=== PATIENT | male | born 1960 | race Caucasian/White ===

== ENCOUNTER → 2019-03-17 | Outpatient (CLI) | payer MEDICARE, MEDICAID ==
[~2019-03-17] MED LIST: BENZ200C25 PO; FAMO20TA5 PO; GADOBUTROL 10 MMOL/10 ML (GADAVIST) VIAL IV ONE; HYDR-34 PO; METO10TA3 PO; SLEEPING PILL; TETR15DR82 OP; TRAM50TA2 PO; TRAZ-144 PO
[2019-03-17 08:16] LABS: BUN/CREATININE RATIO 8; CREATININE SERUM 0.83 MG/DL (0.60-1.30); GFR ESTIMATED > 60
--- NOTE | 2019-03-17 11:07 | Diagnostic Imaging Report ---
MRI of the brain and IACs with and without contrast. Indication: Headache, hearing loss. Multiple images utilizing T1 and T2-weighted sequences were obtained. Additional images for following administration of intravenous contrast were also performed. Magnified images of the skull base were also obtained both before and after administration of intravenous contrast in both the coronal and axial planes. There are no prior studies available for comparison. The images through the skull base fail to show any abnormal enhancement of the 7th or 8th nerve complexes to suggest a mass lesion. There is no abnormal enhancement within the brain to suggest a neoplastic or infectious process either. Furthermore there is no abnormal signal arising from the brain on the diffusion series to indicate an area of acute ischemia. There is no mass, shift in midline or hemorrhage. The T2 FLAIR series does show focal and diffuse areas of increased signal in the periventricular white matter bilaterally. These findings are nonspecific but may be related to encephalomalacia from microvascular ischemia. There is also cortical atrophy. The degree of atrophy is consistent with the patient's age. The ventricles are not abnormally dilated. The sella is not enlarged and expected carotid flow voids are evident bilaterally. The orbits are symmetrical and within normal limits. The sinuses are generally clear. Impression: 1. There is no evidence for acute intracranial abnormality. 2. There is no abnormal enhancement on the postcontrast series to suggest a neoplastic or infectious process. In particular there is no abnormality of the 7th or 8th nerve complexes. 3. There are senescent changes including cortical atrophy and periventricular encephalomalacia. Dictated by: Dictated on workstation # [id number]
== END ==
LOC: RAD 07:46
PROVIDERS: ATTEND Otolaryngology Otolaryngology/Facial Plastic Surgery
DX: G93.89 Other specified disorders of brain (principal); G31.9 Degenerative disease of nervous system, unspecified; H91.8X1 Other specified hearing loss, right ear
CPT/HCPCS: 36415; 70553; 82565; 84520

== ENCOUNTER 2019-05-21 20:29 | Emergency (ER) | payer MEDICARE, MEDICAID ==
[~2019-05-21] VITALS: Ht 182.9 cm; Wt 80.0 kg
[~2019-05-21 20:29] MED LIST changes: -GADOBUTROL 10 MMOL/10 ML (GADAVIST) VIAL IV ONE
[2019-05-21] MEDS ORDERED: KETOROLAC 30 MG/ML VIAL IVP ONE (20:45)
[2019-05-21] MEDS ORDERED: THIAMINE INJECTION 100 MG, FOLIC ACID INJECTION 1 MG, VITAMIN MULTI INJECTION 10 ML, MA... IV ONE ×5 (20:45)
--- NOTE | 2019-05-21 20:48 | ED General ---
General Chief Complaint: General Problems/Pain Stated Complaint: PAIN ALL OVER Source of Information: Patient, EMS Exam Limitations: No Limitations History of Present Illness Date Seen by Provider: May 21, 2019 Time Seen by Provider: 20:31 Initial Comments Patient presents to ER by EMS from home with chief complaint that sometime aroun d noon he started experiencing some body aches mostly in his joints starting his knees working all at the top of his head. He took some aspirin about 4:00 in the afternoon with no relief. He is not having any rash or blistering. No itching or sweats. He denies fever nausea vomiting diarrhea dysuria or constipation. He's never had anything like this before. He started drinking had about 3 beers around 1900. He drinks beer daily. He has been on Bactrim for the past 4 days or infection. He's had 2 bladder infections this year. In years ago he was seen by Dr. Smith for prostatic issues but did not have to have any surgeries for follow-up. He does not take any medicines for this. He is followed by Silverio Lewis at [facility]. He has not taken any Tylenol or other NSAIDs. He does have chronic osteoarthritis and all of his joints. He is retired. He said he was not doing anything strenuous today just sitting around. He denies any recent trauma. He rates his pain as a 10 out of 10. He does not take a statin. Allergies and Home Medications Allergies Coded Allergies: Penicillins (Verified Allergy, Unknown, 06/25/14) penicillin (Unverified Allergy, Unknown, 01/03/15) Home Medications Benzonatate 200 Mg Capsule, 1 EACH PO TID PRN for COUGH Prescribed by: LEELA ANDREWS on 01/04/15 0035 Trazodone Hcl 50 Mg Tablet, 100 MG PO HS, (Reported) TAKE 2 (50MG) TABS Patient Home Medication List Home Medication List Reviewed: Yes Review of Systems Review of Systems Constitutional: No chills, No fever, No malaise EENTM: No ear discharge, No ear pain Respiratory: No cough, No short of breath Cardiovascular: No chest pain, No edema Gastrointestinal: No abdominal pain, No constipation, No diarrhea, No nausea, No vomiting Genitourinary: No discharge, No dysuria, No hematuria Musculoskeletal: see HPI, back pain, joint pain Skin: No pruritus, No rash Psychiatric/Neurological: Headache; Denies Numbness, Denies Paresthesia Hematologic/Lymphatic: Denies Anemia, Denies Blood Clots All Other Systems Reviewed Negative Unless Noted: Yes Past Qbhiisw-Jwmzkp-Fqzzxw Hx Patient Social History Alcohol Use: Regular Use Alcohol Beverage of Choice: Beer Recreational Drug Use: No Smoking Status: Current Everyday Smoker Type Used: Cigarettes Recent Foreign Travel: No Contact w/Someone Who Travel: No Past Medical History Abdominal, Eye Surgery Emphysema Cataract Sleep Difficulties Physical Exam Vital Signs Vital Signs - First Documented 05/21/19 20:37 Temp 37.0 Pulse 100 Resp 18 B/P (MAP) 158/93 (114) Pulse Ox 99 O2 Delivery Room Air Capillary Refill : Height, Weight, BMI Height: 6'0" Weight: 169lbs. oz. 76.611267mc; BMI Method:Stated General Appearance: No Apparent Distress, WD/WN, Anxious Eyes: Bilateral Eye Normal Inspection, Bilateral Eye PERRL, Bilateral Eye EOMI HEENT: PERRL/EOMI, TMs Normal, Normal ENT Inspection, Pharynx Normal, Moist Mucous Membranes (oral mucosa is mildly dry.), Other (face and neck appear to be flushed) Neck: Full Range of Motion, Normal Inspection, Non Tender, Supple Respiratory: Chest Non Tender, Lungs Clear, Normal Breath Sounds, No Accessory Muscle Use, No Respiratory Distress Cardiovascular: Regular Rate, Rhythm, No Edema, Normal Peripheral Pulses Gastrointestinal: Normal Bowel Sounds, Non Tender, Soft Back: Normal Inspection, No Vertebral Tenderness Extremity: Normal Capillary Refill, Normal Inspection, Non Tender (does not report any tenderness when we palpate his upper and lower extremities while distracted by conversation) Neurologic/Psychiatric: Alert, Oriented x3, No Motor/Sensory Deficits, Normal Mood/Affect, final cigar and box examiner II-XII Norm as Tested Skin: Normal Color, Warm/Dry, Other (flush in the face) Progress/Results/Core Measures Suspected Sepsis SIRS Temperature: Pulse: Respiratory Rate: Laboratory Tests 05/21/19 21:23: White Blood Count 8.4 Blood Pressure / Mean: Laboratory Tests 05/21/19 21:23: Creatinine 1.05, Platelet Count 199, Total Bilirubin 0.5 Results/Orders Lab Results Laboratory Tests Test 05/21/19 20:40 05/21/19 21:23 Range/Units Urine Color YELLOW Urine Clarity CLEAR Urine pH 5.5 5-9 Urine Specific [place] 1.015 L 1.016-1.022 Urine Protein 2+ H NEGATIVE Urine Glucose (UA) NEGATIVE NEGATIVE Urine Ketones NEGATIVE NEGATIVE Urine Nitrite NEGATIVE NEGATIVE Urine Bilirubin NEGATIVE NEGATIVE Urine Urobilinogen 0.2 < = 1.0 MG/DL Urine Leukocyte Esterase NEGATIVE NEGATIVE Urine RBC (Auto) 1+ H NEGATIVE Urine RBC 0-2 /HPF Urine WBC 2-5 /HPF Urine Crystals NONE /LPF Urine Bacteria TRACE /HPF Urine Casts NONE /LPF Urine Mucus NEGATIVE /LPF Urine Culture Indicated NO Urine Opiates Screen NEGATIVE NEGATIVE Urine Oxycodone Screen NEGATIVE NEGATIVE Urine Methadone Screen NEGATIVE NEGATIVE Urine Propoxyphene Screen NEGATIVE NEGATIVE Urine Barbiturates Screen NEGATIVE NEGATIVE Ur Tricyclic Antidepressants Screen NEGATIVE NEGATIVE Urine Phencyclidine Screen NEGATIVE NEGATIVE Urine Amphetamines Screen NEGATIVE NEGATIVE Urine Methamphetamines Screen NEGATIVE NEGATIVE Urine Benzodiazepines Screen NEGATIVE NEGATIVE Urine Cocaine Screen NEGATIVE NEGATIVE Urine Cannabinoids Screen NEGATIVE NEGATIVE White Blood Count 8.4 4.3-11.0 10^3/uL Red Blood Count 5.73 4.35-5.85 10^6/uL Hemoglobin 17.6 13.3-17.7 G/DL Hematocrit 47 40-54 % Mean Corpuscular Volume 83 80-99 FL Mean Corpuscular Hemoglobin 31 25-34 PG Mean Corpuscular Hemoglobin Concent 37 H 32-36 G/DL Red Cell Distribution Width 13.0 10.0-14.5 % Platelet Count 199 130-400 10^3/uL Mean Platelet Volume 10.4 7.4-10.4 FL Neutrophils (%) (Auto) 78 H 42-75 % Lymphocytes (%) (Auto) 11 L 12-44 % Monocytes (%) (Auto) 10 0-12 % Eosinophils (%) (Auto) 1 0-10 % Basophils (%) (Auto) 1 0-10 % Neutrophils # (Auto) 6.6 1.8-7.8 X 10^3 Lymphocytes # (Auto) 0.9 L 1.0-4.0 X 10^3 Monocytes # (Auto) 0.8 0.0-1.0 X 10^3 Eosinophils # (Auto) 0.0 0.0-0.3 10^3/uL Basophils # (Auto) 0.1 0.0-0.1 10^3/uL Sodium Level 129 L 135-145 MMOL/L Potassium Level 4.0 3.6-5.0 MMOL/L Chloride Level 100 98-107 MMOL/L Carbon Dioxide Level 16 L 21-32 MMOL/L Anion Gap 13 5-14 MMOL/L Blood Urea Nitrogen 9 7-18 MG/DL Creatinine 1.05 0.60-1.30 MG/DL Estimat Glomerular Filtration Rate > 60 BUN/Creatinine Ratio 9 Glucose Level 106 H 70-105 MG/DL Calcium Level 8.8 8.5-10.1 MG/DL Corrected Calcium 9.1 8.5-10.1 MG/DL Total Bilirubin 0.5 0.1-1.0 MG/DL Aspartate Amino Transf (AST/SGOT) 29 5-34 U/L Alanine Aminotransferase (ALT/SGPT) 30 0-55 U/L Alkaline Phosphatase 74 40-136 U/L C-Reactive Protein High Sensitivity 0.33 0.00-0.50 MG/DL Total Protein 7.1 6.4-8.2 GM/DL Albumin 3.6 3.2-4.5 GM/DL Serum Alcohol 45 H <10 MG/DL My Orders Orders - KIM MCDANIELS Thiamine Injection (Vitamin B-1 Injectio (05/21/19 20:45) Ketorolac Injection (Toradol Injection) (05/21/19 20:45) Cbc With Automated Diff (05/21/19 20:40) Comprehensive Metabolic Panel (05/21/19 20:40) Hs C Reactive Protein (05/21/19 20:40) Tick Panel With Lyme Eia (05/21/19 20:40) Ua Culture If Indicated (05/21/19 20:40) Drug Screen Stat (Urine) (05/21/19 20:40) Alcohol (05/21/19 20:40) Ed Iv/Invasive Line Start (05/21/19 21:02) Lactated Ringers (Lr 1000 Ml Iv Solution (05/21/19 21:02) Thiamine Tablet (Vitamin B-1 Tablet) (05/21/19 21:15) Folic Acid Tablet (Folic Acid Tablet) (05/21/19 21:15) Syphilis Antibody Screen (05/21/19 21:34) Medications Given in ED Current Medications Medications Dose Ordered Sig/Milo Route Start Time Stop Time Status Last Admin Dose Admin Folic Acid 1 mg ONCE ONCE PO 05/21/19 21:15 05/21/19 21:16 DC 05/21/19 21:28 1 MG Ketorolac Tromethamine 30 mg ONCE ONCE IVP 05/21/19 20:45 05/21/19 20:46 DC 05/21/19 21:28 30 MG Lactated Ringer's 1,000 ml @ 0 mls/hr Q0M ONCE IV 05/21/19 21:02 05/21/19 21:04 DC 05/21/19 21:28 0 MLS/HR Vital Signs/I&O 05/21/19 20:37 Temp 37.0 Pulse 100 Resp 18 B/P (MAP) 158/93 (114) Pulse Ox 99 O2 Delivery Room Air Capillary Refill : Progress Note #1: Time: 20:49 Progress Note Banana bags, Toradol and some basic labs. Suspect he may be having a reaction to the Bactrim and his alcohol use. Plan to switch him to Keflex if nothing else shows a interesting. Encourage him to follow-up with urology as necessary. Progress Note #2: Time: 21:56 Progress Note Patient received modest benefit from these Toradol. He been able to get up and walk to the bathroom several times. Suspect he does have prostatism. Plan to switch his antibiotic away from Bactrim to Keflex for another 6 days. We'll give him naproxen for the pain. He can also use Tylenol. We will encourage topical creams heating pads as well. Encourage him to follow-up with Dr. Smith. We will have him follow-up with primary care next week to follow up on the results of tick panel and RPR. Departure Impression Primary Impression: Myalgia Additional Impressions: Urinary tract infection Qualified Codes: N30.00 - Acute cystitis without hematuria Prostatism Disposition: HOME, SELF-CARE Condition: Stable Departure-Patient Inst. Decision time for Depature: 21:58 Referrals: [facility]/ (PCP) Primary Care Physician ABEBA LEWIS (Family) Primary Care Physician ALBA SMITH MD Patient Instructions: Benign Prostatic Hyperplasia (Enlarged Prostate), Urinary Tract Infection, Adult (DC), Muscle and Bone Pain (DC) Add. Discharge Instructions: For your pain you may use the prescription Naprosyn one capsule twice a day or [id number] 2 capsules twice a day. You may also use Tylenol 1000 mg every 8 hours as needed. Topical creams such as icy hot, Biofreeze, Aspercreme can be helpful. Heating pads may be helpful. Drink lots of fluids to help flush your kidneys. Plan to follow up next week with your primary care doctor to discuss the send out a tick panel and RPR. Return to the ER having worsening symptoms. Consider following up with urologist Dr. Smith to discuss methods of managing your prostate issues. Stop using the trimethoprim sulfamethoxazole (Bactrim). Start using Keflex one capsule twice daily for the next 6 days. All discharge instructions reviewed with patient and/or family. Voiced understanding. Scripts Naproxen (Naprosyn) 500 Mg Tablet 500 MG PO BID for 7 Days, #14 TAB 0 Refills Prov: KIM MCDANIELS 05/21/19 Cephalexin (Keflex) 500 Mg Capsule 500 MG PO BID for 6 Days, #12 CAP 0 Refills Prov: KIM MCDANIELS 05/21/19 KIM MCDANIELS May 21, 2019 20:48 POS
[2019-05-21 20:56] LABS: BILIRUBIN,URINE NEGATIVE (NEGATIVE); CLARITY,URINE CLEAR; COLOR,URINE YELLOW; GLUCOSE, URINE (UA) NEGATIVE (NEGATIVE); KETONES,URINE NEGATIVE (NEGATIVE); LEUKOCYTE ESTERASE ,URINE NEGATIVE (NEGATIVE); NITRITE,URINE NEGATIVE (NEGATIVE); PH,URINE 5.5 (5-9); PROTEIN,URINE 2+ (NEGATIVE)
[2019-05-21] MEDS ORDERED: LACTATED RINGERS 1,000 ML IV ONE (21:02)
[2019-05-21 21:15] LABS: AMPHETAMINE SCREEN, URINE NEGATIVE (NEGATIVE); BARBITURATE SCREEN URINE NEGATIVE (NEGATIVE); BENZODIAZEPINES SCREEN URINE NEGATIVE (NEGATIVE); CANNABINOID SCREEN, URINE NEGATIVE (NEGATIVE); COCAINE SCREEN URINE NEGATIVE (NEGATIVE); METHADONE STAT NEGATIVE (NEGATIVE); METHAMPHETAMINE SCREEN URINE S NEGATIVE (NEGATIVE); OPIATE SCREEN URINE NEGATIVE (NEGATIVE); OXYCODONE STAT NEGATIVE (NEGATIVE); PROPOXYPHENE STAT NEGATIVE (NEGATIVE); TRICYCLIC ANTIDEPRESSANTS SCRE NEGATIVE (NEGATIVE)
[2019-05-21] MEDS ORDERED: THIAMINE 100 MG (VITAMIN B-1) TAB PO ONE (21:15)
[2019-05-21] MEDS ORDERED: FOLIC ACID 1 MG TAB PO ONE (21:15)
[2019-05-21 21:22] LABS: RBC,URINE 0-2 /HPF
[2019-05-21 21:23] LABS: BACTERIA,URINE TRACE /HPF
[2019-05-21 21:38] LABS: BASOPHILS # (AUTO) 0.1 10^3/uL (0.0-0.1); BASOPHILS % (AUTO) 1 % (0-10); EOSINOPHILS % (AUTO) 1 % (0-10); HEMATOCRIT 47 % (40-54); HEMOGLOBIN 17.6 G/DL (13.3-17.7); LYMPHOCYTES # (AUTO) 0.9 X 10^3 (1.0-4.0); LYMPHOCYTES % (AUTO) 11 % (12-44); MEAN CORPUSCULAR HEMOGLOBIN 31 PG (25-34); MEAN CORPUSCULAR HGB CONC 37 G/DL (32-36); MEAN CORPUSCULAR VOLUME 83 FL (80-99); MEAN PLATELET VOLUME 10.4 FL (7.4-10.4); MONOCYTES # (AUTO) 0.8 X 10^3 (0.0-1.0); MONOCYTES % (AUTO) 10 % (0-12); NEUTROPHILS # (AUTO) 6.6 X 10^3 (1.8-7.8); NEUTROPHILS % (AUTO) 78 % (42-75); PLATELET COUNT 199 10^3/uL (130-400); WHITE BLOOD COUNT 8.4 10^3/uL (4.3-11.0)
[2019-05-21 21:49] LABS: ALANINE AMINOTRANSFERASE 30 U/L (0-55); ALBUMIN 3.6 GM/DL (3.2-4.5); ALKALINE PHOSPHATASE 74 U/L (40-136); BILIRUBIN,TOTAL 0.5 MG/DL (0.1-1.0); BUN/CREATININE RATIO 9; CALCIUM 8.8 MG/DL (8.5-10.1); CARBON DIOXIDE 16 MMOL/L (21-32); CHLORIDE 100 MMOL/L (98-107); CREATININE SERUM 1.05 MG/DL (0.60-1.30); GFR ESTIMATED > 60; GLUCOSE 106 MG/DL (70-105); SODIUM 129 MMOL/L (135-145); TOTAL PROTEIN 7.1 GM/DL (6.4-8.2)
[2019-05-21] MEDS ORDERED: NAPR-1071 PO (22:02)
[2019-05-21] MEDS ORDERED: CEPH-507 PO (22:02)
[2019-05-21 22:17] VITALS: BP 131/90
--- NOTE | 2019-06-16 08:39 | NUR ---
[facility] called to confirm pt was placed on doxy. Noted in culture book doxy was called in for pt.
== END 2019-05-21 22:17 | disposition home or self-care (01) ==
LOC: EDUNIT# 20:29 → ER 20:30
DX: M79.18 Myalgia, other site (principal); N39.0 Urinary tract infection, site not specified; N40.1 Benign prostatic hyperplasia with lower urinary tract symptoms; J43.9 Emphysema, unspecified; F17.210 Nicotine dependence, cigarettes, uncomplicated; Z88.0 Allergy status to penicillin
CPT/HCPCS: 36415; 80053; 80306; 80320; 81000; 82550; 85025; 86141; 86617; 86618; 86666; 86668; 86757; 86780; 96361; 96374

== ENCOUNTER 2020-01-03 11:26 | Emergency (ER) | payer MEDICARE, MEDICAID ==
[~2020-01-03] VITALS: Ht 177 cm; Wt 77.0 kg
[~2020-01-03 11:26] MED LIST changes: +CEPH-507 PO; +NAPR-1071 PO
--- OUTSIDE RECORDS SUMMARY | 2020-01-03 11:34 | XMS REPORT ---
Author Author Chinmay WEST Organization [facility] Address [address] [place] [address] Care Team Providers Care Special Delivery Carrier Name Role Phone ABEBA WEST Unavailable PROBLEMS Type Condition ICD9-CM Code [id number] Code Onset Dates Condition S tatus SNOMED Code Problem Dupuytren's contracture of right hand M72.0 Active [id number] Problem Primary insomnia F51.01 Active 397 2004 Problem Dupuytren contracture M72.0 Active 912976815 Problem Other chronic pain G89.29 Active 8 0915274 Problem Hypertension, benign I10 Active 81588271 ALLERGIES Substance Reaction Event Type Date Status Penicillin V Potassium rash Drug Allergy Jan, Activ e ENCOUNTERS Encounter Location Date Diagnosis [facility] [address] [facility] [id number] [address] [place] [phone] Feb, [facility] [address] [facility] [id number] [address] [place] [phone] Jan, Dupuytren's contracture of r ight hand M72.0 [facility] [address] [facility] [id number] [address] [place] [phone] Jan, Dupuytren's contracture of r ight hand M72.0 ; Hypertension, benign I10 and Primary insomnia F51.01 [facility] [address] [facility] [id number] [address] [place] [phone] Dec, Primary insomnia F51.01 [facility] [address] [facility] [id number] [address] [place] [phone] Sep, Frontal headache R51 [facility] [address] [facility] [id number] [address] [place] [phone] Aug, [facility] [address] [facility] [id number] [address] [place] [phone] 13 Aug, 2017 Dupuytren's contracture M72. 0 and Ganglion cyst of volar aspect of right wrist M67.431 [facility] [address] [facility] [id number] [address] [place] [phone] 15 Jul, 2017 Primary insomnia F51.01 ; Hy pertension, benign I10 ; Family history of early CAD Z82.49 ; Low back pain M54.5 ; Family history of diabetes mellitus Z83.3 ; Other chronic pain G89.29 ; Dupuytren contracture M72.0 and Ganglion of right wrist M67.431 [facility] [address] [facility] [id number] [address] [place] [phone] 14 Jul, 2017 Primary insomnia F51.01 ; Lo w back pain M54.5 ; Other chronic pain G89.29 ; Dupuytren contracture M72.0 ; Ganglion of right wrist M67.431 ; Hypertension, benign I10 ; Family history of early CAD Z82.49 and Family history of diabetes mellitus Z83.3 IMMUNIZATIONS No Known Immunizations SOCIAL HISTORY Never Assessed REASON FOR VISIT Muscle Spasms Pt states he is here for medication refills, also has a spot on R hand that is growing and making pinky sore, states has gotten a "shot" in it before [facility] PLAN OF CARE VITAL SIGNS Height 72 in 2018-01-29 Weight 179.7 lbs 2018-01-29 Temperature 98.4 degrees Fahrenheit 2018-01-29 Heart Rate 84 bpm 2018-01-29 Respiratory Rate 18 2018-01-29 BMI 24.37 kg/m2 2018-01-29 Blood pressure systolic 142 mmHg 2018-01-29 Blood pressure diastolic 82 mmHg 2018-01-29 MEDICATIONS Medication Instructions Dosage Frequency Start Date End Date Duration S tatus Cyclobenzaprine HCl 10 mg Orally 2 times a day 1 tablet as needed 12h Active Hydrocodone-Acetaminophen 5-325 MG Orally every 4 hours as n eeded 1 tablet as needed Jan, Active Famotidine 20 mg Orally twice a day as needed 1 tablet Active Diclofenac Sodium 50 mg Orally Twice a day as needed 1 tablet wi th food or milk Active Trazodone HCl 50 mg Orally at bedtime 2 tablets Active RESULTS No Results PROCEDURES No Known procedures INSTRUCTIONS MEDICATIONS ADMINISTERED No Known Medications MEDICAL (GENERAL) HISTORY Type Description Date Medical History heartburn Medical History back pain Medical History meningitis at age 6 months Medical History emphysema Surgical History izzy inguinal hernia repair Surgical History izzy catarcts Hospitalization History surgeries
--- OUTSIDE RECORDS SUMMARY | 2020-01-03 11:34 | XMS REPORT ---
Author Author Chinmay WEST Organization [facility] Address [address] [place] [address] Care Team Providers Care Precinct Commanding Officer Name Role Phone ABEBA WEST Unavailable PROBLEMS Type Condition ICD9-CM Code [id number] Code Onset Dates Condition S tatus SNOMED Code Problem Primary insomnia F51.01 Active 397 2004 Problem Other chronic pain G89.29 Active 8 7090522 Problem Hypertension, benign I10 Active 15844148 Problem Dupuytren contracture M72.0 Active 537404499 ALLERGIES Substance Reaction Event Type Date Status Penicillin V Potassium rash Drug Allergy Aug, Activ e ENCOUNTERS Encounter Location Date Diagnosis [place] [address] [place] [id number] [place] [phone] Sep, Frontal headache R51 [place] [address] [place] [id number] [address] [place] [phone] 28 Aug, 2017 [place] [address] [place] [id number] [address] [place] [phone] 13 Aug, 2017 Dupuytren's contracture M72. 0 and Ganglion cyst of volar aspect of right wrist M67.431 [place] [address] [place] [id number] [address] [place] [phone] 15 Jul, 2017 Primary insomnia F51.01 ; Hy pertension, benign I10 ; Family history of early CAD Z82.49 ; Low back pain M54.5 ; Family history of diabetes mellitus Z83.3 ; Other chronic pain G89.29 ; Dupuytren contracture M72.0 and Ganglion of right wrist M67.431 [place] [address] [facility] [id number] [address] [place] [phone] 14 Jul, 2017 Primary insomnia F51.01 ; Lo w back pain M54.5 ; Other chronic pain G89.29 ; Dupuytren contracture M72.0 ; Ganglion of right wrist M67.431 ; Hypertension, benign I10 ; Family history of early CAD Z82.49 and Family history of diabetes mellitus Z83.3 IMMUNIZATIONS No Known Immunizations SOCIAL HISTORY Never Assessed REASON FOR VISIT Ganglion Cyst Removal x2 from the right hand-[place] [facility] PLAN OF CARE Activity Details Future/Pending Procedure ASPIRATE/INJ GANGLION CYST Future/Pending Procedure INJECTION INTO SKIN LESIONS VITAL SIGNS Height 72 in 2017-08-27 Weight 181.7 lbs 2017-08-27 Temperature 98.5 degrees Fahrenheit 2017-08-27 Heart Rate 78 bpm 2017-08-27 Respiratory Rate 18 2017-08-27 BMI 24.64 kg/m2 2017-08-27 Blood pressure systolic 122 mmHg 2017-08-27 Blood pressure diastolic 78 mmHg 2017-08-27 MEDICATIONS Medication Instructions Dosage Frequency Start Date End Date Duration S tatus Diclofenac Sodium 50 mg Orally Twice a day as needed 1 tablet wi th food or milk Not-Taking Ventolin HFA 90 MCG/ACT Inhalation every 6 hrs 2 puffs as needed 6h Not-Taking Famotidine 20 mg Orally twice a day as needed 1 tablet Not-Taking Trazodone HCl 50 mg Orally at bedtime 2 tablets Active Hydrocodone-Acetaminophen 5-325 MG Orally every 4 hours as n eeded 1 tablet as needed Not-Taking Cyclobenzaprine HCl 10 mg Orally 2 times a day 1 tablet as needed 12h Not-Taking RESULTS No Results PROCEDURES Procedure Date Ordered Result Body Site ASPIRATE/INJ GANGLION CYST August 27, 2017 INJECTION INTO SKIN LESIONS August 27, 2017 [facility] VISIT ESTABLISHED PATIENT August 27, 2017 INSTRUCTIONS MEDICATIONS ADMINISTERED No Known Medications MEDICAL (GENERAL) HISTORY Type Description Date Medical History heartburn Medical History back pain Medical History meningitis at age 6 months Medical History emphysema Surgical History izzy inguinal hernia repair Surgical History izzy catarcts Hospitalization History surgeries
--- OUTSIDE RECORDS SUMMARY | 2020-01-03 11:34 | XMS REPORT ---
Author Author Chinmay WEST Organization [facility] Address [address] [place] [address] Care Team Providers Care Grinding Machine Tender Name Role Phone ABEBA WEST Unavailable PROBLEMS Type Condition ICD9-CM Code [id number] Code Onset Dates Condition S tatus SNOMED Code Problem Primary insomnia F51.01 Active 397 2004 Problem Other chronic pain G89.29 Active 8 4998133 Problem Hypertension, benign I10 Active 50828630 Problem Dupuytren contracture M72.0 Active 633678680 ALLERGIES Substance Reaction Event Type Date Status Penicillin V Potassium rash Drug Allergy Sep, Activ e ENCOUNTERS Encounter Location Date Diagnosis [place] [address] [place] [id number] [place] [phone] Jan, [place] [address] [place] [id number] [place] [phone] Dec, Primary insomnia F51.01 [place] [address] [place] [id number] [place] [phone] Sep, Frontal headache R51 [place] [address] [place] [id number] [place] [phone] Aug, [place] [address] [place] [id number] [place] [phone] Aug, Dupuytren's contracture M72. 0 and Ganglion cyst of volar aspect of right wrist M67.431 [place] [address] [place] [id number] [place] [phone] 15 Jul, 2017 Primary insomnia F51.01 ; Hy pertension, benign I10 ; Family history of early CAD Z82.49 ; Low back pain M54.5 ; Family history of diabetes mellitus Z83.3 ; Other chronic pain G89.29 ; Dupuytren contracture M72.0 and Ganglion of right wrist M67.431 [facility] [address] [facility] [id number] [address] [place] [address] 14 Jul, 2017 Primary insomnia F51.01 ; Lo w back pain M54.5 ; Other chronic pain G89.29 ; Dupuytren contracture M72.0 ; Ganglion of right wrist M67.431 ; Hypertension, benign I10 ; Family history of early CAD Z82.49 and Family history of diabetes mellitus Z83.3 IMMUNIZATIONS No Known Immunizations SOCIAL HISTORY Never Assessed REASON FOR VISIT Pain above the left eye blurred vision in the left eye and a massive headache [facility] PLAN OF CARE VITAL SIGNS Height 72 in 2017-10-10 Weight 177 lbs 2017-10-10 Temperature 98.6 degrees Fahrenheit 2017-10-10 Heart Rate 82 bpm 2017-10-10 Respiratory Rate 18 2017-10-10 BMI 24.00 kg/m2 2017-10-10 Blood pressure systolic 128 mmHg 2017-10-10 Blood pressure diastolic 82 mmHg 2017-10-10 MEDICATIONS Medication Instructions Dosage Frequency Start Date End Date Duration S tatus Hydrocodone-Acetaminophen 5-325 MG Orally every 4 hours as n eeded 1 tablet as needed Not-Taking Famotidine 20 mg Orally twice a day as needed 1 tablet Not-Taking Cyclobenzaprine HCl 10 mg Orally 2 times a day 1 tablet as needed 12h Not-Taking Nabumetone 500 mg Orally Twice a day 1 tablet 12h Sep, Nov, 30 day(s) Active Diclofenac Sodium 50 mg Orally Twice a day as needed 1 tablet wi th food or milk Not-Taking Trazodone HCl 50 mg Orally at bedtime 2 tablets Active Ventolin HFA 90 MCG/ACT Inhalation every 6 hrs 2 puffs as needed 6h Not-Taking RESULTS No Results PROCEDURES Procedure Date Ordered Result Body Site [facility] VISIT ESTABLISHED PATIENT October 10, 2017 INSTRUCTIONS MEDICATIONS ADMINISTERED No Known Medications MEDICAL (GENERAL) HISTORY Type Description Date Medical History heartburn Medical History back pain Medical History meningitis at age 6 months Medical History emphysema Surgical History izzy inguinal hernia repair Surgical History izzy catarcts Hospitalization History surgeries
--- OUTSIDE RECORDS SUMMARY | 2020-01-03 11:34 | XMS REPORT ---
Author Author Chinmay WEST Organization [facility] Address [address] [place] [address] Care Team Providers Care Phlebotomy Technologist Name Role Phone ABEBA WEST Unavailable PROBLEMS Type Condition ICD9-CM Code [id number] Code Onset Dates Condition S tatus SNOMED Code Problem Primary insomnia F51.01 Active 397 2004 Problem Other chronic pain G89.29 Active 8 0517312 Problem Hypertension, benign I10 Active 94190276 Problem Dupuytren contracture M72.0 Active [id number] ALLERGIES No Information ENCOUNTERS Encounter Location Date Diagnosis [place] [address] [place] [id number] [place] [phone] Sep, Frontal headache R51 [place] [address] [place] [id number] [place] [phone] 28 Aug, 2017 [place] [address] [place] [id number] [place] [phone] 13 Aug, 2017 Dupuytren's contracture M72. 0 and Ganglion cyst of volar aspect of right wrist M67.431 [place] [address] [place] [id number] [place] [phone] 15 Jul, 2017 Primary insomnia F51.01 ; Hy pertension, benign I10 ; Family history of early CAD Z82.49 ; Low back pain M54.5 ; Family history of diabetes mellitus Z83.3 ; Other chronic pain G89.29 ; Dupuytren contracture M72.0 and Ganglion of right wrist M67.431 [place] [address] [place] [id number] [place] [phone] 14 Jul, 2017 Primary insomnia F51.01 ; Lo w back pain M54.5 ; Other chronic pain G89.29 ; Dupuytren contracture M72.0 ; Ganglion of right wrist M67.431 ; Hypertension, benign I10 ; Family history of early CAD Z82.49 and Family history of diabetes mellitus Z83.3 IMMUNIZATIONS No Known Immunizations SOCIAL HISTORY Never Assessed REASON FOR VISIT Lab (walk-in) PLAN OF CARE VITAL SIGNS MEDICATIONS Unknown Medications RESULTS No Results PROCEDURES Procedure Date Ordered Result Body Site [facility] Aug [facility], 2017 VENIPUNCT, ROUTINE* Aug 01, 2017 INSTRUCTIONS MEDICATIONS ADMINISTERED No Known Medications MEDICAL (GENERAL) HISTORY Type Description Date Medical History heartburn Medical History back pain Medical History meningitis at age 6 months Medical History emphysema Surgical History izzy inguinal hernia repair Surgical History izzy catarcts Hospitalization History surgeries
--- OUTSIDE RECORDS SUMMARY | 2020-01-03 11:34 | XMS REPORT ---
Author Author Chinmay WEST [facility] Address [address] [place] [address] Care Team Providers Care Barrel Tester And Drainer Name Role Phone ABEBA WEST Unavailable PROBLEMS ALLERGIES ENCOUNTERS IMMUNIZATIONS No Known Immunizations SOCIAL HISTORY No smoking Hx information available REASON FOR VISIT PLAN OF CARE VITAL SIGNS MEDICATIONS RESULTS No Results PROCEDURES INSTRUCTIONS MEDICATIONS ADMINISTERED No Known Medications MEDICAL (GENERAL) HISTORY
--- OUTSIDE RECORDS SUMMARY | 2020-01-03 11:34 | XMS REPORT ---
Author Author Chinmay WEST Organization [facility] Address [address] [place] [address] Care Team Providers Care Ground Crew Linesman Name Role Phone ABEBA WEST Unavailable PROBLEMS Type Condition ICD9-CM Code ING53-NP Code Onset Dates Condition S tatus SNOMED Code Problem Other chronic pain G89.29 Active 8 8841958 Problem Primary insomnia F51.01 Active 397 2004 Problem Dupuytrens contracture M72.0 Active 399168012 Problem Other elevated white blood cell (WBC) count D72.82 8 Active 732525265 Problem Hypertension, benign I10 Active 38078276 Problem Dupuytren contracture M72.0 Active 348864586 Problem Dupuytren's contracture of right hand M72.0 Active [id number] Problem Panlobular emphysema J43.1 Active 9520770 ALLERGIES Substance Reaction Event Type Date Status Penicillin V Potassium rash Drug Allergy Aug, Activ e ENCOUNTERS Encounter Location Date Diagnosis [place] [address] [phone] Jun, [facility] [address] [address] May, [facility] [address] [address] May, [facility] [address] [address] May, [facility] [address] [address] May, Body aches R52 [facility] [address] [address] May, Body aches R52 [facility] [address] [address] May, [facility] [address] [address] May, [place] [address] [address] Apr, Dysuria R30.0 [place] [address] [address] Mar, Hypertension, benign I10 ; Other elevate d white blood cell (WBC) count D72.828 ; Low back pain M54.5 and Other chronic pain G89.29 [place] [address] [address] Mar, [place] [address] [address] Feb, [facility] [address] [facility] [id number] [place] [address] 05 Feb, 2019 Urinary frequency R35.0 ; Dy suria R30.0 and Right otitis media with effusion H65.91 [place] [address] [address] Feb, Ganglion of right wrist M67.431 [place] [address] [address] Jan, [place] [address] [address] Jan, Right otitis media with effusion H65.91 ; Dupuytrens contracture M72.0 and Ganglion cyst of volar aspect of right wrist M67.431 [place] [address] [address] Aug, Encounter for Medicare annual wellness e xam Z00.00 ; Panlobular emphysema J43.1 ; Hypertension, benign I10 ; Other chronic pain G89.29 and Dupuytren's contracture of right hand M72.0 [place] [address] [address] Jul, Dupuytren's contracture of right hand M7 2.0 [place] [address] [address] Jun, Panlobular emphysema J43.1 [place] [address] [address] Feb, Dizziness on standing R42 [place] [address] [address] Jan, Dupuytren's contracture of right hand M7 2.0 [place] [address] [address] Jan, Dupuytren's contracture of right hand M7 2.0 ; Hypertension, benign I10 and Primary insomnia F51.01 [place] [address] [address] Dec, Primary insomnia F51.01 [place] [address] [address] Sep, Frontal headache R51 [place] [address] [address] Aug, [place] [address] [address] Aug, Dupuytren's contracture M72.0 and Gangli on cyst of volar aspect of right wrist M67.431 [place] [address] [address] 15 Jul, 2017 Primary insomnia F51.01 ; Hypertension, benign I10 ; Family history of early CAD Z82.49 ; Low back pain M54.5 ; Family history of diabetes mellitus Z83.3 ; Other chronic pain G89.29 ; Dupuytren contracture M72.0 and Ganglion of right wrist M67.431 [place] [address] [address] 14 Jul, 2017 Primary insomnia F51.01 ; Low back pain M54.5 ; Other chronic pain G89.29 ; Dupuytren contracture M72.0 ; Ganglion of right wrist M67.431 ; Hypertension, benign I10 ; Family history of early CAD Z82.49 and Family history of diabetes mellitus Z83.3 IMMUNIZATIONS No Known Immunizations SOCIAL HISTORY Never Assessed REASON FOR VISIT Medicare AWV -ANderson [place] PLAN OF CARE Activity Details Follow Up 1 Year Reason:AWV VITAL SIGNS Height 72 in 2018-08-18 Weight 179 lbs 2018-08-18 Temperature 98.4 degrees Fahrenheit 2018-08-18 Heart Rate 104 bpm 2018-08-18 Respiratory Rate 18 2018-08-18 Oximetry 97 % 2018-08-18 BMI 24.27 kg/m2 2018-08-18 Blood pressure systolic 140 mmHg 2018-08-18 Blood pressure diastolic 70 mmHg 2018-08-18 MEDICATIONS Medication Instructions Dosage Frequency Start Date End Date Duration S tatus Trazodone HCl 50 mg Orally at bedtime 2 tablets 30 Active Ventolin HFA 108 (90 Base) MCG/ACT Inhalation every 6 hrs 2 puffs a s needed 6h Active Laxative Active Cyclobenzaprine HCl 10 mg Orally 2 times a day 1 tablet as needed 12h Active Hydrocodone-Acetaminophen 5-325 MG Orally every 4 hours as n eeded 1 tablet as needed Jan, Active Diclofenac Sodium 50 mg Orally Twice a day as needed 1 tablet wi th food or milk Active Famotidine 20 mg Orally twice a day as needed 1 tablet Active RESULTS No Results PROCEDURES Procedure Date Ordered Result Body Site ANNUAL [facility]ES VST; [facility] PPS INIT August 18, 2018 INSTRUCTIONS MEDICATIONS ADMINISTERED No Known Medications MEDICAL (GENERAL) HISTORY Type Description Date Medical History heartburn Medical History back pain Medical History meningitis at age 6 months Medical History emphysema Surgical History izzy inguinal hernia repair Surgical History izzy catarcts Hospitalization History surgeries
--- OUTSIDE RECORDS SUMMARY | 2020-01-03 11:34 | XMS REPORT ---
Author Author Chinmay WEST Organization [facility] Address [address] [place] [address] Care Team Providers Care Photo Checker Name Role Phone BAEBA WEST Unavailable PROBLEMS Type Condition ICD9-CM Code ORA27-DO Code Onset Dates Condition S tatus SNOMED Code Problem Primary insomnia F51.01 Active 397 2004 Problem Other chronic pain G89.29 Active 8 8191837 Problem Hypertension, benign I10 Active 29047677 Problem Dupuytren contracture M72.0 Active 943963150 ALLERGIES No Information ENCOUNTERS Encounter Location Date Diagnosis [place] [address] [place] [id number] [place] [phone] Sep, Frontal headache R51 [place] [address] [place] [id number] [place] [phone] 28 Aug, 2017 [place] [address] [place] [id number] [place] [phone] 13 Aug, 2017 Dupuytren's contracture M72. 0 and Ganglion cyst of volar aspect of right wrist M67.431 [place] [address] [place] [id number] [place] [phone] 15 Jul, 2017 Primary insomnia F51.01 ; Hy pertension, benign I10 ; Family history of early CAD Z82.49 ; Low back pain M54.5 ; Family history of diabetes mellitus Z83.3 ; Other chronic pain G89.29 ; Dupuytren contracture M72.0 and Ganglion of right wrist M67.431 [place] [address] [place] [id number] [place] [phone] 14 Jul, 2017 Primary insomnia F51.01 ; Lo w back pain M54.5 ; Other chronic pain G89.29 ; Dupuytren contracture M72.0 ; Ganglion of right wrist M67.431 ; Hypertension, benign I10 ; Family history of early CAD Z82.49 and Family history of diabetes mellitus Z83.3 IMMUNIZATIONS No Known Immunizations SOCIAL HISTORY Never Assessed REASON FOR VISIT Refill request PLAN OF CARE VITAL SIGNS MEDICATIONS Medication Instructions Dosage Frequency Start Date [...]
--- OUTSIDE RECORDS SUMMARY | 2020-01-03 11:34 | XMS REPORT ---
Author Author Chinmay WEST Organization [facility] Address [address] [place] [address] Care Team Providers Care Desizing Machine Back Tender Name Role Phone ABEBA WEST Unavailable PROBLEMS Type Condition ICD9-CM Code FGR15-DW Code Onset Dates Condition S tatus SNOMED Code Problem Primary insomnia F51.01 Active 397 2004 Problem Other chronic pain G89.29 Active 8 3002758 Problem Hypertension, benign I10 Active 38391347 Problem Dupuytren contracture M72.0 Active 536084535 ALLERGIES Substance Reaction Event Type Date Status Penicillin V Potassium rash Drug Allergy 14 Jul, 2017 Activ e ENCOUNTERS Encounter Location Date Diagnosis [place] [address] [place] [id number] [place] [phone] 26 Sep, 2017 Frontal headache R51 [place] [address] [place] [id number] [place] [phone] 28 Aug, 2017 [place] [address] [place] [id number] [place] [phone] 13 Aug, 2017 Dupuytren's contracture M72. 0 and Ganglion cyst of volar aspect of right wrist M67.431 [place] [address] [place] [id number] [place] [phone] 15 Jul, 2017 Primary insomnia F51.01 ; Hy pertension, benign I10 ; Family history of early CAD Z82.49 ; Low back pain M54.5 ; Family history of diabetes mellitus Z83.3 ; Other chronic pain G89.29 ; Dupuytren contracture M72.0 and Ganglion of right wrist M67.431 [place] [address] [address] [facility] [id number] [place] [phone] 14 Jul, 2017 Primary insomnia F51.01 ; Lo w back pain M54.5 ; Other chronic pain G89.29 ; Dupuytren contracture M72.0 ; Ganglion of right wrist M67.431 ; Hypertension, benign I10 ; Family history of early CAD Z82.49 and Family history of diabetes mellitus Z83.3 IMMUNIZATIONS No Known Immunizations SOCIAL HISTORY Never Assessed REASON FOR VISIT Establish Care, moved to [place] from [facility]. , wants knots on right hand and wrist looked at, reports having them for a while, denies pain in them. [facility] VITAL SIGNS Height 72 in 2017-07-31 Weight 177.6 lbs 2017-07-31 Temperature 98.6 degrees Fahrenheit 2017-07-31 Heart Rate 84 bpm 2017-07-31 Respiratory Rate 18 2017-07-31 BMI 24.08 kg/m2 2017-07-31 Blood pressure systolic 140 mmHg 2017-07-31 Blood pressure diastolic 86 mmHg 2017-07-31 MEDICATIONS Medication Instructions Dosage Frequency Start Date End Date Duration S tatus Hydrocodone-Acetaminophen 5-325 MG Orally every 4 hours as n eeded 1 tablet as needed Active Ventolin HFA 90 MCG/ACT Inhalation every 6 hrs 2 puffs as needed 6h Active Famotidine 20 mg Orally twice a day as needed 1 tablet Active Diclofenac Sodium 50 mg Orally Twice a day as needed 1 tablet wi th food or milk Active Cyclobenzaprine HCl 10 mg Orally 2 times a day 1 tablet as needed 12h Active Trazodone HCl 50 mg Orally at bedtime 2 tablets Active RESULTS No Results PROCEDURES Procedure Date Ordered Result Body Site [facility] VISIT ESTABLISHED PATIENT Jul 31, 2017 INSTRUCTIONS MEDICATIONS ADMINISTERED No Known Medications MEDICAL (GENERAL) HISTORY Type Description Date Medical History heartburn Medical History back pain Medical History meningitis at age 6 months Medical History emphysema Surgical History izzy inguinal hernia repair Surgical History izzy catarcts Hospitalization History surgeries
--- OUTSIDE RECORDS SUMMARY | 2020-01-03 11:34 | XMS REPORT ---
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 Address [address] [address] Care Team Providers Care Disease Case Manager Name Role Phone ABEBA WEST Unavailable ABEBA WEST Unavailable ABEBA WEST Unavailable ABEBA WEST Unavailable ABEBA WEST Unavailable ABEBA WEST Unavailable ABEBA WEST Unavailable ABEBA WEST Unavailable SCOTT MARISCAL DO Unavailable Unavailable LEELA ANDREWS DO Unavailable Unavailable ABEBA WEST Unavailable Unavailable LUIS FRITZ, ALBA Calderon Unavailable Unavailable GERMAN FRITZ, RAYRAY Leiva Unavailable Unavailable VAMSHI FRITZ, ALEJANDRA Chowdhury Unavailable Unavailable KIM MCDANIELS Unavailable Unavailable [facility] P[facility] [phone] ABEBA WEST Unavailable Unavailable Unavailable Unavailable Unavailable Unavailable Unavailable Allergies The data below is from unstructured sources No Information No Information No Information Encounters Encounter Date Encounter Type Encounter Diagnosis Care Provider Facility Start: Telephone encounter ABEBA [facility] 06-29-2019 Start: [facility]-16-2019 Start: Telephone encounter [facility] 06-11-2019 Start: Telephone encounter [facility] 06-09-2019 Start: Patient encounter ABEBA WEST [facility] 06-04-2019 procedure Center [facility] ([id number]) Start: Consultation for Pain, unspecified ABEBA WEST [facility] 06-04-2019 laboratory medicine Start: Telephone encounter Pain[facility] unspecified [facility] 06-03-2019 Start[facility] Emergency department [facility] 05-21-2019 patient visit Work Phone: [place] [phone] End: 05-22-2019 Start: Emergency department KIM MCDANIELS [facility] Via [facility] 05-21-2019 patient visit [facility] ([id number]) End: 05-21-2019 Start: Patient encounter KIM MCDANIELS [facility] 05-21-2019 procedure [facility] ([id number]) Start: Patient encounter ABEBA WEST [facility] 05-13-2019 procedure [facility] ([id number]) Start: [facility] Dysuria ABEBA WEST [facility] 05-13-2019 Start: Patient encounter NA NA [facility] 04-15-2019 procedure [facility] ([id number]) Start: [facility] Essential (primary) ABEBA WHYTE [facility] 04-15-2019 hypertension Start: Telephone encounter [facility] 04-11-2019 Start: Patient encounter RAYRAY PORTER MD [facility] Via C hristi 03-17-2019 procedure [facility] ([id number]) Start: Telephone encounter ABEBA WEST [facility] 02-23-2019 Start: [facility] Frequency of [place] [facility] 02-19-2019 CARE micturition CARE Start: Patient encounter Ganglion, right wrist EMMETT AG [facility] 02-19-2019 procedure Start: Telephone encounter [facility] 02-07-2019 Start: Patient encounter ABEBA WEST [facility] 01-15-2019 procedure [facility] ([id number]) Start: [facility] Unspecified ABEBA WEST [facility] 01-15-2019 nonsuppurative otitis media, right ear Start: Patient encounter Encounter for general ABEBA Chavarria [facility] 08-18-2018 procedure adult medical examination without abnormal findings Start: PPPS, initial visit ABEBA WEST Pending [facility] To [facility] 08-18-2018 Other Phone: [facility] [place] ([id number]) Start: Telephone encounter 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] Start: [facility] Panlobular emphysema ABEBA WEST [facility] 06-23-2018 Start: Patient encounter CORRINA HOUSER [facility] 03-10-2018 procedure [facility] ([id number]) Start: [facility] Dizziness and ABEBA Wallace [facility] 03-10-2018 giddiness End: 03-10-2018 Start: [facility] Palmar fascial ABEBA WEST [facility] 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] End: 02-11-2018 Start: [facility] Palmar fascial ABEBA WEST [facility] 01-29-2018 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] End: 01-29-2018 Start: Patient encounter ABEBA WEST [facility] 08-27-2017 procedure [facility] ([id number]) Start: Patient encounter 08-01-2017 procedure Start: Patient encounter ABEBA WEST [facility] 07-31-2017 procedure [facility] ([id number]) Start: Patient encounter SCOTT MARISCAL DO Not Avail able ([id number]) 12-15-2015 procedure Start: Patient encounter SCOTT MARISCAL DO [facility] Via C hristi 12-15-2015 [facility] ([id number]) Start: Patient encounter SCOTT MARISCAL DO [facility] Via C hristi 09-09-2015 [facility] ([id number]) Start: Patient encounter SCOTT MARISCAL DO [facility] Via C hristi 09-09-2015 [facility] ([id number]) Start: Emergency department LEELA DARRYL DO [facility] Via Ly 01-04-2015 patient visit [facility] ([id number]) End: 01-04-2015 Start: Emergency department LEELA DARRYL DO [facility] Via Ly 01-03-2015 patient visit [facility] ([id number]) End: 01-03-2015 Start: Patient encounter ALBA SMITH MD [facility] Via [facility] 08-13-2014 procedure [facility] ([id number]) Start: Patient encounter ALEJANDRA BONDS MD [facility] Via Ly 06-25-2014 [facility] ([id number]) End: 06-25-2014 Pre-procedural ALEJANDRA BONDS MD [facility] Via [facility] examination ([id number]) Encounter for [facility] adult medical Other Phone: [facility] examination without [place] ([id number]) abnormal findings Medical Equipment The data below is from unstructured sourcesNo Medical Equipment Information available Goals Date Patient Goal Desired Activity/St ate Immunizations The data below is from unstructured sourcesNo immunization records. No Known Immunizations No Known Immunizations No Known Immunizations No Known Immunizations No Known Immunizations No Known Immunizations No Known Immunizations No Known Immunizations No Known Immunizations No Known ImmunizationsNo Immunization Information AvailableNo Immunization Information Available No Known Immunizations No Known Immunizations Interventions No Information Medications Current Medications Medication Drug Dates Sig Sig (Original) Class(es) (Normalized) Laxative (3 sources) Laxative Active predniSONE 20 mg oral Start: tablet 03-10-2018 (1 source) End: 03-15-2018 Completed/Discontinued Medications Medication Drug Dates Sig Sig (Original) Class(es) (Normalized) benzonatate 200 mg oral Non-narcot Start: Benzon atate Discontinued 1 ORAL Three capsule ic 01-04-2015 Times A Day as needed for Cough 13 January (1 source) Antitussiv 2014 12:35am (One-Time) e End: 01-04-2015 cephalexin 500 mg oral Cephalospo Start: Cephale christine Discontinued 500 ORAL Twice A capsule rin 05-22-2019 Day 12 6 Decemb er 2018 10:02pm (1 source) Antibacter May 27, 2019 ial End: 05-27-2019 naproxen 500 mg oral Nonsteroid Start: Naproxen Discontinued 500 ORAL Twice A tablet al 05-22-2019 Day 14 7 Decemb er 2018 10:02pm (1 source) Anti-infla May 28, 2019 mmatory End: Drug 05-28-2019 Sleeping Pill End: Sleeping Pill Disco ntinued NOT (1 source) 06-23-2014 APPLICABLE June 23, 2014 Payers Date Payer Normalized Payer [id number] Plan of Treatment Date Care Activity Detail Author Start: [facility] 03-10-2018 Borrelia burgdorferi Ab [facility] [Interpretation[facility] ([id number]) Borrelia burgdorferi Ab [facility] [Units/volume] in Hospital (36492) Unspecified specimen Creatine kinase [Enzymatic [facility] activity/volume] [facility] (55642) Plasma Ehrlichia chaffeensis IgG Ab [facility] [Presence] in [facility] ([id number]) Ehrlichia chaffeensis IgM Ab [facility] [Presence] in [facility] ([id number]) Francisella tularensis Ab [facility] [Presence[facility] (43892) Microagglutination Rickettsia rickettsii IgG Ab [facility] [Units/volume] in [facility] (21807) Rickettsia rickettsii IgG [facility] and IgM panel - [facility] (18369) Patient Education [facility] Via [facility] (38320) Patient referral Taney [facility] (28042) Problems Active Problems Problem Problem Date Last Documented Episodic/Chr Provider Classificati Recorded Date onic on Abdominal Inguinal hernia, without mention of Episodic ALEJANDRA hernia obstruction or gangrene, unilateral VAMSHI FRITZ or unspecified (not specified as (6 sources) recurrent) Alcohol-rela Alcohol abuse, unspecified ; Chronic LEELA DARRYL DO kelsea Translations: [Persistent a lcohol disorders abuse ] (4 sources) Allergic Allergy status to penicillin Episodic KIM ARSLAN reactions (2 sources) Biliary Calculus of gallbladder without Episodic ALBA LUIS tract mention of cholecystitis, without M D disease mention of obstruction (3 sources) Chronic Emphysema, unspecified ; Chronic TIT US ARSLAN obstructive Translations: [Panacinar em physema] pulmonary disease and bronchiectas is (5 sources) Diseases of Leukocytosis ; Translations: [Other Chronic ABEBA WEST white blood elevated white blood cell count] Ot her Phone: cells [phone] (2 sources) 3 Esophageal Gastro-esophageal reflux disease Chronic SCOTT disorders without esophagitis MARISCAL DO (4 sources) Genitourinar Hematuria, unspecified ; Episodic TREVA LUIS y symptoms Translations: [Hematuria, and unspecified] ill-defined conditions (9 sources) Hyperplasia Benign prostatic hyperplasia with Chronic KIM ARSLAN of prostate lower urinary tract symptom s ; (3 sources) Translations: [Prostatism] Immunization Screening examination for other Episodic ALEJANDRA s and specified bacterial and spirochetal VAMSHI FRITZ screening diseases for infectious disease (3 sources) Other Myalgia, other site Episodic KIM WE LLER connective tissue disease (2 sources) Other Myalgia, unspecified site Episodic TI TUS ARSLAN connective tissue disease (2 sources) Other ear Other specified hearing loss, right Chronic RAYRAY and sense ear EGRMAN FRITZ organ disorders (2 sources) 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, unspecified GERMAN FRITZ and degenerative nervous system conditions (2 sources) Other lower Cough Episodic LEELA DARRYL DO respiratory disease (6 sources) Other Other specified disorders of brain Chronic RAYRAY nervous GERMAN FRITZ system disorders (2 sources) Substance-re Tobacco use disorder ; Chronic LEELA DARRYL DO lated Translations: [Nicotine dep endence, disorders cigarettes, uncomplicated] (5 sources) Urinary Urinary tract infection, site not Episodic KIM ARSLAN tract specified ; Translations: [ Urinary infections tract infectious disease] (3 sources) Past or Other Problems Problem Problem Date Last Documented Episodic/Chr Provider Classificati Recorded Date onic on Conditions Dizziness and giddiness ; Episodic [place] LLIAM JENNA associated Translations: [ - Dizziness on Othe r Phone: with standing R42] [phone] dizziness or 3 vertigo (3 sources) Other Dupuytren contracture of right palm Episodic ABEBA WEST connective ; Translations: [Dupuytren's Other Phone: tissue contracture of right hand] [phone] disease 3 (4 sources) Other Muscle pain Episodic [facility] tissue Work Phone: disease [phone] (1 source) 73 Other lower Chronic cough Episodic [facility] disease Work Phone: (1 source) [phone] Otitis media Unspecified nonsuppurative otitis Episodic ABEBA WEST and related media, right ear ; Translations: [ Other Phone: conditions - Right otitis media with effusion [phone] (2 sources) H65.91] 3 Residual Pain, unspecified ; Translations: [ Episodic ABEBA WEST codes; - Body aches R52] Other Phone: unclassified [phone] (2 sources) 3 Procedures Date Procedure Procedure Detail Performing Cl inician Start: Assay of thyroid ABEBA WEST 03-10-2018 stimulating Other Phone: hormone tsh Start: Blood count ABEBA WEST 03-10-2018 complete auto&auto Other difrntl wbc Start: Collection venous ABEBA WEST 03-10-2018 blood venipuncture Other Start: Comprehensive ABEBA WEST 03-10-2018 metabolic panel Other Phone: Start: Injection ABEBA WEST 02-11-2018 intralesional up Other Phone: to & includ 7 lesions Results Test Name Value Interpreta Reference Facilit Date tion Range y Time laboratory on 2019-06-04 B. burgdorferi 18kD NON-REACTIVE Normal Communi IgG IB Ql (S) [facility] (09992) B. burgdorferi 23kD NON-REACTIVE Normal Communi IgG IB Ql (S) [facility] (84099) B. burgdorferi 23kD NON-REACTIVE Normal Communi IgM IB Ql (S) [facility] (82379) B. burgdorferi 28kD NON-REACTIVE Normal Communi IgG IB Ql (S) [facility] (36639) B. burgdorferi 30kD NON-REACTIVE Normal Communi IgG IB Ql (S) [facility] (05834) B. burgdorferi 39kD NON-REACTIVE Normal Communi IgG IB Ql (S) [facility] (86333) B. burgdorferi 39kD NON-REACTIVE Normal Communi IgM IB Ql (S) [facility] (99879) B. burgdorferi 41kD REACTIVE Abnormal Communi IgG IB Ql (S) [facility] (16333) B. burgdorferi 41kD NON-REACTIVE Normal Communi IgM IB Ql (S) [facility] (83768) B. burgdorferi 45kD NON-REACTIVE Normal Communi IgG IB Ql (S) [facility] (71806) B. burgdorferi 58kD NON-REACTIVE Normal Communi IgG IB Ql (S) [facility] (91891) B. burgdorferi 66kD NON-REACTIVE Normal Communi IgG IB Ql (S) [facility] (54639) B. burgdorferi 93kD NON-REACTIVE Normal Communi IgG IB Ql (S) ty [facility] (60603) B. burgdorferi Ab IA 2.13 High index Commu ni Ql (S) ty [facility] (84334) B. burgdorferi IgG Negative Normal NEGATIVE Communi IB Ql (S) ty [facility] (99877) B. burgdorferi IgM Negative Normal NEGATIVE Communi IB Ql (S) ty [facility] (07579) E. chaffeensis Invalid Communi IgG+IgM Ql Interpreta ty tion Code [facility] (23789) R. spotted fever 1:64 High <1:64 Communi group IgG IF (S) titer ty [Titer] [facility] (73944) R. spotted fever Communi group IgG Ql (S) ty [facility] (16198) R. spotted fever Communi group IgM Ql (S) ty [facility] (13875) laboratory on 2019-04-15 Basophils (Bld) 0.14 10*3/uL Normal 0-200 Communi [#/Vol] cells/uL [facility] (87004) Basophils/100 WBC 2.0 % Normal % Communi (Bld) [facility] (11789) Eosinophils (Bld) 0.28 10*3/uL Normal 15-500 Communi [#/Vol] cells/uL [facility] (56448) Eosinophils/100 WBC 4.0 % Normal % Commun i (Bld) [facility] (39375) Erythrocyte 12.7 % Normal 11.0-15.0 Communi distribution width % ty (RBC) [Ratio] [facility] (03485) Hematocrit (Bld) 50.9 % High 38.5-50.0 Communi [Volume fraction] % ty [facility] (79043) Hemoglobin (Bld) 17.5 g/dL High 13.2-17.1 Communi [Mass/Vol] g/dL [facility] (59577) Lymphocytes (Bld) 1.771 10*3/uL Normal 850-3900 Commun i [#/Vol] cells/uL [facility] (82655) Lymphocytes/100 WBC 25.3 % Normal % Commun i (Bld) [facility] (92255) MCH (RBC) [Entitic 30.9 pg Normal 27.0-33.0 Communi mass] pg [facility] (01739) MCHC (RBC) 34.4 g/dL Normal 32.0-36.0 Communi [Mass/Vol] g/dL [facility] (26110) MCV (RBC) [Entitic 89.9 fL Normal 80.0-100.0 Communi vol] fL [facility] (86389) Monocytes (Bld) 0.651 10*3/uL Normal 200-950 Communi [#/Vol] cells/uL [facility] (25687) Monocytes/100 WBC 9.3 % Normal % Communi (Bld) [facility] (51698) Neutrophils (Bld) 4.158 10*3/uL Normal 7751-6169 Commun i [#/Vol] cells/uL [facility] (05917) Neutrophils/100 WBC 59.4 % Normal % Commun i (Bld) [facility] (86253) Platelet mean volume 11.5 fL Normal 7.5-12.5 Commu ni (Bld) [Entitic vol] fL [facility] (66202) Platelets (Bld) 213 10*3/uL Normal 140-400 Communi [#/Vol] Thousand/u ty L [facility] (68522) RBC (Bld) [#/Vol] 5.66 10*6/uL Normal 4.20-5.80 Communi Million/uL [facility] (84473) WBC (Bld) [#/Vol] 7.0 10*3/uL Normal 3.8-10.8 Communi Thousand/u ty L [facility] (70832) not yet categorized on 2019-02-19 BLO 1+ Invalid Communi Interpreta ty tion Code [facility] (96359) KET 04/05~clear~yellow~none~negative~negative~neg Invalid Communi ative Interpreta ty tion Code [facility] (32535) AL Negative Invalid Communi Interpreta ty tion Code [facility] (49598) Lot # [id number] Invalid Communi Interpreta ty tion Code [facility] (47042) SG 1.010 Invalid Communi Interpreta ty tion Code [facility] (37302) URO 0.2 Invalid Communi Interpreta ty tion Code [facility] (80519) laboratory on 2019-02-19 Albumin [Mass/Vol] 3.5 g/dL Low 3.6-5.1 Communi g/dL ty [facility] (34441) Albumin/Globulin 1.2 {ratio} Normal 1.0-2.5 Communi [Mass ratio] (calc) ty [facility] (28646) ALP [Catalytic 56 U/L Normal 40-115 U/L Communi activity/Vol] ty [facility] (65018) ALT [Catalytic 46 U/L Normal 9-46 U/L Communi activity/Vol] ty [facility] (18713) AST [Catalytic 27 U/L Normal 10-35 U/L Communi activity/Vol] [facility] (58142) Basophils (Bld) 0.048 10*3/uL Normal 0-200 Communi [#/Vol] cells/uL ty [facility] (76853) Basophils/100 WBC 0.4 % Normal % Communi (Bld) [facility] (77826) Bilirubin [Mass/Vol] 1.0 mg/dL Normal 0.2-1.2 Commu ni mg/dL [facility] (03306) Calcium [Mass/Vol] 9.5 mg/dL Normal 8.6-10.3 Communi mg/dL [facility] (07154) Chloride [Moles/Vol] 102 mmol/L Normal 98-110 Commu ni mmol/L ty [facility] (79419) CO2 [Moles/Vol] 27 mmol/L Normal 20-32 Communi mmol/L ty [facility] (11707) Creatinine 0.92 mg/dL Normal 0.70-1.33 Communi [Mass/Vol] mg/dL ty [facility] (45592) Eosinophils (Bld) 0.012 10*3/uL Low 15-500 Commun i [#/Vol] cells/uL ty [facility] (18854) Eosinophils/100 WBC 0.1 % Normal % Commun i (Bld) ty [facility] (36072) Erythrocyte 12.7 % Normal 11.0-15.0 Communi distribution width % ty (RBC) [Ratio] [facility] (65518) GFR/1.73 sq 105 mL/min/{1.73_m2} Normal > OR = 60 Commu ni M.predicted among mL/min/1.7 ty blacks MDRD 3m2 Health (S/P/Bld) [Vol Center rate/Area] [facility] (39992) GFR/1.73 sq 91 mL/min/{1.73_m2} Normal > OR = 60 Commun i M.predicted MDRD mL/min/1.7 ty (S/P/Bld) [Vol 3m2 Health rate/Area] [facility] (73997) Globulin (S) 3.0 g/dL Normal 1.9-3.7 Communi [Mass/Vol] g/dL ty (calc) [facility] (18141) Glucose [Mass/Vol] 110 mg/dL High 65-99 Communi mg/dL ty [facility] (06936) Hematocrit (Bld) 53.1 % High 38.5-50.0 Communi [Volume fraction] % ty [facility] (87933) Hemoglobin (Bld) 18.3 g/dL High 13.2-17.1 Communi [Mass/Vol] g/dL ty [facility] (89307) Lymphocytes (Bld) 0.714 10*3/uL Low 850-3900 Commun i [#/Vol] cells/uL [facility] (02238) Lymphocytes/100 WBC 5.9 % Normal % Commun i (Bld) [facility] (68426) MCH (RBC) [Entitic 30.9 pg Normal 27.0-33.0 Communi mass] pg [facility] (21275) MCHC (RBC) 34.5 g/dL Normal 32.0-36.0 Communi [Mass/Vol] g/dL [facility] (53345) MCV (RBC) [Entitic 89.5 fL Normal 80.0-100.0 Communi vol] fL [facility] (34879) Monocytes (Bld) 0.29 10*3/uL Normal 200-950 Communi [#/Vol] cells/uL [facility] (16266) Monocytes/100 WBC 2.4 % Normal % Communi (Bld) [facility] (59850) Neutrophils (Bld) 11.035 10*3/uL High 5084-4964 Commu ni [#/Vol] cells/uL [facility] (90716) Neutrophils/100 WBC 91.2 % Normal % Commun i (Bld) [facility] (90416) pH (Bld) 5.5 [pH] Invalid Communi Interpreta ty tion Code [facility] (07960) Platelet mean volume 10.5 fL Normal 7.5-12.5 Commu ni (Bld) [Entitic vol] fL [facility] (86267) Platelets (Bld) 306 10*3/uL Normal 140-400 Communi [#/Vol] Thousand/u ty L [facility] (52352) Potassium 4.5 mmol/L Normal 3.5-5.3 Communi [Moles/Vol] mmol/L [facility] (19213) Prostate specific Ag 2.1 ng/mL Normal < OR = 4.0 Commu ni [Mass/Vol] ng/mL ty [facility] (28859) Protein (U) 3+ Invalid Communi [Mass/Vol] Interpreta ty [facility] (36768) Protein [Mass/Vol] 6.5 g/dL Normal 6.1-8.1 Communi g/dL ty [facility] (44725) RBC (Bld) [#/Vol] 5.93 10*6/uL High 4.20-5.80 Communi Million/uL ty [facility] (49203) Sodium [Moles/Vol] 137 mmol/L Normal 135-146 Communi mmol/L ty [facility] (54382) Urea nitrogen 12 mg/dL Normal 7-25 mg/dL Communi [Mass/Vol] ty [facility] (25956) Urea NOT APPLICABLE Invalid 6-22 Communi nitrogen/Creatinine Interpreta (calc) ty [facility]27882[facility] WBC (Bld) [#/Vol] 12.1 10*3/uL High 3.8-10.8 Communi Thousand/u ty L [facility] (63591) laboratory on 2017-08-01 Albumin [Mass/Vol] 2.6 g/dL Low 3.6-5.1 Not g/dL [facility] (85182) Albumin/Globulin 0.8 {ratio} Low 1.0-2.5 Not [Mass ratio] (calc) [facility] (55177) ALP [Catalytic 68 U/L Normal 40-115 U/L Not activity/Vol] [facility] (11132) ALT [Catalytic 19 U/L Normal 9-46 U/L Not activity/Vol] [facility] (40906) AST [Catalytic 24 U/L Normal 10-35 U/L Not activity/Vol] [facility] (33364) Basophils (Bld) 0.08 10*3/uL Normal 0-200 Not [#/Vol] cells/uL [facility] (94763) Basophils/100 WBC 1.7 % Normal % Not (Bld) [facility] (37541) Bilirubin [Mass/Vol] 0.8 mg/dL Normal 0.2-1.2 Not mg/dL [facility] (78401) Calcium [Mass/Vol] 8.7 mg/dL Normal 8.6-10.3 Not mg/dL [facility] (36955) Chloride [Moles/Vol] 101 mmol/L Normal 98-110 Not mmol/L [facility] (38852) Cholesterol 190 mg/dL Normal <200 mg/dL [Mass/Vol] Cholesterol in HDL 59 mg/dL Normal >40 mg/dL [Mass/Vol] Cholesterol in LDL 115 mg/dL High mg/dL [Mass/Vol] (calc) Cholesterol non HDL 131 mg/dL High <130 mg/dL [Mass/Vol] (calc) Cholesterol.total/Ch 3.2 {ratio} Normal <5.0 olesterol in HDL (calc) [Mass ratio] CO2 [Moles/Vol] 25 mmol/L Normal 20-31 Not mmol/L [facility] (59587) Creatinine 1.18 mg/dL Normal 0.70-1.33 Not [Mass/Vol] mg/dL [facility] (68720) Eosinophils (Bld) 0.207 10*3/uL Normal 15-500 Not [#/Vol] cells/uL [facility] (46690) Eosinophils/100 WBC 4.4 % Normal % Not (Bld) [facility] (21359) Erythrocyte 12.3 % Normal 11.0-15.0 Not distribution width % Availab (RBC) [Ratio] le (64334) GFR/1.73 sq 79 mL/min/{1.73_m2} Normal > OR = 60 Not M.predicted among mL/min/1.7 Availab blacks MDRD 3m2 le (S/P/Bld) [Vol (57588) rate/Area] GFR/1.73 sq 68 mL/min/{1.73_m2} Normal > OR = 60 Not M.predicted MDRD mL/min/1.7 Avail[facility] (S/P/Bld) [Vol 3m2 le rate/Area] (36767) Globulin (S) 3.1 g/dL Normal 1.9-3.7 Not [Mass/Vol] g/dL Availab (calc) le (01663) Glucose [Mass/Vol] 78 mg/dL Normal 65-99 Not mg/dL [facility] (34373) Hematocrit (Bld) 51.3 % High 38.5-50.0 Not [Volume fraction] % [facility] (29737) Hemoglobin (Bld) 17.7 g/dL High 13.2-17.1 Not [Mass/Vol] g/dL [facility] (63499) Lymphocytes (Bld) 1.443 10*3/uL Normal 850-3900 Not [#/Vol] cells/uL [facility] (64609) Lymphocytes/100 WBC 30.7 % Normal % Not (Bld) [facility] (01618) MCH (RBC) [Entitic 30.3 pg Normal 27.0-33.0 Not mass] pg [facility] (27236) MCHC (RBC) 34.5 g/dL Normal 32.0-36.0 Not [Mass/Vol] g/dL [facility] (35475) MCV (RBC) [Entitic 87.8 fL Normal 80.0-100.0 Not vol] fL [facility] le (78070) Monocytes (Bld) 0.508 10*3/uL Normal 200-950 Not [#/Vol] cells/uL [facility] (00982) Monocytes/100 WBC 10.8 % Normal % Not (Bld) [facility] (76322) Neutrophils (Bld) 2.463 10*3/uL Normal 8785-1733 Not [#/Vol] cells/uL [facility] (69798) Neutrophils/100 WBC 52.4 % Normal % Not (Bld) [facility] (02381) Platelet mean volume 11.1 fL Normal 7.5-12.5 Not (Bld) [Entitic vol] fL [facility] (53510) Platelets (Bld) 185 10*3/uL Normal 140-400 Not [#/Vol] Thousand/u Availab L le (14712) Potassium 3.9 mmol/L Normal 3.5-5.3 Not [Moles/Vol] mmol/L [facility] (78700) Protein [Mass/Vol] 5.7 g/dL Low 6.1-8.1 Not g/dL [facility] (44030) RBC (Bld) [#/Vol] 5.84 10*6/uL High 4.20-5.80 Not Million/uL [facility] (83946) Sodium [Moles/Vol] 134 mmol/L Low 135-146 Not mmol/L [facility] (32818) Triglyceride 72 mg/dL Normal <150 mg/dL [Mass/Vol] TSH Qn 0.66 m[IU]/L Normal 0.40-4.50 Not mIU/L [facility] (67391) Urea nitrogen 10 mg/dL Normal 7-25 mg/dL Not [Mass/Vol] [facility] (44222) Urea NOT APPLICABLE Invalid 6-22 Not nitrogen/Creatinine Interpreta (calc) Availab [Mass ratio] tion Code le (53077) WBC (Bld) [#/Vol] 4.7 10*3/uL Normal 3.8-10.8 Not Thousand/u Availab L le (07712) Social History Date Type Detail Facility Start: Tobacco smoking status NHIS Smokes tobacco jadyn ly [facility] 05-21-2019 (finding) [facility] ([id number]) Start: Current Everyday Smoker [facility] 05-21-2019 [facility] ([id number]) Start: Cigarettes [facility] 05-21-2019 [facility] ([id number]) Start: No [facility] 05-21-2019 [facility] ([id number]) Start: Denies [facility] 05-21-2019 [facility] ([id number]) Start: Regular Use [facility] 01-04-2015 [facility] ([id number]) Start: N - DENIES [facility] 01-04-2015 [facility] ([id number]) Start: Sex Assigned At Male [facility] 1960 [facility] ([id number]) Vital Signs Date Time Vital Sign Value Performing Clinician Facil ity 08-18-2018 Body height 182.88 cm [facility] 12:000500 Other Phone: [facility] [place] ([id number]) 08-18-2018 Body mass index 24.27 kg/m2 [facility] 12:000500 (BMI) [Ratio] Other Phone: [facility] [place] ([id number]) 08-18-2018 Body temperature 98.4 [degF] [facility] 12:00-0500 Other Phone: [facility] [place] ([id number]) 08-18-2018 Body weight 81.19 kg [facility] 12:00-0500 Other Phone: [facility] [place] ([id number]) 08-18-2018 SaO2% (BldA) [Mass 97 % [facility] [email or web address] 12:00-0500 fraction] Other Phone: Center [facility] [place] ([id number]) 03-10-2018 Body height 182.88 cm [facility] 18:00-0400 Other Phone: [facility] [place] ([id number]) 03-10-2018 Body mass index 23.87 kg/m2 [facility] [email or web address] 18:00-0400 (BMI) [Ratio] Other Phone: [facility] [place] ([id number]) 03-10-2018 Body temperature 98.7 [degF] [facility] [email or web address] 18:00-0400 Other Phone: [facility] [place] ([id number]) 03-10-2018 Body weight 79.83 kg [facility] 18:00-0400 Other Phone: [facility] [phone] [place] [address] ([id number]) 02-11-2018 Body height 182.88 cm [facility] 15:40-0400 Other Phone: [facility] [place] ([id number]) 02-11-2018 Body mass index 23.76 kg/m2 [facility] [email or web address] 15:40-0400 (BMI) [Ratio] Other Phone: [facility] [place] ([id number]) 02-11-2018 Body temperature 98.8 [degF] [facility] [email or web address] 15:40-0400 Other Phone: [facility] [place] ([id number]) 02-11-2018 Body weight 79.47 kg [facility] 15:40-0400 Other Phone: [facility] [phone] [place] [address] ([id number]) 02-11-2018 SaO2% (BldA) [Mass 96 % [facility] [email or web address] 15:40-0400 fraction] Other Phone: [facility] [place] ([id number]) 01-29-2018 Body height 182.88 cm [facility] 16:20-0400 Other Phone: [facility] [place] ([id number]) 01-29-2018 Body mass index 24.37 kg/m2 [facility] 16:20-0400 (BMI) [Ratio] Other Phone: [facility] [place] ([id number]) 01-29-2018 Body temperature 98.4 [degF] [facility] 16:20-0400 Other Phone: [facility] [place] ([id number]) 01-29-2018 Body weight 81.51 kg [facility] 16:20-0400 Other Phone: [facility] [place] ([id number]) Functional Status The data below is from unstructured sourcesNo functional status results.No Functional Status information availableNo Functional Status information available Mental Status The data below is from unstructured sourcesNo Mental Status Information Available Evaluation note Note Date & Note Facility Type Evaluation No Assessments Information Available [facility] ([id number]) History general Narrative - Reported Note Date & Note Facility Type History [facility] ([id number]) Reported Advance Directives Directive Response Recor ded Date/Time Advance Directives No 6:30am Health Care Power of Bench Press Operator No 06/25/14 6:30am Organ Donor No 06/25/14 6:30am Resuscitation Status Full Code 06/25/14 6:30am Advance Directive Response Recorded Date/Time Advance Directives No Mynor 2018 8:37pm Health Care Power of Bench Press Operator No May 21, 2019 8:37pm Organ Donor No May 21, 2019 8:37pm Resuscitation Status Full Code May 21, 2019 8:37pm Discharge Instructions No hospital discharge instructions. Chief Complaint and Reason for Visit Chief Complaint General Problems/Andrew n Reason for Visit [id number] Additional Source Comments This clinical document has been generated using [employer] software that has been certified by the Office of the National Coordinator for Health Information Technology (ONC 15.99.04.3023.Diam.31.00.0.978428) and the National Committee for Agronomist (NCQA, as an eMeasure certified technology). FOR RECORDS PERTAINING TO PATIENTS WHO ARE OR HAVE BEEN ENROLLED IN A CHEMICAL D EPENDENCY/SUBSTANCE ABUSE PROGRAM, SOME INFORMATION MAY BE OMITTED. This clinica l summary was aggregated from multiple sources. Caution should be exercised in using it in the provision of clinical care. This summary normalizes information from multiple sources, and as a consequence, information in this document may ma terially change the coding, format and clinical context of patient data. In viky tion, data may be omitted in some cases. CLINICAL DECISIONS SHOULD BE BASED ON T HE PRIMARY CLINICAL RECORDS. [employer] [facility]. provides no warranty or guara ntee of the accuracy or completeness of information in this document.The followi information is based on time limited clinical information UNRECOGNIZED CONTENT PROVIDED BELOW FOR UNRECOGNIZED SECTION REASON FOR VISIT Muscle Spasms Pt states he is here for medication refills, also has a spot on R hand that is growing and making pinky sore, states has gotten a "shot" in it before Humberto Galaviz, Dupuytren's contractmisbah -Jhonny [facility] BASILIO Amezcua MA
--- OUTSIDE RECORDS SUMMARY | 2020-01-03 11:34 | XMS REPORT ---
Author Author Chinmay WEST Organization [facility] Address [address] [place] [address] Care Team Providers Care Director Career Name Role Phone ABEBA WEST Unavailable PROBLEMS Type Condition ICD9-CM Code [id number] Code Onset Dates Condition S tatus SNOMED Code Problem Dupuytren's contracture of right hand M72.0 Active 26338039873042079 Problem Primary insomnia F51.01 Active 397 2004 Problem Dupuytren contracture M72.0 Active 286574329 Problem Other chronic pain G89.29 Active 8 5489185 Problem Hypertension, benign I10 Active 10328800 ALLERGIES No Information ENCOUNTERS Encounter Location Date Diagnosis [place] [address] [place] [id number] [place] [phone] Feb, [place] [address] [phone] Jan, Dupuytren's contracture of r ight hand M72.0 [place] [address] [place] [id number] [place] [phone] Jan, Dupuytren's contracture of r ight hand M72.0 ; Hypertension, benign I10 and Primary insomnia F51.01 [facility] [address] [place] [id number] [place] [phone] Dec, Primary insomnia F51.01 [place] [address] [place] [id number] [place] [phone] Sep, Frontal headache R51 [place] [address] [place] [id number] [place] [phone] Aug, [place] [address] [phone] Aug, Dupuytren's contracture M72. 0 and Ganglion cyst of volar aspect of right wrist M67.431 [facility] [address] [facility] [id number] [address] [place] [phone] 15 Jul, 2017 Primary insomnia F51.01 ; Hy pertension, benign I10 ; Family history of early CAD Z82.49 ; Low back pain M54.5 ; Family history of diabetes mellitus Z83.3 ; Other chronic pain G89.29 ; Dupuytren contracture M72.0 and Ganglion of right wrist M67.431 [facility] [address] [facility] [id number] [address] [place] [phone] 14 Jul, 2017 Primary insomnia F51.01 ; Lo w back pain M54.5 ; Other chronic pain G89.29 ; Dupuytren contracture M72.0 ; Ganglion of right wrist M67.431 ; Hypertension, benign I10 ; Family history of early CAD Z82.49 and Family history of diabetes mellitus Z83.3 IMMUNIZATIONS No Known Immunizations SOCIAL HISTORY Never Assessed REASON FOR VISIT medication refill PLAN OF CARE VITAL SIGNS MEDICATIONS Medication Instructions Dosage Frequency Start Date End Date Duration S tatus Cyclobenzaprine HCl 10 mg Orally 2 times a day 1 tablet as needed 12h Active RESULTS No Results PROCEDURES No Known procedures INSTRUCTIONS MEDICATIONS ADMINISTERED No Known Medications MEDICAL (GENERAL) HISTORY Type Description Date Medical History heartburn Medical History back pain Medical History meningitis at age 6 months Medical History emphysema Surgical History izzy inguinal hernia repair Surgical History izzy catarcts Hospitalization History surgeries
--- OUTSIDE RECORDS SUMMARY | 2020-01-03 11:34 | XMS REPORT ---
Author Author Chinmay WEST Organization [facility] Address [address] [place] [address] Care Team Providers Care [employer] Name Role Phone ABEBA WEST Unavailable PROBLEMS Type Condition ICD9-CM Code GOH46-MW Code Onset Dates Condition S tatus SNOMED Code Problem Dupuytren's contracture of right hand M72.0 Active [id number] Problem Primary insomnia F51.01 Active 397 2004 Problem Dupuytren contracture M72.0 Active 641598934 Problem Other chronic pain G89.29 Active 8 5211582 Problem Hypertension, benign I10 Active 31246734 ALLERGIES Substance Reaction Event Type Date Status Penicillin V Potassium rash Drug Allergy Jan, Activ e ENCOUNTERS Encounter Location Date Diagnosis [place] [address] [facility] [id number] [address] [place] [phone] Feb, Dizziness on standing R42 [place] [address] [facility] [id number] [address] [place] [phone] Jan, Dupuytren's contracture of r ight hand M72.0 [place] [address] [facility] [id number] [address] [place] [phone] Jan, Dupuytren's contracture of r ight hand M72.0 ; Hypertension, benign I10 and Primary insomnia F51.01 [facility] [address] [facility] [id number] [address] [place] [phone] Dec, Primary insomnia F51.01 [place] [address] [facility] [id number] [address] [place] [phone] Sep, Frontal headache R51 [place] [address] [facility] [id number] [address] [place] [phone] Aug, [place] [address] [place] [id number] [address] [place] [phone] 13 Aug, 2017 Dupuytren's contracture M72. 0 and Ganglion cyst of volar aspect of right wrist M67.431 [place] [address] [facility] [id number] [address] [place] [phone] 15 Jul, 2017 Primary insomnia F51.01 ; Hy pertension, benign I10 ; Family history of early CAD Z82.49 ; Low back pain M54.5 ; Family history of diabetes mellitus Z83.3 ; Other chronic pain G89.29 ; Dupuytren contracture M72.0 and Ganglion of right wrist M67.431 [place] [address] [facility] [id number] [address] [place] [phone] 14 Jul, 2017 Primary insomnia F51.01 ; Lo w back pain M54.5 ; Other chronic pain G89.29 ; Dupuytren contracture M72.0 ; Ganglion of right wrist M67.431 ; Hypertension, benign I10 ; Family history of early CAD Z82.49 and Family history of diabetes mellitus Z83.3 IMMUNIZATIONS No Known Immunizations SOCIAL HISTORY Never Assessed REASON FOR VISIT Injection, Dupuytren's contracture -Jhonny BAILEY PLAN OF CARE Activity Details Follow Up 4 Weeks Reason:duyputrens in jection Future/Pending Procedure INJECTION INTO SKIN LESIONS VITAL SIGNS Height 72 in 2018-02-11 Weight 175.2 lbs 2018-02-11 Temperature 98.8 degrees Fahrenheit 2018-02-11 Heart Rate 68 bpm 2018-02-11 Respiratory Rate 18 2018-02-11 Oximetry 96 % 2018-02-11 BMI 23.76 kg/m2 2018-02-11 Blood pressure systolic 132 mmHg 2018-02-11 Blood pressure diastolic 80 mmHg 2018-02-11 MEDICATIONS Medication Instructions Dosage Frequency Start Date End Date Duration S tatus Trazodone HCl 50 mg Orally at bedtime 2 tablets Active Hydrocodone-Acetaminophen 5-325 MG Orally every 4 hours as n eeded 1 tablet as needed Jan, Active Laxative Active Famotidine 20 mg Orally twice a day as needed 1 tablet Active Diclofenac Sodium 50 mg Orally Twice a day as needed 1 tablet wi th food or milk Active Cyclobenzaprine HCl 10 mg Orally 2 times a day 1 tablet as needed 12h Active RESULTS No Results PROCEDURES Procedure Date Ordered Result Body Site INJECTION INTO SKIN LESIONS Feb 11, 2018 INSTRUCTIONS MEDICATIONS ADMINISTERED No Known Medications MEDICAL (GENERAL) HISTORY Type Description Date Medical History heartburn Medical History back pain Medical History meningitis at age 6 months Medical History emphysema Surgical History izzy inguinal hernia repair Surgical History izzy catarcts Hospitalization History surgeries
[2020-01-03 11:35] VITALS: BP 162/103
--- OUTSIDE RECORDS SUMMARY | 2020-01-03 11:35 | XMS REPORT | Continuity of Care Document ---
Author Organization Unknown Address Unknown Phone Unavailable Allergies Active Description Code Type Severity Reaction Onset Reported/Identified Relationship to Patient Clinical Status Yes Penicillins [id number] Drug Aller gy Unknown N/A 06/25/2014 Yes penicillin [id number] Drug Allerg y Unknown N/A 01/03/2015 Medications There is no data. Problems Date Dx Coded Attending Type Code Diagnosis Diagnosed By 10/21/2011 Ot 882.0 OPEN WOUND OF HAND 10/21/2011 Ot E000.8 OTH ER EXTERNAL CAUSE STATUS 10/21/2011 Ot E849.0 ACC IDENT IN HOME 10/21/2011 Ot E920.4 ACC ID-OTHER HAND TOOLS 10/21/2011 Ot V06.1 [id number], COMBINED [ 06/25/2014 VAMSHI FRITZ, ALEJANDRA S Ot 550.90 UNILAT INGUINAL HERNIA 07/26/2014 VAMSHI FRITZ, ALEJANDRA S Ot 550.90 07/26/2014 VAMSHI FRITZ, ALEJANDRA S Ot V72.63 07/26/2014 VAMSHI FRITZ, ALEJANDRA S Ot V72.83 07/26/2014 VAMSHI FRITZ, ALEJANDRA S Ot V74.8 08/13/2014 VAMSHI FRITZ, ALEJANDRA S Ot 550.90 08/13/2014 VAMSHI FRITZ, ALEJANDRA S Ot V72.63 08/13/2014 VAMSHI FRITZ, ALEJANDRA S Ot V72.83 08/13/2014 VAMSHI FRITZ, ALEJANDRA S Ot V74.8 09/10/2014 Ot 574.20 09/10/2014 Ot 599.70 01/03/2015 VAMSHI FRITZ, ALEJANDRA S Ot 550.90 01/03/2015 VAMSHI FRITZ, ALEJANDRA S Ot V72.63 01/03/2015 VAMSHI FRITZ, ALEJANDRA S Ot V72.83 01/03/2015 VAMSHI FRITZ, ALEJANDRA S Ot V74.8 01/03/2015 Ot 574.20 01/03/2015 Ot 599.70 01/04/2015 LEELA ANDREWS DO Ot 305.00 ALCOHOL ABUSE-UNSPEC 01/04/2015 LEELA ANDREWS DO Ot 305.1 TOBACCO USE DISORDER 01/04/2015 LEELA ANDREWS DO Ot 786.2 COUGH 09/30/2015 SCOTT MARISCAL DO Ot M54 .5 LOW BACK PAIN 09/30/2015 SCOTT MARISCAL DO Ot R31 .9 HEMATURIA, UNSPECIFIED 10/07/2015 MARISCAL DO, SCOTT Chavarria Ot M54 .5 LOW BACK PAIN 10/07/2015 MARISCAL DO, SCOTT Chavarria Ot R31 .9 HEMATURIA, UNSPECIFIED 12/15/2015 VAMSHI FRITZ, ALEJANDRA Chowdhury Ot 550.90 UNILAT INGUINAL HERNIA 12/15/2015 VAMSHI FRITZ, LAEJANDRA Chowdhury Ot V72.63 PRE-PROCEDURAL LABORATORY EXAMINATION 12/15/2015 VAMSHI FRITZ, ALEJANDRA Chowdhury Ot V72.83 EXAM PRE-OPERATIVE NEC 12/15/2015 VAMSHI FRITZ, ALEJANDRA Chowdhury Ot V74.8 SCREEN-BACTERIAL DIS NEC 12/15/2015 Ot 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 12/15/2015 Ot 599.70 HEM ATURIA, UNSPECIFIED 12/15/2015 MARISCAL DO, SCOTT Chavarria Ot M54 .5 LOW BACK PAIN 12/15/2015 MARISCAL DO, SCOTT Chavarria Ot R31 .9 HEMATURIA, UNSPECIFIED 12/16/2015 MARISCAL DO, SCOTT Chavarria Ot K21 .9 GASTRO-ESOPHAGEAL REFLUX DISEASE WITHOUT 01/05/2016 MARISCAL DO, SCOTT Chavarria Ot K21 .9 GASTRO-ESOPHAGEAL REFLUX DISEASE WITHOUT 01/13/2016 MARISCAL DO, SCOTT Chavarria Ot K21 .9 GASTRO-ESOPHAGEAL REFLUX DISEASE WITHOUT 03/29/2018 MARISCAL DO, SCOTT Chavarria Ot K21 .9 GASTRO-ESOPHAGEAL REFLUX DISEASE WITHOUT 03/10/2019 VAMSHI FRITZ, ALEJANDRA Chowdhury Ot 550.90 UNILAT INGUINAL HERNIA 03/10/2019 VAMSHI FRITZ, ALEJANDRA Chowdhury Ot V72.63 PRE-PROCEDURAL LABORATORY EXAMINATION 03/10/2019 VAMSHI FRITZ, ALEJANDRA Chowdhury Ot V72.83 EXAM PRE-OPERATIVE NEC 03/10/2019 VAMSHI FRITZ, ALEJANDRA Chowdhury Ot V74.8 SCREEN-BACTERIAL DIS NEC 03/10/2019 Ot 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 03/10/2019 Ot 599.70 HEM ATURIA, UNSPECIFIED 03/10/2019 MARISCAL DO, SCOTT L Ot M54 .5 LOW BACK PAIN 03/10/2019 MARISCAL DO, SCOTT Chavarria Ot R31 .9 HEMATURIA, UNSPECIFIED 03/10/2019 MARISCAL DO, SCOTT L Ot K21 .9 GASTRO-ESOPHAGEAL REFLUX DISEASE WITHOUT 03/16/2019 VAMSHI FRITZ, ALEJANDRA S Ot 550.90 UNILAT INGUINAL HERNIA 03/16/2019 VAMSHI FRITZ, ALEJANDRA S Ot V72.63 PRE-PROCEDURAL LABORATORY EXAMINATION 03/16/2019 VAMSHI FRITZ, ALEJANDRA S Ot V72.83 EXAM PRE-OPERATIVE NEC 03/16/2019 VAMSHI FRITZ, ALEJANDRA S Ot V74.8 SCREEN-BACTERIAL DIS NEC 03/16/2019 Ot 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 03/16/2019 Ot 599.70 HEM ATURIA, UNSPECIFIED 03/16/2019 MARISCAL DO, SCOTT L Ot M54 .5 LOW BACK PAIN 03/16/2019 MARISCAL DO, SCOTT L Ot R31 .9 HEMATURIA, UNSPECIFIED 03/16/2019 MARISCAL DO, SCOTT L Ot K21 .9 GASTRO-ESOPHAGEAL REFLUX DISEASE WITHOUT 03/17/2019 VAMSHI FRITZ, ALEJANDRA S Ot 550.90 UNILAT INGUINAL HERNIA 03/17/2019 VAMSHI FRITZ, ALEJANDRA S Ot V72.63 PRE-PROCEDURAL LABORATORY EXAMINATION 03/17/2019 VAMSHI FRITZ, ALEJANDRA S Ot V72.83 EXAM PRE-OPERATIVE NEC 03/17/2019 VAMSHI FRITZ, ALEJANDRA S Ot V74.8 SCREEN-BACTERIAL DIS NEC 03/17/2019 Ot 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 03/17/2019 Ot 599.70 HEM ATURIA, UNSPECIFIED 03/17/2019 MARISCAL DO, SCOTT L Ot M54 .5 LOW BACK PAIN 03/17/2019 MARISCAL DO, SCOTT L Ot R31 .9 HEMATURIA, UNSPECIFIED 03/17/2019 MARISCAL DO, SCOTT L Ot K21 .9 GASTRO-ESOPHAGEAL REFLUX DISEASE WITHOUT 03/19/2019 GERMAN FRITZ, RAYRAY Leiva Ot G31 .9 DEGENERATIVE DISEASE OF NERVOUS SYSTEM, 03/19/2019 GERMAN FRITZ, RAYRAY Leiva Ot G93.89 OTHER SPECIFIED DISORDERS OF BRAIN 03/19/2019 GERMAN FRITZ, RAYRAY Leiva Ot H91.8X1 OTHER SPECIFIED HEARING LOSS, RIGHT EAR 05/21/2019 ARSLAN FRITZ, KIM Pinon Ot F17.210 NICOTINE DEPENDENCE, CIGARETTES, UNCOMPL 05/21/2019 KIM MCDANIELS MD Ot J43. 9 EMPHYSEMA, UNSPECIFIED 05/21/2019 KIM MCDANIELS MD Ot M79. 10 MYALGIA, UNSPECIFIED SITE 05/21/2019 KIM MCDANIELS MD Ot M79. 18 MYALGIA, OTHER SITE 05/21/2019 KIM MCDANIELS MD Ot N39. 0 URINARY TRACT INFECTION, SITE NOT SPECIF 05/21/2019 KIM MCDANIELS MD Ot N40. 1 BENIGN PROSTATIC HYPERPLASIA WITH LOWER 05/21/2019 KIM MCDANIELS MD J Ot Z88. 0 ALLERGY STATUS TO PENICILLIN 05/26/2019 KIM MCDANIELS MD J Ot F17.210 NICOTINE DEPENDENCE, CIGARETTES, UNCOMPL 05/26/2019 KIM MCDANIELS MD Ot J43. 9 EMPHYSEMA, UNSPECIFIED 05/26/2019 KIM MCDANIELS MD Ot M79. 10 MYALGIA, UNSPECIFIED SITE 05/26/2019 KIM MCDANIELS MD Ot M79. 18 MYALGIA, OTHER SITE 05/26/2019 KIM MCDANIELS MD Ot N39. 0 URINARY TRACT INFECTION, SITE NOT SPECIF 05/26/2019 KIM MCDANIELS MD Ot N40. 1 BENIGN PROSTATIC HYPERPLASIA WITH LOWER 05/26/2019 KIM MCDANIELS MD Ot Z88. 0 ALLERGY STATUS TO PENICILLIN 07/16/2019 RAYRAY PORTER MD Ot G31 .9 DEGENERATIVE DISEASE OF NERVOUS SYSTEM, 07/16/2019 RAYRAY PORTER MD Ot G93.89 OTHER SPECIFIED DISORDERS OF BRAIN 07/16/2019 RAYRAY PORTER MD Ot H91.8X1 OTHER SPECIFIED HEARING LOSS, RIGHT EAR Procedures There is no data. Results Test Result Range TSH - 08/01/17 09:31 TSH 0.66 mIU/L 0.40-4.50 TSH - 03/10/18 17:24 TSH 0.79 mIU/L 0.40-4.50 PSA - 02/19/19 14:42 PSA, TOTAL 2.1 ng/mL < OR = 4.0 [id number] - 03/17/19 07:58 Serum or plasma urea nitrogen measurement (mass/volume ) 7 mg/dL 7-18 Serum or plasma creatinine measurement (mass/volume) 0.83 mg/dL 0.60-1.30 Serum or plasma urea nitrogen/creatinine mass ratio 8 NRG Serum or plasma creatinine measurement w ith calculation of estimated glomerular filtration rate > NRG CBC - 04/15/19 14:20 WHITE BLOOD CELL COUNT 7.0 Thousand/uL 3 .8-10.8 RED BLOOD CELL COUNT 5.66 Million/uL 4.2 0-5.80 HEMOGLOBIN 17.5 g/dL 13.2-17.1 HEMATOCRIT 50.9 % 38.5-50.0 MCV 89.9 fL 80.0-100.0 MCH 30.9 pg 27.0-33.0 MCHC 34.4 g/dL 32.0-36.0 RDW 12.7 % 11.0-15.0 PLATELET COUNT 213 Thousand/uL 140-400 MPV 11.5 fL 7.5-12.5 ABSOLUTE NEUTROPHILS 4158 cells/uL 1500- 7800 ABSOLUTE LYMPHOCYTES 1771 cells/uL 850-3 900 ABSOLUTE MONOCYTES 651 cells/uL 200-950 ABSOLUTE EOSINOPHILS 280 cells/uL 15-500 ABSOLUTE BASOPHILS 140 cells/uL 0-200 NEUTROPHILS 59.4 % NRG LYMPHOCYTES 25.3 % NRG MONOCYTES 9.3 % NRG EOSINOPHILS 4.0 % NRG BASOPHILS 2.0 % NRG Urine drug screening test - 05/21/19 20: 40 Urine phencyclidine detection by screening method NEGATIVE NEGATIVE Urine benzodiazepines detection by screening method NEGATIVE NEGATIVE Urine cocaine detection NEGATIVE NEGATI VE Urine amphetamines detection by screening method N EGATIVE NEGATIVE Urine methamphetamine detection by screening method NEGATIVE NEGATIVE Urine cannabinoids detection by screening method N EGATIVE NEGATIVE Urine opiates detection by screening method NEGATI VE NEGATIVE Urine barbiturates detection NEGATIVE N EGATIVE Screening urine tricyclic antidepressants detection NEGATIVE NEGATIVE Urine methadone detection by screening method NEGA TIVE NEGATIVE Urine oxycodone detection NEGATIVE NEGA TIVE Urine propoxyphene detection NEGATIVE N EGATIVE Complete urinalysis with reflex to cultu re - 05/21/19 20:40 Urine color determination YELLOW NRG Urine clarity determination CLEAR NR G Urine pH measurement by test strip 5.5 5-9 Specific gravity of urine by test strip 1.015 1.016-1.022 Urine protein assay by test strip, semi-quantitative 2+ NEGATIVE Urine glucose detection by automated test strip NE GATIVE NEGATIVE Erythrocytes detection in urine sediment by light micr oscopy 1+ NEGATIVE Urine ketones detection by automated test strip NE GATIVE NEGATIVE Urine nitrite detection by test strip NEGATIVE NEGATIVE Urine total bilirubin detection by test strip NEGA TIVE NEGATIVE Urine urobilinogen measurement by automated test strip (mass/volume) 0.2 mg/dL < = 1.0 Urine leukocyte esterase detection by dipstick NEG ATIVE NEGATIVE Automated urine sediment erythrocyte cou nt by microscopy (number/high power field) [HPF] NRG Automated urine sediment leukocyte count by microscopy (number/high power field) [HPF] NRG Bacteria detection in urine sediment by light microsco py TRACE NRG Crystals detection in urine sediment by light microsco py NONE NRG Casts detection in urine sediment by light microscopy NONE NRG Mucus detection in urine sediment by light microscopy NEGATIVE NRG Complete urinalysis with reflex to culture NO NRG Complete blood count (CBC) with automate d white blood cell (WBC) differential - 05/21/19 21:23 Blood leukocytes automated count (number/volume) 8.4 10*3/uL 4.3-11.0 Blood erythrocytes automated count (number/volume) 5.73 10*6/uL 4.35-5.85 Venous blood hemoglobin measurement (mass/volume) 17.6 g/dL 13.3-17.7 Blood hematocrit (volume fraction) 47 % 40-54 Automated erythrocyte mean corpuscular volume 83 [ foz_us] 80-99 Automated erythrocyte mean corpuscular h emoglobin (mass per erythrocyte) 31 pg 25-34 Automated erythrocyte mean corpuscular h emoglobin concentration measurement (mass/volume) 37 g/dL 32-36 Automated erythrocyte distribution width ratio 13. 0 % 10.0- 14.5 Automated blood platelet count (count/volume) 199 10*3/uL 130-400 Automated blood platelet mean volume measurement 10.4 [foz_us] 7.4-10.4 Automated blood neutrophils/100 leukocytes 78 % 42-75 Automated blood lymphocytes/100 leukocytes 11 % 12-44 Blood monocytes/100 leukocytes 10 % 0-12 Automated blood eosinophils/100 leukocytes 1 % 0-10 Automated blood basophils/100 leukocytes 1 % 0-10 Blood neutrophils automated count (number/volume) 6.6 10*3 1.8-7.8 Blood lymphocytes automated count (number/volume) 0.9 10*3 1.0-4.0 Blood monocytes automated count (number/volume) 0. 8 10*3 0.0-1.0 Automated eosinophil count 0.0 10*3/uL 0 .0-0.3 Automated blood basophil count (count/volume) 0.1 10*3/uL 0.0-0.1 Comprehensive metabolic panel - 05/21/19 21:23 Serum or plasma sodium measurement (moles/volume) 129 mmol/L 135-145 Serum or plasma potassium measurement (moles/volume) 4.0 mmol/L 3.6-5.0 Serum or plasma chloride measurement (moles/volume) 100 mmol/L 98-107 Carbon dioxide 16 mmol/L 21-32 Serum or plasma anion gap determination (moles/volume) 13 mmol/L 5-14 Serum or plasma urea nitrogen measurement (mass/volume ) 9 mg/dL 7-18 Serum or plasma creatinine measurement (mass/volume) 1.05 mg/dL 0.60-1.30 Serum or plasma urea nitrogen/creatinine mass ratio 9 NRG Serum or plasma creatinine measurement w ith calculation of estimated glomerular filtration rate > NRG Serum or plasma glucose measurement (mass/volume) 106 mg/dL 70-105 Serum or plasma calcium measurement (mass/volume) 8.8 mg/dL 8.5-10.1 Serum or plasma total bilirubin measurement (mass/volu me) 0.5 mg/dL 0.1-1.0 Serum or plasma alkaline phosphatase cassia surement (enzymatic activity/volume) 74 U/L 40-136 Serum or plasma aspartate aminotransfera se measurement (enzymatic activity/volume) 29 U/L 5-34 Serum or plasma alanine aminotransferase measurement (enzymatic activity/volume) 30 U/L 0-55 Serum or plasma protein measurement (mass/volume) 7.1 g/dL 6.4-8.2 Serum or plasma albumin measurement (mass/volume) 3.6 g/dL 3.2-4.5 CALCIUM CORRECTED 9.1 mg/dL 8.5-10.1 Serum or plasma C reactive protein measu rement (mass/volume) - 05/21/19 21:23 Serum or plasma C reactive protein measurement (mass/v olume) 0.33 mg/dL 0.00-0.50 Serum or plasma ethanol measurement (mas s/volume) - 05/21/19 21:23 Serum or plasma ethanol measurement (mass/volume) 45 mg/dL <10 Serum or plasma creatine kinase measurem ent (enzymatic activity/volume) - 05/21/19 21:23 Serum or plasma creatine kinase measurem ent (enzymatic activity/volume) 89 U/L 30-200 Serum reagin antibody assay (units/volum e) by RPR - 05/21/19 21:23 Serum reagin antibody assay (units/volume) by RPR Non-Reactive Non-Reactive Tick identification panel - 05/21/19 21: 23 Serum Ehrlichia chaffeensis IgG antibody detection <1:16 <1:16 Serum Ehrlichia chaffeensis IgM antibody detection <1:10 <1:10 Serum Rickettsia rickettsii IgG antibody assay (units/ volume) <1:16 [place] spotted fever panel < <1:10 Francisella tularensis antibody assay <1:20 NRG LYME AB G M 2.22 % 0.00-0.89 Interpretation of Lyme disease antibody assay Posi tive Negative LYME DISEASE ANTIBODIES (IGG,IGM), IMMUN OBLOT - 06/04/19 13:19 LYME DISEASE AB(IGG),BLOT NEGATIVE NEGA TIVE 18 KD (IGG) BAND NON-REACTIVE NRG 23 KD (IGG) BAND NON-REACTIVE NRG 28 KD (IGG) BAND NON-REACTIVE NRG 30 KD (IGG) BAND NON-REACTIVE NRG 39 KD (IGG) BAND NON-REACTIVE NRG 41 KD (IGG) BAND REACTIVE NRG 45 KD (IGG) BAND NON-REACTIVE NRG 58 KD (IGG) BAND NON-REACTIVE NRG 66 KD (IGG) BAND NON-REACTIVE NRG 93 KD (IGG) BAND NON-REACTIVE NRG LYME DISEASE AB(IGM),BLOT NEGATIVE NEGA TIVE 23 KD (IGM) BAND NON-REACTIVE NRG 39 KD (IGM) BAND NON-REACTIVE NRG 41 KD (IGM) BAND NON-REACTIVE NRG Encounters ACCT No. Visit Date/Time Discharge Status Pt. Type Provider Facility Loc./Unit Complaint [id number] 06/04/2019 13:00:00 06/04/2019 23:59:5 9 CLS Outpatient ABEBA WEST APRN [facility], [place] [id number] 06/04/2019 13:00:00 Document Registration [id number] 04/15/2019 14:00:00 Document Registration [id number] 02/19/2019 13:25:00 Document Registration [id number] 03/10/2018 17:00:00 Document Registration [id number] 08/01/2017 09:20:00 Document Registration [id number] 05/21/2019 20:30:00 22:17:00 DIS Emergency ARSLAN FRITZ, KIM Pinon [facility] ER PAIN ALL OVER [id number] 03/17/2019 07:46:00 23:59:59 CLS Outpatient RAYRAY PORTER MD [facility] RAD RT ASYMMETRIC HEARING L OSS [id number] 12/15/2015 08:10:00 016 23:59:59 CLS Outpatient SCOTT MARISCAL DO [facility] RAD GASTROESOPHAGEAL REFLUX [id number] 09/09/2015 11:26:00 23:59:59 CLS Outpatient SCOTT MARISCAL DO [facility] RAD RT SIDED LBOM HEMATURA [id number] 01/03/2015 23:32:00 015 00:46:00 DIS Emergency DARRYL DO, LEELA Hdez [facility] ER SOA [id number] 06/25/2014 06:00:00 015 12:45:00 DIS Outpatient ALEJANDRA BONDS MD [facility] SDC INGUINAL HERNIA LEFT [id number] 06/22/2014 13:53:00 23:59:59 CLS Outpatient ALEJANDRA BONDS MD [facility] PREOP INGUINAL HERNIA [id number] 08/13/2014 11:30:00 Document Registration [id number] 10/21/2011 16:37:00 Document Registration
[2020-01-03] MEDS ORDERED: IBUPROFEN 800 MG (MOTRIN) TAB PO STA (11:49)
--- NOTE | 2020-01-03 11:49 | ED GU-Male ---
General Chief Complaint: Abdominal/GI Problems Stated Complaint: GROIN PAIN/HX OF HERNIA History of Present Illness Date Seen by Provider: Jan 03, 2020 Time Seen by Provider: 11:35 Initial Comments 59-year-old male presents for left groin pain, he had bilateral hernia repair in 2014. He has done well until lifting a heavy binge approximately 3 days ago. Since then he's been having pain and tenderness to palpation in his left groin. He hasn't noticed a hernia or bulge in the area. He denies any pain radiating into his scrotum or difficulty urinating. He denies constipation or diarrhea. No other complaints at this time. He took Tylenol the first day, but nothing since then. Timing/Duration: intermittent Severity/Quality: mild Location: groin (left) Radiation: none Activities at Onset: physical activity Associated Symptoms: denies symptoms Allergies and Home Medications Allergies Coded Allergies: Penicillins (Verified Allergy, Unknown, 06/25/14) penicillin (Unverified Allergy, Unknown, 01/03/15) Home Medications Trazodone Hcl 50 Mg Tablet, 100 MG PO HS, (Reported) TAKE 2 (50MG) TABS Patient Home Medication List Home Medication List Reviewed: Yes Review of Systems Review of Systems Constitutional: no symptoms reported, see HPI Musculoskeletal: see HPI, muscle pain (left groin) All Other Systemes Reviewed Negative Unless Noted: Yes Past Qwvease-Wvzfoo-Cmlxyx Hx Past Med/Social Hx: Reviewed Nursing Past Med/Soc Hx Patient Social History Alcohol Use: Regular Use Number of Drinks Today: 0 Alcohol Beverage of Choice: Beer Recreational Drug Use: No Smoking Status: Current Everyday Smoker Type Used: Cigarettes 2nd Hand Smoke Exposure: Yes Recent Foreign Travel: No Contact w/Someone Who Travel: No Physical Abuse: No Sexual Abuse: No Past Medical History Surgeries: Yes (BILATERAL INGUINAL HERNIA REPAIRS, CATARACTS) Abdominal, Eye Surgery Respiratory: Yes Emphysema Cardiac: No Neurological: No Gastrointestinal: No Musculoskeletal: No Endocrine: No Cataract Cancer: No Psychosocial: Yes Sleep Difficulties Integumentary: No Blood Disorders: No Physical Exam Vital Signs Vital Signs - First Documented 01/03/20 11:35 Temp 36.9 Pulse 91 Resp 18 B/P (MAP) 162/103 (122) Pulse Ox 97 Capillary Refill : Height, Weight, BMI Height: 6'0" Weight: 169lbs. oz. 76.556009vl; 23.00 BMI Method:Stated General Appearance: WD/WN, no apparent distress Cardiovascular: normal peripheral pulses, no murmur Respiratory: chest non-tender, lungs clear, normal breath sounds Gastrointestinal: normal bowel sounds, non tender, soft; No hernia Genital/Rectal: normal genital exam, tenderness (trace, left groin. No swelling, ecchymosis or hernia noted.) Extremities: normal range of motion, non-tender, normal inspection, normal capillary refill, pelvis stable, other (no pain left groin with range of motion to the left hip.) Neurologic/Psychiatric: no motor/sensory deficits, alert, normal mood/affect, oriented x 3 Skin: normal color, warm/dry Progress/Results/Core Measures Suspected Sepsis SIRS Temperature: Pulse: Respiratory Rate: Blood Pressure / Mean: Results/Orders My Orders Orders - ARA JONES Ibuprofen Tablet (Motrin Tablet) (01/03/20 11:49) Vital Signs/I&O 01/03/20 11:35 Temp 36.9 Pulse 91 Resp 18 B/P (MAP) 162/103 (122) Pulse Ox 97 Capillary Refill : Departure Impression Primary Impression: Left groin pain Disposition: HOME, SELF-CARE Condition: Improved Departure-Patient Inst. Decision time for Depature: 11:45 Referrals: [facility] [place]) Primary Care Physician CLAUDIA LANG MD Patient Instructions: Groin Hernia (DC), Inguinal and Femoral (Groin) Hernias Add. Discharge Instructions: Alternate between Tylenol 650 mg and ibuprofen 600 mg every 4 hours for pain. Apply warm moist compressions to left groin as needed for pain. Follow-up with your primary care provider or call Dr. Lang for an appointment if pain does not improve or a bulge develops at the area of tenderness. Return to the emergency department for new, urgent health care problems. All discharge instructions reviewed with patient and/or family. Voiced understanding. ARA JONES Jan 03, 2020 11:49
== END 2020-01-03 11:57 | disposition home or self-care (01) ==
LOC: EDUNIT# 11:26 → ER 11:28
DX: R10.32 Left lower quadrant pain (principal); F17.210 Nicotine dependence, cigarettes, uncomplicated; Z88.0 Allergy status to penicillin
CPT/HCPCS: 99283

== ENCOUNTER 2020-01-31 12:38 | Emergency (ER) | payer MEDICARE, MEDICAID ==
[~2020-01-31] VITALS: Ht 180 cm; Wt 80.0 kg
[2020-01-31] MEDS ORDERED: HYDR28CR19 TP (14:19)
[2020-01-31] MEDS ORDERED: LIDO30CR44 TP (14:19)
[2020-01-31] MEDS ORDERED: DOCU-143 PO (14:19)
--- NOTE | 2020-01-31 14:20 | ED GI ---
General Chief Complaint: Abdominal/GI Problems Stated Complaint: RECTAL PAIN Nursing Triage Note: THE PT IS AMBULATORY TO THE ROOM WITHOUT DIFFICULTY. NO DISTRESS IS SEEN ON ARRIVAL. LOC IS NORMAL FOR THE PT. THE PT C/O RECTAL BLEEDING. Sepsis Screen: No Definite Risk Source of Information: Patient Exam Limitations: No Limitations History of Present Illness Date Seen by Provider: Jan 31, 2020 Time Seen by Provider: 14:14 Initial Comments To ER with reports of a suspected hemorrhoid. He first noticed it this morning secondary to anal pain and a palpable abnormality. Timing/Duration: 12-24 Hours Severity/Quality: Moderate Radiation: No Radiation Activities at Onset: None Associated Symptoms: Denies Symptoms Allergies and Home Medications Allergies Coded Allergies: Penicillins (Verified Allergy, Unknown, 06/25/14) penicillin (Unverified Allergy, Unknown, 01/03/15) Home Medications Trazodone Hcl 50 Mg Tablet, 100 MG PO HS, (Reported) TAKE 2 (50MG) TABS Patient Home Medication List Home Medication List Reviewed: Yes Review of Systems Review of Systems Constitutional: see HPI EENTM: No Symptoms Reported Respiratory: No Symptoms Reported Cardiovascular: No Symptoms Reported Gastrointestinal: See HPI Genitourinary: No Symptoms Reported Musculoskeletal: no symptoms reported Skin: no symptoms reported Psychiatric/Neurological: No Symptoms Reported Endocrine: No Symptoms Reported Past Ukbmucj-Zadcyz-Zrlurq Hx Patient Social History Alcohol Beverage of Choice: Beer Type Used: Cigarettes 2nd Hand Smoke Exposure: Yes Recent Foreign Travel: No Contact w/Someone Who Travel: No Recent Infectious Disease Expo: No Past Medical History Surgeries: Yes (BILATERAL INGUINAL HERNIA REPAIRS, CATARACTS) Abdominal, Eye Surgery Respiratory: Yes Emphysema Cardiac: No Neurological: No Gastrointestinal: No Musculoskeletal: No Endocrine: No Cataract Cancer: No Psychosocial: Yes Sleep Difficulties Integumentary: No Blood Disorders: No Physical Exam Vital Signs Vital Signs - First Documented 01/31/20 14:10 Temp 36.7 Pulse 90 Resp 18 B/P (MAP) 148/100 (116) Capillary Refill : Less Than 3 Seconds Height/Weight/BMI Height: 6'0" Weight: 169lbs. oz. 76.522305op; 24.00 BMI Method:Stated General Appearance: WD/WN, no apparent distress Respiratory: normal breath sounds, no respiratory distress, no accessory muscle use Gastrointestinal: normal bowel sounds, non tender, soft Extremities: normal range of motion, non-tender Pelvic: other (there is a marble-sized thrombosed external hemorrhoid. I discussed with him we could try a topical cream/suppository or excision of the hemorrhoid. Advised him that the excision would be most helpful done within 48- 72 hours of symptom onset so we should do it today if he wishes, however he would rather just do the cream.) Neurologic/Psychiatric: alert, normal mood/affect, oriented x 3 Skin: normal color, warm/dry Progress/Results/Core Measures Results/Orders Vital Signs/I&O 01/31/20 14:10 Temp 36.7 Pulse 90 Resp 18 B/P (MAP) 148/100 (116) Blood Pressure Mean: 116 Departure Impression Primary Impression: Thrombosed external hemorrhoid Disposition: HOME, SELF-CARE Condition: Stable Departure-Patient Inst. Decision time for Depature: 14:17 Referrals: [facility] (PCP/Family) Primary Care Physician MELISA MARIO BRETT D DO KIDO, TAKAAKI MD Patient Instructions: Hemorrhoids Add. Discharge Instructions: Keep your stool soft by increasing water and fiber intake, take the stool softener as directed, mix the 2 creams together and apply twice daily. Follow up with one of the surgeons listed if this fails to resolve in about 2 weeks All discharge instructions reviewed with patient and/or family. Voiced understa nding. Scripts Docusate Sodium (Colace) 100 Mg Capsule 100 MG PO BID, #14 CAP Prov: RAMIREZ HARPER APRN 01/31/20 Hydrocortisone (Cortizone-10 Plus) 28 Gm Cream..g. 28 GM TP BID, #1 TUBE Prov: RAMIREZ HARPER APRN 01/31/20 Lidocaine (Lidocaine) 30 Gm Cream..g. 1 GM TP BID, #1 TUBE Prov: RAMIREZ HARPER APRN 01/31/20 RAMIREZ HARPER APRN Jan 31, 2020 14:20
[2020-01-31 14:25] VITALS: BP 148/100
== END 2020-01-31 14:25 | disposition home or self-care (01) ==
LOC: EDUNIT# 12:38 → ER 12:39
DX: K64.5 Perianal venous thrombosis (principal); Z88.0 Allergy status to penicillin; Z77.22 Contact with and (suspected) exposure to environmental tobacco smoke (acute) (chronic)
CPT/HCPCS: 99282

== ENCOUNTER 2020-02-02 15:36 | Emergency (ER) | payer MEDICARE, MEDICAID ==
[~2020-02-02] VITALS: Ht 175.3 cm; Wt 77.3 kg
[~2020-02-02 15:36] MED LIST changes: +DOCU-143 PO; +HYDR28CR19 TP; +LIDO30CR44 TP
[2020-02-02] MEDS ORDERED: BISACODYL 5 MG (DULCOLAX) TABLET PO ONE (17:15)
[2020-02-02] MEDS ORDERED: MILK OF MAGNESIA 400 MG/5 ML 30 ML UDC PO ONE (17:15)
--- NOTE | 2020-02-02 17:18 | ED General ---
General Chief Complaint: General Problems/Pain Stated Complaint: CONSTIPATION Nursing Triage Note: Pt ambulates to room #4 with c/o constipation. Pt states, "I can't go number two." When asked when pt LBM was pt states, "could have been yesterday." Pt denies pain, straining, nausea, vomiting, fever, or chills. Pt reports he is passing gas. Pt seen in this ED on 01/31/20 where he was dx. with hemorrhoids. A&OX4. Nursing Sepsis Screen: No Definite Risk History of Present Illness Date Seen by Provider: Feb 05, 2020 Time Seen by Provider: 16:40 Initial Comments 60-year-old male presents for constipation. He was seen here approximately 3 days ago for hemorrhoids. He is using the external ointment, and unsure if he is taking a stool softener. He reports his last bowel movement was yesterday. He does report pain when trying to strain for past stool. Timing/Duration: 1-2 Days Associated Systoms: Denies Symptoms; No Loss of Appetite, No Nausea/Vomiting Allergies and Home Medications Allergies Coded Allergies: Penicillins (Verified Allergy, Unknown, 06/25/14) penicillin (Unverified Allergy, Unknown, 01/03/15) Home Medications Docusate Sodium 100 Mg Capsule, 100 MG PO BID Prescribed by: RAMIREZ HARPER on 01/31/20 1419 Hydrocortisone 28 Gm Cream..g., 28 GM TP BID Prescribed by: RAMIREZ HARPER on 01/31/20 1419 Lidocaine 30 Gm Cream..g., 1 GM TP BID Prescribed by: RAMIREZ HARPER on 01/31/20 1419 Trazodone Hcl 50 Mg Tablet, 100 MG PO HS, (Reported) TAKE 2 (50MG) TABS Patient Home Medication List Home Medication List Reviewed: Yes Review of Systems Review of Systems Constitutional: no symptoms reported, see HPI Gastrointestinal: see HPI; No abdominal pain; constipation; No loss of appetite, No nausea, No vomiting All Other Systems Reviewed Negative Unless Noted: Yes Past Jqsmvrp-Smtoqy-Fudwsk Hx Past Med/Social Hx: Reviewed Nursing Past Med/Soc Hx Patient Social History Alcohol Use: Regular Use Number of Drinks Today: 0 Alcohol Beverage of Choice: Beer Recreational Drug Use: No Smoking Status: Current Everyday Smoker Type Used: Cigarettes 2nd Hand Smoke Exposure: Yes Recent Foreign Travel: No Contact w/Someone Who Travel: No Recent Infectious Disease Expo: No Past Medical History Surgeries: Yes (BILATERAL INGUINAL HERNIA REPAIRS, CATARACTS) Abdominal, Eye Surgery Respiratory: Yes Emphysema Cardiac: No Neurological: No Gastrointestinal: No Musculoskeletal: No Endocrine: No Cataract Cancer: No Psychosocial: Yes Sleep Difficulties Integumentary: No Blood Disorders: No Physical Exam Vital Signs Vital Signs - First Documented 02/02/20 16:30 Temp 36.9 Pulse 82 Resp 18 B/P (MAP) 145/88 (107) Pulse Ox 98 O2 Delivery Room Air Capillary Refill : Less Than 3 Seconds Height, Weight, BMI Height: 6'0" Weight: 169lbs. oz. 76.749506ni; 25.00 BMI Method:Stated General Appearance: No Apparent Distress, WD/WN HEENT: PERRL/EOMI, TMs Normal, Normal ENT Inspection, Pharynx Normal Neck: Full Range of Motion, Normal Inspection, Non Tender, Supple Respiratory: Chest Non Tender, Lungs Clear, Normal Breath Sounds Cardiovascular: Regular Rate, Rhythm, No Murmur, Normal Peripheral Pulses Gastrointestinal: Normal Bowel Sounds, Non Tender, Soft Neurologic/Psychiatric: Alert, Oriented x3, No Motor/Sensory Deficits, Normal Mood/Affect Skin: Normal Color, Warm/Dry Progress/Results/Core Measures Suspected Sepsis Recent Fever Within 48 Hours: No Infection Criteria Present: None New/Unexplained Altered Menta: No Sepsis Screen: No Definite Risk SIRS Temperature: Pulse: 82 Respiratory Rate: 18 Blood Pressure 145 /88 Mean: 107 Results/Orders My Orders Vital Signs/I&O Capillary Refill : Less Than 3 Seconds Blood Pressure Mean: 107 Departure Impression Primary Impression: Constipation Qualified Codes: K59.00 - Constipation, unspecified Disposition: HOME, SELF-CARE Condition: Improved Departure-Patient Inst. Decision time for Depature: 17:05 Referrals: [facility] (PCP/Family) Primary Care Physician MELISA MARIO TAKAAKI MD Patient Instructions: Constipation, Adult (DC) Add. Discharge Instructions: Increase water intake, 16 ounces every 2 hours while awake. Eat more fruits and vegetables. Take Dulcolax one tablet twice daily. You may use an enema or milk of magnesia for constipation. Keep using medication prescribed at previous ER visit for hemorrhoids. Return to the emergency department for new, urgent health care needs. All discharge instructions reviewed with patient and/or family. Voiced understanding. ARA JONES Feb 02, 2020 17:18
[2020-02-02 17:35] VITALS: BP 144/93
== END 2020-02-02 17:38 | disposition home or self-care (01) ==
LOC: EDUNIT# 15:36 → ER 15:37
DX: K59.00 Constipation, unspecified (principal); J43.9 Emphysema, unspecified; F17.210 Nicotine dependence, cigarettes, uncomplicated; Z88.0 Allergy status to penicillin
CPT/HCPCS: 99283

== ENCOUNTER 2020-03-05 12:51 | Emergency (ER) | payer MEDICARE, MEDICAID ==
[~2020-03-05] VITALS: Ht 180.3 cm; Wt 72.5 kg
--- NOTE | 2020-03-05 13:03 | ED EENT ---
History of Present Illness General Chief Complaint: Ear Problems Stated Complaint: R EAR PAIN Source: patient Exam Limitations: no limitations History of Present Illness Date Seen by Provider: Mar 05, 2020 Time Seen by Provider: 13:12 Initial Comments This is a healthy appearing 60-year-old male who presents for right ear pain. States he has had throbbing pain in his ear 2 days, denies any trauma or injury. Denies any precipitating or alleviating factors as he has not tried any qsav-vug-dgzhfoi medications at home prior to ED visit. Denies fevers, chills, nausea, vomiting, abdominal pain, cough, shortness of breath Location Injury Occurred: right ear Location: ear (R) Prearrival Treatment: no prearrival treatment Associated Symptoms: denies symptoms Allergies and Home Medications Allergies Coded Allergies: Penicillins (Verified Allergy, Unknown, 06/25/14) penicillin (Unverified Allergy, Unknown, 01/03/15) Home Medications Docusate Sodium 100 Mg Capsule, 100 MG PO BID Prescribed by: RAMIREZ HARPER on 01/31/20 141 Hydrocortisone 28 Gm Cream..g., 28 GM TP BID Prescribed by: RAMIREZ HARPER on 01/31/20 141 Lidocaine 30 Gm Cream..g., 1 GM TP BID Prescribed by: RAMIREZ HARPER on 01/31/20 1419 Trazodone Hcl 50 Mg Tablet, 100 MG PO HS, (Reported) TAKE 2 (50MG) TABS Patient Home Medication List Home Medication List Reviewed: Yes Review of Systems Review of Systems Constitutional: no symptoms reported Eyes: No Symptoms Reported Ears: See HPI Nose: no symptoms reported Mouth: no symptoms reported Throat: no symptoms reported Respiratory: no symptoms reported Cardiovascular: no symptoms reported Gastrointestinal: no symptoms reported Musculoskeletal: no symptoms reported Skin: no symptoms reported Neurological: No Symptoms Reported Hematologic/Lymphatic: No Symptoms Reported Immunological/Allergic: no symptoms reported Past Dohudvz-Uvijna-Cdmvfg Hx Patient Social History Alcohol Use: Past History Number of Drinks Today: AA Alcohol Beverage of Choice: Beer Recreational Drug Use: No Smoking Status: Former Smoker Type Used: Cigarettes 2nd Hand Smoke Exposure: Yes (REPORTS QUITTING SMOKING TWO WEEKS AGO) Recent Foreign Travel: No Contact w/Someone Who Travel: No Past Medical History Surgeries: Yes (BILATERAL INGUINAL HERNIA REPAIRS, CATARACTS) Abdominal, Eye Surgery Respiratory: Yes Emphysema Cardiac: No Neurological: No Gastrointestinal: No Musculoskeletal: No Endocrine: No Cataract Cancer: No Psychosocial: Yes Sleep Difficulties Integumentary: No Blood Disorders: No Physical Exam Vital Signs Vital Signs - First Documented 03/05/20 12:52 Temp 36.6 Pulse 83 Resp 20 B/P (MAP) 153/109 (124) Pulse Ox 96 O2 Delivery Room Air Height, Weight, BMI Height: 6'0" Weight: 169lbs. oz. 76.770376do; 25.00 BMI Method:Stated General Appearance: WD/WN, no apparent distress Eyes: bilateral eye normal inspection, bilateral eye PERRL, bilateral eye EOMI Ears: right ear other (retracted, no erythema or bulging.); left ear TM normal; bilateral ear auricle normal, bilateral ear canal normal Nose: normal inspection Mouth/Throat: normal mouth inspection, pharynx normal Neck: non-tender, full range of motion, supple, normal inspection Cardiovascular: regular rate, rhythm, no edema, no murmur Respiratory: chest non-tender, lungs clear, normal breath sounds, no respiratory distress, no accessory muscle use Neurologic/Psychiatric: no motor/sensory deficits, alert, normal mood/affect, oriented x 3 Skin: normal color, warm/dry Progress/Results/Core Measures Results/Orders My Orders Orders - TOSHIA MANZANO APRN Ibuprofen Tablet (Motrin Tablet) (03/05/20 13:30) Medications Given in ED Current Medications Medications Dose Ordered Sig/Milo Route Start Time Stop Time Status Last Admin Dose Admin Ibuprofen 400 mg ONCE ONCE PO 03/05/20 13:30 03/05/20 13:20 DC 03/05/20 13:20 400 MG Vital Signs/I&O 03/05/20 03/05/20 12:52 13:20 Temp 36.6 36.6 Pulse 83 83 Resp 20 20 B/P (MAP) 153/109 (124) 153/109 (124) Pulse Ox 96 96 O2 Delivery Room Air Progress Progress Note : Progress Note Systemic symptoms reported. Right ear retracted, no erythema or bulging present. TM intact. Reviewed POC with him and he is agreeable with plan. Departure Impression Primary Impression: Ear pain, right Disposition: 01 HOME, SELF-CARE Condition: Stable/Unchanged Departure-Patient Inst. Decision time for Depature: 13:15 Referrals: [facility] (PCP/Family) Primary Care Physician Patient Instructions: How to Use Ear Drops Add. Discharge Instructions: Plan: 1. Discharge home. May use over the counter ear relief as directed for pain. 2. May take Tylenol or Ibuprofen as needed for pain per package instructions. 3. Follow up with your primary care provider if your symptoms persist. 4. Return for any new or concerning symptoms. All discharge instructions reviewed with patient and/or family. Voiced understanding. TOSHIA MANZANO SPRAY GUN REPAIRER Mar 05, 2020 13:03
[2020-03-05 13:20] VITALS: BP 153/109
[2020-03-05] MEDS ORDERED: IBUPROFEN TABLET 200 MG TAB PO ONE (13:30)
[2020-03-05] MEDS ORDERED: NF-CIPDEC OT (21:17)
== END 2020-03-05 13:20 | disposition home or self-care (01) ==
LOC: EDUNIT# 12:51 → ER 12:52
DX: H92.01 Otalgia, right ear (principal); Z88.0 Allergy status to penicillin; Z87.891 Personal history of nicotine dependence; Z79.52 Long term (current) use of systemic steroids
CPT/HCPCS: 99283

== ENCOUNTER 2020-03-05 20:06 | Emergency (ER) | payer MEDICARE, MEDICAID ==
[~2020-03-05] VITALS: Ht 177.8 cm; Wt 74.0 kg
[2020-03-05] MEDS ORDERED: L.E.T. SOLUTION 3 ML SYR ONE (21:04)
--- NOTE | 2020-03-05 21:13 | ED EENT ---
History of Present Illness General Chief Complaint: Ear Problems Stated Complaint: EAR ACHES Nursing Triage Note: PT TO ED W/ C/O RT EAR PAIN. REPORTS WAS SEEN IN THIS FACILITY FOR SAME COMPLAINT TODAY BUT DENIES IMPROVEMENT. ALSO REPORTS WAS TOLD TO FIND "EAR DROPS W/ STEROIDS" BUT COULD NOT FIND ANY. History of Present Illness Date Seen by Provider: Mar 05, 2020 Time Seen by Provider: 21:08 Initial Comments His is a 60-year-old male who presented to the ER or his second visit complaining of right ear pain. She is unable to locate ear pain relief medication eqgq-jhm-cuoxnao, and needs immediate relief at this time. No new or concerning symptoms. Allergies and Home Medications Allergies Coded Allergies: Penicillins (Verified Allergy, Unknown, 06/25/14) penicillin (Unverified Allergy, Unknown, 01/03/15) Home Medications Ciprofloxacin HCl/Dexameth 7.5 Ml Soln, 7.[address] 4 drops in the affected ear every 12 hours for seven days. Prescribed by: TOSHIA MANZANO on 03/05/202116 Docusate Sodium 100 Mg Capsule, 100 MG PO BID Prescribed by: RAMIREZ HARPER on 01/31/20 141 Hydrocortisone 28 Gm Cream..g., 28 GM TP BID Prescribed by: RAMIREZ HARPER on 01/31/20 141 Lidocaine 30 Gm Cream..g., 1 GM TP BID Prescribed by: RAMIREZ HARPER on 01/31/20 141 Trazodone Hcl 50 Mg Tablet, 100 MG PO HS, (Reported) TAKE 2 (50MG) TABS Patient Home Medication List Home Medication List Reviewed: Yes Review of Systems Review of Systems Constitutional: no symptoms reported Eyes: No Symptoms Reported Ears: See HPI Nose: no symptoms reported Mouth: no symptoms reported Throat: no symptoms reported Respiratory: no symptoms reported Cardiovascular: no symptoms reported Gastrointestinal: no symptoms reported Musculoskeletal: no symptoms reported Skin: no symptoms reported Neurological: No Symptoms Reported Hematologic/Lymphatic: No Symptoms Reported Immunological/Allergic: no symptoms reported Past Efzyrmo-Nccwnw-Osdsxf Hx Patient Social History Alcohol Use: Past History Alcohol Beverage of Choice: Beer Recreational Drug Use: No Smoking Status: Former Smoker Type Used: Cigarettes Former Smoker, Quit: Feb 21, 2020 2nd Hand Smoke Exposure: Yes (REPORTS QUITTING SMOKING TWO WEEKS AGO) Recent Foreign Travel: No Contact w/Someone Who Travel: No Recent Infectious Disease Expo: No Physical Abuse: No Sexual Abuse: No Mistreated: No Fear: No Past Medical History Surgeries: Yes (BILATERAL INGUINAL HERNIA REPAIRS, CATARACTS) Abdominal, Eye Surgery Respiratory: Yes Emphysema Cardiac: No Neurological: No Gastrointestinal: No Musculoskeletal: No Endocrine: No Cataract Cancer: No Psychosocial: Yes Sleep Difficulties Integumentary: No Blood Disorders: No Physical Exam Vital Signs Vital Signs - First Documented 03/05/20 20:31 Temp 36.9 Pulse 72 Resp 18 B/P (MAP) 167/89 (115) Pulse Ox 100 O2 Delivery Room Air Height, Weight, BMI Height: 6'0" Weight: 169lbs. oz. 76.870066hv; 23.00 BMI Method:Stated General Appearance: WD/WN, no apparent distress Ears: right ear tenderness, right ear TM dull, right ear other (TM retracted) Nose: normal inspection Neck: full range of motion, normal inspection Cardiovascular: regular rate, rhythm, no murmur Respiratory: chest non-tender, lungs clear Neurologic/Psychiatric: alert, normal mood/affect, oriented x 3 Skin: normal color, warm/dry Progress/Results/Core Measures Results/Orders My Orders Orders - TOSHIA MANZANO APRN Let Solution (Let Solution) (03/05/20 21:15) Let Solution (Let Solution) (03/05/20 21:04) Medications Given in ED Current Medications Medications Dose Ordered Sig/Milo Route Start Time Stop Time Status Last Admin Dose Admin Tetracaine/ Epinephrine/ Lidocaine 3 ml ONCE ONCE TOP 03/05/20 21:15 03/05/20 21:16 DC 03/05/20 21:11 3 ML Vital Signs/I&O 03/05/20 03/05/20 20:31 21:21 Temp 36.9 Pulse 72 0 Resp 18 0 B/P (MAP) 167/89 (115) 0/0 Pulse Ox 100 0 O2 Delivery Room Air Blood Pressure Mean: 115 Progress Progress Note : Progress Note Instilled 3 drops of LET into his right ear, reported improvement of symptoms. Reviewed POC, and he is agreeable with plan. Departure Impression Primary Impression: Ear problem Disposition: 01 HOME, SELF-CARE Condition: Improved Departure-Patient Inst. Decision time for Depature: 21:09 Referrals: [facility] (PCP) Primary Care Physician ABEBA WEST (Family) Primary Care Physician Patient Instructions: How to Use Ear Drops Add. Discharge Instructions: Plan: 1. Take Ibuprofen or Tylenol as needed for pain. 2. Follow up with your primary care provider on Saturday. 3. Use ear drops as directed. 4. Return for any new or concerning symptoms. All discharge instructions reviewed with patient and/or family. Voiced understanding. Scripts Ciprofloxacin HCl/Dexameth (Ciprodex Otic Suspension) 7.5 Ml Soln 7.5 ML OT BID for 7 Days, #[address] 4 drops in the affected ear every 12 hours for seven days. Prov: TOSHIA MANZANO HOP FARM WORKER 03/05/20 TOSHIA MANZANO HOP FARM WORKER Mar 05, 2020 21:13
[2020-03-05] MEDS ORDERED: L.E.T. SOLUTION 3 ML SYR TOP ONE (21:15)
[2020-03-05] MEDS ORDERED: NF-CIPDEC OT (21:17)
[2020-03-05 21:21] VITALS: BP 0/0
--- NOTE | 2020-03-05 21:21 | NUR ---
PT DISCHARGED TO HOME W/ RX ET INSTR. PT TO F/U W/ PCP THIS WEEK, TAKE MEDS DIRECTED ET RETURN IF SYMPTOMS CHANGE OR GET WORSE.
== END 2020-03-05 21:21 | disposition home or self-care (01) ==
LOC: EDUNIT# 20:06 → ER 20:08
DX: H93.91 Unspecified disorder of right ear (principal); Z88.0 Allergy status to penicillin; Z87.891 Personal history of nicotine dependence
CPT/HCPCS: 99282

== ENCOUNTER 2020-03-12 10:27 | Emergency (ER) | payer MEDICARE, MEDICAID ==
[~2020-03-12] VITALS: Ht 180 cm; Wt 73.0 kg
[~2020-03-12 10:27] MED LIST changes: +NF-CIPDEC OT
[2020-03-12 10:30] VITALS: BP 126/90
[2020-03-12] MEDS ORDERED: PSEU240T6 PO (10:42)
[2020-03-12] MEDS ORDERED: PRD20T PO (10:42)
--- NOTE | 2020-03-12 10:43 | ED EENT ---
History of Present Illness General Chief Complaint: Ear Problems Stated Complaint: R EAR PAIN Nursing Triage Note: ARRIVED VIA AMB TO ROOM 07 WITH COMPLAINTS OF RIGHT EAR PAIN X1 WEEK. STATES HE SEEN HIS DR WHO PUT HIM ON ZITHROMAX BUT HAS HAD NO IMPROVEMENT. Source: patient Exam Limitations: no limitations History of Present Illness Date Seen by Provider: Mar 12, 2020 Time Seen by Provider: 10:39 Initial Comments Right ear pain for 1 week. Took a course of Zithromax without improvement Timing/Duration: gradual Severity: moderate Prearrival Treatment: no prearrival treatment Associated Symptoms: denies symptoms Allergies and Home Medications Allergies Coded Allergies: Penicillins (Verified Allergy, Unknown, 06/25/14) penicillin (Unverified Allergy, Unknown, 01/03/15) Home Medications Ciprofloxacin HCl/Dexameth 7.5 Ml Soln, 7.[address] 4 drops in the affected ear every 12 hours for seven days. Prescribed by: TOSHIA MANZANO on 03/05/202116 Docusate Sodium 100 Mg Capsule, 100 MG PO BID Prescribed by: RAMIREZ HARPER on 01/31/20 141 Hydrocortisone 28 Gm Cream..g., 28 GM TP BID Prescribed by: RAMIREZ HARPER on 01/31/20 141 Lidocaine 30 Gm Cream..g., 1 GM TP BID Prescribed by: RAMIREZ HARPER on 01/31/20 141 Trazodone Hcl 50 Mg Tablet, 100 MG PO HS, (Reported) TAKE 2 (50MG) TABS Patient Home Medication List Home Medication List Reviewed: Yes Review of Systems Review of Systems Constitutional: see HPI Eyes: No Symptoms Reported Ears: See HPI, Pain Nose: no symptoms reported Mouth: no symptoms reported Throat: no symptoms reported Respiratory: no symptoms reported Cardiovascular: no symptoms reported Musculoskeletal: no symptoms reported Skin: no symptoms reported Neurological: No Symptoms Reported Hematologic/Lymphatic: No Symptoms Reported Immunological/Allergic: no symptoms reported Past Jsdszgz-Dsfvwh-Waabob Hx Patient Social History Alcohol Beverage of Choice: Beer Type Used: Cigarettes Former Smoker, Quit: Feb 21, 2020 2nd Hand Smoke Exposure: Yes (REPORTS QUITTING SMOKING TWO WEEKS AGO) Recent Foreign Travel: No Contact w/Someone Who Travel: No Recent Infectious Disease Expo: No Past Medical History Surgeries: Yes (BILATERAL INGUINAL HERNIA REPAIRS, CATARACTS) Abdominal, Eye Surgery Respiratory: Yes Emphysema Cardiac: No Neurological: No Gastrointestinal: No Musculoskeletal: No Endocrine: No Cataract Cancer: No Psychosocial: Yes Sleep Difficulties Integumentary: No Blood Disorders: No Physical Exam Vital Signs Vital Signs - First Documented 03/12/20 10:30 Temp 36.7 Pulse 86 Resp 16 B/P (MAP) 126/90 (102) Pulse Ox 99 O2 Delivery Room Air Height, Weight, BMI Height: 6'0" Weight: 169lbs. oz. 76.326562fs; 22.00 BMI Method:Stated General Appearance: WD/WN, no apparent distress Eyes: bilateral eye normal inspection, bilateral eye PERRL, bilateral eye EOMI Ears: right ear other (right tympanic membrane slightly bulging but not erythematous); left ear TM normal; bilateral ear auricle normal, bilateral ear canal normal Neck: non-tender, full range of motion Respiratory: no respiratory distress, no accessory muscle use Neurologic/Psychiatric: alert, normal mood/affect, oriented x 3 Skin: normal color, warm/dry Progress/Results/Core Measures Results/Orders Vital Signs/I&O 03/12/20 10:30 Temp 36.7 Pulse 86 Resp 16 B/P (MAP) 126/90 (102) Pulse Ox 99 O2 Delivery Room Air Blood Pressure Mean: 102 Departure Impression Primary Impression: Ear pain, right Disposition: 01 HOME, SELF-CARE Condition: Stable Departure-Patient Inst. Decision time for Depature: 10:40 Referrals: [facility] [place] (PCP) Primary Care Physician ABEBA WEST (Family) Primary Care Physician RAYRAY ANDRE MD Add. Discharge Instructions: 1. Take the steroids and decongestants as directed. Since this has been a recurrent issue for you would be a good idea to see Dr. Andre from [facility] here in [place]. Call his office Saturday morning to make an appointment to be seen. All discharge instructions reviewed with patient and/or family. Voiced understanding. Scripts Prednisone (Prednisone) 20 Mg Tab 40 MG PO DAILY, #6 TAB 0 Refills Prov: RAMIREZ HARPER APRN 03/12/20 RAMIREZ HARPER APRN Mar 12, 2020 10:43
== END 2020-03-12 10:48 | disposition home or self-care (01) ==
LOC: EDUNIT# 10:27 → ER 10:28
DX: H92.01 Otalgia, right ear (principal); Z87.891 Personal history of nicotine dependence; Z88.0 Allergy status to penicillin
CPT/HCPCS: 99282

== ENCOUNTER 2020-03-14 18:06 | Emergency (ER) | payer MEDICARE, MEDICAID ==
[~2020-03-14] VITALS: Ht 177 cm; Wt 79.0 kg
[~2020-03-14 18:06] MED LIST changes: +PRD20T PO; +PSEU240T6 PO
--- NOTE | 2020-03-14 18:22 | ED EENT ---
History of Present Illness General Chief Complaint: Ear Problems Stated Complaint: EAR ACHE Nursing Triage Note: ARRIVED VIA AMB TO ROOM 08 WITHOUT DIFFICULTY. COMPLAINS OF RIGHT EAR PAIN FOR SEVERAL DAYS. WAS JUST SEEN HERE THIS WEEKEND FOR THE SAME PAIN. Source: patient Exam Limitations: no limitations History of Present Illness Date Seen by Provider: Mar 14, 2020 Time Seen by Provider: 18:18 Initial Comments To ER by private vehicle with persistent right ear pain. This has been an ongoing issue for him, he saw primary care who gave Ciprodex, then on another visit they gave Zithromax so he stopped the Ciprodex. He came in here a few days ago and I added prednisone and Sudafed as the TM appeared normal though AB with some air-fluid levels behind it. Reports persistent pain to the right ear so he comes back today. Timing/Duration: gradual Severity: moderate Location: facial Associated Symptoms: denies symptoms Allergies and Home Medications Allergies Coded Allergies: Penicillins (Verified Allergy, Unknown, 06/25/14) penicillin (Unverified Allergy, Unknown, 01/03/15) Home Medications Ciprofloxacin HCl/Dexameth 7.5 Ml Soln, 7.[address] 4 drops in the affected ear every 12 hours for seven days. Prescribed by: TOSHIA MANZANO on 03/05/202116 Docusate Sodium 100 Mg Capsule, 100 MG PO BID Prescribed by: RAMIREZ HARPER on 01/31/20 141 Hydrocortisone 28 Gm Cream..g., 28 GM TP BID Prescribed by: RAMIREZ HARPER on 01/31/20 141 Lidocaine 30 Gm Cream..g., 1 GM TP BID Prescribed by: RAMIREZ HARPER on 01/31/20 141 Prednisone 20 Mg Tab, 40 MG PO DAILY Prescribed by: RAMIREZ HARPER on 03/12/20 1042 Pseudoephedrine HCl 240 Mg Tab.er.24h, 240 MG PO DAILY Prescribed by: RAMIREZ HARPER on 03/12/20 1043 Trazodone Hcl 50 Mg Tablet, 100 MG PO HS, (Reported) TAKE 2 (50MG) TABS Patient Home Medication List Home Medication List Reviewed: Yes Review of Systems Review of Systems Constitutional: see HPI Eyes: No Symptoms Reported Ears: No Symptoms Reported Nose: no symptoms reported Mouth: no symptoms reported Throat: no symptoms reported Musculoskeletal: no symptoms reported Past Dmkoaza-Ylodej-Cawnak Hx Patient Social History Alcohol Beverage of Choice: Beer Type Used: Cigarettes Former Smoker, Quit: Feb 21, 2020 2nd Hand Smoke Exposure: Yes (REPORTS QUITTING SMOKING TWO WEEKS AGO) Recent Foreign Travel: No Contact w/Someone Who Travel: No Recent Infectious Disease Expo: No Past Medical History Surgeries: Yes (BILATERAL INGUINAL HERNIA REPAIRS, CATARACTS) Abdominal, Eye Surgery Respiratory: Yes Emphysema Cardiac: No Neurological: No Gastrointestinal: No Musculoskeletal: No Endocrine: No Cataract Cancer: No Psychosocial: Yes Sleep Difficulties Integumentary: No Blood Disorders: No Physical Exam Vital Signs Vital Signs - First Documented 03/14/20 18:08 Temp 36.7 Pulse 89 Resp 16 B/P (MAP) 169/94 (119) Pulse Ox 99 O2 Delivery Room Air Height, Weight, BMI Height: 6'0" Weight: 169lbs. oz. 76.625310fg; 25.00 BMI Method:Stated General Appearance: WD/WN, no apparent distress, other (alert and oriented, very pleasant. Right periauricular region has a normal appearance, tympanic membrane remains normal.) Eyes: bilateral eye normal inspection, bilateral eye PERRL, bilateral eye EOMI Ears: bilateral ear auricle normal, bilateral ear canal normal, bilateral ear TM normal Neck: non-tender, full range of motion Respiratory: no respiratory distress, no accessory muscle use Gastrointestinal: normal bowel sounds, non tender Neurologic/Psychiatric: alert, normal mood/affect, oriented x 3 Skin: normal color, warm/dry Progress/Results/Core Measures Results/Orders My Orders Orders - RAMIREZ HARPER APRN Ct Iac (Test Consultant Audit Canal) Wo (03/14/20 18:11) Vital Signs/I&O 03/14/20 18:08 Temp 36.7 Pulse 89 Resp 16 B/P (MAP) 169/94 (119) Pulse Ox 99 O2 Delivery Room Air Blood Pressure Mean: 119 Diagnostic Imaging Diagonstic Imaging: CT Comments NAME: GULSHAN LEACH Jaimee MED REC#: [id number] PT STATUS: REG ER : 1960 PHYSICIAN: RAMIREZ HARPER APRN ADMIT DATE: 03/14/20/ER Draft Date of Exam:03/14/20 CT IAC (RECONCILIATION ANALYST AUDIT CANAL) WO HISTORY: REASON FOR EXAM: persistent right earache TIME OF EXAM: 03/14/2020 6:37 PM COMPARISON: MRI from 03/17/2019. TECHNIQUE: Thin section high resolution noncontrast enhanced axial images were obtained through the region of the temporal bones. Directly acquired thin section coronal images were also obtained and reviewed. FINDINGS: Right petrous bone: The external auditory canal is unremarkable. The middle ear cavity is well aerated. There is no erosion or disruption of the ossicular chain. The mastoid air cells are markedly pneumatized. The inner ear structures including the vestibula and cochlea are unremarkable. No focal abnormality or erosion is seen in the internal auditory canal. The course of the facial nerve is unremarkable. Left petrous bone: The external auditory canal is unremarkable. The middle ear cavity is well aerated. There is no erosion or disruption of the ossicular chain. The mastoid air cells are markedly pneumatized. The inner ear structures including the vestibula and cochlea are unremarkable. No focal abnormality or erosion is seen in the internal auditory canal. The course of the facial nerve is unremarkable. Included views of the intracranial structures demonstrate no acute abnormalities. IMPRESSION: 1. The petrous bone is unremarkable bilaterally. The ossicular chain appears intact and symmetric. 2. No evidence of abnormal masses or fluid collections. 3. Mildly hyperpneumatized temporal bone, with no significant fluid seen in the mastoid air cells. Dictated on workstation # [id number] Dict: 03/14/20 1838 Trans: 03/14/20 1851 [id number] Interpreted by: RYANN KELLY MD Electronically signed by: Departure Communication (Admissions) Did a cervical paraspinous muscle injection at the C6 to C7 on the right location using 2.5 mL of 0.5% bupivacaine Impression Primary Impression: Ear pain, right Disposition: HOME, SELF-CARE Condition: Stable Departure-Patient Inst. Decision time for Depature: 19:21 Referrals: [facility] [place] (PCP) Primary Care Physician ABEBA WEST (Family) Primary Care Physician Add. Discharge Instructions: 1. Call Dr. Andre to make an appointment to be seen for follow-up. All discharge instructions reviewed with patient and/or family. Voiced understanding. RAMIREZ HARPER APRN Mar 14, 2020 18:22
--- NOTE | 2020-03-14 18:50 | NUR ---
REPORT AND CARE TURNED OVER TO [facility].
--- NOTE | 2020-03-14 18:51 | Diagnostic Imaging Report ---
HISTORY: REASON FOR EXAM: persistent right earache TIME OF EXAM: 03/14/2020 6:37 PM COMPARISON: MRI from 03/17/2019. TECHNIQUE: Thin section high resolution noncontrast enhanced axial images were obtained through the region of the temporal bones. Directly acquired thin section coronal images were also obtained and reviewed. FINDINGS: Right petrous bone: The external auditory canal is unremarkable. The middle ear cavity is well aerated. There is no erosion or disruption of the ossicular chain. The mastoid air cells are markedly pneumatized. The inner ear structures including the vestibula and cochlea are unremarkable. No focal abnormality or erosion is seen in the internal auditory canal. The course of the facial nerve is unremarkable. Left petrous bone: The external auditory canal is unremarkable. The middle ear cavity is well aerated. There is no erosion or disruption of the ossicular chain. The mastoid air cells are markedly pneumatized. The inner ear structures including the vestibula and cochlea are unremarkable. No focal abnormality or erosion is seen in the internal auditory canal. The course of the facial nerve is unremarkable. Included views of the intracranial structures demonstrate no acute abnormalities. IMPRESSION: 1. The petrous bone is unremarkable bilaterally. The ossicular chain appears intact and symmetric. 2. No evidence of abnormal masses or fluid collections. 3. Mildly hyperpneumatized temporal bone, with no significant fluid seen in the mastoid air cells. Dictated by: Dictated on workstation # [id number]
[2020-03-14] MEDS ORDERED: RX-HYDROCODONE/APAP 5/325 MG #4 TAB PK PO ONE (19:34)
[2020-03-14 19:42] VITALS: BP 169/94
[2020-03-14] MEDS ORDERED: RX-HYDROCODONE/APAP 5/325 MG #4 TAB PK PO PRN (19:45)
== END 2020-03-14 19:42 | disposition home or self-care (01) ==
LOC: EDUNIT# 18:06 → ER 18:08
DX: H92.01 Otalgia, right ear (principal); Z87.891 Personal history of nicotine dependence; Z79.52 Long term (current) use of systemic steroids; Z88.0 Allergy status to penicillin
CPT/HCPCS: 70480

== ENCOUNTER 2020-04-05 19:29 | Emergency (ER) | payer MEDICARE, MEDICAID ==
[~2020-04-05] VITALS: Ht 170 cm; Wt 72.5 kg
[2020-04-05 19:41] VITALS: BP 137/80
--- NOTE | 2020-04-05 19:53 | ED EENT ---
History of Present Illness General Stated Complaint: DENTAL ISSUES Source: patient Exam Limitations: no limitations History of Present Illness Date Seen by Provider: Apr 05, 2020 Time Seen by Provider: 19:49 Initial Comments Edentulous patient with painful gums since he started chewing tobacco 2 months ago Timing/Duration: abrupt Severity: moderate Prearrival Treatment: no prearrival treatment Associated Symptoms: facial pain/swelling Allergies and Home Medications Allergies Coded Allergies: Penicillins (Verified Allergy, Unknown, 06/25/14) penicillin (Unverified Allergy, Unknown, 01/03/15) Home Medications Ciprofloxacin HCl/Dexameth 7.5 Ml Soln, 7.[address] 4 drops in the affected ear every 12 hours for seven days. Prescribed by: TOSHIA MANZANO on 03/05/202116 Docusate Sodium 100 Mg Capsule, 100 MG PO BID Prescribed by: RAMIREZ HARPER on 01/31/20 141 Hydrocortisone 28 Gm Cream..g., 28 GM TP BID Prescribed by: RAMIREZ HARPER on 01/31/20 141 Lidocaine 30 Gm Cream..g., 1 GM TP BID Prescribed by: RAMIREZ HARPER on 01/31/20 141 Prednisone 20 Mg Tab, 40 MG PO DAILY Prescribed by: RAMIREZ HARPER on 03/12/20 1042 Pseudoephedrine HCl 240 Mg Tab.er.24h, 240 MG PO DAILY Prescribed by: RAMIREZ HARPER on 03/12/20 1043 Trazodone Hcl 50 Mg Tablet, 100 MG PO HS, (Reported) TAKE 2 (50MG) TABS Patient Home Medication List Home Medication List Reviewed: Yes Review of Systems Review of Systems Constitutional: see HPI Eyes: No Symptoms Reported Ears: No Symptoms Reported Nose: no symptoms reported Mouth: see HPI Throat: no symptoms reported Respiratory: no symptoms reported Cardiovascular: no symptoms reported Musculoskeletal: no symptoms reported Past Cahgtcz-Heimzr-Ckooto Hx Patient Social History Alcohol Beverage of Choice: Beer Type Used: Cigarettes Former Smoker, Quit: Feb 21, 2020 2nd Hand Smoke Exposure: Yes (REPORTS QUITTING SMOKING TWO WEEKS AGO) Recent Foreign Travel: No Contact w/Someone Who Travel: No Past Medical History Surgeries: Yes (BILATERAL INGUINAL HERNIA REPAIRS, CATARACTS) Abdominal, Eye Surgery Respiratory: Yes Emphysema Cardiac: No Neurological: No Gastrointestinal: No Musculoskeletal: No Endocrine: No Cataract Cancer: No Psychosocial: Yes Sleep Difficulties Integumentary: No Blood Disorders: No Physical Exam Height, Weight, BMI Height: 6'0" Weight: 169lbs. oz. 76.734374me; 25.00 BMI Method:Stated General Appearance: WD/WN, no apparent distress Eyes: bilateral eye normal inspection, bilateral eye PERRL, bilateral eye EOMI Ears: bilateral ear auricle normal, bilateral ear canal normal, bilateral ear TM normal Mouth/Throat: pharynx normal, other (gingiva without ulceration or lesion) Neck: non-tender, full range of motion Respiratory: no respiratory distress, no accessory muscle use Neurologic/Psychiatric: alert, normal mood/affect, oriented x 3 Skin: normal color, warm/dry Departure Impression Primary Impression: Contact stomatitis Disposition: 01 HOME, SELF-CARE Condition: Stable Departure-Patient Inst. Decision time for Depature: 19:51 Referrals: [facility] (PCP) Primary Care Physician ABEBA WEST (Family) Primary Care Physician Patient Instructions: Mouth Sores RAMIREZ HARPER APRN Apr 05, 2020 19:52
[2020-04-05] MEDS ORDERED: LIDOCAINE 2% VISCOUS 15 ML UDC PO ONE (20:00)
[2020-04-05] MEDS ORDERED: ANTACID SUSP 30 ML UDC (MYLANTA) PO ONE (20:00)
== END 2020-04-05 20:02 | disposition home or self-care (01) ==
LOC: EDUNIT# 19:29 → ER 19:30
DX: K12.1 Other forms of stomatitis (principal); Z87.891 Personal history of nicotine dependence; Z79.52 Long term (current) use of systemic steroids; Z88.0 Allergy status to penicillin
CPT/HCPCS: 99283

== ENCOUNTER 2020-07-02 13:00 | Emergency (ER) | payer MEDICARE, MEDICAID ==
[~2020-07-02] VITALS: Ht 172.7 cm; Wt 77.1 kg
[2020-07-02 13:23] VITALS: BP 134/91
--- NOTE | 2020-07-02 13:43 | ED EENT ---
History of Present Illness General Chief Complaint: Ear Problems Stated Complaint: R EAR PAIN Nursing Triage Note: PT AMB TO TRIAGE WITH COMPLAINT OF RIGHT EAR PAIN. STATES STARTED YESTERDAY. History of Present Illness Date Seen by Provider: Jul 02, 2020 Time Seen by Provider: 13:25 Timing/Duration: gradual, this morning Location: ear (R) Prearrival Treatment: prescription meds (Sudafed and cetirizine) Allergies and Home Medications Allergies Coded Allergies: Penicillins (Verified Allergy, Unknown, 06/25/14) penicillin (Unverified Allergy, Unknown, 01/03/15) Home Medications Ciprofloxacin HCl/Dexameth 7.5 Ml Soln, 7.[address] 4 drops in the affected ear every 12 hours for seven days. Prescribed by: TOSHIA MANZANO on 03/05/202116 Docusate Sodium 100 Mg Capsule, 100 MG PO BID Prescribed by: RAMIREZ HARPER on 01/31/20 141 Hydrocortisone 28 Gm Cream..g., 28 GM TP BID Prescribed by: RAMIREZ HARPER on 01/31/20 141 Lidocaine 30 Gm Cream..g., 1 GM TP BID Prescribed by: RAMIREZ HARPER on 01/31/20 141 Prednisone 20 Mg Tab, 40 MG PO DAILY Prescribed by: RAMIREZ HARPER on 03/12/20 1042 Pseudoephedrine HCl 240 Mg Tab.er.24h, 240 MG PO DAILY Prescribed by: RAMIREZ HARPER on 03/12/20 1043 Trazodone Hcl 50 Mg Tablet, 100 MG PO HS, (Reported) TAKE 2 (50MG) TABS Patient Home Medication List Home Medication List Reviewed: Yes Review of Systems Review of Systems Constitutional: no symptoms reported, chills Ears: See HPI, Pain (right) All Other Systems Reviewed Negative Unless Noted: Yes Past Vgshyxt-Hwtpcg-Qmmxsv Hx Past Med/Social Hx: Reviewed Nursing Past Med/Soc Hx Patient Social History Alcohol Use: Occasionally Uses Number of Drinks Today: AA Alcohol Beverage of Choice: Beer Smoking Status: Current Someday Smoker Type Used: Cigarettes Former Smoker, Quit: Feb 21, 2020 2nd Hand Smoke Exposure: Yes Recent Infectious Disease Expo: No Immunizations Up To Date Tetanus Booster (TDap): Unknown Past Medical History Surgeries: Yes (BILATERAL INGUINAL HERNIA REPAIRS, CATARACTS) Abdominal, Eye Surgery Respiratory: Yes Emphysema Cardiac: No Neurological: No Gastrointestinal: No Musculoskeletal: No Endocrine: No Cataract Cancer: No Psychosocial: Yes Sleep Difficulties Integumentary: No Blood Disorders: No Physical Exam Vital Signs Vital Signs - First Documented 07/02/20 13:23 Pulse 91 Resp 20 B/P (MAP) 134/91 (105) Pulse Ox 99 O2 Delivery Room Air Height, Weight, BMI Height: 6'0" Weight: 169lbs. oz. 76.344849em; 25.00 BMI Method:Stated General Appearance: WD/WN, no apparent distress Eyes: bilateral eye normal inspection, bilateral eye PERRL, bilateral eye EOMI Ears: right ear TM bulging (clear); left ear TM normal; bilateral ear auricle normal, bilateral ear canal normal Nose: normal inspection; No discharge Mouth/Throat: normal mouth inspection, pharynx normal Neck: non-tender, full range of motion, supple, normal inspection; No lymphadenopathy (R), No lymphadenopathy (L) Cardiovascular: normal peripheral pulses, regular rate, rhythm Respiratory: chest non-tender, lungs clear, normal breath sounds, no respiratory distress, no accessory muscle use Neurologic/Psychiatric: no motor/sensory deficits, alert, normal mood/affect, oriented x 3 Skin: normal color, warm/dry Progress/Results/Core Measures Results/Orders My Orders Orders - ARA JONES Ibuprofen Tablet (Motrin Tablet) (07/02/20 13:46) Vital Signs/I&O 07/02/20 13:23 Pulse 91 Resp 20 B/P (MAP) 134/91 (105) Pulse Ox 99 O2 Delivery Room Air Blood Pressure Mean: 105 Departure Impression Primary Impression: Otitis media Qualified Codes: H66.90 - Otitis media, unspecified, unspecified ear Disposition: 01 HOME, SELF-CARE Condition: Improved Departure-Patient Inst. Decision time for Depature: 13:35 Referrals: [facility] (PCP) Primary Care Physician ABEBA WEST (Family) Primary Care Physician Patient Instructions: Ear Infection ED Add. Discharge Instructions: Alternate between ibuprofen 600 mg and Tylenol 650 mg every 4 hours for pain in the right ear. Continue to take the pseudojust and cetirizine as prescribed. Follow-up with your primary care provider at [facility] if symptoms are not improving or worsen. Return to the emergency department for new, urgent healthcare problems. All discharge instructions reviewed with patient and/or family. Voiced understanding. ARA JONES Jul 02, 2020 13:43
[2020-07-02] MEDS ORDERED: IBUPROFEN 800 MG (MOTRIN) TAB PO STA (13:46)
== END 2020-07-02 13:59 | disposition home or self-care (01) ==
LOC: EDUNIT# 13:00 → ER 13:02
DX: H66.91 Otitis media, unspecified, right ear (principal); F17.210 Nicotine dependence, cigarettes, uncomplicated; Z88.0 Allergy status to penicillin; Z79.52 Long term (current) use of systemic steroids
CPT/HCPCS: 99283

== ENCOUNTER 2020-12-05 14:27 | Emergency (ER) | payer MEDICARE, MEDICAID ==
[~2020-12-05] VITALS: Ht 172.7 cm; Wt 77.1 kg
[2020-12-05 14:35] VITALS: BP 148/88
--- NOTE | 2020-12-05 14:41 | ED Integumentary General ---
General Stated Complaint: POSSIBLE SPIDER BITE Source: patient Exam Limitations: no limitations History of Present Illness Date Seen by Provider: Dec 05, 2020 Time Seen by Provider: 14:39 Initial Comments With a possible spider bite over the olecranon process of the right elbow for 3 to 4 days. He did not see anything bite him. No systemic symptoms. Timing/Duration: constant Severity: mild Location: extremities Possible Cause: no cause identified Associated Symptoms: denies symptoms Allergies and Home Medications Allergies Coded Allergies: Penicillins (Verified Allergy, Unknown, 06/25/14) penicillin (Unverified Allergy, Unknown, 01/03/15) Home Medications Ciprofloxacin HCl/Dexameth 7.5 Ml Soln, 7.[address] 4 drops in the affected ear every 12 hours for seven days. Prescribed by: TOSHIA MANZANO on 03/05/202116 Docusate Sodium 100 Mg Capsule, 100 MG PO BID Prescribed by: RAMIREZ HARPER on 01/31/20 141 Hydrocortisone 28 Gm Cream..g., 28 GM TP BID Prescribed by: RAMIREZ HARPER on 01/31/20 141 Lidocaine 30 Gm Cream..g., 1 GM TP BID Prescribed by: RAMIREZ HARPER on 01/31/20 141 Prednisone 20 Mg Tab, 40 MG PO DAILY Prescribed by: RAMIREZ HARPER on 03/12/20 1042 Pseudoephedrine HCl 240 Mg Tab.er.24h, 240 MG PO DAILY Prescribed by: RAMIREZ HARPER on 03/12/20 1043 Trazodone Hcl 50 Mg Tablet, 100 MG PO HS, (Reported) TAKE 2 (50MG) TABS Patient Home Medication List Home Medication List Reviewed: Yes Review of Systems Review of Systems Constitutional: see HPI EENTM: see HPI Respiratory: no symptoms reported Cardiovascular: no symptoms reported Genitourinary: no symptoms reported Skin: see HPI Psychiatric/Neurological: No Symptoms Reported Endocrine: No Symptoms Reported Past Pdjatzz-Jwedix-Hyjbcg Hx Patient Social History Alcohol Beverage of Choice: Beer Type Used: Cigarettes Former Smoker, Quit: Feb 21, 2020 2nd Hand Smoke Exposure: Yes Immunizations Up To Date Tetanus Booster (TDap): Unknown Past Medical History Surgeries: Yes (BILATERAL INGUINAL HERNIA REPAIRS, CATARACTS) Abdominal, Eye Surgery Respiratory: Yes Emphysema Cardiac: No Neurological: No Gastrointestinal: No Musculoskeletal: No Endocrine: No Cataract Cancer: No Psychosocial: Yes Sleep Difficulties Integumentary: No Blood Disorders: No Physical Exam Vital Signs Capillary Refill : General Appearance: WD/WN, no apparent distress Respiratory: no respiratory distress, no accessory muscle use Neurologic/Psychiatric: alert, normal mood/affect, oriented x 3 Skin: normal color, warm/dry Skin Problem Location: other (There is a minute abrasion to the dorsal aspect of the right elbow with about 1 cm of surrounding erythema) Departure Impression Primary Impression: Scratch Disposition: HOME, SELF-CARE Condition: Stable Departure-Patient Inst. Decision time for Depature: 14:40 Referrals: [facility] (PCP) Primary Care Physician PATRICK BENSON APRN (Family) Primary Care Physician Patient Instructions: NO INSTRUCTIONS GIVEN Add. Discharge Instructions: Ointment twice a day. Return to ER for any concerns. RAMIREZ HARPER APRN Dec 05, 2020 14:41
[2020-12-05] MEDS ORDERED: MUPIROCIN 2% OINT 22 GM (BACTROBAN) TUBE ONE (14:59)
[2020-12-05] MEDS ORDERED: MUPIROCIN 2% OINT 22 GM (BACTROBAN) TUBE TOP SCH (21:00)
== END 2020-12-05 15:05 | disposition home or self-care (01) ==
LOC: EDUNIT# 14:27 → ER 14:30
DX: S50.311A Abrasion of right elbow, initial encounter (principal); J43.9 Emphysema, unspecified; Z87.891 Personal history of nicotine dependence; Z77.22 Contact with and (suspected) exposure to environmental tobacco smoke (acute) (chronic); Z79.52 Long term (current) use of systemic steroids; X58.XXXA Exposure to other specified factors, initial encounter
CPT/HCPCS: 99282

== ENCOUNTER 2021-06-11 14:42 | Emergency (ER) | payer MEDICARE, MEDICAID ==
[~2021-06-11] VITALS: Ht 170.2 cm; Wt 84.0 kg
[2021-06-11] MEDS ORDERED: FAMOTIDINE 20MG/2ML IV (PEPCID) IV STA (16:02)
[2021-06-11] MEDS ORDERED: diphenhydrAMINE 50 MG/ML INJ (BENADRYL) IV STA (16:02)
[2021-06-11] MEDS ORDERED: methylPREDNISolone 125 MG (Solu-MEDROL) VIAL IV STA (16:02)
[2021-06-11 16:13] LABS: BASOPHILS # (AUTO) 0.1 10^3/uL (0.0-0.1); BASOPHILS % (AUTO) 1 % (0-10); EOSINOPHILS # (AUTO) 0.2 10^3/uL (0.0-0.3); EOSINOPHILS % (AUTO) 3 % (0-10); HEMATOCRIT 44 % (40-54); HEMOGLOBIN 14.6 g/dL (13.3-17.7); LYMPHOCYTES # (AUTO) 1.4 10^3/uL (1.0-4.0); LYMPHOCYTES % (AUTO) 16 % (12-44); MEAN CORPUSCULAR HEMOGLOBIN 27 pg (25-34); MEAN CORPUSCULAR HGB CONC 33 g/dL (32-36); MEAN CORPUSCULAR VOLUME 80 fL (80-99); MEAN PLATELET VOLUME 9.2 fL (9.0-12.2); MONOCYTES # (AUTO) 0.9 10^3/uL (0.0-1.0); MONOCYTES % (AUTO) 11 % (0-12); NEUTROPHILS # (AUTO) 5.8 10^3/uL (1.8-7.8); NEUTROPHILS % (AUTO) 69 % (42-75); PLATELET COUNT 317 10^3/uL (130-400); WHITE BLOOD COUNT 8.5 10^3/uL (4.3-11.0)
[2021-06-11] MEDS ORDERED: RT-ALBUTEROL/IPRATROPIUM 3 ML (DUONEB) VIAL INH ONE ×2 (16:15→19:15)
[2021-06-11 16:32] LABS: FIBRIN DEGRADATION PRODUCTS 0.86 UG/ML (0.00-0.49); PROTHROMBIN TIME PATIENT 13.3 SEC (12.2-14.7)
[2021-06-11 16:33] LABS: ERYTHROCYTE SEDIMENTATION RATE 17 MM/HR (0-30)
[2021-06-11 16:36] LABS: ALBUMIN 3.7 GM/DL (3.2-4.5); CHLORIDE 97 MMOL/L (98-107)
[2021-06-11 16:37] LABS: SODIUM 132 MMOL/L (135-145)
[2021-06-11 16:38] LABS: CALCIUM 9.3 MG/DL (8.5-10.1)
[2021-06-11 16:39] LABS: GLUCOSE 102 MG/DL (70-105)
[2021-06-11 16:40] LABS: CARBON DIOXIDE 24 MMOL/L (21-32)
[2021-06-11 16:41] LABS: BILIRUBIN,TOTAL 0.6 MG/DL (0.1-1.0)
[2021-06-11 16:42] LABS: ALKALINE PHOSPHATASE 85 U/L (40-136)
[2021-06-11 16:43] LABS: CREATININE SERUM 0.81 MG/DL (0.60-1.30); GFR ESTIMATED 97
--- NOTE | 2021-06-11 16:43 | ED General ---
General Chief Complaint: Allergic Reaction Stated Complaint: RX REACTION X6 DAYS/FACIAL SWELLING/R ARM SWELLING Nursing Triage Note: PT AMB TO RM 7 W REPORTS OF RIGHT ARM SWELLING, NECK SWELLING, AND FACIAL SWELLING X1 WEEK. PT BELIEVES HE'S HAVING AN ALLERGIC REACTION TO CETIRIZINE HE WAS PRESCRIBED FOR AN EAR INFECTION HE WAS DX W ON 05/29/21 AT [facility]. PT A&OX4, DENIES PAIN AND ITCHING. Source of Information: Patient History of Present Illness Date Seen by Provider: Jun 11, 2021 Time Seen by Provider: 15:55 Initial Comments PT ARRIVES VIA POV FROM HOME C/O SWELLING TO FACE, ANTERIOR NECK AND ENTIRE RIGHT ARM FOR OVER A WEEK STATES HE WAS HAVING PAIN IN RIGHT EAR AND WENT TO [facility] ON 05/29/21 AND WAS PRESCRIBED ZYRTEC STATES HE LAST TOOK THEY ZYRTEC ON Saturday06/06/21 AND SWELLING HAS CONTINUED TO WORSEN NO PAIN NO RASH OR ITCHING NO DIFFICULTY BREATHING OR SWALLOWING OR TALKING NO CHEST PAIN NO CHANGE IN CHRONIC COUGH NO FEVER OR URI SYMPTOMS NO SORE THROAT HAS NOT SOUGHT CARE FOR THIS PROBLEM UNTIL TODAY, HAS NOT ATTEMPTED TO FOLLOW UP WITH [facility] AT ANY TIME HAS NOT TAKEN ANYTHING FOR SYMPTOMS HAS COPD, BUT HAS NOT USED INHALER FOR SEVERAL DAYS--DENIES ANY CHANGE IN BREATHING NO HISTORY OF SIMILAR PCP: [facility] Allergies and Home Medications Allergies Coded Allergies: Penicillins (Verified Allergy, Unknown, 06/25/14) melatonin (Verified Allergy, Unknown, 06/11/21) penicillin (Unverified Allergy, Unknown, 01/03/15) Patient Home Medication List Home Medication List Reviewed: Yes Ciprofloxacin HCl/Dexameth (Ciprodex Otic Suspension) 7.5 Ml Soln, 7.5 ML OT BID Prescribed by: TOSHIA MNAZANO on 03/05/202116 Docusate Sodium (Colace) 100 Mg Capsule, 100 MG PO BID Prescribed by: RAMIREZ HARPER on 01/31/20 141 Hydrocortisone (Cortizone-10 Plus) 28 Gm Cream..g., 28 GM TP BID Prescribed by: RAMIREZ HARPER on 01/31/20 141 Lidocaine (Lidocaine) 30 Gm Cream..g., 1 GM TP BID Prescribed by: RAMIREZ HARPER on 01/31/20 141 Prednisone (Prednisone) 20 Mg Tab, 40 MG PO DAILY Prescribed by: RAMIREZ HARPER on 03/12/20 1042 Pseudoephedrine HCl (Sudafed 24-Hour) 240 Mg Tab.er.24h, 240 MG PO DAILY Prescribed by: RAMIREZ HARPER on 03/12/20 1043 Trazodone Hcl (Trazodone Hcl) 50 Mg Tablet, 100 MG PO HS, (Reported) Entered as Reported by: VIRIDIANA CRISTINA on 06/23/14 0828 Review of Systems Review of Systems Constitutional: no symptoms reported; No chills, No diaphoresis, No dizziness, No fever EENTM: see HPI Respiratory: cough; No short of breath Cardiovascular: see HPI; No chest pain; edema; No palpitations, No syncope Gastrointestinal: no symptoms reported Genitourinary: no symptoms reported Musculoskeletal: see HPI Skin: no symptoms reported Psychiatric/Neurological: No Symptoms Reported Hematologic/Lymphatic: No Symptoms Reported Immunological/Allergic: no symptoms reported Past Xmghjkw-Hudccz-Dkvawj Hx Patient Social History Tobacco Use?: Yes Tobacco type used: Cigarettes Smoking Status: Current Everyday Smoker Use of E-Cig and/or Vaping dev: No Substance use?: No Alcohol Use?: Yes Alcohol Frequency: Daily Immunizations Up To Date Tetanus Booster (TDap): Unknown Influenza Vaccine Up-to-Date: Yes; Up-to-Date First/Initial COVID19 Vaccinat: 2020 Second COVID19 Vaccination Alexey: 2020 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[employer] Past Medical History Surgeries: Yes (BILATERAL INGUINAL HERNIA REPAIRS, CATARACTS) Abdominal, Eye Surgery Respiratory: Yes COPD, Emphysema Cardiac: Yes Hypertension Neurological: No Genitourinary: No Gastrointestinal: Yes (BILATERAL INGUINAL HERNIA REPAIRS) Musculoskeletal: No Endocrine: No HEENT: Yes Cataract Cancer: No Psychosocial: Yes Sleep Difficulties Integumentary: No Blood Disorders: No Family Medical History SOCIAL HISTORY: -SMOKES 1 1/2 PPD -ETOH--"30 PACK EVERY 3 DAYS" -DRUGS--DENIES USE Physical Exam Vital Signs Vital Signs - First Documented 06/11/21 15:50 Temp 36.2 Pulse 105 Resp 24 B/P (MAP) 142/93 (109) Pulse Ox 97 O2 Delivery Room Air Capillary Refill : Less Than 3 Seconds Height, Weight, BMI Height: 6'0" Weight: 169lbs. oz. 76.722211nc; 28.00 BMI Method:Stated General Appearance: No Apparent Distress, WD/WN, Other (SMILING, PLEASANT, TALKATIVE AND ABLE TO TALK IN FULL SENTENCES, BUT DOES APPEAR MILDLY DYSPNEIC. DOES NOT APPEAR TO BE IN ANY DISCOMFORT. DIRTY, UNKEMPT, MALODOROUS AND REEKS OF CIGARETTES) HEENT: PERRL/EOMI, Other (MODERATE SWELLING TO LOWER HALF OF FACE / EQUAL BILATERALLY) Neck: Other (SIGNIFICANT SWELLING TO ANTERIOR ASPECT OF NECK WITH SIGNIFICANT JVD BILATERALLY. UNABLE TO PALPATE ANY ADENOPATHY. ) Respiratory: Chest Non Tender; No Stridor; Wheezing (DIFFUSE EXPIRATORY WHEEZING BILATERALLY. ), Other (DIFFUSE EXPIRATORY WHEEZING BILATERALLY. SIGNIFICANT DUSKINESS FROM LOWER EDGE OF ANTERIOR CHEST UP TO ANTERIOR NECK WITH SIGNIFICANT AND EXTENSIVE SUPERFICIAL VARICOSITIES. ) Cardiovascular: Regular Rate, Rhythm, No Murmur Gastrointestinal: No Pulsatile Mass, Non Tender, Soft; No Hepatomegaly; Other (MARBLE-SIZED, HARD, NON-TENDER SUB Q NODULE TO RIGHT OF UMBILICUS. ) Back: No CVA Tenderness Extremity: Normal Capillary Refill, Normal Range of Motion, Non Tender, Other (SIGNIFICANT SWELLING TO ENTIRE RIGHT ARM. WITH SLIGHT ERYTHEMA. ) Neurologic/Psychiatric: Alert, Oriented x3, No Motor/Sensory Deficits, Normal Mood/Affect, stock blender II-XII Norm as Tested Skin: Warm/Dry Progress/Results/Core Measures Suspected Sepsis SIRS Temperature: Pulse: 105 Respiratory Rate: 24 Laboratory Tests 06/11/21 16:00: White Blood Count 8.5 Blood Pressure 142 /93 Mean: 109 Laboratory Tests 06/11/21 16:00: Creatinine 0.81, INR Comment 1.0, Platelet Count 317, Total Bilirubin 0.6 Results/Orders Lab Results Laboratory Tests Test 06/11/21 16:00 06/11/21 16:10 Range/Units White Blood Count 8.5 4.3-11.0 10^3/uL Red Blood Count 5.49 4.30-5.52 10^6/uL Hemoglobin 14.6 13.3-17.7 g/dL Hematocrit 44 40-54 % Mean Corpuscular Volume 80 80-99 fL Mean Corpuscular Hemoglobin 27 25-34 pg Mean Corpuscular Hemoglobin Concent 33 32-36 g/dL Red Cell Distribution Width 14.0 10.0-14.5 % Platelet Count 317 130-400 10^3/uL Mean Platelet Volume 9.2 9.0-12.2 fL Immature Granulocyte % (Auto) 1 % Neutrophils (%) (Auto) 69 42-75 % Lymphocytes (%) (Auto) 16 12-44 % Monocytes (%) (Auto) 11 0-12 % Eosinophils (%) (Auto) 3 0-10 % Basophils (%) (Auto) 1 0-10 % Neutrophils # (Auto) 5.8 1.8-7.8 10^3/uL Lymphocytes # (Auto) 1.4 1.0-4.0 10^3/uL Monocytes # (Auto) 0.9 0.0-1.0 10^3/uL Eosinophils # (Auto) 0.2 0.0-0.3 10^3/uL Basophils # (Auto) 0.1 0.0-0.1 10^3/uL Immature Granulocyte # (Auto) 0.1 0.0-0.1 10^3/uL Erythrocyte Sedimentation Rate 17 0-30 MM/HR Prothrombin Time 13.3 12.2-14.7 SEC INR Comment 1.0 0.8-1.4 Activated Partial Thromboplast Time 30 24-35 SEC D-Dimer 0.86 H 0.00-0.49 UG/ML Sodium Level 132 L 135-145 MMOL/L Potassium Level 4.0 3.6-5.0 MMOL/L Chloride Level 97 L 98-107 MMOL/L Carbon Dioxide Level 24 21-32 MMOL/L Anion Gap 11 5-14 MMOL/L Blood Urea Nitrogen 7 7-18 MG/DL Creatinine 0.81 0.60-1.30 MG/DL Estimat Glomerular Filtration Rate 97 BUN/Creatinine Ratio 9 Glucose Level 102 70-105 MG/DL Calcium Level 9.3 8.5-10.1 MG/DL Corrected Calcium 9.5 8.5-10.1 MG/DL Magnesium Level 2.1 1.6-2.4 MG/DL Total Bilirubin 0.6 0.1-1.0 MG/DL Aspartate Amino Transf (AST/SGOT) 18 5-34 U/L Alanine Aminotransferase (ALT/SGPT) 20 0-55 U/L Alkaline Phosphatase 85 40-136 U/L Total Creatine Kinase 73 30-200 U/L Creatine Kinase MB 2.0 <6.6 NG/ML Myoglobin 53.9 10.0-92.0 NG/ML Troponin I < 0.028 <0.028 NG/ML C-Reactive Protein High Sensitivity 1.87 H 0.00-0.50 MG/DL B-Type Natriuretic Peptide 14.2 <100.0 PG/ML Total Protein 8.0 6.4-8.2 GM/DL Albumin 3.7 3.2-4.5 GM/DL Influenza Type A (RT-PCR) Not Detected Not Detecte Influenza Type B (RT-PCR) Not Detected Not Detecte SARS-CoV-2 RNA (RT-PCR) Not Detected Not Detecte My Orders Orders - LEELA ANDREWS DO Ed Iv/Invasive Line Start (06/11/21 16:02) Monitor-Rhythm Ecg Trace Only (06/11/21 16:02) Chest 1 View, Ap/Pa Only (06/11/21 16:02) Bnp Home (06/11/21 16:02) Cbc With Automated Diff (06/11/21 16:02) Comprehensive Metabolic Panel (06/11/21 16:02) Creatine Kinase (06/11/21 16:02) Creatine Kinase Mb (06/11/21 16:02) Hs C Reactive Protein (06/11/21 16:02) Magnesium (06/11/21 16:02) Protime With Inr (06/11/21 16:02) Partial Thromboplastin Time (06/11/21 16:02) Erythrocyte Sedimentation Rate (06/11/21 16:02) Myoglobin Serum (06/11/21 16:02) Troponin I Home (06/11/21 16:02) Covid 19 Inhouse Test (06/11/21 16:02) Albuterol/Ipra Inhalation Soln (Duoneb I (06/11/21 16:15) Dexamethasone Injection (Decadron Injec (06/11/21 16:15) Rt Request For Service (06/11/21 16:02) Methylprednisolone Sod Succ (Solu-Medrol (06/11/21 16:02) Diphenhydramine Injection (Benadryl Inje (06/11/21 16:02) Famotidine Injection (Pepcid Injection) (06/11/21 16:02) Influenza A And B By Pcr (06/11/21 16:02) Isolation Central Supply Req (06/11/21 16:02) Svn Small Volume Nebulizer (06/11/21 16:02) Fibrin Degradation Products (06/11/21 16:02) Ct Angio Chest W (06/11/21 16:17) Ct Neck (Soft Tissue) W (06/11/21 16:17) Iohexol Injection (Omnipaque 350 Mg/Ml 1 (06/11/21 17:00) Received Contrast (Hold Metformin- Contr (06/11/21 17:00) Ns (Ivpb) (Sodium Chloride 0.9% Ivpb Bag (06/11/21 17:00) Ekg Tracing (06/11/21 16:54) Albuterol/Ipra Inhalation Soln (Duoneb I (06/11/21 19:15) Dexamethasone Injection (Decadron Injec (06/11/21 19:15) Svn Small Volume Nebulizer (06/11/21 19:02) Dexamethasone Injection (Decadron Inje (06/11/21 19:04) Medications Given in ED Vital Signs/I&O 06/11/21 06/11/21 06/11/21 15:50 19:15 20:47 Temp 36.2 Pulse 105 112 Resp 24 22 B/P (MAP) 142/93 (109) 150/96 Pulse Ox 97 97 98 O2 Delivery Room Air Room Air Room Air Capillary Refill : Less Than 3 Seconds Blood Pressure Mean: 109 Progress Note : Progress Note GIVEN SOLU-MEDROL, BENADRYL, PEPCID WITHOUT IMPROVEMENT IN SYMPTOMS O2 SATS 99% ON ROOM AIR NO DETERIORATION IN PT'S CONDITION DURING ER STAY UNABLE TO OBTAIN ULTRASOUND OF RIGHT ARM AT THIS TIME. ADVISED PT THAT FINDINGS ON CT ARE HIGHLY SUSPICIOUS FOR MALIGNANCY, AND HE APPEARS TO UNDERSTAND. ECG Initial ECG Impression Date: Jun 11, 2021 Initial ECG Impression Time: 16:56 Initial ECG Rate: 90 Initial ECG Rhythm: Normal Sinus Initial ECG Impression: Nonspecific Changes Diagnostic Imaging Comments CXR--PER RADIOLOGIST REPORT AT 1733 FINDINGS: There is a masslike area of opacification in the right upper lobe measuring 5.3 x 6.3 cm in size. There is convexity along the right mediastinal margin. The heart size is within normal limits. There is no identified pneumothorax. There is no large pleural effusion. There is no additional identified focal airspace consolidation. IMPRESSION: 1. Right upper lobe masslike opacity measuring 6.3 x 5.3 cm in size. This does raise concern for potential malignancy. Additional alveolar consolidative processes are in the differential diagnosis. CT chest with intravenous contrast is recommended for further assessment. 2. Convexity along the right mediastinal margin which potentially could reflect mediastinal adenopathy. This also should be further assessed with dedicated CT chest with intravenous contrast. CT NECK SOFT TISSUES--PER RADIOLOGIST REPORT AT 1755 FINDINGS: The partially visualized portions of the orbits are unremarkable. The bilateral parotid and submandibular glands are unremarkable in appearance. Unremarkable appearance of the thyroid gland. There is fairly symmetric soft tissue thickening adjacent to the airway at the level of the nasopharynx and vallecula. There is prominent narrowing of the airway near the level of the vocal cords on axial image 61 and adjacent sequential images. There is generalized subcutaneous edema at the level of the neck. There is a right-sided cervical lymph node on axial image 56 measuring 7 mm in short axis. This is a level IIB cervical lymph node. There is a right level IIA cervical lymph node measuring 10 mm in short axis on axial image 44. There is also a left level IIA cervical lymph node and axial image 43 which measures 8 mm in short axis. There are additional subcentimeter short axis cervical lymph nodes. Please see separately dictated CT chest report for findings within the thorax. There are multilevel degenerative changes of the spine. There is no identified aggressive bone lesion at the level of the cervical spine. IMPRESSION: 1. Please see separately dictated CT chest report for findings within the thorax. 2. Diffuse and symmetric soft tissue thickening along the airway at the level of the nasopharynx and vallecula as well as symmetric prominent narrowing of the airway near the level of the vocal cords. This is nonspecific. Malignant, infectious and inflammatory etiologies would be considered. 3. Somewhat prominent level IIA cervical lymph nodes, bilaterally, which are indeterminate. 4. Generalized subcutaneous edema at the level of the neck. CT CHEST ANGIOGRAM--PER RADIOLOGIST REPORT AT 1757 FINDINGS: There is a right upper lobe mass measuring approximately 6.1 x 4.0 cm in axial extent. This is directly extending into the right hilar region. There is confluent abnormal soft tissue attenuation in the right hilar region and right-sided mediastinum directly extending into the peritracheal location. There are very mild linear opacities in the right lower lobe and right middle lobe most consistent with very mild atelectasis. There is no additional identified pulmonary nodule or lung mass. There is complete opacification of right upper lobe bronchi. The mass is directly contacting the location of the superior vena cava. The superior vena cava appears very narrow in diameter on axial image 63 and adjacent sequential images. There are very high attenuation contrast filled collateral vessels likely relating to alteration of flow via the superior vena cava. 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 There is no additional identified mediastinal, hilar or axillary lymph node separate from the confluent abnormal right hilar, paramediastinal and paratracheal opacification. The heart is not enlarged. There is no pericardial effusion. There is distortion of right upper lobe pulmonary vessels relating to the mass. There is no identified pulmonary embolus. There is no pneumothorax. There is no pleural effusion. There is elevation of the right hemidiaphragm. Additional evaluation of the imaged portions of the upper abdomen is unremarkable. There are multilevel degenerative changes of the spine. There is a sclerotic lesion of the T2 vertebral body likely reflecting a bone metastasis on sagittal image 104. IMPRESSION: CT chest: 1. Large right upper lobe mass directly extending into the right hilar region, paratracheal location and the right-sided mediastinum highly likely reflecting malignancy. 2. Right superior mediastinal lymph node likely relating to additional site of metastatic josefina disease. 3. Prominent narrowing of the diameter of the superior vena cava with contrast filled collateral vessels. This likely reflects substantially decreased blood flow through the superior vena cava. 4. Elevation of the right hemidiaphragm. This potentially could reflect diaphragmatic paralysis. 5. Sclerotic lesion of the T2 vertebral body concerning for a bone metastasis. Reviewed: Reviewed by [facility] Departure Communication (Admissions) 1802--CALLED [facility]. RADIOLOGIC IMAGES CLOUDED TO THEM. THEY WILL CALL BACK. 1830--[facility] CALLED BACK. THEY ARE ON COMPLETE DIVERSION/NO BEDS AVAILABLE 1831--CALLED [facility] IN [place]. PAGING TRANFER PHYSICIAN 1838--SPOKE WITH DR. VALVERDE, TRANSFER PHYSICIAN. THEY DO NOT HAVE ANY BEDS AVAIILABLE. 1844--CALLED [facility]/[place]. NO BEDS AVAILABLE AT ANY OF THEIR FACILITIES. 1846--CALLED [facility]/[place]. ALL OF THEIR FACILITIES ARE ON COMPLETE DIVERSION, BUT WILL TRY TO ACCOMODATE. WILL CLOUD IMAGES TO [facility] AND THEY WILL TRY TO ACCOMODATE. HAVE PAGED THORACIC SURGEON. [facility] CONTACTED TO CLOUD IMAGES TO [facility] IN [place]. 1904--[facility] CALLED BACK, AND THEY HAVE DISCUSSED WITH CARDIO-THORACIC SURGEON, DR. LOPES, WHO WISHES PT TO BE TRANSFERRED THERE. HE WILL SEE PT IN CONSULT, AND ADMIT TO HOSPITALIST. SPOKE WITH DR. FLORES, HOSPITALIST, AND HE ACCEPTS PT FOR TRANSFER. Impression Primary Impression: Superior vena cava obstruction Additional Impressions: Mass of right lung Heavy smoker (more than 20 cigarettes per day) History of alcohol abuse COPD (chronic obstructive pulmonary disease) Disposition: 02 XFER SHT-TRM HOSP Condition: Stable Transfer Transfer Reason: Exceeds level of care Transfer Facility: [place], [place] Method of Transfer: Air Departure-Patient Inst. Referrals: [facility] (PCP) Primary Care Physician PATRICK BENSON APRN (Family) Primary Care Physician LEELA ANDREWS DO Jun 11, 2021 16:43
[2021-06-11 16:44] LABS: BUN/CREATININE RATIO 9
[2021-06-11 16:45] LABS: ALANINE AMINOTRANSFERASE 20 U/L (0-55); MAGNESIUM 2.1 MG/DL (1.6-2.4)
[2021-06-11 16:46] LABS: CREATINE KINASE 73 U/L (30-200)
[2021-06-11] MEDS ORDERED: IOHEXOL 350 MG/ML 100 ML (OMNIPAQUE 350) VIAL IV ONE (17:00)
[2021-06-11] MEDS ORDERED: HOLD METFORMIN - RECEIVED CONTRAST 20 ML VIAL IV SCH (17:00)
[2021-06-11] MEDS ORDERED: NS 100 ML (IVPB) BAG IV ONE (17:00)
--- NOTE | 2021-06-11 17:18 | Diagnostic Imaging Report ---
EXAMINATION: Chest radiograph, portable AP view. DATE: 06/11/2021 5:14 PM. INDICATION: 61-year-old male, dyspnea. COMPARISON: January 03, 2015. FINDINGS: There is a masslike area of opacification in the right upper lobe measuring 5.3 x 6.3 cm in size. There is convexity along the right mediastinal margin. The heart size is within normal limits. There is no identified pneumothorax. There is no large pleural effusion. There is no additional identified focal airspace consolidation. IMPRESSION: 1. Right upper lobe masslike opacity measuring 6.3 x 5.3 cm in size. This does raise concern for potential malignancy. Additional alveolar consolidative processes are in the differential diagnosis. CT chest with intravenous contrast is recommended for further assessment. 2. Convexity along the right mediastinal margin which potentially could reflect mediastinal adenopathy. This also should be further assessed with dedicated CT chest with intravenous contrast. Dictated by: Dictated on workstation # [id number]
--- NOTE | 2021-06-11 17:51 | Diagnostic Imaging Report ---
PROCEDURE: CT neck soft tissue with contrast. TECHNIQUE: Multiple contiguous axial images were obtained through the neck after the administration of contrast. Auto Exposure Controls were utilized during the CT exam to meet ALARA standards for radiation dose reduction. DATE: June 11, 2021. INDICATION: 61-year-old male, right arm and neck swelling. Facial swelling. COMPARISON: None available. FINDINGS: The partially visualized portions of the orbits are unremarkable. The bilateral parotid and submandibular glands are unremarkable in appearance. Unremarkable appearance of the thyroid gland. There is fairly symmetric soft tissue thickening adjacent to the airway at the level of the nasopharynx and vallecula. There is prominent narrowing of the airway near the level of the vocal cords on axial image 61 and adjacent sequential images. There is generalized subcutaneous edema at the level of the neck. There is a right-sided cervical lymph node on axial image 56 measuring 7 mm in short axis. This is a level IIB cervical lymph node. There is a right level IIA cervical lymph node measuring 10 mm in short axis on axial image 44. There is also a left level IIA cervical lymph node and axial image 43 which measures 8 mm in short axis. There are additional subcentimeter short axis cervical lymph nodes. Please see separately dictated CT chest report for findings within the thorax. There are multilevel degenerative changes of the spine. There is no identified aggressive bone lesion at the level of the cervical spine. IMPRESSION: 1. Please see separately dictated CT chest report for findings within the thorax. 2. Diffuse and symmetric soft tissue thickening along the airway at the level of the nasopharynx and vallecula as well as symmetric prominent narrowing of the airway near the level of the vocal cords. This is nonspecific. Malignant, infectious and inflammatory etiologies would be considered. 3. Somewhat prominent level IIA cervical lymph nodes, bilaterally, which are indeterminate. 4. Generalized subcutaneous edema at the level of the neck. Dictated by: Dictated on workstation # [id number]
--- NOTE | 2021-06-11 17:55 | Diagnostic Imaging Report ---
PROCEDURE: CT angiography of the chest with contrast. TECHNIQUE: Multiple contiguous axial images were obtained through the chest after uneventful bolus administration of intravenous contrast. 3D reconstructed CTA MIP acquisitions were also performed. Auto Exposure Controls were utilized during the CT exam to meet ALARA standards for radiation dose reduction. DATE: June 11, 2021. COMPARISON: Chest radiograph June 11, 2021. INDICATION: 61-year-old male, right arm and neck swelling. Lung mass seen on chest radiograph. FINDINGS: There is a right upper lobe mass measuring approximately 6.1 x 4.0 cm in axial extent. This is directly extending into the right hilar region. There is confluent abnormal soft tissue attenuation in the right hilar region and right-sided mediastinum directly extending into the peritracheal location. There are very mild linear opacities in the right lower lobe and right middle lobe most consistent with very mild atelectasis. There is no additional identified pulmonary nodule or lung mass. There is complete opacification of right upper lobe bronchi. The mass is directly contacting the location of the superior vena cava. The superior vena cava appears very narrow in diameter on axial image 63 and adjacent sequential images. There are very high attenuation contrast filled collateral vessels likely relating to alteration of flow via the superior vena cava. 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 There is no additional identified mediastinal, hilar or axillary lymph node separate from the confluent abnormal right hilar, paramediastinal and paratracheal opacification. The heart is not enlarged. There is no pericardial effusion. There is distortion of right upper lobe pulmonary vessels relating to the mass. There is no identified pulmonary embolus. There is no pneumothorax. There is no pleural effusion. There is elevation of the right hemidiaphragm. Additional evaluation of the imaged portions of the upper abdomen is unremarkable. There are multilevel degenerative changes of the spine. There is a sclerotic lesion of the T2 vertebral body likely reflecting a bone metastasis on sagittal image 104. IMPRESSION: CT chest: 1. Large right upper lobe mass directly extending into the right hilar region, paratracheal location and the right-sided mediastinum highly likely reflecting malignancy. 2. Right superior mediastinal lymph node likely relating to additional site of metastatic josefina disease. 3. Prominent narrowing of the diameter of the superior vena cava with contrast filled collateral vessels. This likely reflects substantially decreased blood flow through the superior vena cava. 4. Elevation of the right hemidiaphragm. This potentially could reflect diaphragmatic paralysis. 5. Sclerotic lesion of the T2 vertebral body concerning for a bone metastasis. Dictated by: Dictated on workstation # [id number]
[2021-06-11 20:47] VITALS: BP 150/96
== END 2021-06-11 20:47 | disposition short-term general hospital (02) ==
LOC: EDUNIT# 14:42 → ER 14:43
DX: I87.1 Compression of vein (principal); R91.8 Other nonspecific abnormal finding of lung field; I10 Essential (primary) hypertension; J43.9 Emphysema, unspecified; F17.210 Nicotine dependence, cigarettes, uncomplicated; Z20.822 Contact with and (suspected) exposure to COVID-19; Z88.0 Allergy status to penicillin
CPT/HCPCS: 36415; 70491; 71045; 71275; 80053; 82550; 82553; 83735; 83874; 83880; 84484; 85025; 85379; 85610; 85652; 85730; 86141; 87636; 93005; 93041; 94640

== ENCOUNTER 2021-06-17 22:25 | Inpatient (IN) | payer MEDICARE, MEDICAID ==
[~2021-06-17] VITALS: Ht 170 cm; Wt 85.6 kg
[2021-06-17 22:39] LABS: BASOPHILS % (AUTO) 0 % (0-10); EOSINOPHILS % (AUTO) 0 % (0-10); HEMATOCRIT 46 % (40-54); HEMOGLOBIN 15.4 g/dL (13.3-17.7); LYMPHOCYTES # (AUTO) 1.1 10^3/uL (1.0-4.0); LYMPHOCYTES % (AUTO) 6 % (12-44); MEAN CORPUSCULAR HEMOGLOBIN 27 pg (25-34); MEAN CORPUSCULAR HGB CONC 34 g/dL (32-36); MEAN CORPUSCULAR VOLUME 78 fL (80-99); MEAN PLATELET VOLUME 8.6 fL (9.0-12.2); MONOCYTES # (AUTO) 2.2 10^3/uL (0.0-1.0); MONOCYTES % (AUTO) 12 % (0-12); NEUTROPHILS # (AUTO) 14.3 10^3/uL (1.8-7.8); NEUTROPHILS % (AUTO) 80 % (42-75); PLATELET COUNT 354 10^3/uL (130-400)
[2021-06-17 22:42] VITALS: BP 171/128
[2021-06-17] MEDS ORDERED: RT-ALBUTEROL/IPRATROPIUM 3 ML (DUONEB) VIAL INH ONE (22:45)
[2021-06-17] MEDS ORDERED: RT-ALBUTEROL SULF 2.5 MG/3 ML PRE-MIX VIAL INH STA (22:47)
[2021-06-17 22:51] LABS: ALBUMIN 3.9 GM/DL (3.2-4.5)
[2021-06-17 22:52] LABS: POTASSIUM 3.8 MMOL/L (3.6-5.0)
[2021-06-17 22:53] LABS: CALCIUM 8.8 MG/DL (8.5-10.1)
[2021-06-17 22:56] LABS: BILIRUBIN,TOTAL 1.4 MG/DL (0.1-1.0)
[2021-06-17 22:58] VITALS: BP 158/104
[2021-06-17 22:58] LABS: CREATININE SERUM 0.85 MG/DL (0.60-1.30)
[2021-06-17] MEDS ORDERED: methylPREDNISolone 125 MG (Solu-MEDROL) VIAL IVP ONE (23:00)
--- NOTE | 2021-06-17 23:02 | ED Respiratory ---
General Chief Complaint: Respiratory Problems Stated Complaint: SOA Nursing Triage Note: BROUGHT IN BY [facility] FOR SOA TODAY. PT REPORTS BEING DC'D FROM [facility] TODAY. Source: patient, EMS, old records Exam Limitations: no limitations History of Present Illness Date Seen by Provider: Jun 17, 2021 Time Seen by Provider: 22:26 Initial Comments This 61-year-old gentleman presents to the emergency room with severe wheezing and shortness of breath via EMS. 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 Patient was transferred to [facility] in [place] on June 11. He had cardiothoracic consultation. No procedures w ere done there and he states he is not a surgical candidate. He has an understanding that he will be establishing with the [facility] in [place] to start radiation and/or chemotherapy. He does not know the results of his biopsies that were done in [place]. We are awaiting receipt of his records from [place]. I promptly addressed CODE STATUS with the patient, and he states a DNR/DNI status. He states his brother Chad is to be his DPOA should he be unable to make his own decisions. His daughters will be backup decision-makers. Allergies and Home Medications Allergies Coded Allergies: Penicillins (Verified Allergy, Unknown, 06/25/14) melatonin (Verified Allergy, Unknown, 06/11/21) penicillin (Unverified Allergy, Unknown, 01/03/15) Patient Home Medication List Home Medication List Reviewed: Yes Ciprofloxacin HCl/Dexameth (Ciprodex Otic Suspension) 7.5 Ml Soln, 7.5 ML OT BID Prescribed by: TOSHIA MANZANO on 03/05/202116 Docusate Sodium (Colace) 100 Mg Capsule, 100 MG PO BID Prescribed by: RAMIREZ HARPER on 01/31/20 141 Hydrocortisone (Cortizone-10 Plus) 28 Gm Cream..g., 28 GM TP BID Prescribed by: RAMIREZ HARPER on 01/31/20 141 Lidocaine (Lidocaine) 30 Gm Cream..g., 1 GM TP BID Prescribed by: RAMIREZ HARPER on 01/31/20 141 Prednisone (Prednisone) 20 Mg Tab, 40 MG PO DAILY Prescribed by: RAMIREZ HARPER on 03/12/20 1042 Pseudoephedrine HCl (Sudafed 24-Hour) 240 Mg Tab.er.24h, 240 MG PO DAILY Prescribed by: RAMIREZ HARPER on 03/12/20 1043 Trazodone Hcl (Trazodone Hcl) 50 Mg Tablet, 100 MG PO HS, (Reported) Entered as Reported by: VIRIDIANA CRISTINA on 06/23/14 0828 Review of Systems Review of Systems Constitutional: no symptoms reported EENTM: see HPI Respiratory: see HPI Cardiovascular: see HPI Gastrointestinal: no symptoms reported Genitourinary: no symptoms reported Musculoskeletal: see HPI Skin: no symptoms reported Psychiatric/Neurological: No Symptoms Reported Hematologic/Lymphatic: See HPI Immunological/Allergic: see HPI Past Tgulbrl-Culoko-Uyyovi Hx Patient Social History Tobacco Use?: Yes Tobacco type used: Cigarettes Substance use?: No Alcohol Use?: Yes Alcohol Frequency: Daily Pt feels they are or have been: No Immunizations Up To Date Tetanus Booster (TDap): Unknown First/Initial COVID19 Vaccinat: 2020 Second COVID19 Vaccination Alexey: 2020 COVID19 Vaccine Rate Clerk: LAXMI Past Medical History Surgery/Hospitalization HX: HTN, COPD, HERNIA REPAIR, RIGHT LUNG MASS, Surgeries: Yes (BILATERAL INGUINAL HERNIA REPAIRS, CATARACTS) Abdominal, Eye Surgery Respiratory: Yes COPD, Emphysema Cardiac: Yes (Superior vena cava obstruction) Hypertension Neurological: No Genitourinary: No Gastrointestinal: Yes (BILATERAL INGUINAL HERNIA REPAIRS) Musculoskeletal: Yes (Sclerotic lesion of T2) Endocrine: No HEENT: Yes Cataract Cancer: Yes (Large right upper lung mass with associated mediastinal lymphadenopathy) Did You Recieve Any Treatments: No Psychosocial: Yes Sleep Difficulties Integumentary: No Blood Disorders: No Family Medical History SOCIAL HISTORY: -SMOKES 06/18 PPD -ETOH--"30 PACK EVERY 3 DAYS" -DRUGS--DENIES USE Physical Exam Vital Signs - First Documented 06/17/21 22:26 Temp 36.0 Pulse 99 Resp 31 B/P (MAP) 171/128 (142) Pulse Ox 94 O2 Delivery OxyMask O2 Flow Rate 4.00 Capillary Refill : Less Than 3 Seconds Height: 6'0" Weight: 169lbs. oz. 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 Skin was anesthetized with lidocaine injection and a subcentimeter incision was made for placement of the trocar. Due to the extensive varicosities over the patient's chest, there was significant bleeding. This could not be controlled with pressure alone. Further injection with lidocaine with epinephrine was administered. This did successfully stop the bleeding. Skin was prepped again with chlorhexidine and the Thora vent catheter was inserted using trocar. Trocar advancement was halted when the pop into the pleural cavity was noted and confirmed with movement of the diaphragm. Patient was then taken off of BiPAP. Air was manually pumped out of the Thora vent through the one-way valve with a 60 mL syringe. Patient experienced marked improvement. Thora vent was fastened to the chest wall with the adhesive wings. Progress/Results/Core Measures Suspected Sepsis SIRS Temperature: Pulse: 96 Respiratory Rate: 24 Laboratory Tests 06/17/21 22:34: White Blood Count 18.0H Blood Pressure 171 /128 Mean: 142 Laboratory Tests 06/17/21 22:34: Creatinine 0.85, Platelet Count 354, Total Bilirubin 1.4H Results/Orders Lab Results Laboratory Tests Test 06/17/21 22:34 Range/Units White Blood Count 18.0 H 4.3-11.0 10^3/uL Red Blood Count 5.80 H 4.30-5.52 10^6/uL Hemoglobin 15.4 13.3-17.7 g/dL Hematocrit 46 40-54 % Mean Corpuscular Volume 78 L 80-99 fL Mean Corpuscular Hemoglobin 27 25-34 pg Mean Corpuscular Hemoglobin Concent 34 32-36 g/dL Red Cell Distribution Width 13.9 10.0-14.5 % Platelet Count 354 130-400 10^3/uL Mean Platelet Volume 8.6 L 9.0-12.2 fL Immature Granulocyte % (Auto) 2 % Neutrophils (%) (Auto) 80 H 42-75 % Lymphocytes (%) (Auto) 6 L 12-44 % Monocytes (%) (Auto) 12 0-12 % Eosinophils (%) (Auto) 0 0-10 % Basophils (%) (Auto) 0 0-10 % Neutrophils # (Auto) 14.3 H 1.8-7.8 10^3/uL Lymphocytes # (Auto) 1.1 1.0-4.0 10^3/uL Monocytes # (Auto) 2.2 H 0.0-1.0 10^3/uL Eosinophils # (Auto) 0.0 0.0-0.3 10^3/uL Basophils # (Auto) 0.0 0.0-0.1 10^3/uL Immature Granulocyte # (Auto) 0.3 H 0.0-0.1 10^3/uL Neutrophils % (Manual) 73 % Lymphocytes % (Manual) 8 % Monocytes % (Manual) 19 % Microcytosis SLIGHT Sodium Level 124 *L 135-145 MMOL/L Potassium Level 3.8 3.6-5.0 MMOL/L Chloride Level 90 L 98-107 MMOL/L Carbon Dioxide Level 22 21-32 MMOL/L Anion Gap 12 5-14 MMOL/L Blood Urea Nitrogen 24 H 7-18 MG/DL Creatinine 0.85 0.60-1.30 MG/DL Estimat Glomerular Filtration Rate 92 BUN/Creatinine Ratio 28 Glucose Level 119 H 70-105 MG/DL Calcium Level 8.8 8.5-10.1 MG/DL Corrected Calcium 8.9 8.5-10.1 MG/DL Total Bilirubin 1.4 H 0.1-1.0 MG/DL Aspartate Amino Transf (AST/SGOT) 43 H 5-34 U/L Alanine Aminotransferase (ALT/SGPT) 90 H 0-55 U/L Alkaline Phosphatase 73 40-136 U/L C-Reactive Protein High Sensitivity 0.82 H 0.00-0.50 MG/DL Total Protein 8.0 6.4-8.2 GM/DL Albumin 3.9 3.2-4.5 GM/DL My Orders Orders - ROSIE KHAN MD Cbc With Automated Diff (06/17/21 22:34) Comprehensive Metabolic Panel (06/17/21 22:34) Hs C Reactive Protein (06/17/21 22:34) Ed Iv/Invasive Line Start (06/17/21 22:34) Albuterol/Ipra Inhalation Soln (Duoneb I (06/17/21 22:45) Svn Small Volume Nebulizer (06/17/21 22:34) Code/Resuscitation (06/17/21 22:35) Manual Differential (06/17/21 22:34) Chest 1 View, Ap/Pa Only (06/17/21 22:42) Albuterol Pre-Mix Nebs (Rt) (Proventil (06/17/21 22:47) Svn Small Volume Nebulizer (06/17/21 22:47) Methylprednisolone Sod Succ (Solu-Medrol (06/17/21 23:00) Lidocaine 1% Inj 20 Ml (Xylocaine 1% Inj (06/17/21 23:15) Lidocaine 1% Inj 20 Ml (Xylocaine 1% Inj (06/17/21 23:14) Fentanyl Inj (Sublimaze Injection) (06/17/21 23:22) Lidocaine/Epi 2% 1:100,000 (Xylocaine/Ep (06/17/21 23:24) Chest 1 View, Ap/Pa Only (06/17/21 23:29) Medications Given in ED Current Medications Medications Dose Ordered Sig/Milo Route Start Time Stop Time Status Last Admin Dose Admin Albuterol/ Ipratropium 3 ml ONCE ONCE INH 06/17/21 22:45 06/17/21 22:46 DC 06/17/21 22:42 3 ML Fentanyl Citrate 100 mcg STK-MED ONCE .ROUTE 06/17/21 23:22 06/17/21 23:24 DC 06/17/21 23:26 50 MCG Lidocaine HCl 20 ml ONCE ONCE INJ 06/17/21 23:15 06/17/21 23:16 DC 06/17/21 23:18 20 ML Lidocaine/ Epinephrine 20 ml STK-MED ONCE .ROUTE 06/17/21 23:24 06/17/21 23:27 DC 06/17/21 23:27 20 ML Methylprednisolone Sodium Succinate 125 mg ONCE ONCE IVP 06/17/21 23:00 06/17/21 23:01 DC 06/17/21 23:03 125 MG Vital Signs/I&O 06/17/21 06/17/21 06/17/21 22:26 22:42 22:58 Temp 36.0 Pulse 99 96 91 Resp 31 24 24 B/P (MAP) 171/128 (142) Pulse Ox 94 99 99 O2 Delivery OxyMask O2 Flow Rate 4.00 40.00 40.00 Capillary Refill : Less Than 3 Seconds Blood Pressure Mean: 142 Progress Note : Time: 23:45 Progress Note BiPAP was promptly applied on patient arrival. He had prompt resuscitation of his respiratory status with BiPAP. A DuoNeb treatment was administered. He was trialed off of BiPAP briefly and repeat auscultation revealed poor air movement and tight wheezing although no distress as he presented with on arrival. BiPAP was then reapplied. Chest x-ray revealed a large right pneumothorax. BiPAP was again removed for fear of worsening pneumothorax. Patient was prepped for Thora vent placement. During prep he was not able to tolerate being off of BiPAP. BiPAP was reapplied at the lowest settings possible. Thora vent was inserted with complication of bleeding. Patient has extensive varicosities of the chest wall. This created significant bleeding when the cutdown incision was made. Lidocaine with epinephrine was then injected to help control the bleeding along with direct pressure. Once bleeding was controlled, the Thora vent was placed. He had immediate relief of shortness of breath. A large amount of air was pumped out with the use of the "bicycle pump" valve on the Thora vent. Repeat chest x-ray showed significant reduction in pneumothorax. Patient has been treated with Solu-Medrol 125 mg IV as well as fentanyl prior to the procedure. Breathing was comfortable with an oxygen saturation of 93% on room air after the procedure. I did consult with Dr. Martinez by phone prior to placing the Thora vent. He did not see any problems with placing a Thora vent given patient's current clinical scenario. He will be consulted for management of pneumothorax. Patient is being admitted to Dr. Goncalves to ICU. At patient's request he has a DNR/DNI. Patient was noted to have leukocytosis which is likely due to recent steroid use. Hyponatremia was also noted. Submaintenance normal saline will be run overnight to help correct the hyponatremia. We will run this slowly so as t o not exacerbate his facial and right upper extremity edema. Patient also completed a prolonged nebulizer treatment of 12.5 mg albuterol. Diagnostic Imaging Diagonstic Imaging: Xray Plain Films/CT/US/NM/MRI: chest Comments Chest x-ray viewed by me and report reviewed. See report below: NAME: GULSHAN LEACH [facility] REC#: [id number] PT STATUS: REG ER : 1960 PHYSICIAN: ROSIE KHAN MD ADMIT DATE: 06/17/21/ER Signed Date of Exam:06/17/21 CHEST 1 VIEW, AP/PA ONLY HISTORY: Shortness of air, wheezing, chest mass COMPARISON: 06/11/2021 FINDINGS: Frontal view of the chest demonstrates a moderate to large right pneumothorax with a large mass in the right upper lobe. The left lung is clear. There is no pleural effusion. The cardiac silhouette is normal in size. IMPRESSION: 1. Moderate to large right pneumothorax. 2. Persistent mass in the right upper lobe. Critical Finding: Pneumothorax Findings discussed with ROSIE KHAN MD by Dr. Kelly, on 06/17/2021 11:09 PM. Dictated by: Dictated on workstation # [id number] Dict: 06/17/21 2306 Trans: 06/17/21 2330 [facility] [id number] Interpreted by: RYANN KELLY MD Electronically signed by: RYANN KELLY MD 06/17/21 2330 Diagonstic Imaging: Xray Plain Films/CT/US/NM/MRI: chest Comments Chest x-ray viewed by me. Report not yet available. Significant reduction in the right pneumothorax after placement of Thora vent. Departure Communication (Admissions) Time/Spoke to Admitting Phy: 23:40 Dr. Goncalves Time/Spoke to Consulting Phy: 23:00 Dr. Martinez Impression Primary Impression: Pneumothorax, right Additional Impressions: COPD exacerbation Right lower lobe lung mass Superior vena cava obstruction Hyponatremia Disposition: ADMITTED INPATIENT Condition: Improved Admissions Decision to Admit Reason: Admit from ER (General) Decision to Admit/Date: Jun 17, 2021 Time/Decision to Admit Time: 22:30 Departure-Patient Inst. Referrals: [facility] (PCP) Primary Care Physician PATRICK BENSON APRN (Family) Primary Care Physician Copy Copies To 1: KELLIE COOMBS JOSHUA T MD Jun 17, 2021 23:02
[2021-06-17] MEDS ORDERED: LIDOCAINE 1% INJ 20 ML 20 ML VIAL ONE (23:14)
--- NOTE | 2021-06-17 23:14 | Diagnostic Imaging Report ---
HISTORY: Shortness of air, wheezing, chest mass COMPARISON: 06/11/2021 FINDINGS: Frontal view of the chest demonstrates a moderate to large right pneumothorax with a large mass in the right upper lobe. The left lung is clear. There is no pleural effusion. The cardiac silhouette is normal in size. IMPRESSION: 1. Moderate to large right pneumothorax. 2. Persistent mass in the right upper lobe. Critical Finding: Pneumothorax Findings discussed with ROSIE KHAN MD by Dr. Katz, on 06/17/2021 11:09 PM. Dictated by: Dictated on workstation # [id number]
[2021-06-17] MEDS ORDERED: LIDOCAINE 1% INJ 20 ML 20 ML VIAL INJ ONE (23:15)
[2021-06-17] MEDS ORDERED: fentaNYL INJ 100 MCG/2 ML AMP ONE (23:22)
[2021-06-17] MEDS ORDERED: LIDOCAINE/EPI 2% 1:100,00 (XYLOCAINE) 20 ML VIAL ONE (23:24)
[2021-06-17 23:34] LABS: LYMPHOCYTES % (MANUAL) 8 %; MICROCYTOSIS SLIGHT; MONOCYTES % (MANUAL) 19 %; NEUTROPHILS % (MANUAL) 73 %
--- NOTE | 2021-06-17 23:58 | Diagnostic Imaging Report ---
HISTORY: Thoravent placement, pneumothorax COMPARISON: Radiographs from the same day TECHNIQUE: Frontal view of the chest FINDINGS: There has been placement of a thoravent chest tube in the right lung. The pneumothorax has markedly improved. There may be minimal residual at the apex. The right upper lobe lung mass is stable. There is elevation of the right hemidiaphragm which is stable. The left lung is clear. The heart is normal in size. IMPRESSION: 1. Markedly improved right pneumothorax following chest tube placement. There may be minimal residual at the apex. 2. Stable right upper lobe lung mass. Dictated by: Dictated on workstation # [id number]
[2021-06-18] MEDS ORDERED: NS IV 1000 ML 1,000 ML ONE (00:21)
--- NOTE | 2021-06-18 00:23 | Tele-ICU Consult ---
History of Present Illness History of Present Illness Date Seen by Provider: Jun 18, 2021 Time Seen by Provider: 00:18 History of Present Illness 61 yo M came to ED with SOB, has probable Lung Ca with possible thoracic spine mets Found to have large right PMNTX, catheter placed with good improvment Pt in ICU for observation and continued Rx, on steroids, BD's Allergies and Home Medications Allergies Coded Allergies: Penicillins (Verified Allergy, Unknown, 06/25/14) melatonin (Verified Allergy, Unknown, 06/11/21) penicillin (Unverified Allergy, Unknown, 01/03/15) Home Medications Ciprofloxacin HCl/Dexameth 7.5 Ml Soln, 7.[address] 4 drops in the affected ear every 12 hours for seven days. Prescribed by: TOSHIA MANZANO on 03/05/202116 Docusate Sodium 100 Mg Capsule, 100 MG PO BID Prescribed by: RAMIREZ HARPER on 01/31/20 141 Hydrocortisone 28 Gm Cream..g., 28 GM TP BID Prescribed by: RAMIREZ HARPER on 01/31/20 141 Lidocaine 30 Gm Cream..g., 1 GM TP BID Prescribed by: RAMIREZ HARPER on 01/31/20 141 Prednisone 20 Mg Tab, 40 MG PO DAILY Prescribed by: RAMIREZ HARPER on 03/12/20 1042 Pseudoephedrine HCl 240 Mg Tab.er.24h, 240 MG PO DAILY Prescribed by: RAMIREZ HARPER on 03/12/20 1043 Trazodone Hcl 50 Mg Tablet, 100 MG PO HS, (Reported) TAKE 2 (50MG) TABS Past Medical/Social/Family Hx Patient Social History Tobacco Use?: Yes Tobacco type used: Cigarettes Substance use?: No Alcohol Use?: Yes Alcohol Frequency: Daily Pt stated abuse/neglect: No Immunizations Up To Date First/Initial COVID19 Vaccinat: 2020 Second COVID19 Vaccination Alexey: 2020 Tetanus Booster (TDap): Unknown Current Status Advance Directives: No Communicates: Verbally Primary Language: Mohawk Preferred Spoken Language: Mohawk Is interpretation needed?: No Family Medical History Family Hx: SOCIAL HISTORY: -SMOKES 1 1/2 PPD -ETOH--"30 PACK EVERY 3 DAYS" -DRUGS--DENIES USE Review of Systems Constitutional: see HPI Focused Exam Height, Weight, BMI Height: 6'0" Weight: 169lbs. oz. 76.569672va; 29.00 BMI Method:Stated Exam Exam Patient acknowledged, consented, and participated in this virtual visit which was conducted using real time audio/video Vital Signs Date Time Temp Pulse Resp B/P (MAP) Pulse Ox O2 Delivery O2 Flow Rate FiO2 06/18/21 00:01 36.2 89 14 149/92 93 Room Air 06/17/21 22:58 91 24 99 40.00 06/17/21 22:42 96 24 99 40.00 06/17/21 22:26 36.0 99 31 171/128 (142) 94 OxyMask 4.00 Height & Weight Height: 6'0" Weight: 169lbs. oz. 76.263019wb; 29.00 BMI Method:Stated General Appearance: No Apparent Distress Respiratory: Lungs Clear, Other (thora Vent on right) Cardiovascular: Regular Rate, Rhythm Capillary Refill: Less Than 3 Seconds Gastrointestinal: normal bowel sounds, non tender, soft Extremity: No Calf Tenderness Results Lab Laboratory Tests 06/17/21 22:34 Assessment/Plan Assessment/Plan possbile lung Ca with bony mets, right PMNTX, , continue lung suction Pool Mcadams MD Critical Care: Critically Ill Patient Time spent with patient (mins): 25 CLARKE MCADAMS MD Jun 18, 2021 00:23
[2021-06-18] MEDS ORDERED: fentaNYL INJ 100 MCG/2 ML AMP IV PRN (00:45)
[2021-06-18] MEDS ORDERED: ONDANSETRON 4 MG/2 ML (SDV) Z0FRAN IVP PRN ×2 (00:45→21:00)
[2021-06-18] MEDS ORDERED: LORazepam INJ 2 MG/ML (ATIVAN) VIAL IV PRN (00:45)
[2021-06-18] MEDS: NS IV 1000 ML 1,000 ML IV SCH ×2 (01:00→09:08)
[2021-06-18] MEDS: FAMOTIDINE 20MG/2ML IV (PEPCID) IVP SCH ×3 (01:00→20:57)
[2021-06-18] MEDS: RT-ALBUTEROL/IPRATROPIUM 3 ML (DUONEB) VIAL INH SCH ×4 (02:02→22:36)
[2021-06-18 04:45] LABS: BASOPHILS % (AUTO) 0 % (0-10); EOSINOPHILS % (AUTO) 0 % (0-10); HEMATOCRIT 42 % (40-54); HEMOGLOBIN 14.5 g/dL (13.3-17.7); LYMPHOCYTES # (AUTO) 0.3 10^3/uL (1.0-4.0); LYMPHOCYTES % (AUTO) 2 % (12-44); MEAN CORPUSCULAR HEMOGLOBIN 27 pg (25-34); MEAN CORPUSCULAR HGB CONC 35 g/dL (32-36); MEAN CORPUSCULAR VOLUME 78 fL (80-99); MEAN PLATELET VOLUME 8.9 fL (9.0-12.2); MONOCYTES # (AUTO) 0.4 10^3/uL (0.0-1.0); MONOCYTES % (AUTO) 4 % (0-12); NEUTROPHILS # (AUTO) 11.2 10^3/uL (1.8-7.8); NEUTROPHILS % (AUTO) 93 % (42-75); PLATELET COUNT 300 10^3/uL (130-400); WHITE BLOOD COUNT 12.1 10^3/uL (4.3-11.0)
[2021-06-18 05:02] LABS: ALBUMIN 3.4 GM/DL (3.2-4.5); POTASSIUM 3.9 MMOL/L (3.6-5.0)
[2021-06-18 05:03] LABS: CALCIUM 8.7 MG/DL (8.5-10.1)
[2021-06-18 05:04] LABS: TOTAL PROTEIN 7.1 GM/DL (6.4-8.2)
[2021-06-18 05:06] LABS: BILIRUBIN,TOTAL 1.4 MG/DL (0.1-1.0)
[2021-06-18 05:08] LABS: CREATININE SERUM 0.77 MG/DL (0.60-1.30); PHOSPHORUS 3.5 MG/DL (2.3-4.7)
[2021-06-18] MEDS ORDERED: MAGNESIUM 1 GM/100 ML IVPB 100 ML IV SCH (06:00)
[2021-06-18] MEDS ORDERED: POTASSIUM CL 10MEQ/50ML IVPB 50 ML IV SCH (06:00)
[2021-06-18] MEDS ORDERED: KCL 20 MEQ TAB (K-DUR) PO SCH (06:00)
--- NOTE | 2021-06-18 07:07 | Diagnostic Imaging Report ---
INDICATION: Right pneumothorax, follow-up Frontal chest obtained at 0326 a.m. and compared to yesterday. Small caliber right chest tube remains in place. There is no significant pleural fluid. There is no definite pneumothorax. Right apical lesion is unchanged. IMPRESSION: Small-caliber right chest tube remains in place with no pneumothorax. No change in right apical lesion. There is no new infiltrate. Dictated by: Dictated on workstation # [id number]
--- NOTE | 2021-06-18 07:23 | History & Physical-Hospitalist ---
History of Present Illness HPI/Chief Complaint CC: Right sided PTX s/p lung biopsy in [place] s/p thoravent placement HPI: This is a 61yoWM with h/o right lung mass s/p lung biopsy at [place] who presented to the ER with dyspnea and wheezing and was found to have a severe right sided PTX. Thoravent was placed with resolution of the PTX and improvement in oxygen status. Currently he is reporting feeling much better and we will move to 4th floor. Patient is a smoker and is a very poor historian. Hyponatremia is likely from a paraneoplastic process specifically lung neoplasm. Difficult to obtain any details. Patient is a DNR DNI. Source: patient, RN/MD Exam Limitations: other (por historian) Date Seen 06/18/21 Time Seen by a Provider: 11:00 Attending Physician April Goncalves DO [facility] [place] Referring Physician Date of Admission Jun 17, 2021 at 23:45 Home Medications & Allergies Home Medications Reviewed patient Home Medication Reconciliation performed by pharmacy medication reconciliations life science technician and/or nursing. Patients Allergies have been reviewed. Allergies Allergies Coded Allergies Penicillins (Verified Allergy, Unknown, 06/25/14) melatonin (Verified Allergy, Unknown, 06/11/21) penicillin (Unverified Allergy, Unknown, 01/03/15) Past Gkmizvv-Hkktjk-Pjeryy Hx Patient Social History Marrital Status: single Employed/Student: unemployed Tobacco Use?: Yes Tobacco type used: Cigarettes Smoking Status: Current Everyday Smoker Smokeless Tobacco Frequency: Never a User Use of E-Cig and/or Vaping Joseph: Never a User Substance use?: No Alcohol Use?: No Alcohol Frequency: Daily Additional Alcohol Comments: PAST HX ETOH-PT STATES LAST DRINK 01/2020 Pt feels they are or have been: No Immunizations Up To Date Date of Influenza Vaccine: Feb 16, 2021 First/Initial COVID19 Vaccinat: 2020 Second COVID19 Vaccination Alexey: 2020 Tetanus Booster (TDap): Unknown Current Status Advance Directives: No Communicates: Verbally Primary Language: Beninese Preferred Spoken Language: Beninese Is interpretation needed?: No Implanted or Applied Medical D: None Past Medical History Surgeries: Abdominal, Eye Surgery COPD, Emphysema Hypertension Cataract Did You Recieve Any Treatments: No Sleep Difficulties Blood Disorders: No Family Medical History SOCIAL HISTORY: -SMOKES 1 06/18 PPD -ETOH--"30 PACK EVERY 3 DAYS" -DRUGS--DENIES USE Review of Systems Constitutional: see HPI EENTM: no symptoms reported Respiratory: dyspnea on exertion Cardiovascular: no symptoms reported Gastrointestinal: no symptoms reported Genitourinary: no symptoms reported Musculoskeletal: no symptoms reported Skin: no symptoms reported Psychiatric/Neurological: No Symptoms Reported All Other Systems Reviewed Negative Unless Noted: Yes Physical Exam Physical Exam Vital Signs Vital Signs - First Documented 06/17/21 22:26 Temp 36.0 Pulse 99 Resp 31 B/P (MAP) 171/128 (142) Pulse Ox 94 O2 Delivery OxyMask O2 Flow Rate 4.00 Capillary Refill : Less Than 3 Seconds Height, Weight, BMI Height: 6'0" Weight: 169lbs. oz. 76.915628jh; 28.82 BMI Method:Stated General Appearance: No Apparent Distress, Anxious, Chronically ill Eyes: Right Eye Normal Inspection, Right Eye PERRL HEENT: PERRL/EOMI, Normal ENT Inspection, Pharynx Normal, Moist Mucous Mem branes Neck: Full Range of Motion, Normal Inspection, Non Tender Respiratory: Chest Non Tender, Lungs Clear, Normal Breath Sounds, No Accessory Muscle Use, No Respiratory Distress, Decreased Breath Sounds Cardiovascular: Regular Rate, Rhythm, No Edema, No Gallop, No JVD, No Murmur, Normal Peripheral Pulses Gastrointestinal: Normal Bowel Sounds, No Organomegaly, No Pulsatile Mass, Non Tender, Soft Back: Normal Inspection, No CVA Tenderness, No Vertebral Tenderness Extremity: Normal Capillary Refill, Normal Inspection, Normal Range of Motion, Non Tender, No Calf Tenderness, No Pedal Edema Neurologic/Psychiatric: Alert, Oriented x3, No Motor/Sensory Deficits, Normal Mood/Affect Skin: Normal Color, Warm/Dry Lymphatic: No Adenopathy Results Results/Procedures Labs Laboratory Tests 06/17/21 22:34 06/18/21 04:15 Patient resulted labs reviewed. Assessment/Plan Admission Diagnosis Assessment: Right sided PTX s/p thoravent placement COPD Smoker Lung cancer presumed s/p right upper lung mass biopsy in [place] Hyponatremia likely paraneoplastic Plan: [facility] Thoravent Surgery consult Lovenox IV steroids Admission Status: Inpatient Order (span 2 midnights) Reason for Inpatient Admission: PTX Diagnosis/Problems Diagnosis/Problems (1) Pneumothorax, right Status: Acute (2) Right lower lobe lung mass Status: Acute (3) COPD exacerbation Status: Acute APRIL GONCALVES DO Jun 18, 2021 07:23
--- NOTE | 2021-06-18 11:13 | Tele-ICU Progress Note ---
Subjective Date Seen by a Provider: Jun 18, 2021 Time Seen by a Provider: 09:15 Subjective/Events-last exam This virtual visit was conducted using real time audio/video. Thank you for asking us to see this patient for respiratory insufficiency due to R PTX with placement of Thoravent. Recent events: None overnight. PE: Resting comfortably. VSS. O2 sat 95% on RA HEENT: No obvious masses, adenopathy or JVD. Chest: clear to auscultation. CV: RRR S1 S2 No murmur or added sounds. Abd: Non-tender. Bowel sounds Y. : Unremarkable. Galvin N. 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 No obvious focal findings. Extremities: No edema. Capillary refill < 3 seconds. Skin: unremarkable. Results: Elevated WCC 12.1, BUN 21. CXR: RUL mass, R Thoravent, Elevated R hemidiaphragm. Available chart/ vitals / labs / images reviewed. Video assessment done using teleICU camera, rest of exam as per RN. A/P: Respiratory insufficiency: Continue present management with Thoravent per surgery. Monitor for increasing oxygenation needs and/or need for intubation. Critical Care: critically ill patient. Cont. Radha Craig. Discussed with RN Radha. Asked RN to reach out to eICU if any questions or concerns later. Time spent with patient/coordination of care with other health professionals (mins): 15 Sepsis Event Evaluation Height, Weight, BMI Height: 6'0" Weight: 169lbs. oz. 76.205907kv; 28.82 BMI Method:Stated Exam Exam Patient acknowledged, consented, and participated in this virtual visit which was conducted using real time audio/video Vital Signs Date Time Temp Pulse Resp B/P (MAP) Pulse Ox O2 Delivery O2 Flow Rate FiO2 06/18/21 10:00 70 27 113/81 95 Room Air 06/18/21 09:00 65 129/70 96 Room Air 06/18/21 08:39 94 Room Air 06/18/21 08:00 Room Air 06/18/21 08:00 37.1 06/18/21 08:00 64 99/59 94 Room Air 06/18/21 07:00 75 06/18/21 07:00 75 101/67 94 Room Air 06/18/21 06:00 75 101/64 94 Room Air 06/18/21 05:00 80 123/68 95 Room Air 06/18/21 04:00 79 24 118/65 94 Room Air 06/18/21 04:00 94 Room Air 06/18/21 04:00 37.1 06/18/21 03:00 79 17 122/69 93 Room Air 06/18/21 02:00 75 19 115/73 95 Room Air 06/18/21 01:30 79 17 94 Room Air 06/18/21 01:05 36.0 99 94 06/18/21 01:00 84 06/18/21 01:00 84 19 117/66 93 Room Air 06/18/21 00:45 92 16 92 Room Air 06/18/21 00:30 89 15 92 Room Air 06/18/21 00:15 88 15 142/91 92 Room Air 06/18/21 00:10 36.9 06/18/21 00:10 Room Air 06/18/21 00:01 36.2 89 14 149/92 93 Room Air 06/17/21 22:58 91 24 99 40.00 06/17/21 22:42 96 24 99 40.00 06/17/21 22:26 36.0 99 31 171/128 (142) 94 OxyMask 4.00 I & O 06/18/21 07:00 Intake Total 0 ml Output Total 850 ml Balance -850 ml Height & Weight Height: 6'0" Weight: 169lbs. oz. 76.928553sb; 28.82 BMI Method:Stated General Appearance: No Apparent Distress Respiratory: Lungs Clear, Other (thora Vent on right) Cardiovascular: Regular Rate, Rhythm Capillary Refill: Less Than 3 Seconds Peripheral Pulses: 1+ Dorsalis Pedis (R), 1+ Left Dors-Pedis (L) (See free text) Gastrointestinal: non tender, soft Extremity: No Calf Tenderness Results Lab Laboratory Tests 06/17/21 22:34 06/18/21 04:15 Assessment/Plan Assessment/Plan See free text. Critical Care: Critically Ill Patient ALEX GUTIERREZ MD Jun 18, 2021 11:13
--- NOTE | 2021-06-18 13:40 | Consultation - Surgery ---
MANOLO CHAWLA MED STUDENT 06/18/21 1340: History of Present Illness History of Present Illness Patient Consulted On(sheryl/time) 06/18/21 13:40 Date Seen by Provider: Jun 18, 2021 Time Seen by Provider: 13:00 History of Present Illness Per ED: This 61-year-old gentleman presents to the emergency room with severe wheezing and shortness of breath via EMS. 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 Patient was transferred to [facility] in [place] on June 11. He had cardiothoracic consultation. No procedures were done there and he states he is not a surgical candidate. He has an understanding that he will be establishing with the Cancer Center in [place] to start radiation and/or chemotherapy. He does not know the results of his biopsies that were done in [place]. We are awaiting receipt of his records from [place]. I promptly addressed CODE STATUS with the patient, and he states a DNR/DNI status. He states his brother Chad is to be his DPOA should he be unable to make his own decisions. His daughters will be backup decision-makers. Patient was laying in bed this morning. States that he is feeling decent. Not really having much pain. He is brathink okay, denies SOB. He is coughing up a bit of phlegm. He is eating and drinking without any nausea or vomiting. Has not had a BM. No problems with urination. Has not walked around since being admitted. CXR this morning shows no pneumothorax. Allergies and Home Medications Allergies Coded Allergies: Penicillins (Verified Allergy, Unknown, 06/25/14) melatonin (Verified Allergy, Unknown, 06/11/21) penicillin (Unverified Allergy, Unknown, 01/03/15) Patient Home Medication List Ciprofloxacin HCl/Dexameth (Ciprodex Otic Suspension) 7.5 Ml Soln, 7.5 ML OT BID Prescribed by: TOSHIA MANZANO on 03/05/202116 Docusate Sodium (Colace) 100 Mg Capsule, 100 MG PO BID Prescribed by: RAMIREZ HARPER on 01/31/20 1419 Hydrocortisone (Cortizone-10 Plus) 28 Gm Cream..g., 28 GM TP BID Prescribed by: RAMIREZ HARPER on 01/31/20 1419 Lidocaine (Lidocaine) 30 Gm Cream..g., 1 GM TP BID Prescribed by: RAMIREZ HARPER on 01/31/20 1419 Prednisone (Prednisone) 20 Mg Tab, 40 MG PO DAILY Prescribed by: RAMIREZ HARPER on 03/12/20 1042 Pseudoephedrine HCl (Sudafed 24-Hour) 240 Mg Tab.er.24h, 240 MG PO DAILY Prescribed by: RAMIREZ HARPER on 03/12/20 1043 Trazodone Hcl (Trazodone Hcl) 50 Mg Tablet, 100 MG PO HS, (Reported) Entered as Reported by: VIRIDIANA CRISTINA on 06/23/14 0828 Past Gphtetc-Phzbvs-Lpdtrx Hx Patient Social History Smoking Status: Current Everyday Smoker Former Smoker, Quit: Feb 21, 2020 Type Used: Cigarettes 2nd Hand Smoke Exposure: Yes Alcohol Use?: No Have you traveled recently?: No Immunizations Up To Date Tetanus Booster (TDap): Unknown Date of Influenza Vaccine: Feb 16, 2021 Surgeries History of Surgeries: Yes (BILATERAL INGUINAL HERNIA REPAIRS, CATARACTS) Surgeries: Abdominal, Eye Surgery Respiratory History of Respiratory Disorde: Yes Respiratory Disorders: COPD, Emphysema Cardiovascular 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) Cardiac Disorders: Hypertension Neurological History of Neurological Disord: No Genitourinary History of Genitourinary Disor: No Gastrointestinal History of Gastrointestinal Di: Yes (BILATERAL INGUINAL HERNIA REPAIRS) Musculoskeletal History of Musculoskeletal Dis: Yes (Sclerotic lesion of T2) Endocrine History of Endocrine Disorders: No HEENT History of HEENT Disorders: Yes HEENT Disorders: Cataract Cancer History of Cancer: Yes (Large right upper lung mass with associated mediastinal lymphadenopathy) Psychosocial History of Psychiatric Problem: Yes Behavioral Health Disorders: Sleep Difficulties Integumentary History of Skin or Integumenta: No Blood Transfusions History of Blood Disorders: No Family Medical History Significant Family History: Heart Disease (Father), Cancer (Lung), Diabetes Review of Systems-General Constitutional: No chills, No fever EENTM: No vision loss Respiratory: cough, phlegm; No short of breath, No wheezing; other (Thoravent in place) Cardiovascular: No chest pain, No edema, No palpitations Gastrointestinal: No abdominal pain, No constipation, No diarrhea, No dysphagia, No hematemesis, No melena, No nausea, No vomiting Genitourinary: No dysuria, No frequency, No hematuria Musculoskeletal: other (no foot or leg pain) Skin: No lesions, No rash Psychiatric/Neurological: Denies Headache Physical Exam-General Problems Physical Exam Vital Signs Vital Signs - First Documented 06/17/21 22:26 Temp 36.0 Pulse 99 Resp 31 B/P (MAP) 171/128 (142) Pulse Ox 94 O2 Delivery OxyMask O2 Flow Rate 4.00 Capillary Refill : Less Than 3 Seconds General Appearance: WD/WN, no apparent distress Eyes: Bilateral Eye PERRL, Bilateral Eye EOMI HEENT: pharynx normal (moist) Respiratory: chest non-tender, lungs clear, normal breath sounds (Deminished, no wheezing noted), no respiratory distress, no accessory muscle use, other (Thoravent in place, there is a small amount of serosanguinous fluid in it. ) Cardiovascular: regular rate, rhythm, no edema, no murmur Peripheral Pulses: 2+ Radial Pulses (R), 2+ Radial Pulses (L) Gastrointestinal: normal bowel sounds, non tender, soft Extremities: non-tender, no pedal edema, no calf tenderness, normal capillary refill Neurologic/Psychiatric: alert, normal mood/affect, oriented x 3 Skin: normal color, warm/dry Data Review Labs Laboratory Tests 06/17/21 22:34: White Blood Count 18.0H, Red Blood Count 5.80H, Hemoglobin 15.4, Hematocrit 46, Mean Corpuscular Volume 78L, Mean Corpuscular Hemoglobin 27, Mean Corpuscular Hemoglobin Concent 34, Red Cell Distribution Width 13.9, Platelet Count 354, Mean Platelet Volume 8.6L, Immature Granulocyte % (Auto) 2, Neutrophils (%) (Auto) 80H, Lymphocytes (%) (Auto) 6L, Monocytes (%) (Auto) 12, Eosinophils (%) (Auto) 0, Basophils (%) (Auto) 0, Neutrophils # (Auto) 14.3H, Lymphocytes # (Auto) 1.1, Monocytes # (Auto) 2.2H, Eosinophils # (Auto) 0.0, Basophils # (Auto) 0.0, Immature Granulocyte # (Auto) 0.3H, Neutrophils % (Manual) 73, Lymphocytes % (Manual) 8, Monocytes % (Manual) 19, Microcytosis SLIGHT, Sodium Level 124*L, Potassium Level 3.8, Chloride Level 90L, Carbon Dioxide Level 22, Anion Gap 12, Blood Urea Nitrogen 24H, Creatinine 0.85, Estimat Glomerular Filtration Rate 92, BUN/Creatinine Ratio 28, Glucose Level 119H, Calcium Level 8.8, Corrected Calcium 8.9, Total Bilirubin 1.4H, Aspartate Amino Transf (AST/SGOT) 43H, Alanine Aminotransferase (ALT/SGPT) 90H, Alkaline Phosphatase 73, C-Reactive Protein High Sensitivity 0.82H, Total Protein 8.0, Albumin 3.9 06/18/21 04:15: White Blood Count 12.1H, Red Blood Count 5.41, Hemoglobin 14.5, Hematocrit 42, Mean Corpuscular Volume 78L, Mean Corpuscular Hemoglobin 27, Mean Corpuscular Hemoglobin Concent 35, Red Cell Distribution Width 13.8, Platelet Count 300, Mean Platelet Volume 8.9L, Immature Granulocyte % (Auto) 1, Neutrophils (%) (Auto) 93H, Lymphocytes (%) (Auto) 2L, Monocytes (%) (Auto) 4, Eosinophils (%) (Auto) 0, Basophils (%) (Auto) 0, Neutrophils # (Auto) 11.2H, Lymphocytes # (Auto) 0.3L, Monocytes # (Auto) 0.4, Eosinophils # (Auto) 0.0, Basophils # (Auto) 0.0, Immature Granulocyte # (Auto) 0.2H, Sodium Level 126L, Potassium Level 3.9, Chloride Level 93L, Carbon Dioxide Level 22, Anion Gap 11, Blood Urea Nitrogen 21H, Creatinine 0.77, Estimat Glomerular Filtration Rate 103, BUN/Creatinine Ratio 27, Glucose Level 116H, Calcium Level 8.7, Corrected Calcium 9.2, Total Bilirubin 1.4H, Aspartate Amino Transf (AST/SGOT) 40H, Alanine Aminotransferase (ALT/SGPT) 82H, Alkaline Phosphatase 65, Total Protein 7.1, Albumin 3.4, Phosphorus Level 3.5, Magnesium Level 2.0 Radiology NAME: GULSHAN LEACH Jaimee [facility] REC#: [id number] PT STATUS: ADM IN : 1960 PHYSICIAN: JESSICA GALVEZ DO ADMIT DATE: 06/17/21/ICU Draft Date of Exam:06/18/21 CHEST 1 VIEW, AP/PA ONLY INDICATION: Right pneumothorax, follow-up Frontal chest obtained at 0326 a.m. and compared to yesterday. Small caliber right chest tube remains in place. There is no significant pleural fluid. There is no definite pneumothorax. Right apical lesion is unchanged. IMPRESSION: Small-caliber right chest tube remains in place with no pneumothorax. No change in right apical lesion. There is no new infiltrate. Dictated on workstation # [id number] Dict: 06/18/21 0552 Trans: 06/18/21 0706 [id number] Interpreted by: ALEJANDRA HOROWITZ MD Electronically signed by: Assessment/Plan Assessment/Plan Assessment/Plan Neoplasm of lung Pneumothorax Leukocytosis Hyponatremia Pt has thoravent in place. CXR this morning shows no pneumothorax. Will continue to check CXR to ensure to recurrence. Will leave thoravent in for now. Currently 94% on RA. He will be establishing with the cancer center due to his lung mass. Will continue to check WBCs on morning labs. 12 this morning. Not on any abx but can start if nescessary. He is also very hyponatremic, should be careful not to get too many fluids. Monitor with daily labs. No need for other surgical intervention at this time. MELISA MARIO DO 06/18/21 1442: History of Present Illness History of Present Illness Time Seen by Provider: 13:04 History of Present Illness Surgery asked to consult regarding PTX and CT managment. Pt states he is breathing better and is not on O2 when I walked in, satting at 93% on RA. He states his breathing is about the same as normal. Allergies and Home Medications Allergies Coded Allergies: Penicillins (Verified Allergy, Unknown, 06/25/14) melatonin (Verified Allergy, Unknown, 06/11/21) penicillin (Unverified Allergy, Unknown, 01/03/15) Patient Home Medication List Home Medication List Reviewed: Yes Ciprofloxacin HCl/Dexameth (Ciprodex Otic Suspension) 7.5 Ml Soln, 7.5 ML OT BID Prescribed by: TOSHIA MANZANO on 03/05/202116 Docusate Sodium (Colace) 100 Mg Capsule, 100 MG PO BID Prescribed by: RAMIREZ HARPER on 01/31/20 1419 Hydrocortisone (Cortizone-10 Plus) 28 Gm Cream..g., 28 GM TP BID Prescribed by: RAMIREZ HARPER on 01/31/20 1419 Lidocaine (Lidocaine) 30 Gm Cream..g., 1 GM TP BID Prescribed by: RAMIREZ HARPER on 01/31/20 1419 Prednisone (Prednisone) 20 Mg Tab, 40 MG PO DAILY Prescribed by: RAMIREZ HARPER on 03/12/20 1042 Pseudoephedrine HCl (Sudafed 24-Hour) 240 Mg Tab.er.24h, 240 MG PO DAILY Prescribed by: RAMIREZ HARPER on 03/12/20 1043 Trazodone Hcl (Trazodone Hcl) 50 Mg Tablet, 100 MG PO HS, (Reported) Entered as Reported by: VIRIDIANA CRISTINA on 06/23/14 0828 Past Gmlrbtg-Fcyxmb-Ctlogc Hx Patient Social History Smoking Status: Former Smoker Alcohol Use?: Yes Surgeries History of Surgeries: Yes Surgeries: Abdominal (b/l inguinal hernia), Eye Surgery (Cataract) Respiratory History of Respiratory Disorde: Yes Respiratory Disorders: COPD, Emphysema Cardiovascular History of Cardiac Disorders: Yes (Vena Cava Syndrome) Cardiac Disorders: Hypertension Neurological History of Neurological Disord: Yes (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) Genitourinary History of Genitourinary Disor: No Gastrointestinal History of Gastrointestinal Di: Yes Gastrointestinal Disorders: Abdominal Hernia 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) Endocrine History of Endocrine Disorders: No HEENT Loss of Vision: Denies Hearing Impairment: Denies Cancer History of Cancer: Yes Cancer: Lung Psychosocial History of Psychiatric Problem: No Family Medical History Significant Family History: Heart Disease (Father), Cancer (Lung), Diabetes Review of Systems-General Constitutional: No chills, No fever; weakness EENTM: throat swelling (and trouble swallowing); No vision loss, No mouth pain, No epistaxis Respiratory: cough, phlegm, short of breath, wheezing, other (Thoravent in place) Cardiovascular: No chest pain; edema; No palpitations Gastrointestinal: No abdominal pain, No constipation, No diarrhea, No dysphagia, No hematemesis, No melena, No nausea, No vomiting Genitourinary: No dysuria, No frequency, No hematuria Musculoskeletal: back pain, joint pain Skin: No lesions, No rash Psychiatric/Neurological: Denies Headache, Denies Seizure, Denies Tremors Physical Exam-General Problems Physical Exam General Appearance: WD/WN, mild distress Eyes: Bilateral Eye PERRL, Bilateral Eye EOMI HEENT: pharynx normal (moist); No scleral icterus (R), No scleral icterus (L) Neck: other (right side appears swollen with distended neck veins) Respiratory: chest non-tender, no respiratory distress, decreased breath sounds (right base), accessory muscle use, other (Thoravent in place, there is a small amount of serosanguinous fluid in it. ) Cardiovascular: regular rate, rhythm, no murmur Gastrointestinal: normal bowel sounds, non tender, soft, no organomegaly Extremities: no pedal edema, no calf tenderness, normal capillary refill, swelling (right upper extremity) Neurologic/Psychiatric: alert, oriented x 3 Skin: normal color, warm/dry Data Review Radiology Date of Exam:06/17/21 CHEST 1 VIEW, AP/PA ONLY HISTORY: Thoravent placement, pneumothorax COMPARISON: Radiographs from the same day TECHNIQUE: Frontal view of the chest FINDINGS: There has been placement of a thoravent chest tube in the right lung. The pneumothorax has markedly improved. There may be minimal residual at the apex. The right upper lobe lung mass is stable. There is elevation of the right hemidiaphragm which is stable. The left lung is clear. The heart is normal in size. IMPRESSION: 1. Markedly improved right pneumothorax following chest tube placement. There may be minimal residual at the apex. 2. Stable right upper lobe lung mass. Dictated by: Dictated on workstation # [id number] Dict: 06/17/21 2351 Trans: 06/18/21 0004 [facility] [id number] Interpreted by: RYANN KELLY MD Electronically signed by: RYANN KELLY MD 06/18/21 0004 Assessment/Plan Assessment/Plan Assessment/Plan Neoplasm of lung Pneumothorax Leukocytosis Hyponatremia Pt has thoravent in place. CXR this morning shows no pneumothorax; however, he does appear to have some blunting of costophrenic angle. Will continue to check CXR to ensure to recurrence. Will leave thoravent in for now. Currently 94% on RA. He will be establishing with the cancer center due to his lung mass. Will continue to check WBCs on morning labs. 12 this morning. Not on any abx but can start if nescessary. He is also very hyponatremic, should be careful not to get too many fluids. Monitor with daily labs. No need for other surgical intervention at this time. I reviewed all the CXRs and discussed care with physician. Supervisory-Addendum Brief Verification & Attestation Participated in pt care: history, MDM, physical Personally performed: exam, history, MDM, supervision of care Care discussed with: Medical Student Procedures: n/a Verification and Attestation of Medical Student E/M Service A medical student performed and documented this service. I then reviewed and verified all information documented by the medical student and made modifications to such information, when appropriate. I personally performed a physical exam, medical decision making and then discussed any differences between the notes and made revisions as necessary to create one note. Melisa Mario , 06/18/21 , 14:47 MANOLO CHAWLA MED STUDENT Jun 18, 2021 13:40 MELISA MARIO DO Jun 18, 2021 14:42
[2021-06-18] MEDS ORDERED: DOCUSATE SODIUM 100 MG (COLACE) CAP PO PRN (21:00)
[2021-06-18] MEDS ORDERED: CALCIUM CARBONATE 500 MG (TUMS) TAB.CHEW PO PRN (21:00)
[2021-06-18] MEDS ORDERED: HYDROcodone/APAP 5 MG/325 MG (LORTAB) TAB PO PRN (21:00)
[2021-06-18] MEDS ORDERED: ACETAMINOPHEN 500 MG TAB (TYLENOL) PO PRN (21:00)
[2021-06-18] MEDS ORDERED: LOPERAMIDE 2 MG (IMODIUM) TABLET PO PRN (21:00)
[2021-06-18] MEDS ORDERED: ONDANSETRON 4 MG (ZOFRAN) ORAL DISSOLVE TAB PO PRN (21:00)
[2021-06-18] MEDS ORDERED: cloNIDine 0.1 MG (CATAPRES) TAB PO PRN (21:15)
[2021-06-18] MEDS ORDERED: amLODIPine 5 MG (NORVASC) TAB PO ONE (21:15)
[2021-06-18] MEDS: methylPREDNISolone 40 MG/ML (Solu-MEDROL) VIAL IV SCH (22:02)
[2021-06-18] MEDS: polyethylene glycoL POWDER 17 GM (MIRALAX) PACK PO SCH (22:02)
[2021-06-18] MEDS: diphenhydrAMINE 25 MG TAB (BENADRYL) PO PRN (22:03)
[2021-06-18] MEDS: SENNA W/DOCUSATE (SENOKOT S) TABLET PO SCH (22:03)
[2021-06-18] MEDS: MONTELUKAST 10 MG (SINGULAIR) TAB PO SCH (22:03)
[2021-06-18] MEDS: ENOXAPARIN 40 MG/0.4 ML (LOVENOX) SYR SC SCH (22:03)
[2021-06-18] MEDS: ALPRAZolam 0.25 MG (XANAX) TAB PO PRN (23:53)
[2021-06-19] MEDS: RT-ALBUTEROL/IPRATROPIUM 3 ML (DUONEB) VIAL INH SCH ×4 (02:56→21:08)
[2021-06-19 05:23] LABS: BASOPHILS % (AUTO) 0 % (0-10); EOSINOPHILS % (AUTO) 0 % (0-10); HEMATOCRIT 43 % (40-54); HEMOGLOBIN 14.8 g/dL (13.3-17.7); LYMPHOCYTES # (AUTO) 0.4 10^3/uL (1.0-4.0); LYMPHOCYTES % (AUTO) 3 % (12-44); MEAN CORPUSCULAR HEMOGLOBIN 27 pg (25-34); MEAN CORPUSCULAR HGB CONC 35 g/dL (32-36); MEAN CORPUSCULAR VOLUME 77 fL (80-99); MEAN PLATELET VOLUME 8.8 fL (9.0-12.2); MONOCYTES # (AUTO) 0.6 10^3/uL (0.0-1.0); MONOCYTES % (AUTO) 4 % (0-12); NEUTROPHILS # (AUTO) 11.8 10^3/uL (1.8-7.8); NEUTROPHILS % (AUTO) 90 % (42-75); PLATELET COUNT 290 10^3/uL (130-400); WHITE BLOOD COUNT 13.1 10^3/uL (4.3-11.0)
[2021-06-19 05:33] LABS: ALBUMIN 3.4 GM/DL (3.2-4.5)
[2021-06-19 05:34] LABS: POTASSIUM 4.1 MMOL/L (3.6-5.0)
[2021-06-19 05:35] LABS: CALCIUM 8.8 MG/DL (8.5-10.1)
[2021-06-19 05:36] LABS: TOTAL PROTEIN 7.2 GM/DL (6.4-8.2)
[2021-06-19 05:38] LABS: BILIRUBIN,TOTAL 1.8 MG/DL (0.1-1.0)
[2021-06-19 05:40] LABS: CREATININE SERUM 0.75 MG/DL (0.60-1.30)
--- NOTE | 2021-06-19 08:14 | Progress Note - Surgery ---
MANOLO CHAWLA MED STUDENT 06/19/21 0814: Subjective Date Seen by a Provider: Jun 19, 2021 Time Seen by a Provider: 06:55 Subjective/Events-last exam Mr Del Rio is laying in bed this morning. States he is not having any pain this morning. He is breathing okay, feeling like he is wheezing a little bit. Is eating and drinking with no nausea or vomiting. LBM was a couple days ago, no problems with urination. He has been being kept in bed, has not been ambulating. Wants to know when he will start treatment. There is some more serous fluid in his Thoravent this morning. Review of Systems General: No Chills HEENT: No Head Aches, No Visual Changes Pulmonary: No Dyspnea, No Cough, No Pleuritic Chest Pain; Other (slight wheeze, thoravent) Cardiovascular: No: Chest Pain, Palpitations Gastrointestinal: Constipation; No: Nausea, Vomiting, Abdominal Pain, Diarrhea, Melena Genitourinary: No Dysuria, No Incontinence, No Hematuria Musculoskeletal: No: leg pain, foot pain Objective Exam Vital Signs Date Time Temp Pulse Resp B/P (MAP) Pulse Ox O2 Delivery O2 Flow Rate FiO2 06/19/21 03:49 36.6 06/19/21 03:06 80 15 115/71 93 Room Air 06/19/21 02:57 93 Room Air 06/18/21 23:42 36.6 06/18/21 23:01 86 17 153/95 92 Room Air 06/18/21 22:36 94 Room Air 06/18/21 21:00 93 Room Air 06/18/21 20:41 93 18 134/86 94 Room Air 06/18/21 19:58 37.3 103 22 155/88 93 Room Air 06/18/21 16:00 93 142/83 94 Room Air 06/18/21 15:35 36.9 98 95 Room Air 06/18/21 15:00 103 156/94 95 Room Air 06/18/21 14:23 96 Room Air 06/18/21 14:00 75 161/90 94 Room Air 06/18/21 13:00 81 143/84 93 Room Air 06/18/21 12:55 77 06/18/21 12:00 84 149/75 95 Room Air 06/18/21 12:00 37.2 06/18/21 11:53 Room Air 06/18/21 11:00 71 136/92 94 Room Air 06/18/21 10:00 70 27 113/81 95 Room Air 06/18/21 09:00 65 129/70 96 Room Air 06/18/21 08:39 94 Room Air I & O 06/19/21 07:00 Intake Total 3365 ml Output Total 2857 ml Balance 508 ml Capillary Refill : Less Than 3 Seconds General Appearance: No Apparent Distress, WD/WN, Chronically ill HEENT: PERRL/EOMI, Pharynx Normal, Moist Mucous Membranes Respiratory: Chest Non Tender, Lungs Clear, Normal Breath Sounds, No Accessory Muscle Use, No Respiratory Distress, Decreased Breath Sounds, Other (Thoravent in place, there is some serous fluid inside, more than yesterday. ) Cardiovascular: Regular Rate, Rhythm, No Edema, No Murmur, Normal Peripheral Pulses Peripheral Pulses: 2+ Radial Pulses (R), 2+ Radial Pulses (L) Gastrointestinal: normal bowel sounds, non tender, soft, no organomegaly Extremity: Normal Capillary Refill, Non Tender, No Calf Tenderness, No Pedal E eyad Neurologic/Psychiatric: Alert, Oriented x3, Normal Mood/Affect Skin: Normal Color, Warm/Dry Lymphatic: No Adenopathy Results Lab Laboratory Tests 06/19/21 04:42: White Blood Count 13.1H, Red Blood Count 5.51, Hemoglobin 14.8, Hematocrit 43, Mean Corpuscular Volume 77L, Mean Corpuscular Hemoglobin 27, Mean Corpuscular Hemoglobin Concent 35, Red Cell Distribution Width 14.0, Platelet Count 290, Mean Platelet Volume 8.8L, Immature Granulocyte % (Auto) 3, Neutrophils (%) (Auto) 90H, Lymphocytes (%) (Auto) 3L, Monocytes (%) (Auto) 4, Eosinophils (%) (Auto) 0, Basophils (%) (Auto) 0, Neutrophils # (Auto) 11.8H, Lymphocytes # (Auto) 0.4L, Monocytes # (Auto) 0.6, Eosinophils # (Auto) 0.0, Basophils # (Auto) 0.0, Immature Granulocyte # (Auto) 0.3H, Sodium Level 124*L, Potassium Level 4.1, Chloride Level 95L, Carbon Dioxide Level 20L, Anion Gap 9, Blood Urea Nitrogen 18, Creatinine 0.75, Estimat Glomerular Filtration Rate 106, BUN/Creatinine Ratio 24, Glucose Level 128H, Calcium Level 8.8, Corrected Calcium 9.3, Total Bilirubin 1.8H, Aspartate Amino Transf (AST/SGOT) 38H, Alanine Aminotransferase (ALT/SGPT) 96H, Alkaline Phosphatase 67, Total Protein 7.2, Albumin 3.4 Assessment/Plan Assessment/Plan Assessment/Plan Neoplasm of lung Pneumothorax Leukocytosis Hyponatremia Thoravent is in place, there is a little more fluid in it this morning than there was yesterday. No new CXR to check for pneumothorax. Pt is breathing okay today, states he has a little bit of wheeze. Continue to leave thoravent in for now. Was 93% on RA this morning. He will be establishing with the cancer center due to his lung mass. Will continue to check WBCs on morning labs. 13 this morning. Not on any abx but can start if nescessary. He is also very hyponatremic, should be careful not to get too many fluids. Monitor with daily labs. No need for other surgical intervention at this time. DONOVAN MARTINEZ DO 06/19/21 1356: Subjective Time Seen by a Provider: 10:57 Subjective/Events-last exam Pt seen and examined, no new complaints and states he is still breathing ok. Review of Systems General: No Chills HEENT: No Head Aches, No Visual Changes Pulmonary: No Dyspnea, No Cough; Other (slight wheeze, thoravent) Cardiovascular: No: Chest Pain, Palpitations Gastrointestinal: No: Nausea, Vomiting, Abdominal Pain Objective Exam General Appearance: No Apparent Distress, Chronically ill HEENT: PERRL/EOMI, Moist Mucous Membranes Respiratory: No Respiratory Distress, Accessory Muscle Use, Decreased Breath Sounds (right base), Other (Thoravent in place, there is some serous fluid inside, more than yesterday. ) Cardiovascular: Regular Rate, Rhythm, No Murmur Gastrointestinal: non tender, soft, no organomegaly Assessment/Plan Assessment/Plan Assessment/Plan Neoplasm of lung Pneumothorax Leukocytosis Hyponatremia Thoravent is in place, there is a little more fluid in it this morning than there was yesterday. Will order CXR to check for pneumothorax for am 1/4. Pt is breathing okay today, states he has a little bit of wheeze. Continue to leave thoravent in for now. Was 93% on RA this morning. He will be establishing with the cancer center due to his lung mass. Will continue to check WBCs on morning labs. 13 this morning. Not on any abx but can start if nescessary. He is also very hyponatremic, should be careful not to get too many fluids. Monitor with daily labs. No need for other surgical intervention at this time. Supervisory-Addendum Brief Verification & Attestation Participated in pt care: history, MDM, physical Personally performed: exam, history, MDM, supervision of care Care discussed with: Medical Student Procedures: n/a Verification and Attestation of Medical Student E/M Service A medical student performed and documented this service. I then reviewed and verified all information documented by the medical student and made modifications to such information, when appropriate. I personally performed a physical exam, medical decision making and then discussed any differences between the notes and made revisions as necessary to create one note. Donovan Martinez , 06/19/21 , 13:56 MANOLO CHAWLA MED STUDENT Jun 19, 2021 08:14 DONOVAN MARTINEZ DO Jun 19, 2021 13:56
[2021-06-19] MEDS: methylPREDNISolone 40 MG/ML (Solu-MEDROL) VIAL IV SCH ×2 (08:16→20:44)
[2021-06-19] MEDS: polyethylene glycoL POWDER 17 GM (MIRALAX) PACK PO SCH ×2 (08:16→20:31)
[2021-06-19] MEDS: SENNA W/DOCUSATE (SENOKOT S) TABLET PO SCH ×2 (08:16→20:31)
[2021-06-19] MEDS: FAMOTIDINE 20MG/2ML IV (PEPCID) IVP SCH ×2 (08:16→20:32)
[2021-06-19] MEDS: amLODIPine 5 MG (NORVASC) TAB PO SCH (08:17)
[2021-06-19] MEDS ORDERED: DIPH50LI26 PO (09:43)
[2021-06-19] MEDS ORDERED: FURO20TA4 PO (09:43)
[2021-06-19] MEDS ORDERED: AMLO-250 PO (09:43)
[2021-06-19] MEDS ORDERED: BUDE10.22 INH (09:43)
--- NOTE | 2021-06-19 09:53 | Progress Note ---
Subjective Subjective/Events-last exam States he is dizzy with coughing, breathing much better than before admission. Would like something for sleep states that what he got last night he got good sleep last night Objective Exam Last Set of Vital Signs Vital Signs Date Time Temp Pulse Resp B/P (MAP) Pulse Ox O2 Delivery O2 Flow Rate FiO2 06/19/21 08:17 101 15 132/86 92 Room Air 06/19/21 08:00 36.7 06/17/21 22:58 40.00 Capillary Refill : Less Than 3 Seconds I&O Intake and Output 06/19/21 00:00 Intake Total 3265 ml Output Total 2807 ml Balance 458 ml Intake Oral 1965 ml IV Total 1300 ml Output Urine Total 2800 ml Chest Tube Drainage Total 7 ml Daily Weight Change No General: Alert, No Acute Distress Lungs: Other (chest tube in place) Heart: Regular Rate, No Murmurs Abdomen: Normal Bowel Sounds Psych/Mental Status: Mood NL Results/Procedures Lab Laboratory Tests 06/19/21 04:42: White Blood Count 13.1H, Red Blood Count 5.51, Hemoglobin 14.8, Hematocrit 43, Mean Corpuscular Volume 77L, Mean Corpuscular Hemoglobin 27, Mean Corpuscular Hemoglobin Concent 35, Red Cell Distribution Width 14.0, Platelet Count 290, Mean Platelet Volume 8.8L, Immature Granulocyte % (Auto) 3, Neutrophils (%) (Auto) 90H, Lymphocytes (%) (Auto) 3L, Monocytes (%) (Auto) 4, Eosinophils (%) (Auto) 0, Basophils (%) (Auto) 0, Neutrophils # (Auto) 11.8H, Lymphocytes # (Auto) 0.4L, Monocytes # (Auto) 0.6, Eosinophils # (Auto) 0.0, Basophils # (Auto) 0.0, Immature Granulocyte # (Auto) 0.3H, Sodium Level 124*L, Potassium Level 4.1, Chloride Level 95L, Carbon Dioxide Level 20L, Anion Gap 9, Blood Urea Nitrogen 18, Creatinine 0.75, Estimat Glomerular Filtration Rate 106, BUN/Creatinine Ratio 24, Glucose Level 128H, Calcium Level 8.8, Corrected Calcium 9.3, Total Bilirubin 1.8H, Aspartate Amino Transf (AST/SGOT) 38H, Alanine Aminotransferase (ALT/SGPT) 96H, Alkaline Phosphatase 67, Total Protein 7.2, Albumin 3.4 Radiology Date of Exam:06/17/21 CHEST 1 VIEW, AP/PA ONLY HISTORY: Thoravent placement, pneumothorax COMPARISON: Radiographs from the same day TECHNIQUE: Frontal view of the chest FINDINGS: There has been placement of a thoravent chest tube in the right lung. The pneumothorax has markedly improved. There may be minimal residual at the apex. The right upper lobe lung mass is stable. There is elevation of the right hemidiaphragm which is stable. The left lung is clear. The heart is normal in size. IMPRESSION: 1. Markedly improved right pneumothorax following chest tube placement. There may be minimal residual at the apex. 2. Stable right upper lobe lung mass. Dictated by: Dictated on workstation # [id number] Dict: 06/17/21 2351 Trans: 06/18/21 0004 [facility] [id number] Interpreted by: RYANN KELLY MD Electronically signed by: RYANN KELLY MD 06/18/21 0004 Assessment/Plan Assessment/Plan (1) Pneumothorax, right Status: Acute Assessment & Plan: after lung mass biopsy. s/p Thoravent placement in ER. Repeat CXR with resolution. Appreciate Surgery recommendations. (2) Mass of right lung Status: Acute Assessment & Plan: Transferred to [facility] on 06/11 due to large RUL mass extending into right hilar lesion, paratracheal and right sided mediastinum with narrowing of SVC and likely mets to lymph nodes and T2. Records not available, pt recalls only that he isnt a candidate for surgery but doesn't know results or plan other than that he was to see Oncology locally. 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 (6) DVT prophylaxis Status: Acute Assessment & Plan: Enoxaparin HERLINDA NDIAYE MD Jun 19, 2021 09:53
--- NOTE | 2021-06-19 10:09 | Tele-ICU Progress Note ---
Subjective Date Seen by a Provider: Jun 19, 2021 Time Seen by a Provider: 10:08 Sepsis Event Evaluation Height, Weight, BMI Height: 6'0" Weight: 169lbs. oz. 76.045394qx; 28.82 BMI Method:Stated Exam Exam Patient acknowledged, consented, and participated in this virtual visit which was conducted using real time audio/video Vital Signs Date Time Temp Pulse Resp B/P (MAP) Pulse Ox O2 Delivery O2 Flow Rate FiO2 06/19/21 08:17 101 15 132/86 92 Room Air 06/19/21 08:00 36.7 06/19/21 07:00 83 06/19/21 03:49 36.6 06/19/21 03:06 80 15 115/71 93 Room Air 06/19/21 02:57 93 Room Air 06/18/21 23:42 36.6 06/18/21 23:01 86 17 153/95 92 Room Air 06/18/21 22:36 94 Room Air 06/18/21 21:00 93 Room Air 06/18/21 20:41 93 18 134/86 94 Room Air 06/18/21 19:58 37.3 103 22 155/88 93 Room Air 06/18/21 16:00 93 142/83 94 Room Air 06/18/21 15:35 36.9 98 95 Room Air 06/18/21 15:00 103 156/94 95 Room Air 06/18/21 14:23 96 Room Air 06/18/21 14:00 75 161/90 94 Room Air 06/18/21 13:00 81 143/84 93 Room Air 06/18/21 12:55 77 06/18/21 12:00 84 149/75 95 Room Air 06/18/21 12:00 37.2 06/18/21 11:53 Room Air 06/18/21 11:00 71 136/92 94 Room Air I & O 06/19/21 07:00 Intake Total 3365 ml Output Total 2857 ml Balance 508 ml Height & Weight Height: 6'0" Weight: 169lbs. oz. 76.110049sp; 28.82 BMI Method:Stated General Appearance: No Apparent Distress, WD/WN, Chronically ill HEENT: PERRL/EOMI, Pharynx Normal, Moist Mucous Membranes Respiratory: Chest Non Tender, Lungs Clear, Normal Breath Sounds, No Accessory Muscle Use, No Respiratory Distress, Decreased Breath Sounds, Other (Thoravent in place, there is some serous fluid inside, more than yesterday. ) Cardiovascular: Regular Rate, Rhythm, No Edema, No Murmur, Normal Peripheral Pulses Capillary Refill: Less Than 3 Seconds Peripheral Pulses: 2+ Radial Pulses (R), 2+ Radial Pulses (L) Gastrointestinal: normal bowel sounds, non tender, soft, no organomegaly Extremity: Normal Capillary Refill, Non Tender, No Calf Tenderness, No Pedal Edema Neurologic/Psychiatric: Alert, Oriented x3, Normal Mood/Affect Skin: Normal Color, Warm/Dry Lymphatic: No Adenopathy Results Lab Laboratory Tests 06/17/21 22:34 06/18/21 04:15 06/19/21 04:42 RAMIN KESSLER MD Jun 19, 2021 10:09
[2021-06-19] MEDS: ALPRAZolam 0.25 MG (XANAX) TAB PO PRN (13:01)
--- NOTE | 2021-06-19 14:23 | Consultation ---
History of Present Illness History of Present Illness Patient Consulted On(alexey/time) 06/19/21 11:00 a.m. Date Seen by Provider: Jun 19, 2021 Time Seen by Provider: 11:00 Reason for Visit: (1) SVC syndrome (2) RUL lung mass History of Present Illness *Mr. Del Rio is a 61 y/o white male [place], [place] resident with COPD and a long history of smoking. *He presented to [facility] ER on 06/11/21 with right arm, neck and facial swelling x 1 week that he attributed to an allergic reaction to Zyrtec that he was given for an ear infection. -CXR noted a masslike area of opacification in the RUL meauring 5.3 x 6.3 cm. -CT neck soft tissue: Diffuese and symmetric soft tissue thickening along the airway at the level of the nasopharynx and vallecula as well as symmetric prominent narrowing of the airway near the level of the vocal cords. Somewhat prominent level IIA cervical lymph nodes, bilaterally, which are indeterminate. Generalized subcutaneous edema at the level of the neck. -CT chest angiogram: There is a RUL mass measuring approximately 6.1 x 4.0 cm. This extends directly into the right hilar region. There is confluent abnormal soft tissue attenuation in the right hilar region and right-sided mediastinum directly extending into the peritracheal location. Right superior mediastinal lymph node likely relating to additional site of metastatic josefina disease. Prominent narrowing of the diameter of the superior vena cava with contrast filled collateral vessels. Elevation of the right hemidiaphragm. Sclerotic lesion of the T2 vertebral body concerning for bone metastasis. -Due to patient's needs exceeding available level of care at [facility] transfer was recommended. [facility] and [facility] were on diversion. [facility] accepted pt. He was lifeflighted there. *While there he underwent a CT guided lung biopsy on 06/13/21 and an MRI brain w/wo the same day. -MRI brain: Tiny enhancing or peripherally enhancing lesions including near the right caudate, and within the left temporal lobe anteriorly and posteriorly as well as in the left occipital lobe. These measure up to maximally 6 mm in size. One of the lesions does demonstrate diffusion restriction which could relate to hypercellularity of the lesion. Multiple metastatic lesions would be the favored differential diagnostic consideration. *06/15/21 [facility] radiation oncology department received a call from [facility] rad onc Dr. Boom Calzada. -They are attempting to discharge pt home. Reported patient's status as stable on medications. - Explained lung biopsy performed. He believed the pathology to be non-small cell, but written report not back. -Thoracic surgeon consult - not a surgical candidate. -Patient also has brain metastases. -Would like rad onc appt for Saturday06/19/21. Time given for 8:00 a.m. *06/17/21 Patient presented to [facility] ER via EMS with severe wheezing and shortness of breath. -patient code status DNR/DNI with brother Chad to be his DPOA -CXR noted large right pneumothorax. -Thora vent catheter was placed in ER. He had immediate relief of shortness of breath. "Due to the extensive varicosities over the patient's chest, there was significant bleeding." -Significant reduction in the right pneumothorax noted on post Thora vent placement. -Labs noted hyponatremia. -Dr. Goncalves and Dr. Martinez contacted. -Patient admitted for further evaluation and management. Allergies and Home Medications Allergies Coded Allergies: Penicillins (Verified Allergy, Unknown, 06/25/14) melatonin (Verified Allergy, Unknown, 06/11/21) penicillin (Unverified Allergy, Unknown, 01/03/15) Patient Home Medication List Home Medication List Reviewed: Yes Amlodipine Besylate (Amlodipine Besylate) 5 Mg Tablet, 5 MG PO DAILY, (Reported) Entered as Reported by: ALEXANDRA CAMPOS on 06/19/21942 Last Action: Reviewed Budesonide/Formoterol Fumarate (Symbicort 80-4.5 Mcg Inhaler) 10.2 Gm Hfa.aer.ad, 1-2 PUFF INH DAILY PRN for SHORTNESS OF BREATH, (Reported) Entered as Reported by: ALEXANDRA CAMPOS on 06/19/21942 Last Action: Reviewed Diphenhydramine HCl (Sleep Aid) 50 Mg/30 Ml Liquid, 50 MG PO HS PRN for SLEEP, (Reported) Entered as Reported by: ALEXANDRA CAMPOS on 06/19/21942 Last Action: Reviewed Furosemide (Furosemide) 20 Mg Tablet, 20 MG PO DAILY PRN for SHORTNESS OF BREATH/EDEMA, (Reported) Entered as Reported by: ALEXANDRA CAMPOS on 06/19/21 0943 Last Action: Reviewed Discontinued Medications Ciprofloxacin HCl/Dexameth (Ciprodex Otic Suspension) 7.5 Ml Soln, 7.5 ML OT BID Discontinued Reason: No Longer Taking Prescribed by: TOSHIA MANZANO on 03/05/202116 Last Action: Discontinued Docusate Sodium (Colace) 100 Mg Capsule, 100 MG PO BID Discontinued Reason: No Longer Taking Prescribed by: RAMIREZ HARPER on 01/31/201418 Last Action: Discontinued Hydrocortisone (Cortizone-10 Plus) 28 Gm Cream..g., 28 GM TP BID Discontinued Reason: No Longer Taking Prescribed by: RAMIREZ HARPER on 01/31/201418 Last Action: Discontinued Lidocaine (Lidocaine) 30 Gm Cream..g., 1 GM TP BID Discontinued Reason: No Longer Taking Prescribed by: RAMIREZ HARPER on 01/31/201418 Last Action: Discontinued Prednisone (Prednisone) 20 Mg Tab, 40 MG PO DAILY Discontinued Reason: No Longer Taking Prescribed by: RAMIREZ HARPER on 03/12/20 1042 Last Action: Discontinued Pseudoephedrine HCl (Sudafed 24-Hour) 240 Mg Tab.er.24h, 240 MG PO DAILY Discontinued Reason: No Longer Taking Prescribed by: RAMIREZ HARPER on 03/12/20 1043 Last Action: Discontinued Trazodone Hcl (Trazodone Hcl) 50 Mg Tablet, 100 MG PO HS, (Reported) Discontinued Reason: No Longer Taking Entered as Reported by: VIRIDIANA CRISTINA on 06/23/14 0828 Last Action: Discontinued Past Xbhlcry-Jndrao-Xrjjfv Hx Patient Social History Tobacco Use?: Yes Tobacco type used: Cigarettes Smoking Status: Former Smoker (reports he quit last week after lung mass found) Smokeless Tobacco Frequency: Never a User Use of E-Cig and/or Vaping Joseph: Never a User Substance use?: No Alcohol Use?: Yes Alcohol Frequency: Daily Pt feels they are or have been: No Immunizations Up To Date Tetanus Booster (TDap): Unknown Influenza Vaccine Up-to-Date: Yes; Up-to-Date First/Initial COVID19 Vaccinat: 2020 Second COVID19 Vaccination Alexey: 2020 Third COVID19 Vaccination Date: 2020 COVID19 Vaccine [employer]: LAXMI Past Medical History Surgery/Hospitalization HX: HTN, COPD, HERNIA REPAIR, RIGHT LUNG MASS, CT guided lung biopsy 07/14/20 Surgeries: Yes Abdominal (b/l inguinal hernia), Eye Surgery (Cataract) Respiratory: Yes COPD, Emphysema Cardiac: Yes (Vena Cava Syndrome) Hypertension Neurological: Yes (brain mets) 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) Genitourinary: No Gastrointestinal: Yes Abdominal Hernia Musculoskeletal: Yes (spinal metastasis) Endocrine: No HEENT: Yes Cataract Loss of Vision: Denies Hearing Impairment: Denies Cancer: Yes Lung Did You Recieve Any Treatments: No Psychosocial: No Sleep Difficulties Integumentary: No Blood Disorders: No Family Medical History Heart Disease (Father), Cancer (Lung), Diabetes SOCIAL HISTORY: -SMOKES 1 06/18 PPD -ETOH--"30 PACK EVERY 3 DAYS" -DRUGS--DENIES USE Review of Systems-General Constitutional: weight loss EENTM: other (noted facial and neck swelling for approx 2 weeks) Respiratory: cough, phlegm (greenish/thick), short of breath (while sitting up he feels ok on room air; has some SOA when lying flat) Gastrointestinal: no symptoms reported Genitourinary: no symptoms reported Musculoskeletal: no symptoms reported Skin: other (upper chest swelling with blood vessels ) Psychiatric/Neurological: Anxiety (when having difficulty breathing) All Other Systems Reviewed Negative Unless Noted: Yes Physical Exam-General Problems Physical Exam Vital Signs Vital Signs - First Documented 06/17/21 22:26 Temp 36.0 Pulse 99 Resp 31 B/P (MAP) 171/128 (142) Pulse Ox 94 O2 Delivery OxyMask O2 Flow Rate 4.00 Capillary Refill : Less Than 3 Seconds General Appearance: WD/WN, no apparent distress Eyes: Bilateral Eye Normal Inspection HEENT: other (facial swelling) Neck: non-tender, other (neck swelling with jugular distention) Respiratory: no respiratory distress (at rest and while sitting up), other (Thora vent apparatus right upper chest with serous drainage) Extremities: normal range of motion, non-tender, swelling (right arm swelling n oted - left arm wnl) Neurologic/Psychiatric: alert, normal mood/affect, oriented x 3 Skin: warm/dry, other (upper chest swelling with varicosities beginning at the neck and extending to below the nipple level) Assessment/Plan Assessment/Plan Admission Diagnosis/Plan Diagnosis: 1) SVC syndrome with RUL lung mass 2) biopsy results pending (have been given a verbal diagnosis of NSC) 3) brain metastases Discussion/Recommendation/Plan: 1) Patient offered a three week course of lung xrt to palliate his symptoms from his lung lesion causing SVC syndrome -we will attempt to deliver 45 Gy / 15 fractions per NCCN guidelines -will start with 3D conformal AP/PA to get treatment started HALEY; may change to VMAT 2) reviewed patient images with Dr. Ramirez diagnostic radiology with regards to the patient's brain MRI - we could count at least six to seven very small lesions - this includes the three noted in the body of the written report plus the new ones with intense scrutiny one can see, if we had looked longer we might have found more -therefore will switch from SRS to whole brain xrt, 3000 cGy / 10 fractions 3) The acute toxicities / side effects, terminal operator complications, logistics, and hoped for benefit were explained to patient. 4) Patient willing to proceed. 5) A treatment planning lung ct simulation followed by his first lung treatment to be performed today. 6) We will do a brain ct simulation and possibly repeat lung ct sim later in the week. 7) Plan to treat brain concurrently with lung. STEPHAINE FISHER MD Jun 19, 2021 14:23
[2021-06-19] MEDS: MONTELUKAST 10 MG (SINGULAIR) TAB PO SCH (20:31)
[2021-06-19] MEDS: ENOXAPARIN 40 MG/0.4 ML (LOVENOX) SYR SC SCH (20:31)
[2021-06-19] MEDS: RT--FLUTICASONE/SALMETEROL 113-14 (AIRDUO RespiCLICK) IH SCH (21:08)
[2021-06-20] MEDS: RT-ALBUTEROL/IPRATROPIUM 3 ML (DUONEB) VIAL INH SCH ×4 (02:16→21:21)
[2021-06-20 06:07] LABS: BASOPHILS % (AUTO) 0 % (0-10); EOSINOPHILS % (AUTO) 0 % (0-10); HEMATOCRIT 43 % (40-54); LYMPHOCYTES # (AUTO) 0.7 10^3/uL (1.0-4.0); LYMPHOCYTES % (AUTO) 4 % (12-44); MEAN CORPUSCULAR HEMOGLOBIN 27 pg (25-34); MEAN CORPUSCULAR HGB CONC 35 g/dL (32-36); MEAN CORPUSCULAR VOLUME 78 fL (80-99); MEAN PLATELET VOLUME 8.9 fL (9.0-12.2); MONOCYTES # (AUTO) 1.3 10^3/uL (0.0-1.0); MONOCYTES % (AUTO) 7 % (0-12); NEUTROPHILS # (AUTO) 15.7 10^3/uL (1.8-7.8); NEUTROPHILS % (AUTO) 86 % (42-75); PLATELET COUNT 324 10^3/uL (130-400); WHITE BLOOD COUNT 18.2 10^3/uL (4.3-11.0)
[2021-06-20] MEDS: predniSONE 20 MG TAB PO SCH (06:12)
[2021-06-20 06:27] LABS: ALBUMIN 3.5 GM/DL (3.2-4.5); POTASSIUM 4.4 MMOL/L (3.6-5.0)
[2021-06-20 06:28] LABS: CALCIUM 8.9 MG/DL (8.5-10.1)
[2021-06-20 06:29] LABS: TOTAL PROTEIN 7.3 GM/DL (6.4-8.2)
[2021-06-20 06:31] LABS: BILIRUBIN,TOTAL 1.5 MG/DL (0.1-1.0)
[2021-06-20 06:33] LABS: CREATININE SERUM 0.83 MG/DL (0.60-1.30)
--- NOTE | 2021-06-20 07:17 | Progress Note - Surgery ---
DIEGO DCIK 06/20/21 0717: Subjective Time Seen by a Provider: 07:00 Subjective/Events-last exam Patient was sitting in bed this morning watching TV when I saw him. He reports feeling well and not being overly short of breath this morning. Does have a cough. He is peeing well, but isn't having regular bowl movements and thinks he may need more laxatives to help him go. He reports no pain anywhere this morning, and has no major concerns at this time. He reports he hasn't been out of bed much but does have some lightheadedness when he does. He saw Dr. Barnes yesterday for oncology consult for lung neoplasm w/ brain metastasis and is going to undergo treatment as they advise. Review of Systems HEENT: No Head Aches, No Visual Changes, No Ear Pain Pulmonary: Dyspnea, Cough (Productive with dark sputum.); No Pleuritic Chest Pain Cardiovascular: Lt Headedness (Reports having some lightheadedness when walking); No: Chest Pain, Palpitations Gastrointestinal: Constipation (Thinks he needs another laxative); No: Nausea, Vomiting, Abdominal Pain, Diarrhea Genitourinary: No Dysuria, No Incontinence Musculoskeletal: No: neck pain, shoulder pain, arm pain, back pain, hand pain Neurological: No: Weakness, Numbness Objective Exam Vital Signs Date Time Temp Pulse Resp B/P (MAP) Pulse Ox O2 Delivery O2 Flow Rate FiO2 06/20/21 04:11 36.0 78 18 123/68 95 Room Air 06/20/21 02:16 95 Room Air 0.00 06/19/21 23:57 36.0 89 18 127/73 95 Room Air 06/19/21 21:09 94 Room Air 0.00 06/19/21 20:45 92 Room Air 06/19/21 19:35 36.9 99 20 127/76 94 Room Air 06/19/21 16:00 36.9 102 20 152/91 92 Room Air 06/19/21 15:16 94 Room Air 0.00 06/19/21 14:30 36.4 99 22 143/94 93 Room Air 06/19/21 13:45 149/98 06/19/21 12:58 114 18 160/101 90 Room Air 06/19/21 12:56 36.8 06/19/21 10:09 97 Room Air 1/3/22 09:15 95 Room Air 06/19/21 08:17 101 15 132/86 92 Room Air 06/19/21 08:00 106 26 132/86 93 Room Air 06/19/21 08:00 36.7 I & O 06/20/21 07:00 Intake Total 1885 ml Output Total 1360 ml Balance 525 ml Capillary Refill : Less Than 3 Seconds General Appearance: No Apparent Distress, Chronically ill HEENT: PERRL/EOMI, Moist Mucous Membranes, Other (Facial swelling) Neck: No Lymphadenopathy (L), No Lymphadenopathy (R), No Thyromegaly; Other (neck swelling) Respiratory: Chest Non Tender, No Respiratory Distress, Accessory Muscle Use; No Wheezing; Other (Thoravent in place w/ some light red fluid inside. Increased breathing sounds, but no wheezes, crackles, rhonci, or rales.) Cardiovascular: Regular Rate, Rhythm (Heart sounds are faint and distant sound ing), No Murmur Peripheral Pulses: 2+ Dorsalis Pedis (R), 2+ Left Dors-Pedis (L), 2+ Radial Pulses (R), 2+ Radial Pulses (L) Gastrointestinal: normal bowel sounds, non tender, soft (LLQ felt mildly firmer than rest.), no organomegaly Extremity: Normal Capillary Refill, Non Tender, No Calf Tenderness, No Pedal Edema Neurologic/Psychiatric: Alert, Oriented x3, Normal Mood/Affect, blind escort II-XII Norm as Tested Skin: Normal Color, Warm/Dry Results Lab Laboratory Tests 06/20/21 05:44: White Blood Count 18.2H, Red Blood Count 5.56H, Hemoglobin 15.0, Hematocrit 43, Mean Corpuscular Volume 78L, Mean Corpuscular Hemoglobin 27, Mean Corpuscular Hemoglobin Concent 35, Red Cell Distribution Width 14.1, Platelet Count 324, Mean Platelet Volume 8.9L, Immature Granulocyte % (Auto) 3, Neutrophils (%) (Auto) 86H, Lymphocytes (%) (Auto) 4L, Monocytes (%) (Auto) 7, Eosinophils (%) (Auto) 0, Basophils (%) (Auto) 0, Neutrophils # (Auto) 15.7H, Lymphocytes # (Auto) 0.7L, Monocytes # (Auto) 1.3H, Eosinophils # (Auto) 0.0, Basophils # (Auto) 0.0, Immature Granulocyte # (Auto) 0.5H, Sodium Level 123*L, Potassium Level 4.4, Chloride Level 91L, Carbon Dioxide Level 22, Anion Gap 10, Blood Urea Nitrogen 24H, Creatinine 0.83, Estimat Glomerular Filtration Rate 94, BUN/Creatinine Ratio 29, Glucose Level 118H, Calcium Level 8.9, Corrected Calcium 9.3, Total Bilirubin 1.5H, Aspartate Amino Transf (AST/SGOT) 50H, Alanine Aminotransferase (ALT/SGPT) 131H, Alkaline Phosphatase 65, Total Protein 7.3, Albumin 3.5 Assessment/Plan Assessment/Plan Assessment/Plan Assessment: 1.) Lung neoplasm w/ brain metastasis 2.) Pneumothorax 3.) Leukocytosis 4.) Neutrophilia 5.) Hyponatremia 6.) Elevated Liver enzymes 7.) Constipation Plan: 1.) Patient has established with Dr. Gallegos for treatment of his Lung neoplasm w/ brain metastasis. Not a surgical condidate at this time. 2.) Last Chest X-ray on 06/[address] with improvement of right pneumothorax. Will consider ordering another Chest X ray and removal of Thoravent pending results 3&4.) Patients WBC's jumped from 13.1 yesterday to 18.2. Could be a side effect of steroids or neoplasm, could also indicate the beginning of a bacterial infection when paired with his neutrophilia. Patient hasn't had fever, hypotension, or tachycardia. Not concerned about sepsis at this time. If patient spikes fever then will have blood cultured. May consider sputum culture and/or Chest x ray to look for signs of pneumonia. 5.) Should try not to overload patient with too many fluids. considering his Sodium tends to run low. 6.) Patients LFT's are minimally elevated. AST went from 30 to 50 overnight and ALT went from 96 to 131 overnight. Not too alarming at this time, but will continue to monitor. 7.) Patient originally said he hadn;t had a BM. Overnight nurse informed me that he had, and upon questioning he said it was small. Unsure at this time how much retention patient has. He is not in discomfort so will continue docusate and miralax for now and monitor. DONOVAN MARIO DO 06/20/21 0941: Subjective Time Seen by a Provider: 09:26 Subjective/Events-last exam Pt seen and examined, in no acute distress. Denies cough. Review of Systems HEENT: No Head Aches, No Visual Changes Pulmonary: Dyspnea, Cough (Productive with dark sputum.) Cardiovascular: No: Chest Pain, Palpitations Gastrointestinal: No: Nausea, Vomiting, Abdominal Pain Objective Exam General Appearance: No Apparent Distress, Chronically ill HEENT: PERRL/EOMI, Moist Mucous Membranes, Other (Facial swelling) Neck: Other (neck swelling) Respiratory: No Respiratory Distress, Accessory Muscle Use; No Wheezing; Other (Thoravent in place w/ some light red fluid inside. Increased breathing sounds, but no wheezes, crackles, rhonci, or rales.) Cardiovascular: Regular Rate, Rhythm (Heart sounds are faint and distant sounding), No Murmur Gastrointestinal: non tender, soft (LLQ felt mildly firmer than rest.) Assessment/Plan Assessment/Plan Assessment/Plan 1.) Lung neoplasm w/ brain metastasis 2.) Pneumothorax -resolved 3.) Leukocytosis 4.) Hyponatremia Plan: I reviewed the CXR and there is no PTX, looking at Thoravent and no airleak seen. Will pull chest tube and sign off. Thoravent removed without difficulty and occlusive dressing placed. Supervisory-Addendum Brief Verification & Attestation Participated in pt care: history, MDM, physical Personally performed: exam, history, MDM, supervision of care Care discussed with: Medical Student Procedures: n/a Verification and Attestation of Medical Student E/M Service A medical student performed and documented this service. I then reviewed and verified all information documented by the medical student and made modifications to such information, when appropriate. I personally performed a physical exam, medical decision making and then discussed any differences between the notes and made revisions as necessary to create one note. Donovan Mario , 06/20/21 , 09:39 DIEGO DICK Jun 20, 2021 07:17 DONOVAN MARIO DO Jun 20, 2021 09:41
[2021-06-20] MEDS: polyethylene glycoL POWDER 17 GM (MIRALAX) PACK PO SCH ×2 (08:34→19:33)
[2021-06-20] MEDS: FAMOTIDINE 20MG/2ML IV (PEPCID) IVP SCH (08:34)
[2021-06-20] MEDS: SENNA W/DOCUSATE (SENOKOT S) TABLET PO SCH ×2 (08:34→19:33)
[2021-06-20] MEDS: amLODIPine 5 MG (NORVASC) TAB PO SCH (08:34)
--- NOTE | 2021-06-20 08:36 | Diagnostic Imaging Report ---
EXAMINATION: Chest, 2 views. HISTORY: Pleural effusion, pneumothorax. COMPARISON: 06/13/2021. FINDINGS: The heart size and pulmonary vasculature are normal. Stable right upper lung opacity measuring 5.9 cm. A right sided chest tube is present. No consolidation, pleural effusion, or pneumothorax. The osseous structures are intact. IMPRESSION: 1. No pneumothorax. 2. Stable right upper lung mass. Dictated by: Dictated on workstation # [id number]
[2021-06-20] MEDS: RT--FLUTICASONE/SALMETEROL 113-14 (AIRDUO RespiCLICK) IH SCH ×2 (09:45→21:21)
[2021-06-20] MEDS ORDERED: PRD20T PO (14:50)
--- NOTE | 2021-06-20 14:55 | Discharge Summary ---
Discharge Summary Hospital Course Problems/Diagnosis: (1) Pneumothorax, right Status: Acute Assessment & Plan: after lung mass biopsy. s/p Thoravent placement in ER. Repeat CXR with resolution, removed without incident. (2) Mass of right lung Status: Acute Assessment & Plan: Transferred to [place] on 06/11 due to large RUL mass extending into right hilar lesion, paratracheal and right sided mediastinum with narrowing of SVC and likely mets to lymph nodes and T2. Records not available, pt recalls only that he isnt a candidate for surgery but doesn't know results or plan other than that he was to see Oncology locally. Per Radiation Oncology, he was set up for that already, had first treatment on 06/20/21 while inpatient- has multiple small brain mets, receiving whole brain and lung radiation, plan to continue outpatient, and has care van set up for transport for tomorrow. (3) Hyponatremia Status: Acute Assessment & Plan: Suspect secondary to lung cancer, 1500 cc fluid restriction. 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 Discharged with 3 further days of prednisone. Hospital Course Date of Admission: Jun 17, 2021 at 23:45 Admission Diagnosis : See problem list Family Physician/Provider: Solange Ko Aprn Date of Discharge: 06/20/21 Discharge Diagnosis: See problem list Hospital Course: See problem list. Patient had home health set up on d/c from [facility] prior to this admission. Labs and Pending Lab Test: Laboratory Tests 06/20/21 05:44: White Blood Count 18.2H, Red Blood Count 5.56H, Hemoglobin 15.0, Hematocrit 43, Mean Corpuscular Volume 78L, Mean Corpuscular Hemoglobin 27, Mean Corpuscular Hemoglobin Concent 35, Red Cell Distribution Width 14.1, Platelet Count 324, Mean Platelet Volume 8.9L, Immature Granulocyte % (Auto) 3, Neutrophils (%) (Auto) 86H, Lymphocytes (%) (Auto) 4L, Monocytes (%) (Auto) 7, Eosinophils (%) (Auto) 0, Basophils (%) (Auto) 0, Neutrophils # (Auto) 15.7H, Lymphocytes # (Auto) 0.7L, Monocytes # (Auto) 1.3H, Eosinophils # (Auto) 0.0, Basophils # (Auto) 0.0, Immature Granulocyte # (Auto) 0.5H, Sodium Level 123*L, Potassium Level 4.4, Chloride Level 91L, Carbon Dioxide Level 22, Anion Gap 10, Blood Urea Nitrogen 24H, Creatinine 0.83, Estimat Glomerular Filtration Rate 94, BUN/Creatinine Ratio 29, Glucose Level 118H, Calcium Level 8.9, Corrected Calcium 9.3, Total Bilirubin 1.5H, Aspartate Amino Transf (AST/SGOT) 50H, Alanine Aminotransferase (ALT/SGPT) 131H, Alkaline Phosphatase 65, Total Protein 7.3, Albumin 3.5 Home Meds Active Prednisone 20 Mg Tab 40 Mg PO DAILY@0700 3 Days Reported Sleep Aid (Diphenhydramine HCl) 50 Mg/30 Ml Liquid 50 Mg PO HS PRN Symbicort 80-4.5 Mcg Inhaler (Budesonide/Formoterol Fumarate) 10.2 Gm Hfa.aer.ad 1-2 Puff INH DAILY PRN Amlodipine Besylate 5 Mg Tablet 5 Mg PO DAILY Furosemide 20 Mg Tablet 20 Mg PO DAILY PRN Assessment/Pt DC Instructions Follow up with primary physician within a week of discharge. Continue radiation treatments as scheduled. Follow up with Oncology for biopsy results and next steps. Discharge Diet: Other Diet (No more than 1500 ml of fluid per day) Activity as Tolerated: Yes Discharge Physical Examination Allergies: Coded Allergies: Penicillins (Verified Allergy, Unknown, 06/25/14) melatonin (Verified Allergy, Unknown, 06/11/21) penicillin (Unverified Allergy, Unknown, 01/03/15) General Appearance: No Apparent Distress Respiratory: Decreased Breath Sounds Cardiovascular: Regular Rate, Rhythm, No Murmur Skin: Warm/Dry Neurologic/Psychiatric: Alert, Normal Mood/Affect HERLINDA NDIAYE MD Jun 20, 2021 14:55
[2021-06-20 15:18] VITALS: BP 125/74
[2021-06-20] MEDS: ENOXAPARIN 40 MG/0.4 ML (LOVENOX) SYR SC SCH (19:33)
[2021-06-20] MEDS: MONTELUKAST 10 MG (SINGULAIR) TAB PO SCH (19:33)
[2021-06-20] MEDS: FAMOTIDINE 20 MG (PEPCID) TABLET PO SCH (19:33)
[2021-06-20] MEDS: ALPRAZolam 0.25 MG (XANAX) TAB PO PRN (19:33)
--- NOTE | 2021-06-20 20:03 | CONSULTATION REPORT ---
DATE OF SERVICE: 06/20/2021 The patient is admitted to room number 403. PRIMARY PHYSICIAN: Debra Posada MD. IMPRESSION: 1. 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 2. 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 3. Bilateral upper extremity, neck and face swelling due to SVC syndrome. RECOMMENDATIONS: 1. Proceed with palliative radiation therapy to the right paratracheal lymphadenopathy to improve the SVC syndrome. 2. Agree with palliative whole brain radiation therapy because of numerous brain metastases. 3. NGS study on tumor tissue is pending, but the PD-L1 was low positive with a TPS score of 1% to 5%. Once the full NGS studies are available, we will discuss palliative systemic treatment options. 4. Wean steroids gradually. 5. Follow up with me at the office in two to three weeks to discuss about further treatment options. 6. nutrition services worker consult for help and discharge planning. BRIEF HISTORY: The patient is a 61-year-old male, who came to the emergency room with one to two months history of increased swelling in the right upper extremity, neck, and face as well as worsening head pressure. He had a CT angiogram in the emergency room, which showed right upper lobe lung mass with hilar and right paratracheal lymphadenopathy causing SVC syndrome. The patient was sent to tertiary center in [place] and completed CT-guided biopsy of the right upper lobe lesion with a diagnosis of poorly differentiated non-small cell carcinoma. He was discharged home, but required admission because of pneumothorax. This was managed with placement with resolution and removed. Medical oncology consultation was requested for further recommendations. Radiation oncology has already seen the patient and started palliative radiation therapy to the right paratracheal/hilar mass and will start whole brain radiation therapy within the next few days. PAST MEDICAL HISTORY: Significant for COPD/emphysema and hypertension. PAST SURGICAL HISTORY: Include cataract surgery as well as an abdominal surgery. SOCIAL HISTORY: The patient is a and lives by himself near [place]. He has three daughters, all of whom live in [place]. He has a son, but does not know the whereabouts of him. He has extensive tobacco use, smoking one and a half to two packs of cigarettes a day and has been doing so for more than 40 plus years. 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 FAMILY HISTORY: Unremarkable with no major medical problems or malignancies that the patient knows of. PHYSICAL EXAMINATION: GENERAL: Showed an elderly male, who is in mild distress because of the facial swelling and dyspnea on exertion. VITAL SIGNS: Temperature was 36.3, pulse rate of 89, respirations of 20, and blood pressure 129/87 with oxygen saturation 94% on room air. HEENT: Normocephalic with significant swelling of the face and neck and both upper extremities. Extraocular muscles intact, conjunctivae pink, and oral mucosa moist. NECK: Supple, with no JVD. No cervical, supraclavicular or axillary lymphadenopathy palpable. CHEST: Examination of the chest showed prominent superficial veins and telangiectasia of the upper. LUNGS: With slightly diminished breath sounds in the right upper lobe area without any wheezes or rales. CARDIOVASCULAR: Regular in rate and rhythm. No murmurs or gallops heard. ABDOMEN: Soft and nontender with no hepatosplenomegaly or other masses palpable. EXTREMITIES: Showed no edema of the lower extremities. Bilateral upper extremities with edema as mentioned above. NEUROLOGIC: Showed no focal motor deficits. IMAGING STUDIES: CT angiogram of the chest done on 06/11/2021 showed a large right upper lobe mass measuring 6.1 x 4.0 cm directly extending into the right hilar region, paratracheal location and right-sided mediastinum. Right superior mediastinal lymph node. Significant narrowing of the diameter of superior vena cava with contrast filled collateral vessels likely reflecting significantly decreased blood flow through the superior vena cava. Elevation of right hemidiaphragm. Sclerotic lesion of T2 vertebral body concerning for bone metastasis. An MRI of the head done at [place] showed several small enhancing lesions in the brain consistent with metastasis. Pathology report from the right upper lobe mass needle biopsy showed a poorly differentiated non-small cell carcinoma. PD-L1 was low positive with TPS score in the 1% to 5% range. Lung cancer NGS panel is pending. LABORATORY DATA: CBC done today showed white count 18.2, hemoglobin 15.0, and platelet count 324,000 with neutrophil count 15.7, lymphocyte count 0.7 and monocyte count 1.3. Chemistry panel showed sodium level of 123. BUN was 24 and creatinine 0.83 with GFR 94 mL per minute. Total bilirubin was elevated at 1.5, AST 50 and ALT 131 with albumin level of 3.5. Thank you for allowing me to participate in this patient's care. I will follow the patient with you and make appropriate recommendations. Job ID: [id number] DocumentID: [id number] Dictated Date: 06/20/2021 19:05:53 Rn Telephonic Date: 06/20/2021 20:02:13 Dictated By: JANIS RICKETTS MD
[2021-06-20] MEDS: RT-ALBUTEROL/IPRATROPIUM 3 ML (DUONEB) VIAL INH PRN (21:21)
[2021-06-20] MEDS: diphenhydrAMINE 25 MG TAB (BENADRYL) PO PRN (21:44)
[2021-06-21 05:40] LABS: BASOPHILS % (AUTO) 0 % (0-10); EOSINOPHILS # (AUTO) 0.1 10^3/uL (0.0-0.3); EOSINOPHILS % (AUTO) 1 % (0-10); HEMATOCRIT 43 % (40-54); LYMPHOCYTES # (AUTO) 1.6 10^3/uL (1.0-4.0); LYMPHOCYTES % (AUTO) 12 % (12-44); MEAN CORPUSCULAR HEMOGLOBIN 27 pg (25-34); MEAN CORPUSCULAR HGB CONC 35 g/dL (32-36); MEAN CORPUSCULAR VOLUME 77 fL (80-99); MEAN PLATELET VOLUME 8.9 fL (9.0-12.2); MONOCYTES % (AUTO) 14 % (0-12); NEUTROPHILS # (AUTO) 9.6 10^3/uL (1.8-7.8); NEUTROPHILS % (AUTO) 70 % (42-75); PLATELET COUNT 326 10^3/uL (130-400); WHITE BLOOD COUNT 13.9 10^3/uL (4.3-11.0)
[2021-06-21 05:51] LABS: ALBUMIN 3.2 GM/DL (3.2-4.5)
[2021-06-21 05:52] LABS: POTASSIUM 3.8 MMOL/L (3.6-5.0)
[2021-06-21 05:53] LABS: CALCIUM 8.4 MG/DL (8.5-10.1)
[2021-06-21 05:54] LABS: TOTAL PROTEIN 6.8 GM/DL (6.4-8.2)
[2021-06-21 05:56] LABS: BILIRUBIN,TOTAL 1.4 MG/DL (0.1-1.0)
[2021-06-21 05:58] LABS: CREATININE SERUM 0.73 MG/DL (0.60-1.30)
[2021-06-21] MEDS: predniSONE 20 MG TAB PO SCH (06:07)
[2021-06-21] MEDS ORDERED: PRED10TA22 PO (07:47)
[2021-06-21] MEDS: RT-ALBUTEROL/IPRATROPIUM 3 ML (DUONEB) VIAL INH SCH ×2 (08:43→19:46)
[2021-06-21] MEDS: RT--FLUTICASONE/SALMETEROL 113-14 (AIRDUO RespiCLICK) IH SCH ×2 (08:43→19:50)
[2021-06-21] MEDS: FAMOTIDINE 20 MG (PEPCID) TABLET PO SCH ×2 (09:56→20:15)
[2021-06-21] MEDS: polyethylene glycoL POWDER 17 GM (MIRALAX) PACK PO SCH ×2 (09:56→20:16)
[2021-06-21] MEDS: amLODIPine 5 MG (NORVASC) TAB PO SCH (09:56)
[2021-06-21] MEDS: SENNA W/DOCUSATE (SENOKOT S) TABLET PO SCH ×2 (09:56→20:16)
[2021-06-21] MEDS: RT-ALBUTEROL/IPRATROPIUM 3 ML (DUONEB) VIAL INH PRN (11:56)
--- NOTE | 2021-06-21 13:07 | Progress Note ---
Standard Progress Note Progress Notes/Assess & Plan Date Seen by a Provider: Jun 21, 2021 Time Seen by a Provider: 12:46 Progress/Assessment & Plan 61-year-old male with SVC syndrome diagnosed recently due to right upper lobe poorly differentiated non-small cell carcinoma with hilar, mediastinal and right paratracheal lymphadenopathy causing the SVC syndrome. Patient was started on palliative radiation therapy and has completed 3 fractions. His symptoms are worsening with increasing cough and dyspnea on exertion. Clinically the bilateral upper extremity neck and facial swelling is worsening. Pressure/full feeling in head is also worsening. Discussed all this with his brother as well as the patient and answered their questions. Discussed the case with Dr. Barnes and consider combined chemoradiation with weekly carboplatin and paclitaxel regimen. Dr. Barnes was agreeable with the plan and patient wants to proceed with this. emergency services dispatcher has been consulted and is working on placement as patient lives alone and does not have social support to live by himself at home. Will need an IV line preferably in the lower extremities for administration of chemotherapy. We will reconsult Dr. Martinez for either a midline or a port. Will avoid upper extremities neck and chest because of the significant swelling due to SVC syndrome and increased risk of bleeding. We will plan on starting chemotherapy tomorrow. JANIS RICKETTS Jun 21, 2021 13:07
--- NOTE | 2021-06-21 15:21 | Progress Note ---
Subjective Subjective/Events-last exam Pt states he is feeling a little more short of breath today and his swelling is a little worse. He was going to go home with home health after radiation today, but is not really able to care for himself well enough at home at this time even with home health as he does not have any other assistance. Objective Exam Last Set of Vital Signs Vital Signs Date Time Temp Pulse Resp B/P (MAP) Pulse Ox O2 Delivery O2 Flow Rate FiO2 06/21/21 12:00 36.1 92 18 148/87 95 Room Air 06/21/21 09:00 0.00 06/20/21 15:18 21 Capillary Refill : Less Than 3 Seconds I&O Intake and Output 06/21/21 00:00 Intake Total 2340 ml Output Total 1100 ml Balance 1240 ml Intake Oral 2340 ml Output Urine Total 1100 ml # Voids 5 # Bowel Movements 2 General: Alert, No Acute Distress Lungs: Other (decreased air movement) Heart: Regular Rate, No Murmurs Extremities: Other (left arm with non-pitting edema greater than right) Skin: Other (diffuse varicosities over chest) Results/Procedures Lab Laboratory Tests 06/21/21 05:15: White Blood Count 13.9H, Red Blood Count 5.50, Hemoglobin 15.0, Hematocrit 43, Mean Corpuscular Volume 77L, Mean Corpuscular Hemoglobin 27, Mean Corpuscular Hemoglobin Concent 35, Red Cell Distribution Width 14.3, Platelet Count 326, Mean Platelet Volume 8.9L, Immature Granulocyte % (Auto) 4, Neutrophils (%) (Auto) 70, Lymphocytes (%) (Auto) 12, Monocytes (%) (Auto) 14H, Eosinophils (%) (Auto) 1, Basophils (%) (Auto) 0, Neutrophils # (Auto) 9.6H, Lymphocytes # (Auto) 1.6, Monocytes # (Auto) 2.0H, Eosinophils # (Auto) 0.1, Basophils # (Auto) 0.0, Immature Granulocyte # (Auto) 0.5H, Sodium Level 121*L, Potassium Level 3.8, Chloride Level 91L, Carbon Dioxide Level 21, Anion Gap 9, Blood Urea Nitrogen 19H, Creatinine 0.73, Estimat Glomerular Filtration Rate 109, BUN/Creatinine Ratio 26, Glucose Level 95, Calcium Level 8.4L, Corrected Calcium 9.0, Total Bilirubin 1.4H, Aspartate Amino Transf (AST/SGOT) 57H, Alanine Aminotransferase (ALT/SGPT) 150H, Alkaline Phosphatase 59, Total Protein 6.8, Albumin 3.2 Radiology Date of Exam:06/17/21 CHEST 1 VIEW, AP/PA ONLY HISTORY: Thoravent placement, pneumothorax COMPARISON: Radiographs from the same day TECHNIQUE: Frontal view of the chest FINDINGS: There has been placement of a thoravent chest tube in the right lung. The pneumothorax has markedly improved. There may be minimal residual at the apex. The right upper lobe lung mass is stable. There is elevation of the right hemidiaphragm which is stable. The left lung is clear. The heart is normal in size. IMPRESSION: 1. Markedly improved right pneumothorax following chest tube placement. There may be minimal residual at the apex. 2. Stable right upper lobe lung mass. Dictated by: Dictated on workstation # [id number] Dict: 06/17/21 2351 Trans: 06/18/21 0004 [facility] [id number] Interpreted by: RYANN KELLY MD Electronically signed by: RYANN KELLY MD 06/18/21 0004 Assessment/Plan Assessment/Plan (1) Pneumothorax, right Status: Acute Assessment & Plan: after lung mass biopsy. s/p Thoravent placement in ER. Repeat CXR with resolution, removed without incident. 1/5 feeling more short of breath today, if not improved with breathing treatment, repeat CXR. (2) Mass of right lung Status: Acute Assessment & Plan: Transferred to [facility] on 06/11 due to large RUL mass extending into right hilar lesion, paratracheal and right sided mediastinum with narrowing of SVC and likely mets to lymph nodes and T2. Records not available, pt recalls only that he isnt a candidate for surgery but doesn't know results or plan other than that he was to see Oncology locally. 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 (6) DVT prophylaxis Status: Acute Assessment & Plan: Enoxaparin HERLINDA NDIAYE MD Jun 21, 2021 15:21
--- NOTE | 2021-06-21 15:52 | Diagnostic Imaging Report ---
EXAMINATION: KUB at 3:17 p.m. INDICATION: Central venous catheter placement. FINDINGS: In the interval since the CT abdomen/pelvis exam of 06/12/2021, a central venous catheter has been inserted into the right femoral vein. The tip of the catheter overlies the superior margin of the right transverse process of L5. I suspect the tip is overlying either the distal-most portion of the inferior vena cava or the proximal-most right common iliac vein. The bowel gas pattern is nonspecific and similar to the CT abdomen/pelvis exam. There is no acute abnormality identified. There is no mass or organomegaly noted. The bladder shadow is again evident. The osseous structures are intact. IMPRESSION: 1. There has been interval insertion of a right-sided PICC line into the common femoral vein on the right. The tip of the catheter overlies either the distal-most portion of the inferior vena cava or the proximal-most portion of the right common iliac vein. 2. There is no acute abnormality noted otherwise. 3. These results were discussed with Dr. Donovan Martinez. Dictated by: Dictated on workstation # [id number]
--- NOTE | 2021-06-21 15:55 | Physical Therapy Evaluation ---
PT Evaluation-General Medical Diagnosis Admission Date Jun 17, 2021 at 23:45 Medical Diagnosis: right pneumothorax Onset Date: Jun 17, 2021 Therapy Diagnosis Therapy Diagnosis: impaired mobility, strength, endurance Height/Weight Height (Feet): 6 Height (Inches): 0 Weight (Pounds): 169 Precautions Precautions/Isolations: Standard Precautions Referral Physician: Albino Reason for Referral: Evaluation/Treatment Medical History Additional Medical History Past Medical History Surgeries: Abdominal, Eye Surgery COPD, Emphysema Hypertension Cataract Did You Recieve Any Treatments: No Sleep Difficulties Blood Disorders: No Reviewed History: Yes Social History Home: Single Level Current Living Status: Alone Entry Into Home: Level Entry Prior Prior Level of Function SCALE: Activities may be completed with or without assistive devices. 5-Iqkisvpdox-mzpfhyw completes the activity by him/herself with no assistance from a helper. 5-Set-up or Clean-up Assistance-helper sets up or cleans up; patient completes activity. [place] assists only prior to or following the activity. 4-Supervision or Touching Assistance-helper provides verbal cues and/or touching/steadying and/or contact guard assistance as patient completes activity. Assistance may be provided throughout the activity or intermittently. 3-Partial/Moderate Assistance-helper does LESS THAN HALF the effort. [place] lifts, holds or supports trunk or limbs, but provides less than half the effort. 2-Substantial/Maximal Assistance-helper does MORE THAN HALF the effort. [place] lifts or holds trunk or limbs and provides more than half the effort. 7-Wtcqvgrcw-oifgtx does ALL the effort. Patient does none of the effort to complete the activity. Or, the assistance of 2 or more helpers is required for the patient to complete the activity. If activity was not attempted, code reason: 7-Patient Refused. 9-Not Applicable-not attempted and the patient did not perform the activity before the current illness, exacerbation or injury. 10-Not Attempted due to Environmental Limitations-(lack of equipment, weather restraints, etc.). 88-Not Attempted due to Medical Conditions or Safety Concerns. Bed Mobility: 6 Transfers (B,C,W/C): 6 Gait: 6 Stairs: 6 Indoor Mobility (Ambulation): Independent Stairs: Independent PT Evaluation-Current Subjective Patient in bed pre tx, agrees to PT, has no complaints of pain. Pt/Family Goals to be independent at home Objective Patient Orientation: Person, Confused ROM/Strength ROM Lower Extremities WNL Strength Lower Extremities LLE (hip flexion 3+/5, knee flexion 4/5, knee extension 4/5, dorsiflexion 4/5), RLE not tested due to pain except for dorsiflexion 4/5 Sensory Vision: Functional Hearing: Functional Sensation Right Lower Extremit: Intact Sensation Left Lower Extremity: Intact Transfers Roll Left to Right (QC): 6 Sit to Lying (QC): 6 Lying to Sitting/Side of Bed(Q: 6 Sit to Stand (QC): 4 Chair/Lmu-pm-Nedrd Xfer(QC): 4 Gait Does the Patient Walk?: Yes Mode of Locomotion: Walk Anticipated Mode of Locomotion: Walk Walk 10 feet (QC): 4 Walk 50 ft with 2 Turns(QC): 4 Distance: 175' Gait Assistive Device: FWW Comments/Gait Description slow but steady ambulation, somewhat impulsive with turning Balance Sitting Static: Normal Sitting Dynamic: Normal Standing Static: Good Standing Dynamic: Good Assessment/Needs Patient in bed post tx with nurse call, phone, tray, bed alarm on. Patient has impaired mobility, strength, endurance. Patient gets SOB with ambulation, has a persistent cough. Rehab Potential: Fair PT Senior Care Goals Service Attendant Goals PT Senior Care Goals Time Frame: Jun 28, 2021 Roll Left & Right (QC): 6 Sit to Lying (QC): 6 Lying-Sitting on Side/Bed(QC): 6 Sit to Stand (QC): 6 Chair/Xss-gx-Eqgrj Xfer(QC): 6 Toilet Transfer (QC): 6 Walk 10 feet (QC): 6 Walk 50ft with 2 Turns (QC): 6 Walk 150 ft (QC): 6 PT Plan Problem List Problem List: Activity Tolerance, Functional Strength, Safety, Balance, Gait, Transfer, ROM Treatment/Plan Treatment Plan: Continue Plan of Care Treatment Plan: Education, Functional Activity Yulissa, Functional Strength, Gait, Safety, Therapeutic Exercise, Transfers Treatment Duration: Jun 28, 2021 Frequency: 6 times per week Estimated Hrs Per Day: .25 hour per day Patient and/or Family Agrees t: Yes Safety Risks/Education Patient Education: Gait Training, Transfer Techniques, Correct Positioning, Safety Issues Teaching Recipient: Patient Teaching Methods: Demonstration, Discussion Response to Teaching: Reinforcement Needed Discharge Recommendations Plan Patient will perform bed mobility and transfer training, balance and endurance training, functional strengthening, stair training, gait training, and education, to improve functional mobility and independence at home. Therapy Discharge Recommendati: 24 Hour Supervision Time/GCodes Time In: 1532 Time Out: 1546 Total Billed Treatment Time: 14 Total Billed Treatment 1 visit TEETEE Quevedo' ENOCH CASTILLO PT Jun 21, 2021 15:55
--- NOTE | 2021-06-21 15:55 | Occupational Therapy Eval ---
OT Evaluation-General/PLF Medical Diagnosis Admission Date Jun 17, 2021 at 23:45 Medical Diagnosis: R pneumothorax Onset Date: Jun 17, 2021 Therapy Diagnosis Therapy Diagnosis: decreased ADL status Height/Weight Height (Feet): 6 Height (Inches): 0 Weight (Pounds): 169 Precautions Precautions/Isolations: Standard Precautions Referral Physician: Albino Referral Reason: Evaluation/Treatment Medical History Additional Medical History R lung mass s/p biopsy, COPD, HTN, cataract. He smokes 1.5 PPD and ETOH 30 pack every 3 days. Current History ED due to dyspnea and wheezing, found to have severe R PTX. Social History Home: Single Level Current Living Status: Alone Entry Into Home: Stairs With Railing ADL-Prior Level of Function SCALE: Activities may be completed with or without assistive devices. 8-Sqbiupizgr-tfziprh completes the activity by him/herself with no assistance from a helper. 5-Set-up or Clean-up Assistance-helper sets up or cleans up; patient completes activity. [place] assists only prior to or following the activity. 4-Supervision or Touching Assistance-helper provides verbal cues and/or touching/steadying and/or contact guard assistance as patient completes activity. Assistance may be provided throughout the activity or intermittently. 3-Partial/Moderate Assistance-helper does LESS THAN HALF the effort. [place] lifts, holds or supports trunk or limbs, but provides less than half the effort. 2-Substantial/Maximal Assistance-helper does MORE THAN HALF the effort. [place] lifts or holds trunk or limbs and provides more than half the effort. 5-Solvbluow-sjysho does ALL the effort. Patient does none of the effort to complete the activity. Or, the assistance of 2 or more helpers is required for the patient to complete the activity. If activity was not attempted, code reason: 7-Patient Refused. 9-Not Applicable-not attempted and the patient did not perform the activity before the current illness, exacerbation or injury. 10-Not Attempted due to Environmental Limitations-(lack of equipment, weather restraints, etc.). 88-Not Attempted due to Medical Conditions or Safety Concerns. ADL PLOF Comments Pt reports being independent with ADLs and functional mobility, no AD. When asked about his ability to complete ADLs, pt was unclear with his responses. Pt initially indicates he has home health assistance with showering, but later indicated he was able to shower himself. PLOF unknown at this time. Self Care: Unknown Functional Cognition: Unknown OT Current Status Subjective Pt laying in bed, agreeable to OT evaluation. Mental Status/Objective Patient Orientation: Person, Confused, Situation Current Hand Dominance: Right Upper Extremity ROM WFL, BUE shoulder flexion to approx 120 degrees Upper Extremity Coordination WFL Upper Extremity Sensation WFL Upper Extremity Strength grossly 5/5 ADL-Treatment Eating (QC): 6 (Per pt report) Oral Hygiene (QC): 5 (per clincial judgment.) Upper Body Dressing (QC): 5 (per clincial judgment) On/Off Footwear (QC): 6 (IND donning/doffing gripper socks.) Toileting Hygiene (QC): 4 (CGA-SBA per pt report and clincial judgment.) Other Treatments Pt laying in bed, transferred supine to sit EOB independently, then sit to stand to walker with CGA. Pt performed functional mobility 175' in halls using FWW, CGA. Pt returned to his room transferring to EOB. Pt able to doff/don gripper socks independently. When asked how much assistance he required with his last shower, he indicates the nurse completed all parts. Pt feels like he would need assistance with showering at this time, as he is unable to reach his feet. OT educated pt on how he was just able to don/doff gripper socks and didn't have difficulty with reaching his toes. Pt then reports he would need assistance with washing his back. Per clinical judgment, pt would be able to wash all parts in the shower if he attempted with SBA-CGA in stand. Pt transferred supine. Post tx, pt in bed, call light in reach and all needs met, bed alarm activated. Education OT Patient Education: Correct positioning, Energy conservation, Modified ADL techniques, Progress toward Goal/Update tx plan, Purpose of tx/functional activities, Rehab process, Safety issues, Transfer techniques Teaching Recipient: Patient Teaching Methods: Discussion Response to Teaching: Verbalize Understanding OT Supervisor Inspection Goals Supervisor Inspection Goals Time Frame: Jun 30, 2021 Eating (QC): 6 Oral Hygiene (QC): 6 Toileting Hygiene (QC): 6 Shower/Bathe Self (QC): 6 Upper Body Dressing (QC): 6 Lower Body Dressing (QC): 6 On/Off Footwear (QC): 6 Additional Goals: 1-Demonstrate ADL Tasks, 2-Verbalize Understanding, 3- ImproveStrength/Yulissa 1=Demonstrate adherence to instructed precautions during ADL tasks. 2=Patient will verbalize/demonstrate understanding of assistive devices/modifications for ADL. 3=Patient will improve strength/tolerance for activity to enable patient to perform ADL's. OT Education/Plan Problem List/Assessment Assessment: Decreased Activ Tolerance, Decreased Safety Aware, Impaired I ADL's Discharge Recommendations Plan/Recommendations: Continue POC Treatment Plan/Plan of Care Patient would benefit from OT for education, treatment and training to promote independence in ADL's, mobility, safety and/or upper extremity function for ADL's. Plan of Care: ADL Retraining, Functional Mobility, UE Funct Exercise/Act Treatment Duration: Jun 30, 2021 Frequency: 3 times per week (3-5 times per week) Estimated Hrs Per Day: .25 hour per day Rehab Potential: Fair Time/GCodes Start Time: 15:32 Stop Time: 15:46 Total Time Billed (hr/min): 14 Billed Treatment Time 1LAURIE ADDISON OT Jun 21, 2021 15:55
--- NOTE | 2021-06-21 15:56 | Progress Note-Post Operative ---
Post-Operative Progess Note Surgeon (s)/Process Safety Specialist (s) Surgeon MELISA MARIO DO Process Safety Specialist: Shaye -PICC nurse Pre-Operative Diagnosis Venous insufficiency, metastatic Lung CA Post-Operative Diagnosis same Procedure & Operative Findings Date of Procedure 06/21/21 Procedure Performed/Findings PICC line insertion, mid-thigh with US guidance The patient was in their bed on the floor, was prepped and draped in the sterile fashion. A surgical pause was performed. Ultrasound was used to locate the femoral vein about 4 inches below the inguinal crease. Once located anesthetic was infiltrated above it. Using a finder needle and watching with the US; the right femoral vein was accessed. Dark nonpulsatile blood was withdrawn. The wire was inserted. US assured proper placement. The needle was removed. A [#11] blade scalpel was used to make a stab incision along the guidewire. Dilator sheath was then advanced over the wire using Seldinger technique and the dilator was removed. The PICC line catheter was inserted through the dilator sheath using the Seldinger technique. The [place] wire had already been removed and then dilator was split aprat. The catheter was then accessed without difficulty. Good flash of blood was seen and it was then flushed with saline. The catheter was then taped in place. The area was then washed and dried. Sterile dressing was placed over incision. The patient tolerated the procedure well without complication. Anesthesia Type local lidocaine Estimated Blood Loss Estimated blood loss (mL): scant Specimens/Packing Specimens Removed none MELISA MARIO DO Jun 21, 2021 15:56
[2021-06-21] MEDS: MONTELUKAST 10 MG (SINGULAIR) TAB PO SCH (20:15)
[2021-06-21] MEDS: ENOXAPARIN 40 MG/0.4 ML (LOVENOX) SYR SC SCH (20:15)
[2021-06-21] MEDS: ALPRAZolam 0.25 MG (XANAX) TAB PO PRN (20:15)
[2021-06-22] MEDS: RT-ALBUTEROL/IPRATROPIUM 3 ML (DUONEB) VIAL INH PRN (00:56)
[2021-06-22] MEDS: predniSONE 20 MG TAB PO SCH (05:32)
[2021-06-22 05:47] LABS: BASOPHILS % (AUTO) 0 % (0-10); EOSINOPHILS % (AUTO) 0 % (0-10); HEMATOCRIT 43 % (40-54); HEMOGLOBIN 15.1 g/dL (13.3-17.7); LYMPHOCYTES # (AUTO) 1.1 10^3/uL (1.0-4.0); LYMPHOCYTES % (AUTO) 8 % (12-44); MEAN CORPUSCULAR HEMOGLOBIN 27 pg (25-34); MEAN CORPUSCULAR HGB CONC 35 g/dL (32-36); MEAN CORPUSCULAR VOLUME 77 fL (80-99); MEAN PLATELET VOLUME 8.6 fL (9.0-12.2); MONOCYTES # (AUTO) 1.7 10^3/uL (0.0-1.0); MONOCYTES % (AUTO) 12 % (0-12); NEUTROPHILS # (AUTO) 10.8 10^3/uL (1.8-7.8); NEUTROPHILS % (AUTO) 77 % (42-75); PLATELET COUNT 307 10^3/uL (130-400)
[2021-06-22 06:08] LABS: ALBUMIN 3.3 GM/DL (3.2-4.5); POTASSIUM 3.7 MMOL/L (3.6-5.0)
[2021-06-22 06:09] LABS: CALCIUM 8.5 MG/DL (8.5-10.1)
[2021-06-22 06:11] LABS: TOTAL PROTEIN 6.9 GM/DL (6.4-8.2)
[2021-06-22 06:12] LABS: BILIRUBIN,TOTAL 1.9 MG/DL (0.1-1.0)
[2021-06-22 06:14] LABS: CREATININE SERUM 0.78 MG/DL (0.60-1.30)
[2021-06-22] MEDS: RT-ALBUTEROL/IPRATROPIUM 3 ML (DUONEB) VIAL INH SCH (07:35)
[2021-06-22] MEDS: RT--FLUTICASONE/SALMETEROL 113-14 (AIRDUO RespiCLICK) IH SCH (07:36)
[2021-06-22] MEDS ORDERED: NS IV 1000 ML (CANCER CTR) IV SCH (08:30)
[2021-06-22] MEDS ORDERED: FOSAPREPITANT (CANCER CENTER) 150 MG in NS (IVPB) CANCER CENTER ONLY 150 ML IV SCH (08:30)
[2021-06-22] MEDS ORDERED: CARBOPLATIN IV SCH (08:30)
[2021-06-22] MEDS ORDERED: D5W IV SCH (08:30)
[2021-06-22] MEDS: polyethylene glycoL POWDER 17 GM (MIRALAX) PACK PO SCH (10:03)
[2021-06-22] MEDS: amLODIPine 5 MG (NORVASC) TAB PO SCH (10:03)
[2021-06-22] MEDS: FAMOTIDINE 20 MG (PEPCID) TABLET PO SCH (10:03)
[2021-06-22] MEDS: SENNA W/DOCUSATE (SENOKOT S) TABLET PO SCH (10:03)
--- NOTE | 2021-06-22 10:44 | Physical Therapy Daily Note ---
PT Daily Note-Current Subjective Patient reports he has not slept much and is very tired. He does agree to PT. Mental Status Patient Orientation: Normal For Age Transfers SCALE: Activities may be completed with or without assistive devices. 9-Iabsqxtvqh-pzgnbob completes the activity by him/herself with no assistance from a helper. 5-Set-up or Clean-up Assistance-helper sets up or cleans up; patient completes activity. [place] assists only prior to or following the activity. 4-Supervision or Touching Assistance-helper provides verbal cues and/or touching/steadying and/or contact guard assistance as patient completes activity. Assistance may be provided throughout the activity or intermittently. 3-Partial/Moderate Assistance-helper does LESS THAN HALF the effort. [place] li fts, holds or supports trunk or limbs, but provides less than half the effort. 2-Substantial/Maximal Assistance-helper does MORE THAN HALF the effort. [place] lifts or holds trunk or limbs and provides more than half the effort. 4-Weujzbodh-dirhby does ALL the effort. Patient does none of the effort to complete the activity. Or, the assistance of 2 or more helpers is required for the patient to complete the activity. If activity was not attempted, code reason: 7-Patient Refused. 9-Not Applicable-not attempted and the patient did not perform the activity before the current illness, exacerbation or injury. 10-Not Attempted due to Environmental Limitations-(lack of equipment, weather restraints, etc.). 88-Not Attempted due to Medical Conditions or Safety Concerns. Sit to Lying (QC): 6 Lying to Sitting/Side of Bed(Q: 6 Sit to Stand (QC): 4 Chair/Bui-gr-Jrbld Xfer(QC): 4 Toilet Transfer (QC): 4 SBA for OOB activity for safety Gait Training Does the Patient Walk?: Yes Distance: 275' Walk 10 feet (QC): 4 Walk 50 ft with 2 Turns(QC): 4 Walk 150 ft (QC): 4 Gait Assistive Device: FWW safe and functional with no deviation/extended UE's with FWW use and refuses to correct Assessment Patient toileted self independently. Patient returned to bed with needs met. Increase activity as tolerated. PT Music Autographer Goals Group Home Goals PT Group Home Goals Time Frame: Jun 28, 2021 Roll Left & Right (QC): 6 Sit to Lying (QC): 6 Lying-Sitting on Side/Bed(QC): 6 Sit to Stand (QC): 6 Chair/Rdj-hf-Qikax Xfer(QC): 6 Toilet Transfer (QC): 6 Walk 10 feet (QC): 6 Walk 50ft with 2 Turns (QC): 6 Walk 150 ft (QC): 6 PT Plan Treatment/Plan Treatment Plan: Continue Plan of Care Treatment Plan: Education, Functional Activity Yulissa, Functional Strength, Gait, Safety, Therapeutic Exercise, Transfers Treatment Duration: Jun 28, 2021 Frequency: 6 times per week Estimated Hrs Per Day: .25 hour per day Patient and/or Family Agrees t: Yes Time/GCodes Time In: 1012 Time Out: 1022 Total Billed Treatment Time: 10 Total Billed Treatment 1 visit FA 10 min LEANDRO PHILLIPS PT Jun 22, 2021 10:44
--- NOTE | 2021-06-22 13:55 | Discharge Summary ---
Discharge Summary Hospital Course Problems/Diagnosis: (1) Pneumothorax, right Status: Resolved Resolution Date/Time: 06/22/21 @ 13:52 Assessment & Plan: after lung mass biopsy. s/p Thoravent placement in ER. Repeat CXR with resolution, removed without incident. 06/21 feeling more short of breath today, if not improved with breathing treatment, repeat CXR. 06/22 respiratory status stable on room air, discharged to swing bed status. (2) Mass of right lung Status: Acute Assessment & Plan: Transferred to [facility] on 06/11 due to large RUL mass extending into right hilar lesion, paratracheal and right sided mediastinum with narrowing of SVC and likely mets to lymph nodes and T2. Records not available, pt recalls only that he isnt a candidate for surgery but doesn't know results or plan other than that he was to see Oncology locally. Per Radiation Oncology, he was set up for that already, had first treatment on 06/20/21 while inpatient- has multiple small brain mets, receiving whole brain and lung radiation 06/21 appreciate Med Onc recommendations, patient with non-small cell lung cancer per biopsy, given worsening in spite of first two radiation treatments, plan to start concurrent chemotherapy 06/22 discharged to swing bed status for further treatment due to worsening swelling and difficulty breathing requiring urgent treatment. 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 (6) Non-small cell cancer of right lung Hospital Course Date of Admission: Jun 17, 2021 at 23:45 Admission Diagnosis : Family Physician/Provider: Solange Ko Aprn Date of Discharge: 06/22/21 Discharge Diagnosis: See problem list Hospital Course: See problem list Labs and Pending Lab Test: Laboratory Tests 06/22/21 05:37: White Blood Count 14.0H, Red Blood Count 5.61H, Hemoglobin 15.1, Hematocrit 43, Mean Corpuscular Volume 77L, Mean Corpuscular Hemoglobin 27, Mean Corpuscular Hemoglobin Concent 35, Red Cell Distribution Width 14.3, Platelet Count 307, Mean Platelet Volume 8.6L, Immature Granulocyte % (Auto) 3, Neutrophils (%) (Auto) 77H, Lymphocytes (%) (Auto) 8L, Monocytes (%) (Auto) 12, Eosinophils (%) (Auto) 0, Basophils (%) (Auto) 0, Neutrophils # (Auto) 10.8H, Lymphocytes # (Auto) 1.1, Monocytes # (Auto) 1.7H, Eosinophils # (Auto) 0.0, Basophils # (Auto) 0.0, Immature Granulocyte # (Auto) 0.4H, Sodium Level 119*L, Potassium Level 3.7, Chloride Level 87L, Carbon Dioxide Level 23, Anion Gap 9, Blood Urea Nitrogen 16, Creatinine 0.78, Estimat Glomerular Filtration Rate 101, BUN/Creatinine Ratio 21, Glucose Level 103, Calcium Level 8.5, Corrected Calcium 9.1, Total Bilirubin 1.9H, Aspartate Amino Transf (AST/SGOT) 67H, Alanine Aminotransferase (ALT/SGPT) 191H, Alkaline Phosphatase 65, Total Protein 6.9, Albumin 3.3 Home Meds Active Reported Sleep Aid (Diphenhydramine HCl) 50 Mg/30 Ml Liquid 50 Mg PO HS PRN Symbicort 80-4.5 Mcg Inhaler (Budesonide/Formoterol Fumarate) 10.2 Gm Hfa.aer.ad 1-2 Puff INH DAILY PRN Amlodipine Besylate 5 Mg Tablet 5 Mg PO DAILY Furosemide 20 Mg Tablet 20 Mg PO DAILY PRN Assessment/Pt DC Instructions Follow up with primary after swing bed discharge. Discharge Physical Examination Allergies: Coded Allergies: Penicillins (Verified Allergy, Unknown, 06/25/14) melatonin (Verified Allergy, Unknown, 06/11/21) penicillin (Unverified Allergy, Unknown, 01/03/15) General Appearance: No Apparent Distress Respiratory: Decreased Breath Sounds Cardiovascular: Regular Rate, Rhythm, No Murmur Gastrointestinal: Normal Bowel Sounds, Soft Extremity: Other (right arm and face swollen) Skin: Other (varicosities over chest) Neurologic/Psychiatric: Alert, Normal Mood/Affect HERLINDA NDIAYE MD Jun 22, 2021 13:55
== END 2021-06-22 13:35 | disposition swing bed (61) | DRG 200 ==
LOC: EDUNIT# 22:25 → ER 22:26 → EDLOC 23:45 → ICU 23:45 → 4TH 06-19 14:30
PROVIDERS: ADMIT Internal Medicine; ATTEND Family Medicine
PROC: 0W9930Z Drainage of Right Pleural Cavity with Drainage Device, Percutaneous Approach (ICD-10-PCS; principal; 2021-06-17)
PROC: 02HV33Z Insertion of Infusion Device into Superior Vena Cava, Percutaneous Approach (ICD-10-PCS; 2021-06-21)
DX: J93.9 Pneumothorax, unspecified (principal); J44.1 Chronic obstructive pulmonary disease with (acute) exacerbation; I87.1 Compression of vein; E87.1 Hypo-osmolality and hyponatremia; C34.31 Malignant neoplasm of lower lobe, right bronchus or lung; C79.51 Secondary malignant neoplasm of bone; C79.31 Secondary malignant neoplasm of brain; F17.210 Nicotine dependence, cigarettes, uncomplicated; I10 Essential (primary) hypertension; I87.2 Venous insufficiency (chronic) (peripheral); D72.0 Genetic anomalies of leukocytes; K59.00 Constipation, unspecified; Z66 Do not resuscitate
CPT/HCPCS: 32551; 36415; 71045; 71046; 74018; 77290; 77295; 77300; 77334; 77417; 80053; 83735; 84100; 85007; 85025; 85027; 86141; 94640; 94660; 94760; 96374; 96375; 99204; 99291

== ENCOUNTER 2021-06-22 12:58 | Inpatient (IN) | payer MEDICARE, MEDICAID ==
[~2021-06-22] VITALS: Ht 170 cm; Wt 85.6 kg
[~2021-06-22 12:58] MED LIST changes: +AMLO-250 PO; +BUDE10.22 INH; +DIPH50LI26 PO; +FURO20TA4 PO; +PRED10TA22 PO
[2021-06-22] MEDS ORDERED: ENOXAPARIN 40 MG/0.4 ML (LOVENOX) SYR SC SCH (14:00)
[2021-06-22] MEDS ORDERED: LORazepam INJ 2 MG/ML (ATIVAN) VIAL IV PRN (14:00)
[2021-06-22] MEDS ORDERED: LOPERAMIDE 2 MG (IMODIUM) TABLET PO PRN (14:00)
[2021-06-22] MEDS ORDERED: DOCUSATE SODIUM 100 MG (COLACE) CAP PO PRN (14:00)
[2021-06-22] MEDS ORDERED: ONDANSETRON 4 MG (ZOFRAN) ORAL DISSOLVE TAB PO PRN (14:00)
[2021-06-22] MEDS ORDERED: CALCIUM CARBONATE 500 MG (TUMS) TAB.CHEW PO PRN (14:00)
[2021-06-22] MEDS ORDERED: ONDANSETRON 4 MG/2 ML (SDV) Z0FRAN IVP PRN (14:00)
--- NOTE | 2021-06-22 15:04 | Physical Therapy Evaluation ---
PT Evaluation-General Medical Diagnosis Admission Date Jun 22, 2021 at 13:50 Medical Diagnosis: right pneumothorax Onset Date: Jun 17, 2021 Therapy Diagnosis Therapy Diagnosis: impaired mobility, strength, endurance Height/Weight Height (Feet): 6 Height (Inches): 0 Weight (Pounds): 169 Referral Physician: Albino Reason for Referral: Evaluation/Treatment Medical History Additional Medical History Past Medical History Surgeries: Abdominal, Eye Surgery COPD, Emphysema Hypertension Cataract Did You Recieve Any Treatments: No Sleep Difficulties Blood Disorders: No Reviewed History: Yes Reviewed History: Yes Social History Home: Single Level Current Living Status: Alone Entry Into Home: Level Entry Prior Prior Level of Function SCALE: Activities may be completed with or without assistive devices. 1-Xfddsziwtl-rtymzln completes the activity by him/herself with no assistance from a helper. 5-Set-up or Clean-up Assistance-helper sets up or cleans up; patient completes activity. [place] assists only prior to or following the activity. 4-Supervision or Touching Assistance-helper provides verbal cues and/or touching/steadying and/or contact guard assistance as patient completes activity. Assistance may be provided throughout the activity or intermittently. 3-Partial/Moderate Assistance-helper does LESS THAN HALF the effort. [place] lifts, holds or supports trunk or limbs, but provides less than half the effort. 2-Substantial/Maximal Assistance-helper does MORE THAN HALF the effort. [place] lifts or holds trunk or limbs and provides more than half the effort. 2-Rnsllxvam-nkuqge does ALL the effort. Patient does none of the effort to complete the activity. Or, the assistance of 2 or more helpers is required for the patient to complete the activity. If activity was not attempted, code reason: 7-Patient Refused. 9-Not Applicable-not attempted and the patient did not perform the activity before the current illness, exacerbation or injury. 10-Not Attempted due to Environmental Limitations-(lack of equipment, weather restraints, etc.). 88-Not Attempted due to Medical Conditions or Safety Concerns. Bed Mobility: 6 Transfers (B,C,W/C): 6 Gait: 6 Stairs: 6 Indoor Mobility (Ambulation): Independent Stairs: Independent PT Evaluation-Current Subjective Patient in bed pre tx, agrees to PT, has mild pain in abdomen left side, also complains of some pressure in his head. Nurse notified. Pt/Family Goals to be independent at home Objective Patient Orientation: Person, Confused ROM/Strength ROM Lower Extremities WNL Strength Lower Extremities LLE (hip flexion 3+/5, knee flexion 4/5, knee extension 4/5, dorsiflexion 4/5), RLE not tested due to pain except for dorsiflexion 4/5 Sensory Vision: Functional Hearing: Functional Sensation Right Lower Extremit: Intact Sensation Left Lower Extremity: Intact Transfers Roll Left & Right (QC): 6 Sit to Lying (QC): 6 Lying to Sitting/Side of Bed(Q: 6 Sit to Stand (QC): 4 Chair/Zsa-an-Ewtma Xfer(QC): 4 Toilet Transfer (QC): 4 Car Transfer (QC): 10 CGA for sit to stand and transfers Gait Does the Patient Walk?: Yes Mode of Locomotion: Walk Anticipated Mode of Locomotion: Walk Walk 10 feet (QC): 4 Walk 50 ft with 2 Turns(QC): 4 Walk 150 ft (QC): 4 Walking 10ft/uneven surface-QC: 10 Distance: 220' Gait Assistive Device: FWW Comments/Gait Description slow but steady ambulation going straight, somewhat unsteady when turning Wheelchair Training Wheel 50 ft with 2 turns (QC): 9 Wheel 150 ft (QC): 9 Stairs 1 Step (curb) (QC): 10 4 Steps (QC): 10 12 Steps (QC): 10 Balance Sitting Static: Normal Sitting Dynamic: Normal Standing Static: Good Standing Dynamic: Fair Picking up an Object (QC): 88 Assessment/Needs Patient in bed post tx with nurse call, phone, tray, all needs met, bed alarm on. Patient has impaired mobility, strength, endurance. Patient is mostly CGA with transfers and ambulation. Cues for hand placement and safety. Rehab Potential: Fair PT [facility] Goals [facility] Goals PT [facility] Goals Time Frame: Jun 29, 2021 Roll Left & Right (QC): 6 Sit to Lying (QC): 6 Lying-Sitting on Side/Bed(QC): 6 Sit to Stand (QC): 5 Chair/Lgs-ck-Ciwkz Xfer(QC): 5 Toilet Transfer (QC): 5 Car Transfer (QC): 5 Does the Patient Walk: Yes Walk 10 feet (QC): 5 Walk 50ft with 2 Turns (QC): 5 Walk 150 ft (QC): 5 Walking 10ft on Uneven Surface: 5 1 Step (curb) (QC): 4 4 Steps (QC): 4 12 Steps (QC): 88 Picking up an Object (QC): 88 Wheel 50 feet with 2 turns (QC: 9 Wheel 150 feet: 9 PT Plan Problem List Problem List: Activity Tolerance, Functional Strength, Safety, Balance, Gait, Transfer, Bed Mobility, ROM Treatment/Plan Treatment Plan: Continue Plan of Care Treatment Plan: Education, Functional Activity Yulissa, Functional Strength, Gait, Safety, Therapeutic Exercise, Transfers Treatment Duration: Jun 29, 2021 Frequency: 6 times per week Estimated Hrs Per Day: .25 hour per day Patient and/or Family Agrees t: Yes Safety Risks/Education Patient Education: Gait Training, Transfer Techniques, Correct Positioning, Safety Issues Teaching Recipient: Patient Teaching Methods: Demonstration, Discussion Response to Teaching: Reinforcement Needed Discharge Recommendations Plan Patient will perform bed mobility and transfer training, balance and endurance training, functional strengthening, stair training, gait training, and educatio n, to improve functional mobility and independence at home. Therapy Discharge Recommendati: Scheduled Assistance, Home & Family, Post Acute PT Time/GCodes Time In: 1435 Time Out: 1510 Total Billed Treatment Time: 25 Total Billed Treatment 1 visit EVM 10' FA 15' PT eval from [id number], OT eval from [id number], PT tx from [id number] ENOCH CASTILLO PT Jun 22, 2021 15:04
--- NOTE | 2021-06-22 15:08 | Occupational Therapy Eval ---
OT Evaluation-General/PLF Medical Diagnosis Admission Date Jun 22, 2021 at 13:50 Medical Diagnosis: R Pneumothorax Onset Date: Jun 17, 2021 Therapy Diagnosis Therapy Diagnosis: Decreased ADL status Height/Weight Height (Feet): 6 Height (Inches): 0 Weight (Pounds): 169 Referral Physician: Albino Referral Reason: Evaluation/Treatment Medical History Additional Medical History R lung mass s/p biopsy, COPD, HTN, cataract. He smokes 1.5 PPD and ETOH 30 pack every 3 days. Current History ED due to dyspnea and wheezing, found to have severe R PTX. Transferred SWB status Social History Home: Single Level Current Living Status: Alone ADL-Prior Level of Function SCALE: Activities may be completed with or without assistive devices. 1-Xmzcohrvev-rtzatdl completes the activity by him/herself with no assistance from a helper. 5-Set-up or Clean-up Assistance-helper sets up or cleans up; patient completes activity. [place] assists only prior to or following the activity. 4-Supervision or Touching Assistance-helper provides verbal cues and/or touching/steadying and/or contact guard assistance as patient completes activity. Assistance may be provided throughout the activity or intermittently. 3-Partial/Moderate Assistance-helper does LESS THAN HALF the effort. [place] lifts, holds or supports trunk or limbs, but provides less than half the effort. 2-Substantial/Maximal Assistance-helper does MORE THAN HALF the effort. [place] lifts or holds trunk or limbs and provides more than half the effort. 3-Kkhbreylq-ftatyd does ALL the effort. Patient does none of the effort to complete the activity. Or, the assistance of 2 or more helpers is required for the patient to complete the activity. If activity was not attempted, code reason: 7-Patient Refused. 9-Not Applicable-not attempted and the patient did not perform the activity before the current illness, exacerbation or injury. 10-Not Attempted due to Environmental Limitations-(lack of equipment, weather restraints, etc.). 88-Not Attempted due to Medical Conditions or Safety Concerns. ADL PLOF Comments Pt unclear about PLOF, indicates he has home health assistance with showering, then later indicates he was completing independently. PLOF unknown at this time. Self Care: Unknown Functional Cognition: Unknown OT Current Status Subjective Pt just finished with Chemotherapy, agreeable to OT Tx. Pt reports "pressure" in his head with coughing. Mental Status/Objective Patient Orientation: Person, Place, Situation Current Hand Dominance: Right Upper Extremity ROM WFL Upper Extremity Strength grossly 5/5 ADL-Treatment Eating (QC): 6 (IND) Oral Hygiene (QC): 5 (per clinical judgment.) Shower/Bathe Self (QC): 4 (SBA for sponge bath) Upper Body Dressing (QC): 5 (Per clincial judgment and pt report.) Lower Body Dressing (QC): 4 (SBA) On/Off Footwear (QC): 6 (IND) Toileting Hygiene (QC): 4 (SBA in stand for clothing management. ) Other Treatments OT evaluation complete. OT/PT cotreat due to skill of 2 clinicians required which a rehabilitation program manager could not perform in order to coordinate UE/LEs, decrease fall risk, and due to pt's limitations in strength, activity tolerance, transfers/mobility and cues for safety. OT focused on UE placement, cues for sequencing and safety and ADLs, PT focused on LE placement, transfers and mobility, and gross overall movement. Pt transferred to EOB, completing sponge bath and dressing, then used FWW to perform functional mobility in hallways, CGA, 220'. Pt transferred back to bed, and supine independently. Post tx, pt in bed, call light in reach and all needs met, bed alarm activated. Education OT Patient Education: Correct positioning, Energy conservation, Modified ADL techniques, Progress toward Goal/Update tx plan, Purpose of tx/functional activities Teaching Recipient: Patient Teaching Methods: Discussion Response to Teaching: Verbalize Understanding OT Reimbursement Director Goals Retirement Goals Time Frame: Jul 07, 2021 Eating (QC): 6 Oral Hygiene (QC): 6 Toileting Hygiene (QC): 6 Shower/Bathe Self (QC): 6 Upper Body Dressing (QC): 6 Lower Body Dressing (QC): 6 On/Off Footwear (QC): 6 Additional Goals: 1-Demonstrate ADL Tasks, 2-Verbalize Understanding, 3- ImproveStrength/Yulissa 1=Demonstrate adherence to instructed precautions during ADL tasks. 2=Patient will verbalize/demonstrate understanding of assistive devices/modifications for ADL. 3=Patient will improve strength/tolerance for activity to enable patient to perform ADL's. OT Education/Plan Problem List/Assessment Assessment: Decreased Activ Tolerance, Decreased UE Strength, Impaired Funct Balance, Impaired I ADL's, Impaired Self-Care Skills Discharge Recommendations Plan/Recommendations: Continue POC Treatment Plan/Plan of Care Patient would benefit from OT for education, treatment and training to promote independence in ADL's, mobility, safety and/or upper extremity function for ADL's. Plan of Care: ADL Retraining, Functional Mobility, UE Funct Exercise/Act Treatment Duration: Jul 07, 2021 Frequency: 5 times per week Estimated Hrs Per Day: .25 hour per day Time/GCodes Start Time: 14:45 Stop Time: 15:10 Total Time Billed (hr/min): 25 Billed Treatment Time 1, EVM (10'), ADL (15') MECHELLE GUTHRIE OT Jun 22, 2021 15:08
[2021-06-22 17:36] VITALS: BP 128/69
[2021-06-22] MEDS: RT-ALBUTEROL/IPRATROPIUM 3 ML (DUONEB) VIAL INH SCH (20:16)
[2021-06-22 20:25] VITALS: BP 128/69
[2021-06-22] MEDS: polyethylene glycoL POWDER 17 GM (MIRALAX) PACK PO SCH (21:37)
[2021-06-22] MEDS: ENOXAPARIN 40 MG/0.4 ML (LOVENOX) SYR SC SCH (21:37)
[2021-06-22] MEDS: FAMOTIDINE 20 MG (PEPCID) TABLET PO SCH (21:38)
[2021-06-22] MEDS: SENNA W/DOCUSATE (SENOKOT S) TABLET PO SCH (21:38)
[2021-06-22] MEDS: MONTELUKAST 10 MG (SINGULAIR) TAB PO SCH (21:38)
[2021-06-22] MEDS: diphenhydrAMINE 25 MG TAB (BENADRYL) PO PRN (21:41)
[2021-06-22] MEDS: RT-ALBUTEROL/IPRATROPIUM 3 ML (DUONEB) VIAL INH PRN (23:25)
[2021-06-23 06:06] VITALS: BP 145/79
[2021-06-23] MEDS: predniSONE 20 MG TAB PO SCH (06:15)
[2021-06-23] MEDS: RT--FLUTICASONE/SALMETEROL 113-14 (AIRDUO RespiCLICK) IH SCH ×2 (08:12→21:57)
[2021-06-23] MEDS: RT-ALBUTEROL/IPRATROPIUM 3 ML (DUONEB) VIAL INH SCH ×2 (08:12→21:57)
[2021-06-23] MEDS: FAMOTIDINE 20 MG (PEPCID) TABLET PO SCH ×2 (08:43→20:46)
[2021-06-23] MEDS: polyethylene glycoL POWDER 17 GM (MIRALAX) PACK PO SCH ×2 (08:43→20:46)
[2021-06-23] MEDS: SENNA W/DOCUSATE (SENOKOT S) TABLET PO SCH ×2 (08:44→20:46)
[2021-06-23] MEDS: amLODIPine 5 MG (NORVASC) TAB PO SCH (08:44)
--- NOTE | 2021-06-23 09:31 | Occupational Ther Daily Note ---
OT Current Status-Daily Note Subjective Pt alert, lying in bed. Increased edema in L hand and arm, educated pt on exercises to decrease edema in hand. Nrsg reported to MAR that pt has precautions of bending at waist above ~145*. Pt agrees to therapy. Mental Status/Objective Patient Orientation: Person, Place, Time, Situation Attachments: IV ADL-Treatment Educated pt on LB dressing equipment and demonstrated use. Pt fatigued from chemo and declines to try AE though verbalized understanding. Educated pt also on figure 4 technique to adhere to precautions, pt is able to complete this technique. Discussed pt's home environment and pt stated that he thinks that he is supposed to go to [facility] for assisted living. Therapy Code Descriptions/Definitions Functional [place] Measure: 0=Not Assessed/NA 4=Minimal Assistance 1=Total Assistance 5=Supervision or Setup 2=Maximal Assistance 6=Modified [place] 3=Moderate Assistance 7=Complete IndependenceSCALE: Activities may be completed with or without assistive devices. 3-Vggtswihkx-khafvks completes the activity by him/herself with no assistance from a helper. 5-Set-up or Clean-up Assistance-helper sets up or cleans up; patient completes activity. [place] assists only prior to or following the activity. 4-Supervision or Touching Assistance-helper provides verbal cues and/or touching/steadying and/or contact guard assistance as patient completes activity. Assistance may be provided throughout the activity or intermittently. 3-Partial/Moderate Assistance-helper does LESS THAN HALF the effort. [place] lifts, holds or supports trunk or limbs, but provides less than half the effort. 2-Substantial/Maximal Assistance-helper does MORE THAN HALF the effort. [place] lifts or holds trunk or limbs and provides more than half the effort. 3-Enhrqmamh-akbcvj does ALL the effort. Patient does none of the effort to complete the activity. Or, the assistance of 2 or more helpers is required for the patient to complete the activity. If activity was not attempted, code reason: 7-Patient Refused. 9-Not Applicable-not attempted and the patient did not perform the activity before the current illness, exacerbation or injury. 10-Not Attempted due to Environmental Limitations-(lack of equipment, weather restraints, etc.). 88-Not Attempted due to Medical Conditions or Safety Concerns. Other Treatment Pt completed 1 set 15reps bicep curls against gravity, 1 set 10 reps of shldr int/ext rotation and modified shldr abd/add. Pt tolerated though coughing increased and pt fatigues quickly. After session, pt lying in bed with call light/phone in reach. All needs met in room. OT Exercise Planner Goals [facility] Goals Time Frame: Jul 07, 2021 Eating (QC): 6 Oral Hygiene (QC): 6 Toileting Hygiene (QC): 6 Shower/Bathe Self (QC): 6 Upper Body Dressing (QC): 6 Lower Body Dressing (QC): 6 On/Off Footwear (QC): 6 Additional Goals: 1-Demonstrate ADL Tasks, 2-Verbalize Understanding, 3- ImproveStrength/Yulissa 1=Demonstrate adherence to instructed precautions during ADL tasks. 2=Patient will verbalize/demonstrate understanding of assistive devices/modifications for ADL. 3=Patient will improve strength/tolerance for activity to enable patient to perform ADL's. OT Education/Plan Problem List/Assessment Assessment: Decreased Activ Tolerance, Decreased UE Strength, Impaired Self- Care Skills Discharge Recommendations Plan/Recommendations: Continue POC Treatment Plan/Plan of Care Patient would benefit from OT for education, treatment and training to promote independence in ADL's, mobility, safety and/or upper extremity function for ADL's. Plan of Care: ADL Retraining, Functional Mobility, UE Funct Exercise/Act Treatment Duration: Jul 07, 2021 Frequency: 5 times per week Estimated Hrs Per Day: .25 hour per day Rehab Potential: Fair Time/GCodes Start Time: 09:09 Stop Time: 09:24 Total Time Billed (hr/min): 15 Billed Treatment Time 1 visit-ADL 1 (15 min) MARE BANKS Jun 23, 2021 09:31
--- NOTE | 2021-06-23 11:08 | Progress Note ---
Subjective Subjective/Events-last exam States he is feeling tired, wanting something to help him sleep, usually uses an OTC off brand at home, doesn't know what it is. Gets short of breath with some things but is okay laying down at rest. Objective Exam Last Set of Vital Signs Vital Signs Date Time Temp Pulse Resp B/P (MAP) Pulse Ox O2 Delivery O2 Flow Rate FiO2 06/23/21 09:00 Room Air 06/23/21 08:14 98 06/23/21 06:06 36.2 83 18 145/79 (101) Capillary Refill : I&O Intake and Output 06/23/21 00:00 Intake Total 1260 ml Output Total 1000 ml Balance 260 ml Intake Oral 1260 ml Output Urine Total 1000 ml General: Alert, No Acute Distress Lungs: Clear to Auscultation, Normal Air Movement Heart: Regular Rate, No Murmurs Extremities: Other (edema of right arm and neck/face) Neuro: Normal Speech Psych/Mental Status: Mood NL Assessment/Plan Assessment/Plan (1) Non-small cell cancer of right lung Status: Chronic Assessment & Plan: Radiation and chemo per Oncology, recent pneumo after biopsy resolved during hospital stay after thoravent. (2) Hyponatremia Status: Acute Assessment & Plan: Secondary to lung cancer. 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
--- NOTE | 2021-06-23 11:28 | Physical Therapy Daily Note ---
PT Daily Note-Current Subjective Patient agrees to PT. No c/o at this time. Mental Status Patient Orientation: Normal For Age Transfers SCALE: Activities may be completed with or without assistive devices. 5-Vitpunhxdl-wydhdwq completes the activity by him/herself with no assistance from a helper. 5-Set-up or Clean-up Assistance-helper sets up or cleans up; patient completes activity. [place] assists only prior to or following the activity. 4-Supervision or Touching Assistance-helper provides verbal cues and/or touching/steadying and/or contact guard assistance as patient completes activity. Assistance may be provided throughout the activity or intermittently. 3-Partial/Moderate Assistance-helper does LESS THAN HALF the effort. [place] lifts, holds or supports trunk or limbs, but provides less than half the effort. 2-Substantial/Maximal Assistance-helper does MORE THAN HALF the effort. [place] lifts or holds trunk or limbs and provides more than half the effort. 5-Iudevkjlj-blrxbz does ALL the effort. Patient does none of the effort to complete the activity. Or, the assistance of 2 or more helpers is required for the patient to complete the activity. If activity was not attempted, code reason: 7-Patient Refused. 9-Not Applicable-not attempted and the patient did not perform the activity before the current illness, exacerbation or injury. 10-Not Attempted due to Environmental Limitations-(lack of equipment, weather restraints, etc.). 88-Not Attempted due to Medical Conditions or Safety Concerns. Roll Left & Right (QC): 6 Sit to Lying (QC): 6 Lying to Sitting/Side of Bed(Q: 6 Sit to Stand (QC): 4 Gait Training Distance: 300' Walk 10 feet (QC): 4 Walk 50 ft with 2 Turns(QC): 4 Walk 150 ft (QC): 4 Gait Assistive Device: FWW SBA for safety/functional gait sequence Exercises Seated Therapy Exercises: Ankle pumps, Long arc quads Seated Reps: 15 Assessment Patient requires time to complete functional tasks. Patient tolerated treatment well and returned to bed with needs met. PT Framing Mechanic Goals Framing Mechanic Goals PT Group Home Goals Time Frame: Jun 29, 2021 Roll Left & Right (QC): 6 Sit to Lying (QC): 6 Lying-Sitting on Side/Bed(QC): 6 Sit to Stand (QC): 5 Chair/Uyw-bk-Qmmvb Xfer(QC): 5 Toilet Transfer (QC): 5 Car Transfer (QC): 5 Does the Patient Walk: Yes Walk 10 feet (QC): 5 Walk 50ft with 2 Turns (QC): 5 Walk 150 ft (QC): 5 Walking 10ft on Uneven Surface: 5 1 Step (curb) (QC): 4 4 Steps (QC): 4 12 Steps (QC): 88 Picking up an Object (QC): 88 Wheel 50 feet with 2 turns (QC: 9 Wheel 150 feet: 9 PT Plan Treatment/Plan Treatment Plan: Continue Plan of Care Treatment Plan: Education, Functional Activity Yulissa, Functional Strength, Ga it, Safety, Therapeutic Exercise, Transfers Treatment Duration: Jun 29, 2021 Frequency: 6 times per week Estimated Hrs Per Day: .25 hour per day Patient and/or Family Agrees t: Yes Time/GCodes Time In: 1020 Time Out: 1036 Total Billed Treatment Time: 16 Total Billed Treatment 1 visit FA 16 min LEANDRO PHILLIPS PT Jun 23, 2021 11:28
[2021-06-23] MEDS: RT-ALBUTEROL/IPRATROPIUM 3 ML (DUONEB) VIAL INH PRN (15:08)
[2021-06-23 18:00] VITALS: BP 122/76
[2021-06-23] MEDS: ENOXAPARIN 40 MG/0.4 ML (LOVENOX) SYR SC SCH (20:46)
[2021-06-23] MEDS: ZOLPIDEM 5 MG (AMBIEN) TAB PO SCH (20:46)
[2021-06-23] MEDS: MONTELUKAST 10 MG (SINGULAIR) TAB PO SCH (20:46)
[2021-06-24] MEDS: ACETAMINOPHEN 325 MG TABLET PO PRN (05:00)
[2021-06-24 05:02] VITALS: BP 133/85
[2021-06-24 05:19] LABS: HEMATOCRIT 39 % (40-54); HEMOGLOBIN 13.5 g/dL (13.3-17.7); MEAN CORPUSCULAR HEMOGLOBIN 27 pg (25-34); MEAN CORPUSCULAR HGB CONC 35 g/dL (32-36); MEAN CORPUSCULAR VOLUME 77 fL (80-99); PLATELET COUNT 247 10^3/uL (130-400); WHITE BLOOD COUNT 12.4 10^3/uL (4.3-11.0)
[2021-06-24 05:34] LABS: POTASSIUM 3.9 MMOL/L (3.6-5.0)
[2021-06-24 05:35] LABS: CALCIUM 8.4 MG/DL (8.5-10.1)
[2021-06-24 05:40] LABS: CREATININE SERUM 0.67 MG/DL (0.60-1.30)
[2021-06-24] MEDS: predniSONE 20 MG TAB PO SCH (06:13)
[2021-06-24] MEDS: RT--FLUTICASONE/SALMETEROL 113-14 (AIRDUO RespiCLICK) IH SCH ×2 (07:49→20:25)
[2021-06-24] MEDS: RT-ALBUTEROL/IPRATROPIUM 3 ML (DUONEB) VIAL INH SCH ×2 (07:49→20:24)
[2021-06-24] MEDS: polyethylene glycoL POWDER 17 GM (MIRALAX) PACK PO SCH ×2 (08:43→20:32)
--- NOTE | 2021-06-24 08:44 | Physical Therapy Daily Note ---
PT Daily Note-Current Subjective States that he is still coughing a lot. Transfers SCALE: Activities may be completed with or without assistive devices. 5-Pvesdtiyue-apezann completes the activity by him/herself with no assistance from a helper. 5-Set-up or Clean-up Assistance-helper sets up or cleans up; patient completes activity. [place] assists only prior to or following the activity. 4-Supervision or Touching Assistance-helper provides verbal cues and/or touching/steadying and/or contact guard assistance as patient completes activity. Assistance may be provided throughout the activity or intermittently. 3-Partial/Moderate Assistance-helper does LESS THAN HALF the effort. [place] lifts, holds or supports trunk or limbs, but provides less than half the effort. 2-Substantial/Maximal Assistance-helper does MORE THAN HALF the effort. [place] lifts or holds trunk or limbs and provides more than half the effort. 7-Lofyvjwoa-raukvk does ALL the effort. Patient does none of the effort to complete the activity. Or, the assistance of 2 or more helpers is required for the patient to complete the activity. If activity was not attempted, code reason: 7-Patient Refused. 9-Not Applicable-not attempted and the patient did not perform the activity before the current illness, exacerbation or injury. 10-Not Attempted due to Environmental Limitations-(lack of equipment, weather restraints, etc.). 88-Not Attempted due to Medical Conditions or Safety Concerns. Roll Left & Right (QC): 5 Sit to Lying (QC): 5 Lying to Sitting/Side of Bed(Q: 5 Sit to Stand (QC): 5 Gait Training Does the Patient Walk?: Yes Distance: 300' Walk 10 feet (QC): 5 Walk 50 ft with 2 Turns(QC): 5 Walk 150 ft (QC): 5 Gait Persons Needed: 1 Gait Assistive Device: FWW Assessment Current Status: Good Progress Patient still coughing a lot. PT Classification Counselor Goals Group Home Goals PT Group Home Goals Time Frame: Jun 29, 2021 Roll Left & Right (QC): 6 Sit to Lying (QC): 6 Lying-Sitting on Side/Bed(QC): 6 Sit to Stand (QC): 5 Chair/Trb-wk-Cikxu Xfer(QC): 5 Toilet Transfer (QC): 5 Car Transfer (QC): 5 Does the Patient Walk: Yes Walk 10 feet (QC): 5 Walk 50ft with 2 Turns (QC): 5 Walk 150 ft (QC): 5 Walking 10ft on Uneven Surface: 5 1 Step (curb) (QC): 4 4 Steps (QC): 4 12 Steps (QC): 88 Picking up an Object (QC): 88 Wheel 50 feet with 2 turns (QC: 9 Wheel 150 feet: 9 PT Plan Treatment/Plan Treatment Plan: Continue Plan of Care Treatment Plan: Education, Functional Activity Yulissa, Functional Strength, Gait, Safety, Therapeutic Exercise, Transfers Treatment Duration: Jun 29, 2021 Frequency: 6 times per week Estimated Hrs Per Day: .25 hour per day Patient and/or Family Agrees t: Yes Time/GCodes Time In: 819 Time Out: 08 Total Billed Treatment Time: 15 Total Billed Treatment 1, GT x 15' JEREMI HAYDEN PT Jun 24, 2021 08:44
[2021-06-24] MEDS: amLODIPine 5 MG (NORVASC) TAB PO SCH (08:45)
[2021-06-24] MEDS: FAMOTIDINE 20 MG (PEPCID) TABLET PO SCH ×2 (08:45→20:30)
[2021-06-24] MEDS: SENNA W/DOCUSATE (SENOKOT S) TABLET PO SCH ×2 (08:45→20:30)
[2021-06-24] MEDS: SODIUM CHLORIDE 1 GM TABLET PO SCH ×2 (09:10→20:30)
--- NOTE | 2021-06-24 09:35 | Progress Note - Hospitalist ---
Subjective HPI/CC On Admission Date Seen by Provider: Jun 24, 2021 Time Seen by Provider: 12:00 Subjective/Events-last exam Patient doing a lot better Less shortness of breath Sodium level 120 Fluid restriction and salt tablets ordered Review of Systems General: Fatigue, Malaise Objective Exam Vital Signs Vital Signs Date Time Temp Pulse Resp B/P (MAP) Pulse Ox O2 Delivery O2 Flow Rate FiO2 06/24/21 17:18 36.6 85 20 134/85 (101) 96 Room Air Capillary Refill : General Appearance: No Apparent Distress, WD/WN, Chronically ill Respiratory: Lungs Clear, Normal Breath Sounds, Decreased Breath Sounds Cardiovascular: Regular Rate, Rhythm Neurologic/Psychiatric: Alert, Oriented x3, No Motor/Sensory Deficits, Normal Mood/Affect Results/Procedures Lab Laboratory Tests 06/24/21 05:00 Patient resulted labs reviewed. 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
[2021-06-24] MEDS: RT-ALBUTEROL/IPRATROPIUM 3 ML (DUONEB) VIAL INH PRN (14:33)
[2021-06-24 17:18] VITALS: BP 134/85
[2021-06-24] MEDS: ZOLPIDEM 5 MG (AMBIEN) TAB PO SCH (20:30)
[2021-06-24] MEDS: MONTELUKAST 10 MG (SINGULAIR) TAB PO SCH (20:30)
[2021-06-24] MEDS: ENOXAPARIN 40 MG/0.4 ML (LOVENOX) SYR SC SCH (20:30)
[2021-06-25 05:45] VITALS: BP 113/68
[2021-06-25 06:43] LABS: BASOPHILS % (AUTO) 0 % (0-10); EOSINOPHILS # (AUTO) 0.1 10^3/uL (0.0-0.3); EOSINOPHILS % (AUTO) 1 % (0-10); HEMATOCRIT 39 % (40-54); HEMOGLOBIN 13.7 g/dL (13.3-17.7); LYMPHOCYTES # (AUTO) 0.6 10^3/uL (1.0-4.0); LYMPHOCYTES % (AUTO) 6 % (12-44); MEAN CORPUSCULAR HEMOGLOBIN 27 pg (25-34); MEAN CORPUSCULAR HGB CONC 35 g/dL (32-36); MEAN CORPUSCULAR VOLUME 77 fL (80-99); MEAN PLATELET VOLUME 9.3 fL (9.0-12.2); MONOCYTES # (AUTO) 0.8 10^3/uL (0.0-1.0); MONOCYTES % (AUTO) 8 % (0-12); NEUTROPHILS % (AUTO) 84 % (42-75); PLATELET COUNT 220 10^3/uL (130-400); WHITE BLOOD COUNT 10.7 10^3/uL (4.3-11.0)
[2021-06-25] MEDS: ACETAMINOPHEN 325 MG TABLET PO PRN (06:48)
[2021-06-25 06:54] LABS: ALBUMIN 2.9 GM/DL (3.2-4.5)
[2021-06-25 06:55] LABS: POTASSIUM 3.9 MMOL/L (3.6-5.0)
[2021-06-25 06:56] LABS: CALCIUM 8.2 MG/DL (8.5-10.1)
[2021-06-25 06:57] LABS: TOTAL PROTEIN 5.9 GM/DL (6.4-8.2)
[2021-06-25 07:01] LABS: CREATININE SERUM 0.62 MG/DL (0.60-1.30)
--- NOTE | 2021-06-25 08:18 | Progress Note - Hospitalist ---
Subjective HPI/CC On Admission Date Seen by Provider: Jun 25, 2021 Time Seen by Provider: 12:30 Subjective/Events-last exam Patient doing about the same Cough is still present Antitussives ordered Sodium 117 so we will start hypertonic saline Salt tablets and fluid restriction in place Review of Systems General: Fatigue, Malaise Pulmonary: Dyspnea, Cough Objective Exam Vital Signs Vital Signs Date Time Temp Pulse Resp B/P (MAP) Pulse Ox O2 Delivery O2 Flow Rate FiO2 06/25/21 18:56 92 Room Air 06/25/21 05:45 36.6 88 22 113/68 (83) Capillary Refill : General Appearance: No Apparent Distress, WD/WN, Chronically ill Respiratory: No Accessory Muscle Use, No Respiratory Distress, Decreased Breath Sounds Cardiovascular: Regular Rate, Rhythm Neurologic/Psychiatric: Alert, Oriented x3, No Motor/Sensory Deficits, Normal Mood/Affect Results/Procedures Lab Laboratory Tests 06/25/21 06:35 Patient resulted labs reviewed. 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
[2021-06-25] MEDS: RT-ALBUTEROL/IPRATROPIUM 3 ML (DUONEB) VIAL INH SCH ×2 (08:35→18:56)
[2021-06-25] MEDS: RT--FLUTICASONE/SALMETEROL 113-14 (AIRDUO RespiCLICK) IH SCH ×2 (08:35→18:56)
[2021-06-25] MEDS: amLODIPine 5 MG (NORVASC) TAB PO SCH (08:51)
[2021-06-25] MEDS: SODIUM CHLORIDE 3% 500 ML IV SCH (08:51)
[2021-06-25] MEDS: SENNA W/DOCUSATE (SENOKOT S) TABLET PO SCH ×2 (08:52→22:08)
[2021-06-25] MEDS: polyethylene glycoL POWDER 17 GM (MIRALAX) PACK PO SCH ×2 (08:52→22:07)
[2021-06-25] MEDS: FAMOTIDINE 20 MG (PEPCID) TABLET PO SCH ×2 (08:52→22:08)
[2021-06-25] MEDS: SODIUM CHLORIDE 1 GM TABLET PO SCH ×2 (09:44→22:09)
[2021-06-25] MEDS ORDERED: CHLORASEPTIC LOZENGE MM PRN (13:00)
[2021-06-25 18:00] VITALS: BP 118/73
[2021-06-25] MEDS: ZOLPIDEM 5 MG (AMBIEN) TAB PO SCH (22:08)
[2021-06-25] MEDS: ENOXAPARIN 40 MG/0.4 ML (LOVENOX) SYR SC SCH (22:08)
[2021-06-25] MEDS: MONTELUKAST 10 MG (SINGULAIR) TAB PO SCH (22:08)
[2021-06-25] MEDS: ALPRAZolam 0.25 MG (XANAX) TAB PO PRN (22:22)
[2021-06-25] MEDS: HYDROcodone/APAP 5 MG/325 MG (LORTAB) TAB PO PRN (22:22)
[2021-06-26 06:25] VITALS: BP 131/88
[2021-06-26 06:57] LABS: BASOPHILS % (AUTO) 0 % (0-10); EOSINOPHILS # (AUTO) 0.1 10^3/uL (0.0-0.3); EOSINOPHILS % (AUTO) 1 % (0-10); HEMATOCRIT 36 % (40-54); HEMOGLOBIN 12.8 g/dL (13.3-17.7); LYMPHOCYTES # (AUTO) 0.6 10^3/uL (1.0-4.0); LYMPHOCYTES % (AUTO) 7 % (12-44); MEAN CORPUSCULAR HEMOGLOBIN 27 pg (25-34); MEAN CORPUSCULAR HGB CONC 36 g/dL (32-36); MEAN CORPUSCULAR VOLUME 77 fL (80-99); MEAN PLATELET VOLUME 8.9 fL (9.0-12.2); MONOCYTES # (AUTO) 0.7 10^3/uL (0.0-1.0); MONOCYTES % (AUTO) 8 % (0-12); NEUTROPHILS # (AUTO) 7.3 10^3/uL (1.8-7.8); NEUTROPHILS % (AUTO) 83 % (42-75); PLATELET COUNT 186 10^3/uL (130-400); WHITE BLOOD COUNT 8.9 10^3/uL (4.3-11.0)
[2021-06-26] MEDS: RT-ALBUTEROL/IPRATROPIUM 3 ML (DUONEB) VIAL INH SCH ×2 (07:11→19:14)
[2021-06-26] MEDS: RT--FLUTICASONE/SALMETEROL 113-14 (AIRDUO RespiCLICK) IH SCH ×2 (07:13→19:14)
[2021-06-26 07:22] LABS: ALBUMIN 2.8 GM/DL (3.2-4.5); POTASSIUM 3.6 MMOL/L (3.6-5.0)
[2021-06-26 07:24] LABS: TOTAL PROTEIN 5.6 GM/DL (6.4-8.2)
[2021-06-26 07:26] LABS: BILIRUBIN,TOTAL 1.4 MG/DL (0.1-1.0)
[2021-06-26 07:28] LABS: CREATININE SERUM 0.59 MG/DL (0.60-1.30)
[2021-06-26 07:47] LABS: ATYPICAL LYMPHOCYTES 3 %; LYMPHOCYTES % (MANUAL) 5 %; MONOCYTES % (MANUAL) 9 %; NEUTROPHILS % (MANUAL) 83 %
[2021-06-26 07:48] LABS: ANISOCYTOSIS SLIGHT; MICROCYTOSIS SLIGHT
[2021-06-26] MEDS: fentaNYL INJ 100 MCG/2 ML AMP IV PRN (08:11)
[2021-06-26] MEDS: FAMOTIDINE 20 MG (PEPCID) TABLET PO SCH ×2 (08:15→22:27)
[2021-06-26] MEDS: SENNA W/DOCUSATE (SENOKOT S) TABLET PO SCH ×2 (08:15→22:26)
[2021-06-26] MEDS: SODIUM CHLORIDE 1 GM TABLET PO SCH ×2 (08:15→22:28)
[2021-06-26] MEDS: SODIUM CHLORIDE 3% 500 ML IV SCH (08:15)
[2021-06-26] MEDS: amLODIPine 5 MG (NORVASC) TAB PO SCH (08:15)
[2021-06-26] MEDS: polyethylene glycoL POWDER 17 GM (MIRALAX) PACK PO SCH ×2 (08:18→22:26)
--- NOTE | 2021-06-26 11:43 | Physical Therapy Daily Note ---
PT Daily Note-Current Subjective Patient agrees to PT. Patient continues to have deep, productive cough. Mental Status Patient Orientation: Normal For Age Attachments: Galvin Catheter, IV Transfers SCALE: Activities may be completed with or without assistive devices. 6-Erycchibrt-klkyuaa completes the activity by him/herself with no assistance from a helper. 5-Set-up or Clean-up Assistance-helper sets up or cleans up; patient completes activity. [place] assists only prior to or following the activity. 4-Supervision or Touching Assistance-helper provides verbal cues and/or touching/steadying and/or contact guard assistance as patient completes activity. Assistance may be provided throughout the activity or intermittently. 3-Partial/Moderate Assistance-helper does LESS THAN HALF the effort. [place] lifts, holds or supports trunk or limbs, but provides less than half the effort. 2-Substantial/Maximal Assistance-helper does MORE THAN HALF the effort. [place] lifts or holds trunk or limbs and provides more than half the effort. 9-Kmxwdimoh-njchle does ALL the effort. Patient does none of the effort to complete the activity. Or, the assistance of 2 or more helpers is required for the patient to complete the activity. If activity was not attempted, code reason: 7-Patient Refused. 9-Not Applicable-not attempted and the patient did not perform the activity before the current illness, exacerbation or injury. 10-Not Attempted due to Environmental Limitations-(lack of equipment, weather restraints, etc.). 88-Not Attempted due to Medical Conditions or Safety Concerns. Lying to Sitting/Side of Bed(Q: 6 Sit to Stand (QC): 4 Chair/Apq-dp-Qnete Xfer(QC): 4 SBA for safety Gait Training Does the Patient Walk?: Yes Distance: 200' Walk 10 feet (QC): 4 Walk 50 ft with 2 Turns(QC): 4 Walk 150 ft (QC): 4 Gait Assistive Device: FWW slow, steady, extended UE's with FWW use Assessment Patient up in recliner with needs met. Patient does determine intensity of session. Increase activity as patient tolerates. PT Nursing Home Goals Nursing Home Goals PT Nursing Home Goals Time Frame: Jun 29, 2021 Roll Left & Right (QC): 6 Sit to Lying (QC): 6 Lying-Sitting on Side/Bed(QC): 6 Sit to Stand (QC): 5 Chair/Nvu-pm-Jnrjv Xfer(QC): 5 Toilet Transfer (QC): 5 Car Transfer (QC): 5 Does the Patient Walk: Yes Walk 10 feet (QC): 5 Walk 50ft with 2 Turns (QC): 5 Walk 150 ft (QC): 5 Walking 10ft on Uneven Surface: 5 1 Step (curb) (QC): 4 4 Steps (QC): 4 12 Steps (QC): 88 Picking up an Object (QC): 88 Wheel 50 feet with 2 turns (QC: 9 Wheel 150 feet: 9 PT Plan Treatment/Plan Treatment Plan: Continue Plan of Care Treatment Plan: Education, Functional Activity Yulissa, Functional Strength, Gait, Safety, Therapeutic Exercise, Transfers Treatment Duration: Jun 29, 2021 Frequency: 6 times per week Estimated Hrs Per Day: .25 hour per day Patient and/or Family Agrees t: Yes Time/GCodes Time In: 1050 Time Out: 1105 Total Billed Treatment Time: 15 Total Billed Treatment 1 visit FA 15 min LEANDRO PHILLIPS PT Jun 26, 2021 11:43
--- NOTE | 2021-06-26 11:57 | Occupational Ther Daily Note ---
OT Current Status-Daily Note Subjective Pt alert, lying in bed. Pt agrees to therapy. No c/o pain. Mental Status/Objective Patient Orientation: Person, Place, Time, Situation Attachments: Galvin Catheter, IV ADL-Treatment Pt agrees to sponge bath. Ambulates with FWW SBA due to IV and Galvin catheter. Pt able to complete sponge bath with supervision while sitting at sink. Pt completes figure 4 technique to reach feet to bath and dress, does not bend over. Using clinical judgment, pt will be able to complete upper body dressing with set up and lower body dressing with supervision. Set up to don/doff socks. Independent with grooming and to complete oral care to cleanse mouth due to no teeth. After therapy, pt lying in bed with call light/phone in reach. All needs met in room. Therapy Code Descriptions/Definitions Functional [place] Measure: 0=Not Assessed/NA 4=Minimal Assistance 1=Total Assistance 5=Supervision or Setup 2=Maximal Assistance 6=Modified [place] 3=Moderate Assistance 7=Complete IndependenceSCALE: Activities may be completed with or without assistive devices. 8-Tsuprmkmwg-fjwvsod completes the activity by him/herself with no assistance from a helper. 5-Set-up or Clean-up Assistance-helper sets up or cleans up; patient completes activity. [place] assists only prior to or following the activity. 4-Supervision or Touching Assistance-helper provides verbal cues and/or touching/steadying and/or contact guard assistance as patient completes activity. Assistance may be provided throughout the activity or intermittently. 3-Partial/Moderate Assistance-helper does LESS THAN HALF the effort. [place] lifts, holds or supports trunk or limbs, but provides less than half the effort. 2-Substantial/Maximal Assistance-helper does MORE THAN HALF the effort. [place] lifts or holds trunk or limbs and provides more than half the effort. 3-Eszpugjma-yajctz does ALL the effort. Patient does none of the effort to complete the activity. Or, the assistance of 2 or more helpers is required for the patient to complete the activity. If activity was not attempted, code reason: 7-Patient Refused. 9-Not Applicable-not attempted and the patient did not perform the activity be fore the current illness, exacerbation or injury. 10-Not Attempted due to Environmental Limitations-(lack of equipment, weather restraints, etc.). 88-Not Attempted due to Medical Conditions or Safety Concerns. Eating (QC): 6 (per clinical judgment) Oral Hygiene (QC): 6 Shower/Bathe Self (QC): 4 Upper Body Dressing (QC): 5 Lower Body Dressing (QC): 4 On/Off Footwear: 5 OT Retirement Goals Mold Closer Goals Time Frame: Jul 07, 2021 Eating (QC): 6 Oral Hygiene (QC): 6 Toileting Hygiene (QC): 6 Shower/Bathe Self (QC): 6 Upper Body Dressing (QC): 6 Lower Body Dressing (QC): 6 On/Off Footwear (QC): 6 Additional Goals: 1-Demonstrate ADL Tasks, 2-Verbalize Understanding, 3- ImproveStrength/Yulissa 1=Demonstrate adherence to instructed precautions during ADL tasks. 2=Patient will verbalize/demonstrate understanding of assistive devices/modifications for ADL. 3=Patient will improve strength/tolerance for activity to enable patient to perform ADL's. OT Education/Plan Problem List/Assessment Assessment: Decreased Activ Tolerance, Impaired Self-Care Skills Discharge Recommendations Plan/Recommendations: Continue POC Treatment Plan/Plan of Care Patient would benefit from OT for education, treatment and training to promote independence in ADL's, mobility, safety and/or upper extremity function for ADL's. Plan of Care: ADL Retraining, Functional Mobility, UE Funct Exercise/Act Treatment Duration: Jul 07, 2021 Frequency: 5 times per week Estimated Hrs Per Day: .25 hour per day Rehab Potential: Fair Time/GCodes Start Time: 10:03 Stop Time: 10:26 Total Time Billed (hr/min): 23 Billed Treatment Time 1 visit-ADL 2 (23 min) MARE BANKS Jun 26, 2021 11:57
[2021-06-26 17:10] VITALS: BP 137/90
--- NOTE | 2021-06-26 21:04 | Progress Note ---
Subjective Subjective/Events-last exam Patient states that he feels ok this AM. Denies any pain at this time. States that the swelling has improved some. Review of Systems Pulmonary: Dyspnea, Cough Cardiovascular: Edema; No: Chest Pain, Palpitations Gastrointestinal: No: Nausea, Vomiting, Abdominal Pain, Diarrhea, Constipation Musculoskeletal: arm pain (swollen) Neurological: Weakness Objective Exam Last Set of Vital Signs Vital Signs Date Time Temp Pulse Resp B/P (MAP) Pulse Ox O2 Delivery O2 Flow Rate FiO2 06/26/21 19:14 98 Room Air 06/26/21 17:10 36.9 94 23 137/90 (106) Capillary Refill : I&O Intake and Output 06/26/21 00:00 Intake Total 1100 ml Output Total 1775 ml Balance -675 ml Intake Oral 1100 ml Output Urine Total 1775 ml General: Alert, Oriented X3, Cooperative, No Acute Distress HEENT: Mucous Memb Moist/[place] Neck: Other (Swollen neck and face) Heart: Regular Rate, No Murmurs Abdomen: Normal Bowel Sounds, Soft Extremities: Other (2+ pitting edema in UE bilaterally) Results/Procedures Lab Laboratory Tests 06/26/21 06:30: White Blood Count 8.9, Red Blood Count 4.70, Hemoglobin 12.8L, Hematocrit 36L, Mean Corpuscular Volume 77L, Mean Corpuscular Hemoglobin 27, Mean Corpuscular Hemoglobin Concent 36, Red Cell Distribution Width 14.3, Platelet Count 186, Mean Platelet Volume 8.9L, Immature Granulocyte % (Auto) 1, Neutrophils (%) (Aut o) 83H, Lymphocytes (%) (Auto) 7L, Monocytes (%) (Auto) 8, Eosinophils (%) (Auto) 1, Basophils (%) (Auto) 0, Neutrophils # (Auto) 7.3, Lymphocytes # (Auto) 0.6L, Monocytes # (Auto) 0.7, Eosinophils # (Auto) 0.1, Basophils # (Auto) 0.0, Immature Granulocyte # (Auto) 0.1, Neutrophils % (Manual) 83, Lymphocytes % (Manual) 5, Monocytes % (Manual) 9, Atypical Lymphocytes 3, Anisocytosis SLIGHT, Microcytosis SLIGHT, Macrocytosis SLIGHT, Sodium Level 118*L, Potassium Level 3.6, Chloride Level 89L, Carbon Dioxide Level 25, Anion Gap 4L, Blood Urea Nitrogen 9, Creatinine 0.59L, Estimat Glomerular Filtration Rate 140, BUN/Creatinine Ratio 15, Glucose Level 96, Calcium Level 8.0L, Corrected Calcium 9.0, Total Bilirubin 1.4H, Aspartate Amino Transf (AST/SGOT) 61H, Alanine Aminotransferase (ALT/SGPT) 200H, Alkaline Phosphatase 60, Total Protein 5.6L, Albumin 2.8L Assessment/Plan Assessment/Plan (1) Non-small cell cancer of right lung Status: Chronic Assessment & Plan: Radiation and chemo per Oncology, recent pneumo after biopsy resolved during hospital stay after thoravent. 06/26: Completed round 1 chemo and currently getting radiation (2) Hyponatremia Status: Acute Assessment & Plan: Secondary to lung cancer. 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
[2021-06-26] MEDS: ZOLPIDEM 5 MG (AMBIEN) TAB PO SCH (22:27)
[2021-06-26] MEDS: MONTELUKAST 10 MG (SINGULAIR) TAB PO SCH (22:27)
[2021-06-26] MEDS: ENOXAPARIN 40 MG/0.4 ML (LOVENOX) SYR SC SCH (22:28)
[2021-06-27] MEDS: HYDROcodone/APAP 5 MG/325 MG (LORTAB) TAB PO PRN ×2 (02:08→22:18)
[2021-06-27] MEDS: SODIUM CHLORIDE 3% 500 ML IV SCH ×2 (05:23→22:05)
[2021-06-27 05:46] LABS: BASOPHILS % (AUTO) 0 % (0-10); EOSINOPHILS # (AUTO) 0.1 10^3/uL (0.0-0.3); EOSINOPHILS % (AUTO) 1 % (0-10); HEMATOCRIT 36 % (40-54); HEMOGLOBIN 12.6 g/dL (13.3-17.7); LYMPHOCYTES # (AUTO) 0.6 10^3/uL (1.0-4.0); LYMPHOCYTES % (AUTO) 7 % (12-44); MEAN CORPUSCULAR HEMOGLOBIN 27 pg (25-34); MEAN CORPUSCULAR HGB CONC 36 g/dL (32-36); MEAN CORPUSCULAR VOLUME 77 fL (80-99); MEAN PLATELET VOLUME 9.4 fL (9.0-12.2); MONOCYTES # (AUTO) 0.6 10^3/uL (0.0-1.0); MONOCYTES % (AUTO) 7 % (0-12); NEUTROPHILS # (AUTO) 7.4 10^3/uL (1.8-7.8); NEUTROPHILS % (AUTO) 84 % (42-75); PLATELET COUNT 207 10^3/uL (130-400); WHITE BLOOD COUNT 8.8 10^3/uL (4.3-11.0)
[2021-06-27 06:03] LABS: ALBUMIN 2.9 GM/DL (3.2-4.5)
[2021-06-27 06:04] LABS: POTASSIUM 3.4 MMOL/L (3.6-5.0)
[2021-06-27 06:05] LABS: CALCIUM 8.2 MG/DL (8.5-10.1)
[2021-06-27 06:06] LABS: TOTAL PROTEIN 5.8 GM/DL (6.4-8.2)
[2021-06-27 06:08] LABS: BILIRUBIN,TOTAL 1.3 MG/DL (0.1-1.0)
[2021-06-27 06:10] LABS: CREATININE SERUM 0.6 MG/DL (0.60-1.30)
[2021-06-27 06:24] VITALS: BP 122/82
[2021-06-27] MEDS: RT--FLUTICASONE/SALMETEROL 113-14 (AIRDUO RespiCLICK) IH SCH ×2 (08:06→19:15)
[2021-06-27] MEDS: RT-ALBUTEROL/IPRATROPIUM 3 ML (DUONEB) VIAL INH SCH ×2 (08:06→21:23)
--- NOTE | 2021-06-27 08:53 | Physical Therapy Daily Note ---
PT Daily Note-Current Subjective Patient was in bed and reported that he had chemo treatment later this morning. Patient was compliant with therapy and attempting to walk this morning. Mental Status Patient Orientation: Person, Place, Time, Eyes Open Attachments: Galvin Catheter, IV Transfers SCALE: Activities may be completed with or without assistive devices. 8-Vqbnzunwri-bjnevci completes the activity by him/herself with no assistance from a helper. 5-Set-up or Clean-up Assistance-helper sets up or cleans up; patient completes activity. [place] assists only prior to or following the activity. 4-Supervision or Touching Assistance-helper provides verbal cues and/or touching/steadying and/or contact guard assistance as patient completes activity. Assistance may be provided throughout the activity or intermittently. 3-Partial/Moderate Assistance-helper does LESS THAN HALF the effort. [place] lifts, holds or supports trunk or limbs, but provides less than half the effort. 2-Substantial/Maximal Assistance-helper does MORE THAN HALF the effort. [place] lifts or holds trunk or limbs and provides more than half the effort. 2-Dgxevclzs-ontavp does ALL the effort. Patient does none of the effort to complete the activity. Or, the assistance of 2 or more helpers is required for the patient to complete the activity. If activity was not attempted, code reason: 7-Patient Refused. 9-Not Applicable-not attempted and the patient did not perform the activity before the current illness, exacerbation or injury. 10-Not Attempted due to Environmental Limitations-(lack of equipment, weather restraints, etc.). 88-Not Attempted due to Medical Conditions or Safety Concerns. Lying to Sitting/Side of Bed(Q: 6 Sit to Stand (QC): 5 Chair/Awn-ca-Vndxx Xfer(QC): 5 Gait Training Does the Patient Walk?: Yes Distance: 325' Walk 10 feet (QC): 4 Walk 50 ft with 2 Turns(QC): 4 Walk 150 ft (QC): 4 Gait Assistive Device: FWW Patient ambulated with FFW and CGA for 325' with multiple rest breaks due to fatigue and weakness. Exercises Seated Therapy Exercises: Ankle pumps, Long arc quads, Hip flexion Seated Reps: 10 Assessment Patient completed ambulation and seated exercises with minimal complaints. Patient ambulated slowly and required multiple rest breaks during ambulation due to fatigue and weakness. Patient completed seated exercises without rest breaks but was fatigued after seated exercises. PT Residential Roofer Helper Goals Snf Goals PT Snf Goals Time Frame: Jun 29, 2021 Roll Left & Right (QC): 6 Sit to Lying (QC): 6 Lying-Sitting on Side/Bed(QC): 6 Sit to Stand (QC): 5 Chair/Slw-nr-Dumch Xfer(QC): 5 Toilet Transfer (QC): 5 Car Transfer (QC): 5 Does the Patient Walk: Yes Walk 10 feet (QC): 5 Walk 50ft with 2 Turns (QC): 5 Walk 150 ft (QC): 5 Walking 10ft on Uneven Surface: 5 1 Step (curb) (QC): 4 4 Steps (QC): 4 12 Steps (QC): 88 Picking up an Object (QC): 88 Wheel 50 feet with 2 turns (QC: 9 Wheel 150 feet: 9 PT Plan Treatment/Plan Treatment Plan: Continue Plan of Care Treatment Plan: Education, Functional Activity Yulissa, Functional Strength, Gait, Safety, Therapeutic Exercise, Transfers Treatment Duration: Jun 29, 2021 Frequency: 6 times per week Estimated Hrs Per Day: .25 hour per day Patient and/or Family Agrees t: Yes Time/GCodes Time In: 818 Time Out: 833 Total Billed Treatment Time: 15 Total Billed Treatment 1 visit FA 15 min LEANDRO PHILLIPS PT Jun 27, 2021 08:53
[2021-06-27] MEDS: amLODIPine 5 MG (NORVASC) TAB PO SCH (09:17)
[2021-06-27] MEDS: SENNA W/DOCUSATE (SENOKOT S) TABLET PO SCH ×2 (09:17→21:32)
[2021-06-27] MEDS: polyethylene glycoL POWDER 17 GM (MIRALAX) PACK PO SCH ×2 (09:18→21:40)
[2021-06-27] MEDS: SODIUM CHLORIDE 1 GM TABLET PO SCH ×2 (09:18→21:33)
[2021-06-27] MEDS: FAMOTIDINE 20 MG (PEPCID) TABLET PO SCH ×2 (09:18→21:32)
[2021-06-27] MEDS: RT-ALBUTEROL/IPRATROPIUM 3 ML (DUONEB) VIAL INH PRN ×2 (10:24→19:15)
--- NOTE | 2021-06-27 10:47 | Occupational Ther Daily Note ---
OT Current Status-Daily Note Subjective Pt alert, lying in bed. Pt stated that he had just gotten up with PT and walked around. Pt agrees to therapy though no OOB tasks. No c/o pain. Mental Status/Objective Patient Orientation: Person, Place, Time, Situation Attachments: Galvin Catheter, IV, Oxygen ADL-Treatment Therapy Code Descriptions/Definitions Functional [place] Measure: 0=Not Assessed/NA 4=Minimal Assistance 1=Total Assistance 5=Supervision or Setup 2=Maximal Assistance 6=Modified [place] 3=Moderate Assistance 7=Complete IndependenceSCALE: Activities may be completed with or without assistive devices. 5-Uauctyjjmn-fgzcozg completes the activity by him/herself with no assistance from a helper. 5-Set-up or Clean-up Assistance-helper sets up or cleans up; patient completes activity. [place] assists only prior to or following the activity. 4-Supervision or Touching Assistance-helper provides verbal cues and/or touchin g/steadying and/or contact guard assistance as patient completes activity. Assistance may be provided throughout the activity or intermittently. 3-Partial/Moderate Assistance-helper does LESS THAN HALF the effort. [place] lifts, holds or supports trunk or limbs, but provides less than half the effort. 2-Substantial/Maximal Assistance-helper does MORE THAN HALF the effort. [place] lifts or holds trunk or limbs and provides more than half the effort. 2-Ehvdtauls-kiudmm does ALL the effort. Patient does none of the effort to complete the activity. Or, the assistance of 2 or more helpers is required for the patient to complete the activity. If activity was not attempted, code reason: 7-Patient Refused. 9-Not Applicable-not attempted and the patient did not perform the activity before the current illness, exacerbation or injury. 10-Not Attempted due to Environmental Limitations-(lack of equipment, weather restraints, etc.). 88-Not Attempted due to Medical Conditions or Safety Concerns. Other Treatment Pt declined any OOB tasks. Pt able to complete B UE daily tasks while in supine with HOB elevated to 50*. Pt stated that he was tired and that he was told that he had wheezing in his chest. Respiratory therapy in room for a breathing treatment. After therapy, pt lying in bed with call light/phone in reach. All needs met in room. OT Tarp Repairer Goals Tarp Repairer Goals Time Frame: Jul 07, 2021 Eating (QC): 6 Oral Hygiene (QC): 6 Toileting Hygiene (QC): 6 Shower/Bathe Self (QC): 6 Upper Body Dressing (QC): 6 Lower Body Dressing (QC): 6 On/Off Footwear (QC): 6 Additional Goals: 1-Demonstrate ADL Tasks, 2-Verbalize Understanding, 3-ImproveStrength/[place] 1=Demonstrate adherence to instructed precautions during ADL tasks. 2=Patient will verbalize/demonstrate understanding of assistive devices/modifications for ADL. 3=Patient will improve strength/tolerance for activity to enable patient to perform ADL's. OT Education/Plan Problem List/Assessment Assessment: Decreased Activ Tolerance, Decreased UE Strength Discharge Recommendations Plan/Recommendations: Continue POC Treatment Plan/Plan of Care Patient would benefit from OT for education, treatment and training to promote independence in ADL's, mobility, safety and/or upper extremity function for ADL's. Plan of Care: ADL Retraining, Functional Mobility, UE Funct Exercise/Act Treatment Duration: Jul 07, 2021 Frequency: 5 times per week Estimated Hrs Per Day: .25 hour per day Rehab Potential: Fair Time/GCodes Start Time: 10:21 Stop Time: 10:39 Total Time Billed (hr/min): 18 Billed Treatment Time 1 visit-FA 1 (18 min) MARE BANKS Jun 27, 2021 10:47
[2021-06-27] MEDS: fentaNYL INJ 100 MCG/2 ML AMP IV PRN (13:10)
--- NOTE | 2021-06-27 17:10 | Progress Note ---
Subjective Subjective/Events-last exam Patient states that he is feeling nauseous this AM and vomited his breakfast. Otherwise feeling ok. Swelling in arms has not improved. Review of Systems Pulmonary: No Dyspnea; Cough Cardiovascular: Edema; No: Chest Pain, Palpitations Gastrointestinal: Nausea, Vomiting; No: Abdominal Pain, Diarrhea, Constipation Neurological: Weakness, Incoordination Objective Exam Last Set of Vital Signs Vital Signs Date Time Temp Pulse Resp B/P (MAP) Pulse Ox O2 Delivery O2 Flow Rate FiO2 06/27/21 10:25 95 Room Air 06/27/21 06:24 36.2 90 20 122/82 (95) Capillary Refill : I&O Intake and Output 06/27/21 00:00 Intake Total 1850 ml Output Total 700 ml Balance 1150 ml Intake Oral 1850 ml Output Urine Total 700 ml # Voids 2 # Bowel Movements 3 General: Alert, Oriented X3, Cooperative, No Acute Distress Neck: Other (neck swelling present) Lungs: Normal Air Movement, Other (wheezing in all lung [place], no crackles, normal work of breathing) Heart: Regular Rate, No Murmurs Abdomen: Normal Bowel Sounds, Soft, No Tenderness, No Masses Extremities: Other (2+ pitting edema UE bilaterally) Neuro: Normal Speech, Sensation Intact, Cranial Nerves 3-12 NL Results/Procedures Lab Laboratory Tests 06/27/21 05:25: White Blood Count 8.8, Red Blood Count 4.61, Hemoglobin 12.6L, Hematocrit 36L, Mean Corpuscular Volume 77L, Mean Corpuscular Hemoglobin 27, Mean Corpuscular Hemoglobin Concent 36, Red Cell Distribution Width 14.6H, Platelet Count 207, Mean Platelet Volume 9.4, Immature Granulocyte % (Auto) 1, Neutrophils (%) (Auto) 84H, Lymphocytes (%) (Auto) 7L, Monocytes (%) (Auto) 7, Eosinophils (%) (Auto) 1, Basophils (%) (Auto) 0, Neutrophils # (Auto) 7.4, Lymphocytes # (Auto) 0.6L, Monocytes # (Auto) 0.6, Eosinophils # (Auto) 0.1, Basophils # (Auto) 0.0, Immature Granulocyte # (Auto) 0.1, Sodium Level 120*L, Potassium Level 3.4L, Chloride Level 90L, Carbon Dioxide Level 23, Anion Gap 7, Blood Urea Nitrogen 9, Creatinine 0.60, Estimat Glomerular Filtration Rate 137, BUN/Creatinine Ratio 15, Glucose Level 97, Calcium Level 8.2L, Corrected Calcium 9.1, Total Bilirubin 1.3H, Aspartate Amino Transf (AST/SGOT) 57H, Alanine Aminotransferase (ALT/SGPT) 182H, Alkaline Phosphatase 59, Total Protein 5.8L, Albumin 2.9L Assessment/Plan Assessment/Plan (1) Non-small cell cancer of right lung Status: Chronic Assessment & Plan: Radiation and chemo per Oncology, recent pneumo after biopsy resolved during hospital stay after thoravent. 06/26: Completed round 1 chemo and currently getting radiation (2) Hyponatremia Status: Acute Assessment & Plan: Secondary to lung cancer. 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
[2021-06-27 18:00] VITALS: BP 131/80
[2021-06-27] MEDS: ZOLPIDEM 5 MG (AMBIEN) TAB PO SCH (21:32)
[2021-06-27] MEDS: ENOXAPARIN 40 MG/0.4 ML (LOVENOX) SYR SC SCH (21:32)
[2021-06-27] MEDS: MONTELUKAST 10 MG (SINGULAIR) TAB PO SCH (21:32)
[2021-06-28] MEDS: SODIUM CHLORIDE 3% 500 ML IV SCH (01:23)
[2021-06-28] MEDS: RT-ALBUTEROL/IPRATROPIUM 3 ML (DUONEB) VIAL INH PRN ×2 (02:29→15:56)
[2021-06-28 05:38] LABS: BASOPHILS % (AUTO) 0 % (0-10); EOSINOPHILS # (AUTO) 0.1 10^3/uL (0.0-0.3); EOSINOPHILS % (AUTO) 1 % (0-10); HEMATOCRIT 34 % (40-54); HEMOGLOBIN 12.1 g/dL (13.3-17.7); LYMPHOCYTES # (AUTO) 0.5 10^3/uL (1.0-4.0); LYMPHOCYTES % (AUTO) 5 % (12-44); MEAN CORPUSCULAR HEMOGLOBIN 27 pg (25-34); MEAN CORPUSCULAR HGB CONC 35 g/dL (32-36); MEAN CORPUSCULAR VOLUME 77 fL (80-99); MEAN PLATELET VOLUME 9.2 fL (9.0-12.2); MONOCYTES # (AUTO) 0.6 10^3/uL (0.0-1.0); MONOCYTES % (AUTO) 6 % (0-12); NEUTROPHILS # (AUTO) 8.4 10^3/uL (1.8-7.8); NEUTROPHILS % (AUTO) 87 % (42-75); PLATELET COUNT 203 10^3/uL (130-400); WHITE BLOOD COUNT 9.7 10^3/uL (4.3-11.0)
[2021-06-28 05:46] LABS: POTASSIUM 3.4 MMOL/L (3.6-5.0)
[2021-06-28 05:47] LABS: CALCIUM 8.3 MG/DL (8.5-10.1)
[2021-06-28 05:52] LABS: CREATININE SERUM 0.58 MG/DL (0.60-1.30)
[2021-06-28 06:00] VITALS: BP 134/85
[2021-06-28] MEDS: RT--FLUTICASONE/SALMETEROL 113-14 (AIRDUO RespiCLICK) IH SCH (07:37)
[2021-06-28] MEDS: RT-ALBUTEROL/IPRATROPIUM 3 ML (DUONEB) VIAL INH SCH ×2 (07:37→20:17)
[2021-06-28] MEDS ORDERED: NS IV 1000 ML (CANCER CTR) IV SCH (08:45)
[2021-06-28] MEDS ORDERED: FOSAPREPITANT (CANCER CENTER) 150 MG in NS (IVPB) CANCER CENTER ONLY 150 ML IV SCH (08:45)
[2021-06-28] MEDS ORDERED: CARBOPLATIN IV ONE (08:45)
[2021-06-28] MEDS ORDERED: D5W IV ONE (08:45)
[2021-06-28] MEDS ORDERED: KCL 20 MEQ TAB (K-DUR) PO ONE (09:15)
[2021-06-28] MEDS: FAMOTIDINE 20 MG (PEPCID) TABLET PO SCH ×2 (12:25→21:05)
[2021-06-28] MEDS: amLODIPine 5 MG (NORVASC) TAB PO SCH (12:26)
[2021-06-28] MEDS: SENNA W/DOCUSATE (SENOKOT S) TABLET PO SCH ×2 (12:26→21:04)
[2021-06-28] MEDS: SODIUM CHLORIDE 1 GM TABLET PO SCH ×3 (12:26→21:51)
[2021-06-28] MEDS: polyethylene glycoL POWDER 17 GM (MIRALAX) PACK PO SCH ×2 (12:27→21:51)
--- NOTE | 2021-06-28 13:35 | Occupational Ther Daily Note ---
OT Current Status-Daily Note Subjective Pt in bed, states he is very tired today and doesn't want to get out of bed. Agreeable to OT tx with some encouragement Mental Status/Objective Patient Orientation: Person, Place, Situation Attachments: Galvin Catheter, IV ADL-Treatment Therapy Code Descriptions/Definitions Functional [place] Measure: 0=Not Assessed/NA 4=Minimal Assistance 1=Total Assistance 5=Supervision or Setup 2=Maximal Assistance 6=Modified [place] 3=Moderate Assistance 7=Complete IndependenceSCALE: Activities may be completed with or without assistive devices. 2-Ugodvbcfka-dvidqdb completes the activity by him/herself with no assistance from a helper. 5-Set-up or Clean-up Assistance-helper sets up or cleans up; patient completes activity. [place] assists only prior to or following the activity. 4-Supervision or Touching Assistance-helper provides verbal cues and/or touching/steadying and/or contact guard assistance as patient completes activity. Assistance may be provided throughout the activity or intermittently. 3-Partial/Moderate Assistance-helper does LESS THAN HALF the effort. [place] lifts, holds or supports trunk or limbs, but provides less than half the effort. 2-Substantial/Maximal Assistance-helper does MORE THAN HALF the effort. [place] lifts or holds trunk or limbs and provides more than half the effort. 4-Oxicgwzaj-lgmdon does ALL the effort. Patient does none of the effort to complete the activity. Or, the assistance of 2 or more helpers is required for the patient to complete the activity. If activity was not attempted, code reason: 7-Patient Refused. 9-Not Applicable-not attempted and the patient did not perform the activity before the current illness, exacerbation or injury. 10-Not Attempted due to Environmental Limitations-(lack of equipment, weather restraints, etc.). 88-Not Attempted due to Medical Conditions or Safety Concerns. Eating (QC): 6 (Per clincial judgment.) Oral Hygiene (QC): 6 (Per clincial judgment.) Shower/Bathe Self (QC): 5 (set up, sponge bath at bed level) Upper Body Dressing (QC): 5 (Per clincial judgment.) Lower Body Dressing (QC): 4 (Supervision Per clincial judgment.) On/Off Footwear: 5 (set up utilizing figure 4 method) Toileting Hygiene (QC): 4 (Supervision Per clincial judgment.) Other Treatment Pt agreeable to sponge bath, declines OOB activities on this date. Pt completed sponge bath at bed level, with set up assistance. He utilizes figure 4 technique to reach his feet for bathing and dressing. Pt able to change socks after set up. Per clincial judgment, pt would be able to complete UE dressing with set up assistance and LE dressing with supervision, IND with grooming and eating. Post tx, pt in bed, call light in reach and all needs met, bed alarm on. Education OT Patient Education: Correct positioning, Energy conservation, Exercise program, Modified ADL techniques, Progress toward Goal/Update tx plan, Purpose of tx/functional activities, Rehab process Teaching Recipient: Patient Teaching Methods: Discussion Response to Teaching: Verbalize Understanding OT [facility] Goals [facility] Goals Time Frame: Jul 07, 2021 Eating (QC): 6 Oral Hygiene (QC): 6 Toileting Hygiene (QC): 6 Shower/Bathe Self (QC): 6 Upper Body Dressing (QC): 6 Lower Body Dressing (QC): 6 On/Off Footwear (QC): 6 Additional Goals: 1-Demonstrate ADL Tasks, 2-Verbalize Understanding, 3-Improv eStrength/Yulissa 1=Demonstrate adherence to instructed precautions during ADL tasks. 2=Patient will verbalize/demonstrate understanding of assistive devices/modifications for ADL. 3=Patient will improve strength/tolerance for activity to enable patient to p erform ADL's. OT Education/Plan Problem List/Assessment Assessment: Decreased Activ Tolerance, Decreased UE Strength, Impaired Funct Balance, Impaired I ADL's, Impaired Self-Care Skills Discharge Recommendations Plan/Recommendations: Continue POC Treatment Plan/Plan of Care Patient would benefit from OT for education, treatment and training to promote independence in ADL's, mobility, safety and/or upper extremity function for ADL's. Plan of Care: ADL Retraining, Functional Mobility, UE Funct Exercise/Act Treatment Duration: Jul 07, 2021 Frequency: 5 times per week Estimated Hrs Per Day: .25 hour per day Rehab Potential: Fair Time/GCodes Start Time: 13:10 Stop Time: 13:25 Total Time Billed (hr/min): 15 Billed Treatment Time 1, ADL MECHELLE GUTHRIE OT Jun 28, 2021 13:35
[2021-06-28] MEDS: ALPRAZolam 0.25 MG (XANAX) TAB PO PRN (13:51)
--- NOTE | 2021-06-28 13:53 | Physical Therapy Daily Note ---
PT Daily Note-Current Subjective Pt laying Supine in bed upon arrival. Pt agrees to limited Supine EX in bed due to fatigue from chemo. Mental Status Patient Orientation: Person, Place, Time, Situation Attachments: Oxygen Transfers SCALE: Activities may be completed with or without assistive devices. 7-Chivnfglva-wtsutuh completes the activity by him/herself with no assistance from a helper. 5-Set-up or Clean-up Assistance-helper sets up or cleans up; patient completes activity. [place] assists only prior to or following the activity. 4-Supervision or Touching Assistance-helper provides verbal cues and/or touching/steadying and/or contact guard assistance as patient completes activity. Assistance may be provided throughout the activity or intermittently. 3-Partial/Moderate Assistance-helper does LESS THAN HALF the effort. [place] lifts, holds or supports trunk or limbs, but provides less than half the effort. 2-Substantial/Maximal Assistance-helper does MORE THAN HALF the effort. [place] lifts or holds trunk or limbs and provides more than half the effort. 1-Fimkanpcn-menjqy does ALL the effort. Patient does none of the effort to complete the activity. Or, the assistance of 2 or more helpers is required for the patient to complete the activity. If activity was not attempted, code reason: 7-Patient Refused. 9-Not Applicable-not attempted and the patient did not perform the activity before the current illness, exacerbation or injury. 10-Not Attempted due to Environmental Limitations-(lack of equipment, weather restraints, etc.). 88-Not Attempted due to Medical Conditions or Safety Concerns. Exercises Supine Ex: Ankle pumps, Quad Set, Glut sets, Hip abd/add Supine Reps: 15 Treatments Pt completes Supine Ex with RB as needed. All needs met, call light in hand. Assessment Current Status: Fair Progress Pt is very fatigued but had just seen OT for tx shortly before PT tx. PT Longterm Goals Longterm Goals PT [employer] Goals Time Frame: Jun 29, 2021 Roll Left & Right (QC): 6 Sit to Lying (QC): 6 Lying-Sitting on Side/Bed(QC): 6 Sit to Stand (QC): 5 Chair/Dvl-la-Ydoud Xfer(QC): 5 Toilet Transfer (QC): 5 Car Transfer (QC): 5 Does the Patient Walk: Yes Walk 10 feet (QC): 5 Walk 50ft with 2 Turns (QC): 5 Walk 150 ft (QC): 5 Walking 10ft on Uneven Surface: 5 1 Step (curb) (QC): 4 4 Steps (QC): 4 12 Steps (QC): 88 Picking up an Object (QC): 88 Wheel 50 feet with 2 turns (QC: 9 Wheel 150 feet: 9 PT Plan Problem List Problem List: Activity Tolerance, Functional Strength Treatment/Plan Treatment Plan: Continue Plan of Care Treatment Plan: Education, Functional Activity Yulissa, Functional Strength, Gait, Safety, Therapeutic Exercise, Transfers Treatment Duration: Jun 29, 2021 Frequency: 6 times per week Estimated Hrs Per Day: .25 hour per day Patient and/or Family Agrees t: Yes Safety Risks/Education Patient Education: Correct Positioning Teaching Recipient: Patient Teaching Methods: Discussion Response to Teaching: Verbalize Understanding Time/GCodes Time In: 1330 Time Out: 1345 Total Billed Treatment Time: 15 Total Billed Treatment 1, EX (15m) TIFFANIE ALVARADO PTA Jun 28, 2021 13:53
--- NOTE | 2021-06-28 14:59 | Progress Note ---
Subjective Subjective/Events-last exam Patient feeling about the same today. Objective Exam Last Set of Vital Signs Vital Signs Date Time Temp Pulse Resp B/P (MAP) Pulse Ox O2 Delivery O2 Flow Rate FiO2 06/28/21 08:00 Room Air 06/28/21 07:37 96 06/28/21 06:00 36.4 100 20 134/85 (101) Capillary Refill : I&O Intake and Output 06/28/21 00:00 Intake Total 2920 ml Output Total 675 ml Balance 2245 ml Intake Oral 2920 ml Output Urine Total 675 ml General: Alert, Oriented X3, Cooperative, No Acute Distress HEENT: Mucous Memb Moist/[place] Lungs: Clear to Auscultation, Normal Air Movement Heart: Regular Rate, No Murmurs Abdomen: Soft, No Tenderness Extremities: Other (2+ pitting edema in UE ) Neuro: Normal Speech, Cranial Nerves 3-12 NL Psych/Mental Status: Mental Status NL, Mood NL Results/Procedures Lab Laboratory Tests 06/28/21 05:15: White Blood Count 9.7, Red Blood Count 4.46, Hemoglobin 12.1L, Hematocrit 34L, Mean Corpuscular Volume 77L, Mean Corpuscular Hemoglobin 27, Mean Corpuscular Hemoglobin Concent 35, Red Cell Distribution Width 14.7H, Platelet Count 203, Mean Platelet Volume 9.2, Immature Granulocyte % (Auto) 2, Neutrophils (%) (Auto) 87H, Lymphocytes (%) (Auto) 5L, Monocytes (%) (Auto) 6, Eosinophils (%) (Auto) 1, Basophils (%) (Auto) 0, Neutrophils # (Auto) 8.4H, Lymphocytes # (Auto) 0.5L, Monocytes # (Auto) 0.6, Eosinophils # (Auto) 0.1, Basophils # (Auto) 0.0, Immature Granulocyte # (Auto) 0.2H, Sodium Level 121*L, Potassium Level 3.4L, Chloride Level 90L, Carbon Dioxide Level 20L, Anion Gap 11, Blood Urea Nitrogen 9, Creatinine 0.58L, Estimat Glomerular Filtration Rate 142, BUN/C reatinine Ratio 16, Glucose Level 110H, Calcium Level 8.3L Assessment/Plan Assessment/Plan (1) Non-small cell cancer of right lung Status: Chronic Assessment & Plan: Radiation and chemo per Oncology, recent pneumo after biopsy resolved during hospital stay after thoravent. 06/26: Completed round 1 chemo and currently getting radiation 06/28: Oncology managing (2) Hyponatremia Status: Acute Assessment & Plan: Secondary to lung cancer. 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
[2021-06-28 18:00] VITALS: BP 161/89
--- NOTE | 2021-06-28 18:20 | Progress Note ---
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 Patient was started on palliative radiation therapy with worsening clinical picture. Weekly chemotherapy with carboplatin and paclitaxel was started last week and patient received second dose today. Right upper extremity, neck and facial swelling is worse today and patient is more short of breath. I discussed this with Dr. Barnes who will repeat a CT simulation tomorrow to evaluate the mass and adjust the treatment arrieta if necessary. Current plan is to administer 15 fractions of radiation with 3 weeks of concurrent chemotherapy. We will reevaluate the plan after the CT simulation tomorrow. We will follow patient with you. Hyponatremia and liver function abnormalities are gradually improving. Continue to monitor serially. JANIS RICKETTS Jun 28, 2021 18:20
[2021-06-28] MEDS: ZOLPIDEM 5 MG (AMBIEN) TAB PO SCH (21:05)
[2021-06-28] MEDS: MONTELUKAST 10 MG (SINGULAIR) TAB PO SCH (21:05)
[2021-06-28] MEDS: ENOXAPARIN 40 MG/0.4 ML (LOVENOX) SYR SC SCH (21:06)
[2021-06-28] MEDS: HYDROcodone/APAP 5 MG/325 MG (LORTAB) TAB PO PRN (21:06)
[2021-06-29] MEDS: SODIUM CHLORIDE 3% 500 ML IV SCH (00:05)
[2021-06-29] MEDS: HYDROcodone/APAP 5 MG/325 MG (LORTAB) TAB PO PRN (02:52)
[2021-06-29 06:00] VITALS: BP 169/86
[2021-06-29 06:56] LABS: POTASSIUM 3.7 MMOL/L (3.6-5.0)
[2021-06-29 06:57] LABS: CALCIUM 8.5 MG/DL (8.5-10.1)
[2021-06-29 07:01] LABS: CREATININE SERUM 0.59 MG/DL (0.60-1.30)
[2021-06-29 07:03] LABS: MAGNESIUM 1.7 MG/DL (1.6-2.4)
[2021-06-29] MEDS: RT--FLUTICASONE/SALMETEROL 113-14 (AIRDUO RespiCLICK) IH SCH ×2 (08:04→22:24)
[2021-06-29] MEDS: RT-ALBUTEROL/IPRATROPIUM 3 ML (DUONEB) VIAL INH SCH ×3 (08:05→22:25)
[2021-06-29] MEDS: FAMOTIDINE 20 MG (PEPCID) TABLET PO SCH ×2 (09:03→20:23)
[2021-06-29] MEDS: SODIUM CHLORIDE 1 GM TABLET PO SCH ×3 (09:03→20:23)
[2021-06-29] MEDS: SENNA W/DOCUSATE (SENOKOT S) TABLET PO SCH ×2 (09:03→20:23)
[2021-06-29] MEDS: amLODIPine 5 MG (NORVASC) TAB PO SCH (09:03)
--- NOTE | 2021-06-29 09:08 | Occupational Ther Daily Note ---
OT Current Status-Daily Note Subjective Pt alert, sitting up in bed. Pt's eyes swollen, L eye almost swollen shut and R eye swollen though pt able to see out of it. Increased edema throughout body. Pt agrees to therapy. Pt stated that he woke up very anxious because of a dream, sat with pt for therapeutic listening. Pt appears calm. Mental Status/Objective Patient Orientation: Person, Place, Time, Situation Attachments: Galvin Catheter, IV, Oxygen (3L) ADL-Treatment Pt declines any OOB activity stating that they would be coming shortly for treatment. Pt agrees to complete oral care, assist to gather supplies and pt able to complete oral care by self. Pt independent with eating. Pt coughing throughout session. After session, pt sitting up in bed eating breakfast. Call light/phone in reach. SW entered room at end of OT session. Therapy Code Descriptions/Definitions Functional [place] Measure: 0=Not Assessed/NA 4=Minimal Assistance 1=Total Assistance 5=Supervision or Setup 2=Maximal Assistance 6=Modified [place] 3=Moderate Assistance 7=Complete IndependenceSCALE: Activities may be completed with or without assistive devices. 1-Sbnmboiyqw-dcyfzco completes the activity by him/herself with no assistance from a helper. 5-Set-up or Clean-up Assistance-helper sets up or cleans up; patient completes activity. [place] assists only prior to or following the activity. 4-Supervision or Touching Assistance-helper provides verbal cues and/or touching/steadying and/or contact guard assistance as patient completes activity. Assistance may be provided throughout the activity or intermittently. 3-Partial/Moderate Assistance-helper does LESS THAN HALF the effort. [place] lifts, holds or supports trunk or limbs, but provides less than half the effort. 2-Substantial/Maximal Assistance-helper does MORE THAN HALF the effort. [place] lifts or holds trunk or limbs and provides more than half the effort. 3-Ocdssitct-huntoo does ALL the effort. Patient does none of the effort to complete the activity. Or, the assistance of 2 or more helpers is required for the patient to complete the activity. If activity was not attempted, code reason: 7-Patient Refused. 9-Not Applicable-not attempted and the patient did not perform the activity before the current illness, exacerbation or injury. 10-Not Attempted due to Environmental Limitations-(lack of equipment, weather restraints, etc.). 88-Not Attempted due to Medical Conditions or Safety Concerns. Eating (QC): 6 Oral Hygiene (QC): 5 OT [employer] Director [facility] Goals Time Frame: Jul 07, 2021 Eating (QC): 6 Oral Hygiene (QC): 6 Toileting Hygiene (QC): 6 Shower/Bathe Self (QC): 6 Upper Body Dressing (QC): 6 Lower Body Dressing (QC): 6 On/Off Footwear (QC): 6 Additional Goals: 1-Demonstrate ADL Tasks, 2-Verbalize Understanding, 3- ImproveStrength/Yulissa 1=Demonstrate adherence to instructed precautions during ADL tasks. 2=Patient will verbalize/demonstrate understanding of assistive devices/modifications for ADL. 3=Patient will improve strength/tolerance for activity to enable patient to perform ADL's. OT Education/Plan Problem List/Assessment Assessment: Decreased Activ Tolerance Discharge Recommendations Plan/Recommendations: Continue POC Treatment Plan/Plan of Care Patient would benefit from OT for education, treatment and training to promote independence in ADL's, mobility, safety and/or upper extremity function for ADL's. Plan of Care: ADL Retraining, Functional Mobility, UE Funct Exercise/Act Treatment Duration: Jul 07, 2021 Frequency: 5 times per week Estimated Hrs Per Day: .25 hour per day Rehab Potential: Fair Time/GCodes Start Time: 08:35 Stop Time: 08:50 Total Time Billed (hr/min): 15 Billed Treatment Time 1 visit-ADL 1 (15 min) MARE BANKS Jun 29, 2021 09:08
[2021-06-29] MEDS: polyethylene glycoL POWDER 17 GM (MIRALAX) PACK PO SCH ×2 (10:02→21:00)
--- NOTE | 2021-06-29 11:30 | Physical Therapy Progress Note ---
Therapy Progress Note Attempted to see patient for PT treatment but he refused. When PT knocks and enters room patient yells out "I'm trying to take a nap!!" He refuses tx immediately and sounds very upset/angry/irritated. Will attempt this afternoon if able. ENOCH CASTILLO PT Jun 29, 2021 11:30
[2021-06-29 18:00] VITALS: BP 168/93
[2021-06-29] MEDS: RT-ALBUTEROL/IPRATROPIUM 3 ML (DUONEB) VIAL INH PRN (18:30)
[2021-06-29] MEDS: guaiFENesin/CODEINE (ROBITUSSIN AC) 10ML UDC PO PRN (20:22)
[2021-06-29] MEDS: MONTELUKAST 10 MG (SINGULAIR) TAB PO SCH (20:23)
[2021-06-29] MEDS: ENOXAPARIN 40 MG/0.4 ML (LOVENOX) SYR SC SCH (20:25)
--- NOTE | 2021-06-29 20:38 | Progress Note ---
Subjective Subjective/Events-last exam Patient is having more shortness of breath. He feels like the swelling in his UE is worse. Tolerating PO diet Review of Systems General: Fatigue, Malaise HEENT: Eye Pain Pulmonary: Dyspnea, Cough Cardiovascular: Edema; No: Chest Pain, Palpitations Gastrointestinal: No: Nausea, Vomiting, Abdominal Pain, Diarrhea Neurological: Weakness, Incoordination Objective Exam Last Set of Vital Signs Vital Signs Date Time Temp Pulse Resp B/P (MAP) Pulse Ox O2 Delivery O2 Flow Rate FiO2 06/29/21 19:39 36.6 111 94 06/29/21 18:30 Room Air 06/29/21 18:00 22 168/93 (118) 06/29/21 13:42 3.00 Capillary Refill : I&O Intake and Output 06/29/21 00:00 Intake Total 1400 ml Output Total 1875 ml Balance -475 ml Intake Oral 1400 ml Output Urine Total 1875 ml # Bowel Movements 2 General: Alert, Oriented X3 Neck: Other (+ JVD) Lungs: Clear to Auscultation, Normal Air Movement Heart: Regular Rate, No Murmurs Abdomen: Normal Bowel Sounds, Soft Extremities: Other (2-3+ pitting edema in UE bilaterally) Results/Procedures Lab Laboratory Tests 06/29/21 06:15: Sodium Level 123*L, Potassium Level 3.7, Chloride Level 93L, Carbon Dioxide Level 21, Anion Gap 9, Blood Urea Nitrogen 8, Creatinine 0.59L, Estimat Glomerular Filtration Rate 140, BUN/Creatinine Ratio 14, Glucose Level 103, Calcium Level 8.5, Magnesium Level 1.7 Assessment/Plan Assessment/Plan (1) Non-small cell cancer of right lung Status: Chronic Assessment & Plan: Radiation and chemo per Oncology, recent pneumo after biopsy resolved during hospital stay after thoravent. 06/26: Completed round 1 chemo and currently getting radiation 06/28: Oncology managing 06/29: Received 2nd dose of chemo today, continue with palliative radiation (2) Hyponatremia Status: Acute Assessment & Plan: Secondary to lung cancer. 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
--- NOTE | 2021-06-29 21:23 | Diagnostic Imaging Report ---
INDICATION: Chest pain. COMPARISON: 06/18/2021. EXAMINATION: Single view of the chest. FINDINGS: Interval removal of the small caliber chest tube. There is a mass in the right upper lobe. There is no pneumothorax or effusion. The heart is prominent but stable. IMPRESSION: Known mass in right upper lobe. No pneumothorax, infiltrate or effusion. Dictated by: Dictated on workstation # [id number]
[2021-06-29] MEDS: ZOLPIDEM 5 MG (AMBIEN) TAB PO SCH (23:05)
[2021-06-30] MEDS: RT-ALBUTEROL/IPRATROPIUM 3 ML (DUONEB) VIAL INH SCH ×6 (03:22→21:31)
[2021-06-30] MEDS: guaiFENesin/CODEINE (ROBITUSSIN AC) 10ML UDC PO PRN ×2 (06:12→14:58)
[2021-06-30 06:13] LABS: BASOPHILS # (AUTO) 0.1 10^3/uL (0.0-0.1); BASOPHILS % (AUTO) 0 % (0-10); EOSINOPHILS % (AUTO) 0 % (0-10); HEMATOCRIT 31 % (40-54); LYMPHOCYTES # (AUTO) 0.2 10^3/uL (1.0-4.0); LYMPHOCYTES % (AUTO) 1 % (12-44); MEAN CORPUSCULAR HEMOGLOBIN 28 pg (25-34); MEAN CORPUSCULAR HGB CONC 36 g/dL (32-36); MEAN CORPUSCULAR VOLUME 78 fL (80-99); MEAN PLATELET VOLUME 9.4 fL (9.0-12.2); MONOCYTES # (AUTO) 0.8 10^3/uL (0.0-1.0); MONOCYTES % (AUTO) 3 % (0-12); NEUTROPHILS # (AUTO) 23.6 10^3/uL (1.8-7.8); NEUTROPHILS % (AUTO) 94 % (42-75); PLATELET COUNT 136 10^3/uL (130-400); WHITE BLOOD COUNT 25.1 10^3/uL (4.3-11.0)
[2021-06-30 06:18] VITALS: BP 151/85
[2021-06-30 06:29] LABS: ALBUMIN 2.9 GM/DL (3.2-4.5); POTASSIUM 3.6 MMOL/L (3.6-5.0)
[2021-06-30 06:30] LABS: CALCIUM 8.3 MG/DL (8.5-10.1)
[2021-06-30 06:31] LABS: TOTAL PROTEIN 5.5 GM/DL (6.4-8.2)
[2021-06-30 06:33] LABS: BILIRUBIN,TOTAL 1.2 MG/DL (0.1-1.0)
[2021-06-30 06:35] LABS: CREATININE SERUM 0.62 MG/DL (0.60-1.30)
[2021-06-30 06:59] LABS: LYMPHOCYTES % (MANUAL) 2 %; MICROCYTOSIS MODERATE; MONOCYTES % (MANUAL) 3 %; NEUTROPHILS % (MANUAL) 95 %
[2021-06-30] MEDS: SENNA W/DOCUSATE (SENOKOT S) TABLET PO SCH ×2 (08:19→20:37)
[2021-06-30] MEDS: amLODIPine 5 MG (NORVASC) TAB PO SCH (08:19)
[2021-06-30] MEDS: SODIUM CHLORIDE 1 GM TABLET PO SCH ×3 (08:19→20:39)
[2021-06-30] MEDS: polyethylene glycoL POWDER 17 GM (MIRALAX) PACK PO SCH ×2 (08:19→20:37)
[2021-06-30] MEDS: FAMOTIDINE 20 MG (PEPCID) TABLET PO SCH ×2 (08:19→20:38)
--- NOTE | 2021-06-30 09:58 | Occupational Ther Daily Note ---
OT Current Status-Daily Note Subjective Pt alert, lying in bed. Pt agrees to therapy. Pt's edema on face has decreased, edema throughout rest of body still significantly present. Mental Status/Objective Patient Orientation: Person, Place, Time, Situation Attachments: Galvin Catheter, IV ADL-Treatment Independent with eating. Will need built up handles for eating utensils due to increased swelling in hands. Therapy Code Descriptions/Definitions Functional [place] Measure: 0=Not Assessed/NA 4=Minimal Assistance 1=Total Assistance 5=Supervision or Setup 2=Maximal Assistance 6=Modified [place] 3=Moderate Assistance 7=Complete IndependenceSCALE: Activities may be completed with or without assistive devices. 7-Tomoimlwus-cnnyqsb completes the activity by him/herself with no assistance from a helper. 5-Set-up or Clean-up Assistance-helper sets up or cleans up; patient completes activity. [place] assists only prior to or following the activity. 4-Supervision or Touching Assistance-helper provides verbal cues and/or touching/steadying and/or contact guard assistance as patient completes activity. Assistance may be provided throughout the activity or intermittently. 3-Partial/Moderate Assistance-helper does LESS THAN HALF the effort. [place] lifts, holds or supports trunk or limbs, but provides less than half the effort. 2-Substantial/Maximal Assistance-helper does MORE THAN HALF the effort. [place] lifts or holds trunk or limbs and provides more than half the effort. 8-Wgsthahgb-qzzycs does ALL the effort. Patient does none of the effort to c omplete the activity. Or, the assistance of 2 or more helpers is required for the patient to complete the activity. If activity was not attempted, code reason: 7-Patient Refused. 9-Not Applicable-not attempted and the patient did not perform the activity before the current illness, exacerbation or injury. 10-Not Attempted due to Environmental Limitations-(lack of equipment, weather restraints, etc.). 88-Not Attempted due to Medical Conditions or Safety Concerns. Other Treatment Pt able to tolerate ambulation in hallways using FWW. Supine <--> Sit independent. Pt able to manipulate FWW to maneuver through doors and to turn with SBA. Pt began to cough detention through session. Nrsg aware. After session, pt lying in bed with call light/phone in reach. All needs met in room. OT Long-Term Goals [employer] Goals Time Frame: Jul 07, 2021 Eating (QC): 6 Oral Hygiene (QC): 6 Toileting Hygiene (QC): 6 Shower/Bathe Self (QC): 6 Upper Body Dressing (QC): 6 Lower Body Dressing (QC): 6 On/Off Footwear (QC): 6 Additional Goals: 1-Demonstrate ADL Tasks, 2-Verbalize Understanding, 3- ImproveStrength/[place] 1=Demonstrate adherence to instructed precautions during ADL tasks. 2=Patient will verbalize/demonstrate understanding of assistive devices/modifications for ADL. 3=Patient will improve strength/tolerance for activity to enable patient to perform ADL's. OT Education/Plan Problem List/Assessment Assessment: Decreased Activ Tolerance Discharge Recommendations Plan/Recommendations: Continue POC Treatment Plan/Plan of Care Patient would benefit from OT for education, treatment and training to promote independence in ADL's, mobility, safety and/or upper extremity function for ADL's. Plan of Care: ADL Retraining, Functional Mobility, UE Funct Exercise/Act Treatment Duration: Jul 07, 2021 Frequency: 5 times per week Estimated Hrs Per Day: .25 hour per day Rehab Potential: Fair Time/GCodes Start Time: 09:27 Stop Time: 09:43 Total Time Billed (hr/min): 16 Billed Treatment Time 1 visit-FA 1 (16 min) MARE BANKS Jun 30, 2021 09:58
--- NOTE | 2021-06-30 11:40 | Physical Therapy Daily Note ---
PT Daily Note-Current Subjective Patient is sitting in bed and agrees to therapy. Patient reports that he is having more difficulty breathing and is coughing more today. Mental Status Patient Orientation: Person, Place, Time, Situation Attachments: Galvin Catheter Transfers SCALE: Activities may be completed with or without assistive devices. 4-Cysfikoauy-vszkaee completes the activity by him/herself with no assistance from a helper. 5-Set-up or Clean-up Assistance-helper sets up or cleans up; patient completes a ctivity. [place] assists only prior to or following the activity. 4-Supervision or Touching Assistance-helper provides verbal cues and/or touching/steadying and/or contact guard assistance as patient completes activity. Assistance may be provided throughout the activity or intermittently. 3-Partial/Moderate Assistance-helper does LESS THAN HALF the effort. [place] lifts, holds or supports trunk or limbs, but provides less than half the effort. 2-Substantial/Maximal Assistance-helper does MORE THAN HALF the effort. [place] lifts or holds trunk or limbs and provides more than half the effort. 4-Bcfyjfduc-mlmbze does ALL the effort. Patient does none of the effort to complete the activity. Or, the assistance of 2 or more helpers is required for the patient to complete the activity. If activity was not attempted, code reason: 7-Patient Refused. 9-Not Applicable-not attempted and the patient did not perform the activity before the current illness, exacerbation or injury. 10-Not Attempted due to Environmental Limitations-(lack of equipment, weather restraints, etc.). 88-Not Attempted due to Medical Conditions or Safety Concerns. Sit to Stand (QC): 5 Chair/Xcq-iq-Bkvqp Xfer(QC): 5 Patient requires SBA for all transfers for safety. Gait Training Distance: 150 Walk 10 feet (QC): 4 Walk 50 ft with 2 Turns(QC): 4 Walk 150 ft (QC): 4 Gait Assistive Device: FWW Patient ambulates slowly with FWW and requires additional rest breaks to catch his breath. Patient fatigues with ambulation and gets out of breath quickly. Exercises Seated Therapy Exercises: Ankle pumps, Long arc quads, Hip flexion, Hip abd/add Seated Reps: 15 Assessment Patient required additional rest breaks with ambulation and seated exercises during therapy session. After ambulation the patient required additional rest time to catch his breath while sitting before performing seated exercises. Patient completed seated exercises but required rest breaks between exercises as well. PT [facility] Goals Skiver Hand Goals PT Skiver Hand Goals Time Frame: Jun 29, 2021 Roll Left & Right (QC): 6 Sit to Lying (QC): 6 Lying-Sitting on Side/Bed(QC): 6 Sit to Stand (QC): 5 Chair/Nln-ov-Paugi Xfer(QC): 5 Toilet Transfer (QC): 5 Car Transfer (QC): 5 Does the Patient Walk: Yes Walk 10 feet (QC): 5 Walk 50ft with 2 Turns (QC): 5 Walk 150 ft (QC): 5 Walking 10ft on Uneven Surface: 5 1 Step (curb) (QC): 4 4 Steps (QC): 4 12 Steps (QC): 88 Picking up an Object (QC): 88 Wheel 50 feet with 2 turns (QC: 9 Wheel 150 feet: 9 PT Plan Treatment/Plan Treatment Plan: Continue Plan of Care Treatment Plan: Education, Functional Activity Yulissa, Functional Strength, Gait, Safety, Therapeutic Exercise, Transfers Treatment Duration: Jun 29, 2021 Frequency: 6 times per week Estimated Hrs Per Day: .25 hour per day Patient and/or Family Agrees t: Yes Time/GCodes Time In: 1043 Time Out: 1059 Total Billed Treatment Time: 16 Total Billed Treatment 1 Visit FA 16 min LEANDRO PHILLIPS PT Jun 30, 2021 11:40
[2021-06-30 12:56] VITALS: BP 140/74
[2021-06-30] MEDS: ALPRAZolam 0.25 MG (XANAX) TAB PO PRN (14:59)
[2021-06-30 17:48] VITALS: BP 180/93
[2021-06-30] MEDS: cloNIDine 0.1 MG (CATAPRES) TAB PO PRN (18:02)
--- NOTE | 2021-06-30 19:28 | Progress Note ---
Subjective Subjective/Events-last exam Patient having increase in swelling and pain. Tolerating PO diet. Sitting up in the chair. Review of Systems General: Fatigue, Malaise Pulmonary: Dyspnea Cardiovascular: Edema; No: Chest Pain, Palpitations Gastrointestinal: No: Nausea, Vomiting, Abdominal Pain, Diarrhea, Constipation Neurological: Weakness, Incoordination Objective Exam Last Set of Vital Signs Vital Signs Date Time Temp Pulse Resp B/P (MAP) Pulse Ox O2 Delivery O2 Flow Rate FiO2 06/30/21 18:32 94 Room Air 06/30/21 17:48 37.0 114 20 180/93 (122) 06/29/21 20:23 3.00 Capillary Refill : I&O Intake and Output 06/30/21 00:00 Intake Total 1750 ml Output Total 1450 ml Balance 300 ml Intake Oral 1750 ml Output Urine Total 1450 ml General: Alert, Cooperative Lungs: Other (Diffuse wheezing, increased work of breathing) Heart: Regular Rate, No Murmurs Abdomen: Soft, No Tenderness, No Masses Extremities: Other (2+ pitting edema UE) Results/Procedures Lab Laboratory Tests 06/29/21 21:00: B-Type Natriuretic Peptide 96.4 06/30/21 06:05: White Blood Count 25.1H, Red Blood Count 3.97L, Hemoglobin 11.0L, Hematocrit 31L , Mean Corpuscular Volume 78L, Mean Corpuscular Hemoglobin 28, Mean Corpuscular Hemoglobin Concent 36, Red Cell Distribution Width 15.1H, Platelet Count 136, Mean Platelet Volume 9.4, Immature Granulocyte % (Auto) 2, Neutrophils (%) (Auto) 94H, Lymphocytes (%) (Auto) 1L, Monocytes (%) (Auto) 3, Eosinophils (%) (Auto) 0, Basophils (%) (Auto) 0, Neutrophils # (Auto) 23.6H, Lymphocytes # (Auto) 0.2L, Monocytes # (Auto) 0.8, Eosinophils # (Auto) 0.0, Basophils # (Auto) 0.1, Immature Granulocyte # (Auto) 0.5H, Neutrophils % (Manual) 95, Lymphocytes % (Manual) 2, Monocytes % (Manual) 3, Microcytosis MODERATE, Macrocytosis SLIGHT, Sodium Level 123*L, Potassium Level 3.6, Chloride Level 93L , Carbon Dioxide Level 21, Anion Gap 9, Blood Urea Nitrogen 10, Creatinine 0.62, Estimat Glomerular Filtration Rate 109, BUN/Creatinine Ratio 16, Glucose Level 98, Calcium Level 8.3L, Corrected Calcium 9.2, Total Bilirubin 1.2H, Aspartate Amino Transf (AST/SGOT) 73H, Alanine Aminotransferase (ALT/SGPT) 164H, Alkaline Phosphatase 62, Total Protein 5.5L, Albumin 2.9L Assessment/Plan Assessment/Plan (1) Non-small cell cancer of right lung Status: Chronic Assessment & Plan: Radiation and chemo per Oncology, recent pneumo after biopsy resolved during hospital stay after thoravent. 06/26: Completed round 1 chemo and currently getting radiation 06/28: Oncology managing 06/29: Received 2nd dose of chemo today, continue with palliative radiation 06/30: Palliative radiation (2) Hyponatremia Status: Acute Assessment & Plan: Secondary to lung cancer. 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
[2021-06-30] MEDS: MONTELUKAST 10 MG (SINGULAIR) TAB PO SCH (20:38)
[2021-06-30] MEDS: ENOXAPARIN 40 MG/0.4 ML (LOVENOX) SYR SC SCH (20:38)
[2021-06-30] MEDS: RT--FLUTICASONE/SALMETEROL 113-14 (AIRDUO RespiCLICK) IH SCH (21:35)
[2021-06-30] MEDS: ZOLPIDEM 5 MG (AMBIEN) TAB PO SCH (21:49)
[2021-07-01] MEDS: guaiFENesin/CODEINE (ROBITUSSIN AC) 10ML UDC PO PRN ×3 (00:36→16:30)
[2021-07-01] MEDS: RT-ALBUTEROL/IPRATROPIUM 3 ML (DUONEB) VIAL INH SCH ×6 (02:10→23:01)
[2021-07-01] MEDS: ALPRAZolam 0.25 MG (XANAX) TAB PO PRN ×2 (04:00→20:23)
[2021-07-01 04:15] LABS: EOSINOPHILS % (AUTO) 0 % (0-10); HEMOGLOBIN 10.8 g/dL (13.3-17.7); MONOCYTES # (AUTO) 0.4 10^3/uL (0.0-1.0); MONOCYTES % (AUTO) 2 % (0-12)
[2021-07-01 04:17] LABS: BASOPHILS % (AUTO) 0 % (0-10); HEMATOCRIT 30 % (40-54); LYMPHOCYTES # (AUTO) 0.2 10^3/uL (1.0-4.0); LYMPHOCYTES % (AUTO) 1 % (12-44); MEAN CORPUSCULAR HEMOGLOBIN 28 pg (25-34); MEAN CORPUSCULAR HGB CONC 36 g/dL (32-36); MEAN CORPUSCULAR VOLUME 77 fL (80-99); MEAN PLATELET VOLUME 9.4 fL (9.0-12.2); NEUTROPHILS # (AUTO) 17.3 10^3/uL (1.8-7.8); NEUTROPHILS % (AUTO) 93 % (42-75); PLATELET COUNT 122 10^3/uL (130-400); WHITE BLOOD COUNT 18.5 10^3/uL (4.3-11.0)
[2021-07-01 04:37] LABS: ALBUMIN 2.8 GM/DL (3.2-4.5)
[2021-07-01 04:38] LABS: POTASSIUM 3.4 MMOL/L (3.6-5.0)
[2021-07-01 04:39] LABS: CALCIUM 8.3 MG/DL (8.5-10.1)
[2021-07-01 04:40] LABS: TOTAL PROTEIN 5.5 GM/DL (6.4-8.2)
[2021-07-01 04:42] LABS: BILIRUBIN,TOTAL 1.2 MG/DL (0.1-1.0)
[2021-07-01 04:44] LABS: CREATININE SERUM 0.65 MG/DL (0.60-1.30)
[2021-07-01 05:44] VITALS: BP 116/66
[2021-07-01] MEDS: RT--FLUTICASONE/SALMETEROL 113-14 (AIRDUO RespiCLICK) IH SCH ×2 (07:50→23:00)
[2021-07-01] MEDS: FAMOTIDINE 20 MG (PEPCID) TABLET PO SCH ×2 (08:41→20:23)
[2021-07-01] MEDS: polyethylene glycoL POWDER 17 GM (MIRALAX) PACK PO SCH ×2 (08:41→20:23)
[2021-07-01] MEDS: SENNA W/DOCUSATE (SENOKOT S) TABLET PO SCH ×2 (08:41→20:23)
[2021-07-01] MEDS: amLODIPine 5 MG (NORVASC) TAB PO SCH (08:41)
[2021-07-01] MEDS: SODIUM CHLORIDE 1 GM TABLET PO SCH ×3 (08:47→20:22)
--- NOTE | 2021-07-01 10:38 | Progress Note - Hospitalist ---
Subjective HPI/CC On Admission Date Seen by Provider: Jul 01, 2021 Time Seen by Provider: 07:30 Subjective/Events-last exam Patient reports some decreased facial swelling denies any difficulty with swallowing continues to cough significantly no hemoptysis or significant purulence reported. Denies chills or fever. Still concerned that upper extremity swelling especially on the right side is not going down. Appetite has improved. Objective Exam Vital Signs Vital Signs Date Time Temp Pulse Resp B/P (MAP) Pulse Ox O2 Delivery O2 Flow Rate FiO2 07/01/21 09:51 Room Air 07/01/21 07:52 95 07/01/21 05:44 36.9 110 22 116/66 (83) 06/29/21 20:23 3.00 Capillary Refill : General Appearance: No Apparent Distress Respiratory: Accessory Muscle Use, Wheezing (Bilateral with equal breath sounds bilaterally. Scattered rhonchi noted as well throughout. Predominantly noted on expiration in regards to wheezing.) Cardiovascular: Regular Rate, Rhythm, No Edema, No Gallop, No JVD, No Murmur, Normal Peripheral Pulses Extremity: Other (Trace lower extremity edema 3+ right upper extremity edema 2+ left upper extremity edema with facial edema noted) Results/Procedures Lab Laboratory Tests 07/01/21 04:00 Patient resulted labs reviewed. Assessment/Plan Assessment and Plan Assess & Plan/Chief Complaint A/P 1. 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 Facial swelling is starting to imp rove with patient undergoing both chemo and radiation therapy. Continue per medical oncology. 2. Likely acute COPD exacerbation With no evidence to suggest bacterial infectious component. Will initiate IV steroid therapy and continue to monitor due to mild respiratory distress. BRITTA DUMAS MD Jul 01, 2021 10:38
--- NOTE | 2021-07-01 12:55 | Physical Therapy Daily Note ---
PT Daily Note-Current Subjective Pt reports he might be doing a bit better but still having trouble breathing. Transfers SCALE: Activities may be completed with or without assistive devices. 3-Drgbwrzwxc-beohhkq completes the activity by him/herself with no assistance from a helper. 5-Set-up or Clean-up Assistance-helper sets up or cleans up; patient completes activity. [place] assists only prior to or following the activity. 4-Supervision or Touching Assistance-helper provides verbal cues and/or touching/steadying and/or contact guard assistance as patient completes activity. Assistance may be provided throughout the activity or intermittently. 3-Partial/Moderate Assistance-helper does LESS THAN HALF the effort. [place] lifts, holds or supports trunk or limbs, but provides less than half the effort. 2-Substantial/Maximal Assistance-helper does MORE THAN HALF the effort. [place] lifts or holds trunk or limbs and provides more than half the effort. 6-Mgahttjhq-ogrhdc does ALL the effort. Patient does none of the effort to complete the activity. Or, the assistance of 2 or more helpers is required for the patient to complete the activity. If activity was not attempted, code reason: 7-Patient Refused. 9-Not Applicable-not attempted and the patient did not perform the activity before the current illness, exacerbation or injury. 10-Not Attempted due to Environmental Limitations-(lack of equipment, weather restraints, etc.). 88-Not Attempted due to Medical Conditions or Safety Concerns. Gait Training Gait Assistive Device: FWW Ambulate 300ft with FWW and CGA. Verbal cues to pace. PT Welding Rod Coater Goals Welding Rod Coater Goals PT Welding Rod Coater Goals Time Frame: Jun 29, 2021 Roll Left & Right (QC): 6 Sit to Lying (QC): 6 Lying-Sitting on Side/Bed(QC): 6 Sit to Stand (QC): 5 Chair/Zhb-vx-Xikvc Xfer(QC): 5 Toilet Transfer (QC): 5 Car Transfer (QC): 5 Does the Patient Walk: Yes Walk 10 feet (QC): 5 Walk 50ft with 2 Turns (QC): 5 Walk 150 ft (QC): 5 Walking 10ft on Uneven Surface: 5 1 Step (curb) (QC): 4 4 Steps (QC): 4 12 Steps (QC): 88 Picking up an Object (QC): 88 Wheel 50 feet with 2 turns (QC: 9 Wheel 150 feet: 9 PT Plan Treatment/Plan Treatment Plan: Continue Plan of Care Treatment Plan: Education, Functional Activity Yulissa, Functional Strength, Gait, Safety, Therapeutic Exercise, Transfers Treatment Duration: Jun 29, 2021 Frequency: 6 times per week Estimated Hrs Per Day: .25 hour per day Patient and/or Family Agrees t: Yes Time/GCodes Time In: 914 Time Out: 929 Total Billed Treatment Time: 15 Total Billed Treatment visit, gait 15 min LEODAN DE JESUS PT Jul 01, 2021 12:55
[2021-07-01] MEDS: methylPREDNISolone 125 MG (Solu-MEDROL) VIAL IVP SCH ×2 (13:02→21:37)
[2021-07-01 17:03] VITALS: BP 179/81
[2021-07-01] MEDS: cloNIDine 0.1 MG (CATAPRES) TAB PO PRN (17:27)
[2021-07-01 19:51] VITALS: BP 128/79
[2021-07-01] MEDS: ENOXAPARIN 40 MG/0.4 ML (LOVENOX) SYR SC SCH (20:22)
[2021-07-01] MEDS: MONTELUKAST 10 MG (SINGULAIR) TAB PO SCH (20:22)
[2021-07-01] MEDS: ZOLPIDEM 5 MG (AMBIEN) TAB PO SCH (21:37)
[2021-07-02] MEDS: guaiFENesin/CODEINE (ROBITUSSIN AC) 10ML UDC PO PRN ×2 (00:22→20:06)
[2021-07-02] MEDS: RT-ALBUTEROL/IPRATROPIUM 3 ML (DUONEB) VIAL INH SCH ×6 (02:53→22:23)
[2021-07-02] MEDS: ALPRAZolam 0.25 MG (XANAX) TAB PO PRN ×2 (04:05→20:05)
[2021-07-02] MEDS: HYDROcodone/APAP 5 MG/325 MG (LORTAB) TAB PO PRN (04:05)
[2021-07-02] MEDS: methylPREDNISolone 125 MG (Solu-MEDROL) VIAL IVP SCH ×3 (06:01→21:43)
[2021-07-02 07:34] VITALS: BP 126/88
[2021-07-02] MEDS: RT--FLUTICASONE/SALMETEROL 113-14 (AIRDUO RespiCLICK) IH SCH ×2 (07:44→22:23)
[2021-07-02] MEDS: amLODIPine 5 MG (NORVASC) TAB PO SCH (08:02)
[2021-07-02] MEDS: FAMOTIDINE 20 MG (PEPCID) TABLET PO SCH ×2 (08:02→20:05)
[2021-07-02] MEDS: SENNA W/DOCUSATE (SENOKOT S) TABLET PO SCH ×2 (08:03→20:06)
[2021-07-02] MEDS: polyethylene glycoL POWDER 17 GM (MIRALAX) PACK PO SCH ×2 (08:03→20:06)
[2021-07-02 08:04] LABS: BASOPHILS % (AUTO) 0 % (0-10); MEAN CORPUSCULAR VOLUME 77 fL (80-99)
[2021-07-02] MEDS: SODIUM CHLORIDE 1 GM TABLET PO SCH ×3 (08:04→20:08)
[2021-07-02 08:06] LABS: EOSINOPHILS % (AUTO) 0 % (0-10); HEMATOCRIT 29 % (40-54); HEMOGLOBIN 10.1 g/dL (13.3-17.7); LYMPHOCYTES # (AUTO) 0.1 10^3/uL (1.0-4.0); LYMPHOCYTES % (AUTO) 1 % (12-44); MEAN CORPUSCULAR HEMOGLOBIN 27 pg (25-34); MEAN CORPUSCULAR HGB CONC 35 g/dL (32-36); MEAN PLATELET VOLUME 9.4 fL (9.0-12.2); MONOCYTES # (AUTO) 0.2 10^3/uL (0.0-1.0); MONOCYTES % (AUTO) 2 % (0-12); NEUTROPHILS # (AUTO) 8.5 10^3/uL (1.8-7.8); NEUTROPHILS % (AUTO) 95 % (42-75); PLATELET COUNT 118 10^3/uL (130-400)
[2021-07-02 08:11] LABS: POTASSIUM 3.5 MMOL/L (3.6-5.0)
[2021-07-02 08:12] LABS: CALCIUM 8.4 MG/DL (8.5-10.1)
[2021-07-02 08:16] LABS: CREATININE SERUM 0.59 MG/DL (0.60-1.30)
--- NOTE | 2021-07-02 10:51 | Progress Note - Hospitalist ---
Subjective HPI/CC On Admission Date Seen by Provider: Jul 02, 2021 Time Seen by Provider: 08:00 Subjective/Events-last exam Patient eating well without dysphagia denies abdominal pain cough about the same no shortness of breath at rest no hemoptysis yellowish sputum to clear unchanged no night sweats chills or fever reported. Objective Exam Vital Signs Vital Signs Date Time Temp Pulse Resp B/P (MAP) Pulse Ox O2 Delivery O2 Flow Rate FiO2 07/02/21 08:00 Room Air 07/02/21 07:43 94 0.00 07/02/21 07:34 36.8 97 20 126/88 (101) Capillary Refill : General Appearance: No Apparent Distress Neck: Full Range of Motion, Non Tender, Other (Decreasing facial edema) Respiratory: No Accessory Muscle Use, No Respiratory Distress, Other (Scattered rhonchi with diffuse expiratory mild wheezing a little more air movement today than yesterday breath sounds equal bilaterally.) Cardiovascular: Regular Rate, Rhythm, No Gallop, No Murmur Extremity: Other (3+ edema of the right upper extremity 2+ to the left upper extremity unchanged from yesterday trace edema of the lower extremities unchanged) Results/Procedures Lab Laboratory Tests 07/02/21 07:30 Patient resulted labs reviewed. Assessment/Plan Assessment and Plan Assess & Plan/Chief Complaint A/P 1. 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 Facial swelling is starting to improve with patient undergoing both chemo and radiation therapy. Continue per medical oncology. 2. Likely acute COPD exacerbation With no evidence to suggest bacterial infectious component. White count normalizing patient tolerating steroids still has significant wheezing we will continue current IV dose. 3. 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 BRITTA DUMAS MD Jul 02, 2021 10:51
[2021-07-02 19:38] VITALS: BP 137/93
[2021-07-02] MEDS: MONTELUKAST 10 MG (SINGULAIR) TAB PO SCH (20:05)
[2021-07-02] MEDS: ENOXAPARIN 40 MG/0.4 ML (LOVENOX) SYR SC SCH (20:06)
[2021-07-02] MEDS: ZOLPIDEM 5 MG (AMBIEN) TAB PO SCH (21:43)
[2021-07-03] MEDS: RT-ALBUTEROL/IPRATROPIUM 3 ML (DUONEB) VIAL INH PRN (00:26)
[2021-07-03] MEDS: guaiFENesin/CODEINE (ROBITUSSIN AC) 10ML UDC PO PRN ×3 (01:46→21:32)
[2021-07-03] MEDS: HYDROcodone/APAP 5 MG/325 MG (LORTAB) TAB PO PRN ×2 (01:46→09:15)
[2021-07-03] MEDS: RT-ALBUTEROL/IPRATROPIUM 3 ML (DUONEB) VIAL INH SCH ×6 (02:48→21:06)
[2021-07-03] MEDS: methylPREDNISolone 125 MG (Solu-MEDROL) VIAL IVP SCH ×3 (06:12→21:18)
[2021-07-03 07:35] LABS: CALCIUM 8.9 MG/DL (8.5-10.1); CREATININE SERUM 0.62 MG/DL (0.60-1.30); POTASSIUM 3.6 MMOL/L (3.6-5.0)
[2021-07-03] MEDS: RT--FLUTICASONE/SALMETEROL 113-14 (AIRDUO RespiCLICK) IH SCH ×2 (07:38→21:06)
[2021-07-03 07:53] VITALS: BP 179/93
[2021-07-03] MEDS: cloNIDine 0.1 MG (CATAPRES) TAB PO PRN (08:30)
[2021-07-03] MEDS: amLODIPine 5 MG (NORVASC) TAB PO SCH (08:30)
[2021-07-03] MEDS: SENNA W/DOCUSATE (SENOKOT S) TABLET PO SCH ×2 (08:30→21:18)
[2021-07-03] MEDS: polyethylene glycoL POWDER 17 GM (MIRALAX) PACK PO SCH ×2 (08:31→21:18)
[2021-07-03] MEDS: FAMOTIDINE 20 MG (PEPCID) TABLET PO SCH ×2 (08:31→21:18)
[2021-07-03] MEDS: ALPRAZolam 0.25 MG (XANAX) TAB PO PRN ×2 (09:15→21:19)
--- NOTE | 2021-07-03 09:22 | Occ Therapy Progress Note ---
Therapy Progress Note Pt declined any OT at this time due to fatigue from just getting back from Chemotherapy. Will attempt at later time. MARE BANKS Jul 03, 2021 09:22
[2021-07-03] MEDS: SODIUM CHLORIDE 1 GM TABLET PO SCH ×3 (09:56→21:31)
--- NOTE | 2021-07-03 10:01 | Physical Therapy Daily Note ---
PT Daily Note-Current Subjective Patient presented in bed and agreed to walking with therapy today. Mental Status Patient Orientation: Person, Place, Time, Situation Attachments: Galvin Catheter Transfers SCALE: Activities may be completed with or without assistive devices. 6-Uhwabvlmmc-temhieo completes the activity by him/herself with no assistance from a helper. 5-Set-up or Clean-up Assistance-helper sets up or cleans up; patient completes activity. [place] assists only prior to or following the activity. 4-Supervision or Touching Assistance-helper provides verbal cues and/or touching/steadying and/or contact guard assistance as patient completes activity. Assistance may be provided throughout the activity or intermittently. 3-Partial/Moderate Assistance-helper does LESS THAN HALF the effort. [place] lifts, holds or supports trunk or limbs, but provides less than half the effort. 2-Substantial/Maximal Assistance-helper does MORE THAN HALF the effort. [place] lifts or holds trunk or limbs and provides more than half the effort. 2-Orfbhwims-tgryty does ALL the effort. Patient does none of the effort to complete the activity. Or, the assistance of 2 or more helpers is required for the patient to complete the activity. If activity was not attempted, code reason: 7-Patient Refused. 9-Not Applicable-not attempted and the patient did not perform the activity before the current illness, exacerbation or injury. 10-Not Attempted due to Environmental Limitations-(lack of equipment, weather restraints, etc.). 88-Not Attempted due to Medical Conditions or Safety Concerns. Lying to Sitting/Side of Bed(Q: 4 Sit to Stand (QC): 4 Gait Training Does the Patient Walk?: Yes Distance: 200' Walk 10 feet (QC): 4 Walk 50 ft with 2 Turns(QC): 4 Walk 150 ft (QC): 4 Gait Assistive Device: FWW Patient ambulated with CGA for 200' with FWW. Patient required multiple rest breaks to catch his breath while ambulating. Exercises Seated Therapy Exercises: Ankle pumps, Long arc quads, Hip flexion, Hip abd/add Seated Reps: 10 Assessment Patient completed therapy with multiple rest breaks due to patient being short of breath. Patient continues to be CGA for all transfers and ambulation. PT Care Home Goals Travel Agent Goals PT Care Home Goals Time Frame: Jun 29, 2021 Roll Left & Right (QC): 6 Sit to Lying (QC): 6 Lying-Sitting on Side/Bed(QC): 6 Sit to Stand (QC): 5 Chair/Cik-jf-Ceeyj Xfer(QC): 5 Toilet Transfer (QC): 5 Car Transfer (QC): 5 Does the Patient Walk: Yes Walk 10 feet (QC): 5 Walk 50ft with 2 Turns (QC): 5 Walk 150 ft (QC): 5 Walking 10ft on Uneven Surface: 5 1 Step (curb) (QC): 4 4 Steps (QC): 4 12 Steps (QC): 88 Picking up an Object (QC): 88 Wheel 50 feet with 2 turns (QC: 9 Wheel 150 feet: 9 PT Plan Treatment/Plan Treatment Plan: Continue Plan of Care Treatment Plan: Education, Functional Activity Yulissa, Functional Strength, Gait, Safety, Therapeutic Exercise, Transfers Treatment Duration: Jun 29, 2021 Frequency: 6 times per week Estimated Hrs Per Day: .25 hour per day Patient and/or Family Agrees t: Yes Time/GCodes Time In: 815 Time Out: 830 Total Billed Treatment Time: 15 Total Billed Treatment 1 Visit FA 15 min LEANDRO PHILLIPS PT Jul 03, 2021 10:01
--- NOTE | 2021-07-03 11:26 | Progress Note - Hospitalist ---
Subjective HPI/CC On Admission Date Seen by Provider: Jul 03, 2021 Time Seen by Provider: 09:00 Patient returned from radiation therapy. He voices no complaints reports no pain and is concerned about ongoing swelling of the upper extremities. No difficulty with swallowing no night sweats chills fever or change in oxygen requirement. Objective Exam Vital Signs Vital Signs Date Time Temp Pulse Resp B/P (MAP) Pulse Ox O2 Delivery O2 Flow Rate FiO2 07/03/21 11:00 95 Room Air 07/03/21 08:00 0.00 07/03/21 07:53 36.6 95 20 179/93 (121) Capillary Refill : General Appearance: No Apparent Distress Neck: Other (Decreased swelling of the head and neck noted.) Respiratory: No Accessory Muscle Use, No Respiratory Distress, Other (Coarse breath sounds bilaterally mild bilateral expiratory wheezing) Cardiovascular: No Murmur Results/Procedures Lab Laboratory Tests 07/03/21 07:00 Patient resulted labs reviewed. Assessment/Plan Assessment and Plan Assess & Plan/Chief Complaint A/P 1. 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 Facial swelling is starting to improve with patient undergoing both chemo and radiation therapy. Continue per medical oncology. 2. Likely acute COPD exacerbation With no evidence to suggest bacterial infectious component. While significant chest congestion persists he does appear to be moving more air and oxygen requirement stable with no shortness of breath at rest reported.. 3. 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 BRITTA DUMAS MD Jul 03, 2021 11:26
[2021-07-03] MEDS: diphenhydrAMINE 25 MG TAB (BENADRYL) PO PRN ×2 (12:35→21:18)
--- NOTE | 2021-07-03 13:07 | Occupational Ther Daily Note ---
OT Current Status-Daily Note Subjective Pt alert, lying in bed. Pt requests to talk to nrsg about rash on R forearm, educated pt on nrsg call light then MAR reported to nrsg. Pt agrees to therapy. Pt c/o pain 09/24, nrsg aware. Mental Status/Objective Patient Orientation: Person, Place, Time, Situation Attachments: Galvin Catheter, IV ADL-Treatment Supine <--> EOB independent. Ambulated using FWW to bathroom by self then stood at sink to complete sponge bath and grooming independently. Pt fatigues quickly and requires recovery break. After therapy, pt lying in bed with call light/phone in reach. All needs met in room. Therapy Code Descriptions/Definitions Functional [place] Measure: 0=Not Assessed/NA 4=Minimal Assistance 1=Total Assistance 5=Supervision or Setup 2=Maximal Assistance 6=Modified [place] 3=Moderate Assistance 7=Complete IndependenceSCALE: Activities may be completed with or without assistive devices. 4-Wfjuvmeqia-ewzryjx completes the activity by him/herself with no assistance from a helper. 5-Set-up or Clean-up Assistance-helper sets up or cleans up; patient completes activity. [place] assists only prior to or following the activity. 4-Supervision or Touching Assistance-helper provides verbal cues and/or touching/steadying and/or contact guard assistance as patient completes activity. Assistance may be provided throughout the activity or intermittently. 3-Partial/Moderate Assistance-helper does LESS THAN HALF the effort. [place] lifts, holds or supports trunk or limbs, but provides less than half the effort. 2-Substantial/Maximal Assistance-helper does MORE THAN HALF the effort. [place] lifts or holds trunk or limbs and provides more than half the effort. 4-Fggpbpcyu-ulvhce does ALL the effort. Patient does none of the effort to complete the activity. Or, the assistance of 2 or more helpers is required for the patient to complete the activity. If activity was not attempted, code reason: 7-Patient Refused. 9-Not Applicable-not attempted and the patient did not perform the activity before the current illness, exacerbation or injury. 10-Not Attempted due to Environmental Limitations-(lack of equipment, weather restraints, etc.). 88-Not Attempted due to Medical Conditions or Safety Concerns. Oral Hygiene (QC): 6 (cleanses tongue and gums, no teeth or dentures) Shower/Bathe Self (QC): 6 (Standing at sink to complete sponge bath) OT Delivery Truck Driver Heavy Goals Delivery Truck Driver Heavy Goals Time Frame: Jul 07, 2021 Eating (QC): 6 Oral Hygiene (QC): 6 Toileting Hygiene (QC): 6 Shower/Bathe Self (QC): 6 Upper Body Dressing (QC): 6 Lower Body Dressing (QC): 6 On/Off Footwear (QC): 6 Additional Goals: 1-Demonstrate ADL Tasks, 2-Verbalize Understanding, 3-ImproveStrength/[place]ulissa 1=Demonstrate adherence to instructed precautions during ADL tasks. 2=Patient will verbalize/demonstrate understanding of assistive devices/modifications for ADL. 3=Patient will improve strength/tolerance for activity to enable patient to perform ADL's. OT Education/Plan Problem List/Assessment Assessment: Decreased Activ Tolerance, Impaired Self-Care Skills Discharge Recommendations Plan/Recommendations: Continue POC Treatment Plan/Plan of Care Patient would benefit from OT for education, treatment and training to promote independence in ADL's, mobility, safety and/or upper extremity function for ADL's. Plan of Care: ADL Retraining, Functional Mobility, UE Funct Exercise/Act Treatment Duration: Jul 07, 2021 Frequency: 5 times per week Estimated Hrs Per Day: .25 hour per day Rehab Potential: Fair Time/GCodes Start Time: 11:40 Stop Time: 12:00 Total Time Billed (hr/min): 20 Billed Treatment Time 1 visit-ADL 1 (20 min) MARE BANKS Jul 03, 2021 13:07
[2021-07-03 20:38] VITALS: BP 134/89
[2021-07-03] MEDS: MONTELUKAST 10 MG (SINGULAIR) TAB PO SCH (21:18)
[2021-07-03] MEDS: ENOXAPARIN 40 MG/0.4 ML (LOVENOX) SYR SC SCH (21:19)
[2021-07-03] MEDS: ZOLPIDEM 5 MG (AMBIEN) TAB PO SCH (21:59)
[2021-07-04] MEDS: guaiFENesin/CODEINE (ROBITUSSIN AC) 10ML UDC PO PRN ×2 (01:08→08:28)
[2021-07-04] MEDS: RT-ALBUTEROL/IPRATROPIUM 3 ML (DUONEB) VIAL INH SCH ×4 (02:33→14:21)
[2021-07-04] MEDS: HYDROcodone/APAP 5 MG/325 MG (LORTAB) TAB PO PRN (03:30)
[2021-07-04] MEDS: diphenhydrAMINE 25 MG TAB (BENADRYL) PO PRN (03:31)
[2021-07-04] MEDS: methylPREDNISolone 125 MG (Solu-MEDROL) VIAL IVP SCH ×2 (05:03→13:17)
[2021-07-04] MEDS: RT--FLUTICASONE/SALMETEROL 113-14 (AIRDUO RespiCLICK) IH SCH (07:18)
[2021-07-04 07:58] VITALS: BP 128/86
[2021-07-04] MEDS: SODIUM CHLORIDE 1 GM TABLET PO SCH ×2 (08:28→13:17)
[2021-07-04] MEDS: polyethylene glycoL POWDER 17 GM (MIRALAX) PACK PO SCH (08:28)
[2021-07-04] MEDS: SENNA W/DOCUSATE (SENOKOT S) TABLET PO SCH (08:28)
[2021-07-04] MEDS: FAMOTIDINE 20 MG (PEPCID) TABLET PO SCH (08:28)
[2021-07-04] MEDS: ALPRAZolam 0.25 MG (XANAX) TAB PO PRN (08:28)
[2021-07-04] MEDS: amLODIPine 5 MG (NORVASC) TAB PO SCH (08:28)
--- NOTE | 2021-07-04 09:07 | Physical Therapy Daily Note ---
PT Daily Note-Current Subjective Patient is sitting in bed and reports that he is tired and has been up for quite a few hours. Patient reports that he is still coughing a lot and gets short of breath at times. Mental Status Attachments: Galvin Catheter Transfers SCALE: Activities may be completed with or without assistive devices. 3-Boieqmunmy-blbxeel completes the activity by him/herself with no assistance f rom a helper. 5-Set-up or Clean-up Assistance-helper sets up or cleans up; patient completes activity. [place] assists only prior to or following the activity. 4-Supervision or Touching Assistance-helper provides verbal cues and/or touching/steadying and/or contact guard assistance as patient completes activity. Assistance may be provided throughout the activity or intermittently. 3-Partial/Moderate Assistance-helper does LESS THAN HALF the effort. [place] lifts, holds or supports trunk or limbs, but provides less than half the effort. 2-Substantial/Maximal Assistance-helper does MORE THAN HALF the effort. [place] lifts or holds trunk or limbs and provides more than half the effort. 5-Bpwgfhosl-ffogen does ALL the effort. Patient does none of the effort to complete the activity. Or, the assistance of 2 or more helpers is required for the patient to complete the activity. If activity was not attempted, code reason: 7-Patient Refused. 9-Not Applicable-not attempted and the patient did not perform the activity before the current illness, exacerbation or injury. 10-Not Attempted due to Environmental Limitations-(lack of equipment, weather restraints, etc.). 88-Not Attempted due to Medical Conditions or Safety Concerns. Sit to Stand (QC): 3 (min) Toilet Transfer (QC): 5 Gait Training Does the Patient Walk?: Yes Distance: 150' Walk 10 feet (QC): 4 Walk 50 ft with 2 Turns(QC): 4 Walk 150 ft (QC): 4 Gait Assistive Device: FWW Patient required rest breaks during ambulation due to fatigue and SOB. Patient O2 saturation during ambulation with 95% on room air. Assessment Patient ambulated for 150 feet with FWW and CGA. Patient is still very swollen in bilateral UE and is still coughing frequently. Patient requires rest breaks with ambulation due to SOB and coughing. Patient was able to perform toilet tr ansfer with SBA. PT Long-Term Goals Long-Term Goals PT Heel Lift Gouger Goals Time Frame: Jun 29, 2021 Roll Left & Right (QC): 6 Sit to Lying (QC): 6 Lying-Sitting on Side/Bed(QC): 6 Sit to Stand (QC): 5 Chair/Gqi-wp-Nspod Xfer(QC): 5 Toilet Transfer (QC): 5 Car Transfer (QC): 5 Does the Patient Walk: Yes Walk 10 feet (QC): 5 Walk 50ft with 2 Turns (QC): 5 Walk 150 ft (QC): 5 Walking 10ft on Uneven Surface: 5 1 Step (curb) (QC): 4 4 Steps (QC): 4 12 Steps (QC): 88 Picking up an Object (QC): 88 Wheel 50 feet with 2 turns (QC: 9 Wheel 150 feet: 9 PT Plan Treatment/Plan Treatment Plan: Continue Plan of Care Treatment Plan: Education, Functional Activity Yulissa, Functional Strength, Gait, Safety, Therapeutic Exercise, Transfers Treatment Duration: Jun 29, 2021 Frequency: 6 times per week Estimated Hrs Per Day: .25 hour per day Patient and/or Family Agrees t: Yes Time/GCodes Time In: 830 Time Out: 845 Total Billed Treatment Time: 15 Total Billed Treatment 1 Visit FA 15 min LEANDRO PHILLIPS PT Jul 04, 2021 09:07
--- NOTE | 2021-07-04 09:37 | Progress Note - Hospitalist ---
Subjective HPI/CC On Admission Date Seen by Provider: Jul 04, 2021 Time Seen by Provider: 10:00 Patient returned from radiation therapy. He voices no complaints reports no pain and is concerned about ongoing swelling of the upper extremities. No difficulty with swallowing no night sweats chills fever or change in oxygen requirement. Subjective/Events-last exam Pt is doing about the same Covid test came back negative Cough is from the lung cancer Superior vena cava syndrome causes backflow and he did have a nosebleed last night Sodium level is 130 on sodium tablets IV steroids maintained Review of Systems General: Fatigue, Malaise Objective Exam Vital Signs Vital Signs Date Time Temp Pulse Resp B/P (MAP) Pulse Ox O2 Delivery O2 Flow Rate FiO2 07/04/21 14:22 96 Room Air 07/04/21 08:00 0.00 07/04/21 07:58 36.4 86 24 128/86 (100) Capillary Refill : General Appearance: No Apparent Distress, WD/WN, Chronically ill Respiratory: Lungs Clear, Normal Breath Sounds Cardiovascular: Regular Rate, Rhythm Neurologic/Psychiatric: Alert, Oriented x3, No Motor/Sensory Deficits, Normal Mood/Affect Results/Procedures Lab Laboratory Tests 07/04/21 09:35 Patient resulted labs reviewed. 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
[2021-07-04 09:44] LABS: BASOPHILS % (AUTO) 0 % (0-10); EOSINOPHILS % (AUTO) 0 % (0-10); HEMATOCRIT 31 % (40-54); HEMOGLOBIN 10.7 g/dL (13.3-17.7); LYMPHOCYTES # (AUTO) 0.1 10^3/uL (1.0-4.0); LYMPHOCYTES % (AUTO) 1 % (12-44); MEAN CORPUSCULAR HEMOGLOBIN 27 pg (25-34); MEAN CORPUSCULAR HGB CONC 35 g/dL (32-36); MEAN CORPUSCULAR VOLUME 79 fL (80-99); MEAN PLATELET VOLUME 8.8 fL (9.0-12.2); MONOCYTES # (AUTO) 0.5 10^3/uL (0.0-1.0); MONOCYTES % (AUTO) 7 % (0-12); NEUTROPHILS # (AUTO) 6.1 10^3/uL (1.8-7.8); NEUTROPHILS % (AUTO) 90 % (42-75); PLATELET COUNT 159 10^3/uL (130-400); WHITE BLOOD COUNT 6.7 10^3/uL (4.3-11.0)
[2021-07-04 10:07] LABS: BILIRUBIN,TOTAL 0.7 MG/DL (0.1-1.0); CALCIUM 8.8 MG/DL (8.5-10.1); CREATININE SERUM 0.64 MG/DL (0.60-1.30); POTASSIUM 3.7 MMOL/L (3.6-5.0); TOTAL PROTEIN 5.7 GM/DL (6.4-8.2)
--- NOTE | 2021-07-04 11:07 | Occupational Ther Daily Note ---
OT Current Status-Daily Note Subjective Pt alert, sitting in recliner. Pt is PUI at this time until test results come back. No c/o pain. Pt agrees to OT. Mental Status/Objective Patient Orientation: Person, Place, Time, Situation Attachments: Galvin Catheter, IV ADL-Treatment Therapy Code Descriptions/Definitions Functional [place] Measure: 0=Not Assessed/NA 4=Minimal Assistance 1=Total Assistance 5=Supervision or Setup 2=Maximal Assistance 6=Modified [place] 3=Moderate Assistance 7=Complete IndependenceSCALE: Activities may be completed with or without assistive devices. 3-Ngnxhscqry-lldknfh completes the activity by him/herself with no assistance from a helper. 5-Set-up or Clean-up Assistance-helper sets up or cleans up; patient completes activity. [place] assists only prior to or following the activity. 4-Supervision or Touching Assistance-helper provides verbal cues and/or touching/steadying and/or contact guard assistance as patient completes activity. Assistance may be provided throughout the activity or intermittently. 3-Partial/Moderate Assistance-helper does LESS THAN HALF the effort. [place] lifts, holds or supports trunk or limbs, but provides less than half the effort. 2-Substantial/Maximal Assistance-helper does MORE THAN HALF the effort. [place] lifts or holds trunk or limbs and provides more than half the effort. 2-Ljhfewyvt-sbffvv does ALL the effort. Patient does none of the effort to complete the activity. Or, the assistance of 2 or more helpers is required for the patient to complete the activity. If activity was not attempted, code reason: 7-Patient Refused. 9-Not Applicable-not attempted and the patient did not perform the activity before the current illness, exacerbation or injury. 10-Not Attempted due to Environmental Limitations-(lack of equipment, weather restraints, etc.). 88-Not Attempted due to Medical Conditions or Safety Concerns. Other Treatment Pt declines any ADLs at this time stating that he is waiting on his treatment. Pt does agree to ambulate around room using FWW, 3x's. Pt able to complete this with SBA, no LOB noted. After therapy, pt sitting in recliner with call light/phone in reach. All needs met in room. OT Intermediate Goals Intermediate Goals Time Frame: Jul 07, 2021 Eating (QC): 6 Oral Hygiene (QC): 6 Toileting Hygiene (QC): 6 Shower/Bathe Self (QC): 6 Upper Body Dressing (QC): 6 Lower Body Dressing (QC): 6 On/Off Footwear (QC): 6 Additional Goals: 1-Demonstrate ADL Tasks, 2-Verbalize Understanding, 3- ImproveStrength/Yulissa 1=Demonstrate adherence to instructed precautions during ADL tasks. 2=Patient will verbalize/demonstrate understanding of assistive devices/modifications for ADL. 3=Patient will improve strength/tolerance for activity to enable patient to perform ADL's. OT Education/Plan Problem List/Assessment Assessment: Decreased Activ Tolerance Discharge Recommendations Plan/Recommendations: Continue POC Treatment Plan/Plan of Care Patient would benefit from OT for education, treatment and training to promote independence in ADL's, mobility, safety and/or upper extremity function for ADL's. Plan of Care: ADL Retraining, Functional Mobility, UE Funct Exercise/Act Treatment Duration: Jul 07, 2021 Frequency: 5 times per week Estimated Hrs Per Day: .25 hour per day Rehab Potential: Fair Time/GCodes Start Time: 09:30 Stop Time: 09:50 Total Time Billed (hr/min): 20 Billed Treatment Time 1 visit-FA 1 (20 min) MARE BANKS Jul 04, 2021 11:07
[2021-07-04] MEDS ORDERED: ZOLP5TAB7 PO (14:21)
[2021-07-04] MEDS ORDERED: IPRA3AMP31 INH (14:21)
[2021-07-04] MEDS ORDERED: FAMO20TA5 PO (14:21)
[2021-07-04] MEDS ORDERED: PRED10TA22 PO (14:21)
[2021-07-04] MEDS ORDERED: ACHD5005 PO (14:21)
[2021-07-04] MEDS ORDERED: MONT-40 PO (14:21)
[2021-07-04] MEDS ORDERED: AMLO-250 PO (14:21)
[2021-07-04] MEDS ORDERED: NF-NACL1GT PO (14:21)
--- NOTE | 2021-07-04 14:22 | D/C HH Face to Face Order ---
D/C Face to Face Orders Reconcile Patient Problems Problems Reviewed?: Yes Instructions for Patient Via Ly Knowable, Patient Instructions/FollowUp: PCP 1 week Physician to follow Patient: PCP Discharge Diet for Home: No Restrictions Patient Problems: Lung cancer Patient Data-Allergies,Ht & Wt Patient Allergies: Coded Allergies: Penicillins (Verified Allergy, Unknown, 06/25/14) melatonin (Verified Allergy, Unknown, 06/11/21) penicillin (Unverified Allergy, Unknown, 01/03/15) Height (Feet): 6 Height (Inches): 0 Weight (Pounds): 169 Home Health Need/Face to Face Date of Face to Face: Jul 04, 2021 Clinical Findings: Generalized weakness and fatigue, Instability, Muscle weakness I have seen Pt gkxr-ez-osfl: Yes Discharged To: Home Diagnosis/Conditions: Lung cancer Patient is Homebound due to: Steve fall risk due to instabilty, Muscle weakness Homebound Status Due to the above stated illness, injury or surgical procedure (medical condition or diagnosis) and associated clinical findings, the patient is homebound because of his/her inability to leave home except with aid of a supportive device and/or person AND leaving the home requires a considerable and taxing effort or is medically contraindicated. Pt req the following assistanc: Walker Certify Stmt I certify that this patient is under my care and that I, a nurse practitioner or a physician; a enrichment assistant working with me, had a face to face encounter that - meets the physician face to face encounter requirements with this patient as dated. JESSICA GALVEZ DO Jul 04, 2021 14:22
--- NOTE | 2021-07-04 14:23 | Discharge Summary ---
Discharge Summary Hospital Course Was the Problem List Reviewed?: Yes Problems/Dx: (1) Pneumothorax, right Status: Resolved (2) COPD exacerbation Status: Acute (3) Superior vena cava obstruction Status: Acute (4) Hyponatremia Status: Acute (5) Mass of right lung Status: Acute (6) History of alcohol abuse Status: Chronic (7) COPD (chronic obstructive pulmonary disease) Status: Chronic Hospital Course Date of Admission: Jun 22, 2021 at 13:50 Admission Diagnosis : Family Physician/Provider: Solange Ko Aprn Date of Discharge: 07/04/21 Discharge Diagnosis: Lung cancer, superior vena cava syndrome, hyponatremia, acute exacerbation of COPD, smoker, alcohol abuse Hospital Course: Patient had an uneventful hospital course but lengthy when he was admitted for r ight-sided pneumothorax requiring Thora vent patient was placed on fluid restriction for severe hyponatremia due to paraneoplastic syndrome. Patient had a lengthy hospital course requiring IV steroid and Florinef and was ultimately discontinued. Oncology was consulted and criteria for radiation treatment and patient was deemed stable for discharge after hyponatremia is corrected with a large amount of sodium tablets and hypertonic saline. Labs and Pending Lab Test: Laboratory Tests 07/04/21 08:40: Influenza Type A (RT-PCR) Not Detected, Influenza Type B (RT-PCR) Not Detected, SARS-CoV-2 RNA (RT-PCR) Not Detected 07/04/21 09:35: White Blood Count 6.7, Red Blood Count 3.90L, Hemoglobin 10.7L, Hematocrit 31L, Mean Corpuscular Volume 79L, Mean Corpuscular Hemoglobin 27, Mean Corpuscular Hemoglobin Concent 35, Red Cell Distribution Width 16.6H, Platelet Count 159, Mean Platelet Volume 8.8L, Immature Granulocyte % (Auto) 2, Neutrophils (%) (Auto) 90H, Lymphocytes (%) (Auto) 1L, Monocytes (%) (Auto) 7, Eosinophils (%) (Auto) 0, Basophils (%) (Auto) 0, Neutrophils # (Auto) 6.1, Lymphocytes # (Auto) 0.1L, Monocytes # (Auto) 0.5, Eosinophils # (Auto) 0.0, Basophils # (Auto) 0.0, Immature Granulocyte # (Auto) 0.1, Sodium Level 131L, Potassium Level 3.7, Chloride Level 95L, Carbon Dioxide Level 29, Anion Gap 7, Blood Urea Nitrogen 11, Creatinine 0.64, Estimat Glomerular Filtration Rate 108, BUN/Creatinine Ratio 17, Glucose Level 109H, Calcium Level 8.8, Corrected Calcium 9.6, Total Bilirubin 0.7, Aspartate Amino Transf (AST/SGOT) 34, Alanine Aminotransferase (ALT/SGPT) 88H, Alkaline Phosphatase 58, Total Protein 5.7L, Albumin 3.0L Home Meds Active Prednisone 10 Mg Tab.ds.pk 20 Mg PO DAILY Famotidine 20 Mg Tablet 20 Mg PO BID Montelukast Sodium 10 Mg Tablet 10 Mg PO HS Sodium Chloride 1 Gm Tab 2 Gm PO TID Zolpidem Tartrate 5 Mg Tablet 5 Mg PO HS HYDROcodone/APAP 5 MG/325 MG TAB (Acetaminophen/Hydrocodone Bitart) 1 Tab Tab 1 Ea PO Q6HR PRN Iprat-Albut 0.5-3(2.5) mg/3 ml (Ipratropium/Albuterol Sulfate) 3 Ml Ampul.neb 3 Ml INH RTQ4HR Amlodipine Besylate 5 Mg Tablet 5 Mg PO DAILY Reported Sleep Aid (Diphenhydramine HCl) 50 Mg/30 Ml Liquid 50 Mg PO HS PRN Symbicort 80-4.5 Mcg Inhaler (Budesonide/Formoterol Fumarate) 10.2 Gm Hfa.aer.ad 1-2 Puff INH DAILY PRN Furosemide 20 Mg Tablet 20 Mg PO DAILY PRN Assessment/Pt Instructions Radiation treatment every day 0900 Discharge Planning: <30 minutes discharge planning Discharge Physical Examination Vital Signs Vital Signs Date Time Temp Pulse Resp B/P (MAP) Pulse Ox O2 Delivery O2 Flow Rate FiO2 07/04/21 14:22 96 Room Air 07/04/21 08:00 0.00 07/04/21 07:58 36.4 86 24 128/86 (100) General Appearance: No Apparent Distress, WD/WN, Chronically ill Allergies: Coded Allergies: Penicillins (Verified Allergy, Unknown, 06/25/14) melatonin (Verified Allergy, Unknown, 06/11/21) penicillin (Unverified Allergy, Unknown, 01/03/15) Discharge Summary Date of Admission Jun 22, 2021 at 13:50 Date of Discharge Discharge Date: Jul 04, 2021 Discharge Diagnosis Assessment: Non-small cell lung cancer 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
--- NOTE | 2021-07-05 10:59 | Therapy Team Discharge Summary ---
Therapy Discharge Summary Discharge Recommendations Date of Discharge Jul 04, 2021 at 18:10 Occupational Therapy Pt admitted to [facility] with R pneumothorax. Pt's PLOF unknown, he indicates he has home health assistance with showering, but later indicated he was independent. Upon initial evaluation, pt was independent with eating, required set up with oral care, SBA showering, set up upper body dressing, SBA lower body dressing, independent with footwear and SBA toileting. OT txs focused on increasing BUE strength and activity tolerance, and increasing safety and independence with ADLs. At discharge, pt was independent with eating and oral care, declined other ADLs. Last performance with ADLs are as follows: set up upper body dressing and showering, supervision with LE dressing, SBA with toileting, and independent with footwear. Pt made progress towards goals, but did not attain all goals. Pt discharged from facility, d/c from OT. Decreased Activ Tolerance PT Fpc Goals Fpc Goals PT Fpc Goals Time Frame: Jun 29, 2021 Roll Left to Right (QC): 6 Sit to Lying (QC): 6 Lying-Sitting on Side/Bed(QC): 6 Sit to Stand (QC): 5 Chair/Rjq-zz-Khvbz Xfer(QC): 5 Car Transfer (QC): 5 Does the Patient Walk: Yes Walk 10 feet (QC): 5 Walk 10ft-Uneven Surface(QC): 5 Walk 50ft with 2 Turns (QC): 5 Walk 150 ft (QC): 5 Wheel 50 feet with 2 turns (QC: 9 1 Step (curb) (QC): 4 4 Steps (QC): 4 12 Steps (QC): 88 Picking up an Object (QC): 88 OT Fpc Goals Fpc Goals Time Frame: Jul 07, 2021 Eating (QC): 6 (met) Oral Hygiene (QC): 6 (met) Shower/Bathe Self (QC): 6 (not met) Upper Body Dressing (QC): 6 (not met) Lower Body Dressing (QC): 6 (not met) On/Off Footwear (QC): 6 (met) Toileting Hygiene (QC): 6 (not met) Toilet/Commode Transfer (QC): 5 Additional Goals: 1-Demonstrate ADL Tasks, 2-Verbalize Understanding, 3-ImproveStrength/Yulissa 1=Demonstrate adherence to instructed precautions during ADL tasks. 2=Patient will verbalize/demonstrate understanding of assistive devices/modifications for ADL. 3=Patient will improve strength/tolerance for activity to enable patient to perform ADL's. MECHELLE GUTHRIE OT Jul 05, 2021 10:59
--- NOTE | 2021-07-05 14:55 | Therapy Team Discharge Summary ---
Therapy Discharge Summary Discharge Recommendations Date of Discharge Jul 04, 2021 at 18:10 Physical Therapy Patient in hospital with right pneumothorax. Upon evaluation patient performed rolling and supine <-> sit with independence, sit <-> stand and transfers with CGA/SBA, toilet transfer CGA/SBA, ambulated 200' with a rolling walker with CGA/SBA. Patient has been performing bed mobility and transfer training, balance and endurance training, functional strengthening, gait training and education. Patient has made little to no progress. Functional mobility and juanita lity codes are about the same at discharge. Patient was discharged from this facility and will be discharged from PT at this time. Occupational Therapy Decreased Activ Tolerance PT Halfway Goals Sales Research Analyst Goals PT Halfway Goals Time Frame: Jun 29, 2021 Roll Left to Right (QC): 6 Sit to Lying (QC): 6 Lying-Sitting on Side/Bed(QC): 6 Sit to Stand (QC): 5 Chair/Hnw-od-Pjknp Xfer(QC): 5 Car Transfer (QC): 5 Does the Patient Walk: Yes Walk 10 feet (QC): 5 Walk 10ft-Uneven Surface(QC): 5 Walk 50ft with 2 Turns (QC): 5 Walk 150 ft (QC): 5 Wheel 50 feet with 2 turns (QC: 9 1 Step (curb) (QC): 4 4 Steps (QC): 4 12 Steps (QC): 88 Picking up an Object (QC): 88 OT Sales Research Analyst Goals Sales Research Analyst Goals Time Frame: Jul 07, 2021 Eating (QC): 6 (met) Oral Hygiene (QC): 6 (met) Shower/Bathe Self (QC): 6 (not met) Upper Body Dressing (QC): 6 (not met) Lower Body Dressing (QC): 6 (not met) On/Off Footwear (QC): 6 (met) Toileting Hygiene (QC): 6 (not met) Toilet/Commode Transfer (QC): 5 Additional Goals: 1-Demonstrate ADL Tasks, 2-Verbalize Understanding, 3- ImproveStrength/Yulissa 1=Demonstrate adherence to instructed precautions during ADL tasks. 2=Patient will verbalize/demonstrate understanding of assistive devices/modifications for ADL. 3=Patient will improve strength/tolerance for activity to enable patient to perform ADL's. ENOCH CASTILLO PT Jul 05, 2021 14:55
== END 2021-07-04 18:10 | disposition home health service (06) | DRG 300 ==
LOC: 4TH 13:50
PROVIDERS: ADMIT Family Medicine; ATTEND Internal Medicine
DX: I87.1 Compression of vein (principal); C34.11 Malignant neoplasm of upper lobe, right bronchus or lung; C79.31 Secondary malignant neoplasm of brain; J44.1 Chronic obstructive pulmonary disease with (acute) exacerbation; E87.1 Hypo-osmolality and hyponatremia; G13.1 Other systemic atrophy primarily affecting central nervous system in neoplastic disease; G47.00 Insomnia, unspecified; F10.10 Alcohol abuse, uncomplicated; Z20.822 Contact with and (suspected) exposure to COVID-19
CPT/HCPCS: 36415; 71045; 77280; 77290; 77307; 77334; 77336; 77417; 77470; 80048; 80053; 82947; 83735; 83880; 85007; 85025; 85027; 87636; 94640; 94760; 94761

== ENCOUNTER 2021-07-07 08:36 | Outpatient (RCR) | payer MEDICARE, MEDICAID ==
[2021-06-28 09:45] LABS: BASOPHILS % (AUTO) 0 % (0-10); EOSINOPHILS % (AUTO) 0 % (0-10); HEMATOCRIT 35 % (40-54); HEMOGLOBIN 12.1 g/dL (13.3-17.7); LYMPHOCYTES # (AUTO) 0.4 10^3/uL (1.0-4.0); LYMPHOCYTES % (AUTO) 5 % (12-44); MEAN CORPUSCULAR HEMOGLOBIN 27 pg (25-34); MEAN CORPUSCULAR HGB CONC 35 g/dL (32-36); MEAN CORPUSCULAR VOLUME 77 fL (80-99); MEAN PLATELET VOLUME 9.2 fL (9.0-12.2); MONOCYTES # (AUTO) 0.5 10^3/uL (0.0-1.0); MONOCYTES % (AUTO) 6 % (0-12); NEUTROPHILS # (AUTO) 7.5 10^3/uL (1.8-7.8); NEUTROPHILS % (AUTO) 87 % (42-75); PLATELET COUNT 213 10^3/uL (130-400); WHITE BLOOD COUNT 8.7 10^3/uL (4.3-11.0)
[2021-06-28 09:59] LABS: BILIRUBIN,TOTAL 1.1 MG/DL (0.1-1.0); CALCIUM 8.2 MG/DL (8.5-10.1); CREATININE SERUM 0.61 MG/DL (0.60-1.30); MAGNESIUM 1.5 MG/DL (1.6-2.4); POTASSIUM 3.5 MMOL/L (3.6-5.0); TOTAL PROTEIN 5.8 GM/DL (6.4-8.2)
[~2021-07-07 08:36] MED LIST changes: +ACHD5005 PO; +IPRA3AMP31 INH; +MONT-40 PO; +NF-NACL1GT PO; +NS IV 1000 ML (CANCER CTR) 1,000 ML ONE; +ZOLP5TAB7 PO
[2021-07-14] MEDS ORDERED: FLUT16SP22 NSEACH (11:47)
[2021-07-14] MEDS ORDERED: RT-ALBUINH INH (11:47)
[2021-07-14] MEDS ORDERED: CETI10TA17 PO (11:47)
[2021-07-14] MEDS ORDERED: IPRA3AMP31 IH (11:47)
[2021-07-14] MEDS ORDERED: CYCL10TA25 PO (11:47)
[2021-07-14] MEDS ORDERED: LISI10TA25 PO (11:47)
[2021-07-14] MEDS ORDERED: ACHD5005 PO (11:47)
[2021-07-14] MEDS ORDERED: GUAI100L13 PO (11:47)
[2021-07-14] MEDS ORDERED: SENN-234 PO (11:47)
[2021-07-17] MEDS ORDERED: FURO40TA4 PO (13:05)
[2021-07-17] MEDS ORDERED: PRD50T PO (13:05)
[2021-07-17] MEDS ORDERED: LEVO750T39 PO (13:05)
== END 2021-07-17 | disposition home or self-care (01) ==
LOC: ONC 08:36
PROVIDERS: ATTEND Internal Medicine Hematology & Oncology
DX: Z51.11 Encounter for antineoplastic chemotherapy (principal); C34.90 Malignant neoplasm of unspecified part of unspecified bronchus or lung; C79.31 Secondary malignant neoplasm of brain; I87.1 Compression of vein
CPT/HCPCS: 77336; 80053; 83735; 85025; 96367; 96375; 96413; 96417

== ENCOUNTER 2021-07-14 02:32 | Inpatient (IN) | payer MEDICARE, MEDICAID ==
[~2021-07-14] VITALS: Ht 177.8 cm; Wt 95.5 kg
[~2021-07-14 02:32] MED LIST changes: -NS IV 1000 ML (CANCER CTR) 1,000 ML ONE
[2021-07-14] MEDS ORDERED: RT-ALBUTEROL SULF 2.5 MG/3 ML PRE-MIX VIAL ONE (02:48)
[2021-07-14 02:53] VITALS: BP 115/84
[2021-07-14 03:01] LABS: BASOPHILS # (AUTO) 0.1 10^3/uL (0.0-0.1); BASOPHILS % (AUTO) 1 % (0-10); EOSINOPHILS % (AUTO) 0 % (0-10); HEMATOCRIT 30 % (40-54); HEMOGLOBIN 10.1 g/dL (13.3-17.7); LYMPHOCYTES # (AUTO) 0.3 10^3/uL (1.0-4.0); LYMPHOCYTES % (AUTO) 3 % (12-44); MEAN CORPUSCULAR HEMOGLOBIN 28 pg (25-34); MEAN CORPUSCULAR HGB CONC 34 g/dL (32-36); MEAN CORPUSCULAR VOLUME 83 fL (80-99); MEAN PLATELET VOLUME 8.6 fL (9.0-12.2); MONOCYTES # (AUTO) 0.7 10^3/uL (0.0-1.0); MONOCYTES % (AUTO) 7 % (0-12); NEUTROPHILS # (AUTO) 8.7 10^3/uL (1.8-7.8); NEUTROPHILS % (AUTO) 88 % (42-75); PLATELET COUNT 231 10^3/uL (130-400); WHITE BLOOD COUNT 9.9 10^3/uL (4.3-11.0)
[2021-07-14 03:10] LABS: BILIRUBIN,URINE 1+ (NEGATIVE); CLARITY,URINE CLOUDY; COLOR,URINE YELLOW; GLUCOSE, URINE (UA) NEGATIVE (NEGATIVE); KETONES,URINE TRACE (NEGATIVE); LEUKOCYTE ESTERASE ,URINE 2+ (NEGATIVE); NITRITE,URINE POSITIVE (NEGATIVE); PH,URINE 6.5 (5-9); PROTEIN,URINE 2+ (NEGATIVE)
[2021-07-14 03:11] LABS: ABG BASE EXCESS 2.1 MMOL/L (-2.5-2.5); ABG OXYGEN SATURATION 79 % (94-100); ABG PCO2 37 MMHG (35-45); ABG PH 7.46 (7.37-7.43); ABG PO2 45 MMHG (79-93); ABG TCO2 26.7 MMOL/L (21.0-31.0)
[2021-07-14 03:12] LABS: ALBUMIN 2.9 GM/DL (3.2-4.5); ALLENS TEST YES-POS; INSPIRED O2 21%; PATIENT TEMP 37.1; POTASSIUM 3.5 MMOL/L (3.6-5.0); VENTILATOR NO
[2021-07-14 03:13] LABS: CALCIUM 8.3 MG/DL (8.5-10.1); PROTHROMBIN TIME PATIENT 13.7 SEC (12.2-14.7)
[2021-07-14 03:15] LABS: TOTAL PROTEIN 6.1 GM/DL (6.4-8.2)
[2021-07-14 03:18] LABS: CREATININE SERUM 0.84 MG/DL (0.60-1.30)
[2021-07-14 03:50] LABS: BACTERIA,URINE LARGE /HPF; RBC,URINE TNTC /HPF; WBC,URINE TNTC /HPF
[2021-07-14] MEDS ORDERED: MEROPENEM 1,000 MG in NS (IVPB) 100 ML IV ONE (04:15)
[2021-07-14] MEDS ORDERED: methylPREDNISolone 125 MG (Solu-MEDROL) VIAL IVP ONE (04:15)
[2021-07-14 05:10] LABS: BAND NEUTROPHILS 3 %; LYMPHOCYTES % (MANUAL) 1 %; MICROCYTOSIS SLIGHT; MONOCYTES % (MANUAL) 4 %; NEUTROPHILS % (MANUAL) 92 %; TOXIC GRANULATION/VACUOLAZATIO 1+
--- NOTE | 2021-07-14 05:40 | Diagnostic Imaging Report ---
PROCEDURE: CT angiography of the chest with contrast. TECHNIQUE: Multiple contiguous axial images were obtained through the chest after uneventful bolus administration of intravenous contrast. 3D reconstructed CTA MIP acquisitions were also performed. Auto Exposure Controls were utilized during the CT exam to meet ALARA standards for radiation dose reduction. INDICATION: Chest pain, right lung mass There is a 3.3 x 4.2 cm mass in the right apex. This has relatively smooth margins and extends centrally to the mediastinum. There are enlarged mediastinal lymph nodes. The largest in the right paratracheal space measures 3.2 cm in diameter. Largest of left AP window measures 4.1 cm in long axis. There is a right pleural effusion layering out to depths of 2.5 cm. There is a left pleural effusion layering out to depths of 1 cm. There are no infiltrates. There is no pneumothorax. There are no pulmonary emboli. IMPRESSION: Large right upper lobe mass with mediastinal lymphadenopathy and bilateral pleural effusions. Appearance is highly suspicious for lung carcinoma. Dictated by: Dictated on workstation # [id number]
[2021-07-14] MEDS ORDERED: NS 100 ML (IVPB) BAG IV ONE (05:45)
[2021-07-14] MEDS ORDERED: HOLD METFORMIN - RECEIVED CONTRAST 20 ML VIAL IV SCH (05:45)
[2021-07-14] MEDS ORDERED: CATHETER FLUSH 10 ML SYR IV PRN (05:45)
[2021-07-14] MEDS ORDERED: IOHEXOL 350 MG/ML 100 ML (OMNIPAQUE 350) VIAL IV ONE (05:45)
--- NOTE | 2021-07-14 05:47 | ED General ---
General Chief Complaint: Respiratory Problems Stated Complaint: SOB Nursing Triage Note: Pt arrives via EMS from [facility] for c/o SOB; onset tonight. Per EMS they were informed by nursing staff that pt's O2 84% on room air. Source of Information: Patient, EMS, Prison Records, Old Records Exam Limitations: No Limitations History of Present Illness Date Seen by Provider: Jul 14, 2021 Time Seen by Provider: 02:33 Initial Comments This is 61-year-old gentleman presents to the emergency room via EMS from [facility] with complaints of shortness of breath. He was hypoxic with oxygen saturation of 84% on room air at the senior care. Respiratory status improved with oxygen saturation in the 90s on a high flow mask applied by EMS. 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 He reports he is no longer receiving any cancer therapy. He is afebrile. He is in mild respiratory distress. I discussed CODE STATUS with him prior to applying BiPAP. He stated a desire for DNR despite the full code noted on his senior care paperwork. By my judgment he seemed to understand the conversation and was able to make a reasonable decision at the time the DNR request was made. BiPAP was applied and patient's respiratory status improved. Allergies and Home Medications Allergies Coded Allergies: Penicillins (Verified Allergy, Unknown, 06/25/14) melatonin (Verified Allergy, Unknown, 06/11/21) penicillin (Unverified Allergy, Unknown, 01/03/15) Patient Home Medication List Home Medication List Reviewed: Yes Amlodipine Besylate (Amlodipine Besylate) 5 Mg Tablet, 5 MG PO DAILY Prescribed by: JESSICA GALVEZ on 07/04/21 1421 Budesonide/Formoterol Fumarate (Symbicort 80-4.5 Mcg Inhaler) 10.2 Gm Hfa.aer.ad, 1-2 PUFF INH DAILY PRN for SHORTNESS OF BREATH, (Reported) Entered as Reported by: ALEXANDRA CAMPOS on 06/19/21 09 Diphenhydramine HCl (Sleep Aid) 50 Mg/30 Ml Liquid, 50 MG PO HS PRN for SLEEP, (Reported) Entered as Reported by: ALEXANDRA CAMPOS on 06/19/21 09 Famotidine (Famotidine) 20 Mg Tablet, 20 MG PO BID Prescribed by: JESSICA GALVEZ on 07/04/211420 Furosemide (Furosemide) 20 Mg Tablet, 20 MG PO DAILY PRN for SHORTNESS OF BREATH/EDEMA, (Reported) Entered as Reported by: ALEXANDRA CAMPOS on 06/19/21 0943 Hydrocodone Bit/Acetaminophen (HYDROcodone/APAP 5 MG/325 MG TAB) 1 Tab Tab, 1 EA PO Q6HR PRN for PAIN-MODERATE (5-7) Prescribed by: JESSICA GALVEZ on 07/04/21 142 Ipratropium/Albuterol Sulfate (Iprat-Albut 0.5-3(2.5) mg/3 ml) 3 Ml Ampul.neb, 3 ML INH RTQ4HR Prescribed by: JESSICA GALVEZ on 07/04/211420 Montelukast Sodium (Montelukast Sodium) 10 Mg Tablet, 10 MG PO HS Prescribed by: JESSICA GALVEZ on 07/04/21 142 Prednisone (Prednisone) 10 Mg Tab.ds.pk, 20 MG PO DAILY Prescribed by: JESSICA GALVEZ on 07/04/211420 Sodium Chloride (Sodium Chloride) 1 Gm Tab, 2 GM PO TID Prescribed by: JESSICA GALVEZ on 07/04/21 142 Zolpidem Tartrate (Zolpidem Tartrate) 5 Mg Tablet, 5 MG PO HS Prescribed by: JESSICA GALVEZ on 07/04/211420 Review of Systems Review of Systems Constitutional: no symptoms reported EENTM: no symptoms reported Respiratory: see HPI Cardiovascular: no symptoms reported Gastrointestinal: no symptoms reported Genitourinary: no symptoms reported Musculoskeletal: no symptoms reported Skin: no symptoms reported Psychiatric/Neurological: No Symptoms Reported Hematologic/Lymphatic: See HPI Immunological/Allergic: no symptoms reported Past Pvkapvu-Teclgu-Iqobwq Hx Patient Social History Tobacco Use?: No Use of E-Cig and/or Vaping dev: No Substance use?: No Alcohol Use?: No Pt feels they are or have been: No Immunizations Up To Date Tetanus Booster (TDap): Unknown First/Initial COVID19 Vaccinat: 2020 Second COVID19 Vaccination Alexey: 2020 Third COVID19 Vaccination Date: 2020 Past Medical History Surgery/Hospitalization HX: HTN, COPD, HERNIA REPAIR, RIGHT LUNG MASS, CT guided lung biopsy 1/28/21 Surgeries: Yes Abdominal, Eye Surgery Respiratory: Yes COPD, Emphysema Cardiac: Yes (Vena Cava Syndrome) Hypertension Neurological: Yes (brain mets) Paralysis Genitourinary: No Gastrointestinal: Yes Abdominal Hernia Musculoskeletal: Yes (spinal metastasis) Endocrine: No HEENT: Yes Cataract Loss of Vision: Denies Hearing Impairment: Denies Cancer: Yes Lung Did You Recieve Any Treatments: No Psychosocial: Yes Sleep Difficulties Integumentary: No Blood Disorders: No Family Medical History Heart Disease, Cancer, Diabetes SOCIAL HISTORY: -SMOKES 1 06/18 PPD -ETOH--"30 PACK EVERY 3 DAYS" -DRUGS--DENIES USE Physical Exam-Suspected Sepsis Physical Exam Vital Signs Vital Signs - First Documented 07/14/21 07/14/21 02:33 02:53 Temp 37.2 Pulse 137 Resp 20 B/P (MAP) 107/78 (88) Pulse Ox 84 O2 Delivery Room Air O2 Flow Rate 21.00 Capillary Refill : Blood Pressure Mean: 88 Height, Weight, BMI Height: 6'0" Weight: 169lbs. oz. 76.032683sc; 29.61 BMI Method:Stated General Appearance: WD/WN, Moderate Distress (Respiratory) HEENT: PERRL/EOMI, Normal ENT Inspection Neck: Normal Inspection; No JVD Respiratory: Accessory Muscle Use; No Crackles; Respiratory Distress, Wheezing Cardiovascular: Regular Rate, Rhythm, No Murmur, Tachycardia, Other (Generalized edema/anasarca) Gastrointestinal: Non Tender, Soft; No Distended Extremity: Non Tender, Swelling (Anasarca) Neurologic/Psychiatric: Alert, No Motor/Sensory Deficits, Normal Mood/Affect Skin: normal color, warm/dry, other (Multiple weeping skin wounds on the extremities) Focused Exam Lactate Level 07/14/21 02:40: Lactic Acid Level 2.33*H 07/14/21 05:48: Lactic Acid Level Laboratory Tests Test 07/14/21 02:40 07/14/21 05:48 Lactic Acid Level 2.33 MMOL/L (0.50-2.00) *H Progress/Results/Core Measures Suspected Sepsis SIRS Temperature: Pulse: 138 Respiratory Rate: 20 Laboratory Tests 07/14/21 02:40: White Blood Count 9.9 Blood Pressure 115 /84 Mean: 88 07/14/21 02:40: Lactic Acid Level 2.33*H 07/14/21 05:48: Laboratory Tests 07/14/21 02:40: Creatinine 0.84, INR Comment 1.0, Platelet Count 231, Total Bilirubin 1.0 Results/Orders Lab Results Laboratory Tests Test 07/14/21 02:40 07/14/21 05:48 Range/Units White Blood Count 9.9 4.3-11.0 10^3/uL Red Blood Count 3.62 L 4.30-5.52 10^6/uL Hemoglobin 10.1 L 13.3-17.7 g/dL Hematocrit 30 L 40-54 % Mean Corpuscular Volume 83 80-99 fL Mean Corpuscular Hemoglobin 28 25-34 pg Mean Corpuscular Hemoglobin Concent 34 32-36 g/dL Red Cell Distribution Width 18.9 H 10.0-14.5 % Platelet Count 231 130-400 10^3/uL Mean Platelet Volume 8.6 L 9.0-12.2 fL Immature Granulocyte % (Auto) 2 % Neutrophils (%) (Auto) 88 H 42-75 % Lymphocytes (%) (Auto) 3 L 12-44 % Monocytes (%) (Auto) 7 0-12 % Eosinophils (%) (Auto) 0 0-10 % Basophils (%) (Auto) 1 0-10 % Neutrophils # (Auto) 8.7 H 1.8-7.8 10^3/uL Lymphocytes # (Auto) 0.3 L 1.0-4.0 10^3/uL Monocytes # (Auto) 0.7 0.0-1.0 10^3/uL Eosinophils # (Auto) 0.0 0.0-0.3 10^3/uL Basophils # (Auto) 0.1 0.0-0.1 10^3/uL Immature Granulocyte # (Auto) 0.2 H 0.0-0.1 10^3/uL Neutrophils % (Manual) 92 % Lymphocytes % (Manual) 1 % Monocytes % (Manual) 4 % Band Neutrophils 3 % Toxic Granulation 1+ Microcytosis SLIGHT Prothrombin Time 13.7 12.2-14.7 SEC INR Comment 1.0 0.8-1.4 Activated Partial Thromboplast Time 28 24-35 SEC D-Dimer 3.09 H 0.00-0.49 UG/ML Urine Color YELLOW Urine Clarity CLOUDY Urine pH 6.5 5-9 Urine Specific [place] 1.020 1.016-1.022 Urine Protein 2+ H NEGATIVE Urine Glucose (UA) NEGATIVE NEGATIVE Urine Ketones TRACE H NEGATIVE Urine Nitrite POSITIVE H NEGATIVE Urine Bilirubin 1+ H NEGATIVE Urine Urobilinogen 1.0 < = 1.0 MG/DL Urine Leukocyte Esterase 2+ H NEGATIVE Urine RBC (Auto) 3+ H NEGATIVE Urine RBC TNTC H /HPF Urine WBC TNTC H /HPF Urine Crystals NONE /LPF Urine Bacteria LARGE H /HPF Urine Casts NONE /LPF Urine Mucus NEGATIVE /LPF Urine Culture Indicated CULTURE PENDING Blood Gas Puncture Site LRAD Blood Gas Patient Temperature 37.1 Arterial Blood pH 7.46 H 7.37-7.43 Arterial Blood Partial Pressure CO2 37 35-45 MMHG Arterial Blood Partial Pressure O2 45 L 79-93 MMHG Arterial Blood HCO3 26 23-27 MMOL/L Arterial Blood Total CO2 26.7 21.0-31.0 MMOL/L Arterial Blood Oxygen Saturation 79 L 94-100 % Arterial Blood Base Excess 2.1 -2.5-2.5 MMOL/L Marcello Test YES-POS Blood Gas Ventilator Setting NO Blood Gas Inspired Oxygen 21% Sodium Level 130 L 135-145 MMOL/L Potassium Level 3.5 L 3.6-5.0 MMOL/L Chloride Level 95 L 98-107 MMOL/L Carbon Dioxide Level 22 21-32 MMOL/L Anion Gap 13 5-14 MMOL/L Blood Urea Nitrogen 7 7-18 MG/DL Creatinine 0.84 0.60-1.30 MG/DL Estimat Glomerular Filtration Rate 99 BUN/Creatinine Ratio 8 Glucose Level 129 H 70-105 MG/DL Lactic Acid Level 2.33 *H 0.50-2.00 MMOL/L Calcium Level 8.3 L 8.5-10.1 MG/DL Corrected Calcium 9.2 8.5-10.1 MG/DL Total Bilirubin 1.0 0.1-1.0 MG/DL Aspartate Amino Transf (AST/SGOT) 19 5-34 U/L Alanine Aminotransferase (ALT/SGPT) 31 0-55 U/L Alkaline Phosphatase 58 40-136 U/L C-Reactive Protein High Sensitivity 5.73 H 0.00-0.50 MG/DL B-Type Natriuretic Peptide 32.5 <100.0 PG/ML Total Protein 6.1 L 6.4-8.2 GM/DL Albumin 2.9 L 3.2-4.5 GM/DL Procalcitonin 0.09 <0.10 NG/ML Influenza Type A Antigen NEGATIVE NEGATIVE Influenza Type B Antigen NEGATIVE NEGATIVE SARS-CoV-2 RNA (RT-PCR) Not Detected Negative My Orders Orders - ROSIE KHAN MD Cbc With Automated Diff (07/14/21 02:45) Comprehensive Metabolic Panel (07/14/21 02:45) Blood Culture (07/14/21 02:45) Sputum Culture (07/14/21 02:45) Urinalysis (07/14/21 02:45) Urine Culture (07/14/21 02:45) Protime With Inr (07/14/21 02:45) Partial Thromboplastin Time (07/14/21 02:45) Chest 1 View, Ap/Pa Only (07/14/21 02:45) Ed Iv/Invasive Line Start (07/14/21 02:45) Ed Iv/Invasive Line Start (07/14/21 02:45) Vital Signs Adult Sepsis Patie Q15M (07/14/21 02:45) O2 (07/14/21 02:45) Remove Rings In Anticipation O (07/14/21 02:45) Lactic Acid Analyzer (07/14/21 02:45) Procalcitonin (Pct) (07/14/21 02:45) Hs C Reactive Protein (07/14/21 02:45) Covid 19 Inhouse Test (07/14/21 02:45) Influenza A & B Antigens (07/14/21 02:45) Albuterol Pre-Mix Nebs (Rt) (Proventil (07/14/21 02:48) Arterial Blood Gas (07/14/21 02:57) Manual Differential (07/14/21 02:40) Coronavirus Sars-Cov-2 So 2019 (07/14/21 02:40) Bnp Home (07/14/21 03:51) Fibrin Degradation Products (07/14/21 03:51) Methylprednisolone Sod Succ (Solu-Medrol (07/14/21 04:15) Meropenem (Merrem 1000 Mg) (07/14/21 04:15) Ct Angio Chest W (07/14/21 04:14) Iohexol Injection (Omnipaque 350 Mg/Ml 1 (07/14/21 05:45) Received Contrast (Hold Metformin- Contr (07/14/21 05:45) Sodium Chloride Flush (Catheter Flush Sy (07/14/21 05:45) Ns (Ivpb) (Sodium Chloride 0.9% Ivpb Bag (07/14/21 05:45) Vancomycin Injection (Vancomycin Injecti (07/14/21 06:00) Vancomycin Injection (Vancomycin Injecti (07/14/21 07:00) Code/Resuscitation (07/14/21 05:54) Medications Given in ED Current Medications Medications Dose Ordered Sig/Milo Route Start Time Stop Time Status Last Admin Dose Admin Albuterol Sulfate 2.5 mg STK-MED ONCE .ROUTE 07/14/21 02:48 07/14/21 02:51 DC 07/14/21 02:52 2.5 MG Iohexol 100 ml ONCE ONCE IV 07/14/21 05:45 07/14/21 05:46 DC 07/14/21 05:45 85 ML Meropenem 1000 mg/ Sodium Chloride 100 ml @ 200 mls/hr ONCE ONCE IV 07/14/21 04:15 07/14/21 04:44 DC 07/14/21 04:35 200 MLS/HR Methylprednisolone Sodium Succinate 125 mg ONCE ONCE IVP 07/14/21 04:15 07/14/21 04:16 DC 07/14/21 04:35 125 MG Sodium Chloride 10 ml NEEDED PRN IV 07/14/21 05:45 07/14/21 05:45 10 ML Sodium Chloride 100 ml ONCE ONCE IV 07/14/21 05:45 07/14/21 05:46 DC 07/14/21 05:45 80 ML Vital Signs/I&O 07/14/21 07/14/21 02:33 02:53 Temp 37.2 Pulse 137 138 Resp 20 B/P (MAP) 107/78 (88) Pulse Ox 84 96 O2 Delivery Room Air O2 Flow Rate 21.00 Capillary Refill : Blood Pressure Mean: 88 Progress Note : Progress Note Patient had a significant urinary tract infection. Due to his recent hospitalization and penicillin allergy, broad-spectrum therapy with meropenem was ordered. No other source of infection was identified. He was started on a BiPAP and received albuterol treatment in line with the BiPAP. Solu-Medrol was also administered. No pneumonia was identified. Right upper lung mass persists. D-dimer was elevated and CT angiogram was obtained. No pulmonary emboli were identified. Case was reviewed with Dr. Galvez who requested vancomycin also be added to the antibiotic coverage. ECG Initial ECG Impression Date: Jul 14, 2021 Initial ECG Impression Time: 02:38 Initial ECG Rate: 146 Initial ECG Rhythm: S.Tach Comment Sinus tachycardia with no ST elevation or depression. No abnormal intervals or axis deviation Diagnostic Imaging Diagonstic Imaging: CT Plain Films/CT/US/NM/MRI: chest Comments CT angiogram chest viewed by me and report reviewed. See report below: NAME: GULSHAN LEACH [facility] REC#: [id number] PT STATUS: REG ER : 1960 PHYSICIAN: ROSIE KHAN MD ADMIT DATE: 07/14/21/ER Signed Date of Exam:07/14/21 CT ANGIO CHEST W PROCEDURE: CT angiography of the chest with contrast. TECHNIQUE: Multiple contiguous axial images were obtained through the chest after uneventful bolus administration of intravenous contrast. 3D reconstructed CTA MIP acquisitions were also performed. Auto Exposure Controls were utilized during the CT exam to meet ALARA standards for radiation dose reduction. INDICATION: Chest pain, right lung mass There is a 3.3 x 4.2 cm mass in the right apex. This has relatively smooth margins and extends centrally to the mediastinum. There are enlarged mediastinal lymph nodes. The largest in the right paratracheal space measures 3.2 cm in diameter. Largest of left AP window measures 4.1 cm in long axis. There is a right pleural effusion layering out to depths of 2.5 cm. There is a left pleural effusion layering out to depths of 1 cm. There are no infiltrates. There is no pneumothorax. There are no pulmonary emboli. IMPRESSION: Large right upper lobe mass with mediastinal lymphadenopathy and bilateral pleural effusions. Appearance is highly suspicious for lung carcinoma. Dictated by: Dictated on workstation # [id number] Dict: 07/14/21 0535 Trans: 07/14/21537 TC [id number] Interpreted by: SHERLEY SAMPSON MD Electronically signed by: SHERLEY SAMPSON MD 07/14/2138 Departure Communication (Admissions) Time/Spoke to Admitting Phy: 05:44 Dr. Galvez Impression Primary Impression: Respiratory failure Qualified Codes: J96.01 - Acute respiratory failure with hypoxia Additional Impressions: COPD exacerbation Urinary tract infection Qualified Codes: N39.0 - Urinary tract infection, site not specified; R31.9 - Hematuria, unspecified Mass of right lung Anasarca Disposition: 09 ADMITTED INPATIENT Condition: Improved Admissions Decision to Admit Reason: Admit from ER (General) Decision to Admit/Date: Jul 14, 2021 Time/Decision to Admit Time: 02:40 Departure-Patient Inst. Ref[place]: [facility] [place] Primary Care Physician PATRICK BENSON APRN (Family) Primary Care Physician ROSIE KHAN MD Jul 14, 2021 05:47
--- NOTE | 2021-07-14 05:48 | History & Physical-Hospitalist ---
History of Present Illness HPI/Chief Complaint CC: SOB HPI: [facility] pt that I just discharged this past week after hyponatremia resolved with salt tablets and radiation treatment. Other chemotherapy was set up with cancer center for lung cancer with widespread metastasis. Who presented to the ER for the long term who was placed on BiPAP due to SOB found to have an exacerbation of COPD. Sodium level was 130. Pt appears to have a very extensive spread of lung cancer and he is DNR. He is requiring Precedex and other sedatives due to terminal restlessness. Pt will be placed on Morphine [employer]. Will be monitored closely due to the end stage process of his life. Source: RN/MD Exam Limitations: clinical condition Date Seen 07/14/21 Time Seen by a Provider: 11:00 Attending Physician [facility] Referring Physician Date of Admission Home Medications & Allergies Home Medications Reviewed patient Home Medication Reconciliation performed by pharmacy medication reconciliations restoration technician and/or nursing. Patients Allergies have been reviewed. Allergies Allergies Coded Allergies Penicillins (Verified Allergy, Unknown, 06/25/14) melatonin (Verified Allergy, Unknown, 06/11/21) penicillin (Unverified Allergy, Unknown, 01/03/15) Past Ghcsbtc-Bfycqm-Ylwmqe Hx Patient Social History Marrital Status: single Employed/Student: unemployed Tobacco Use?: No Smoking Status: Current Everyday Smoker Use of E-Cig and/or Vaping dev: No Substance use?: No Alcohol Use?: No Pt feels they are or have been: No Immunizations Up To Date Date of Influenza Vaccine: Feb 16, 2021 First/Initial COVID19 Vaccinat: 2020 Second COVID19 Vaccination Alexey: 2020 Tetanus Booster (TDap): Unknown Current Status Advance Directives: No Communicates: Verbally Primary Language: Peruvian Preferred Spoken Language: Peruvian Is interpretation needed?: No Past Medical History Surgeries: Abdominal, Eye Surgery COPD, Emphysema Hypertension Paralysis Abdominal Hernia Cataract Loss of Vision: Denies Hearing Impairment: Denies Lung Did You Recieve Any Treatments: No Sleep Difficulties Blood Disorders: No Family Medical History Heart Disease, Cancer, Diabetes SOCIAL HISTORY: -SMOKES 1 06/18 PPD -ETOH--"30 PACK EVERY 3 DAYS" -DRUGS--DENIES USE Review of Systems ROS-Unable to Obtain: confused Constitutional: see HPI Physical Exam Physical Exam Vital Signs Vital Signs - First Documented 07/14/21 07/14/2107/14/22 02:33 02:53 08:05 Temp 37.2 Pulse 137 Resp 20 B/P (MAP) 107/78 (88) Pulse Ox 84 O2 Delivery Room Air O2 Flow Rate 21.00 FiO2 21 Capillary Refill : Height, Weight, BMI Height: 6'0" Weight: 169lbs. oz. 76.024906wy; 29.61 BMI Method:Stated General Appearance: Anxious, Chronically ill, Mild Distress Neck: Full Range of Motion Respiratory: No Respiratory Distress, Accessory Muscle Use, Decreased Breath Sounds Cardiovascular: Regular Rate, Rhythm Neurologic/Psychiatric: Alert, Disoriented Results Results/Procedures Labs Laboratory Tests 07/14/21 02:40 07/15/21 04:30 Patient resulted labs reviewed. 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
[2021-07-14] MEDS ORDERED: VANCOMYCIN INJECTION 1,000 MG in NS (IVPB) 250 ML IV ONE (06:00)
--- NOTE | 2021-07-14 06:58 | Diagnostic Imaging Report ---
INDICATION: Right lung mass, shortness of breath. Portable chest 3:14 AM There is large mass of the right apex. This is not appreciably changed from comparison exam dated 06/29/2021. There are no infiltrates, effusions or pneumothoraces. Heart size and pulmonary vascularity are normal. IMPRESSION: Right upper lung mass unchanged from prior exam. Dictated by: Dictated on workstation # [id number]
[2021-07-14] MEDS ORDERED: VANCOMYCIN INJECTION 750 MG in NS (IVPB) 250 ML IV ONE (07:00)
[2021-07-14] MEDS ORDERED: LACTULOSE SYRUP 10GM/15ML (ENULOSE) 30ML UDC PO PRN (07:30)
[2021-07-14] MEDS ORDERED: diphenhydrAMINE 50 MG/ML INJ (BENADRYL) IVP PRN (07:30)
[2021-07-14] MEDS ORDERED: diphenhydrAMINE 25 MG TAB (BENADRYL) PO PRN (07:30)
[2021-07-14] MEDS ORDERED: BISACODYL 10 MG SUPP (DULCOLAX) PR PRN (07:30)
[2021-07-14] MEDS ORDERED: ONDANSETRON 4 MG/2 ML (SDV) Z0FRAN IV PRN (07:30)
[2021-07-14] MEDS ORDERED: CALCIUM CARBONATE 500 MG (TUMS) TAB.CHEW PO PRN (07:30)
[2021-07-14] MEDS ORDERED: polyethylene glycoL POWDER 17 GM (MIRALAX) PACK PO PRN (07:30)
[2021-07-14] MEDS ORDERED: MILK OF MAGNESIA 400 MG/5 ML 30 ML UDC PO PRN (07:30)
[2021-07-14] MEDS ORDERED: ALPRAZolam 0.5 MG (XANAX) TAB PO PRN (07:30)
[2021-07-14] MEDS ORDERED: MELATONIN 3 MG TABLET PO PRN (07:30)
[2021-07-14] MEDS ORDERED: morphine INJ 4 MG/ML 1 ML (VIAL/SYRINGE) IV PRN (07:30)
[2021-07-14] MEDS ORDERED: ACETAMINOPHEN 325 MG TABLET PO PRN (07:30)
[2021-07-14] MEDS ORDERED: ANTACID SUSP 30 ML UDC (MYLANTA) PO PRN (07:30)
[2021-07-14] MEDS ORDERED: ONDANSETRON 4 MG (ZOFRAN) ORAL DISSOLVE TAB PO PRN (07:30)
[2021-07-14] MEDS ORDERED: NS IV 1000 ML 1,000 ML IV SCH ×2 (07:30→10:56)
[2021-07-14 08:05] VITALS: BP 107/78
[2021-07-14] MEDS: ENOXAPARIN 40 MG/0.4 ML (LOVENOX) SYR SC SCH (08:14)
[2021-07-14] MEDS ORDERED: DexMEDEtomidine 250 ML DRIP 250 ML IV ONE (09:34)
[2021-07-14] MEDS: DexMEDEtomidine 250 ML DRIP 250 ML IV SCH ×2 (10:11→18:14)
[2021-07-14] MEDS ORDERED: VANCOMYCIN 750 MG/VIAL IV ONE ×2 (10:24)
[2021-07-14] MEDS ORDERED: NS (IVPB) 250 ML ONE (10:24)
[2021-07-14] MEDS: DOCUSATE SODIUM 100 MG (COLACE) CAP PO SCH ×2 (10:40→20:17)
[2021-07-14] MEDS: SENNOSIDES 8.6 MG (SENOKOT) TAB PO SCH ×2 (10:40→20:17)
[2021-07-14] MEDS ORDERED: morphine PCA 100 MG/100 ML BAG IV PRN (11:00)
[2021-07-14 11:12] VITALS: BP 107/88
[2021-07-14] MEDS ORDERED: RT-ALBUINH INH (11:47)
[2021-07-14] MEDS ORDERED: CYCL10TA25 PO (11:47)
[2021-07-14] MEDS ORDERED: CETI10TA17 PO (11:47)
[2021-07-14] MEDS ORDERED: LISI10TA25 PO (11:47)
[2021-07-14] MEDS ORDERED: SENN-234 PO (11:47)
[2021-07-14] MEDS ORDERED: GUAI100L13 PO (11:47)
[2021-07-14] MEDS ORDERED: IPRA3AMP31 IH (11:47)
[2021-07-14] MEDS ORDERED: ACHD5005 PO (11:47)
[2021-07-14] MEDS ORDERED: FLUT16SP22 NSEACH (11:47)
--- NOTE | 2021-07-14 11:52 | Tele-ICU Consult ---
History of Present Illness History of Present Illness Date Seen by Provider: Jul 14, 2021 Time Seen by Provider: 09:26 Date of Admission Allergies and Home Medications Allergies Coded Allergies: Penicillins (Verified Allergy, Unknown, 06/25/14) melatonin (Verified Allergy, Unknown, 06/11/21) penicillin (Unverified Allergy, Unknown, 01/03/15) Home Medications Albuterol Sulfate 1 Puff Puff, 2 PUFF INH Q6H PRN for SHORTNESS OF BREATH, (Reported) Cetirizine HCl 10 Mg Tablet, 10 MG PO DAILY, (Reported) Cyclobenzaprine HCl 10 Mg Tablet, 10 MG PO Q12H PRN for SPASMS, (Reported) Fluticasone Propionate 16 Gm [place].susp, 1 SPRAY NSEACH BID, (Reported) Guaifenesin 100 Mg/5 Ml Liquid, 10 ML PO Q4H PRN for COUGH, (Reported) Hydrocodone/Acetaminophen 1 Each Tablet, 1 EA PO Q8H PRN for PAIN-MODERATE (5- 7), (Reported) Ipratropium/Albuterol Sulfate 3 Ml Ampul.neb, 3 ML IH Q6H PRN for SHORTNESS OF BREATH, (Reported) Lisinopril 10 Mg Tablet, 10 MG PO DAILY, (Reported) HOLD FOR SBP <100 OR PULSE <60- NOTIFY PCP IF HELD FOR 3 CONSECUTIVE DAYS Sennosides 8.6 Mg Tablet, 8.6 MG PO DAILY PRN for CONSTIPATION-5TH LINE, (Reported) Past Medical/Social/Family Hx Patient Social History Tobacco Use?: No Use of E-Cig and/or Vaping dev: No Substance use?: No Alcohol Use?: No Pt stated abuse/neglect: No Immunizations Up To Date Influenza Vaccine Up-to-Date: Yes; Up-to-Date First/Initial COVID19 Vaccinat: 2020 Second COVID19 Vaccination Alexey: 2020 Tetanus Booster (TDap): Unknown Current Status Advance Directives: No Communicates: Verbally Primary Language: Tunisian Preferred Spoken Language: Tunisian Is interpretation needed?: No Family Medical History Family Hx: SOCIAL HISTORY: -SMOKES 1 06/18 PPD -ETOH--"30 PACK EVERY 3 DAYS" -DRUGS--DENIES USE Review of Systems Constitutional: see HPI Focused Exam Lactate Level 07/14/21 02:40: Lactic Acid Level 2.33*H 07/14/21 05:48: Lactic Acid Level 1.08 Height, Weight, BMI Height: 6'0" Weight: 169lbs. oz. 76.173626hg; 24.23 BMI Method:Stated Exam Exam Patient acknowledged, consented, and participated in this virtual visit which was conducted using real time audio/video Vital Signs Date Time Temp Pulse Resp B/P (MAP) Pulse Ox O2 Delivery O2 Flow Rate FiO2 07/14/21 11:12 114 100 25.00 07/14/21 11:00 111 22 107/88 98 NIV Bilevel 25.00 07/14/21 10:11 120 142/100 07/14/21 10:00 118 32 98/71 Non Rebreather 15.00 07/14/21 09:00 118 34 155/109 99 NIV Bilevel 21.00 07/14/21 08:05 37.2 137 96 21 07/14/21 08:00 116 29 117/75 100 NIV Bilevel 21.00 07/14/21 07:41 123 07/14/21 07:00 115 31 172/138 100 NIV Bilevel 21.00 07/14/21 02:53 138 96 21.00 07/14/21 02:33 37.2 137 20 107/78 (88) 84 Room Air Height & Weight Height: 6'0" Weight: 169lbs. oz. 76.033090ye; 24.23 BMI Method:Stated General Appearance: WD/WN, Mild Distress, Moderate Distress (Respiratory) HEENT: PERRL/EOMI, Normal ENT Inspection Neck: Normal Inspection; No JVD Respiratory: Accessory Muscle Use; No Crackles; Respiratory Distress, Wheezing Cardiovascular: Regular Rate, Rhythm, No Murmur, Tachycardia, Other ( Generalized edema/anasarca) Extremity: Non Tender, Swelling (Anasarca) Neurologic/Psychiatric: Alert, No Motor/Sensory Deficits, Normal Mood/Affect Results Lab Laboratory Tests 07/14/21 02:40 Assessment/Plan Assessment/Plan (Tele-ICU Physician , consultation) Available chart/ vitals / labs / Images reviewed H&P is from ER notes Patient's information available about PMH, Shx, Fhx allergy reviewed in EMR. ROS as per chart and RN report Now in ICU, hemodynamically stable Video assessment done using teleICU camera, rest of exam as per RN Discussed with RN. Consultants: Hospital course: 07/14 61 y M from ER with hypoxia treat/ UTI and PNA, right lung mass and izzy pleural effusions (hx lung CA with mets brain) place on BIPAP A/P Acute resp failure ( no PE on CT 07/14 , do not suspect radiation pneumonitis ) - AECOPD - BIPAP applied in ER - now on NC but labored respitrration - follow closely , start precedex and re-assess AECOPD - steroids IV and nebs started RUL mass- known lung CA- NSCLCA - not on chemo presently, ? radiation had first treatment on 06/20/21 Plural effusions , bilat R>L - not large enought to compromise resp status - follow multiple small brain mets -receiving whole brain radiation Confusion , agitation - start on precedex - reassess, avoid benzo for today - ? need re-scan brain ? - as per bedside MD who knows patientr ( high dose of steroids already in place in case of worsenign edema ) - will repeat abg Recent 2021 RIGHT PTX requiring Thora vent ( after lung bx) UTI - merrem started 07/14 REcent severe hyponatremia due to paraneoplastic syndrome - Na on admission 130 -fluid restriction Elv Ddimer - no PE on CT Lines : right femoral ? 07/14 (Central Line Necessity Reviewed) Galvin: + OG: Nutrition: Analgesia: Anxiety/ delirium precedex VTE Prophylaxis: nicolette 40 Stress Ulcer Prophylaxis: Glycemic Control: Plans in collaboration with bedside consultants and IM MDs. Discussed with RN to reach out if any questions or concerns A total of 35 minutes of critical care time was devoted to this patient today, required to treat and/or prevent further deterioration of critical care condition ( as above ) . DIAZ DAMIAN MD Jul 14, 2021 11:52
[2021-07-14] MEDS ORDERED: LORazepam INJ 2 MG/ML (ATIVAN) VIAL IVP PRN ×2 (12:00→12:15)
[2021-07-14] MEDS ORDERED: WATER (STERILE) FOR INJ 10 ML BTL INJ SCH (12:15)
[2021-07-14] MEDS ORDERED: HALOPERIDOL 5 MG/ML (HALDOL) VIAL IM PRN (12:15)
[2021-07-14] MEDS ORDERED: ZIPRASIDONE 20 MG INJ (GEODON) VIAL IM PRN (12:15)
[2021-07-14 13:19] LABS: ABG BASE EXCESS 4.2 MMOL/L (-2.5-2.5); ABG OXYGEN SATURATION 98 % (94-100); ABG PCO2 41 MMHG (35-45); ABG PH 7.45 (7.37-7.43); ABG PO2 82 MMHG (79-93); ABG TCO2 29.6 MMOL/L (21.0-31.0)
[2021-07-14 13:20] LABS: ALLENS TEST YES-POS; INSPIRED O2 25%; PATIENT TEMP 96.2; VENTILATOR NO
[2021-07-14] MEDS: methylPREDNISolone 125 MG (Solu-MEDROL) VIAL IVP SCH ×3 (14:34→23:10)
[2021-07-14] MEDS: inSUlin ASPART (NovoLOG) 1 UNIT/0.01 ML (CHARGE PER UNIT) SC SCH ×3 (14:35→21:00)
[2021-07-14] MEDS: MEROPENEM 1,000 MG in NS (IVPB) 100 ML IV SCH ×2 (14:36→22:31)
[2021-07-14 15:09] VITALS: BP 99/77
[2021-07-14] MEDS: RT-ALBUTEROL HFA 8.5 GM INHALER IH SCH ×2 (15:09→19:13)
[2021-07-14] MEDS: VANCOMYCIN INJECTION 1,000 MG in NS (IVPB) 250 ML IV SCH (20:09)
[2021-07-15] MEDS: RT-ALBUTEROL HFA 8.5 GM INHALER IH SCH ×7 (02:46→22:15)
[2021-07-15 04:38] LABS: BASOPHILS % (AUTO) 0 % (0-10); EOSINOPHILS % (AUTO) 0 % (0-10); HEMATOCRIT 30 % (40-54); HEMOGLOBIN 10.3 g/dL (13.3-17.7); LYMPHOCYTES # (AUTO) 0.2 10^3/uL (1.0-4.0); LYMPHOCYTES % (AUTO) 4 % (12-44); MEAN CORPUSCULAR HEMOGLOBIN 28 pg (25-34); MEAN CORPUSCULAR HGB CONC 34 g/dL (32-36); MEAN CORPUSCULAR VOLUME 82 fL (80-99); MEAN PLATELET VOLUME 8.9 fL (9.0-12.2); MONOCYTES # (AUTO) 0.2 10^3/uL (0.0-1.0); MONOCYTES % (AUTO) 4 % (0-12); NEUTROPHILS % (AUTO) 92 % (42-75); PLATELET COUNT 244 10^3/uL (130-400); WHITE BLOOD COUNT 5.4 10^3/uL (4.3-11.0)
[2021-07-15 04:45] LABS: ALBUMIN 2.6 GM/DL (3.2-4.5); POTASSIUM 4.3 MMOL/L (3.6-5.0)
[2021-07-15 04:47] LABS: CALCIUM 8.5 MG/DL (8.5-10.1)
[2021-07-15 04:48] LABS: TOTAL PROTEIN 5.7 GM/DL (6.4-8.2)
[2021-07-15 04:50] LABS: BILIRUBIN,TOTAL 0.5 MG/DL (0.1-1.0)
[2021-07-15 04:51] LABS: CREATININE SERUM 0.65 MG/DL (0.60-1.30)
--- NOTE | 2021-07-15 05:40 | Progress Note - Hospitalist ---
Subjective HPI/CC On Admission Date Seen by Provider: Jul 15, 2021 Time Seen by Provider: 11:00 CC: SOB HPI: [facility] pt that I just discharged this past week after hyponatremia resolved with salt tablets and radiation treatment. Other chemotherapy was set up with cancer center for lung cancer with widespread metastasis. Who [facility] who was placed on BiPAP due to SOB found to have an exacerbation of COPD. Sodium level was 130. Pt appears to have a very extensive spread of lung cancer and he is DNR. He is requiring Precedex and other sedatives due to terminal restlessness. 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 Will be monitored closely due to the end stage process of his life. Subjective/Events-last exam Patient improved Confusion resolved Moving to 4th Edema noted Labs stable Review of Systems Pulmonary: Dyspnea Cardiovascular: Edema Focused Exam Lactate Level 07/14/21 02:40: Lactic Acid Level 2.33*H 07/14/21 05:48: Lactic Acid Level 1.08 Objective Exam Vital Signs Vital Signs Date Time Temp Pulse Resp B/P (MAP) Pulse Ox O2 Delivery O2 Flow Rate FiO2 07/16/21 03:32 36.2 120 22 152/89 (110) 97 Room Air 07/15/21 16:07 21 07/15/21 09:00 21.00 Capillary Refill : General Appearance: No Apparent Distress, WD/WN, Chronically ill Respiratory: Lungs Clear, Normal Breath Sounds Cardiovascular: Regular Rate, Rhythm Neurologic/Psychiatric: Alert, Oriented x3 Results/Procedures Lab Laboratory Tests 07/16/21 05:33 Patient resulted labs reviewed. 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
[2021-07-15] MEDS: inSUlin ASPART (NovoLOG) 1 UNIT/0.01 ML (CHARGE PER UNIT) SC SCH ×2 (06:00→11:27)
[2021-07-15] MEDS: MEROPENEM 1,000 MG in NS (IVPB) 100 ML IV SCH ×3 (06:00→23:34)
[2021-07-15] MEDS: methylPREDNISolone 125 MG (Solu-MEDROL) VIAL IVP SCH ×4 (06:00→23:35)
[2021-07-15] MEDS ORDERED: TROUGH ORDER-PHARMACY XX ONE (08:00)
[2021-07-15] MEDS: ENOXAPARIN 40 MG/0.4 ML (LOVENOX) SYR SC SCH (08:52)
[2021-07-15] MEDS: SENNOSIDES 8.6 MG (SENOKOT) TAB PO SCH ×2 (08:52→21:51)
[2021-07-15] MEDS: DOCUSATE SODIUM 100 MG (COLACE) CAP PO SCH ×2 (08:53→21:51)
--- NOTE | 2021-07-15 09:32 | Tele-ICU Progress Note ---
Progress Note video rounds completed 61 y/o male with metastatic lung CA admitted with UTI Overall doing well on antibiotics No current issues Focused Exam Lactate Level 07/14/21 02:40: Lactic Acid Level 2.33*H 07/14/21 05:48: Lactic Acid Level 1.08 Height, Weight, BMI Height: 6'0" Weight: 169lbs. oz. 76.645749nu; 24.23 BMI Method:Stated Laboratory Tests 07/15/21 04:30 Results/Procedures Lab Laboratory Tests 07/14/21 02:40 07/15/21 04:30 CLARKE MANNING MD Jul 15, 2021 09:32
[2021-07-15] MEDS: VANCOMYCIN INJECTION 1,000 MG in NS (IVPB) 250 ML IV SCH ×2 (10:16→21:51)
[2021-07-15] MEDS ORDERED: SENNOSIDES 8.6 MG (SENOKOT) TAB PO PRN (11:30)
[2021-07-15] MEDS ORDERED: HYDROcodone/APAP 5 MG/325 MG (LORTAB) TAB PO PRN (11:30)
[2021-07-15] MEDS ORDERED: RT-ALBUTEROL/IPRATROPIUM 3 ML (DUONEB) VIAL IH PRN (11:30)
[2021-07-15] MEDS ORDERED: RT-ALBUTEROL SULF 2.5 MG/3 ML PRE-MIX VIAL INH PRN (11:30)
[2021-07-15] MEDS ORDERED: RX-CYCLOBENZAPRINE 10 MG (FLEXERIL) TAB PPK#3 PO PRN (11:30)
[2021-07-15] MEDS ORDERED: CYCLOBENZAPRINE 10 MG (FLEXERIL) TAB PO PRN (12:00)
[2021-07-15 16:00] VITALS: BP 133/86
[2021-07-15 16:07] VITALS: BP 138/99
[2021-07-15 20:46] VITALS: BP 151/72
[2021-07-15] MEDS: traZODone 100 MG (DESYREL) TAB PO SCH (21:51)
[2021-07-15] MEDS: FLUTICASONE NASAL SPRAY (FLONASE) 16 GM BTL NS SCH (23:33)
[2021-07-15 23:38] VITALS: BP 115/65
[2021-07-16] VITALS (7 sets, daily range): BP systolic 125–193; BP diastolic 60–117
[2021-07-16] MEDS: RT-ALBUTEROL HFA 8.5 GM INHALER IH SCH (02:20)
[2021-07-16 05:43] LABS: BASOPHILS % (AUTO) 0 % (0-10); EOSINOPHILS % (AUTO) 0 % (0-10); HEMATOCRIT 30 % (40-54); HEMOGLOBIN 10.4 g/dL (13.3-17.7); LYMPHOCYTES # (AUTO) 0.3 10^3/uL (1.0-4.0); LYMPHOCYTES % (AUTO) 2 % (12-44); MEAN CORPUSCULAR HEMOGLOBIN 28 pg (25-34); MEAN CORPUSCULAR HGB CONC 34 g/dL (32-36); MEAN CORPUSCULAR VOLUME 82 fL (80-99); MEAN PLATELET VOLUME 8.6 fL (9.0-12.2); MONOCYTES # (AUTO) 0.5 10^3/uL (0.0-1.0); MONOCYTES % (AUTO) 4 % (0-12); NEUTROPHILS # (AUTO) 11.8 10^3/uL (1.8-7.8); NEUTROPHILS % (AUTO) 93 % (42-75); PLATELET COUNT 274 10^3/uL (130-400); WHITE BLOOD COUNT 12.6 10^3/uL (4.3-11.0)
[2021-07-16 06:10] LABS: ALBUMIN 2.9 GM/DL (3.2-4.5); BILIRUBIN,TOTAL 0.5 MG/DL (0.1-1.0); CALCIUM 8.5 MG/DL (8.5-10.1); CREATININE SERUM 0.71 MG/DL (0.60-1.30); POTASSIUM 4.2 MMOL/L (3.6-5.0)
[2021-07-16] MEDS: RT-ALBUTEROL/IPRATROPIUM 3 ML (DUONEB) VIAL INH SCH ×4 (06:15→22:02)
--- NOTE | 2021-07-16 06:36 | Progress Note - Hospitalist ---
Subjective HPI/CC On Admission Date Seen by Provider: Jul 16, 2021 Time Seen by Provider: 12:30 CC: SOB HPI: [facility] pt that I just discharged this past week after hyponatremia resolved with salt tablets and radiation treatment. Other chemotherapy was set up with cancer center for lung cancer with widespread metastasis. Who presented to the ER for the long-term who was placed on BiPAP due to SOB found to have an exacerbation of COPD. Sodium level was 130. Pt appears to have a very extensive spread of lung cancer and he is DNR. He is requiring Precedex and other sedatives due to terminal restlessness. 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 Will be monitored closely due to the end stage process of his life. Subjective/Events-last exam Patient is doing better Daughter at bedside Lasix ordered for anasarca No pain reported Wants DC to NH soon Review of Systems General: Fatigue, Malaise Cardiovascular: Edema Focused Exam Lactate Level 07/14/21 02:40: Lactic Acid Level 2.33*H 07/14/21 05:48: Lactic Acid Level 1.08 Objective Exam Vital Signs Vital Signs Date Time Temp Pulse Resp B/P (MAP) Pulse Ox O2 Delivery O2 Flow Rate FiO2 07/16/21 19:43 36.8 127 20 193/117 (142) 95 Room Air 07/15/21 16:07 21 07/15/21 09:00 21.00 Capillary Refill : General Appearance: No Apparent Distress, WD/WN, Chronically ill Respiratory: Lungs Clear, Normal Breath Sounds, Decreased Breath Sounds Cardiovascular: Regular Rate, Rhythm Extremity: Pedal Edema Neurologic/Psychiatric: Alert, Oriented x3 Results/Procedures Lab Laboratory Tests 07/16/21 05:33 Patient resulted labs reviewed. 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
[2021-07-16] MEDS: methylPREDNISolone 125 MG (Solu-MEDROL) VIAL IVP SCH ×4 (06:37→21:58)
[2021-07-16] MEDS: FUROSEMIDE 40 MG/4 ML INJ (LASIX) IVP SCH ×3 (06:37→16:57)
[2021-07-16] MEDS: MEROPENEM 1,000 MG in NS (IVPB) 100 ML IV SCH ×3 (06:38→23:06)
[2021-07-16] MEDS: VANCOMYCIN INJECTION 1,000 MG in NS (IVPB) 250 ML IV SCH ×2 (08:39→21:58)
[2021-07-16] MEDS: lisINopril 10 MG (PRINIVIL) TABLET PO SCH (08:39)
[2021-07-16] MEDS: LORATADINE (CLARITIN) 10 MG TAB PO SCH (08:39)
[2021-07-16] MEDS: SENNOSIDES 8.6 MG (SENOKOT) TAB PO SCH ×2 (08:39→21:57)
[2021-07-16] MEDS: DOCUSATE SODIUM 100 MG (COLACE) CAP PO SCH ×2 (08:39→21:57)
[2021-07-16] MEDS: ENOXAPARIN 40 MG/0.4 ML (LOVENOX) SYR SC SCH (08:40)
[2021-07-16] MEDS: FLUTICASONE NASAL SPRAY (FLONASE) 16 GM BTL NS SCH ×2 (08:41→21:58)
[2021-07-16] MEDS ORDERED: NON-FORMULARY MEDICATION 1 EA EA (Cetirizine HCl 10 MG) PO SCH (09:00)
[2021-07-16] MEDS ORDERED: RT-ALBUTEROL HFA 8.5 GM INHALER IH PRN (10:00)
[2021-07-16] MEDS: guaiFENesin SYRUP 100 MG/5 ML 10 ML (ROBITUSSIN SF) PO PRN (16:57)
[2021-07-16] MEDS: traZODone 100 MG (DESYREL) TAB PO SCH (21:57)
[2021-07-17] MEDS: RT-ALBUTEROL/IPRATROPIUM 3 ML (DUONEB) VIAL INH SCH ×4 (02:38→14:58)
[2021-07-17 04:53] VITALS: BP 143/77
[2021-07-17] MEDS: MEROPENEM 1,000 MG in NS (IVPB) 100 ML IV SCH ×2 (06:14→13:39)
[2021-07-17] MEDS: FUROSEMIDE 40 MG/4 ML INJ (LASIX) IVP SCH (06:14)
[2021-07-17] MEDS: guaiFENesin SYRUP 100 MG/5 ML 10 ML (ROBITUSSIN SF) PO PRN (06:23)
[2021-07-17 06:31] LABS: BASOPHILS % (AUTO) 0 % (0-10); EOSINOPHILS % (AUTO) 0 % (0-10); HEMATOCRIT 31 % (40-54); HEMOGLOBIN 10.3 g/dL (13.3-17.7); LYMPHOCYTES # (AUTO) 0.4 10^3/uL (1.0-4.0); LYMPHOCYTES % (AUTO) 3 % (12-44); MEAN CORPUSCULAR HEMOGLOBIN 28 pg (25-34); MEAN CORPUSCULAR HGB CONC 34 g/dL (32-36); MEAN CORPUSCULAR VOLUME 82 fL (80-99); MEAN PLATELET VOLUME 8.7 fL (9.0-12.2); MONOCYTES # (AUTO) 0.9 10^3/uL (0.0-1.0); MONOCYTES % (AUTO) 8 % (0-12); NEUTROPHILS # (AUTO) 10.4 10^3/uL (1.8-7.8); NEUTROPHILS % (AUTO) 88 % (42-75); PLATELET COUNT 250 10^3/uL (130-400); WHITE BLOOD COUNT 11.8 10^3/uL (4.3-11.0)
[2021-07-17 06:47] LABS: BILIRUBIN,TOTAL 0.5 MG/DL (0.1-1.0); CALCIUM 8.7 MG/DL (8.5-10.1); CREATININE SERUM 0.69 MG/DL (0.60-1.30); TOTAL PROTEIN 6.4 GM/DL (6.4-8.2)
[2021-07-17] MEDS: DOCUSATE SODIUM 100 MG (COLACE) CAP PO SCH (09:00)
[2021-07-17] MEDS: lisINopril 10 MG (PRINIVIL) TABLET PO SCH (09:00)
[2021-07-17] MEDS: LORATADINE (CLARITIN) 10 MG TAB PO SCH (09:00)
[2021-07-17] MEDS: SENNOSIDES 8.6 MG (SENOKOT) TAB PO SCH (09:00)
[2021-07-17] MEDS: FLUTICASONE NASAL SPRAY (FLONASE) 16 GM BTL NS SCH (09:01)
[2021-07-17] MEDS: VANCOMYCIN INJECTION 1,000 MG in NS (IVPB) 250 ML IV SCH (09:01)
[2021-07-17] MEDS: ENOXAPARIN 40 MG/0.4 ML (LOVENOX) SYR SC SCH (09:01)
[2021-07-17] MEDS: methylPREDNISolone 125 MG (Solu-MEDROL) VIAL IVP SCH (09:01)
[2021-07-17 09:08] VITALS: BP 164/93
[2021-07-17 11:44] VITALS: BP 168/94
[2021-07-17] MEDS ORDERED: FURO40TA4 PO (13:05)
[2021-07-17] MEDS ORDERED: LEVO750T39 PO (13:05)
[2021-07-17] MEDS ORDERED: PRD50T PO (13:05)
--- NOTE | 2021-07-17 13:08 | Discharge Summary ---
Discharge [facility] Discharge Medications New, Converted or Re-Newed RX: Transmitted to Pharmacy New Medications: Furosemide (Furosemide) 40 Mg Tablet 40 MG PO DAILY, #30 TAB 0 Refills Levofloxacin (Levofloxacin) 750 Mg Tablet 750 MG PO DAILY, #7 TAB 0 Refills Prednisone (Prednisone) 50 Mg Tab 50 MG PO DAILY, #2 TAB 0 Refills Continued Medications: Albuterol Sulfate (Ventolin Hfa) 1 Puff Puff 2 PUFF INH Q6H PRN for SHORTNESS OF BREATH, EA Cetirizine HCl (Cetirizine HCl) 10 Mg Tablet 10 MG PO DAILY, TAB Cyclobenzaprine HCl (Cyclobenzaprine HCl) 10 Mg Tablet 10 MG PO Q12H PRN for SPASMS, TAB Fluticasone Propionate (Fluticasone Propionate) 16 Gm [place].susp 1 SPRAY NSEACH BID, EA Guaifenesin (Guaifenesin) 100 Mg/5 Ml Liquid 10 ML PO Q4H PRN for COUGH, EA Hydrocodone/Acetaminophen (Hydrocodone-Acetamin 5-325 mg) 1 Each Tablet 1 EA PO Q8H PRN for PAIN-MODERATE (5-7), TAB Ipratropium/Albuterol Sulfate (Iprat-Albut 0.5-3(2.5) mg/3 ml) 3 Ml Ampul.neb 3 ML IH Q6H PRN for SHORTNESS OF BREATH, EACH Lisinopril (Lisinopril) 10 Mg Tablet 10 MG PO DAILY, TAB HOLD FOR SBP <100 OR PULSE <60- NOTIFY PCP IF HELD FOR 3 CONSECUTIVE DAYS Sennosides (Senna) 8.6 Mg Tablet 8.6 MG PO DAILY PRN for CONSTIPATION-5TH LINE, TAB Patient Instructions Return to The Hospital For: Fever, shortness of breath, inability to keep down medications Activity & Diet Discharge Diet: Regular Diet Activity as Tolerated: Yes HERLINDA NDIAYE MD Jul 17, 2021 13:08
--- NOTE | 2021-07-17 13:09 | Discharge Summary ---
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 Goncalves's H&P "HPI: [facility] pt that I just discharged this past week after hyponatremia resolved with salt tablets and radiation treatment. Other chemotherapy was set up with cancer center for lung cancer with widespread metas tasis. Who [facility] who was placed on BiPAP due to SOB found to have an exacerbation of COPD. Sodium level was 130. Pt appears to have a very extensive spread of lung cancer and he is DNR. He is requiring Precedex and other sedatives due to terminal restlessness. 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 Will be monitored closely due to the end stage process of his life." Pt admitted and had improvement in status throughout stay, was alert and oriented and on room air at time of d/c, had urinary tract infection with klebsiella and pseudomonas treated, placed on lasix for swelling. Discharged on levofloxacin and lasix back to nursing facility. Labs and Pending Lab Test: Laboratory Tests 07/17/21 06:21: White Blood Count 11.8H, Red Blood Count 3.74L, Hemoglobin 10.3L, Hematocrit 31L , Mean Corpuscular Volume 82, Mean Corpuscular Hemoglobin 28, Mean Corpuscular Hemoglobin Concent 34, Red Cell Distribution Width 18.9H, Platelet Count 250, Mean Platelet Volume 8.7L, Immature Granulocyte % (Auto) 1, Neutrophils (%) (Auto) 88H, Lymphocytes (%) (Auto) 3L, Monocytes (%) (Auto) 8, Eosinophils (%) (Auto) 0, Basophils (%) (Auto) 0, Neutrophils # (Auto) 10.4H, Lymphocytes # (Auto) 0.4L, Monocytes # (Auto) 0.9, Eosinophils # (Auto) 0.0, Basophils # (Auto) 0.0, Immature Granulocyte # (Auto) 0.1, Sodium Level 133L, Potassium Level 4.0, Chloride Level 97L, Carbon Dioxide Level 24, Anion Gap 12, Blood Urea Nitrogen 17, Creatinine 0.69, Estimat Glomerular Filtration Rate 105, BUN/ Creatinine Ratio 25, Glucose Level 113H, Calcium Level 8.7, Corrected Calcium 9.5, Total Bilirubin 0.5, Aspartate Amino Transf (AST/SGOT) 30, Alanine Aminotransferase (ALT/SGPT) 40, Alkaline Phosphatase 57, Total Protein 6.4, Albumin 3.0L Microbiology 07/14/21 Blood Culture - Preliminary, Resulted No growth 07/14/21 Urine Culture - Preliminary, Resulted Mixed Bacterial Earline Pseudomonas aeruginosa Klebsiella oxytoca Home Meds Active Prednisone 50 Mg Tab 50 Mg PO DAILY Levofloxacin 750 Mg Tablet 750 Mg PO DAILY Furosemide 40 Mg Tablet 40 Mg PO DAILY Reported Ventolin Hfa (Albuterol Sulfate) 1 Puff Puff 2 Puff INH Q6H PRN Senna (Sennosides) 8.6 Mg Tablet 8.6 Mg PO DAILY PRN Hydrocodone-Acetamin 5-325 mg (Hydrocodone/Acetaminophen) 1 Each Tablet 1 Ea PO Q8H PRN Cyclobenzaprine HCl 10 Mg Tablet 10 Mg PO Q12H PRN Guaifenesin 100 Mg/5 Ml Liquid 10 Ml PO Q4H PRN Fluticasone Propionate 16 Gm [place].susp 1 [place] NSEACH BID Lisinopril 10 Mg Tablet 10 Mg PO DAILY HOLD FOR SBP <100 OR PULSE <60- NOTIFY PCP IF HELD FOR 3 CONSECUTIVE DAYS Cetirizine HCl 10 Mg Tablet 10 Mg PO DAILY Iprat-Albut 0.5-3(2.5) mg/3 ml (Ipratropium/Albuterol Sulfate) 3 Ml Ampul.neb 3 Ml IH Q6H PRN Assessment/Pt DC Instructions Follow up per provider at nursing facility Discharge Physical Examination Allergies: Coded Allergies: Penicillins (Verified Allergy, Unknown, 06/25/14) melatonin (Verified Allergy, Unknown, 06/11/21) penicillin (Unverified Allergy, Unknown, 01/03/15) General Appearance: No Apparent Distress Respiratory: No Respiratory Distress, Decreased Breath Sounds Cardiovascular: Regular Rate, Rhythm, No Murmur Gastrointestinal: Normal Bowel Sounds, Non Tender, Soft Neurologic/Psychiatric: Alert, Normal Mood/Affect HERLINDA NDIAYE MD Jul 17, 2021 13:09
[2021-07-17 14:37] VITALS: BP 135/84
[2021-07-17 16:30] VITALS: BP 135/84
== END 2021-07-17 16:51 | DRG 189 ==
LOC: EDUNIT# 02:32 → ER 02:33 → ICU 06:33 → 4TH 07-15 13:15
PROVIDERS: ADMIT Internal Medicine; ATTEND Family Medicine
PROC: 5A09357 Assistance with Respiratory Ventilation, Less than 24 Consecutive Hours, Continuous Positive Airway Pressure (ICD-10-PCS; principal; 2021-07-14)
DX: J96.21 Acute and chronic respiratory failure with hypoxia (principal); J44.1 Chronic obstructive pulmonary disease with (acute) exacerbation; N39.0 Urinary tract infection, site not specified; E87.1 Hypo-osmolality and hyponatremia; C34.91 Malignant neoplasm of unspecified part of right bronchus or lung; J90 Pleural effusion, not elsewhere classified; C79.31 Secondary malignant neoplasm of brain; R60.1 Generalized edema; I10 Essential (primary) hypertension; Z66 Do not resuscitate; F17.210 Nicotine dependence, cigarettes, uncomplicated; R41.0 Disorientation, unspecified; Z20.822 Contact with and (suspected) exposure to COVID-19
CPT/HCPCS: 36415; 71045; 71275; 80053; 80202; 81000; 82805; 82947; 83605; 83880; 84145; 85007; 85025; 85027; 85379; 85610; 85730; 86141; 87040; 87077; 87088; 87186; 87635; 87636; 87804; 93005; 94640; 94660; 94760; 99291

== ENCOUNTER 2021-07-25 14:51 | Outpatient (CLI) | payer MEDICARE, MEDICAID ==
[~2021-07-25] VITALS: Ht 180.3 cm; Wt 79.5 kg
[~2021-07-25 14:51] MED LIST changes: +CETI10TA17 PO; +CYCL10TA25 PO; +FLUT16SP22 NSEACH; +FURO40TA4 PO; +GUAI100L13 PO; +IPRA3AMP31 IH; +LEVO750T39 PO; +LISI10TA25 PO; +PRD50T PO; +RT-ALBUINH INH; +SENN-234 PO
== END 2021-07-26 11:44 | disposition home or self-care (01) ==
LOC: PREOP 14:51
PROVIDERS: ATTEND Surgery
DX: Z01.818 Encounter for other preprocedural examination (principal)

== ENCOUNTER 2021-07-26 11:02 | Day surgery (SDC) | payer MEDICARE, MEDICAID ==
[2021-07-26] VITALS (7 sets, daily range): BP systolic 118–138; BP diastolic 87–99
[~2021-07-26] VITALS: Ht 180.3 cm; Wt 79.5 kg
[2021-07-26] MEDS ORDERED: CLINDAMYCIN 600 MG/50 ML IVPB 50 ML IV ONE ×2 (11:30→11:55)
[2021-07-26] MEDS ORDERED: LACTATED RINGERS 1,000 ML IV PRN (12:00)
[2021-07-26] MEDS ORDERED: 0.9% SODIUM CHLORIDE PF INJ 20 ML VIAL ONE (13:07)
[2021-07-26] MEDS ORDERED: LIDOCAINE/EPI 1%-1:200,000 (XYLOCAINE) 30 ML VIAL ONE (13:07)
[2021-07-26] MEDS ORDERED: HEParin (CENTRAL IV FLUSH) 500 UNIT/5 ML SYR ONE (13:07)
[2021-07-26] MEDS ORDERED: LIDOCAINE PF 2% 5 ML (XYLOCAINE) VIAL ONE (14:00)
[2021-07-26] MEDS ORDERED: KETAMINE 50 MG/5 ML SYRINGE ONE (14:00)
[2021-07-26] MEDS ORDERED: MIDAZOLAM 2 MG/2 ML (VERSED) VIAL ONE ×2 (14:00→14:20)
[2021-07-26] MEDS ORDERED: proPOfol 200 MG/20 ML (DIPRIVAN) VIAL IV ONE (14:00)
--- NOTE | 2021-07-26 14:38 | Progress Note-Post Operative ---
Post-Operative Progess Note Surgeon (s)/Adapted Physical Education Specialist (s) Surgeon MELISA MARIO DO Adapted Physical Education Specialist: NAVDEEP Paula Pre-Operative Diagnosis LUNG CANCER Post-Operative Diagnosis same Procedure & Operative Findings Date of Procedure 07/26/21 Procedure Performed/Findings Rachael-Cath Placement PROCEDURE: The patient was taken to the operating suite, was prepped and draped in the sterile fashion. A surgical pause was performed. Local anesthetic was infiltrated at the clavicle and along the tract to the right anterior chest, where more local was placed so the pocket could be created. Using an 18 gauge finder needle with negative inspiration the right subclavian vein was accessed on the first attempt and dark nonpulsatile blood was withdrawn. The wire was inserted and fluoroscopy assured proper placement. The needle was removed. The regular wire was inserted and fluoroscopy assured proper placement. The wire was then secured. A #11 blade scalpel was used to make an incision over the right chest and along guidewire. Cautery was used to dissect down to the pectoral fascia. A pocket was created with blunt dissection. The dilator sheath was then advanced over the wire under fluoroscopy and the dilator and wire were removed. The [place] catheter was inserted through the sheath and the sheath was then removed. The [place] wire was removed. The catheter was then tunneled to the right chest pocket. Fluoroscopy was used to cut to length and this was then attached to the port which was then placed within the pocket. The port was then accessed without difficulty. It was then flushed with saline and then heparin. The subcutaneous tissues were then reapproximated using 3-0 Vicryl. Finally the skin was closed with 4-0 undyed monocryl, 3 interrupted sutures. The areas were then washed and dried. Skin Affix was placed over incision. The insertion point of the neck Skin Affix was placed over the incision. The patient tolerated the procedure well without complication and was taken to recovery room in stable condition. Anesthesia Type IV sedation by Anesthesiologist Estimated Blood Loss Estimated blood loss (mL): less than 5ml Specimens/Packing Specimens Removed none MELISA MARIO DO Jul 26, 2021 14:38
--- NOTE | 2021-07-26 14:39 | Discharge Inst-Surgical ---
Discharge Inst-Surgical Depart Medication/Instructions New, Converted or Re-Newed RX: Other (use home meds) Patient Instructions Follow up Appt: Make appointment for 1 week. [phone] Instructions: No lifting greater than 20 pounds. No strenuous activity. May shower in 24 hours, no tub bath or soaking. Use incentive spirometer at home as directed. No Smoking Skin/Wound Care: May remove bandages in am. You need to leave the Dermabond on incision it will fall off on it's own. Symptoms to Report: Appetite Changes, Extremity Discoloration, Numbness/Tingling, Swelling Increased, Bleeding Excessive, Eyesight Changes, Pain Increased, Urine Color Change, Constipation(Persistent), Fever over 101 degree F, Pain/Pressure in chest, Urinating Difficulty, Cough Up/Vomit Blood, Heart Beat Irreg/Pounding, Pain/Pressure in jaw, Cramps in feet or legs, Lightheadedness, Pain/Pressure in shoulder, Diarrhea(Persistent), Memory Changes Suddenly, Questions/Concerns, Weight gain consecutive days, Dizziness/Fainting, Nausea/Vomiting, Shortness of Breath, Weight gain over 2 pounds If questions or concerns contact your physician Or seek help at emergency department. Activity Activity as Tolerated: Yes Activity Instructions: Avoid Stress to Incision Driving Instructions: No Driving/Refer to Dr. Moreno Discharge Diet: No Restrictions Diet After 24 Hours: Clear Liquid if Nauseous If Any Problems/Questions/Issu: Contact Your Physician, Go to Emergency Room Skin/Wound Care Infection Signs and Symptoms: Increased Redness, Foul Odor of Wound, Increased Drainage, Skin Itchy or Has a Rash, Increased Swelling, Temperature Above 101 F Bathing Instructions: Shower Stitches/Brendon/Dermabond Dis: MELISA Mendieta DO Jul 26, 2021 14:39
--- NOTE | 2021-07-26 14:57 | Anesthesia-General Post-Op ---
MAC Patient Condition Mental Status/LOC: Same as Preop Cardiovascular: Satisfactory Nausea/Vomiting: Absent Respiratory: Satisfactory Pain: Controlled Complications: Absent Post Op Complications Complications None Follow Up Care/Instructions Patient Instructions None needed. Anesthesiology Discharge Order Discharge Order Patient is doing well, no complaints, stable vital signs, no apparent adverse anesthesia problems. CORETTA HAYDEN DO Jul 26, 2021 14:57
[2021-07-26] MEDS ORDERED: morphine INJ 10 MG/ML 1ML (SYR OR VIAL) IVP ONE (15:00)
[2021-07-26] MEDS ORDERED: ONDANSETRON 4 MG/2 ML (SDV) Z0FRAN IVP PRN (15:00)
--- NOTE | 2021-07-26 15:43 | Diagnostic Imaging Report ---
INDICATION: Lung mass. COMPARISON: CT dated 07/14/2021. TOTAL FLUOROSCOPY TIME: 4 seconds. TOTAL NUMBER OF FLUOROSCOPIC IMAGES SAVED: 1. FINDINGS: Single intraoperative image intensifier view of the chest was obtained during Port-A-Cath placement. Image provided shows left subclavian venous approach. Central tip of the catheter is not well visualized. Evaluation for pneumothorax is suboptimal given fluoroscopic modality. Please note, interpreting radiologist was not present during the procedure. IMPRESSION: Fluoroscopic guidance provided during Port-A-Cath placement. Dictated by: Dictated on workstation # [id number]
== END 2021-07-26 16:05 | disposition home or self-care (01) ==
LOC: SDC 11:02
PROVIDERS: ATTEND Surgery
DX: C34.90 Malignant neoplasm of unspecified part of unspecified bronchus or lung (principal); T82.594A Other mechanical complication of infusion catheter, initial encounter; I87.2 Venous insufficiency (chronic) (peripheral); I10 Essential (primary) hypertension; J44.9 Chronic obstructive pulmonary disease, unspecified; Z79.899 Other long term (current) drug therapy; Z87.891 Personal history of nicotine dependence; Z79.891 Long term (current) use of opiate analgesic; Z83.3 Family history of diabetes mellitus
CPT/HCPCS: 36561; 76000; 87081; C1788

== ENCOUNTER 2021-10-04 02:53 | Emergency (ER) | payer MEDICARE, MEDICAID ==
[~2021-10-04] VITALS: Ht 17.7 cm; Wt 83.0 kg
[2021-10-04 03:15] VITALS: BP 135/109
[2021-10-04] MEDS ORDERED: BENZONATATE 100 MG (TESSALON) CAPSULE PO STA (03:24)
--- NOTE | 2021-10-04 04:47 | ED EENT ---
History of Present Illness General Chief Complaint: Oral/Throat Problems Stated Complaint: COUGHING Nursing Triage Note: PATIENT ARRIVED VIA EMS WITH C/O THROAT IRRITATION AND PERSISTANT COUGH. PATIENT IS ACTIVELY TAKING CHEMO AND THIS HAS BEEN GOING ON FOR SEVERAL DAYS NOW. History of Present Illness Date Seen by Provider: Oct 04, 2021 Time Seen by Provider: 03:33 Initial Comments 61 yr M with PMH of lung cancer currently taking chemotherapy/COPD end-stage, is sent here from long-term rehab with complaints of cough that has been persistent with throat irritation for the past couple of days. The rehab center staff stated that he has been coughing nonstop tonight and that is why they sent him to the ER. In the ER the patient coughed once. Patient appeared comfortable without any complaints except for throat irritation and occasional cough. Denies fever, shortness of breath, chest pain, abdominal pain, nausea and vomiting, diarrhea. No known sick contacts in the home. Allergies and Home Medications Allergies Coded Allergies: Penicillins (Verified Allergy, Unknown, 07/26/21) melatonin (Verified Allergy, Unknown, 07/26/21) Patient Home Medication List Home Medication List Reviewed: Yes Albuterol Sulfate (Ventolin Hfa) 1 Puff Puff, 2 PUFF INH Q6H PRN for SHORTNESS OF BREATH, (Reported) Entered as Reported by: ALEXANDRA CAMPOS on 07/14/21 114 Cetirizine HCl (Cetirizine HCl) 10 Mg Tablet, 10 MG PO DAILY, (Reported) Entered as Reported by: ALEXANDRA CAMPOS on 07/14/21 114 Cyclobenzaprine HCl (Cyclobenzaprine HCl) 10 Mg Tablet, 10 MG PO Q12H PRN for SPASMS, (Reported) Entered as Reported by: ALEXANDRA CAMPOS on 07/14/21 1147 Fluticasone Propionate (Fluticasone Propionate) 16 Gm [place].susp, 1 SPRAY NSEACH BID, (Reported) Entered as Reported by: ALEXANDRA CAMPOS on 07/14/21 114 Furosemide (Furosemide) 40 Mg Tablet, 40 MG PO DAILY Prescribed by: HERLINDA NDIAYE on 07/17/21 1305 Guaifenesin (Guaifenesin) 100 Mg/5 Ml Liquid, 10 ML PO Q4H PRN for COUGH, (R eported) Entered as Reported by: ALEXANDRA CAMPOS on 07/14/21 1147 Hydrocodone/Acetaminophen (Hydrocodone-Acetamin 5-325 mg) 1 Each Tablet, 1 EA PO Q8H PRN for PAIN-MODERATE (5-7), (Reported) Entered as Reported by: ALEXANDRA CAMPOS on 07/14/21 1147 Ipratropium/Albuterol Sulfate (Iprat-Albut 0.5-3(2.5) mg/3 ml) 3 Ml Ampul.neb, 3 ML IH Q6H PRN for SHORTNESS OF BREATH, (Reported) Entered as Reported by: ALEXANDRA CAMPOS on 07/14/21 1147 Lisinopril (Lisinopril) 10 Mg Tablet, 10 MG PO DAILY, (Reported) Entered as Reported by: ALEXANDRA CAMPOS on 07/14/21 1147 Prednisone (Prednisone) 50 Mg Tab, 50 MG PO DAILY Prescribed by: HERLINDA NDIAYE on 07/17/21 1305 Sennosides (Senna) 8.6 Mg Tablet, 8.6 MG PO DAILY PRN for CONSTIPATION-5TH LINE, (Reported) Entered as Reported by: ALEXANDRA CAMPOS on 07/14/21 1147 Review of Systems Review of Systems Constitutional: no symptoms reported Eyes: No Symptoms Reported Ears: No Symptoms Reported Nose: no symptoms reported Mouth: no symptoms reported Throat: pain Respiratory: cough Cardiovascular: no symptoms reported Gastrointestinal: no symptoms reported Musculoskeletal: no symptoms reported Skin: no symptoms reported Neurological: No Symptoms Reported Hematologic/Lymphatic: No Symptoms Reported Immunological/Allergic: no symptoms reported Past Qnejjlf-Coxfvr-Vcpwje Hx Immunizations Up To Date Tetanus Booster (TDap): Unknown First/Initial COVID19 Vaccinat: SEPTEMBER 2020 Second COVID19 Vaccination Alexey: OCTOBER 2020 Third COVID19 Vaccination Date: 2020 Past Medical History Surgery/Hospitalization HX: HTN, COPD, HERNIA REPAIR, RIGHT LUNG MASS, CT guided lung biopsy 07/14/20 Surgeries: Yes Abdominal, Eye Surgery Respiratory: Yes COPD, Emphysema Currently Using CPAP: No Currently Using BIPAP: No Cardiac: Yes (Vena Cava Syndrome, INCREASED HEART RATE) Hypertension Neurological: Yes (brain mets) Paralysis Genitourinary: No Gastrointestinal: Yes Abdominal Hernia Musculoskeletal: Yes (spinal metastasis) Endocrine: No HEENT: Yes Cataract Loss of Vision: Denies Hearing Impairment: Denies Cancer: Yes Brain, Lung Did You Recieve Any Treatments: No Psychosocial: Yes Sleep Difficulties Integumentary: No Blood Disorders: No Family Medical History Heart Disease, Cancer, Diabetes SOCIAL HISTORY: -SMOKES 1 1/2 PPD -ETOH--"30 PACK EVERY 3 DAYS" -DRUGS--DENIES USE Physical Exam Vital Signs Vital Signs - First Documented 10/04/21 03:15 Temp 36.8 Pulse 114 Resp 20 B/P (MAP) 135/109 (118) Pulse Ox 96 O2 Delivery Room Air Height, Weight, BMI Height: 6'0" Weight: 169lbs. oz. 76.442107ee; 2649.00 BMI Method:Stated General Appearance: no apparent distress Mouth/Throat: tonsillar swelling (mild with exudates) Cardiovascular: tachycardia Respiratory: lungs clear, normal breath sounds Neurologic/Psychiatric: no motor/sensory deficits, alert, normal mood/affect, oriented x 3 Skin: normal color Progress/Results/Core Measures Results/Orders Lab Results Laboratory Tests Test 10/04/21 03:20 Range/Units Influenza Type A (RT-PCR) Not Detected Not Detecte Influenza Type B (RT-PCR) Not Detected Not Detecte SARS-CoV-2 RNA (RT-PCR) Not Detected Not Detecte Group A Streptococcus Screen NEGATIVE NEGATIVE My Orders Orders - JD GUTIÉRREZ MD Benzonatate Capsule (Tessalon Perles) (10/04/21 03:24) Covid 19 Inhouse Test (10/04/21 03:27) Influenza A And B By Pcr (10/04/21 03:27) Rapid Strep A Screen (10/04/21 03:30) Azithromycin Tablet (Zithromax Tablet) (10/04/21 05:00) Medications Given in ED Current Medications Medications Dose Ordered Sig/Milo Route Start Time Stop Time Status Last Admin Dose Admin Azithromycin 500 mg ONCE ONCE PO 10/04/21 05:00 10/04/21 05:01 10/04/21 04:54 500 MG Vital Signs/I&O 10/04/21 03:15 Temp 36.8 Pulse 114 Resp 20 B/P (MAP) 135/109 (118) Pulse Ox 96 O2 Delivery Room Air Blood Pressure Mean: 118 Progress Progress Note : Progress Note 1. EXUDATIVE TONSILLITIS/ URI: - Rapid STrep: negative - Rapid Flu: Negative - COVID test neg - Tessalon perles and Azithro prescription - F/u with PCP within 3 days -The patient was seen in the ED, and treated appropriately to presentation at a specific point in time. Patient is informed that there is a possibility that disease and illness can evolve and change in acuity rapidly or slowly after patient is discharged from the ER. Precautionary advice given to the patient for immediate return to ER if symptoms worsen or do not resolve, and to seek emergency care sooner rather than later. Pt also advised on the importance of PCP follow up and compliance with management and follow up plan. Pt verbally expressed understanding. Departure Impression Primary Impression: Exudative tonsillitis Additional Impression: URI (upper respiratory infection) Qualified Codes: J06.9 - Acute upper respiratory infection, unspecified Disposition: 01 HOME, SELF-CARE Condition: Stable Departure-Patient Inst. Referrals: [facility] [place]) Primary Care Physician NIKHIL PATEL (Family) Primary Care Physician Dionisio. Discharge Instructions: - Take prescriptions as prescribed - Follow up with PCP -The patient was seen in the ED, and treated appropriately to presentation at a specific point in time. Patient is informed that there is a possibility that disease and illness can evolve and change in acuity rapidly or slowly after patient is discharged from the ER. Precautionary advice given to the patient for immediate return to ER if symptoms worsen or do not resolve, and to seek emergency care sooner rather than later. Pt also advised on the importance of PCP follow up and compliance with management and follow up plan. Pt verbally expressed understanding. All discharge instructions reviewed with patient and/or family. Voiced understanding. Scripts Benzonatate (TESSALON PERLES) 100 Mg Capsule 100 MG PO BID for Cough for 5 Days, #10 CAP Prov: JD GUTIÉRREZ MD 10/04/21 Azithromycin (Azithromycin) 500 Mg Tablet 500 MG PO DAILY for 2 Days, #2 TAB Prov: JD GUTIÉRREZ MD 10/04/21 JD GUTIÉRREZ MD Oct 04, 2021 04:47
[2021-10-04] MEDS ORDERED: AZITHROMYCIN 250 MG TAB (ZITHROMAX) PO ONE (05:00)
[2021-10-04] MEDS ORDERED: AZIT500T9 PO ×2 (05:02→05:48)
[2021-10-04] MEDS ORDERED: BENZ100C18 PO ×2 (05:03→05:48)
== END 2021-10-04 05:54 | disposition home or self-care (01) ==
LOC: EDUNIT# 02:53 → ER 03:18
DX: C34.91 Malignant neoplasm of unspecified part of right bronchus or lung (principal); J03.90 Acute tonsillitis, unspecified; J06.9 Acute upper respiratory infection, unspecified; Z20.822 Contact with and (suspected) exposure to COVID-19
CPT/HCPCS: 87430; 87636; 99283

== ENCOUNTER 2021-10-12 14:15 | Emergency (ER) | payer MEDICARE, MEDICAID ==
[~2021-10-12] VITALS: Ht 175.2 cm; Wt 86.1 kg
[~2021-10-12 14:15] MED LIST changes: +AZIT500T9 PO; +BENZ100C18 PO
[2021-10-12] MEDS ORDERED: HYDROcodone/APAP 5 MG/325 MG (LORTAB) TAB PO ONE (14:45)
[2021-10-12] MEDS ORDERED: LACTATED RINGERS 1,000 ML IV SCH (14:45)
--- NOTE | 2021-10-12 14:56 | ED General ---
General Chief Complaint: Cough/Cold/Flu Symptoms Stated Complaint: CONGESTION,COUGH Nursing Triage Note: C/O COUGH SOB AND OCCASIONAL WHEEZING. Source of Information: Patient Exam Limitations: No Limitations History of Present Illness Date Seen by Provider: Oct 12, 2021 Time Seen by Provider: 14:54 Initial Comments To ER by private vehicle from [facility] with reports of fever up to 100.4 and cough. They feel his face is swollen. Brother and patient both state that these does appear swollen but it is no different than it has been for the past few months. 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 He is undergoing chemotherapy. He recently had left-sided port placement. 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 He reports a bothersome cough. Timing/Duration: 1-2 Days Severity: Moderate Associated Systoms: Denies Symptoms Allergies and Home Medications Allergies Coded Allergies: Penicillins (Verified Allergy, Unknown, 07/26/21) melatonin (Verified Allergy, Unknown, 07/26/21) Patient Home Medication List Home Medication List Reviewed: Yes Albuterol Sulfate (Ventolin Hfa) 1 Puff Puff, 2 PUFF INH Q6H PRN for SHORTNESS OF BREATH, (Reported) Entered as Reported by: ALEXANDRA CAMPOS on 07/14/21 114 Azithromycin (Azithromycin) 500 Mg Tablet, 500 MG PO DAILY Prescribed by: JD GUTIÉRREZ MD on 10/04/21 0502 Azithromycin (Azithromycin) 500 Mg Tablet, 500 MG PO DAILY Prescribed by: JD GUTIÉRREZ MD on 10/04/21 0548 Benzonatate (Tessalon Perles) 100 Mg Capsule, 100 MG PO BID Prescribed by: JD GUTIÉRREZ MD on 10/04/21 0503 Benzonatate (Tessalon Perles) 100 Mg Capsule, 100 MG PO BID Prescribed by: JD GUTIÉRREZ MD on 10/04/21 0548 Cetirizine HCl (Cetirizine HCl) 10 Mg Tablet, 10 MG PO DAILY, (Reported) Entered as Reported by: ALEXANDRA CAMPOS on 07/14/21 1147 Cyclobenzaprine HCl (Cyclobenzaprine HCl) 10 Mg Tablet, 10 MG PO Q12H PRN for SPASMS, (Reported) Entered as Reported by: ALEXANDRA CAMPOS on 07/14/21 1147 Fluticasone Propionate (Fluticasone Propionate) 16 Gm [place].susp, 1 SPRAY NSEACH BID, (Reported) Entered as Reported by: ALEXANDRA CAMPOS on 07/14/21 114 Furosemide (Furosemide) 40 Mg Tablet, 40 MG PO DAILY Prescribed by: HERLINDA NDIAYE on 07/17/21 1305 Guaifenesin (Guaifenesin) 100 Mg/5 Ml Liquid, 10 ML PO Q4H PRN for COUGH, (Reported) Entered as Reported by: ALEXANDRA CAMPOS on 07/14/21 1147 Hydrocodone/Acetaminophen (Hydrocodone-Acetamin 5-325 mg) 1 Each Tablet, 1 EA PO Q8H PRN for PAIN-MODERATE (5-7), (Reported) Entered as Reported by: ALEXANDRA CAMPOS on 07/14/21 114 Ipratropium/Albuterol Sulfate (Iprat-Albut 0.5-3(2.5) mg/3 ml) 3 Ml Ampul.neb, 3 ML IH Q6H PRN for SHORTNESS OF BREATH, (Reported) Entered as Reported by: ALEXANDRA CAMPOS on 07/14/21 1147 Lisinopril (Lisinopril) 10 Mg Tablet, 10 MG PO DAILY, (Reported) Entered as Reported by: ALEXANDRA CAMPOS on 07/14/21 114 Prednisone (Prednisone) 50 Mg Tab, 50 MG PO DAILY Prescribed by: HERLINDA NDIAYE on 07/17/21 1305 Sennosides (Senna) 8.6 Mg Tablet, 8.6 MG PO DAILY PRN for CONSTIPATION-5TH LINE, (Reported) Entered as Reported by: ALEXANDRA CAMPOS on 07/14/21 1147 Review of Systems Review of Systems Constitutional: see HPI EENTM: see HPI Respiratory: see HPI, cough Cardiovascular: no symptoms reported Genitourinary: no symptoms reported Musculoskeletal: no symptoms reported Skin: no symptoms reported Psychiatric/Neurological: No Symptoms Reported Hematologic/Lymphatic: No Symptoms Reported Immunological/Allergic: no symptoms reported Past Zkcoqya-Dlordu-Npkaot Hx Immunizations Up To Date Tetanus Booster (TDap): Unknown First/Initial COVID19 Vaccinat: SEPTEMBER 2020 Second COVID19 Vaccination Alexey: OCTOBER 2020 Third COVID19 Vaccination Date: 2020 Past Medical History Surgery/Hospitalization HX: HTN, COPD, HERNIA REPAIR, RIGHT LUNG MASS, CT guided lung biopsy 07/14/20 Surgeries: Yes Abdominal, Eye Surgery Respiratory: Yes COPD, Emphysema Currently Using CPAP: No Currently Using BIPAP: No Cardiac: Yes (Vena Cava Syndrome, INCREASED HEART RATE) Hypertension Neurological: Yes (brain mets) Paralysis Genitourinary: No Gastrointestinal: Yes Abdominal Hernia Musculoskeletal: Yes (spinal metastasis) Endocrine: No HEENT: Yes Cataract Loss of Vision: Denies Hearing Impairment: Denies Cancer: Yes Brain, Lung Did You Recieve Any Treatments: No Psychosocial: Yes Sleep Difficulties Integumentary: No Blood Disorders: No Family Medical History Heart Disease, Cancer, Diabetes SOCIAL HISTORY: -SMOKES 1 1/2 PPD -ETOH--"30 PACK EVERY 3 DAYS" -DRUGS--DENIES USE Physical Exam Vital Signs Vital Signs - First Documented 10/12/21 14:30 Temp 36.9 Pulse 107 Resp 18 B/P (MAP) 108/75 (86) Pulse Ox 98 O2 Delivery Room Air Capillary Refill : Less Than 3 Seconds Height, Weight, BMI Height: 6'0" Weight: 169lbs. oz. 76.283193cg; 28.00 BMI Method:Stated General Appearance: No Apparent Distress, WD/WN Eyes: Bilateral Eye Normal Inspection, Bilateral Eye PERRL, Bilateral Eye EOMI Neck: Full Range of Motion, Normal Inspection Respiratory: No Accessory Muscle Use, No Respiratory Distress, Other (Diminished throughout no wheezing 98% room air heart rate 105 blood pressure 97/63.) Cardiovascular: Regular Rate, Rhythm, Normal Peripheral Pulses Gastrointestinal: Non Tender, Soft Extremity: Normal Capillary Refill, Normal Inspection Neurologic/Psychiatric: Alert, Oriented x3 Skin: Normal Color, Warm/Dry Focused Exam Lactate Level 10/12/21 15:20: Lactic Acid Level 1.08 Lactic Acid Level Laboratory Tests Test 10/12/21 15:20 Lactic Acid Level 1.08 MMOL/L (0.50-2.00) Progress/Results/Core Measures Suspected Sepsis SIRS Temperature: Pulse: 107 Respiratory Rate: 18 Laboratory Tests 10/12/21 14:48: White Blood Count 2.6L Blood Pressure 108 /75 Mean: 86 10/12/21 15:20: Lactic Acid Level 1.08 Laboratory Tests 10/12/21 14:48: Creatinine 0.83, Platelet Count 169, Total Bilirubin 0.8 Results/Orders Lab Results Laboratory Tests Test 10/12/21 14:48 10/12/21 15:20 10/12/21 15:40 Range/Units White Blood Count 2.6 L 4.3-11.0 10^3/uL Red Blood Count 2.72 L 4.30-5.52 10^6/uL Hemoglobin 8.7 L 13.3-17.7 g/dL Hematocrit 25 L 40-54 % Mean Corpuscular Volume 92 80-99 fL Mean Corpuscular Hemoglobin 32 25-34 pg Mean Corpuscular Hemoglobin Concent 35 32-36 g/dL Red Cell Distribution Width 17.7 H 10.0-14.5 % Platelet Count 169 130-400 10^3/uL Mean Platelet Volume 9.4 9.0-12.2 fL Immature Granulocyte % (Auto) 2 % Neutrophils (%) (Auto) 75 42-75 % Lymphocytes (%) (Auto) 9 L 12-44 % Monocytes (%) (Auto) 12 0-12 % Eosinophils (%) (Auto) 1 0-10 % Basophils (%) (Auto) 1 0-10 % Neutrophils # (Auto) 1.9 1.8-7.8 10^3/uL Lymphocytes # (Auto) 0.2 L 1.0-4.0 10^3/uL Monocytes # (Auto) 0.3 0.0-1.0 10^3/uL Eosinophils # (Auto) 0.0 0.0-0.3 10^3/uL Basophils # (Auto) 0.0 0.0-0.1 10^3/uL Immature Granulocyte # (Auto) 0.0 0.0-0.1 10^3/uL Sodium Level 123 *L 135-145 MMOL/L Potassium Level 3.8 3.6-5.0 MMOL/L Chloride Level 85 L 98-107 MMOL/L Carbon Dioxide Level 25 21-32 MMOL/L Anion Gap 13 5-14 MMOL/L Blood Urea Nitrogen 13 7-18 MG/DL Creatinine 0.83 0.60-1.30 MG/DL Estimat Glomerular Filtration Rate 100 BUN/Creatinine Ratio 16 Glucose Level 106 H 70-105 MG/DL Calcium Level 9.1 8.5-10.1 MG/DL Corrected Calcium 9.4 8.5-10.1 MG/DL Total Bilirubin 0.8 0.1-1.0 MG/DL Aspartate Amino Transf (AST/SGOT) 17 5-34 U/L Alanine Aminotransferase (ALT/SGPT) 8 0-55 U/L Alkaline Phosphatase 44 40-136 U/L B-Type Natriuretic Peptide 14.0 <100.0 PG/ML Total Protein 5.9 L 6.4-8.2 GM/DL Albumin 3.6 3.2-4.5 GM/DL Procalcitonin 0.09 <0.10 NG/ML Lactic Acid Level 1.08 0.50-2.00 MMOL/L Influenza Type A (RT-PCR) Not Detected Not Detecte Influenza Type B (RT-PCR) Not Detected Not Detecte SARS-CoV-2 RNA (RT-PCR) Not Detected Not Detecte My Orders Orders - RAMIREZ HARPER CREATIVE ENGAGEMENT DIRECTOR Cbc With Automated Diff (10/12/21 14:26) Comprehensive Metabolic Panel (10/12/21 14:26) Chest 1 View, Ap/Pa Only (10/12/21 14:26) Procalcitonin (Pct) (10/12/21 14:38) Bnp Home (10/12/21 14:38) Ct Angio Chest W (10/12/21 14:38) Covid 19 Inhouse Test (10/12/21 14:38) Influenza A And B By Pcr (10/12/21 14:38) Lactated Ringers (Lr 1000 Ml Iv Solution (10/12/21 14:45) Hydrocodone/Apap 5/325 Tablet (Lortab 5 (10/12/21 14:45) Blood Culture (10/12/21 14:58) Lactic Acid Analyzer (10/12/21 14:58) Iohexol Injection (Omnipaque 350 Mg/Ml 1 (10/12/21 15:45) Ns (Ivpb) (Sodium Chloride 0.9% Ivpb Bag (10/12/21 15:45) Medications Given in ED Current Medications Medications Dose Ordered Sig/Milo Route Start Time Stop Time Status Last Admin Dose Admin Acetaminophen/ Hydrocodone Bitart 1 ea ONCE ONCE PO 10/12/21 14:45 10/12/21 14:46 DC 10/12/21 15:34 1 EA Iohexol 100 ml ONCE ONCE IV 10/12/21 15:45 10/12/21 15:46 DC 10/12/21 16:55 73 ML Sodium Chloride 100 ml ONCE ONCE IV 10/12/21 15:45 10/12/21 15:46 DC 10/12/21 16:55 80 ML Vital Signs/I&O 10/12/21 14:30 Temp 36.9 Pulse 107 Resp 18 B/P (MAP) 108/75 (86) Pulse Ox 98 O2 Delivery Room Air Capillary Refill : Less Than 3 Seconds Blood Pressure Mean: 86 Departure Communication (Admissions) 1746-his cough is very bothersome to him. The hydrocodone here did help. I vivek l send him back to [facility] and rehabilitation via his brother with a prescription for hydrocodone 7.5/325 p.o. every 6 hours as needed cough as well as Tessalon Perles. Has been unable to sleep the past 2 nights because of the cough. Did talk to him about starting hospice given his advanced disease just to inform him that whenever he decides that he is tired of chemotherapy there is an option that focuses solely on comfort and that is hospice. Brother is aware of this and would like to start that now. However patient, Chinmay, states he wants to "keep trying" for a bit. Impression Primary Impression: Non-small cell cancer of right lung Additional Impression: Chronic cough Disposition: 01 HOME, SELF-CARE Condition: Stable Departure-Patient Inst. Decision time for Depature: 17:42 Referrals: [facility] [place] (PCP) Primary Care Physician NIKHIL PATEL (Family) Primary Care Physician Patient Instructions: Cough, Adult (DC) Scripts Hydrocodone/Acetaminophen (Hydrocodone-Acetamin 7.5-325) 7.5 Mg-325 Mg Tablet 1 EACH PO Q8H PRN for COUGH, #14 TAB Prov: RAMIREZ HARPER CREATIVE ENGAGEMENT DIRECTOR 10/12/21 Benzonatate (TESSALON PERLES) 100 Mg Capsule 200 MG PO TID, #21 CAP Prov: RAMIREZ HARPER CREATIVE ENGAGEMENT DIRECTOR 10/12/21 RAMIREZ HARPER CREATIVE ENGAGEMENT DIRECTOR Oct 12, 2021 14:55
[2021-10-12 14:58] LABS: BASOPHILS % (AUTO) 1 % (0-10); EOSINOPHILS % (AUTO) 1 % (0-10); HEMATOCRIT 25 % (40-54); HEMOGLOBIN 8.7 g/dL (13.3-17.7); LYMPHOCYTES # (AUTO) 0.2 10^3/uL (1.0-4.0); LYMPHOCYTES % (AUTO) 9 % (12-44); MEAN CORPUSCULAR HEMOGLOBIN 32 pg (25-34); MEAN CORPUSCULAR HGB CONC 35 g/dL (32-36); MEAN CORPUSCULAR VOLUME 92 fL (80-99); MEAN PLATELET VOLUME 9.4 fL (9.0-12.2); MONOCYTES # (AUTO) 0.3 10^3/uL (0.0-1.0); MONOCYTES % (AUTO) 12 % (0-12); NEUTROPHILS # (AUTO) 1.9 10^3/uL (1.8-7.8); NEUTROPHILS % (AUTO) 75 % (42-75); PLATELET COUNT 169 10^3/uL (130-400); WHITE BLOOD COUNT 2.6 10^3/uL (4.3-11.0)
[2021-10-12 15:26] LABS: ALBUMIN 3.6 GM/DL (3.2-4.5); POTASSIUM 3.8 MMOL/L (3.6-5.0)
[2021-10-12 15:27] LABS: CALCIUM 9.1 MG/DL (8.5-10.1)
[2021-10-12 15:29] LABS: TOTAL PROTEIN 5.9 GM/DL (6.4-8.2)
[2021-10-12 15:31] LABS: BILIRUBIN,TOTAL 0.8 MG/DL (0.1-1.0)
[2021-10-12 15:32] LABS: CREATININE SERUM 0.83 MG/DL (0.60-1.30)
[2021-10-12] MEDS ORDERED: NS 100 ML (IVPB) BAG IV ONE (15:45)
[2021-10-12] MEDS ORDERED: IOHEXOL 350 MG/ML 100 ML (OMNIPAQUE 350) VIAL IV ONE (15:45)
--- NOTE | 2021-10-12 16:31 | Diagnostic Imaging Report ---
INDICATION: Cough Frontal chest obtained at 4:18 p.m. and compared to 07/14/2021. Heart is normal in size. There is no change in elevation of the right hemidiaphragm. No change in right upper lobe opacity. There is no new infiltrate or pneumothorax or pleural fluid. IMPRESSION: No change in right upper lobe opacity compared to the prior study. Stable elevation of right hemidiaphragm with no new infiltrate or pleural fluid. Dictated by: Dictated on workstation # [id number]
--- NOTE | 2021-10-12 17:12 | Diagnostic Imaging Report ---
PROCEDURE: CT angiography of the chest with contrast. TECHNIQUE: Multiple contiguous axial images were obtained through the chest after uneventful bolus administration of intravenous contrast. 3D reconstructed CTA MIP acquisitions were also performed. Auto Exposure Controls were utilized during the CT exam to meet ALARA standards for radiation dose reduction. INDICATION: Cough and congestion. History of lung cancer. COMPARISON: 07/14/2021 FINDINGS: No abnormal intraluminal filling defect is seen to the 1st subsegmental division of the pulmonary arteries. Thoracic aorta shows mild scattered calcified and noncalcified atherosclerosis. By NASCET criteria, there is no focal significant stenosis. There is no evidence of dissection or aneurysm. There is reflux of contrast into multiple engorged collateral veins of the superficial soft tissues as well as within the mediastinum. Indwelling left-sided subclavian Port-A-Cath is identified. Tip terminates in the SVC. There is suggestion of high-grade stenosis of the SVC at the level of the tip of the Port-A-Cath. Evaluation of the lung arrieta again demonstrates soft tissue mass within the right upper lobe. It measures 5.1 x 3.7 cm on today's study. Margins of the mass are likely at least partially obscured by atelectasis. Previously, lesion in question measures 4.4 x 3.5 cm, but again these measurements may be inaccurate due to surrounding atelectasis. There is also peribronchial soft tissue thickening of the right hilum. Note is also made of mild right-sided pleural effusion. There is no large effusion on the left. No pneumothorax is seen on either side. Five mm subpleural micronodules also present within the lateral margins of the left lower lobe (image 119, series 3). This appears stable, as well. Osseous structures show no acute abnormalities. No lytic or blastic bony lesions are seen. Included portions of the upper abdomen show no additional acute abnormalities. IMPRESSION: 1. No CT evidence of pulmonary embolus. 2. Multiple contrast-filled collateral veins are identified within the mediastinum and anterior soft tissues of the chest. This may be related to high-grade stenosis of the SVC at the level of the tip of the indwelling Port-A-Cath. 3. Redemonstration right upper lobe mass as described above. 4. Perihilar peribronchial soft tissue thickening on the right. This may be related to previous radiation therapy. Infiltrative metastatic disease is not excluded. 5. Small right effusion. Dictated by: Dictated on workstation # [id number]
[2021-10-12] MEDS ORDERED: HYDR-3817 PO (17:43)
[2021-10-12] MEDS ORDERED: BENZ100C18 PO (17:43)
[2021-10-12 17:55] VITALS: BP 105/82
== END 2021-10-12 17:55 | disposition home or self-care (01) ==
LOC: EDUNIT# 14:15 → ER 14:16
DX: C34.91 Malignant neoplasm of unspecified part of right bronchus or lung (principal); C79.31 Secondary malignant neoplasm of brain; Z20.822 Contact with and (suspected) exposure to COVID-19
CPT/HCPCS: 36415; 71045; 71275; 80053; 83605; 83880; 84145; 85025; 87040; 87636

== ENCOUNTER 2021-10-15 09:17 | Inpatient (IN) | payer MEDICARE, MEDICAID ==
[~2021-10-15] VITALS: Ht 175 cm; Wt 94.2 kg
[~2021-10-15 09:17] MED LIST changes: +HYDR-3817 PO
[2021-10-15] MEDS ORDERED: NS IV 1000 ML 1,000 ML IV SCH (09:45)
[2021-10-15 09:52] LABS: BASOPHILS % (AUTO) 1 % (0-10); EOSINOPHILS % (AUTO) 1 % (0-10); HEMATOCRIT 25 % (40-54); LYMPHOCYTES # (AUTO) 0.4 10^3/uL (1.0-4.0); LYMPHOCYTES % (AUTO) 13 % (12-44); MEAN CORPUSCULAR HEMOGLOBIN 33 pg (25-34); MEAN CORPUSCULAR HGB CONC 36 g/dL (32-36); MEAN CORPUSCULAR VOLUME 90 fL (80-99); MEAN PLATELET VOLUME 9.5 fL (9.0-12.2); MONOCYTES # (AUTO) 0.7 10^3/uL (0.0-1.0); MONOCYTES % (AUTO) 22 % (0-12); NEUTROPHILS # (AUTO) 2.1 10^3/uL (1.8-7.8); NEUTROPHILS % (AUTO) 63 % (42-75); PLATELET COUNT 226 10^3/uL (130-400); WHITE BLOOD COUNT 3.3 10^3/uL (4.3-11.0)
[2021-10-15 10:04] LABS: ALBUMIN 3.3 GM/DL (3.2-4.5)
[2021-10-15 10:05] LABS: POTASSIUM 3.5 MMOL/L (3.6-5.0)
[2021-10-15 10:06] LABS: CALCIUM 8.4 MG/DL (8.5-10.1)
[2021-10-15 10:07] LABS: TOTAL PROTEIN 5.8 GM/DL (6.4-8.2)
[2021-10-15 10:09] LABS: BILIRUBIN,TOTAL 0.7 MG/DL (0.1-1.0); PROTHROMBIN TIME PATIENT 13.7 SEC (12.2-14.7)
--- NOTE | 2021-10-15 10:10 | ED General ---
General Chief Complaint: General Problems/Pain Stated Complaint: SWELLING IN FACE - FEVER- SORE THROAT - FATIGUE Nursing Triage Note: PT TO ED W/ BROTHER FOR C/O CHRONIC COUGH, CONGESTION, GENERALIZED SWELLING. PER NSG HOME, PT HAS HAD 22# WEIGHT GAIN OVER PAST 2 WKS ET LOW GRADE TEMP X3 DAYS. PT IS AFEBRILE AT THIS TIME. PT DENIES C/O PAIN TO THIS RN. PT DOES REPORT WAS IN THIS ED X3 DAYS AGO FOR SAME C/O. 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 PT IS CURRENTLY RECEIVING CHEMOTHERAPY C/O CHRONIC COUGH AND CONGESTION-NO DIFFERENT THAN NORMAL C/O GENERALIZED SWELLING AND WEIGHT GAIN OF 22# OVER THE LAST 2 WEEKS--NO DIFFERENT TODAY C/O FACIAL SWELLING--ALSO AND ONGOING PROBLEM, DUE TO SUPERIOR VENA CAVA SYNDROME--ALSO NO DIFFERENT TODAY C/O SORE THROAT FOR A COUPLE OF WEEKS C/O LOW GRADE FEVER UP TO 100 X 3 DAYS--NO DIFFERENT TODAY C/O GENERALIZED WEAKNESS, ALSO A CHRONIC PROBLEM AND NO DIFFERENT TODAY NO INCREASE IN SHORTNESS OF BREATH PT WAS SEEN HERE ON 10/04/21 FOR SAME AND DX WITH EXUDATIVE PHARYNGITIS AND PRESCRIBED TESSALON AND ZITHROMAX SEEN HERE ALSO ON 10/12/21 FOR THESE SAME COMPLAINTS AND PRESCRIBED TESSALON AND HYDROCODONE. HOSPICE WAS DISCUSSED WITH HIM AT THAT TIME, AND PT DECLINED, AND REPORTED THAT HE WANTED TO CONTINUE TREATMENT. PT HAS NOT HAD NEB TREATMENT THIS AM. PT STATES HIS LAST CHEMO WAS 2 WEEKS AGO STATES HE DID NOT HAVE CHEMO THIS PAST WEEK SCHEDULED--STATES HE "DIDN'T FEEL LIKE IT" PCP:BALDEMAR, JOURNEYMAN MECHANIC NIKHIL PATEL Allergies and Home Medications Allergies Coded Allergies: Penicillins (Verified Allergy, Unknown, 07/26/21) melatonin (Verified Allergy, Unknown, 07/26/21) Patient Home Medication List Home Medication List Reviewed: Yes Albuterol Sulfate (Ventolin Hfa) 1 Puff Puff, 2 PUFF INH Q6H PRN for SHORTNESS OF BREATH, (Reported) Entered as Reported by: ALEXANDRA CAMPOS on 07/14/21 1147 Azithromycin (Azithromycin) 500 Mg Tablet, 500 MG PO DAILY Prescribed by: JD GUTIÉRREZ MD on 10/04/21 0502 Azithromycin (Azithromycin) 500 Mg Tablet, 500 MG PO DAILY Prescribed by: JD GUTIÉRREZ MD on 10/04/21 0548 Benzonatate (Tessalon Perles) 100 Mg Capsule, 100 MG PO BID Prescribed by: JD GUTIÉRREZ MD on 10/04/21 0503 Benzonatate (Tessalon Perles) 100 Mg Capsule, 100 MG PO BID Prescribed by: JD GUTIÉRREZ MD on 10/04/21 0548 Benzonatate (Tessalon Perles) 100 Mg Capsule, 200 MG PO TID Prescribed by: RAMIREZ HARPER on 10/12/21 1743 Cetirizine HCl (Cetirizine HCl) 10 Mg Tablet, 10 MG PO DAILY, (Reported) Entered as Reported by: ALEXANDRA CAMPOS on 07/14/21 1147 Cyclobenzaprine HCl (Cyclobenzaprine HCl) 10 Mg Tablet, 10 MG PO Q12H PRN for SPASMS, (Reported) Entered as Reported by: ALEXANDRA CAMPOS on 07/14/21 1147 Fluticasone Propionate (Fluticasone Propionate) 16 Gm Louise.susp, 1 SPRAY NSEACH BID, (Reported) Entered as Reported by: ALEXANDRA CAMPOS on 07/14/21 1147 Furosemide (Furosemide) 40 Mg Tablet, 40 MG PO DAILY Prescribed by: HERLINDA NDIAYE on 07/17/21 1305 Guaifenesin (Guaifenesin) 100 Mg/5 Ml Liquid, 10 ML PO Q4H PRN for COUGH, (Reported) Entered as Reported by: ALEXANDRA CAMPOS on 07/14/21 1147 Hydrocodone/Acetaminophen (Hydrocodone-Acetamin 5-325 mg) 1 Each Tablet, 1 EA PO Q8H PRN for PAIN-MODERATE (5-7), (Reported) Entered as Reported by: ALEXANDRA CAMPOS on 07/14/21 1147 Hydrocodone/Acetaminophen (Hydrocodone-Acetamin 7.5-325) 7.5 Mg-325 Mg Tablet, 1 EACH PO Q8H PRN for COUGH Prescribed by: RAMIREZ HARPER on 10/12/21 1743 Ipratropium/Albuterol Sulfate (Iprat-Albut 0.5-3(2.5) mg/3 ml) 3 Ml Ampul.neb, 3 ML IH Q6H PRN for SHORTNESS OF BREATH, (Reported) Entered as Reported by: ALEXANDRA CAMPOS on 07/14/21 1147 Lisinopril (Lisinopril) 10 Mg Tablet, 10 MG PO DAILY, (Reported) Entered as Reported by: ALEXANDRA CAMPOS on 07/14/21 1147 Prednisone (Prednisone) 50 Mg Tab, 50 MG PO DAILY Prescribed by: HERLINDA NDIAYE on 07/17/21 1305 Sennosides (Senna) 8.6 Mg Tablet, 8.6 MG PO DAILY PRN for CONSTIPATION-5TH LINE, (Reported) Entered as Reported by: ALEXANDRA CAMPOS on 07/14/21 1147 Review of Systems Review of Systems Constitutional: see HPI, fever, malaise, weakness, weight gain EENTM: see HPI Respiratory: see HPI, cough, dyspnea on exertion, orthopnea, short of breath Cardiovascular: see HPI; No chest pain; edema Gastrointestinal: no symptoms reported; No abdominal pain, No nausea, No vomiting Genitourinary: no symptoms reported; No decreased output Musculoskeletal: see HPI Skin: no symptoms reported; No rash Psychiatric/Neurological: No Symptoms Reported Hematologic/Lymphatic: See HPI Immunological/Allergic: see HPI Past Idgxpmg-Pffcxa-Ocoudy Hx Patient Social History Tobacco Use?: Yes Tobacco type used: Cigarettes Substance use?: No Alcohol Use?: Yes Immunizations Up To Date Tetanus Booster (TDap): Unknown First/Initial COVID19 Vaccinat: SEPTEMBER 2020 Second COVID19 Vaccination Alexey: OCTOBER 2020 Third COVID19 Vaccination Date: 2020 Past Medical History Surgery/Hospitalization HX: HTN, COPD, HERNIA REPAIR, RIGHT LUNG MASS, Surgeries: Yes Abdominal, Eye Surgery Respiratory: Yes (METASTATIC LUNG CANCER-BRAIN AND SPINAL METS; CHRONIC RESP. 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) HEENT: Yes (DECREASED HEARING RIGHT EAR) Cataract Loss of Vision: Denies Cancer: Yes Brain, Bone, Lung Did You Recieve Any Treatments: Yes What Type of Treatment Did You: Chemotherapy LUNG CANCER WITH METS TO BRAIN AND SPINE, WITH SUPERIOR VENA CAVA SYNDROME Psychosocial: Yes Sleep Difficulties Integumentary: No Blood Disorders: No Family Medical History Heart Disease, Cancer, Diabetes SOCIAL HISTORY: -SMOKES 1 06/18 PPD--CLAIMS HE JUST QUIT, PER PT 10/15/21 -ETOH--"30 PACK EVERY 3 DAYS"--CLAIMS HE JUST QUIT, PER PT 10/15/21 -DRUGS--DENIES USE PAST SURGICAL HISTORY: -CHEST TUBE FOR PNEUMOTHORAX 06/17/21 -CT GUIDED LUNG BIOPSY -PORT LEFT CHEST 07/2021 -BILATERAL INGUINAL HERNIA REPAIRS -BILATERAL CATARACT SURGERY Physical Exam Vital Signs Vital Signs - First Documented 10/15/21 09:25 Temp 37.2 Pulse 110 Resp 20 B/P (MAP) 136/86 (103) Pulse Ox 95 O2 Delivery Room Air Capillary Refill : Less Than 3 Seconds Height, Weight, BMI Height: 6'0" Weight: 169lbs. oz. 76.679171ju; 28.00 BMI Method:Stated General Appearance: WD/WN, Other (MILDLY DYSPNEIC, VOICE RASPY) HEENT: PERRL/EOMI, TMs Normal, Pharynx Normal; No Pharyngeal Erythema, No Tonsillar Exudate; Other (MODERATE PERIORBITAL EDEMA, AND LOWER FACIAL EDEMA; EDENTULOUS. TONGUE COATED BROWN. ) Neck: JVD (BILATERAL ), Other (SIGNIFICANT EDEMA TO NECK) Respiratory: Accessory Muscle Use, Decreased Breath Sounds, Other (DECREASED AERATION ON RIGHT , WITH RALES/RHONCHI ON LEFT. UPPER AIRWAY NOISE/WHEEZING WITH HOARSE / RASPY VOICE. ) Cardiovascular: No Murmur, Tachycardia (110 ON ARRIVAL) Gastrointestinal: Non Tender, Soft Back: No CVA Tenderness Extremity: Normal Capillary Refill, Pedal Edema, Other (PT WITH 3+ PITTING EDEMA TO RIGHT ARM, TRACE EDEMA TO LEFT ARM. 2+ EDEMA TO BILATERAL LEGS. NO CALF TENDERNESS. ) Neurologic/Psychiatric: Alert, Oriented x3 (BUT MEMORY SOMEWHAT LIMITED), No Motor/Sensory Deficits, Normal Mood/Affect, internet designer II-XII Norm as Tested Skin: Normal Color, Warm/Dry, Other (EXTENSIVE VARICOSITIES TO UPPER CHEST ) Focused Exam Sepsis Stage: Sepsis Possible Source: Unknown Lactate Level 10/15/21 09:30: Lactic Acid Level 2.17*H Time of Focused Exam: 11:00 Respiratory: Other (INCREASED AERATION, DECREASED RALES/RHONCHI AND SLIGHT DECREASE IN COUGH. ) Cardiovascular: Regular Rate, Rhythm Capillary Refill: Less Than 3 Seconds Skin: normal color, warm/dry Lactic Acid Level Laboratory Tests Test 10/15/21 09:30 Lactic Acid Level 2.17 MMOL/L (0.50-2.00) *H Within 3hrs of presentation: Admin ABX, Blood cultures prior to ABX's, Focus exam, Lactate level, Other (FLUIDS HELD DUE TO SIGNFICANT EDEMA ALREADY PRESENT, AND NO HYPOTENSION. ) Progress/Results/Core Measures Suspected Sepsis SIRS Temperature: Pulse: 110 Respiratory Rate: 20 Laboratory Tests 10/15/21 09:30: White Blood Count 3.3L Blood Pressure 136 /86 Mean: 103 10/15/21 09:30: Lactic Acid Level 2.17*H Laboratory Tests 10/15/21 09:30: Creatinine 0.73, INR Comment 1.0, Platelet Count 226, Total Bilirubin 0.7 Results/Orders Lab Results Laboratory Tests Test 10/15/21 09:30 10/15/21 10:33 Range/Units White Blood Count 3.3 L 4.3-11.0 10^3/uL Red Blood Count 2.75 L 4.30-5.52 10^6/uL Hemoglobin 9.0 L 13.3-17.7 g/dL Hematocrit 25 L 40-54 % Mean Corpuscular Volume 90 80-99 fL Mean Corpuscular Hemoglobin 33 25-34 pg Mean Corpuscular Hemoglobin Concent 36 32-36 g/dL Red Cell Distribution Width 18.3 H 10.0-14.5 % Platelet Count 226 130-400 10^3/uL Mean Platelet Volume 9.5 9.0-12.2 fL Immature Granulocyte % (Auto) 1 % Neutrophils (%) (Auto) 63 42-75 % Lymphocytes (%) (Auto) 13 12-44 % Monocytes (%) (Auto) 22 H 0-12 % Eosinophils (%) (Auto) 1 0-10 % Basophils (%) (Auto) 1 0-10 % Neutrophils # (Auto) 2.1 1.8-7.8 10^3/uL Lymphocytes # (Auto) 0.4 L 1.0-4.0 10^3/uL Monocytes # (Auto) 0.7 0.0-1.0 10^3/uL Eosinophils # (Auto) 0.0 0.0-0.3 10^3/uL Basophils # (Auto) 0.0 0.0-0.1 10^3/uL Immature Granulocyte # (Auto) 0.0 0.0-0.1 10^3/uL Neutrophils % (Manual) 67 % Lymphocytes % (Manual) 13 % Monocytes % (Manual) 15 % Eosinophils % (Manual) 1 % Basophils % (Manual) 1 % Atypical Lymphocytes 1 % Reactive Lymphocytes 2 % Anisocytosis MODERATE Macrocytosis SLIGHT Prothrombin Time 13.7 12.2-14.7 SEC INR Comment 1.0 0.8-1.4 Activated Partial Thromboplast Time 35 24-35 SEC Sodium Level 121 *L 135-145 MMOL/L Potassium Level 3.5 L 3.6-5.0 MMOL/L Chloride Level 85 L 98-107 MMOL/L Carbon Dioxide Level 23 21-32 MMOL/L Anion Gap 13 5-14 MMOL/L Blood Urea Nitrogen 9 7-18 MG/DL Creatinine 0.73 0.60-1.30 MG/DL Estimat Glomerular Filtration Rate 104 BUN/Creatinine Ratio 12 Glucose Level 115 H 70-105 MG/DL Lactic Acid Level 2.17 *H 0.50-2.00 MMOL/L Calcium Level 8.4 L 8.5-10.1 MG/DL Corrected Calcium 9.0 8.5-10.1 MG/DL Total Bilirubin 0.7 0.1-1.0 MG/DL Aspartate Amino Transf (AST/SGOT) 23 5-34 U/L Alanine Aminotransferase (ALT/SGPT) 14 0-55 U/L Alkaline Phosphatase 51 40-136 U/L Total Protein 5.8 L 6.4-8.2 GM/DL Albumin 3.3 3.2-4.5 GM/DL Procalcitonin 0.11 H <0.10 NG/ML Monoscreen NEGATIVE NEGATIVE Influenza Type A (RT-PCR) Not Detected Not Detecte Influenza Type B (RT-PCR) Not Detected Not Detecte SARS-CoV-2 RNA (RT-PCR) Not Detected Not Detecte Group A Streptococcus Screen NEGATIVE NEGATIVE Urine Color YELLOW Urine Clarity CLEAR Urine pH 6.0 5-9 Urine Specific [place] 1.010 L 1.016-1.022 Urine Protein NEGATIVE NEGATIVE Urine Glucose (UA) NEGATIVE NEGATIVE Urine Ketones NEGATIVE NEGATIVE Urine Nitrite NEGATIVE NEGATIVE Urine Bilirubin NEGATIVE NEGATIVE Urine Urobilinogen 0.2 < = 1.0 MG/DL Urine Leukocyte Esterase NEGATIVE NEGATIVE Urine RBC (Auto) NEGATIVE NEGATIVE Urine RBC RARE /HPF Urine WBC RARE /HPF Urine Crystals NONE /LPF Urine Bacteria NEGATIVE /HPF Urine Casts PRESENT /LPF Urine Hyaline Casts 0-2 H /LPF Urine Mucus NEGATIVE /LPF Urine Culture Indicated CULTURE PENDING My Orders Orders - LEELA ANDREWS DO Ed Iv/Invasive Line Start (10/15/21:31) Monitor-Rhythm Ecg Trace Only (10/15/21:) Chest 1 View, Ap/Pa Only (10/15/21:) Monotest (10/15/21:) Rapid Strep A Screen (10/15/21:) Ua Culture If Indicated (10/15/21:) Cbc With Automated Diff (10/15/21:) Comprehensive Metabolic Panel (10/15/21) Procalcitonin (Pct) (10/15/21:31) Blood Culture (10/15/21:31) Covid 19 Inhouse Test (10/15/21:) Urine Culture (10/15/21:31) Protime With Inr (10/15/21:) Partial Thromboplastin Time (10/15/21:31) Ed Iv/Invasive Line Start (10/15/21:31) Vital Signs Adult Sepsis Patie Q15M (10/15/21:31) O2 (10/15/21:31) Remove Rings In Anticipation O (10/15/21:31) Lactic Acid Analyzer (10/15/21:31) Influenza A And B By Pcr (10/15/21:) Isolation Central Supply Req (10/15/21:31) Ed Iv/Invasive Line Start (5/1/22 09:31) Ns Iv 1000 Ml (Sodium Chloride 0.9%) (10/15/21 09:45) Manual Differential (10/15/21 09:30) Albuterol/Ipra Inhalation Soln (Duoneb I (10/15/21 10:30) Dexamethasone Injection (Decadron Injec (10/15/21 10:30) Rt Request For Service (10/15/21 10:29) Svn Small Volume Nebulizer (10/15/21 10:29) Cefepime Injection (Maxipime Injection) (10/15/21 11:30) Ed Admission (Communication) (10/15/21 11:20) Medications Given in ED Current Medications Medications Dose Ordered Sig/Milo Route Start Time Stop Time Status Last Admin Dose Admin Albuterol/ Ipratropium 3 ml ONCE ONCE INH 10/15/21 10:30 10/15/21 10:31 DC 10/15/21 10:40 3 ML Dexamethasone Sodium Phosphate 20 mg ONCE ONCE IH 10/15/21 10:30 10/15/21 10:31 DC 10/15/21 10:55 20 MG Vital Signs/I&O 10/15/21 10/15/21 10/15/21 10/15/21 09:25 09:25 10:41 10:56 Temp 37.2 Pulse 110 Resp 20 B/P (MAP) 136/86 (103) Pulse Ox 95 100 100 O2 Delivery Room Air Room Air Room Air Room Air Capillary Refill : Less Than 3 Seconds Blood Pressure Mean: 103 Progress Note : Progress Note SEPSIS PROTOCOL INITIATED NO DETERIORATION IN PT'S CONDITION DURING ER STAY O2 SATS UP TO 100% ON ROOM AIR GIVEN DUE NEB TREATMENT WITH IMPROVEMENT IN SYMPTOMS Diagnostic Imaging Comments CXR--PER RADIOLOGIST REPORT AT 1029 FINDINGS: There may be a small right pleural effusion with atelectasis. There is elevation of the right hemidiaphragm. There is a left sided Port-A-Cath with the tip projecting over the upper SVC. The cardiac silhouette is normal in size. There is chronic opacity projecting over the right upper lobe which corresponds with consolidation along the azygos fissure. IMPRESSION: 1. Minimal right pleural effusion with atelectasis. Stable elevation of the right hemidiaphragm. 2. Unchanged consolidation along the right azygos fissure. Reviewed: Reviewed by Me Departure Communication (Admissions) 0936--DISCUSSED WITH DR. GALVEZ, HOSPITALIST. WILL CALL HER BACK WHEN TESTS ARE COMPLETE 1115--SPOKE WITH DR. GALVEZ, ACCEPTS PT FOR ADMIT. SHE WILL DO ADMIT ORDERS Impression Primary Impression: Sepsis Additional Impressions: Metastatic lung cancer (metastasis from lung to other site) Superior vena cava syndrome Anasarca Hyponatremia Neutropenia Anemia COPD (chronic obstructive pulmonary disease) Chronic cough Heavy smoker (more than 20 cigarettes per day) Superior vena cava obstruction Disposition: ADMITTED INPATIENT Condition: Stable Admissions Decision to Admit Reason: Admit from ER (General) Decision to Admit/Date: October 15, 2021 Time/Decision to Admit Time: 11:15 Departure-Patient Inst. Referrals: [facility]/KAYLAH (PCP) Primary Care Physician ANTOINETTE TOVAR (Family) Primary Care Physician LEELA ANDREWS DO October 15, 2021 10:09
[2021-10-15 10:11] LABS: CREATININE SERUM 0.73 MG/DL (0.60-1.30)
--- NOTE | 2021-10-15 10:24 | Diagnostic Imaging Report ---
HISTORY: Fever TECHNIQUE: Frontal view of the chest. COMPARISON: 10/12/2021 FINDINGS: There may be a small right pleural effusion with atelectasis. There is elevation of the right hemidiaphragm. There is a left sided Port-A-Cath with the tip projecting over the upper SVC. The cardiac silhouette is normal in size. There is chronic opacity projecting over the right upper lobe which corresponds with consolidation along the azygos fissure. IMPRESSION: 1. Minimal right pleural effusion with atelectasis. Stable elevation of the right hemidiaphragm. 2. Unchanged consolidation along the right azygos fissure. Dictated by: Dictated on workstation # [id number]
[2021-10-15] MEDS ORDERED: RT-ALBUTEROL/IPRATROPIUM 3 ML (DUONEB) VIAL INH ONE (10:30)
[2021-10-15 10:39] LABS: BILIRUBIN,URINE NEGATIVE (NEGATIVE); CLARITY,URINE CLEAR; COLOR,URINE YELLOW; GLUCOSE, URINE (UA) NEGATIVE (NEGATIVE); KETONES,URINE NEGATIVE (NEGATIVE); LEUKOCYTE ESTERASE ,URINE NEGATIVE (NEGATIVE); NITRITE,URINE NEGATIVE (NEGATIVE); PROTEIN,URINE NEGATIVE (NEGATIVE)
[2021-10-15 10:53] LABS: BACTERIA,URINE NEGATIVE /HPF; HYALINE CASTS, URINE 0-2 /LPF; RBC,URINE RARE /HPF; WBC,URINE RARE /HPF
[2021-10-15 11:03] LABS: ANISOCYTOSIS MODERATE; ATYPICAL LYMPHOCYTES 1 %; BASOPHILS % (MANUAL) 1 %; EOSINOPHILS % (MANUAL) 1 %; LYMPHOCYTES % (MANUAL) 13 %; MONOCYTES % (MANUAL) 15 %; NEUTROPHILS % (MANUAL) 67 %; REACTIVE LYMPHOCYTES 2 %
[2021-10-15] MEDS ORDERED: CEFEPIME INJECTION 1,000 MG in NS (IVPB) 50 ML IV ONE (11:30)
[2021-10-15] MEDS ORDERED: VANCOMYCIN INJECTION 1,000 MG in NS (IVPB) 250 ML IV ONE (11:30)
--- NOTE | 2021-10-15 11:34 | History & Physical-Hospitalist ---
History of Present Illness HPI/Chief Complaint Chief complaint: Fever History of present illness: This is a 61-year-old white male known to this provider due to multiple hospital stays who has a history of lung cancer last chemotherapy [address] Alvarez and right-sided superior vena cava syndrome who resides at [facility] rehab who presented to the ER when his brother brought him in due to fever. Patient did not appear to have a source but upper respiratory is suspected so he was placed on broad-spectrum antibiotics due to facility acquired infection presumed and hyponatremia will be managed with fluid restriction and sodium tablets. Source: patient Exam Limitations: no limitations Date Seen 10/15/21 Time Seen by a Provider: 13:00 Attending Physician [facility] Referring Physician Date of Admission Home Medications & Allergies Home Medications Reviewed patient Home Medication Reconciliation performed by pharmacy medication reconciliations test lab technician and/or nursing. Patients Allergies have been reviewed. Allergies Allergies Coded Allergies Penicillins (Verified Allergy, Unknown, 07/26/21) melatonin (Verified Allergy, Unknown, 07/26/21) Past Qatszoy-Qpxpkx-Sbwopn Hx Patient Social History Marrital Status: single Employed/Student: unemployed Smoking Status: Current Everyday Smoker Immunizations Up To Date Date of Influenza Vaccine: May 24, 2022 First/Initial COVID19 Vaccinat: SEPTEMBER 2020 Second COVID19 Vaccination Alexey: OCTOBER 2020 Tetanus Booster (TDap): Unknown Current Status Communicates: Verbally Primary Language: Danish Preferred Spoken Language: Danish Is interpretation needed?: No Past Medical History Surgeries: Abdominal, Eye Surgery COPD, Emphysema Currently Using CPAP: No Currently Using BIPAP: No Hypertension Paralysis Abdominal Hernia Cataract Loss of Vision: Denies Hearing Impairment: Denies Brain, Lung Did You Recieve Any Treatments: Yes What Type of Treatment Did You: Chemotherapy Sleep Difficulties Blood Disorders: No Family Medical History Heart Disease, Cancer, Diabetes SOCIAL HISTORY: -SMOKES 1 1/2 PPD -ETOH--"30 PACK EVERY 3 DAYS" -DRUGS--DENIES USE Review of Systems Constitutional: see HPI, fever, malaise, weakness EENTM: no symptoms reported Respiratory: cough, dyspnea on exertion Cardiovascular: no symptoms reported Gastrointestinal: no symptoms reported Genitourinary: no symptoms reported Musculoskeletal: no symptoms reported Skin: no symptoms reported Psychiatric/Neurological: No Symptoms Reported All Other Systems Reviewed Negative Unless Noted: Yes Physical Exam Physical Exam Vital Signs Vital Signs - First Documented 10/15/21 10/15/21 09:25 15:35 Temp 37.2 Pulse 110 Resp 20 B/P (MAP) 136/86 (103) Pulse Ox 95 O2 Delivery Room Air O2 Flow Rate 2.00 Capillary Refill : Less Than 3 Seconds Height, Weight, BMI Height: 6'0" Weight: 169lbs. oz. 76.778692xx; 28.00 BMI Method:Stated General Appearance: No Apparent Distress, Chronically ill Eyes: Right Eye Normal Inspection, Right Eye PERRL HEENT: PERRL/EOMI, Normal ENT Inspection, Pharynx Normal, Moist Mucous Membranes Neck: Full Range of Motion, Normal Inspection, Non Tender Respiratory: Chest Non Tender, Normal Breath Sounds, No Accessory Muscle Use, No Respiratory Distress, Decreased Breath Sounds Cardiovascular: Regular Rate, Rhythm, No Edema, No Gallop, No JVD, No Murmur, Normal Peripheral Pulses Gastrointestinal: Normal Bowel Sounds, No Organomegaly, No Pulsatile Mass, Non Tender, Soft Back: Normal Inspection, No CVA Tenderness, No Vertebral Tenderness Extremity: Normal Capillary Refill, Normal Inspection, Normal Range of Motion, Non Tender, No Calf Tenderness, No Pedal Edema Neurologic/Psychiatric: Alert, Oriented x3, No Motor/Sensory Deficits, Normal Mood/Affect Skin: Normal Color, Warm/Dry Lymphatic: No Adenopathy Results Results/Procedures Labs Laboratory Tests 10/15/21 09:30 10/16/21 05:01 Patient resulted labs reviewed. 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
[2021-10-15] MEDS ORDERED: VANCOMYCIN 1,750 MG/NS 500 ML IVPB IV NR ×2 (12:30)
[2021-10-15] MEDS ORDERED: VANCOMYCIN INJECTION 750 MG in NS (IVPB) 250 ML IV ONE (12:30)
[2021-10-15] MEDS ORDERED: PATIENT MAY USE OWN MEDS, ALL PO SCH (13:00)
[2021-10-15] MEDS ORDERED: VANCOMYCIN INJECTION 0.1 MG in NS (IVPB) 250 ML IV SCH (13:00)
[2021-10-15] MEDS ORDERED: morphine INJ 4 MG/ML 1 ML (VIAL/SYRINGE) IV PRN (13:00)
[2021-10-15] MEDS ORDERED: polyethylene glycoL POWDER 17 GM (MIRALAX) PACK PO PRN (13:00)
[2021-10-15] MEDS ORDERED: diphenhydrAMINE 50 MG/ML INJ (BENADRYL) IVP PRN (13:00)
[2021-10-15] MEDS ORDERED: ACETAMINOPHEN 325 MG TABLET PO PRN (13:00)
[2021-10-15] MEDS ORDERED: ANTACID SUSP 30 ML UDC (MYLANTA) PO PRN (13:00)
[2021-10-15] MEDS ORDERED: MILK OF MAGNESIA 400 MG/5 ML 30 ML UDC PO PRN (13:00)
[2021-10-15] MEDS ORDERED: diphenhydrAMINE 25 MG TAB (BENADRYL) PO PRN (13:00)
[2021-10-15] MEDS ORDERED: CALCIUM CARBONATE 500 MG (TUMS) TAB.CHEW PO PRN (13:00)
[2021-10-15] MEDS ORDERED: LACTULOSE SYRUP 10GM/15ML (ENULOSE) 30ML UDC PO PRN (13:00)
[2021-10-15] MEDS ORDERED: BISACODYL 10 MG SUPP (DULCOLAX) PR PRN (13:00)
[2021-10-15] MEDS ORDERED: ONDANSETRON 4 MG (ZOFRAN) ORAL DISSOLVE TAB PO PRN (13:00)
[2021-10-15] MEDS ORDERED: ONDANSETRON 4 MG/2 ML (SDV) Z0FRAN IV PRN (13:00)
[2021-10-15] MEDS: ENOXAPARIN 100 MG/1 ML (LOVENOX) SYR SC SCH (14:20)
[2021-10-15] MEDS: SODIUM CHLORIDE 1 GM TABLET PO SCH ×2 (14:20→21:23)
[2021-10-15] MEDS ORDERED: RT-ALBUTEROL/IPRATROPIUM 3 ML (DUONEB) VIAL INH PRN (15:30)
[2021-10-15 15:35] VITALS: BP 114/72
[2021-10-15] MEDS: RT-ALBUTEROL/IPRATROPIUM 3 ML (DUONEB) VIAL INH SCH ×2 (18:44→22:02)
[2021-10-15 20:00] VITALS: BP 99/54
[2021-10-15] MEDS: VANCOMYCIN 1250 MG/NS 250 ML IVPB IV SCH ×2 (20:44)
[2021-10-15] MEDS ORDERED: CYCLOBENZAPRINE 10 MG (FLEXERIL) TAB PO PRN (20:45)
[2021-10-15] MEDS ORDERED: SENNOSIDES 8.6 MG (SENOKOT) TAB PO PRN (20:45)
[2021-10-15] MEDS ORDERED: guaiFENesin SYRUP 100 MG/5 ML 10 ML (ROBITUSSIN SF) PO PRN (20:45)
[2021-10-15] MEDS: DOCUSATE SODIUM 100 MG (COLACE) CAP PO SCH (20:45)
[2021-10-15] MEDS: SENNOSIDES 8.6 MG (SENOKOT) TAB PO SCH ×2 (20:45→21:25)
[2021-10-15] MEDS: FLUTICASONE NASAL SPRAY (FLONASE) 16 GM BTL NS SCH (21:00)
[2021-10-15] MEDS: BENZONATATE 100 MG (TESSALON) CAPSULE PO SCH (21:23)
[2021-10-15] MEDS: HYDROcodone/APAP 5 MG/325 MG (LORTAB) TAB PO PRN (21:24)
[2021-10-15] MEDS: CEFEPIME INJECTION 1,000 MG in NS (IVPB) 50 ML IV SCH (21:26)
[2021-10-16] VITALS (7 sets, daily range): BP systolic 103–138; BP diastolic 56–68
[2021-10-16] MEDS: ENOXAPARIN 100 MG/1 ML (LOVENOX) SYR SC SCH ×3 (00:54→23:37)
[2021-10-16] MEDS: RT-ALBUTEROL/IPRATROPIUM 3 ML (DUONEB) VIAL INH SCH ×6 (03:43→21:52)
[2021-10-16 05:14] LABS: BASOPHILS % (AUTO) 1 % (0-10); EOSINOPHILS % (AUTO) 1 % (0-10); HEMATOCRIT 21 % (40-54); HEMOGLOBIN 7.7 g/dL (13.3-17.7); LYMPHOCYTES # (AUTO) 0.4 10^3/uL (1.0-4.0); LYMPHOCYTES % (AUTO) 13 % (12-44); MEAN CORPUSCULAR HEMOGLOBIN 33 pg (25-34); MEAN CORPUSCULAR HGB CONC 36 g/dL (32-36); MEAN CORPUSCULAR VOLUME 91 fL (80-99); MEAN PLATELET VOLUME 9.3 fL (9.0-12.2); MONOCYTES # (AUTO) 0.7 10^3/uL (0.0-1.0); MONOCYTES % (AUTO) 25 % (0-12); NEUTROPHILS # (AUTO) 1.6 10^3/uL (1.8-7.8); NEUTROPHILS % (AUTO) 59 % (42-75); PLATELET COUNT 194 10^3/uL (130-400); WHITE BLOOD COUNT 2.7 10^3/uL (4.3-11.0)
[2021-10-16 05:26] LABS: ALBUMIN 3.1 GM/DL (3.2-4.5); POTASSIUM 3.3 MMOL/L (3.6-5.0)
[2021-10-16 05:27] LABS: CALCIUM 8.3 MG/DL (8.5-10.1)
[2021-10-16 05:29] LABS: TOTAL PROTEIN 5.3 GM/DL (6.4-8.2)
[2021-10-16 05:30] LABS: BILIRUBIN,TOTAL 0.7 MG/DL (0.1-1.0)
[2021-10-16 05:32] LABS: CREATININE SERUM 0.73 MG/DL (0.60-1.30)
--- NOTE | 2021-10-16 06:13 | Progress Note - Hospitalist ---
Subjective HPI/CC On Admission Date Seen by Provider: October 16, 2021 Time Seen by Provider: 09:30 Chief complaint: Fever History of present illness: This is a 61-year-old white male known to this provider due to multiple hospital stays who has a history of lung cancer last chemotherapy [address] Alvarez and right-sided superior vena cava syndrome who resides at [facility] re[facility] who presented to the ER when his brother brought him in due to fever. Patient did not appear to have a source but upper respiratory is suspected so he was placed on broad-spectrum antibiotics due to facility acquired infection presumed and hyponatremia will be managed with fluid restriction and sodium tablets. Subjective/Events-last exam Patient doing a lot better Sodium level 124 Checked meds labs No pain is reported Cough is still an issue Palliative care recommended Review of Systems General: Fatigue Pulmonary: Dyspnea, Cough Focused Exam Lactate Level 10/15/21 09:30: Lactic Acid Level 2.17*H 10/15/21 11:45: Lactic Acid Level 1.72 Time of Focused Exam: 1100 Objective Exam Vital Signs Vital Signs Date Time Temp Pulse Resp B/P (MAP) Pulse Ox O2 Delivery O2 Flow Rate FiO2 10/16/21 10:39 98 Nasal Cannula 2.00 10/16/21 07:30 37.2 102 18 108/65 (79) Capillary Refill : Less Than 3 Seconds General Appearance: No Apparent Distress, WD/WN Respiratory: No Accessory Muscle Use, No Respiratory Distress, Decreased Breath Sounds Cardiovascular: Regular Rate, Rhythm Neurologic/Psychiatric: Alert, Oriented x3, No Motor/Sensory Deficits, Normal Mood/Affect Results/Procedures Lab Laboratory Tests 10/16/21 05:01 Patient resulted labs reviewed. Assessment/Plan Assessment and Plan Assess & Plan/Chief Complaint Assessment: Fever with Neutropenia Immunosuppression from chemotherapy 2 weeks ago Lung cancer Right-sided superior vena cava syndrome DVT prophylaxis COPD Hyponatremia Plan: Broad-spectrum antibiotics Lovenox Fluid restriction Salt tablets 10/16/2021: Supportive care IV antibiotics Fluid restriction Salt tablets Diagnosis/Problems Diagnosis/Problems (1) Metastatic lung cancer (metastasis from lung to other site) Status: Acute (2) COPD (chronic obstructive pulmonary disease) Status: Chronic (3) Hyponatremia Status: Acute JESSICA GALVEZ DO October 16, 2021 06:13
[2021-10-16] MEDS: HYDROcodone/APAP 5 MG/325 MG (LORTAB) TAB PO PRN ×2 (06:28→15:40)
[2021-10-16] MEDS: lisINopril 10 MG (PRINIVIL) TABLET PO SCH (09:15)
[2021-10-16] MEDS: BENZONATATE 100 MG (TESSALON) CAPSULE PO SCH ×3 (09:15→20:47)
[2021-10-16] MEDS: DOCUSATE SODIUM 100 MG (COLACE) CAP PO SCH ×2 (09:15→20:32)
[2021-10-16] MEDS: LORATADINE (CLARITIN) 10 MG TAB PO SCH (09:15)
[2021-10-16] MEDS: FUROSEMIDE 40 MG/4 ML INJ (LASIX) IVP SCH (09:16)
[2021-10-16] MEDS: CEFEPIME INJECTION 1,000 MG in NS (IVPB) 50 ML IV SCH ×4 (09:16→23:37)
[2021-10-16] MEDS: SENNOSIDES 8.6 MG (SENOKOT) TAB PO SCH ×2 (09:17→20:32)
[2021-10-16] MEDS: SODIUM CHLORIDE 1 GM TABLET PO SCH ×2 (09:18→20:47)
[2021-10-16] MEDS: FLUTICASONE NASAL SPRAY (FLONASE) 16 GM BTL NS SCH ×2 (09:21→20:47)
--- NOTE | 2021-10-16 09:40 | Physical Therapy Evaluation ---
PT Evaluation-General Medical Diagnosis Admission Date October 15, 2021 at 11:21 Medical Diagnosis: sepsis Onset Date: October 15, 2021 Therapy Diagnosis Therapy Diagnosis: debility/weakness Height/Weight Height (Feet): 6 Height (Inches): 0 Weight (Pounds): 169 Precautions Precautions/Isolations: Fall Prevention Weight Bear Status Right Lower Extremity: Right Non Weight Bearing Left Lower Extremity: Left Non Weight Bearing Referral Physician: Sacha Reason for Referral: Evaluation/Treatment Medical History Pertinent Medical History: COPD, HTN, Smoking Additional Medical History metastatic lung cancer with mets to brain Current History ER secondary to face sweeling, fever, sore throat, 22# weight gain Reviewed History: Yes Social History Home: Detention Prior Prior Level of Function SCALE: Activities may be completed with or without assistive devices. 7-Rqatfsbdgh-twgmrfj completes the activity by him/herself with no assistance from a helper. 5-Set-up or Clean-up Assistance-helper sets up or cleans up; patient completes activity. [place] assists only prior to or following the activity. 4-Supervision or Touching Assistance-helper provides verbal cues and/or touching/steadying and/or contact guard assistance as patient completes activity. Assistance may be provided throughout the activity or intermittently. 3-Partial/Moderate Assistance-helper does LESS THAN HALF the effort. [place] lifts, holds or supports trunk or limbs, but provides less than half the effort. 2-Substantial/Maximal Assistance-helper does MORE THAN HALF the effort. [place] lifts or holds trunk or limbs and provides more than half the effort. 3-Thqxwqzhq-wcprxj does ALL the effort. Patient does none of the effort to complete the activity. Or, the assistance of 2 or more helpers is required for the patient to complete the activity. If activity was not attempted, code reason: 7-Patient Refused. 9-Not Applicable-not attempted and the patient did not perform the activity before the current illness, exacerbation or injury. 10-Not Attempted due to Environmental Limitations-(lack of equipment, weather restraints, etc.). 88-Not Attempted due to Medical Conditions or Safety Concerns. Bed Mobility: 6 Transfers (B,C,W/C): 6 Gait: 6 Indoor Mobility (Ambulation): Independent Prior Devices Use: Walker PT Evaluation-Current Subjective Patient agrees to PT. No c/o at this time. Objective Patient Orientation: Person, Time, Situation Attachments: IV ROM/Strength ROM Lower Extremities bilateral LE WFL Strength Lower Extremities 4/5 grossly bilateral LE Integumentary/Posture Bowel Incontinence: No Bladder Incontinence: No Posture kyphotic Neuromuscular (Tone, Coordination, Reflexes) grossly intact Sensory Vision: Functional Hearing: Functional Transfers Roll Left to Right (QC): 6 Lying to Sitting/Side of Bed(Q: 6 Sit to Stand (QC): 4 Chair/Eku-zc-Kgzwo Xfer(QC): 4 Gait Mode of Locomotion: Walk Anticipated Mode of Locomotion: Walk Walk 10 feet (QC): 4 Walk 50 ft with 2 Turns(QC): 4 Walk 150 ft (QC): 4 Distance: 250' Gait Assistive Device: FWW Comments/Gait Description extended UE's with FWW use (steady gait sequence) Balance Sitting Static: Normal Sitting Dynamic: Normal Standing Static: Normal Standing Dynamic: Normal Assessment/Needs 61 y.o. male, will be seen short term by skilled PT to address functional mobility to ensure safe return to NH at maximum LOF. Chair alarm activated for patient safety. Rehab Potential: Guarded PT Steam Cleaning Machine Operator Goals Steam Cleaning Machine Operator Goals PT Steam Cleaning Machine Operator Goals Time Frame: October 21, 2021 Roll Left & Right (QC): 6 Sit to Lying (QC): 6 Lying-Sitting on Side/Bed(QC): 6 Sit to Stand (QC): 6 Chair/Umm-zx-Blqhs Xfer(QC): 6 Walk 10 feet (QC): 5 Walk 50ft with 2 Turns (QC): 5 Walk 150 ft (QC): 5 PT Plan Problem List Problem List: Activity Tolerance, Safety Treatment/Plan Treatment Plan: Continue Plan of Care Treatment Plan: Education, Functional Activity Yulissa, Functional Strength, Gait, Safety, Therapeutic Exercise, Transfers Treatment Duration: October 21, 2021 Frequency: 6 times per week Estimated Hrs Per Day: .25 hour per day Patient and/or Family Agrees t: Yes Time/GCodes Time In: 816 Time Out: 830 Total Billed Treatment Time: 14 Total Billed Treatment 1 visit EVModC 14 min LEANDRO PHILLIPS PT October 16, 2021 09:40
[2021-10-16] MEDS ORDERED: CHLORASEPTIC LOZENGE MM PRN (09:45)
--- NOTE | 2021-10-16 09:58 | Occupational Therapy Eval ---
OT Evaluation-General/PLF Medical Diagnosis Admission Date October 15, 2021 at 11:21 Medical Diagnosis: sepsis Onset Date: October 15, 2021 Therapy Diagnosis Therapy Diagnosis: decreased ADL status Height/Weight Height (Feet): 6 Height (Inches): 0 Weight (Pounds): 169 Precautions Precautions/Isolations: Fall Prevention Referral Physician: Sacha Jo Reason: Evaluation/Treatment Medical History Pertinent Medical History: COPD, HTN, Smoking Additional Medical History lung cancer (last chemo 2 weeks ago), COPD, HTN, Paralysis Current History ED due to fever. Social History Home: Half-Way ADL-Prior Level of Function SCALE: Activities may be completed with or without assistive devices. 0-Ilrbvhsgmu-qzepprd completes the activity by him/herself with no assistance from a helper. 5-Set-up or Clean-up Assistance-helper sets up or cleans up; patient completes activity. [place] assists only prior to or following the activity. 4-Supervision or Touching Assistance-helper provides verbal cues and/or touching/steadying and/or contact guard assistance as patient completes activity. Assistance may be provided throughout the activity or intermittently. 3-Partial/Moderate Assistance-helper does LESS THAN HALF the effort. [place] lifts, holds or supports trunk or limbs, but provides less than half the effort. 2-Substantial/Maximal Assistance-helper does MORE THAN HALF the effort. [place] lifts or holds trunk or limbs and provides more than half the effort. 0-Ebamvflmk-qdcqub does ALL the effort. Patient does none of the effort to complete the activity. Or, the assistance of 2 or more helpers is required for the patient to complete the activity. If activity was not attempted, code reason: 7-Patient Refused. 9-Not Applicable-not attempted and the patient did not perform the activity before the current illness, exacerbation or injury. 10-Not Attempted due to Environmental Limitations-(lack of equipment, weather restraints, etc.). 88-Not Attempted due to Medical Conditions or Safety Concerns. ADL PLOF Comments Pt reports being independent with ADLs and functional mobility, no AD. He indicates he does have a w/c. Accuracy of information unknown at this time, but per OT evaluation/tx history from earlier this year, pt most likely requires SBA-IND with ADLs. Self Care: Unknown Functional Cognition: Unknown DME/Equipment: Bath Chair, Shower OT Current Status Subjective Pt in room, nurse present, pt using FWW to go into bathroom, agreeable to OT. Nurse reports pt fell last night. Mental Status/Objective Patient Orientation: Person, Situation Current Upper Extremity ROM WFL Upper Extremity Strength grossly 3+/5 ADL-Treatment Eating (QC): 6 Oral Hygiene (QC): 4 (per clinical judgment.) On/Off Footwear (QC): 7 Toileting Hygiene (QC): 4 Other Treatments Pt walking to bathroom with nursing staff, using FWW, SBA. Pt able to manage clothing and hygiene, Supervision. Pt returned to recliner SBA, provided information about PLOF and home set up. Pt states IND with meals, able to eat ice chips independently in session. Pt declined completing footwear at this time, due to LEs being wrapped with acewraps, pt reports no concerns with completing footwear. Pt's nurse providing medication, all needs met, call light in reach and chair alarm activated post tx. Education OT Patient Education: Correct positioning, Exercise program, Modified ADL techniques, Progress toward Goal/Update tx plan, Purpose of tx/functional activities Teaching Recipient: Patient Teaching Methods: Discussion Response to Teaching: Verbalize Understanding OT Bilingual Teacher Assistant Goals Care Home Goals Time Frame: October 27, 2021 Eating (QC): 6 Oral Hygiene (QC): 6 Toileting Hygiene (QC): 6 Shower/Bathe Self (QC): 4 Upper Body Dressing (QC): 5 Lower Body Dressing (QC): 4 On/Off Footwear (QC): 4 Additional Goals: 1-Demonstrate ADL Tasks, 2-Verbalize Understanding, 3- ImproveStrength/Yulissa 1=Demonstrate adherence to instructed precautions during ADL tasks. 2=Patient will verbalize/demonstrate understanding of assistive devices/modifications for ADL. 3=Patient will improve strength/tolerance for activity to enable patient to perform ADL's. OT Education/Plan Problem List/Assessment Assessment: Decreased Activ Tolerance, Decreased UE Strength, Impaired Funct Balance, Impaired I ADL's, Impaired Self-Care Skills Discharge Recommendations Plan/Recommendations: Continue POC Treatment Plan/Plan of Care Patient would benefit from OT for education, treatment and training to promote independence in ADL's, mobility, safety and/or upper extremity function for ADL's. Plan of Care: ADL Retraining, Functional Mobility, UE Funct Exercise/Act Treatment Duration: October 27, 2021 Frequency: 3 times per week (3-5 times per week) Estimated Hrs Per Day: .25 hour per day Rehab Potential: Guarded Time/GCodes Start Time: 09:19 Stop Time: 09:29 Total Time Billed (hr/min): 10 Billed Treatment Time 1, MECHELLE GODWIN OT October 16, 2021 09:58
[2021-10-16] MEDS: VANCOMYCIN 1250 MG/NS 250 ML IVPB IV SCH ×4 (10:00→20:46)
[2021-10-17 00:12] VITALS: BP 127/58
[2021-10-17] MEDS: RT-ALBUTEROL/IPRATROPIUM 3 ML (DUONEB) VIAL INH SCH ×3 (02:32→10:12)
[2021-10-17 04:34] VITALS: BP 102/51
--- NOTE | 2021-10-17 05:19 | Progress Note - Hospitalist ---
Subjective HPI/CC On Admission Date Seen by Provider: October 17, 2021 Time Seen by Provider: 09:00 Chief complaint: Fever History of present illness: This is a 61-year-old white male known to this provider due to multiple hospital stays who has a history of lung cancer last chemotherapy [address] Alvarez and right-sided superior vena cava syndrome who resides at [facility] and rehab who presented to the ER when his brother brought him in due to fever. Patient did not appear to have a source but upper respiratory is suspected so he was placed on broad-spectrum antibiotics due to facility acquired infection presumed and hyponatremia will be managed with fluid restriction and sodium tablets. Focused Exam Lactate Level 10/15/21 09:30: Lactic Acid Level 2.17*H 10/15/21 11:45: Lactic Acid Level 1.72 Time of Focused Exam: 1100 Objective Exam Vital Signs Vital Signs Date Time Temp Pulse Resp B/P (MAP) Pulse Ox O2 Delivery O2 Flow Rate FiO2 10/17/21 12:22 37.2 80 20 108/66 96 Room Air 10/16/21 14:33 1.00 Capillary Refill : Less Than 3 Seconds Results/Procedures Lab Laboratory Tests 10/17/21 05:50 Patient resulted labs reviewed. Assessment/Plan Assessment and Plan Assess & Plan/Chief Complaint Assessment: Fever with Neutropenia Immunosuppression from chemotherapy 2 weeks ago Lung cancer Right-sided superior vena cava syndrome DVT prophylaxis COPD Hyponatremia Plan: Broad-spectrum antibiotics Lovenox Fluid restriction Salt tablets 10/16/2021: Supportive care IV antibiotics Fluid restriction Salt tablets Diagnosis/Problems Diagnosis/Problems (1) Metastatic lung cancer (metastasis from lung to other site) Status: Acute (2) COPD (chronic obstructive pulmonary disease) Status: Chronic (3) Hyponatremia Status: Acute JESSICA GALVEZ DO October 17, 2021 05:19
[2021-10-17] MEDS: CEFEPIME INJECTION 1,000 MG in NS (IVPB) 50 ML IV SCH ×2 (05:50→11:26)
[2021-10-17 06:06] LABS: BASOPHILS % (AUTO) 1 % (0-10); EOSINOPHILS # (AUTO) 0.1 10^3/uL (0.0-0.3); EOSINOPHILS % (AUTO) 2 % (0-10); HEMATOCRIT 23 % (40-54); LYMPHOCYTES # (AUTO) 0.5 10^3/uL (1.0-4.0); LYMPHOCYTES % (AUTO) 21 % (12-44); MEAN CORPUSCULAR HEMOGLOBIN 33 pg (25-34); MEAN CORPUSCULAR HGB CONC 36 g/dL (32-36); MEAN CORPUSCULAR VOLUME 92 fL (80-99); MONOCYTES # (AUTO) 0.7 10^3/uL (0.0-1.0); MONOCYTES % (AUTO) 31 % (0-12); NEUTROPHILS % (AUTO) 42 % (42-75); PLATELET COUNT 204 10^3/uL (130-400); WHITE BLOOD COUNT 2.4 10^3/uL (4.3-11.0)
[2021-10-17 06:23] LABS: POTASSIUM 3.7 MMOL/L (3.6-5.0)
[2021-10-17 06:24] LABS: CALCIUM 8.4 MG/DL (8.5-10.1)
[2021-10-17 06:26] LABS: TOTAL PROTEIN 5.3 GM/DL (6.4-8.2)
[2021-10-17 06:27] LABS: BILIRUBIN,TOTAL 0.6 MG/DL (0.1-1.0)
[2021-10-17 06:29] LABS: CREATININE SERUM 0.8 MG/DL (0.60-1.30)
[2021-10-17 07:47] VITALS: BP 113/61
[2021-10-17] MEDS ORDERED: TROUGH ORDER-PHARMACY XX ONE (08:00)
[2021-10-17] MEDS: BENZONATATE 100 MG (TESSALON) CAPSULE PO SCH (08:21)
[2021-10-17] MEDS: LORATADINE (CLARITIN) 10 MG TAB PO SCH (08:21)
[2021-10-17] MEDS: DOCUSATE SODIUM 100 MG (COLACE) CAP PO SCH (08:21)
[2021-10-17] MEDS: lisINopril 10 MG (PRINIVIL) TABLET PO SCH (08:21)
[2021-10-17] MEDS: SENNOSIDES 8.6 MG (SENOKOT) TAB PO SCH (08:22)
[2021-10-17] MEDS: FLUTICASONE NASAL SPRAY (FLONASE) 16 GM BTL NS SCH (08:22)
[2021-10-17] MEDS: FUROSEMIDE 40 MG/4 ML INJ (LASIX) IVP SCH (08:22)
[2021-10-17] MEDS: SODIUM CHLORIDE 1 GM TABLET PO SCH (08:30)
[2021-10-17] MEDS ORDERED: fluCOnazole (DIFLUCAN) 100 MG TAB PO SCH (09:15)
--- NOTE | 2021-10-17 09:55 | Physical Therapy Daily Note ---
PT Daily Note-Current Subjective Patient agrees to PT. Mental Status Patient Orientation: Confused Transfers SCALE: Activities may be completed with or without assistive devices. 9-Kuqkiomyzp-zazgevd completes the activity by him/herself with no assistance from a helper. 5-Set-up or Clean-up Assistance-helper sets up or cleans up; patient completes activity. [place] assists only prior to or following the activity. 4-Supervision or Touching Assistance-helper provides verbal cues and/or touching/steadying and/or contact guard assistance as patient completes activity. Assistance may be provided throughout the activity or intermittently. 3-Partial/Moderate Assistance-helper does LESS THAN HALF the effort. [place] lifts, holds or supports trunk or limbs, but provides less than half the effort. 2-Substantial/Maximal Assistance-helper does MORE THAN HALF the effort. [place] lifts or holds trunk or limbs and provides more than half the effort. 2-Wivgvbebj-cuhyqv does ALL the effort. Patient does none of the effort to complete the activity. Or, the assistance of 2 or more helpers is required for the patient to complete the activity. If activity was not attempted, code reason: 7-Patient Refused. 9-Not Applicable-not attempted and the patient did not perform the activity before the current illness, exacerbation or injury. 10-Not Attempted due to Environmental Limitations-(lack of equipment, weather restraints, etc.). 88-Not Attempted due to Medical Conditions or Safety Concerns. Lying to Sitting/Side of Bed(Q: 6 Sit to Stand (QC): 4 Chair/Lah-of-Knvhd Xfer(QC): 4 Weight Bearing Right Lower Extremity: Right Non Weight Bearing Left Lower Extremity: Left Non Weight Bearing Gait Training Distance: 500' Walk 10 feet (QC): 4 Walk 50 ft with 2 Turns(QC): 4 Walk 150 ft (QC): 4 Gait Assistive Device: FWW extended UE's with FWW use/2 standing recovery periods due to fatigue Assessment Patient is up in recliner with needs met. Patient ceases treatment due to wanting to watch TV. PT Alumni Relations Officer Goals Shelter Goals PT Shelter Goals Time Frame: October 21, 2021 Roll Left & Right (QC): 6 Sit to Lying (QC): 6 Lying-Sitting on Side/Bed(QC): 6 Sit to Stand (QC): 6 Chair/Ogq-tg-Qxikb Xfer(QC): 6 Walk 10 feet (QC): 5 Walk 50ft with 2 Turns (QC): 5 Walk 150 ft (QC): 5 PT Plan Treatment/Plan Treatment Plan: Continue Plan of Care Treatment Plan: Education, Functional Activity Yulissa, Functional Strength, Gait, Safety, Therapeutic Exercise, Transfers Treatment Duration: October 21, 2021 Frequency: 6 times per week Estimated Hrs Per Day: .25 hour per day Patient and/or Family Agrees t: Yes Time/GCodes Time In: 816 Time Out: 832 Total Billed Treatment Time: 16 Total Billed Treatment 1 visit FA 16 min LEANDRO PHILLIPS PT October 17, 2021 09:55
[2021-10-17] MEDS ORDERED: LINE600T12 PO (10:17)
[2021-10-17] MEDS ORDERED: CEFD300C3 PO (10:17)
[2021-10-17] MEDS ORDERED: FLUC100T10 PO (10:17)
[2021-10-17] MEDS ORDERED: NF-NACL1GT PO (10:17)
--- NOTE | 2021-10-17 10:18 | Discharge Summary ---
Discharge Summary Hospital Course Was the Problem List Reviewed?: Yes Problems/Dx: (1) Metastatic lung cancer (metastasis from lung to other site) Status: Acute (2) COPD (chronic obstructive pulmonary disease) Status: Chronic (3) Hyponatremia Status: Acute Hospital Course Date of Admission: October 15, 2021 at 11:21 Admission Diagnosis : Family Physician/Provider: Boom Harper Date of Discharge: 10/17/21 Discharge Diagnosis: Fever, bacterial bronchitis, hyponatremia, lung cancer Hospital Course: Pt had an uneventful hospital course for 3 days after he was admitted for sepsis fever of unknown origin, but then confirmed bacterial bronchitis. Chest x-ray revealed chronic findings. Neutropenia from chemotherapy 2 weeks ago places him at risk. Sodium level 121 did rise to 128 at time of discharge, and he was placed on salt tablets and fluid restriciton. He was counseled for fluid restriction at discharge. He will complete Zyvox and Omnicef at discharge. Labs and Pending Lab Test: Laboratory Tests 10/17/21 05:50: White Blood Count 2.4L, Red Blood Count 2.45L, Hemoglobin 8.0L, Hematocrit 23L, Mean Corpuscular Volume 92, Mean Corpuscular Hemoglobin 33, Mean Corpuscular Hem oglobin Concent 36, Red Cell Distribution Width 18.1H, Platelet Count 204, Mean Platelet Volume 9.0, Immature Granulocyte % (Auto) 3, Neutrophils (%) (Auto) 42, Lymphocytes (%) (Auto) 21, Monocytes (%) (Auto) 31H, Eosinophils (%) (Auto) 2, Basophils (%) (Auto) 1, Neutrophils # (Auto) 1.0L, Lymphocytes # (Auto) 0.5L, Monocytes # (Auto) 0.7, Eosinophils # (Auto) 0.1, Basophils # (Auto) 0.0, Immature Granulocyte # (Auto) 0.1, Sodium Level 128L, Potassium Level 3.7, Chloride Level 94L, Carbon Dioxide Level 22, Anion Gap 12, Blood Urea Nitrogen 9, Creatinine 0.80, Estimat Glomerular Filtration Rate 101, BUN/Creatinine Ratio 11, Glucose Level 102, Calcium Level 8.4L, Corrected Calcium 9.2, Total Bilirubin 0.6, Aspartate Amino Transf (AST/SGOT) 20, Alanine Aminotransferase (ALT/SGPT) 13, Alkaline Phosphatase 41, Total Protein 5.3L, Albumin 3.0L 10/17/21 08:03: Vancomycin Level Trough 20.6H Microbiology 10/15/21 Blood Culture - Preliminary, Resulted No growth 10/15/21 Urine Culture - Final, Complete NO GROWTH 10/15/21 Throat Culture - Final, Complete YEAST Home Meds Active Tessalon Perles (Benzonatate) 100 Mg Capsule 200 Mg PO TID Azithromycin 500 Mg Tablet 500 Mg PO DAILY 2 Days Furosemide 40 Mg Tablet 40 Mg PO DAILY Reported Ventolin Hfa (Albuterol Sulfate) 1 Puff Puff 2 Puff INH Q6H PRN Senna (Sennosides) 8.6 Mg Tablet 8.6 Mg PO DAILY PRN Hydrocodone-Acetamin 5-325 mg (Hydrocodone/Acetaminophen) 1 Each Tablet 1 Ea PO Q8H PRN Cyclobenzaprine HCl 10 Mg Tablet 10 Mg PO Q12H PRN Guaifenesin 100 Mg/5 Ml Liquid 10 Ml PO Q4H PRN Fluticasone Propionate 16 Gm [place].susp 1 [place] NSEACH BID Lisinopril 10 Mg Tablet 10 Mg PO DAILY HOLD FOR SBP <100 OR PULSE <60- NOTIFY PCP IF HELD FOR 3 CONSECUTIVE DAYS Cetirizine HCl 10 Mg Tablet 10 Mg PO DAILY Iprat-Albut 0.5-3(2.5) mg/3 ml (Ipratropium/Albuterol Sulfate) 3 Ml Ampul.neb 3 Ml IH Q6H PRN Assessment/Pt Instructions PCP in 1 week Discharge Planning: <30 minutes discharge planning Discharge Instructions Discharge Diet: No Restrictions Activity as Tolerated: Yes Discharge Physical Examination Vital Signs Vital Signs Date Time Temp Pulse Resp B/P (MAP) Pulse Ox O2 Delivery O2 Flow Rate FiO2 10/17/21 10:12 96 Room Air 10/17/21 07:47 37.3 99 20 113/61 (78) 10/16/21 14:33 1.00 General Appearance: No Apparent Distress, WD/WN, Chronically ill Respiratory: Lungs Clear, Normal Breath Sounds Allergies: Coded Allergies: Penicillins (Verified Allergy, Unknown, 07/26/21) melatonin (Verified Allergy, Unknown, 07/26/21) Discharge Summary Date of Admission October 15, 2021 at 11:21 Date of Discharge Discharge Date: October 17, 2021 Admission Diagnosis Assessment: Fever Immunosuppression from chemotherapy 2 weeks ago Lung cancer Right-sided superior vena cava syndrome DVT prophylaxis COPD Hyponatremia Plan: Broad-spectrum antibiotics Lovenox Fluid restriction Salt tablets Discharge Diagnosis Assessment: Fever with Neutropenia Immunosuppression from chemotherapy 2 weeks ago Lung cancer Right-sided superior vena cava syndrome DVT prophylaxis COPD Hyponatremia Plan: Broad-spectrum antibiotics Lovenox Fluid restriction Salt tablets 10/16/2021: Supportive care IV antibiotics Fluid restriction Salt tablets (1) Metastatic lung cancer (metastasis from lung to other site) Status: Acute (2) COPD (chronic obstructive pulmonary disease) Status: Chronic (3) Hyponatremia Status: Acute JESSICA GALVEZ DO October 17, 2021 10:18
[2021-10-17] MEDS ORDERED: VANCOMYCIN 1 GM/NS 250 ML IVPB IV SCH ×2 (11:00)
[2021-10-17 11:28] VITALS: BP 108/66
[2021-10-17 12:20] VITALS: BP 108/66
[2021-10-17 12:22] VITALS: BP 108/66
--- NOTE | 2021-10-17 18:09 | Physician Query Clarification ---
Physician Query-General Query to Physician: Clinical Validation Clarification : Pillo Goncalves Sepsis has been documented in the medical record. After study, do you consider Sepsis a clinically valid diagnosis? If not clini richard valid, please document "Sepsis, ruled out" on the progress notes and/or discharge summary. 1. No, Sepsis not clinically valid/ruled out 2. Yes, Sepsis is a clinically valid diagnosis 3. Other, with explanation of the clinical findings 4. Clinically undetermined, no explanation for the clinical findings Additional information: Lung Cancer on Chemotherapy Admission VS/Labs: Vital Signs: HR 110, RR 20, BP 136/86, SpO2 95% sat on room air T 37.2, WBC 3.3, PCT 0.11, lactic acid 2.17, COVID-19, influenza A, influenza B all negative, Blood cultures, urine culture with no growth, Throat culture "yeast", Treatment ER: Normal saline 1 L, dexamethasone IV, cefepime IV, Vancomycin IV, Please remember a lack of response to the above will prompt a phone page by CDI/coding staff. In responding to this query, please exercise your independent professional judgment. The purpose of this communication is to more accurately reflect the complexity of your patients condition. The fact that a question is asked does not imply that any particular answer is desired or expected. Thank you for timely response to this clarification. Calin Brown MSN, RN Clinical Regulatory Scientist PH [email or web address] PHYSICIAN RESPONSE: Based on the clinical findings in the record, please respond to the query above on this document as an addendum. Physician Response: Physician Response sepsis ruled out If you have questions please contact: Television Station Manager: Ext: Thank you for your time and cooperation. Clinical Regulatory Scientist/Television Station Manager This is a permanent part of the medical record CALIN BROWN October 17, 2021 18:09 JESSICA GONCALVES DO October 17, 2021 18:51
== END 2021-10-17 12:26 | DRG 191 ==
LOC: EDUNIT# 09:17 → ER 09:19 → 4TH 11:21
PROVIDERS: ADMIT Internal Medicine; ATTEND Internal Medicine
DX: J43.9 Emphysema, unspecified (principal); C34.11 Malignant neoplasm of upper lobe, right bronchus or lung; I87.1 Compression of vein; C79.31 Secondary malignant neoplasm of brain; C79.51 Secondary malignant neoplasm of bone; E87.1 Hypo-osmolality and hyponatremia; J20.9 Acute bronchitis, unspecified; D70.1 Agranulocytosis secondary to cancer chemotherapy; D64.9 Anemia, unspecified; R60.1 Generalized edema; H91.91 Unspecified hearing loss, right ear; F17.210 Nicotine dependence, cigarettes, uncomplicated; Z20.822 Contact with and (suspected) exposure to COVID-19; Z79.52 Long term (current) use of systemic steroids; Z88.0 Allergy status to penicillin; Z88.8 Allergy status to other drugs, medicaments and biological substances
CPT/HCPCS: 36415; 71045; 71275; 80053; 80202; 81000; 83605; 83880; 84145; 85007; 85025; 85027; 85610; 85730; 86308; 87040; 87088; 87430; 87636; 94640; 94760

== ENCOUNTER → 2021-10-27 | Outpatient (CLI) | payer MEDICARE, MEDICAID ==
[~2021-10-27] VITALS: Ht 172.7 cm; Wt 91.4 kg
[~2021-10-27] MED LIST changes: +CEFD300C3 PO; +FLUC100T10 PO; +LINE600T12 PO
--- NOTE | 2021-10-27 11:19 | Diagnostic Imaging Report ---
INDICATION: Patient is post right thoracentesis. COMPARISON: Exam is compared with a study 10/15/2021. FINDINGS: There have been marked improvements in right-sided pleural fluid. There is a small amount of intrafissural fluid at the right apex. No pneumothorax. There has been no adverse development. There is improved expansion of the right lung. IMPRESSION: Decreased pleural fluid and improved right lung expansion post thoracentesis with no pneumothorax or adverse interval development. Dictated by: Dictated on workstation # [id number]
--- NOTE | 2021-10-27 13:25 | Diagnostic Imaging Report ---
INDICATION: Pleural effusion Ultrasound images were performed prior to Dr. Lance performing thoracentesis. On the right side, there is a moderate size right pleural effusion without overt loculation. IMPRESSION: Ultrasound images demonstrate a moderate-sized nonloculated right pleural effusion. See separate dictation per Dr. Lance for thoracentesis. Dictated by: Dictated on workstation # [id number]
--- NOTE | 2021-10-28 20:55 | OPERATIVE REPORT ---
DATE OF SERVICE: 10/27/2021 PREOPERATIVE DIAGNOSIS: Right pleural effusion. POSTOPERATIVE DIAGNOSIS: Right pleural effusion. PROCEDURE: Right ultrasound-guided thoracentesis. SURGEON: Marline Lance DO ANESTHESIA: Local. ESTIMATED BLOOD LOSS: None. COMPLICATIONS: None. INDICATIONS: The patient is a 61-year-old male with a known lung cancer. He has recurrent pleural effusion, symptomatic. He understands risks and benefits of procedure and wishes to proceed. Consent was signed in the chart. DESCRIPTION OF PROCEDURE: The patient was in the procedure room and radiology. He was in the sitting, leaning forward position. Ultrasound was used to isolate the largest pocket present. The area was prepped and draped in sterile fashion. Local anesthetic was infiltrated. A #11 blade scalpel was used to make a small skin incision and the Xndn-C-Eskmdudn needle and catheter were then advanced through the chest wall on the right side until straw-colored fluid was withdrawn. The catheter was then advanced and the needle was removed. A total of 875 mL of straw-colored fluid was withdrawn. The catheter was then removed and sterile bandage was applied. The patient tolerated the procedure well without any complications, taken to recovery room and chest x-ray pending. Job ID: [id number] DocumentID: [id number] Dictated Date: 10/28/2021 11:26:22 Cloth Beamer Date: 10/28/2021 20:54:02 Dictated By: MARLINE LANCE DO
== END ==
LOC: RAD 10:21
PROVIDERS: ATTEND Surgery
DX: J90 Pleural effusion, not elsewhere classified (principal); C34.90 Malignant neoplasm of unspecified part of unspecified bronchus or lung; Z98.890 Other specified postprocedural states
CPT/HCPCS: 32555; 71045; A7048

== ENCOUNTER 2021-11-07 10:14 | Outpatient (RCR) | payer MEDICARE, MEDICAID | END 2021-11-14 | disposition home or self-care (01) | LOC: ONC 10:14 | PROVIDERS: ATTEND Radiology Radiation Oncology | DX: Z51.0 Encounter for antineoplastic radiation therapy (principal); C34.11 Malignant neoplasm of upper lobe, right bronchus or lung | CPT/HCPCS: 77334; 99214 ==

== ENCOUNTER 2021-11-15 14:31 | Outpatient (RCR) | payer MEDICARE, MEDICAID ==
[2021-11-17] MEDS ORDERED: ACET325T38 PO (12:22)
[2021-11-17] MEDS ORDERED: FURO40TA4 PO (12:25)
[2021-11-17] MEDS ORDERED: POTA-51 PO (12:26)
[2021-11-17] MEDS ORDERED: PANT40TA52 PO (12:26)
[2021-11-17] MEDS ORDERED: SULF-221 PO (12:27)
[2021-11-17] MEDS ORDERED: BENZ100C18 PO (12:30)
[2021-11-17] MEDS ORDERED: NF-NACL1GT PO (12:30)
[2021-11-17] MEDS ORDERED: [UNRECOGNIZED DRUG - CODE] MM (12:32)
[2021-11-17] MEDS ORDERED: ONDA-106 PO (12:33)
[2021-11-17] MEDS ORDERED: SODI30SP2 NS (12:34)
[2021-11-17] MEDS ORDERED: DEXA4TAB66 PO (12:40)
[2021-11-23] MEDS ORDERED: PRD20T PO (13:05)
[2021-11-23] MEDS ORDERED: SULF1TAB38 PO (13:05)
[2021-11-27] MEDS ORDERED: VANC1PLA9 IV (14:23)
[2021-12-14] MEDS ORDERED: PANT40TA52 PO (11:16)
[2021-12-15] MEDS ORDERED: CEFD300C3 PO (10:36)
[2021-12-15] MEDS ORDERED: LINE600T12 PO (10:36)
[2021-12-15] MEDS ORDERED: PRED10TA22 PO (10:36)
[2021-12-15] MEDS ORDERED: MONT-40 PO (10:36)
== END 2021-12-14 | disposition home or self-care (01) ==
LOC: ONC 14:31
PROVIDERS: ATTEND Radiology Radiation Oncology
DX: Z51.0 Encounter for antineoplastic radiation therapy (principal); C80.1 Malignant (primary) neoplasm, unspecified; C79.31 Secondary malignant neoplasm of brain
CPT/HCPCS: 77300; 77301; 77338; 77370; 77372; 77470

== ENCOUNTER 2021-11-17 02:15 | Inpatient (IN) | payer MEDICARE, MEDICAID ==
[~2021-11-17] VITALS: Ht 172.7 cm; Wt 104.2 kg
[2021-11-17] MEDS ORDERED: RT-ALBUTEROL SULF 2.5 MG/3 ML PRE-MIX VIAL INH STA (02:21)
[2021-11-17] MEDS ORDERED: methylPREDNISolone 125 MG (Solu-MEDROL) VIAL IV STA (02:21)
[2021-11-17] MEDS ORDERED: RT-ALBUTEROL/IPRATROPIUM 3 ML (DUONEB) VIAL ONE (02:29)
[2021-11-17] MEDS ORDERED: NS IV 1000 ML 1,000 ML IV SCH ×3 (02:30→10:30)
[2021-11-17] MEDS ORDERED: CEFEPIME INJECTION 1,000 MG in NS (IVPB) 50 ML IV ONE (02:30)
[2021-11-17] MEDS ORDERED: RT-ALBUTEROL/IPRATROPIUM 3 ML (DUONEB) VIAL INH ONE (02:30)
[2021-11-17] MEDS ORDERED: NITROGLYCERIN 0.4 MG SL TABS BTL 25'S SL PRN (02:30)
[2021-11-17] MEDS ORDERED: morphine INJ 10 MG/ML 1ML (SYR OR VIAL) IVP STA (02:31)
--- NOTE | 2021-11-17 02:31 | ED Chest Pain ---
General Chief Complaint: Chest Pain Stated Complaint: CP Source: patient Exam Limitations: no limitations History of Present Illness Date Seen by Provider: Nov 17, 2021 Time Seen by Provider: 02:19 Initial Comments Patient to ER by EMS from [facility] and rehab with chief complaint of 2 and half days of chest pain reproducible to direct palpation middle of his chest nonradiating. Is also made worse by dry nonproductive cough. He had a fever T- max 100.8 today. He received a [place] prior to summons and EMS. He denies a heart history other than family heart history. 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 Acosta oncology. He has a history of COPD and does not think he is been getting the right breathing treatments lately. EMS initiated a DuoNeb which she states helped him significantly. He does not use supplemental oxygen at baseline. He feels short of breath, orthopnea and pursed lip breathing. Quit smoking 2 years ago. He was recently started on Bactrim DS for his low white count. No hypertension or hyperlipidemia. No diabetes. He is on Decadron for his brain tumor. Allergies and Home Medications Allergies Coded Allergies: Penicillins (Verified Allergy, Unknown, 07/26/21) melatonin (Verified Allergy, Unknown, 07/26/21) Patient Home Medication List Home Medication List Reviewed: Yes Acetaminophen (Tylenol) 325 Mg Tablet, 650 MG PO Q4M, (Reported) Entered as Reported by: JAZIEL HUNT on 11/17/21 1222 Last Action: Reviewed Albuterol Sulfate (Ventolin Hfa) 1 Puff Puff, 2 PUFF INH Q6H PRN for SHORTNESS OF BREATH, (Reported) Entered as Reported by: ALEXANDRA CAMPOS on 07/14/21 1147 Last Action: Reviewed Benzonatate (Tessalon Perles) 100 Mg Capsule, 200 MG PO TID, (Reported) Entered as Reported by: JAZIEL HUNT on 11/17/21 1230 Last Action: Reviewed Cetirizine HCl (Cetirizine HCl) 10 Mg Tablet, 10 MG PO DAILY, (Reported) Entered as Reported by: ALEXANDRA CAMPOS on 07/14/21 1147 Last Action: Reviewed Cyclobenzaprine HCl (Cyclobenzaprine HCl) 10 Mg Tablet, 10 MG PO Q12H PRN for SPASMS, (Reported) Entered as Reported by: ALEXANDRA CAMPOS on 07/14/211146 Last Action: Reviewed Dexamethasone (Decadron) 4 Mg Tablet, 4 MG PO UD, (Reported) Entered as Reported by: JAZIEL HUNT on 11/17/21 1240 Last Action: Reviewed Fluticasone Propionate (Fluticasone Propionate) 16 Gm Page.susp, 1 SPRAY NSEACH BID, (Reported) Entered as Reported by: ALEXANDRA CAMPOS on 07/14/211146 Last Action: Reviewed Furosemide (Furosemide) 40 Mg Tablet, 40 MG PO DAILY, (Reported) Entered as Reported by: JAZIEL HUNT on 11/17/21 1225 Last Action: Reviewed Guaifenesin (Guaifenesin) 100 Mg/5 Ml Liquid, 10 ML PO Q4H PRN for COUGH, (Reported) Entered as Reported by: ALEXANDRA CAMPOS on 07/14/211146 Last Action: Reviewed Hydrocodone/Acetaminophen (Hydrocodone-Acetamin 5-325 mg) 1 Each Tablet, 1 EA PO Q6H PRN for PAIN-MODERATE (5-7), (Reported) Entered as Reported by: ALEXANDRA CAMPOS on 07/14/211146 Last Action: Reviewed Ipratropium/Albuterol Sulfate (Iprat-Albut 0.5-3(2.5) mg/3 ml) 3 Ml Ampul.neb, 3 ML IH Q6H PRN for SHORTNESS OF BREATH, (Reported) Entered as Reported by: ALEXANDRA CAMPOS on 07/14/211146 Last Action: Reviewed Lisinopril (Lisinopril) 10 Mg Tablet, 10 MG PO DAILY, (Reported) Entered as Reported by: ALEXANDRA CAMPOS on 07/14/211146 Last Action: Reviewed Menthol (Cough Drops) 5.8 Mg Lozenge, 5.8 MG MM Q2H PRN for COUGH, (Reported) Entered as Reported by: JAZIEL HUNT on 11/17/21 1232 Last Action: Reviewed Ondansetron HCl (Ondansetron HCl) 8 Mg Tablet, 8 MG PO Q8H PRN for NAUSEA/VOMITING, (Reported) Entered as Reported by: JAZIEL HUNT on 11/17/21 1233 Last Action: Reviewed Pantoprazole Sodium (Pantoprazole Sodium) 40 Mg Tablet.dr, 40 MG PO DAILY, (Reported) Entered as Reported by: JAZIEL HUNT on 11/17/21 1226 Last Action: Reviewed Potassium Chloride (Potassium Chloride) 20 Meq Tablet.er, 20 MEQ PO DAILY, (Reported) Entered as Reported by: JAZIEL HUNT on 11/17/21 1226 Last Action: Reviewed Sennosides (Senna) 8.6 Mg Tablet, 8.6 MG PO DAILY PRN for CONSTIPATION-5TH LINE, (Reported) Entered as Reported by: ALEXANDRA CAMPOS on 07/14/21 1147 Last Action: Reviewed Sodium Chloride (Sodium Chloride) 1 Gram Tab, 1 GM PO BID, (Reported) Entered as Reported by: JAZIEL HUNT on 11/17/21 1230 Last Action: Reviewed Sodium Chloride (Saline Nasal Page) 0.65 % Page, 1 SPRAY NS Q2H PRN for CONGESTION, (Reported) Entered as Reported by: JAZIEL HUNT on 11/17/21 1234 Last Action: Reviewed Sulfamethoxazole/Trimethoprim (Bactrim Ds Tablet) 800 Mg-160 Mg Tablet, 1 EACH PO BID, (Reported) Entered as Reported by: JAZIEL HUNT on 11/17/21 1227 Last Action: Reviewed Review of Systems Review of Systems Constitutional: No chills, No diaphoresis EENTM: No Blurred Vision, No Double Vision Respiratory: Cough, Orthopnea, Shortness of Air Cardiovascular: Chest Pain; Denies Edema, Denies Irregular Heart Rate, Denies Lightheadedness, Denies Palpitations Gastrointestinal: Denies Constipated, Denies Diarrhea Genitourinary: Denies Burning, Denies Discharge, Denies Drainage Musculoskeletal: No back pain, No joint pain Skin: No pruritus, No rash Psychiatric/Neurological: Headache; Denies Numbness, Denies Paresthesia All Other Systems Reviewed Negative Unless Noted: Yes Past Uiedvdv-Stggtf-Mwncpe Hx Patient Social History Tobacco Use?: No Tobacco type used: Cigarettes Smoking Status: Former Smoker (Quit 2019) Use of E-Cig and/or Vaping dev: No Substance use?: No Immunizations Up To Date Tetanus Booster (TDap): Unknown First/Initial COVID19 Vaccinat: SEPTEMBER 2020 Second COVID19 Vaccination Alexey: OCTOBER 2020 Third COVID19 Vaccination Date: MARCH 2021 Past Medical History Surgery/Hospitalization HX: HTN, COPD, HERNIA REPAIR, RIGHT LUNG MASS, Surgeries: Yes Abdominal, Eye Surgery Respiratory: Yes (METASTATIC LUNG CANCER-BRAIN AND SPINAL METS; CHRONIC RESP. 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) HEENT: Yes (DECREASED HEARING RIGHT EAR) Cataract Loss of Vision: Denies Cancer: Yes Brain, Bone, Lung Did You Recieve Any Treatments: Yes What Type of Treatment Did You: Chemotherapy Psychosocial: Yes Sleep Difficulties Integumentary: No Blood Disorders: No Family Medical History Heart Disease, Cancer, Diabetes SOCIAL HISTORY: -SMOKES 1 1/2 PPD--CLAIMS HE JUST QUIT, PER PT 10/15/21 -ETOH--"30 PACK EVERY 3 DAYS"--CLAIMS HE JUST QUIT, PER PT 10/15/21 -DRUGS--DENIES USE PAST SURGICAL HISTORY: -CHEST TUBE FOR PNEUMOTHORAX 06/17/21 -CT GUIDED LUNG BIOPSY -PORT LEFT CHEST 07/2021 -BILATERAL INGUINAL HERNIA REPAIRS -BILATERAL CATARACT SURGERY Physical Exam Vital Signs Vital Signs - First Documented 11/17/21 02:15 Temp 39.1 Pulse 131 Resp 28 B/P (MAP) 123/82 (96) Pulse Ox 97 Capillary Refill : Height, Weight, BMI Height: 6'0" Weight: 169lbs. oz. 76.123143yh; 30.64 BMI Method:Stated General Appearance: Anxious, Chronically ill, Moderate Distress HEENT: PERRL/EOMI, Moist Mucous Membranes Neck: Full Range of Motion, Normal Inspection Respiratory: No Chest Non Tender; Accessory Muscle Use, Respiratory Distress (96 to 100% on room air, breathing 25 to 30 breaths/min, audible wheezing), Wheezing Cardiovascular: Regular Rate, Rhythm, Normal Peripheral Pulses, Tachycardia (130) Gastrointestinal: Non Tender, Soft Extremity: Normal Capillary Refill, Normal Inspection, Pedal Edema (Trace bipedal) Neurologic/Psychiatric: Alert, Oriented x3, No Motor/Sensory Deficits, Normal Mood/Affect Skin: Normal Color, Warm/Dry Focused Exam Sepsis Stage: Severe Sepsis Possible Source: Unknown Lactate Level Time of Focused Exam: 03:18 Respiratory: No Accessory Muscle Use, Decreased Breath Sounds, Respiratory Distress (Maintaining oxygen saturations in the upper 90s on 2 L by nasal cannula, respiratory rate still 25 breaths/min), Wheezing Cardiovascular: Regular Rate, Rhythm, Normal Peripheral Pulses, Tachycardia (135) Capillary Refill: NONE Peripheral Pulses: 2+ Radial Pulses (R), 2+ Radial Pulses (L) Skin: normal color, warm/dry Lactic Acid Level Laboratory Tests Test 11/17/21 02:40 Lactic Acid Level 3.02 MMOL/L (0.50-2.00) *H Within 3hrs of presentation: Admin fluids, Admin 30ml/kg IBW due to BMI>30, Admin ABX, Blood cultures prior to ABX's, Focus exam, Lactate level Progress/Results/Core Measures Results/Orders Lab Results Laboratory Tests Test 11/17/21 02:25 11/17/21 02:40 Range/Units White Blood Count 32.0 *H 4.3-11.0 10^3/uL Red Blood Count 3.47 L 4.30-5.52 10^6/uL Hemoglobin 11.2 L 13.3-17.7 g/dL Hematocrit 33 L 40-54 % Mean Corpuscular Volume 94 80-99 fL Mean Corpuscular Hemoglobin 32 25-34 pg Mean Corpuscular Hemoglobin Concent 34 32-36 g/dL Red Cell Distribution Width 16.8 H 10.0-14.5 % Platelet Count 84 L 130-400 10^3/uL Mean Platelet Volume 9.1 9.0-12.2 fL Immature Granulocyte % (Auto) 4 % Neutrophils (%) (Auto) 92 H 42-75 % Lymphocytes (%) (Auto) 0 L 12-44 % Monocytes (%) (Auto) 3 0-12 % Eosinophils (%) (Auto) 0 0-10 % Basophils (%) (Auto) 0 0-10 % Neutrophils # (Auto) 29.5 H 1.8-7.8 10^3/uL Lymphocytes # (Auto) 0.1 L 1.0-4.0 10^3/uL Monocytes # (Auto) 1.1 H 0.0-1.0 10^3/uL Eosinophils # (Auto) 0.1 0.0-0.3 10^3/uL Basophils # (Auto) 0.1 0.0-0.1 10^3/uL Immature Granulocyte # (Auto) 1.2 H 0.0-0.1 10^3/uL Neutrophils % (Manual) 93 % Lymphocytes % (Manual) 1 % Monocytes % (Manual) 4 % Band Neutrophils 2 % Hypochromasia SLIGHT Anisocytosis SLIGHT Microcytosis SLIGHT Influenza Type A (RT-PCR) Not Detected Not Detecte Influenza Type B (RT-PCR) Not Detected Not Detecte SARS-CoV-2 RNA (RT-PCR) Not Detected Not Detecte Prothrombin Time 14.7 12.2-14.7 SEC INR Comment 1.1 0.8-1.4 Activated Partial Thromboplast Time 31 24-35 SEC D-Dimer 15.52 H 0.00-0.49 UG/ML Blood Gas Puncture Site RIGHT WRIST Blood Gas Patient Temperature 38.2 Arterial Blood pH 7.47 H 7.37-7.43 Arterial Blood Partial Pressure CO2 33 L 35-45 MMHG Arterial Blood Partial Pressure O2 81 79-93 MMHG Arterial Blood HCO3 23 23-27 MMOL/L Arterial Blood Total CO2 24.0 21.0-31.0 MMOL/L Arterial Blood Oxygen Saturation 96 94-100 % Arterial Blood Base Excess 0.0 -2.5-2.5 MMOL/L Marcello Test POSITIVE Blood Gas Ventilator Setting NO Blood Gas Inspired Oxygen 1 Sodium Level 122 *L 135-145 MMOL/L Potassium Level 5.0 3.6-5.0 MMOL/L Chloride Level 86 L 98-107 MMOL/L Carbon Dioxide Level 22 21-32 MMOL/L Anion Gap 14 5-14 MMOL/L Blood Urea Nitrogen 23 H 7-18 MG/DL Creatinine 0.89 0.60-1.30 MG/DL Estimat Glomerular Filtration Rate 97 BUN/Creatinine Ratio 26 Glucose Level 102 70-105 MG/DL Lactic Acid Level 3.02 *H 0.50-2.00 MMOL/L Calcium Level 8.3 L 8.5-10.1 MG/DL Corrected Calcium 9.0 8.5-10.1 MG/DL Magnesium Level 1.6 1.6-2.4 MG/DL Total Bilirubin 1.5 H 0.1-1.0 MG/DL Aspartate Amino Transf (AST/SGOT) 22 5-34 U/L Alanine Aminotransferase (ALT/SGPT) 73 H 0-55 U/L Alkaline Phosphatase 59 40-136 U/L Myoglobin 105.4 H 10.0-92.0 NG/ML Troponin I < 0.028 <0.028 NG/ML C-Reactive Protein High Sensitivity 20.35 H 0.00-0.50 MG/DL B-Type Natriuretic Peptide 133.3 H <100.0 PG/ML Total Protein 5.3 L 6.4-8.2 GM/DL Albumin 3.1 L 3.2-4.5 GM/DL Procalcitonin 6.14 H <0.10 NG/ML Micro Results Microbiology 11/17/21 Blood Culture - Final, Complete Staphylococcus aureus 11/17/21 Blood Culture - Preliminary, Resulted Staphylococcus aureus My Orders Orders - ARSLAN,KIM J Ekg Tracing (11/17/21 02:18) Cbc With Automated Diff (11/17/21 02:21) Magnesium (11/17/21 02:21) Chest 1 View, Ap/Pa Only (11/17/21 02:21) Comprehensive Metabolic Panel (11/17/21 02:21) Myoglobin Serum (11/17/21 02:21) Protime With Inr (11/17/21 02:21) Partial Thromboplastin Time (11/17/21 02:21) O2 (11/17/21 02:21) Monitor-Rhythm Ecg Trace Only (11/17/21 02:21) Ed Iv/Invasive Line Start (11/17/21 02:21) Bnp Home (11/17/21 02:21) Troponin I Home (11/17/21 02:21) Nitroglycerin 0.4 Mg Btl 25's (Nitrostat (11/17/21 02:30) Albuterol Pre-Mix Nebs (Rt) (Proventil (11/17/21 02:21) Albuterol/Ipra Inhalation Soln (Duoneb I (11/17/21 02:30) Methylprednisolone Sod Succ (Solu-Medrol (11/17/21 02:21) Blood Culture (11/17/21 02:21) Sputum Culture (11/17/21 02:21) Urinalysis (11/17/21 02:21) Urine Culture (11/17/21 02:21) Ed Iv/Invasive Line Start (11/17/21 02:21) Ed Iv/Invasive Line Start (11/17/21 02:21) Vital Signs Adult Sepsis Patie Q15M (11/17/21 02:21) Remove Rings In Anticipation O (11/17/21 02:21) Lactic Acid Analyzer (11/17/21 02:21) Influenza A And B By Pcr (11/17/21 02:21) Ns Iv 1000 Ml (Sodium Chloride 0.9%) (11/17/21 02:30) Cefepime Injection (Maxipime Injection) (11/17/21 02:30) Vancomycin Injection (Vancomycin Injecti (11/17/21 02:30) Covid 19 Inhouse Test (11/17/21 02:21) Arterial Blood Gas (11/17/21 02:21) Hs C Reactive Protein (11/17/21 02:21) Procalcitonin (Pct) (11/17/21 02:21) Morphine Injection (Morphine Injection (11/17/21 02:31) Albuterol/Ipra Inhalation Soln (Duoneb I (11/17/21 02:29) Acetaminophen Tablet/Caplet (Tylenol T (11/17/21 02:36) Acetaminophen Tablet/Caplet (Tylenol T (11/17/21 02:45) Manual Differential (11/17/21 02:25) Fibrin Degradation Products (11/17/21 02:40) Ed Iv/Invasive Line Start (11/17/21 03:11) Ns Iv 1000 Ml (Sodium Chloride 0.9%) (11/17/21 03:15) Enoxaparin Injection (Lovenox Injection) (11/17/21 03:30) Enoxaparin Injection (Lovenox Injection) (11/17/21 03:45) Medications Given in ED Vital Signs/I&O 11/17/21 11/17/21 11/17/21 11/17/21 02:15 02:15 02:15 02:40 Temp 39.1 39.1 Pulse 131 Resp 28 B/P (MAP) 123/82 (96) Pulse Ox 97 O2 Delivery Nasal Cannula Nasal Cannula Nasal Cannula O2 Flow Rate 2.00 2.00 2.00 11/17/21 02:55 Pulse Ox 98 O2 Delivery Nasal Cannula O2 Flow Rate 1.00 Progress Progress Note #1: Time: 02:37 Progress Note After DuoNeb by EMS she still having audible wheezing so we will give him an hour-long DuoNeb and albuterol 12.5 mg. We will get an ABG and some labs. We will get an EKG, chest x-ray. He received aspirin 324 mg at the [facility]. He is complaining of pain so 6 mg morphine were ordered. 125 mg Solu-Medrol ordered for his breathing. Septic work-up. 650 mg Tylenol. Broad-spectrum antibiotics and will start with a liter of fluids. Swab for COVID. Progress Note #2: Time: 03:14 Progress Note Based on his elevated white count and lactate we did increase his IV fluids to 2 L which would be just under 30 mL/kg before he gets the antibiotics. IV fluid calculation based on ideal body weight of 166 pounds. On repeat assessment his breathing is much improved. His ABG just demonstrates he was hypoxic which is improving with a hour-long. Progress Note #3: Time: 04:03 Progress Note Patient needs a CT angiogram to evaluate his possibility of PEs however he is not able to tolerate laying flat so we will just give him a dose of Lovenox and readdress this in the morning. Initial ECG Impression Date: Nov 17, 2021 Initial ECG Impression Time: 02:24 Initial ECG Rate: 131 Initial ECG Rhythm: S.Tach Initial ECG Intervals: Normal Initial ECG Impression: Normal Comment Sinus tachycardia without clinically relevant ST elevation or depression. Diagnostic Imaging Diagonstic Imaging: Xray Plain Films/CT/US/NM/MRI: chest Comments [facility]. [place], [place] NAME: GULSHAN LEACH Jaimee [facility] REC#: [id number] PT STATUS: ADM IN : 1960 PHYSICIAN: KIM MCDANIELS MD ADMIT DATE: 11/17/21/ICU Signed Date of Exam:11/17/21 CHEST 1 VIEW, AP/PA ONLY INDICATION: Chest pain. COMPARISON: 10/27/2021, 07/14/2021, 06/11/2021 TECHNIQUE: Single radiograph of the chest dated 11/17/2021. FINDINGS: Left-sided Port-A-Cath is again identified. The cardiac silhouette appears stable from the prior examination. Mild central pulmonary vascular congestion, increased since the prior examination. Persistent elevation of the right hemidiaphragm. Nodular density overlying the right upper lung appears stable. Increasing perihilar and left basilar interstitial opacities. No large-volume pleural effusion. No pneumothorax. No acute osseous abnormality. IMPRESSION: Increasing mild central pulmonary vascular congestion. Developing mild perihilar and left basilar edema versus pneumonitis. Stable masslike density within the right upper lung with unchanged left-sided Port-A-Cath present. Dictated by: Dictated on workstation # [id number] Dict: 11/17/2125 Trans: 11/17/21 1036 [id number] Interpreted by: CARROL BILLY MD Electronically signed by: CARROL BILLY MD 11/17/21 1036 Reviewed: Reviewed by Me Departure Communication (Admissions) Time/Spoke to Admitting Phy: 03:50 Discussed the case with Dr. Goncalves and she agrees to admit the patient to the ICU. Continue broad-spectrum antibiotics and steroids for the COPD exacerbation. We discussed that he would not tolerate laying flat through a CT angiogram and so we just put him on full dose Lovenox for the time being. Time/Spoke to Consulting Phy: 03:55 Discussed the case with Dr. Garcia at [facility] and she agrees to consult on the case. Impression Primary Impression: Severe sepsis Additional Impressions: Acute respiratory failure with hypoxemia COPD exacerbation Disposition: 01 HOME, SELF-CARE Condition: Stable Admissions Decision to Admit Reason: Admit from ER (General) Decision to Admit/Date: Nov 17, 2021 Time/Decision to Admit Time: 03:50 Departure-Patient Inst. Referrals: [facility] (PCP) Primary Care Physician ANTOINETTE TOVAR (Family) Primary Care Physician KIM MCDANIELS Nov 17, 2021 02:31
[2021-11-17] MEDS ORDERED: ACETAMINOPHEN 325 MG TABLET ONE (02:36)
[2021-11-17] MEDS ORDERED: ACETAMINOPHEN 325 MG TABLET PO ONE (02:45)
[2021-11-17 02:47] LABS: ABG OXYGEN SATURATION 96 % (94-100); ABG PCO2 33 MMHG (35-45); ABG PH 7.47 (7.37-7.43); ABG PO2 81 MMHG (79-93)
[2021-11-17 02:47] LABS: BASOPHILS # (AUTO) 0.1 10^3/uL (0.0-0.1); BASOPHILS % (AUTO) 0 % (0-10); EOSINOPHILS # (AUTO) 0.1 10^3/uL (0.0-0.3); EOSINOPHILS % (AUTO) 0 % (0-10); HEMATOCRIT 33 % (40-54); HEMOGLOBIN 11.2 g/dL (13.3-17.7); LYMPHOCYTES # (AUTO) 0.1 10^3/uL (1.0-4.0); LYMPHOCYTES % (AUTO) 0 % (12-44); MEAN CORPUSCULAR HEMOGLOBIN 32 pg (25-34); MEAN CORPUSCULAR HGB CONC 34 g/dL (32-36); MEAN CORPUSCULAR VOLUME 94 fL (80-99); MEAN PLATELET VOLUME 9.1 fL (9.0-12.2); MONOCYTES # (AUTO) 1.1 10^3/uL (0.0-1.0); MONOCYTES % (AUTO) 3 % (0-12); NEUTROPHILS # (AUTO) 29.5 10^3/uL (1.8-7.8); NEUTROPHILS % (AUTO) 92 % (42-75); PLATELET COUNT 84 10^3/uL (130-400)
[2021-11-17 02:52] LABS: ALLENS TEST POSITIVE; INSPIRED O2 1; PATIENT TEMP 38.2; VENTILATOR NO
[2021-11-17 03:04] LABS: ALBUMIN 3.1 GM/DL (3.2-4.5)
[2021-11-17] MEDS: VANCOMYCIN INJECTION 1,000 MG in NS (IVPB) 250 ML IV SCH ×2 (03:04→04:10)
[2021-11-17 03:06] LABS: CALCIUM 8.3 MG/DL (8.5-10.1)
[2021-11-17 03:07] LABS: TOTAL PROTEIN 5.3 GM/DL (6.4-8.2)
[2021-11-17 03:09] LABS: BILIRUBIN,TOTAL 1.5 MG/DL (0.1-1.0)
[2021-11-17 03:10] LABS: CREATININE SERUM 0.89 MG/DL (0.60-1.30)
[2021-11-17 03:13] LABS: FIBRIN DEGRADATION PRODUCTS 15.52 UG/ML (0.00-0.49); INR 1.1 (0.8-1.4); MAGNESIUM 1.6 MG/DL (1.6-2.4); PROTHROMBIN TIME PATIENT 14.7 SEC (12.2-14.7)
[2021-11-17 03:23] LABS: ANISOCYTOSIS SLIGHT; BAND NEUTROPHILS 2 %; HYPOCHROMASIA SLIGHT; LYMPHOCYTES % (MANUAL) 1 %; MICROCYTOSIS SLIGHT; MONOCYTES % (MANUAL) 4 %; NEUTROPHILS % (MANUAL) 93 %
[2021-11-17] MEDS ORDERED: ENOXAPARIN 100 MG/1 ML (LOVENOX) SYR SC ONE ×2 (03:30→03:45)
[2021-11-17] MEDS: LACTATED RINGERS 1,000 ML IV SCH ×3 (04:44→17:47)
[2021-11-17] MEDS ORDERED: LACTATED RINGERS 1,000 ML IV ONE (04:44)
[2021-11-17 05:04] LABS: BILIRUBIN,URINE NEGATIVE (NEGATIVE); CLARITY,URINE CLEAR; COLOR,URINE YELLOW; GLUCOSE, URINE (UA) NEGATIVE (NEGATIVE); KETONES,URINE NEGATIVE (NEGATIVE); LEUKOCYTE ESTERASE ,URINE NEGATIVE (NEGATIVE); NITRITE,URINE NEGATIVE (NEGATIVE); PROTEIN,URINE TRACE (NEGATIVE)
[2021-11-17 05:16] VITALS: BP 122/73
--- NOTE | 2021-11-17 05:18 | Tele-ICU Progress Note ---
Progress Note 61M with COPD, lung CA met to brain presented with mid-sternal CP, dry cough x2 days. Fever to 100.8. Started on bactrim a couple days ago by onc for the fever. During ED assessment, patient had extensive wheezing and elevated work of breathing. - sepsis: Broad spectrum abx intiatied, cultures pending. Procal elevated at 6.1. - COPD exacerbation: solumedrol, nebs. Patient is speaking in 2-3 word sentences and appears mildly dypneic, starts to use accessory muscles with minimal exertion, no pursed lip breathing. Patient reports this to be his clinical baseline after hour long neb in ED. O2 weaned to home 2L. - CP: now resolved. 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 Will not be aggressive about correction. Awaiting repeat. Focused Exam Lactate Level 11/17/21 02:40: Lactic Acid Level 3.02*H 11/17/21 04:05: Lactic Acid Level 2.69*H Height, Weight, BMI Height: 6'0" Weight: 169lbs. oz. 76.420431pp; BMI Method:Stated Time of Focused Exam: 03:18 Lactic Acid Level Laboratory Tests Test 11/17/21 02:40 11/17/21 04:05 Lactic Acid Level 3.02 MMOL/L (0.50-2.00) *H 2.69 MMOL/L (0.50-2.00) *H TIFFANIE VELÁSQUEZ MD Nov 17, 2021 05:18
[2021-11-17 05:21] LABS: BACTERIA,URINE NEGATIVE /HPF
[2021-11-17 05:22] LABS: HYALINE CASTS, URINE 0-2 /LPF
[2021-11-17] MEDS ORDERED: EPINEPHrine 1 MG INJECTION 4 MG in NS (IVPB) 248 ML IV SCH (05:45)
[2021-11-17] MEDS ORDERED: ONDANSETRON 4 MG/2 ML (SDV) Z0FRAN IV PRN (06:00)
[2021-11-17] MEDS ORDERED: morphine INJ 4 MG/ML 1 ML (VIAL/SYRINGE) IV PRN (06:00)
--- NOTE | 2021-11-17 06:15 | History & Physical-Hospitalist ---
History of Present Illness HPI/Chief Complaint CC: SOB HPI: This is a 61 yr old male with a past medical history of lung cancer. Previously on chemotherapy with the latest dose yesterday. He presented with COPD exacerbation and wheezing. Pt was found to have severe sepsis. Pt was placed on appropriate antibiotics and IV fluids. Currently still is having some wheezing but much improved. Overall poor prognosis. Sodium level of 122. Source: patient Exam Limitations: no limitations Date Seen 11/17/21 Time Seen by a Provider: 10:00 Attending Physician [facility] PCP Admitting Physician: Aprli Goncalves DO Attending Physician: April Goncalves DO Referring Physician Date of Admission Nov 17, 2021 at 04:00 Home Medications & Allergies Home Medications Reviewed patient Home Medication Reconciliation performed by pharmacy medication reconciliations switch technician and/or nursing. Patients Allergies have been reviewed. Allergies Allergies Coded Allergies Penicillins (Verified Allergy, Unknown, 07/26/21) melatonin (Verified Allergy, Unknown, 07/26/21) Past Epxopmp-Uspasy-Mxvopb Hx Patient Social History Marrital Status: single Employed/Student: unemployed Tobacco Use?: No Tobacco type used: Cigarettes Smoking Status: Former Smoker Use of E-Cig and/or Vaping dev: No Substance use?: No Alcohol Use?: No Pt feels they are or have been: No Immunizations Up To Date Date of Influenza Vaccine: May 24, 2022 First/Initial COVID19 Vaccinat: SEPTEMBER 2020 Second COVID19 Vaccination Alexey: OCTOBER 2020 Tetanus Booster (TDap): Unknown Current Status Advance Directives: Yes Communicates: Verbally Primary Language: Vietnamese Preferred Spoken Language: Vietnamese Is interpretation needed?: No Sensory deficits: Vision impairment, Hearing impairment Implanted or Applied Medical D: Port-a-cath Past Medical History Surgeries: Abdominal, Eye Surgery COPD, Emphysema Currently Using CPAP: No Currently Using BIPAP: No Chronic Edema/Swelling, Hypertension Abdominal Hernia Cataract Loss of Vision: Denies Brain, Bone, Lung Did You Recieve Any Treatments: Yes What Type of Treatment Did You: Chemotherapy Sleep Difficulties Blood Disorders: No Family Medical History Heart Disease, Cancer, Diabetes SOCIAL HISTORY: -SMOKES 1 1/2 PPD--CLAIMS HE JUST QUIT, PER PT 10/15/21 -ETOH--"30 PACK EVERY 3 DAYS"--CLAIMS HE JUST QUIT, PER PT 10/15/21 -DRUGS--DENIES USE PAST SURGICAL HISTORY: -CHEST TUBE FOR PNEUMOTHORAX 06/17/21 -CT GUIDED LUNG BIOPSY -PORT LEFT CHEST 07/2021 -BILATERAL INGUINAL HERNIA REPAIRS -BILATERAL CATARACT SURGERY Review of Systems Constitutional: see HPI, dizziness, malaise, weakness EENTM: no symptoms reported Respiratory: dyspnea on exertion, short of breath, wheezing Cardiovascular: no symptoms reported Gastrointestinal: no symptoms reported Genitourinary: no symptoms reported Musculoskeletal: no symptoms reported Skin: no symptoms reported Psychiatric/Neurological: No Symptoms Reported All Other Systems Reviewed Negative Unless Noted: Yes Physical Exam Physical Exam Vital Signs Vital Signs - First Documented 11/17/21 11/17/21 02:15 05:16 Temp 39.1 Pulse 131 Resp 28 B/P (MAP) 123/82 (96) Pulse Ox 97 FiO2 24 Capillary Refill : NONE Height, Weight, BMI Height: 6'0" Weight: 169lbs. oz. 76.553469ku; 34.09 BMI Method:Stated General Appearance: Anxious, Chronically ill, Mild Distress, Obese Eyes: Right Eye Normal Inspection, Right Eye PERRL HEENT: PERRL/EOMI, Normal ENT Inspection, Pharynx Normal, Moist Mucous Membranes Neck: Full Range of Motion, Normal Inspection, Non Tender Respiratory: Chest Non Tender, No Accessory Muscle Use, No Respiratory Distress, Crackles, Decreased Breath Sounds, Wheezing Cardiovascular: Regular Rate, Rhythm, No Edema, No Gallop, No JVD, No Murmur, Normal Peripheral Pulses Gastrointestinal: Normal Bowel Sounds, No Organomegaly, No Pulsatile Mass, Non Tender, Soft Back: Normal Inspection, No CVA Tenderness, No Vertebral Tenderness Extremity: Normal Capillary Refill, Normal Inspection, Normal Range of Motion, Non Tender, No Calf Tenderness, No Pedal Edema Neurologic/Psychiatric: Alert, Oriented x3, No Motor/Sensory Deficits, Normal Mood/Affect Skin: Normal Color, Warm/Dry Lymphatic: No Adenopathy Results Results/Procedures Labs Laboratory Tests 11/17/21 02:25 11/17/21 02:40 11/17/21 08:19 Patient resulted labs reviewed. Assessment/Plan Admission Diagnosis Assessment: Acute on chronic resp failure Lung cancer PNA Hyponatremia Former smoker Plan: Monitor closely ICU DNR Prognosis poor Admission Status: Inpatient Order (span 2 midnights) Reason for Inpatient Admission: resp failure Diagnosis/Problems Diagnosis/Problems (1) Severe sepsis Status: Acute (2) Acute respiratory failure with hypoxemia Status: Acute (3) COPD exacerbation Status: Acute (4) Superior vena cava obstruction Status: Acute (5) Hyponatremia Status: Acute (6) History of alcohol abuse Status: Chronic APRIL GONCALVES 3, 2022 06:15
[2021-11-17] MEDS: RT-ALBUTEROL/IPRATROPIUM 3 ML (DUONEB) VIAL INH SCH ×5 (07:05→23:02)
--- NOTE | 2021-11-17 07:33 | Diagnostic Imaging Report ---
INDICATION: Chest pain. COMPARISON: 10/27/2021, 07/14/2021, 06/11/2021 TECHNIQUE: Single radiograph of the chest dated 11/17/2021. FINDINGS: Left-sided Port-A-Cath is again identified. The cardiac silhouette appears stable from the prior examination. Mild central pulmonary vascular congestion, increased since the prior examination. Persistent elevation of the right hemidiaphragm. Nodular density overlying the right upper lung appears stable. Increasing perihilar and left basilar interstitial opacities. No large-volume pleural effusion. No pneumothorax. No acute osseous abnormality. IMPRESSION: Increasing mild central pulmonary vascular congestion. Developing mild perihilar and left basilar edema versus pneumonitis. Stable masslike density within the right upper lung with unchanged left-sided Port-A-Cath present. Dictated by: Dictated on workstation # [id number]
[2021-11-17] MEDS: NOREPINEPHRINE 8 MG/250 ML 250 ML IV SCH ×2 (08:13→19:00)
[2021-11-17] MEDS: VASOPRESSIN INJECTION 20 UNIT in NS (IVPB) 100 ML IV SCH ×2 (08:14→16:52)
[2021-11-17] MEDS: methylPREDNISolone 125 MG (Solu-MEDROL) VIAL IV SCH ×3 (08:15→19:39)
[2021-11-17 08:26] LABS: BASOPHILS # (AUTO) 0.1 10^3/uL (0.0-0.1); BASOPHILS % (AUTO) 0 % (0-10); EOSINOPHILS % (AUTO) 0 % (0-10); LYMPHOCYTES % (AUTO) 0 % (12-44)
[2021-11-17 08:28] LABS: HEMATOCRIT 30 % (40-54); HEMOGLOBIN 10.3 g/dL (13.3-17.7); MEAN CORPUSCULAR HEMOGLOBIN 33 pg (25-34); MEAN CORPUSCULAR HGB CONC 34 g/dL (32-36); MEAN CORPUSCULAR VOLUME 95 fL (80-99); MEAN PLATELET VOLUME 9.4 fL (9.0-12.2); MONOCYTES # (AUTO) 1.1 10^3/uL (0.0-1.0); MONOCYTES % (AUTO) 4 % (0-12); NEUTROPHILS # (AUTO) 24.9 10^3/uL (1.8-7.8); NEUTROPHILS % (AUTO) 93 % (42-75); PLATELET COUNT 76 10^3/uL (130-400); WHITE BLOOD COUNT 26.8 10^3/uL (4.3-11.0)
[2021-11-17] MEDS: CEFEPIME 1,000 MG/NS 50 ML IVPB IV SCH ×6 (08:33→21:26)
[2021-11-17 08:41] LABS: BUN/CREATININE RATIO 26; CALCIUM 8.1 MG/DL (8.5-10.1); CARBON DIOXIDE 20 MMOL/L (21-32); CHLORIDE 91 MMOL/L (98-107); CREATININE SERUM 0.81 MG/DL (0.60-1.30); GFR ESTIMATED 100; GLUCOSE 128 MG/DL (70-105); POTASSIUM 4.6 MMOL/L (3.6-5.0); SODIUM 126 MMOL/L (135-145)
[2021-11-17] MEDS: LORazepam INJ 2 MG/ML (ATIVAN) VIAL IV PRN (11:15)
[2021-11-17] MEDS ORDERED: ACET325T38 PO (12:22)
[2021-11-17] MEDS ORDERED: FURO40TA4 PO (12:25)
[2021-11-17] MEDS ORDERED: PANT40TA52 PO (12:26)
[2021-11-17] MEDS ORDERED: POTA-51 PO (12:26)
[2021-11-17] MEDS ORDERED: SULF-221 PO (12:27)
[2021-11-17] MEDS ORDERED: NF-NACL1GT PO (12:30)
[2021-11-17] MEDS ORDERED: BENZ100C18 PO (12:30)
[2021-11-17] MEDS ORDERED: [UNRECOGNIZED DRUG - CODE] MM (12:32)
[2021-11-17] MEDS ORDERED: ONDA-106 PO (12:33)
[2021-11-17] MEDS ORDERED: SODI30SP2 NS (12:34)
[2021-11-17] MEDS ORDERED: DEXA4TAB66 PO (12:40)
[2021-11-17] MEDS: HYDROcodone/APAP 5 MG/325 MG (LORTAB) TAB PO PRN ×2 (14:25→21:23)
[2021-11-17] MEDS: VANCOMYCIN 1500 MG/NS 500 ML IVPB IV SCH ×2 (15:20)
[2021-11-17] MEDS: ENOXAPARIN 100 MG/1 ML (LOVENOX) SYR SC SCH (16:49)
[2021-11-18] MEDS: LORazepam INJ 2 MG/ML (ATIVAN) VIAL IV PRN (00:53)
[2021-11-18] MEDS: CEFEPIME 1,000 MG/NS 50 ML IVPB IV SCH ×8 (02:15→21:09)
[2021-11-18] MEDS: methylPREDNISolone 125 MG (Solu-MEDROL) VIAL IV SCH ×4 (02:15→21:09)
[2021-11-18] MEDS: RT-ALBUTEROL/IPRATROPIUM 3 ML (DUONEB) VIAL INH SCH ×6 (02:57→22:43)
[2021-11-18] MEDS ORDERED: OLANZapine 5 MG ODT (ZyPREXA ZYDIS) PO ONE (03:30)
[2021-11-18] MEDS: LACTATED RINGERS 1,000 ML IV SCH ×3 (03:44→15:00)
[2021-11-18] MEDS: VANCOMYCIN 1500 MG/NS 500 ML IVPB IV SCH ×4 (03:44→15:16)
[2021-11-18] MEDS: VASOPRESSIN INJECTION 20 UNIT in NS (IVPB) 100 ML IV SCH ×2 (03:59→15:17)
[2021-11-18 04:08] LABS: BASOPHILS % (AUTO) 0 % (0-10); HEMATOCRIT 29 % (40-54); HEMOGLOBIN 9.8 g/dL (13.3-17.7); LYMPHOCYTES % (AUTO) 0 % (12-44); MEAN CORPUSCULAR HGB CONC 34 g/dL (32-36)
[2021-11-18 04:09] LABS: BASOPHILS # (AUTO) 0.1 10^3/uL (0.0-0.1); EOSINOPHILS % (AUTO) 0 % (0-10); LYMPHOCYTES # (AUTO) 0.1 10^3/uL (1.0-4.0); MEAN CORPUSCULAR HEMOGLOBIN 33 pg (25-34); MEAN CORPUSCULAR VOLUME 95 fL (80-99); MEAN PLATELET VOLUME 10.1 fL (9.0-12.2); MONOCYTES # (AUTO) 0.6 10^3/uL (0.0-1.0); MONOCYTES % (AUTO) 3 % (0-12); NEUTROPHILS # (AUTO) 20.3 10^3/uL (1.8-7.8); NEUTROPHILS % (AUTO) 92 % (42-75); PLATELET COUNT 76 10^3/uL (130-400); WHITE BLOOD COUNT 22.1 10^3/uL (4.3-11.0)
[2021-11-18 04:19] LABS: POTASSIUM 4.2 MMOL/L (3.6-5.0)
[2021-11-18 04:20] LABS: ALBUMIN 2.7 GM/DL (3.2-4.5)
[2021-11-18 04:21] LABS: CALCIUM 8.1 MG/DL (8.5-10.1)
[2021-11-18 04:24] LABS: BILIRUBIN,TOTAL 0.9 MG/DL (0.1-1.0)
[2021-11-18 04:25] LABS: PHOSPHORUS 2.8 MG/DL (2.3-4.7)
[2021-11-18 04:26] LABS: CREATININE SERUM 0.69 MG/DL (0.60-1.30)
[2021-11-18 04:29] LABS: MAGNESIUM 1.8 MG/DL (1.6-2.4)
[2021-11-18 04:47] LABS: ANISOCYTOSIS SLIGHT; BAND NEUTROPHILS 1 %; LYMPHOCYTES % (MANUAL) 1 %; MICROCYTOSIS SLIGHT; MONOCYTES % (MANUAL) 3 %; NEUTROPHILS % (MANUAL) 95 %; POLYCHROMASIA SLIGHT
[2021-11-18] MEDS: ENOXAPARIN 100 MG/1 ML (LOVENOX) SYR SC SCH ×2 (05:10→16:53)
[2021-11-18] MEDS ORDERED: WATER (STERILE) FOR INJ 10 ML BTL INJ SCH (05:30)
[2021-11-18] MEDS ORDERED: DexMEDEtomidine 250 ML DRIP 250 ML IV SCH (05:30)
[2021-11-18] MEDS ORDERED: ZIPRASIDONE 20 MG INJ (GEODON) VIAL IM ONE (05:30)
[2021-11-18] MEDS: MAGNESIUM 1 GM/100 ML IVPB 100 ML IV SCH (06:15)
[2021-11-18] MEDS: KCL 20 MEQ TAB (K-DUR) PO SCH (06:15)
[2021-11-18] MEDS: POTASSIUM CL 10MEQ/50ML IVPB 50 ML IV SCH (06:15)
--- NOTE | 2021-11-18 07:35 | Diagnostic Imaging Report ---
EXAMINATION: Chest 1 view HISTORY: Respiratory failure, lung cancer COMPARISON: 11/17/2021 FINDINGS: There is a stable right upper lobe nodule. There is new atelectasis or pneumonia in the right lower lobe with small right pleural effusion. Left-sided Port-A-Cath is present. Left lung is clear. No pneumothorax. Heart size is normal. IMPRESSION: 1. New atelectasis or pneumonia in the right lower lobe with a small right pleural effusion. 2. Stable right upper lobe nodule. Dictated by: Dictated on workstation # [id number]
[2021-11-18] MEDS: NOREPINEPHRINE 8 MG/250 ML 250 ML IV SCH ×2 (07:59→21:09)
--- NOTE | 2021-11-18 09:00 | Progress Note - Hospitalist ---
Subjective HPI/CC On Admission Date Seen by Provider: Nov 18, 2021 Time Seen by Provider: 08:56 CC: SOB HPI: This is a 61 yr old male with a past medical history of lung cancer. Previously on chemotherapy with the latest dose yesterday. He presented with COPD exacerbation and wheezing. Pt was found to have severe sepsis. Pt was placed on appropriate antibiotics and IV fluids. Currently still is having some wheezing but much improved. Overall poor prognosis. Sodium level of 122. Subjective/Events-last exam Patient sleeping soundly on Precedex upon my arrival appearing to be in no acute distress. No evidence for obstructive breathing. Nursing staff reported he become agitated was a threat to himself for which Precedex was initiated with confusion and paranoidal ideation. Remainder of his history obtained from chart review. Focused Exam Lactate Level 11/17/21 06:09: Lactic Acid Level 3.92*H 11/17/21 08:19: Lactic Acid Level 4.27*H 11/17/21 09:53: Lactic Acid Level 4.66*H Time of Focused Exam: 03:18 Objective Exam Vital Signs Vital Signs Date Time Temp Pulse Resp B/P (MAP) Pulse Ox O2 Delivery O2 Flow Rate FiO2 11/18/21 08:35 77 106/71 11/18/21 08:00 18 97 Room Air 11/18/21 02:57 2.00 11/17/21 19:53 36.4 11/17/21 05:16 24 Capillary Refill : NONE General Appearance: No Apparent Distress, Chronically ill Respiratory: No Accessory Muscle Use, No Respiratory Distress, Other (Coarse breath sounds anteriorly right lower lobe rales and rhonchi with vesicular breath sounds which are also diminished less congestion left lower lobe but significantly diminished as well.) Cardiovascular: Regular Rate, Rhythm, No Gallop, No Murmur Extremity: Pedal Edema Results/Procedures Lab Laboratory Tests 11/18/21 03:45 Patient resulted labs reviewed. Assessment/Plan Assessment and Plan Assess & Plan/Chief Complaint (1) Severe sepsis Status: Acute Likely due to right lower lobe pneumonia cultures positive for staph appears to be methicillin sensitive on preliminary continue vancomycin for now. Patient has develops secondary delirium continue Precedex for now defer to eICU attempt likely taper later today. with findings compatible with significant COPD and individual with small cell lung cancer and recent superior vena cava syndrome continue DNR status prognosis poor. (2) Acute respiratory failure with hypoxemia Status: Acute (3) COPD exacerbation Status: Acute (4) Superior vena cava obstruction Status: Acute (5) Hyponatremia Status: Acute (6) History of alcohol abuse Status: Chronic Critical Care Critically Ill Patient BRITTA DUMAS MD Nov 18, 2021 09:00
--- NOTE | 2021-11-18 10:10 | Tele-ICU Progress Note ---
Subjective Date Seen by a Provider: Nov 18, 2021 Time Seen by a Provider: 08:05 Subjective/Events-last exam This virtual visit was conducted using real time audio/video. Thank you for asking us to see this patient for respiratory insufficiency due to AECOPD, sepsis. Also lung CA w brain met. Recent events: Precedex started. PE: Tachypneic. O2 sat 100% on 2 LPM NC. HEENT: No obvious masses, adenopathy or JVD. Chest: coarse and diminished on auscultation. CV: RRR S1 S2 No murmur or added sounds. Abd: Non-tender. Bowel sounds Y. : Unremarkable. Galvin Y. 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 No obvious focal findings. Extremities:2+ edema. Capillary refill < 3 seconds. Skin: unremarkable. Results: Elevated WCC 22.1, BG 130. Decreased Na 126, Hb 9.8. CXR: hyperinflated, RUL opacity. Available chart/ vitals / labs / images reviewed. Video assessment done using teleICU camera, rest of exam as per RN. A/P: Respiratory insufficiency: Continue present management with O2, precedex, medrol, duonebs. Monitor for increasing oxygenation needs and/or need for intubation. Critical Care: critically ill patient. Cont. abx, nicolette. Discussed with OLIVA Moran and RT. Asked RN to reach out to eICU if any questions or concerns later. Time spent with patient/coordination of care with other health professionals (mins): 20. Sepsis Event Evaluation Height, Weight, BMI Height: 6'0" Weight: 169lbs. oz. 76.012888wp; 34.09 BMI Method:Stated Focused Exam Lactate Level 11/17/21 06:09: Lactic Acid Level 3.92*H 11/17/21 08:19: Lactic Acid Level 4.27*H 11/17/21 09:53: Lactic Acid Level 4.66*H Time of Focused Exam: 03:18 Exam Exam Patient acknowledged, consented, and participated in this virtual visit which was conducted using real time audio/video Vital Signs Date Time Temp Pulse Resp B/P (MAP) Pulse Ox O2 Delivery O2 Flow Rate FiO2 11/18/21 09:00 75 74 107/72 96 Room Air 11/18/21 08:35 77 106/71 11/18/21 08:00 96 Nasal Cannula 2.00 11/18/21 08:00 84 18 106/71 97 Room Air 11/18/21 07:00 88 11/18/21 07:00 92 28 106/77 94 Room Air 11/18/21 06:00 96 22 124/72 98 Room Air 11/18/21 06:00 95 17 124/72 11/18/21 05:00 21 144/85 11/18/21 05:00 103 23 144/85 94 Room Air 11/18/21 04:16 97 11/18/21 04:00 104 126/78 96 11/18/21 04:00 105 25 126/78 98 Room Air 11/18/21 04:00 96 Room Air 11/18/21 03:16 112 20 99 11/18/21 03:00 103/90 11/18/21 03:00 97 25 103/90 98 Room Air 11/18/21 02:57 100 Nasal Cannula 2.00 11/18/21 02:28 109 21 113/66 11/18/21 02:16 112 20 11/18/21 02:00 106 113/66 95 Room Air 11/18/21 01:00 105 126/87 94 Room Air 11/18/21 01:00 110 11/18/21 00:00 93 21 124/58 98 Room Air 11/18/21 00:00 96 Room Air 11/17/21 23:05 100 Nasal Cannula 2.00 11/17/21 23:00 89 23 103/73 98 Room Air 11/17/21 22:00 105 111/62 Room Air 11/17/21 21:00 92 19 111/74 Room Air 11/17/21 20:00 96 Room Air 11/17/21 20:00 99 19 124/71 Room Air 11/17/21 19:53 36.4 11/17/21 19:34 100 Nasal Cannula 2.00 11/17/21 19:00 100 11/17/21 19:00 101 26 124/72 98 Room Air 11/17/21 18:00 111 24 123/78 98 Room Air 11/17/21 17:00 113 31 117/85 99 Room Air 11/17/21 16:00 98 Nasal Cannula 2.00 11/17/21 16:00 110 20 112/71 96 Room Air 11/17/21 15:00 111 23 106/68 96 Room Air 11/17/21 14:38 100 Nasal Cannula 11/17/21 14:00 115 102/74 98 Nasal Cannula 2.00 11/17/21 13:00 110 112/91 97 Nasal Cannula 2.00 11/17/21 12:34 102 11/17/21 12:00 109 109/97 96 Nasal Cannula 2.00 11/17/21 12:00 96 Room Air 11/17/21 11:54 37.0 11/17/21 11:00 107 116/89 100 Nasal Cannula 2.00 11/17/21 10:50 100 Nasal Cannula 3.50 I & O 11/18/21 06:59 Intake Total 6665 ml Output Total 5000 ml Balance 1665 ml Height & Weight Height: 6'0" Weight: 169lbs. oz. 76.585943fb; 34.09 BMI Method:Stated General Appearance: No Apparent Distress, Chronically ill HEENT: PERRL/EOMI, Normal ENT Inspection, Pharynx Normal, Moist Mucous Membranes Neck: Full Range of Motion, Normal Inspection, Non Tender Respiratory: No Accessory Muscle Use, No Respiratory Distress, Other (Coarse breath sounds anteriorly right lower lobe rales and rhonchi with vesicular breath sounds which are also diminished less congestion left lower lobe but significantly diminished as well.) Cardiovascular: Regular Rate, Rhythm, No Gallop, No Murmur Capillary Refill: NONE Peripheral Pulses: 2+ Radial Pulses (R), 2+ Radial Pulses (L) Extremity: Pedal Edema Neurologic/Psychiatric: Alert, Oriented x3, No Motor/Sensory Deficits, Normal Mood/Affect Skin: Normal Color, Warm/Dry Lymphatic: No Adenopathy Results Lab Laboratory Tests 11/17/21 02:25 11/17/21 02:40 11/17/21 08:19 11/18/21 03:45 Assessment/Plan Assessment/Plan See free text. Critical Care: Critically Ill Patient ALEX GUTIERREZ MD Nov 18, 2021 10:10
[2021-11-18] MEDS ORDERED: TROUGH ORDER-PHARMACY XX ONE (14:00)
[2021-11-18] MEDS ORDERED: RT-ALBUTEROL/IPRATROPIUM 3 ML (DUONEB) VIAL ONE (17:02)
[2021-11-18] MEDS ORDERED: FUROSEMIDE 40 MG/4 ML INJ (LASIX) IVP ONE (17:30)
[2021-11-18] MEDS ORDERED: FUROSEMIDE 40 MG/4 ML INJ (LASIX) ONE (17:34)
[2021-11-18] MEDS: HYDROcodone/APAP 5 MG/325 MG (LORTAB) TAB PO PRN (20:36)
[2021-11-18] MEDS ORDERED: MIRTAZAPINE 15 MG (REMERON) TAB PO ONE (22:15)
[2021-11-19] MEDS: CEFEPIME 1,000 MG/NS 50 ML IVPB IV SCH ×8 (01:47→19:42)
[2021-11-19] MEDS: LACTATED RINGERS 1,000 ML IV SCH (01:47)
[2021-11-19] MEDS: HYDROcodone/APAP 5 MG/325 MG (LORTAB) TAB PO PRN ×3 (02:15→19:42)
[2021-11-19] MEDS: methylPREDNISolone 125 MG (Solu-MEDROL) VIAL IV SCH ×4 (02:15→19:42)
[2021-11-19] MEDS: VANCOMYCIN 1500 MG/NS 500 ML IVPB IV SCH ×4 (02:15→15:15)
[2021-11-19] MEDS: VASOPRESSIN INJECTION 20 UNIT in NS (IVPB) 100 ML IV SCH ×2 (02:38→13:20)
[2021-11-19] MEDS: RT-ALBUTEROL/IPRATROPIUM 3 ML (DUONEB) VIAL INH SCH ×6 (02:54→22:45)
[2021-11-19 04:50] LABS: BASOPHILS % (AUTO) 0 % (0-10); EOSINOPHILS % (AUTO) 0 % (0-10); HEMATOCRIT 28 % (40-54); HEMOGLOBIN 9.4 g/dL (13.3-17.7); LYMPHOCYTES % (AUTO) 0 % (12-44); MEAN CORPUSCULAR HEMOGLOBIN 32 pg (25-34); MEAN CORPUSCULAR HGB CONC 34 g/dL (32-36); MEAN CORPUSCULAR VOLUME 95 fL (80-99); MEAN PLATELET VOLUME 10.2 fL (9.0-12.2); MONOCYTES # (AUTO) 0.4 10^3/uL (0.0-1.0); MONOCYTES % (AUTO) 2 % (0-12); NEUTROPHILS # (AUTO) 15.1 10^3/uL (1.8-7.8); NEUTROPHILS % (AUTO) 95 % (42-75); PLATELET COUNT 83 10^3/uL (130-400); WHITE BLOOD COUNT 15.8 10^3/uL (4.3-11.0)
[2021-11-19 05:00] LABS: ALBUMIN 2.4 GM/DL (3.2-4.5)
[2021-11-19 05:01] LABS: CALCIUM 8.1 MG/DL (8.5-10.1)
[2021-11-19 05:03] LABS: TOTAL PROTEIN 4.6 GM/DL (6.4-8.2)
[2021-11-19 05:04] LABS: BILIRUBIN,TOTAL 0.6 MG/DL (0.1-1.0)
[2021-11-19 05:06] LABS: CREATININE SERUM 0.66 MG/DL (0.60-1.30); PHOSPHORUS 2.7 MG/DL (2.3-4.7)
[2021-11-19] MEDS: POTASSIUM CL 10MEQ/50ML IVPB 50 ML IV SCH (05:14)
[2021-11-19] MEDS: MAGNESIUM 1 GM/100 ML IVPB 100 ML IV SCH (05:14)
[2021-11-19] MEDS: KCL 20 MEQ TAB (K-DUR) PO SCH (05:15)
[2021-11-19 05:27] LABS: ANISOCYTOSIS SLIGHT; BAND NEUTROPHILS 1 %; LYMPHOCYTES % (MANUAL) 1 %; MICROCYTOSIS SLIGHT; MONOCYTES % (MANUAL) 2 %; NEUTROPHILS % (MANUAL) 96 %; PLATELET CLUMPS SOME CLUMPING SEEN; POLYCHROMASIA SLIGHT
[2021-11-19] MEDS: ENOXAPARIN 100 MG/1 ML (LOVENOX) SYR SC SCH ×2 (06:25→16:53)
[2021-11-19] MEDS: FUROSEMIDE 40 MG/4 ML INJ (LASIX) IVP SCH (08:24)
--- NOTE | 2021-11-19 09:46 | Tele-ICU Progress Note ---
Progress Note video rounds completed 61 y/o with hx of lung cancer and COPD admitted with sepsis and PNA On antibiotics Being diuresed for fluid overload PE" comfortable in bed O2 sat 100% on o2 PLAN: contine antibiotics WBC 32,00 today up from 26,000 Focused Exam Lactate Level 11/17/21 06:09: Lactic Acid Level 3.92*H 11/17/21 08:19: Lactic Acid Level 4.27*H 11/17/21 09:53: Lactic Acid Level 4.66*H Height, Weight, BMI Height: 6'0" Weight: 169lbs. oz. 76.722827ue; 35.20 BMI Method:Stated Time of Focused Exam: 03:18 Laboratory Tests 11/19/21 04:23 Results Results/Procedures Lab Laboratory Tests 11/18/21 03:45 11/19/21 04:23 Lab results: Laboratory Tests Test 11/18/21 14:00 11/19/21 04:23 Range/Units Vancomycin Level Trough 16.5 10.0-20.0 UG/ML White Blood Count 15.8 H 4.3-11.0 10^3/uL Red Blood Count 2.91 L 4.30-5.52 10^6/uL Hemoglobin 9.4 L 13.3-17.7 g/dL Hematocrit 28 L 40-54 % Mean Corpuscular Volume 95 80-99 fL Mean Corpuscular Hemoglobin 32 25-34 pg Mean Corpuscular Hemoglobin Concent 34 32-36 g/dL Red Cell Distribution Width 17.0 H 10.0-14.5 % Platelet Count 83 L 130-400 10^3/uL Mean Platelet Volume 10.2 9.0-12.2 fL Immature Granulocyte % (Auto) 2 % Neutrophils (%) (Auto) 95 H 42-75 % Lymphocytes (%) (Auto) 0 L 12-44 % Monocytes (%) (Auto) 2 0-12 % Eosinophils (%) (Auto) 0 0-10 % Basophils (%) (Auto) 0 0-10 % Neutrophils # (Auto) 15.1 H 1.8-7.8 10^3/uL Lymphocytes # (Auto) 0.0 L 1.0-4.0 10^3/uL Monocytes # (Auto) 0.4 0.0-1.0 10^3/uL Eosinophils # (Auto) 0.0 0.0-0.3 10^3/uL Basophils # (Auto) 0.0 0.0-0.1 10^3/uL Immature Granulocyte # (Auto) 0.3 H 0.0-0.1 10^3/uL Neutrophils % (Manual) 96 % Lymphocytes % (Manual) 1 % Monocytes % (Manual) 2 % Band Neutrophils 1 % Clumped Platelets SOME CLUMPING SEEN Polychromasia SLIGHT Basophilic Stippling SLIGHT Anisocytosis SLIGHT Microcytosis SLIGHT Sodium Level 130 L 135-145 MMOL/L Potassium Level 4.0 3.6-5.0 MMOL/L Chloride Level 98 98-107 MMOL/L Carbon Dioxide Level 23 21-32 MMOL/L Anion Gap 9 5-14 MMOL/L Blood Urea Nitrogen 22 H 7-18 MG/DL Creatinine 0.66 0.60-1.30 MG/DL Estimat Glomerular Filtration Rate 107 BUN/Creatinine Ratio 33 Glucose Level 113 H 70-105 MG/DL Calcium Level 8.1 L 8.5-10.1 MG/DL Corrected Calcium 9.4 8.5-10.1 MG/DL Phosphorus Level 2.7 2.3-4.7 MG/DL Magnesium Level 2.0 1.6-2.4 MG/DL Total Bilirubin 0.6 0.1-1.0 MG/DL Aspartate Amino Transf (AST/SGOT) 19 5-34 U/L Alanine Aminotransferase (ALT/SGPT) 54 0-55 U/L Alkaline Phosphatase 54 40-136 U/L Total Protein 4.6 L 6.4-8.2 GM/DL Albumin 2.4 L 3.2-4.5 GM/DL Results Labs Labs Laboratory Tests 11/18/21 14:00: Vancomycin Level Trough 16.5 11/19/21 04:23: White Blood Count 15.8H, Red Blood Count 2.91L, Hemoglobin 9.4L, Hematocrit 28L, Mean Corpuscular Volume 95, Mean Corpuscular Hemoglobin 32, Mean Corpuscular Hemoglobin Concent 34, Red Cell Distribution Width 17.0H, Platelet Count 83L, Mean Platelet Volume 10.2, Immature Granulocyte % (Auto) 2, Neutrophils (%) (Auto) 95H, Lymphocytes (%) (Auto) 0L, Monocytes (%) (Auto) 2, Eosinophils (%) (Auto) 0, Basophils (%) (Auto) 0, Neutrophils # (Auto) 15.1H, Lymphocytes # (Auto) 0.0L, Monocytes # (Auto) 0.4, Eosinophils # (Auto) 0.0, Basophils # (Auto) 0.0, Immature Granulocyte # (Auto) 0.3H, Neutrophils % (Manual) 96, Lymphocytes % (Manual) 1, Monocytes % (Manual) 2, Band Neutrophils 1, Clumped Platelets SOME CLUMPING SEEN, Polychromasia SLIGHT, Basophilic Stippling SLIGHT, Anisocytosis SLIGHT, Microcytosis SLIGHT, Sodium Level 130L, Potassium Level 4.0, Chloride Level 98, Carbon Dioxide Level 23, Anion Gap 9, Blood Urea Nitrogen 22H, Creatinine 0.66, Estimat Glomerular Filtration Rate 107, BUN/Creatinine Ratio 33, Glucose Level 113H, Calcium Level 8.1L, Corrected Calcium 9.4, Phosphorus Level 2.7, Magnesium Level 2.0, Total Bilirubin 0.6, Aspartate Amino Transf (AST/SGOT) 19, Alanine Aminotransferase (ALT/SGPT) 54, Alkaline Phosphatase 54, Total Protein 4.6L, Albumin 2.4L Microbiology 11/17/21 Urine Culture - Final, Complete NO GROWTH 11/17/21 MRSA Screen - Final, Complete 11/17/21 Blood Culture - Preliminary, Resulted Staphylococcus aureus CLARKE MANNING MD Nov 19, 2021 09:46
[2021-11-19] MEDS: NOREPINEPHRINE 8 MG/250 ML 250 ML IV SCH (10:13)
--- NOTE | 2021-11-19 10:39 | Progress Note - Hospitalist ---
Subjective HPI/CC On Admission Date Seen by Provider: Nov 19, 2021 Time Seen by Provider: 08:30 CC: SOB HPI: This is a 61 yr old male with a past medical history of lung cancer. Previously on chemotherapy with the latest dose yesterday. He presented with COPD exacerbation and wheezing. Pt was found to have severe sepsis. Pt was placed on appropriate antibiotics and IV fluids. Currently still is having some wheezing but much improved. Overall poor prognosis. Sodium level of 122. Subjective/Events-last exam Patient awake and alert not agitated. Have little bit of agitation last night but not as bad as the night before for staff. He complains of nonproductive cough which she reports has been chronic but responds to liquid cough suppressant. No hemoptysis no chills fever chest pain reported. Focused Exam Lactate Level 11/17/21 06:09: Lactic Acid Level 3.92*H 11/17/21 08:19: Lactic Acid Level 4.27*H 11/17/21 09:53: Lactic Acid Level 4.66*H Time of Focused Exam: 03:18 Objective Exam Vital Signs Vital Signs Date Time Temp Pulse Resp B/P (MAP) Pulse Ox O2 Delivery O2 Flow Rate FiO2 11/19/21 10:00 101 19 131/70 98 Nasal Cannula 3.00 11/19/21 08:00 36.1 11/17/21 05:16 24 Capillary Refill : Less Than 3 Seconds General Appearance: No Apparent Distress Respiratory: No Accessory Muscle Use, No Respiratory Distress, Other (Few scattered rhonchi no focal consolidative findings noted with diffuse mild expiratory wheezing good air movement.) Cardiovascular: Regular Rate, Rhythm, No Gallop, No JVD, No Murmur Gastrointestinal: Normal Bowel Sounds, No Organomegaly, No Pulsatile Mass, Non Tender, Soft Results/Procedures Lab Laboratory Tests 11/19/21 04:23 Patient resulted labs reviewed. Assessment/Plan Assessment and Plan Assess & Plan/Chief Complaint (1) Severe sepsis Status: Acute Likely due to right lower lobe pneumonia cultures positive for staphAureus today reported is being definitively methicillin resistant. He has been on vancomycin and is responding with decreased white count and resolution of sepsis. He still has some reactive airway issues but this is improving on Solu-Medrol will decrease from every 6 to every 8. (2) Acute respiratory failure with hypoxemia Status: Acute (3) COPD exacerbation Status: Acute (4) Superior vena cava obstruction Status: Acute (5) Hyponatremia Status: Acute (6) History of alcohol abuse Status: Chronic 7. 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 Acosta. 8. Delirium improving if he does well today likely transfer to the floor in the morning. Will initiate PT and OT in the morning. Critical Care Critically Ill Patient BRITTA DUMAS MD Nov 19, 2021 10:39
[2021-11-19] MEDS: guaiFENesin/DM (ROBITUSSIN DM) 10 ML UDC PO PRN (14:05)
[2021-11-20] MEDS: NOREPINEPHRINE 8 MG/250 ML 250 ML IV SCH (00:54)
[2021-11-20] MEDS: VASOPRESSIN INJECTION 20 UNIT in NS (IVPB) 100 ML IV SCH (00:55)
[2021-11-20] MEDS: guaiFENesin/DM (ROBITUSSIN DM) 10 ML UDC PO PRN (02:11)
[2021-11-20] MEDS: CEFEPIME 1,000 MG/NS 50 ML IVPB IV SCH ×8 (02:12→20:19)
[2021-11-20] MEDS: VANCOMYCIN 1500 MG/NS 500 ML IVPB IV SCH ×4 (02:12→15:19)
[2021-11-20] MEDS: methylPREDNISolone 125 MG (Solu-MEDROL) VIAL IV SCH ×4 (02:13→20:15)
[2021-11-20] MEDS: RT-ALBUTEROL/IPRATROPIUM 3 ML (DUONEB) VIAL INH SCH ×5 (02:38→21:24)
[2021-11-20] MEDS: ENOXAPARIN 100 MG/1 ML (LOVENOX) SYR SC SCH ×2 (05:12→15:19)
[2021-11-20 05:16] LABS: BASOPHILS % (AUTO) 0 % (0-10); EOSINOPHILS % (AUTO) 0 % (0-10); HEMATOCRIT 28 % (40-54); HEMOGLOBIN 9.5 g/dL (13.3-17.7); LYMPHOCYTES # (AUTO) 0.1 10^3/uL (1.0-4.0); LYMPHOCYTES % (AUTO) 1 % (12-44); MEAN CORPUSCULAR HEMOGLOBIN 32 pg (25-34); MEAN CORPUSCULAR HGB CONC 34 g/dL (32-36); MEAN CORPUSCULAR VOLUME 96 fL (80-99); MEAN PLATELET VOLUME 10.4 fL (9.0-12.2); MONOCYTES # (AUTO) 0.3 10^3/uL (0.0-1.0); MONOCYTES % (AUTO) 3 % (0-12); NEUTROPHILS # (AUTO) 9.3 10^3/uL (1.8-7.8); NEUTROPHILS % (AUTO) 96 % (42-75); PLATELET COUNT 83 10^3/uL (130-400); WHITE BLOOD COUNT 9.8 10^3/uL (4.3-11.0)
[2021-11-20 05:28] LABS: ALBUMIN 2.6 GM/DL (3.2-4.5)
[2021-11-20 05:29] LABS: POTASSIUM 4.1 MMOL/L (3.6-5.0)
[2021-11-20 05:30] LABS: CALCIUM 8.2 MG/DL (8.5-10.1)
[2021-11-20 05:31] LABS: TOTAL PROTEIN 4.9 GM/DL (6.4-8.2)
[2021-11-20 05:33] LABS: BILIRUBIN,TOTAL 0.8 MG/DL (0.1-1.0)
[2021-11-20 05:34] LABS: PHOSPHORUS 2.6 MG/DL (2.3-4.7)
[2021-11-20 05:35] LABS: CREATININE SERUM 0.69 MG/DL (0.60-1.30)
[2021-11-20] MEDS: FUROSEMIDE 40 MG/4 ML INJ (LASIX) IVP SCH (05:40)
[2021-11-20] MEDS: POTASSIUM CL 10MEQ/50ML IVPB 50 ML IV SCH (05:40)
[2021-11-20] MEDS: MAGNESIUM 1 GM/100 ML IVPB 100 ML IV SCH (05:41)
[2021-11-20] MEDS: KCL 20 MEQ TAB (K-DUR) PO SCH (05:41)
--- NOTE | 2021-11-20 10:08 | Physical Therapy Evaluation ---
PT Evaluation-General Medical Diagnosis Admission Date Nov 17, 2021 at 04:00 Medical Diagnosis: acute on chronic resp failure, lung CA, PNA Onset Date: Nov 17, 2021 Therapy Diagnosis Therapy Diagnosis: impaired mobility, strength, endurance Height/Weight Height (Feet): 6 Height (Inches): 0 Weight (Pounds): 169 Precautions Precautions/Isolations: Fall Prevention, Standard Precautions Weight Bear Status Right Lower Extremity: Right Weight Bearing/Tolerated Left Lower Extremity: Left Weight Bearing/Tolerated Referral Physician: Cyrus Reason for Referral: Evaluation/Treatment Medical History Pertinent Medical History: COPD, DM, HTN, Smoking Additional Medical History Past Medical History Surgeries: Abdominal, Eye Surgery COPD, Emphysema Currently Using CPAP: No Currently Using BIPAP: No Chronic Edema/Swelling, Hypertension Abdominal Hernia Cataract Loss of Vision: Denies Brain, Bone, Lung Did You Recieve Any Treatments: Yes What Type of Treatment Did You: Chemotherapy Sleep Difficulties Blood Disorders: No Reviewed History: Yes Social History Home: Detention Entry Into Home: Level Entry Prior Prior Level of Function SCALE: Activities may be completed with or without assistive devices. 0-Swhpervyzz-etxmbvl completes the activity by him/herself with no assistance from a helper. 5-Set-up or Clean-up Assistance-helper sets up or cleans up; patient completes activity. [place]idian assists only prior to or following the activity. 4-Supervision or Touching Assistance-helper provides verbal cues and/or touching/steadying and/or contact guard assistance as patient completes activity. Assistance may be provided throughout the activity or intermittently. 3-Partial/Moderate Assistance-helper does LESS THAN HALF the effort. Meridian lifts, holds or supports trunk or limbs, but provides less than half the effort. 2-Substantial/Maximal Assistance-helper does MORE THAN HALF the effort. Meridian lifts or holds trunk or limbs and provides more than half the effort. 6-Crjufytej-bkcwfj does ALL the effort. Patient does none of the effort to complete the activity. Or, the assistance of 2 or more helpers is required for the patient to complete the activity. If activity was not attempted, code reason: 7-Patient Refused. 9-Not Applicable-not attempted and the patient did not perform the activity before the current illness, exacerbation or injury. 10-Not Attempted due to Environmental Limitations-(lack of equipment, weather restraints, etc.). 88-Not Attempted due to Medical Conditions or Safety Concerns. Bed Mobility: 4 Transfers (B,C,W/C): 4 Prior Devices Use: Manual wheelchair Patient states he usually performs transfers on his own to his manual WC and wheels around at the correction. PT Evaluation-Current Subjective Patient in bed pre tx, agrees to PT, has no complaints of pain. Pt/Family Goals "to get stronger" Objective Patient Orientation: Person, Place, Situation Attachments: Galvin Catheter, IV ROM/Strength ROM Lower Extremities WNL Strength Lower Extremities grossly 3+/5 BLE Integumentary/Posture Integumentary patient has significant swelling throughout his whole body Sensory Vision: Functional Hearing: Functional Sensation Right Lower Extremit: Impaired Sensation Left Lower Extremity: Impaired Transfers Roll Left to Right (QC): 4 Lying to Sitting/Side of Bed(Q: 4 Sit to Stand (QC): 4 Chair/Axh-jd-Gdveg Xfer(QC): 4 SBA for supine to sit, sit to stand and transfer CGA. Patient had some dizziness after sitting but recovered quickly. Balance Sitting Static: Good Sitting Dynamic: Good Standing Static: Poor Standing Dynamic: Poor Treatment BLE seated exercises x20 (AP, LAQ) Assessment/Needs Patient in recliner post tx with nurse call, phone, tray, chair alarm on. Patient has impaired mobility, strength, endurance. Patient probably has the ability to ambulate a little with a rolling walker but seems content to perform transfers to his WC at the correction. 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 Goals Senior Care Goals PT Petroleum Engineering Professor Goals Time Frame: Nov 27, 2021 Roll Left & Right (QC): 6 Sit to Lying (QC): 6 Lying-Sitting on Side/Bed(QC): 6 Sit to Stand (QC): 4 (SBA) Chair/Tve-yw-Jxeol Xfer(QC): 4 (SBA) Walk 10 feet (QC): 4 (CGA) PT Plan Problem List Problem List: Activity Tolerance, Functional Strength, Safety, Balance, Gait, Transfer, Bed Mobility, ROM Treatment/Plan Treatment Plan: Continue Plan of Care Treatment Plan: Bed Mobility, Education, Functional Activity Yulissa, Functional Strength, Gait, Safety, Therapeutic Exercise, Transfers Treatment Duration: Nov 27, 2021 Frequency: 6 times per week Estimated Hrs Per Day: .25 hour per day Patient and/or Family Agrees t: Yes Safety Risks/Education Patient Education: Transfer Techniques, Correct Positioning, Safety Issues Teaching Recipient: Patient Teaching Methods: Demonstration, Discussion Response to Teaching: Reinforcement Needed Discharge Recommendations Plan Patient will perform bed mobility and transfer training, balance and endurance training ,functional strengthening, gait training, and education, to improve functional mobility and independence at home. Therapy Discharge Recommendati: 24 Hour Supervision, Other, See Comments (NH) Time/GCodes Time In: 933 Time Out: 945 Total Billed Treatment Time: 12 Total Billed Treatment 1 visit TEETEE Lai' ENOCH CASTILLO PT Nov 20, 2021 10:08
--- NOTE | 2021-11-20 10:36 | Progress Note ---
Subjective Subjective/Events-last exam Patient states that he is feeling much better today. Tolerating PO diet. Sitting up in chair today. Review of Systems Pulmonary: Dyspnea Neurological: Weakness, Incoordination Focused Exam Time of Focused Exam: 03:18 Objective Exam Last Set of Vital Signs Vital Signs Date Time Temp Pulse Resp B/P (MAP) Pulse Ox O2 Delivery O2 Flow Rate FiO2 11/20/21 10:30 97 Nasal Cannula 2.00 11/20/21 09:00 99 19 156/105 11/20/21 01:38 36.3 11/17/21 05:16 24 Capillary Refill : Less Than 3 Seconds I&O Intake and Output 11/20/21 00:00 Intake Total 2735 ml Output Total 2700 ml Balance 35 ml Intake Oral 2120 ml IV Total 615 ml Output Urine Total 2700 ml # Bowel Movements 2 General: Alert, Oriented X3, No Acute Distress Lungs: Other (diffuse wheezing, normal work of breathing) Heart: Regular Rate, No Murmurs Abdomen: Normal Bowel Sounds, Soft, No Tenderness Extremities: Other (1+ pitting edema equal bilaterally) Neuro: Normal Speech Results/Procedures Lab Laboratory Tests 11/20/21 05:01: White Blood Count 9.8, Red Blood Count 2.95L, Hemoglobin 9.5L, Hematocrit 28L, Mean Corpuscular Volume 96, Mean Corpuscular Hemoglobin 32, Mean Corpuscular Hemoglobin Concent 34, Red Cell Distribution Width 16.8H, Platelet Count 83L, Mean Platelet Volume 10.4, Immature Granulocyte % (Auto) 1, Neutrophils (%) (Auto) 96H, Lymphocytes (%) (Auto) 1L, Monocytes (%) (Auto) 3, Eosinophils (%) (Auto) 0, Basophils (%) (Auto) 0, Neutrophils # (Auto) 9.3H, Lymphocytes # (Auto) 0.1L, Monocytes # (Auto) 0.3, Eosinophils # (Auto) 0.0, Basophils # (Auto) 0.0, Immature Granulocyte # (Auto) 0.1, Sodium Level 131L, Potassium Level 4.1, Chloride Level 98, Carbon Dioxide Level 24, Anion Gap 9, Blood Urea Nitrogen 20H, Creatinine 0.69, Estimat Glomerular Filtration Rate 105, BUN/Creatinine Ratio 29, Glucose Level 114H, Calcium Level 8.2L, Corrected Calcium 9.3, Phosphorus Level 2.6, Magnesium Level 2.0, Total Bilirubin 0.8, Aspartate Amino Transf (AST/SGOT) 37H, Alanine Aminotransferase (ALT/SGPT) 112H, Alkaline Phosphatase 58, Total Protein 4.9L, Albumin 2.6L Microbiology 11/17/21 Urine Culture - Final, Complete NO GROWTH 11/17/21 MRSA Screen - Final, Complete 11/17/21 Blood Culture - Final, Complete Staphylococcus aureus Assessment/Plan Assessment/Plan (1) Acute respiratory failure with hypoxemia Status: Acute Assessment & Plan: 11/20: Improving, currently on 2 NC, MAT protocol, IS, PT/OT (2) Severe sepsis Status: Resolved (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 Assessment & Plan: 11/20: discussed the importance of keeping the head of the bed up (4) Non-small cell cancer of right lung Status: Chronic Assessment & Plan: 11/20: Currently getting treatment with chemo and radiation, last treatment (5) Metastatic lung cancer (metastasis from lung to other site) Status: Acute (6) COPD (chronic obstructive pulmonary disease) Status: Chronic Qualifiers: Qualified Codes: J44.9 - Chronic obstructive pulmonary disease, unspecified (7) Hyponatremia Status: Acute Assessment & Plan: 11/20: Improving, 2/2 lung mass (8) History of alcohol abuse Status: Chronic (9) Heavy smoker (more than 20 cigarettes per day) Status: Chronic JAZ ZACARIAS MD Nov 20, 2021 10:36
[2021-11-20] MEDS: HYDROcodone/APAP 5 MG/325 MG (LORTAB) TAB PO PRN ×3 (12:05→21:37)
--- NOTE | 2021-11-20 13:53 | Occupational Therapy Eval ---
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 Current History ED from [facility] c/o SOA, Cough, and chest pain Social History Home: [facility] Entry Into Home: Level Entry ADL-Prior Level of Function SCALE: Activities may be completed with or without assistive devices. 2-Yjxsolckbk-mhjbrco completes the activity by him/herself with no assistance from a helper. 5-Set-up or Clean-up Assistance-helper sets up or cleans up; patient completes activity. [place] assists only prior to or following the activity. 4-Supervision or Touching Assistance-helper provides verbal cues and/or touching/steadying and/or contact guard assistance as patient completes activ ity. Assistance may be provided throughout the activity or intermittently. 3-Partial/Moderate Assistance-helper does LESS THAN HALF the effort. [place] lifts, holds or supports trunk or limbs, but provides less than half the effort. 2-Substantial/Maximal Assistance-helper does MORE THAN HALF the effort. [place] lifts or holds trunk or limbs and provides more than half the effort. 9-Rfrrkyrpn-javspe does ALL the effort. Patient does none of the effort to complete the activity. Or, the assistance of 2 or more helpers is required for the patient to complete the activity. If activity was not attempted, code reason: 7-Patient Refused. 9-Not Applicable-not attempted and the patient did not perform the activity before the current illness, exacerbation or injury. 10-Not Attempted due to Environmental Limitations-(lack of equipment, weather restraints, etc.). 88-Not Attempted due to Medical Conditions or Safety Concerns. ADL PLOF Comments Pt initially reports he is independent with ADLs and functional mobility/transfers using w/c. Upon further discussion, pt indicates he has someone help him into the shower and they are there with him. He also reports being unable to complete footwear independently. Accuracy of information unknown as pt tells therapist multiple different stories about PLOF. Per clinical judgment and chart review from previous visits, pt most likely requires SBA-IND with most ADLs, assist with footwear. Self Care: Needed Some Help Functional Cognition: Needed Some Help DME/Equipment: Bath Chair, Shower OT Current Status Subjective Pt up in recliner, agreeable to OT Tx. Pt requests to return to bed to rest. He has a light nose bleed when OT entered room, but stopped after a few seconds. Mental Status/Objective Patient Orientation: Person, Situation Current Hand Dominance: Right Upper Extremity ROM WFL Upper Extremity Strength grossly 3/5 ADL-Treatment Eating (QC): 6 (Per pt) Oral Hygiene (QC): 5 (Per clinical judgment pt would be able to use toothbrush to brush teeth without assistance) On/Off Footwear (QC): 1 (Pt reports this is baseline) Other Treatments Pt up in recliner, agreeable to OT evaluation/tx. Pt provided information about PLOF, then requests to go to bed. OT gathered gripper socks and assisted pt with donning. Pt transferred from recliner to EOB, SBA for management of lines and for safety due to impulsivity. Pt sat EOB, instructed to transfer supine, pt required a couple of verbal instructions prior to completing supine transfer. Pt states if he had a w/c, he would be able to wheel around his room without bothering staff members. OT educated pt on safety of having O2, IV, and catheter, thus it is unsafe for him to do so at this time, he verbalized understanding. Post tx, pt in bed, call light in reach and all needs met, bed alarm activated. Education OT Patient Education: Correct positioning, Energy conservation, Modified ADL techniques, Progress toward Goal/Update tx plan, Purpose of tx/functional activities, Rehab process Teaching Recipient: Patient Teaching Methods: Discussion Response to Teaching: Verbalize Understanding OT Shelter Goals Shelter Goals Time Frame: Dec 01, 2021 Eating (QC): 6 Oral Hygiene (QC): 6 Toileting Hygiene (QC): 4 Shower/Bathe Self (QC): 4 Upper Body Dressing (QC): 5 Lower Body Dressing (QC): 4 Additional Goals: 1-Demonstrate ADL Tasks, 2-Verbalize Understanding, 3- ImproveStrength/Yulissa 1=Demonstrate adherence to instructed precautions during ADL tasks. 2=Patient will verbalize/demonstrate understanding of assistive devices/modifications for ADL. 3=Patient will improve strength/tolerance for activity to enable patient to perform ADL's. OT Education/Plan Problem List/Assessment Assessment: Decreased Activ Tolerance, Decreased Safety Aware, Decreased UE Strength, Impaired Cognition, Impaired Funct Balance, Impaired I ADL's, Impaired Self-Care Skills Discharge Recommendations Plan/Recommendations: Continue POC Treatment Plan/Plan of Care Patient would benefit from OT for education, treatment and training to promote independence in ADL's, mobility, safety and/or upper extremity function for ADL's. Plan of Care: ADL Retraining, Cognitive Retraining, Functional Mobility, UE Funct Exercise/Act Treatment Duration: Nov 24, 2021 Frequency: 3 times per week (3-5 times per week) Rehab Potential: Fair Time/GCodes Start Time: 13:24 Stop Time: 13:40 Total Time Billed (hr/min): 16 Billed Treatment Time 1, MECHELLE LE OT Nov 20, 2021 13:53
[2021-11-20] MEDS: LACTATED RINGERS 1,000 ML IV SCH (15:14)
[2021-11-20 15:29] VITALS: BP 122/82
[2021-11-20 15:54] VITALS: BP 149/84
[2021-11-20] MEDS ORDERED: CEPACOL SORE THROAT-COUGH LOZENGE PO PRN (17:45)
[2021-11-20 19:17] VITALS: BP 161/87
[2021-11-21 00:16] VITALS: BP 144/74
[2021-11-21] MEDS: RT-ALBUTEROL/IPRATROPIUM 3 ML (DUONEB) VIAL INH SCH ×4 (01:59→19:24)
[2021-11-21] MEDS: methylPREDNISolone 125 MG (Solu-MEDROL) VIAL IV SCH ×2 (02:43→08:52)
[2021-11-21] MEDS: CEFEPIME 1,000 MG/NS 50 ML IVPB IV SCH ×4 (02:43→08:53)
[2021-11-21] MEDS: VANCOMYCIN 1500 MG/NS 500 ML IVPB IV SCH ×2 (03:36)
[2021-11-21] MEDS: ENOXAPARIN 100 MG/1 ML (LOVENOX) SYR SC SCH ×2 (03:42→15:37)
[2021-11-21 04:16] VITALS: BP 153/85
[2021-11-21 05:45] LABS: BASOPHILS % (AUTO) 0 % (0-10); EOSINOPHILS % (AUTO) 0 % (0-10)
[2021-11-21 05:47] LABS: HEMATOCRIT 26 % (40-54); LYMPHOCYTES # (AUTO) 0.1 10^3/uL (1.0-4.0); LYMPHOCYTES % (AUTO) 1 % (12-44); MEAN CORPUSCULAR HEMOGLOBIN 32 pg (25-34); MEAN CORPUSCULAR HGB CONC 34 g/dL (32-36); MEAN CORPUSCULAR VOLUME 94 fL (80-99); MEAN PLATELET VOLUME 9.5 fL (9.0-12.2); MONOCYTES # (AUTO) 0.2 10^3/uL (0.0-1.0); MONOCYTES % (AUTO) 4 % (0-12); NEUTROPHILS # (AUTO) 5.6 10^3/uL (1.8-7.8); NEUTROPHILS % (AUTO) 93 % (42-75); PLATELET COUNT 64 10^3/uL (130-400)
[2021-11-21 05:53] LABS: ALBUMIN 2.5 GM/DL (3.2-4.5); POTASSIUM 3.6 MMOL/L (3.6-5.0)
[2021-11-21 05:54] LABS: CALCIUM 7.8 MG/DL (8.5-10.1)
[2021-11-21 05:55] LABS: TOTAL PROTEIN 4.6 GM/DL (6.4-8.2)
[2021-11-21 05:57] LABS: BILIRUBIN,TOTAL 0.6 MG/DL (0.1-1.0)
[2021-11-21 05:59] LABS: CREATININE SERUM 0.62 MG/DL (0.60-1.30); PHOSPHORUS 2.5 MG/DL (2.3-4.7)
[2021-11-21 06:02] LABS: MAGNESIUM 1.9 MG/DL (1.6-2.4)
[2021-11-21 07:21] VITALS: BP 137/83
[2021-11-21] MEDS: FUROSEMIDE 40 MG/4 ML INJ (LASIX) IVP SCH (08:53)
--- NOTE | 2021-11-21 09:02 | Occupational Ther Daily Note ---
OT Current Status-Daily Note Subjective Pt alert, sitting up in bed. Pt agrees to therapy. Due to the way pt was sitting, IV was pulled tight, nrsg checked. No c/o pain. Pt continues to want a w/c to be mobile in room, reported this to nrsg. Mental Status/Objective Patient Orientation: Person, Place, Time, Situation Attachments: Central Line, Galvin Catheter, Oxygen ADL-Treatment Pt agrees to sponge bath. Pt able to complete lower legs/feet and upper legs in long sit on bed after set up. Pt able to don/doff sock in long sit on bed. Pt then sat EOB to complete upper body and rafy area. Pt then stood with FWW and assist given to cleanse buttocks. Pt able to complete upper body dressing with SBA due to IV. Pt completed bed mobility to roll toward other side of bed. Pt t ransferred from bed to recliner using FWW with CGA for safety. After session, pt sitting in recliner with call light/phone in reach. All needs met in room. Therapy Code Descriptions/Definitions Functional [place] Measure: 0=Not Assessed/NA 4=Minimal Assistance 1=Total Assistance 5=Supervision or Setup 2=Maximal Assistance 6=Modified [place] 3=Moderate Assistance 7=Complete IndependenceSCALE: Activities may be completed with or without assistive devices. 0-Mpgookafri-fayviar completes the activity by him/herself with no assistance from a helper. 5-Set-up or Clean-up Assistance-helper sets up or cleans up; patient completes activity. [place] assists only prior to or following the activity. 4-Supervision or Touching Assistance-helper provides verbal cues and/or touching/steadying and/or contact guard assistance as patient completes activity. Assistance may be provided throughout the activity or intermittently. 3-Partial/Moderate Assistance-helper does LESS THAN HALF the effort. [place] lifts, holds or supports trunk or limbs, but provides less than half the effort. 2-Substantial/Maximal Assistance-helper does MORE THAN HALF the effort. [place] lifts or holds trunk or limbs and provides more than half the effort. 0-Abthmtref-mtazey does ALL the effort. Patient does none of the effort to complete the activity. Or, the assistance of 2 or more helpers is required for the patient to complete the activity. If activity was not attempted, code reason: 7-Patient Refused. 9-Not Applicable-not attempted and the patient did not perform the activity before the current illness, exacerbation or injury. 10-Not Attempted due to Environmental Limitations-(lack of equipment, weather restraints, etc.). 88-Not Attempted due to Medical Conditions or Safety Concerns. Eating (QC): 6 (per clinical judgment) Bathing Location: L Arm, R Arm, L Upper Leg, R Upper Leg, L Lower Leg (including foot), R Lower Leg (including foot), Chest, Abdomen, Perineal Area Shower/Bathe Self (QC): 3 Upper Body Dressing (QC): 5 On/Off Footwear: 5 OT Usp Goals Multimedia Programmer Goals Time Frame: Dec 01, 2021 Eating (QC): 6 Oral Hygiene (QC): 6 Toileting Hygiene (QC): 4 Shower/Bathe Self (QC): 4 Upper Body Dressing (QC): 5 Lower Body Dressing (QC): 4 Additional Goals: 1-Demonstrate ADL Tasks, 2-Verbalize Understanding, 3- ImproveStrength/Yulissa 1=Demonstrate adherence to instructed precautions during ADL tasks. 2=Patient will verbalize/demonstrate understanding of assistive devices/modifications for ADL. 3=Patient will improve strength/tolerance for activity to enable patient to perform ADL's. OT Education/Plan Problem List/Assessment Assessment: Decreased Activ Tolerance, Impaired Self-Care Skills Discharge Recommendations Plan/Recommendations: Continue POC Treatment Plan/Plan of Care Patient would benefit from OT for education, treatment and training to promote independence in ADL's, mobility, safety and/or upper extremity function for ADL's. Plan of Care: ADL Retraining, Cognitive Retraining, Functional Mobility, UE Funct Exercise/Act Treatment Duration: Nov 24, 2021 Frequency: 3 times per week (3-5 times per week) Rehab Potential: Fair Time/GCodes Start Time: 07:43 Stop Time: 08:21 Total Time Billed (hr/min): 38 Billed Treatment Time 1 visit-ADL 3 (38 min) MARE BANKS Nov 21, 2021 09:02
--- NOTE | 2021-11-21 10:27 | Physical Therapy Daily Note ---
PT Daily Note-Current Subjective Patient sitting EOB pre tx, agrees to PT, has no complaints of pain. Patient states it feels like his face is less swollen. Appearance Patient sitting EOB post tx with nurse call, phone, tray, all needs met. Mental Status Patient Orientation: Person, Place, Situation Attachments: Oxygen, Galvin Catheter, IV Transfers SCALE: Activities may be completed with or without assistive devices. 6-Fuqropcgzd-rvchqfd completes the activity by him/herself with no assistance from a helper. 5-Set-up or Clean-up Assistance-helper sets up or cleans up; patient completes activity. [place] assists only prior to or following the activity. 4-Supervision or Touching Assistance-helper provides verbal cues and/or touching/steadying and/or contact guard assistance as patient completes activity. Assistance may be provided throughout the activity or intermittently. 3-Partial/Moderate Assistance-helper does LESS THAN HALF the effort. [place] lifts, holds or supports trunk or limbs, but provides less than half the effort. 2-Substantial/Maximal Assistance-helper does MORE THAN HALF the effort. [place] lifts or holds trunk or limbs and provides more than half the effort. 2-Fejlsgbxb-tjexdu does ALL the effort. Patient does none of the effort to complete the activity. Or, the assistance of 2 or more helpers is required for the patient to complete the activity. If activity was not attempted, code reason: 7-Patient Refused. 9-Not Applicable-not attempted and the patient did not perform the activity before the current illness, exacerbation or injury. 10-Not Attempted due to Environmental Limitations-(lack of equipment, weather restraints, etc.). 88-Not Attempted due to Medical Conditions or Safety Concerns. Sit to Stand (QC): 4 Chair/Oui-kk-Isuyx Xfer(QC): 4 Weight Bearing Right Lower Extremity: Right Weight Bearing/Tolerated Left Lower Extremity: Left Weight Bearing/Tolerated Gait Training Distance: 20', 10' Walk 10 feet (QC): 4 Gait Persons Needed: 1 Gait Assistive Device: FWW Patient wants to ambulate to the restroom to wash his hands, CGA, walks back to his bed afterward (total of 20'), then stands again and ambulates to the window and back to his bed (total of 10') Exercises Standing: Heel/toe raises, Mini squats Standing Reps: 10 Treatments transfers, ambulation, LE exercise Assessment Current Status: Fair Progress improving general mobility but patient has poor endurance and needs several rest breaks PT Snf Goals Telecommunications Facility Examiner Goals PT Snf Goals Time Frame: Nov 27, 2021 Roll Left & Right (QC): 6 Sit to Lying (QC): 6 Lying-Sitting on Side/Bed(QC): 6 Sit to Stand (QC): 4 (SBA) Chair/Mao-pq-Bbwbt Xfer(QC): 4 (SBA) Walk 10 feet (QC): 4 (CGA) PT Plan Problem List Problem List: Activity Tolerance, Functional Strength, Safety, Balance, Gait, Transfer, Bed Mobility, ROM Treatment/Plan Treatment Plan: Continue Plan of Care Treatment Plan: Bed Mobility, Education, Functional Activity Yulissa, Functional Strength, Gait, Safety, Therapeutic Exercise, Transfers Treatment Duration: Nov 27, 2021 Frequency: 6 times per week Estimated Hrs Per Day: .25 hour per day Patient and/or Family Agrees t: Yes Safety Risks/Education Patient Education: Gait Training, Transfer Techniques, Correct Positioning, Safety Issues Teaching Recipient: Patient Teaching Methods: Demonstration, Discussion Response to Teaching: Reinforcement Needed Time/GCodes Time In: 1008 Time Out: 1019 Total Billed Treatment Time: 11 Total Billed Treatment 1 visit FA Dalia' ENOCH CASTILLO PT Nov 21, 2021 10:27
[2021-11-21 11:22] VITALS: BP 141/77
[2021-11-21] MEDS: TRIM/SULFAMETH 160/800 (SEPTRA DS) TAB PO SCH ×2 (11:52→17:16)
[2021-11-21] MEDS: HYDROcodone/APAP 5 MG/325 MG (LORTAB) TAB PO PRN (11:53)
[2021-11-21] MEDS: LACTATED RINGERS 1,000 ML IV SCH (15:21)
[2021-11-21] MEDS ORDERED: MENTHOL 5.8 MG MM PRN (15:30)
[2021-11-21 15:33] VITALS: BP 153/79
[2021-11-21] MEDS ORDERED: CEPACOL SORE THROAT-COUGH LOZENGE PO PRN (15:45)
[2021-11-21 19:50] VITALS: BP 135/85
--- NOTE | 2021-11-21 20:17 | Progress Note ---
Subjective Subjective/Events-last exam Patient doing well this AM. Asking about going back to [facility]. Sitting up in chair this AM. Tolerating PO diet and ambulation. Review of Systems General: [place] Pulmonary: Dyspnea, Cough Neurological: Weakness, Incoordination Focused Exam Time of Focused Exam: 03:18 Objective Exam Last Set of Vital Signs Vital Signs Date Time Temp Pulse Resp B/P (MAP) Pulse Ox O2 Delivery O2 Flow Rate FiO2 11/21/21 19:50 37.4 112 20 135/85 (102) 96 Room Air 11/21/21 15:33 1.00 11/20/21 15:29 28 Capillary Refill : Less Than 3 Seconds I&O Intake and Output 11/20/21 23:59 Intake Total 3635 ml Output Total 4475 ml Balance -840 ml Intake Oral 2220 ml IV Total 1415 ml Output Urine Total 4475 ml # Bowel Movements 1 General: Alert, Oriented X3, Cooperative, No Acute Distress Lungs: Normal Air Movement, Other (Basilar end exp wheezing, normal work of breathing) Heart: Regular Rate, No Murmurs Abdomen: Normal Bowel Sounds, Soft, No Tenderness, No Masses Extremities: Other (1+ pitting edema) Neuro: Normal Speech Results/Procedures Lab Laboratory Tests 11/21/21 05:40: White Blood Count 6.0, Red Blood Count 2.78L, Hemoglobin 9.0L, Hematocrit 26L, Mean Corpuscular Volume 94, Mean Corpuscular Hemoglobin 32, Mean Corpuscular Hemoglobin Concent 34, Red Cell Distribution Width 16.4H, Platelet Count 64L, Mean Platelet Volume 9.5, Immature Granulocyte % (Auto) 2, Neutrophils (%) (Auto) 93H, Lymphocytes (%) (Auto) 1L, Monocytes (%) (Auto) 4, Eosinophils (%) (Auto) 0, Basophils (%) (Auto) 0, Neutrophils # (Auto) 5.6, Lymphocytes # (Auto) 0.1L, Monocytes # (Auto) 0.2, Eosinophils # (Auto) 0.0, Basophils # (Auto) 0.0, Immature Granulocyte # (Auto) 0.1, Percent Immature Platelet Fraction 2.8, Sodium Level 130L, Potassium Level 3.6, Chloride Level 96L, Carbon Dioxide Level 23, Anion Gap 11, Blood Urea Nitrogen 19H, Creatinine 0.62, Estimat Glomerular Filtration Rate 109, BUN/Creatinine Ratio 31, Glucose Level 139H, Calcium Level 7.8L, Corrected Calcium 9.0, Phosphorus Level 2.5, Magnesium Level 1.9, Total Bilirubin 0.6, Aspartate Amino Transf (AST/SGOT) 31, Alanine Aminotransferase (ALT/SGPT) 107H, Alkaline Phosphatase 63, Total Protein 4.6L, Albumin 2.5L Microbiology 11/17/21 Urine Culture - Final, Complete NO GROWTH 11/17/21 MRSA Screen - Final, Complete 11/17/21 Blood Culture - Final, Complete Staphylococcus aureus Assessment/Plan Assessment/Plan (1) Acute respiratory failure with hypoxemia Status: Acute Assessment & Plan: 11/20: Improving, currently on 2 NC, MAT protocol, IS, PT/OT 11/21: Titrated to 1-2 NC, D/c interiano and IVFs, encourage ambulation and IS, plan to d/c in AM to PCR (2) Severe sepsis Status: Resolved (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 Assessment & Plan: 11/20: discussed the importance of keeping the head of the bed up 11/21: Some improvement from yesterday (4) Non-small cell cancer of right lung Status: Chronic Assessment & Plan: 11/20: Currently getting treatment with chemo and radiation, last treatment (5) Metastatic lung cancer (metastasis from lung to other site) Status: Acute (6) COPD (chronic obstructive pulmonary disease) Status: Chronic Qualifiers: Qualified Codes: J44.9 - Chronic obstructive pulmonary disease, unspecified (7) Hyponatremia Status: Acute Assessment & Plan: 11/20: Improving, 2/2 lung mass (8) History of alcohol abuse Status: Chronic (9) Heavy smoker (more than 20 cigarettes per day) Status: Chronic JAZ ZACARIAS MD Nov 21, 2021 20:17
[2021-11-22] VITALS: BP 157/83
[2021-11-22] MEDS: HYDROcodone/APAP 5 MG/325 MG (LORTAB) TAB PO PRN ×2 (00:18→09:39)
[2021-11-22] MEDS: RT-ALBUTEROL/IPRATROPIUM 3 ML (DUONEB) VIAL INH SCH ×4 (02:56→21:17)
[2021-11-22] MEDS: ENOXAPARIN 100 MG/1 ML (LOVENOX) SYR SC SCH ×2 (03:30→16:42)
[2021-11-22 04:08] VITALS: BP 159/88
[2021-11-22] MEDS: ACETAMINOPHEN 500 MG TAB (TYLENOL) PO PRN (05:26)
[2021-11-22 05:43] LABS: BASOPHILS % (AUTO) 0 % (0-10); EOSINOPHILS % (AUTO) 0 % (0-10); HEMATOCRIT 31 % (40-54); HEMOGLOBIN 10.5 g/dL (13.3-17.7); LYMPHOCYTES # (AUTO) 0.3 10^3/uL (1.0-4.0); LYMPHOCYTES % (AUTO) 5 % (12-44); MEAN CORPUSCULAR HEMOGLOBIN 32 pg (25-34); MEAN CORPUSCULAR HGB CONC 34 g/dL (32-36); MEAN CORPUSCULAR VOLUME 93 fL (80-99); MEAN PLATELET VOLUME 9.8 fL (9.0-12.2); MONOCYTES # (AUTO) 0.2 10^3/uL (0.0-1.0); MONOCYTES % (AUTO) 3 % (0-12); NEUTROPHILS # (AUTO) 5.7 10^3/uL (1.8-7.8); NEUTROPHILS % (AUTO) 86 % (42-75); PLATELET COUNT 62 10^3/uL (130-400); WHITE BLOOD COUNT 6.7 10^3/uL (4.3-11.0)
[2021-11-22 05:52] LABS: ALBUMIN 2.8 GM/DL (3.2-4.5); POTASSIUM 3.5 MMOL/L (3.6-5.0)
[2021-11-22 05:53] LABS: CALCIUM 8.3 MG/DL (8.5-10.1)
[2021-11-22 05:55] LABS: TOTAL PROTEIN 5.3 GM/DL (6.4-8.2)
[2021-11-22 05:56] LABS: BILIRUBIN,TOTAL 0.9 MG/DL (0.1-1.0)
[2021-11-22 05:58] LABS: CREATININE SERUM 0.72 MG/DL (0.60-1.30); PHOSPHORUS 1.3 MG/DL (2.3-4.7)
[2021-11-22 06:01] LABS: MAGNESIUM 1.7 MG/DL (1.6-2.4)
[2021-11-22] MEDS: predniSONE 20 MG TAB PO SCH (06:07)
[2021-11-22 07:39] VITALS: BP 141/80
[2021-11-22] MEDS ORDERED: CETIRIZINE HCL (ZYRTEC) 10 MG TAB PO SCH (09:00)
[2021-11-22] MEDS: lisINopril 10 MG (PRINIVIL) TABLET PO SCH (09:35)
[2021-11-22] MEDS: LORATADINE (CLARITIN) 10 MG TAB PO SCH (09:35)
[2021-11-22] MEDS: FUROSEMIDE 40 MG/4 ML INJ (LASIX) IVP SCH (09:35)
[2021-11-22] MEDS: TRIM/SULFAMETH 160/800 (SEPTRA DS) TAB PO SCH ×2 (09:36→17:48)
[2021-11-22 11:31] VITALS: BP 119/76
--- NOTE | 2021-11-22 12:44 | Progress Note ---
Subjective Subjective/Events-last exam Patient states that he is feeling pretty good this AM. Ambulating to bathroom and back. Tolerating PO diet. ON had some fevers Review of Systems Pulmonary: Dyspnea, Cough Cardiovascular: No: Chest Pain, Palpitations, Edema Gastrointestinal: No: Nausea, Vomiting, Abdominal Pain, Diarrhea, Constipation Neurological: Weakness; No: Confusion Focused Exam Time of Focused Exam: 03:18 Objective Exam Last Set of Vital Signs Vital Signs Date Time Temp Pulse Resp B/P (MAP) Pulse Ox O2 Delivery O2 Flow Rate FiO2 11/22/21 11:31 37.3 112 18 119/76 (90) 99 Room Air 11/22/21 08:00 1.00 11/20/21 15:29 28 Capillary Refill : Less Than 3 Seconds I&O Intake and Output 11/22/21 00:00 Intake Total 7237.5 ml Output Total 38504 ml Balance -3812.5 ml Intake Oral 6880 ml IV Total 357.5 ml Output Urine Total 90504 ml # Bowel Movements 3 General: Alert, Oriented X3, Mild Distress (with exertion) Lungs: Other (end exp wheezing at the bases, normal work of breathing at rest) Abdomen: Normal Bowel Sounds, Soft Extremities: No Tenderness/Swelling Neuro: Normal Speech Psych/Mental Status: Mental Status NL, Mood NL Results/Procedures Lab Laboratory Tests 11/22/21 05:35: White Blood Count 6.7, Red Blood Count 3.29L, Hemoglobin 10.5L, Hematocrit 31L, Mean Corpuscular Volume 93, Mean Corpuscular Hemoglobin 32, Mean Corpuscular Hemoglobin Concent 34, Red Cell Distribution Width 16.3H, Platelet Count 62L, Mean Platelet Volume 9.8, Immature Granulocyte % (Auto) 6, Neutrophils (%) (Auto) 86H, Lymphocytes (%) (Auto) 5L, Monocytes (%) (Auto) 3, Eosinophils (%) (Auto) 0, Basophils (%) (Auto) 0, Neutrophils # (Auto) 5.7, Lymphocytes # (Auto) 0.3L, Monocytes # (Auto) 0.2, Eosinophils # (Auto) 0.0, Basophils # (Auto) 0.0, Immature Granulocyte # (Auto) 0.4H, Sodium Level 131L, Potassium Level 3.5L, Chloride Level 95L, Carbon Dioxide Level 24, Anion Gap 12, Blood Urea Nitrogen 17, Creatinine 0.72, Estimat Glomerular Filtration Rate 104, BUN/Creatinine Ratio 24, Glucose Level 86, Calcium Level 8.3L, Corrected Calcium 9.3, Phosphorus Level 1.3L, Magnesium Level 1.7, Total Bilirubin 0.9, Aspartate Amino Transf (AST/SGOT) 33, Alanine Aminotransferase (ALT/SGPT) 120H, Alkaline Phosphatase 65, Total Protein 5.3L, Albumin 2.8L Microbiology 11/17/21 Urine Culture - Final, Complete NO GROWTH 11/17/21 MRSA Screen - Final, Complete 11/17/21 Blood Culture - Final, Complete Staphylococcus aureus Assessment/Plan Assessment/Plan (1) Acute respiratory failure with hypoxemia Status: Acute Assessment & Plan: 11/20: Improving, currently on 2 NC, MAT protocol, IS, PT/OT 11/21: Titrated to 1-2 NC, D/c interiano and IVFs, encourage ambulation and IS, plan to d/c in AM to PCR 11/22: @ baseline, up with 1SBA (2) Severe sepsis Status: Resolved Assessment & Plan: 11/22: fevers ON, with continue to monitor (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 Assessment & Plan: 11/20: discussed the importance of keeping the head of the bed up 11/21: Some improvement from yesterday (4) Non-small cell cancer of right lung Status: Chronic Assessment & Plan: 11/20: Currently getting treatment with chemo and radiation, last treatment (5) Metastatic lung cancer (metastasis from lung to other site) Status: Acute (6) COPD (chronic obstructive pulmonary disease) Status: Chronic Qualifiers: Qualified Codes: J44.9 - Chronic obstructive pulmonary disease, unspecified (7) Hyponatremia Status: Acute Assessment & Plan: 11/20: Improving, 2/2 lung mass (8) History of alcohol abuse Status: Chronic (9) Heavy smoker (more than 20 cigarettes per day) Status: Chronic JAZ ZACARIAS MD Nov 22, 2021 12:44
--- NOTE | 2021-11-22 13:19 | Occupational Ther Daily Note ---
OT Current Status-Daily Note Subjective Pt sitting EOB, alert. Pt agrees to therapy. Pt states he was thinking that he would go back to [facility] today. Mental Status/Objective Patient Orientation: Person, Place, Time, Situation Attachments: IV ADL-Treatment Pt ambulated to bathroom using FWW with SBA. Transferred on/off toilet using grabbars with CGA. Pt able to manipulate clothing by self with CGA for safety. Pt left in care of PT. All needs met. Therapy Code Descriptions/Definitions Functional [place] Measure: 0=Not Assessed/NA 4=Minimal Assistance 1=Total Assistance 5=Supervision or Setup 2=Maximal Assistance 6=Modified [place] 3=Moderate Assistance 7=Complete IndependenceSCALE: Activities may be completed with or without assistive devices. 9-Ymirnmardg-abcawue completes the activity by him/herself with no assistance from a helper. 5-Set-up or Clean-up Assistance-helper sets up or cleans up; patient completes activity. [place] assists only prior to or following the activity. 4-Supervision or Touching Assistance-helper provides verbal cues and/or touching/steadying and/or contact guard assistance as patient completes activity. Assistance may be provided throughout the activity or intermittently. 3-Partial/Moderate Assistance-helper does LESS THAN HALF the effort. [place] lifts, holds or supports trunk or limbs, but provides less than half the effort. 2-Substantial/Maximal Assistance-helper does MORE THAN HALF the effort. [place] lifts or holds trunk or limbs and provides more than half the effort. 3-Wnhtruzjf-xvbgrh does ALL the effort. Patient does none of the effort to complete the activity. Or, the assistance of 2 or more helpers is required for the patient to complete the activity. If activity was not attempted, code reason: 7-Patient Refused. 9-Not Applicable-not attempted and the patient did not perform the activity before the current illness, exacerbation or injury. 10-Not Attempted due to Environmental Limitations-(lack of equipment, weather restraints, etc.). 88-Not Attempted due to Medical Conditions or Safety Concerns. OT Lap Winding Machine Operator Goals Lap Winding Machine Operator Goals Time Frame: Dec 01, 2021 Eating (QC): 6 Oral Hygiene (QC): 6 Toileting Hygiene (QC): 4 Shower/Bathe Self (QC): 4 Upper Body Dressing (QC): 5 Lower Body Dressing (QC): 4 Additional Goals: 1-Demonstrate ADL Tasks, 2-Verbalize Understanding, 3- ImproveStrength/Yulissa 1=Demonstrate adherence to instructed precautions during ADL tasks. 2=Patient will verbalize/demonstrate understanding of assistive devices/m odifications for ADL. 3=Patient will improve strength/tolerance for activity to enable patient to perform ADL's. OT Education/Plan Problem List/Assessment Assessment: Decreased Activ Tolerance, Impaired Self-Care Skills Discharge Recommendations Plan/Recommendations: Continue POC Treatment Plan/Plan of Care Patient would benefit from OT for education, treatment and training to promote independence in ADL's, mobility, safety and/or upper extremity function for ADL's. Plan of Care: ADL Retraining, Cognitive Retraining, Functional Mobility, UE Funct Exercise/Act Treatment Duration: Nov 24, 2021 Frequency: 3 times per week (3-5 times per week) Rehab Potential: Fair Time/GCodes Start Time: 12:40 Stop Time: 12:58 Total Time Billed (hr/min): 18 Billed Treatment Time 1 visit-FA 1 (18 min) MARE BANKS Nov 22, 2021 13:19
--- NOTE | 2021-11-22 14:10 | Physical Therapy Daily Note ---
PT Daily Note-Current Subjective Upon arrival, OT was present, finishing with pt. Pt agrees to PT. Pain Comment: Pt reports no pain at this time. Mental Status Patient Orientation: Person, Place, Time, Situation Transfers SCALE: Activities may be completed with or without assistive devices. 4-Tcqipyjhlx-nusgkbb completes the activity by him/herself with no assistance from a helper. 5-Set-up or Clean-up Assistance-helper sets up or cleans up; patient completes activity. [place] assists only prior to or following the activity. 4-Supervision or Touching Assistance-helper provides verbal cues and/or touching/steadying and/or contact guard assistance as patient completes activity. Assistance may be provided throughout the activity or intermittently. 3-Partial/Moderate Assistance-helper does LESS THAN HALF the effort. [place] lifts, holds or supports trunk or limbs, but provides less than half the effort. 2-Substantial/Maximal Assistance-helper does MORE THAN HALF the effort. [place] lifts or holds trunk or limbs and provides more than half the effort. 9-Fyqsttvrs-puicxl does ALL the effort. Patient does none of the effort to complete the activity. Or, the assistance of 2 or more helpers is required for the patient to complete the activity. If activity was not attempted, code reason: 7-Patient Refused. 9-Not Applicable-not attempted and the patient did not perform the activity before the current illness, exacerbation or injury. 10-Not Attempted due to Environmental Limitations-(lack of equipment, weather restraints, etc.). 88-Not Attempted due to Medical Conditions or Safety Concerns. Sit to Stand (QC): 4 Weight Bearing Right Lower Extremity: Right Weight Bearing/Tolerated Left Lower Extremity: Left Weight Bearing/Tolerated Gait Training Does the Patient Walk?: Yes Distance: 150' Walk 10 feet (QC): 4 Walk 50 ft with 2 Turns(QC): 4 Walk 150 ft (QC): 4 Gait Persons Needed: 1 Gait Assistive Device: FWW Pt ambulated with slow and steady GT. Pt showed no LOB, but had to have a short standing RB, due to SOA, pt recovered quickly. Exercises Supine Ex: Heel Slides, Straight leg raise Supine Reps: 10 Seated Therapy Exercises: Ankle pumps, Long arc quads, Hip flexion, Hamstring Curls, Hip abd/add Seated Reps: 10 Treatments Pt performed and completed all Exs listed above. Pt ambulated from room to half way down the guzman and back to room, for a rest break. Once PT was concluded, pt was seated back in recliner, with call light and tray in reach, with all needs met. Pt checks with RN if pt needed his chair alarm on, RN states he is good with using his call light. Assessment Current Status: Good Progress Pt would benefit from continued PT to improve on strength, and activity tolerance. PT Administrative Personal Assistant Goals Detention Goals PT Administrative Personal Assistant Goals Time Frame: Nov 27, 2021 Roll Left & Right (QC): 6 Sit to Lying (QC): 6 Lying-Sitting on Side/Bed(QC): 6 Sit to Stand (QC): 4 (SBA) Chair/Hpc-lx-Fcqhj Xfer(QC): 4 (SBA) Walk 10 feet (QC): 4 (CGA) PT Plan Problem List Problem List: Activity Tolerance, Functional Strength Treatment/Plan Treatment Plan: Continue Plan of Care Treatment Plan: Bed Mobility, Education, Functional Activity Yulissa, Functional Strength, Gait, Safety, Therapeutic Exercise, Transfers Treatment Duration: Nov 27, 2021 Frequency: 6 times per week Estimated Hrs Per Day: .25 hour per day Patient and/or Family Agrees t: Yes Safety Risks/Education Patient Education: Transfer Techniques Teaching Recipient: Patient Teaching Methods: Demonstration, Discussion Response to Teaching: Verbalize Understanding Time/GCodes Time In: 1259 Time Out: 1326 Total Billed Treatment Time: 27 Total Billed Treatment 1, EX 15, GT 12 PAULA DURÁN TRUCK HEADLIGHT ASSEMBLER Nov 22, 2021 14:10
[2021-11-22 15:13] VITALS: BP 149/84
[2021-11-22 19:16] VITALS: BP 145/81
[2021-11-23] VITALS: BP 130/81
[2021-11-23] MEDS: ACETAMINOPHEN 500 MG TAB (TYLENOL) PO PRN (02:04)
[2021-11-23] MEDS: RT-ALBUTEROL/IPRATROPIUM 3 ML (DUONEB) VIAL INH SCH ×2 (02:57→07:57)
[2021-11-23] MEDS: ENOXAPARIN 100 MG/1 ML (LOVENOX) SYR SC SCH (03:33)
[2021-11-23 04:23] VITALS: BP 128/70
[2021-11-23 05:56] LABS: BASOPHILS % (AUTO) 0 % (0-10); LYMPHOCYTES # (AUTO) 0.5 10^3/uL (1.0-4.0); MEAN CORPUSCULAR HEMOGLOBIN 32 pg (25-34); MEAN CORPUSCULAR HGB CONC 35 g/dL (32-36); MEAN CORPUSCULAR VOLUME 92 fL (80-99)
[2021-11-23 05:58] LABS: EOSINOPHILS % (AUTO) 0 % (0-10); HEMATOCRIT 29 % (40-54); HEMOGLOBIN 9.9 g/dL (13.3-17.7); LYMPHOCYTES % (AUTO) 8 % (12-44); MEAN PLATELET VOLUME 10.1 fL (9.0-12.2); MONOCYTES # (AUTO) 0.2 10^3/uL (0.0-1.0); MONOCYTES % (AUTO) 3 % (0-12); NEUTROPHILS # (AUTO) 5.2 10^3/uL (1.8-7.8); NEUTROPHILS % (AUTO) 85 % (42-75); PLATELET COUNT 53 10^3/uL (130-400); WHITE BLOOD COUNT 6.1 10^3/uL (4.3-11.0)
[2021-11-23] MEDS: predniSONE 20 MG TAB PO SCH (06:08)
[2021-11-23 06:09] LABS: ALBUMIN 2.6 GM/DL (3.2-4.5); POTASSIUM 3.2 MMOL/L (3.6-5.0)
[2021-11-23 06:10] LABS: CALCIUM 8.1 MG/DL (8.5-10.1)
[2021-11-23 06:12] LABS: TOTAL PROTEIN 5.1 GM/DL (6.4-8.2)
[2021-11-23 06:15] LABS: CREATININE SERUM 0.71 MG/DL (0.60-1.30); PHOSPHORUS 1.8 MG/DL (2.3-4.7)
[2021-11-23 06:18] LABS: MAGNESIUM 1.7 MG/DL (1.6-2.4)
[2021-11-23 07:44] VITALS: BP 120/77
--- NOTE | 2021-11-23 07:56 | Occupational Ther Daily Note ---
OT Current Status-Daily Note Subjective Pt alert, sitting EOB. Pt agrees to therapy. No c/o pain. Mental Status/Objective Patient Orientation: Person, Place, Time, Situation ADL-Treatment Pt agrees to sponge bath. Pt requested to use bathroom. SBA to ambulate to bathroom then able to transfer on/off toilet using grabbar and FWW by self. Pt able to manipulate clothing and cleanse self using FWW to stabilize by self. Pt then ambulated back to EOB to complete sponge bath with bath pack. Pt able to don/doff socks by self and complete sponge bath with SBA for safety. Pt able to don/doff hospital gown by self. Eating breakfast independently. After session, pt sitting EOB eating breakfast. Call light/phone in reach. All needs met in room. Therapy Code Descriptions/Definitions Functional [place] Measure: 0=Not Assessed/NA 4=Minimal Assistance 1=Total Assistance 5=Supervision or Setup 2=Maximal Assistance 6=Modified [place] 3=Moderate Assistance 7=Complete IndependenceSCALE: Activities may be completed with or without assistive devices. 6-Zayuywejre-demramy completes the activity by him/herself with no assistance from a helper. 5-Set-up or Clean-up Assistance-helper sets up or cleans up; patient completes activity. [place] assists only prior to or following the activity. 4-Supervision or Touching Assistance-helper provides verbal cues and/or touching/steadying and/or contact guard assistance as patient completes activity. Assistance may be provided throughout the activity or intermittently. 3-Partial/Moderate Assistance-helper does LESS THAN HALF the effort. [place] lifts, holds or supports trunk or limbs, but provides less than half the effort. 2-Substantial/Maximal Assistance-helper does MORE THAN HALF the effort. [place] lifts or holds trunk or limbs and provides more than half the effort. 6-Wuiglpawr-elxxjl does ALL the effort. Patient does none of the effort to complete the activity. Or, the assistance of 2 or more helpers is required for the patient to complete the activity. If activity was not attempted, code reason: 7-Patient Refused. 9-Not Applicable-not attempted and the patient did not perform the activity before the current illness, exacerbation or injury. 10-Not Attempted due to Environmental Limitations-(lack of equipment, weather restraints, etc.). 88-Not Attempted due to Medical Conditions or Safety Concerns. Eating (QC): 6 Shower/Bathe Self (QC): 4 Upper Body Dressing (QC): 5 On/Off Footwear: 5 Toileting Hygiene (QC): 6 Toilet Transfer (QC): 4 OT Mcc Goals Mcc Goals Time Frame: Dec 01, 2021 Eating (QC): 6 Oral Hygiene (QC): 6 Toileting Hygiene (QC): 4 Shower/Bathe Self (QC): 4 Upper Body Dressing (QC): 5 Lower Body Dressing (QC): 4 Additional Goals: 1-Demonstrate ADL Tasks, 2-Verbalize Understanding, 3- ImproveStrength/Yulissa 1=Demonstrate adherence to instructed precautions during ADL tasks. 2=Patient will verbalize/demonstrate understanding of assistive devices/modifications for ADL. 3=Patient will improve strength/tolerance for activity to enable patient to perform ADL's. OT Education/Plan Problem List/Assessment Assessment: Decreased Activ Tolerance Discharge Recommendations Plan/Recommendations: Continue POC Treatment Plan/Plan of Care Patient would benefit from OT for education, treatment and training to promote independence in ADL's, mobility, safety and/or upper extremity function for ADL's. Plan of Care: ADL Retraining, Cognitive Retraining, Functional Mobility, UE Funct Exercise/Act Treatment Duration: Nov 24, 2021 Frequency: 3 times per week (3-5 times per week) Rehab Potential: Fair Time/GCodes Start Time: 07:30 Stop Time: 07:48 Total Time Billed (hr/min): 18 Billed Treatment Time 1 visit-ADL 1 (18 min) MARE BANKS Nov 23, 2021 07:56
[2021-11-23] MEDS: LORATADINE (CLARITIN) 10 MG TAB PO SCH (09:18)
[2021-11-23] MEDS: FUROSEMIDE 40 MG/4 ML INJ (LASIX) IVP SCH (09:18)
[2021-11-23] MEDS: lisINopril 10 MG (PRINIVIL) TABLET PO SCH (09:18)
[2021-11-23] MEDS: TRIM/SULFAMETH 160/800 (SEPTRA DS) TAB PO SCH (09:18)
--- NOTE | 2021-11-23 09:59 | Physical Therapy Daily Note ---
PT Daily Note-Current Subjective Patient is very agreeable to participate with therapy. Mental Status Patient Orientation: Person, Time, Situation Transfers SCALE: Activities may be completed with or without assistive devices. 3-Xxldxprfmn-wcoqfpx completes the activity by him/herself with no assistance from a helper. 5-Set-up or Clean-up Assistance-helper sets up or cleans up; patient completes activity. [place] assists only prior to or following the activity. 4-Supervision or Touching Assistance-helper provides verbal cues and/or touching/steadying and/or contact guard assistance as patient completes activity. Assistance may be provided throughout the activity or intermittently. 3-Partial/Moderate Assistance-helper does LESS THAN HALF the effort. [place] lifts, holds or supports trunk or limbs, but provides less than half the effort. 2-Substantial/Maximal Assistance-helper does MORE THAN HALF the effort. [place] lifts or holds trunk or limbs and provides more than half the effort. 8-Vgluqznuw-cosqaw does ALL the effort. Patient does none of the effort to complete the activity. Or, the assistance of 2 or more helpers is required for the patient to complete the activity. If activity was not attempted, code reason: 7-Patient Refused. 9-Not Applicable-not attempted and the patient did not perform the activity before the current illness, exacerbation or injury. 10-Not Attempted due to Environmental Limitations-(lack of equipment, weather restraints, etc.). 88-Not Attempted due to Medical Conditions or Safety Concerns. Sit to Stand (QC): 4 Weight Bearing Right Lower Extremity: Right Weight Bearing/Tolerated Left Lower Extremity: Left Weight Bearing/Tolerated Gait Training Distance: 175' Walk 10 feet (QC): 4 Walk 50 ft with 2 Turns(QC): 4 Walk 150 ft (QC): 4 Gait Assistive Device: FWW extended UE's with FWW use /functional gait sequence Assessment Patient to return to [place] on this date per report. Patient tolerated treatment well and remains up in recliner with family present. PT Senior Abap Developer Goals Alf Goals PT Senior Abap Developer Goals Time Frame: Nov 27, 2021 Roll Left & Right (QC): 6 Sit to Lying (QC): 6 Lying-Sitting on Side/Bed(QC): 6 Sit to Stand (QC): 4 (SBA) Chair/Ykg-qa-Ryygg Xfer(QC): 4 (SBA) Walk 10 feet (QC): 4 (CGA) PT Plan Treatment/Plan Treatment Plan: Continue Plan of Care Treatment Plan: Bed Mobility, Education, Functional Activity Yulissa, Functional Strength, Gait, Safety, Therapeutic Exercise, Transfers Treatment Duration: Nov 27, 2021 Frequency: 6 times per week Estimated Hrs Per Day: .25 hour per day Patient and/or Family Agrees t: Yes Time/GCodes Time In: 841 Time Out: 851 Total Billed Treatment Time: 10 Total Billed Treatment 1 visit FA 10 min LEANDRO PHILLIPS PT Nov 23, 2021 09:59
[2021-11-23 11:37] VITALS: BP 102/57
[2021-11-23] MEDS: HYDROcodone/APAP 5 MG/325 MG (LORTAB) TAB PO PRN (12:39)
[2021-11-23] MEDS ORDERED: KCL 20 MEQ TAB (K-DUR) PO NR (13:00)
--- NOTE | 2021-11-23 13:01 | Discharge Summary ---
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 Patient was found to be in severe sepsis and blood cultures later determined patient had MRSA bacteremia. He was successfully extubated and started with therapy. Patient has some spikes in his temperature but fever curve is improving and WBCs have resolved. He will return to [facility] to continue rehab with PT/OT. Labs and Pending Lab Test: Laboratory Tests 11/23/21 05:18: Sodium Level 129L, Potassium Level 3.2L, Chloride Level 92L, Carbon Dioxide Level 26, Anion Gap 11, Blood Urea Nitrogen 13, Creatinine 0.71, Estimat Glomerular Filtration Rate 104, BUN/Creatinine Ratio 18, Glucose Level 91, Calcium Level 8.1L, Corrected Calcium 9.2, Phosphorus Level 1.8L, Magnesium Level 1.7, Total Bilirubin 1.0, Aspartate Amino Transf (AST/SGOT) 27, Alanine Am inotransferase (ALT/SGPT) 92H, Alkaline Phosphatase 64, Total Protein 5.1L, Albumin 2.6L 11/23/21 05:33: White Blood Count 6.1, Red Blood Count 3.11L, Hemoglobin 9.9L, Hematocrit 29L, Mean Corpuscular Volume 92, Mean Corpuscular Hemoglobin 32, Mean Corpuscular Hemoglobin Concent 35, Red Cell Distribution Width 16.1H, Platelet Count 53L, Mean Platelet Volume 10.1, Immature Granulocyte % (Auto) 4, Neutrophils (%) (Auto) 85H, Lymphocytes (%) (Auto) 8L, Monocytes (%) (Auto) 3, Eosinophils (%) (Auto) 0, Basophils (%) (Auto) 0, Neutrophils # (Auto) 5.2, Lymphocytes # (Auto) 0.5L, Monocytes # (Auto) 0.2, Eosinophils # (Auto) 0.0, Basophils # (Auto) 0.0, Immature Granulocyte # (Auto) 0.3H, Percent Immature Platelet Fraction 4.0 Microbiology 11/17/21 Urine Culture - Final, Complete NO GROWTH 11/17/21 MRSA Screen - Final, Complete 11/17/21 Blood Culture - Final, Complete Staphylococcus aureus Home Meds Active Reported Decadron (Dexamethasone) 4 Mg Tablet 4 Mg PO UD START 11-17-2021 TID FOR 4 DAYS, BID FOR 4 DAYS, DAILY FOR 4 DAYS, EVERY OTHER DAY FOR 7 DAYS Saline Nasal [place] (Sodium Chloride) 0.65 % [place] 1 [place] NS Q2H PRN Ondansetron HCl 8 Mg Tablet 8 Mg PO Q8H PRN Cough Drops (Menthol) 5.8 Mg Lozenge 5.8 Mg MM Q2H PRN Tessalon Perles (Benzonatate) 100 Mg Capsule 200 Mg PO TID Sodium Chloride 1 Gram Tab 1 Gm PO BID Bactrim Ds Tablet (Sulfamethoxazole/Trimethoprim) 800 Mg-160 Mg Tablet 1 Each PO BID START DATE 11-16-2021, STOP DATE 11-23-2021 Pantoprazole Sodium 40 Mg Tablet.dr 40 Mg PO DAILY Potassium Chloride 20 Meq Tablet.er 20 Meq PO DAILY Furosemide 40 Mg Tablet 40 Mg PO DAILY Tylenol (Acetaminophen) 325 Mg Tablet 650 Mg PO Q4M TAKES 2 (325MG) TABS Ventolin Hfa (Albuterol Sulfate) 1 Puff Puff 2 Puff INH Q6H PRN Senna (Sennosides) 8.6 Mg Tablet 8.6 Mg PO DAILY PRN Hydrocodone-Acetamin 5-325 mg (Hydrocodone/Acetaminophen) 1 Each Tablet 1 Ea PO Q6H PRN Cyclobenzaprine HCl 10 Mg Tablet 10 Mg PO Q12H PRN Guaifenesin 100 Mg/5 Ml Liquid 10 Ml PO Q4H PRN Fluticasone Propionate 16 Gm [place].susp 1 [place] NSEACH BID Lisinopril 10 Mg Tablet 10 Mg PO DAILY HOLD FOR SBP <100 OR PULSE <60- NOTIFY PCP IF HELD FOR 3 CONSECUTIVE DAYS Cetirizine HCl 10 Mg Tablet 10 Mg PO DAILY Iprat-Albut 0.5-3(2.5) mg/3 ml (Ipratropium/Albuterol Sulfate) 3 Ml Ampul.neb 3 Ml IH Q6H PRN Skilled NF Admit to: [facility] (SNF) I certify that SNF services are required to be given on an inpatient basis b ecause of the above named patient's need for penitentiary care on a continuing basis for the conditions(s) for which he/she was receiving inpatient hospital services prior to his/her transfer to the SNF. [facility] Facility Order: Nursing Services, Senior Sales Assistant-Evaluate & Treat, Physical Therapy-Evaluate & Treat Oxygen Delivery Method: Room Air Discharge Diet: Cardiac Diet Resuscitation Status: Do Not Resuscitate New & Resume Previous Orders Resume previous orders Alize Rangel Nov 23, 2021 12:52 Pneu Vac Indicated: Yes Discharge Physical Exam General: Alert, Oriented X3, No Acute Distress Lungs: Clear to Auscultation, Other (increased work of breathing with moderate exertion) Heart: Regular Rate, No Murmurs Abdomen: Normal Bowel Sounds, Soft, No Tenderness Extremities: Other (1+ pitting edema) Skin: No Rashes Neuro: Normal Speech, Cranial Nerves 3-12 NL Psych/Mental Status: Mental Status NL, Mood NL, Other (tearful this AM when talking about how scared he about his cancer) ALIZE RANGEL MD Nov 23, 2021 13:00
[2021-11-23] MEDS ORDERED: SULF1TAB38 PO (13:05)
[2021-11-23] MEDS ORDERED: PRD20T PO (13:05)
[2021-11-23 16:00] VITALS: BP 102/57
== END 2021-11-23 16:00 | DRG 871 ==
LOC: EDUNIT# 02:15 → ER 02:17 → ICU 04:00 → EDLOC 04:00 → 4TH 11-20 11:20
PROVIDERS: ADMIT Internal Medicine; ATTEND Family Medicine
DX: A41.02 Sepsis due to Methicillin resistant Staphylococcus aureus (principal); J15.212 Pneumonia due to Methicillin resistant Staphylococcus aureus; J96.21 Acute and chronic respiratory failure with hypoxia; C34.91 Malignant neoplasm of unspecified part of right bronchus or lung; C78.02 Secondary malignant neoplasm of left lung; C79.51 Secondary malignant neoplasm of bone; C79.31 Secondary malignant neoplasm of brain; Z66 Do not resuscitate; Z20.822 Contact with and (suspected) exposure to COVID-19; I87.1 Compression of vein; E87.1 Hypo-osmolality and hyponatremia; R65.20 Severe sepsis without septic shock; J43.9 Emphysema, unspecified; Z87.891 Personal history of nicotine dependence; Z88.0 Allergy status to penicillin; Z88.8 Allergy status to other drugs, medicaments and biological substances
CPT/HCPCS: 36415; 71045; 80048; 80053; 80061; 80202; 81000; 82805; 83605; 83735; 83874; 83880; 84100; 84145; 84484; 85007; 85025; 85027; 85379; 85610; 85730; 86141; 87040; 87077; 87081; 87088; 87186; 87636; 93005; 93041; 94640; 94760; 96361; 96365; 96367; 96372; 96375

== ENCOUNTER 2021-11-27 10:59 | Emergency (ER) | payer MEDICARE, MEDICAID ==
[~2021-11-27] VITALS: Ht 169 cm; Wt 99.0 kg
[~2021-11-27 10:59] MED LIST changes: +ACET325T38 PO; +DEXA4TAB66 PO; +ONDA-106 PO; +PANT40TA52 PO; +POTA-51 PO; +SODI30SP2 NS; +SULF-221 PO; +SULF1TAB38 PO; +[UNRECOGNIZED DRUG - CODE] MM
[2021-11-27] MEDS ORDERED: MAGIC MOUTHWASH, ADULT 155 ML BOTTLE PO STA (11:17)
--- NOTE | 2021-11-27 11:17 | ED General ---
General Chief Complaint: Fever-Adult/Adol Stated Complaint: INFECTION Source of Information: Patient Exam Limitations: No Limitations History of Present Illness Date Seen by Provider: Nov 27, 2021 Time Seen by Provider: 11:07 Initial Comments Patient is a 61-year-old male who presents to the emergency department from Dr. Acosta cancer office chief complaint fever and tachycardia. Patient was recently in the hospital from the third to the ninth with COPD exacerbation, and intubation and ultimately grew out positive blood cultures. Last culture results from the th also grew out coag negative staph. The patient was in for a follow-up with Dr. Alvarez today and found to have fever over 101 as well as tachycardia in the range of 1 20-1 40. Patient endorses slightly productive cough and pain in his mouth. He denies diarrhea, dysuria urgency or frequency. No rashes. He is noted to have a quite swollen right arm but says it has been that way for several weeks. He also has 2-3+ pitting edema in his bilateral lateral lower extremities. He denies pain in these areas. No sore throat, mildly runny nose. No earache. Does not feel short of breath. Is currently being treated for lung cancer with brain metastasis. All other review of systems reviewed and negative except as stated. Timing/Duration: 1 Week Severity: Moderate Associated Systoms: Fever/Chills Allergies and Home Medications Allergies Coded Allergies: Penicillins (Verified Allergy, Unknown, 07/26/21) melatonin (Verified Allergy, Unknown, 07/26/21) Patient Home Medication List Home Medication List Reviewed: Yes Acetaminophen (Tylenol) 325 Mg Tablet, 650 MG PO Q4M, (Reported) Entered as Reported by: JAZIEL HUNT on 11/17/21 1222 Albuterol Sulfate (Ventolin Hfa) 1 Puff Puff, 2 PUFF INH Q6H PRN for SHORTNESS OF BREATH, (Reported) Entered as Reported by: ALEXANDRA CAMPOS on 07/14/21 1147 Benzonatate (Tessalon Perles) 100 Mg Capsule, 200 MG PO TID, (Reported) Entered as Reported by: JAZIEL HUNT on 11/17/21 1230 Cetirizine HCl (Cetirizine HCl) 10 Mg Tablet, 10 MG PO DAILY, (Reported) Entered as Reported by: ALEXANDRA CAMPOS on 07/14/21 1147 Cyclobenzaprine HCl (Cyclobenzaprine HCl) 10 Mg Tablet, 10 MG PO Q12H PRN for SPASMS, (Reported) Entered as Reported by: ALEXANDRA CAMPOS on 07/14/21 1147 Fluticasone Propionate (Fluticasone Propionate) 16 Gm [place].susp, 1 SPRAY NSEACH BID, (Reported) Entered as Reported by: ALEXANDRA CAMPOS on 07/14/21 1147 Furosemide (Furosemide) 40 Mg Tablet, 40 MG PO DAILY, (Reported) Entered as Reported by: JAZIEL HUNT on 11/17/21 1225 Guaifenesin (Guaifenesin) 100 Mg/5 Ml Liquid, 10 ML PO Q4H PRN for COUGH, (Reported) Entered as Reported by: ALEXANDRA CAMPOS on 07/14/21 1147 Hydrocodone/Acetaminophen (Hydrocodone-Acetamin 5-325 mg) 1 Each Tablet, 1 EA PO Q6H PRN for PAIN-MODERATE (5-7), (Reported) Entered as Reported by: ALEXANDRA CAMPOS on 07/14/21 1147 Ipratropium/Albuterol Sulfate (Iprat-Albut 0.5-3(2.5) mg/3 ml) 3 Ml Ampul.neb, 3 ML IH Q6H PRN for SHORTNESS OF BREATH, (Reported) Entered as Reported by: ALEXANDRA CAMPOS on 07/14/21 1147 Lisinopril (Lisinopril) 10 Mg Tablet, 10 MG PO DAILY, (Reported) Entered as Reported by: ALEXANDRA CAMPOS on 07/14/21 1147 Menthol (Cough Drops) 5.8 Mg Lozenge, 5.8 MG MM Q2H PRN for COUGH, (Reported) Entered as Reported by: JAZIEL HUNT on 11/17/21 1232 Ondansetron HCl (Ondansetron HCl) 8 Mg Tablet, 8 MG PO Q8H PRN for NAUSEA/VOMITING, (Reported) Entered as Reported by: JAZIEL HUNT on 11/17/21 1233 Potassium Chloride (Potassium Chloride) 20 Meq Tablet.er, 20 MEQ PO DAILY, (Re ported) Entered as Reported by: JAZEIL HUNT on 11/17/21 1226 Prednisone (Prednisone) 20 Mg Tab, 40 MG PO DAILY@0700 Prescribed by: JAZ ZACARIAS on 11/23/21 1305 Sennosides (Senna) 8.6 Mg Tablet, 8.6 MG PO DAILY PRN for CONSTIPATION-5TH LINE, (Reported) Entered as Reported by: ALEXANDRA CAMPOS on 07/14/21 1147 Sodium Chloride (Sodium Chloride) 1 Gram Tab, 1 GM PO BID, (Reported) Entered as Reported by: JAZIEL HUNT on 11/17/21 1230 Sodium Chloride (Saline Nasal [place]) 0.65 % [place], 1 SPRAY NS Q2H PRN for SHAINA ESTION, (Reported) Entered as Reported by: JAZIEL HUNT on 11/17/21 1234 Sulfamethoxazole/Trimethoprim (Bactrim Ds Tablet) 1 Each Tablet, 1 EA PO BID WITH MEALS Prescribed by: JAZ ZACARIAS on 11/23/21 1305 Discontinued Medications Dexamethasone (Decadron) 4 Mg Tablet, 4 MG PO UD, (Reported) Entered as Reported by: JAZIEL HUNT on 11/17/21 1240 Pantoprazole Sodium (Pantoprazole Sodium) 40 Mg Tablet.dr, 40 MG PO DAILY, (Reported) Entered as Reported by: JAZIEL HUNT on 11/17/21 1226 Sulfamethoxazole/Trimethoprim (Bactrim Ds Tablet) 800 Mg-160 Mg Tablet, 1 EACH PO BID, (Reported) Entered as Reported by: JAZIEL HUNT on 11/17/21 1227 Review of Systems Review of Systems Constitutional: see HPI EENTM: other (runny nose and sore mouth) Respiratory: cough, phlegm, short of breath (chronic) Gastrointestinal: no symptoms reported Genitourinary: no symptoms reported Musculoskeletal: other (swollen legs; right arm swollen) Skin: no symptoms reported All Other Systems Reviewed Negative Unless Noted: Yes Past Fmateqx-Sccoyx-Wjeuqn Hx Immunizations Up To Date Tetanus Booster (TDap): Unknown First/Initial COVID19 Vaccinat: SEPTEMBER 2020 Second COVID19 Vaccination Alexey: OCTOBER 2020 Third COVID19 Vaccination Date: MARCH 2021 Past Medical History Surgery/Hospitalization HX: HTN, COPD, HERNIA REPAIR, RIGHT LUNG MASS, Surgeries: Yes Abdominal, Eye Surgery Respiratory: Yes (METASTATIC LUNG CANCER-BRAIN AND SPINAL METS; CHRONIC RESP. 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) HEENT: Yes (DECREASED HEARING RIGHT EAR) Cataract Loss of Vision: Denies Cancer: Yes Brain, Bone, Lung Did You Recieve Any Treatments: Yes What Type of Treatment Did You: Chemotherapy Psychosocial: Yes Sleep Difficulties Integumentary: No Blood Disorders: No Family Medical History Heart Disease, Cancer, Diabetes SOCIAL HISTORY: -SMOKES 1 06/18 PPD--CLAIMS HE JUST QUIT, PER PT 10/15/21 -ETOH--"30 PACK EVERY 3 DAYS"--CLAIMS HE JUST QUIT, PER PT 10/15/21 -DRUGS--DENIES USE PAST SURGICAL HISTORY: -CHEST TUBE FOR PNEUMOTHORAX 06/17/21 -CT GUIDED LUNG BIOPSY -PORT LEFT CHEST 07/2021 -BILATERAL INGUINAL HERNIA REPAIRS -BILATERAL CATARACT SURGERY Physical Exam Vital Signs Vital Signs - First Documented 11/27/21 11:07 Temp 38.7 Pulse 123 Resp 24 B/P (MAP) 124/81 (95) O2 Delivery Room Air Capillary Refill : Height, Weight, BMI Height: 6'0" Weight: 169lbs. oz. 76.244157lz; 34.93 BMI Method:Stated General Appearance: No Apparent Distress, WD/WN Eyes: Bilateral Eye Normal Inspection, Bilateral Eye PERRL, Bilateral Eye EOMI HEENT: PERRL/EOMI, TMs Normal, Pharynx Normal, Moist Mucous Membranes Neck: Normal Inspection Respiratory: No Respiratory Distress, Wheezing (slight exp wheeze right greater than left; some dyspnea with speech) Cardiovascular: Regular Rate, Rhythm, Tachycardia (115) Gastrointestinal: Normal Bowel Sounds, Non Tender, Soft Extremity: Normal Capillary Refill, Normal Range of Motion, Other (Edema noted to the right upper extremity with intact radial pulse; 2-3+ pitting edema bilateral lower extremities) Neurologic/Psychiatric: Alert, Oriented x3, No Motor/Sensory Deficits, Normal Mood/Affect, route delivery manager II-XII Norm as Tested Focused Exam Lactate Level 11/27/21 11:35: Lactic Acid Level 1.59 Lactic Acid Level Laboratory Tests Test 11/27/21 11:35 Lactic Acid Level 1.59 MMOL/L (0.50-2.00) Progress/Results/Core Measures Suspected Sepsis SIRS Temperature: Pulse: Respiratory Rate: Laboratory Tests 11/27/21 11:35: White Blood Count 6.2 Blood Pressure / Mean: 11/27/21 11:35: Lactic Acid Level 1.59 Laboratory Tests 11/27/21 11:35: Creatinine 0.79, INR Comment 0.9, Platelet Count 80L, Total Bilirubin 0.8 Results/Orders Lab Results Laboratory Tests Test 11/27/21 11:35 11/27/21 11:40 Range/Units White Blood Count 6.2 4.3-11.0 10^3/uL Red Blood Count 3.05 L 4.30-5.52 10^6/uL Hemoglobin 9.6 L 13.3-17.7 g/dL Hematocrit 28 L 40-54 % Mean Corpuscular Volume 93 80-99 fL Mean Corpuscular Hemoglobin 32 25-34 pg Mean Corpuscular Hemoglobin Concent 34 32-36 g/dL Red Cell Distribution Width 16.9 H 10.0-14.5 % Platelet Count 80 L 130-400 10^3/uL Mean Platelet Volume 10.8 9.0-12.2 fL Immature Granulocyte % (Auto) 5 % Neutrophils (%) (Auto) 87 H 42-75 % Lymphocytes (%) (Auto) 3 L 12-44 % Monocytes (%) (Auto) 5 0-12 % Eosinophils (%) (Auto) 0 0-10 % Basophils (%) (Auto) 0 0-10 % Neutrophils # (Auto) 5.4 1.8-7.8 10^3/uL Lymphocytes # (Auto) 0.2 L 1.0-4.0 10^3/uL Monocytes # (Auto) 0.3 0.0-1.0 10^3/uL Eosinophils # (Auto) 0.0 0.0-0.3 10^3/uL Basophils # (Auto) 0.0 0.0-0.1 10^3/uL Immature Granulocyte # (Auto) 0.3 H 0.0-0.1 10^3/uL Neutrophils % (Manual) 89 % Lymphocytes % (Manual) 3 % Monocytes % (Manual) 5 % Eosinophils % (Manual) 0 % Basophils % (Manual) 0 % Band Neutrophils 3 % Percent Immature Platelet Fraction 3.7 0.0-7.6 % Polychromasia SLIGHT Anisocytosis SLIGHT Prothrombin Time 12.4 12.2-14.7 SEC INR Comment 0.9 0.8-1.4 Activated Partial Thromboplast Time 25 24-35 SEC Sodium Level 127 L 135-145 MMOL/L Potassium Level 4.1 3.6-5.0 MMOL/L Chloride Level 92 L 98-107 MMOL/L Carbon Dioxide Level 26 21-32 MMOL/L Anion Gap 9 5-14 MMOL/L Blood Urea Nitrogen 12 7-18 MG/DL Creatinine 0.79 0.60-1.30 MG/DL Estimat Glomerular Filtration Rate 101 BUN/Creatinine Ratio 15 Glucose Level 94 70-105 MG/DL Lactic Acid Level 1.59 0.50-2.00 MMOL/L Calcium Level 8.6 8.5-10.1 MG/DL Corrected Calcium 9.3 8.5-10.1 MG/DL Total Bilirubin 0.8 0.1-1.0 MG/DL Aspartate Amino Transf (AST/SGOT) 27 5-34 U/L Alanine Aminotransferase (ALT/SGPT) 72 H 0-55 U/L Alkaline Phosphatase 83 40-136 U/L Total Protein 6.2 L 6.4-8.2 GM/DL Albumin 3.1 L 3.2-4.5 GM/DL Urine Color YELLOW Urine Clarity CLEAR Urine pH 7.5 5-9 Urine Specific [place] 1.010 L 1.016-1.022 Urine Protein NEGATIVE NEGATIVE Urine Glucose (UA) NEGATIVE NEGATIVE Urine Ketones NEGATIVE NEGATIVE Urine Nitrite NEGATIVE NEGATIVE Urine Bilirubin NEGATIVE NEGATIVE Urine Urobilinogen 0.2 < = 1.0 MG/DL Urine Leukocyte Esterase NEGATIVE NEGATIVE Urine RBC (Auto) NEGATIVE NEGATIVE Urine RBC NONE /HPF Urine WBC NONE /HPF Urine Squamous Epithelial Cells RARE /HPF Urine Crystals NONE /LPF Urine Bacteria NEGATIVE /HPF Urine Casts NONE /LPF Urine Mucus NEGATIVE /LPF Urine Culture Indicated CULTURE PENDING Influenza Type A (RT-PCR) Not Detected Not Detecte Influenza Type B (RT-PCR) Not Detected Not Detecte SARS-CoV-2 RNA (RT-PCR) Not Detected Not Detecte My Orders Orders - MIL SCHULTZ MD Cbc With Automated Diff (11/27/21 11:17) Comprehensive Metabolic Panel (11/27/21 11:17) Blood Culture (11/27/21 11:17) Sputum Culture (11/27/21 11:17) Urinalysis (11/27/21 11:17) Urine Culture (11/27/21 11:17) Protime With Inr (11/27/21 11:17) Partial Thromboplastin Time (11/27/21 11:17) Chest 1 View, Ap/Pa Only (11/27/21 11:17) Ed Iv/Invasive Line Start (11/27/21 11:17) Ed Iv/Invasive Line Start (11/27/21 11:17) Vital Signs Adult Sepsis Patie Q15M (11/27/21 11:17) O2 (11/27/21 11:17) Remove Rings In Anticipation O (11/27/21 11:17) Lactic Acid Analyzer (11/27/21 11:17) Covid 19 Inhouse Test (11/27/21 11:17) Influenza A And B By Pcr (11/27/21 11:17) Isolation Central Supply Req (11/27/21 11:17) Albuterol Pre-Mix Nebs (Rt) (Proventil (11/27/21 11:30) Svn Small Volume Nebulizer (11/27/21 11:17) General/Regular (11/27/21 Lunch) Acetaminophen Tablet (Tylenol Tablet) (11/27/21 11:30) Ns Iv 1000 Ml (Sodium Chloride 0.9%) (11/27/21 11:30) Nystatin Susp For Compounding (Mycostati (11/27/21 13:00) Manual Differential (11/27/21 11:35) Us Venous Upper Ext Rt (11/27/21 12:56) Vancomycin Injection (Vancomycin Injecti (11/27/21 14:00) Medications Given in ED Current Medications Medications Dose Ordered Sig/Milo Route Start Time Stop Time Status Last Admin Dose Admin Acetaminophen 1,000 mg ONCE ONCE PO 11/27/21 11:30 11/27/21 11:31 DC 11/27/21 11:47 1,000 MG Albuterol Sulfate 2.5 mg ONCE ONCE INH 11/27/21 11:30 11/27/21 11:31 DC 11/27/21 12:03 2.5 MG Nystatin/ Prednisolone/ Diphenhydramine HCl/Lidocaine HCl 5 ML ONCE ONCE PO 11/27/21 13:00 11/27/21 13:01 DC 11/27/21 12:04 5 LIQUID Vancomycin HCl 1000 mg/Sodium Chloride 250 ml @ 250 mls/hr ONCE ONCE IV 11/27/21 14:00 11/27/21 14:59 11/27/21 14:16 250 MLS/HR Vital Signs/I&O 11/27/21 11/27/21 11/27/21 11:07 11:47 12:04 Temp 38.7 38.7 38.7 Pulse 123 Resp 24 B/P (MAP) 124/81 (95) O2 Delivery Room Air Capillary Refill : Progress Note : Time: 14:23 Progress Note Care was discussed with Dr. Goncalves on for [facility]. Patient does not really meet inpatient requirements for IV antibiotics. He can receive these through the intermediate via his [id number]. His vital signs are stable. He is awake, alert and oriented. I did an ultrasound of his right upper extremity for DVT this was negative. He has eaten while in the department. I discussed the plan of care for management of vancomycin dosing with social studies teacher who have arranged to have his meds sent to [facility]. Return precautions discussed. Diagnostic Imaging Diagonstic Imaging: Xray Comments : 1960 PHYSICIAN: MIL SCHULTZ MD ADMIT DATE: 11/27/21/ER Draft Date of Exam:11/27/21 CHEST 1 VIEW, AP/PA ONLY CLINICAL INDICATION: Patient with fever and positive blood cultures. Patient has history of lung cancer with mets to brain. EXAM: Portable chest x-ray, upright view. COMPARISON: Chest x-ray dated 11/18/2021. FINDINGS: There is an amorphous airspace opacity in the right lung apex region which appears more ill-defined on this exam than on the prior study. There are curvilinear opacities extending to the region. There is elevation of the right hemidiaphragm again seen. There is improved aeration of the right lung base with residual airspace opacity obscuring the periphery of the right costophrenic angle region. A small right pleural effusion cannot be excluded. Again seen are chronic increased lung markings involving the left lung base with no definite interval lung infiltrate. There is no left pleural effusion or pneumothorax. The pulmonary vasculature and cardiac silhouette are within normal limits and stable. Again seen is a Port-A-Cath overlying the left chest in stable good position. IMPRESSION: 1: There is interval improved aeration of the right lung base with residual minimal atelectasis versus infiltrate in the periphery with slight blunting of the right costophrenic angle region. A small right pleural effusion cannot be completely excluded. 2: Opacity in the right lung apex appears more ill-defined on this exam than on the prior study. 3: The remainder of this exam shows no significant interval change compared to the prior study of comparison. Dictated on workstation # [id number] Dict: 11/27/21 1225 Trans: 11/27/21 1234 [id number] Interpreted by: BYRON GEORGE MD Electronically signed by: Departure Impression Primary Impression: Bacteremia Additional Impression: History of primary malignant neoplasm of lung Disposition: 01 HOME, SELF-CARE Condition: Stable Departure-Patient Inst. Decision time for Depature: 14:21 Referrals: [facility] (PCP) Primary Care Physician ANTOINETTE TOVAR (Family) Primary Care Physician Add. Discharge Instructions: Patient will receive vancomycin 1 g every 12 hours for total of 10 days. Vancomycin management to be done by PICC care and rehab physician. Tylenol 1 g every 6 hours as needed for fever over 100.4. Please return to the emergency department for any new, concerning or worsening symptoms. Scripts Vancomycin/0.9 % Sod Chloride (Vanco 1 Gram/250 ml-0.9% NaCl) 1 Gram/250 Ml Plast..bag 1 GM IV Q12HR for 10 Days, #19 GM Prov: MIL SCHULTZ MD 11/27/21 MIL SCHULTZ MD Nov 27, 2021 11:17
[2021-11-27] MEDS ORDERED: RT-ALBUTEROL SULF 2.5 MG/3 ML PRE-MIX VIAL INH ONE (11:30)
[2021-11-27] MEDS ORDERED: NS IV 1000 ML 1,000 ML IV SCH (11:30)
[2021-11-27] MEDS ORDERED: ACETAMINOPHEN 500 MG TAB (TYLENOL) PO ONE (11:30)
[2021-11-27 11:56] LABS: BILIRUBIN,URINE NEGATIVE (NEGATIVE); CLARITY,URINE CLEAR; COLOR,URINE YELLOW; GLUCOSE, URINE (UA) NEGATIVE (NEGATIVE); KETONES,URINE NEGATIVE (NEGATIVE); LEUKOCYTE ESTERASE ,URINE NEGATIVE (NEGATIVE); NITRITE,URINE NEGATIVE (NEGATIVE); PH,URINE 7.5 (5-9); PROTEIN,URINE NEGATIVE (NEGATIVE)
[2021-11-27 11:57] LABS: BASOPHILS % (AUTO) 0 % (0-10); EOSINOPHILS % (AUTO) 0 % (0-10)
[2021-11-27 11:59] LABS: HEMATOCRIT 28 % (40-54); HEMOGLOBIN 9.6 g/dL (13.3-17.7); LYMPHOCYTES # (AUTO) 0.2 10^3/uL (1.0-4.0); LYMPHOCYTES % (AUTO) 3 % (12-44); MEAN CORPUSCULAR HEMOGLOBIN 32 pg (25-34); MEAN CORPUSCULAR HGB CONC 34 g/dL (32-36); MEAN CORPUSCULAR VOLUME 93 fL (80-99); MEAN PLATELET VOLUME 10.8 fL (9.0-12.2); MONOCYTES # (AUTO) 0.3 10^3/uL (0.0-1.0); MONOCYTES % (AUTO) 5 % (0-12); NEUTROPHILS # (AUTO) 5.4 10^3/uL (1.8-7.8); NEUTROPHILS % (AUTO) 87 % (42-75); WHITE BLOOD COUNT 6.2 10^3/uL (4.3-11.0)
[2021-11-27 12:01] LABS: PLATELET COUNT 80 10^3/uL (130-400)
[2021-11-27 12:06] LABS: BACTERIA,URINE NEGATIVE /HPF; SQUAMOUS EPITHELIAL CELL,UR RARE /HPF
[2021-11-27 12:08] LABS: ALBUMIN 3.1 GM/DL (3.2-4.5); POTASSIUM 4.1 MMOL/L (3.6-5.0)
[2021-11-27 12:09] LABS: CALCIUM 8.6 MG/DL (8.5-10.1)
[2021-11-27 12:10] LABS: TOTAL PROTEIN 6.2 GM/DL (6.4-8.2)
[2021-11-27 12:12] LABS: BILIRUBIN,TOTAL 0.8 MG/DL (0.1-1.0); INR 0.9 (0.8-1.4); PROTHROMBIN TIME PATIENT 12.4 SEC (12.2-14.7)
[2021-11-27 12:14] LABS: CREATININE SERUM 0.79 MG/DL (0.60-1.30)
--- NOTE | 2021-11-27 12:34 | Diagnostic Imaging Report ---
CLINICAL INDICATION: Patient with fever and positive blood cultures. Patient has history of lung cancer with mets to brain. EXAM: Portable chest x-ray, upright view. COMPARISON: Chest x-ray dated 11/18/2021. FINDINGS: There is an amorphous airspace opacity in the right lung apex region which appears more ill-defined on this exam than on the prior study. There are curvilinear opacities extending to the region. There is elevation of the right hemidiaphragm again seen. There is improved aeration of the right lung base with residual airspace opacity obscuring the periphery of the right costophrenic angle region. A small right pleural effusion cannot be excluded. Again seen are chronic increased lung markings involving the left lung base with no definite interval lung infiltrate. There is no left pleural effusion or pneumothorax. The pulmonary vasculature and cardiac silhouette are within normal limits and stable. Again seen is a Port-A-Cath overlying the left chest in stable good position. IMPRESSION: 1: There is interval improved aeration of the right lung base with residual minimal atelectasis versus infiltrate in the periphery with slight blunting of the right costophrenic angle region. A small right pleural effusion cannot be completely excluded. 2: Opacity in the right lung apex appears more ill-defined on this exam than on the prior study. 3: The remainder of this exam shows no significant interval change compared to the prior study of comparison. Dictated by: Dictated on workstation # [id number]
[2021-11-27 12:52] LABS: BAND NEUTROPHILS 3 %; LYMPHOCYTES % (MANUAL) 3 %; NEUTROPHILS % (MANUAL) 89 %
[2021-11-27 12:53] LABS: ANISOCYTOSIS SLIGHT; BASOPHILS % (MANUAL) 0 %; EOSINOPHILS % (MANUAL) 0 %; MONOCYTES % (MANUAL) 5 %; POLYCHROMASIA SLIGHT
[2021-11-27] MEDS ORDERED: MAGIC MOUTHWASH (ADULT) PO ONE ×4 (13:00)
[2021-11-27] MEDS ORDERED: VANCOMYCIN INJECTION 1,000 MG in NS (IVPB) 250 ML IV ONE (14:00)
--- NOTE | 2021-11-27 14:04 | Diagnostic Imaging Report ---
INDICATION: Right upper extremity swelling and pain. FINDINGS: Visualized deep and superficial venous system is patent. There is no DVT. IMPRESSION: Negative right upper extremity venous Doppler. Dictated by: Dictated on workstation # [id number]
[2021-11-27] MEDS ORDERED: VANC1PLA9 IV (14:23)
[2021-11-27 15:32] VITALS: BP 106/66
== END 2021-11-27 15:32 | disposition home or self-care (01) ==
LOC: EDUNIT# 10:59 → ER 11:01
DX: R78.81 Bacteremia (principal); C34.90 Malignant neoplasm of unspecified part of unspecified bronchus or lung; C79.31 Secondary malignant neoplasm of brain; C79.51 Secondary malignant neoplasm of bone; Z87.891 Personal history of nicotine dependence; Z20.822 Contact with and (suspected) exposure to COVID-19
CPT/HCPCS: 36415; 71045; 80053; 81000; 83605; 85007; 85027; 85610; 85730; 87040; 87077; 87088; 87636

== ENCOUNTER 2021-12-13 11:56 | Inpatient (IN) | payer MEDICARE, MEDICAID ==
[~2021-12-13] VITALS: Ht 171 cm; Wt 84.6 kg
[~2021-12-13 11:56] MED LIST changes: +VANC1PLA9 IV
[2021-12-13] MEDS ORDERED: RT-ALBUTEROL HFA 8.5 GM INHALER IH STA (12:29)
[2021-12-13 12:36] LABS: BILIRUBIN,URINE NEGATIVE (NEGATIVE); CLARITY,URINE CLEAR; COLOR,URINE YELLOW; GLUCOSE, URINE (UA) NEGATIVE (NEGATIVE); KETONES,URINE NEGATIVE (NEGATIVE); LEUKOCYTE ESTERASE ,URINE NEGATIVE (NEGATIVE); NITRITE,URINE NEGATIVE (NEGATIVE); PH,URINE 5.5 (5-9); PROTEIN,URINE NEGATIVE (NEGATIVE)
[2021-12-13 12:45] LABS: BACTERIA,URINE NEGATIVE /HPF; SQUAMOUS EPITHELIAL CELL,UR RARE /HPF; WBC,URINE RARE /HPF
[2021-12-13 12:55] LABS: BASOPHILS % (AUTO) 1 % (0-10); EOSINOPHILS % (AUTO) 0 % (0-10); HEMATOCRIT 26 % (40-54); HEMOGLOBIN 8.5 g/dL (13.3-17.7); LYMPHOCYTES # (AUTO) 0.8 10^3/uL (1.0-4.0); LYMPHOCYTES % (AUTO) 12 % (12-44); MEAN CORPUSCULAR HEMOGLOBIN 30 pg (25-34); MEAN CORPUSCULAR HGB CONC 33 g/dL (32-36); MEAN CORPUSCULAR VOLUME 91 fL (80-99); MEAN PLATELET VOLUME 9.8 fL (9.0-12.2); MONOCYTES # (AUTO) 0.9 10^3/uL (0.0-1.0); MONOCYTES % (AUTO) 13 % (0-12); NEUTROPHILS # (AUTO) 4.5 10^3/uL (1.8-7.8); NEUTROPHILS % (AUTO) 65 % (42-75); PLATELET COUNT 309 10^3/uL (130-400); WHITE BLOOD COUNT 6.9 10^3/uL (4.3-11.0)
[2021-12-13 13:06] LABS: POTASSIUM 4.1 MMOL/L (3.6-5.0)
[2021-12-13 13:07] LABS: CALCIUM 8.7 MG/DL (8.5-10.1); PROTHROMBIN TIME PATIENT 13.5 SEC (12.2-14.7)
[2021-12-13 13:09] LABS: TOTAL PROTEIN 6.5 GM/DL (6.4-8.2)
[2021-12-13 13:11] LABS: BILIRUBIN,TOTAL 0.7 MG/DL (0.1-1.0)
[2021-12-13 13:13] LABS: CREATININE SERUM 0.77 MG/DL (0.60-1.30)
--- NOTE | 2021-12-13 13:24 | Diagnostic Imaging Report ---
EXAMINATION: Chest 1 view HISTORY: Cough. Fever. COMPARISON: 11/27/2021. FINDINGS: Increased opacities are seen in the right costophrenic angle. The remainder of the lungs is clear. No large pneumothorax. Stable cardiac silhouette. Stable left-sided port. No acute osseous abnormalities. IMPRESSION: 1. Increased opacities in the right costophrenic angle which may represent increasing pleural effusion and/or focal opacities. Recommend continued followup as indicated. Dictated by: Dictated on workstation # [id number]
[2021-12-13] MEDS ORDERED: RT-ALBUTEROL/IPRATROPIUM 3 ML (DUONEB) VIAL INH ONE (14:00)
[2021-12-13] MEDS ORDERED: methylPREDNISolone 125 MG (Solu-MEDROL) VIAL IVP ONE (14:00)
--- NOTE | 2021-12-13 14:51 | ED General ---
General Chief Complaint: Fever-Adult/Adol Stated Complaint: COUGH,WHEEZING, COPD Nursing Triage Note: pt is a ca pt of dr. drake rn called er saying pt had a fever and cough so was sent here. states having s/s for a couple days Source of Information: Patient, [facility] Records, Old Records (Patient is a limited historian), Other ([facility]) Exam Limitations: Other History of Present Illness Date Seen by Provider: Dec 13, 2021 Time Seen by Provider: 12:05 Initial Comments This 61-year-old gentleman presents to the emergency room with complaints of shortness of breath, cough, and fever. He does not know about an actual measured fever but reports there was can some concern of fever. I later found out from the [facility] that retirement had reported a temperature of 102.2 earlier in the day. He had recently been admitted to the hospital for severe sepsis and had a blood culture positive for MRSA. He finished vancomycin therapy last week. 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 He most recently finished radiation therapy for the brain metastasis. He previously completed chemotherapy. He is about to start immunotherapy. Patient is exhibiting significant increased work of breathing with accessory muscle use to exhale. His wheezing is very tight on auscultation. Oxygen saturation is in the 90s on 1 to 2 L by nasal cannula. He does not typically use oxygen at at the retirement. Patient has a DNR order. Dr. Romero and Mirian Vela and provide his primary care. Dr. Taveras is his oncologist. Temperature here is 100.2. Allergies and Home Medications Allergies Coded Allergies: Penicillins (Verified Allergy, Unknown, 07/26/21) melatonin (Verified Allergy, Unknown, 07/26/21) Patient Home Medication List Home Medication List Reviewed: Yes Acetaminophen (Tylenol) 325 Mg Tablet, 650 MG PO Q4 -6H PRN for PAIN-MILD (1-4) OR TEMPATURE, (Reported) Entered as Reported by: JAZIEL HUNT on 11/17/21 1222 Last Action: Held Albuterol Sulfate (Ventolin Hfa) 1 Puff Puff, 2 PUFF INH Q6H PRN for SHORTNESS OF BREATH, (Reported) Entered as Reported by: ALEXANDRA CAMPOS on 07/14/21 1147 Last Action: Held Benzonatate (Tessalon Perles) 100 Mg Capsule, 200 MG PO 0900,1300,1700, (Reported) Entered as Reported by: JAZIEL HUNT on 11/17/21 1230 Last Action: Continued Cefdinir (Cefdinir) 300 Mg Capsule, 300 MG PO BID Prescribed by: JESSICA GALVEZ on 12/15/21 1036 Cetirizine HCl (Cetirizine HCl) 10 Mg Tablet, 10 MG PO DAILY, (Reported) Entered as Reported by: ALEXANDRA CAMPOS on 07/14/211146 Last Action: Continued Cyclobenzaprine HCl (Cyclobenzaprine HCl) 10 Mg Tablet, 10 MG PO Q12H PRN for MUSCLE SPASMS, (Reported) Entered as Reported by: ALEXANDRA CAMPOS on 07/14/211146 Last Action: Continued Fluticasone Propionate (Fluticasone Propionate) 16 Gm [place].susp, 1 SPRAY NSEACH BID, (Reported) Entered as Reported by: ALEXANDRA CAMPOS on 07/14/211146 Last Action: Continued Furosemide (Furosemide) 40 Mg Tablet, 40 MG PO DAILY, (Reported) Entered as Reported by: JAZIEL HUNT on 11/17/21 1225 Last Action: Continued Guaifenesin (Guaifenesin) 100 Mg/5 Ml Liquid, 10 ML PO Q4H PRN for COUGH, (Reported) Entered as Reported by: ALEXANDRA CAMPOS on 07/14/211146 Last Action: Continued Hydrocodone/Acetaminophen (Hydrocodone-Acetamin 5-325 mg) 1 Each Tablet, 1 EA PO Q6H PRN for PAIN-MODERATE (5-7), (Reported) Entered as Reported by: ALEXANDRA CAMPOS on 07/14/211146 Last Action: Continued Ipratropium/Albuterol Sulfate (Iprat-Albut 0.5-3(2.5) mg/3 ml) 3 Ml Ampul.neb, 3 ML IH Q6H PRN for SHORTNESS OF BREATH, (Reported) Entered as Reported by: ALEXANDRA CAMPOS on 07/14/211146 Last Action: Continued Linezolid (Zyvox) 600 Mg Tablet, 600 MG PO BID Prescribed by: JESSICA GALVEZ on 12/15/21 1036 Lisinopril (Lisinopril) 10 Mg Tablet, 10 MG PO DAILY, (Reported) Entered as Reported by: ALEXANDRA CAMPOS on 07/14/21 1147 Last Action: Continued Menthol (Cough Drops) 5.8 Mg Lozenge, 5.8 MG MM Q2H PRN for COUGH, (Reported) Entered as Reported by: JAZIEL HUNT on 11/17/21 1232 Last Action: Converted Montelukast Sodium (Montelukast Sodium) 10 Mg Tablet, 10 MG PO HS Prescribed by: JESSICA GALVEZ on 12/15/21 1036 Ondansetron HCl (Ondansetron HCl) 8 Mg Tablet, 8 MG PO Q8H PRN for NAUSEA/VOMITING, (Reported) Entered as Reported by: JAZIEL HUNT on 11/17/21 1233 Last Action: Converted Pantoprazole Sodium (Pantoprazole Sodium) 40 Mg Tablet.dr, 40 MG PO DAILY, (Repo rted) Entered as Reported by: ALEXANDRA CAMPOS on 12/14/21 1116 Last Action: Continued Potassium Chloride (Potassium Chloride) 20 Meq Tablet.er, 20 MEQ PO DAILY, (Reported) Entered as Reported by: JAZIEL HUNT on 11/17/21 1226 Last Action: Converted Prednisone (Prednisone) 10 Mg Tab.ds.pk, 10 MG PO DAILY Prescribed by: JESSICA GALVEZ on 12/15/21 1036 Sennosides (Senna) 8.6 Mg Tablet, 8.6 MG PO DAILY PRN for CONSTIPATION-5TH LINE, (Reported) Entered as Reported by: ALEXANDRA CAMPOS on 07/14/21 1147 Last Action: Continued Sodium Chloride (Sodium Chloride) 1 Gram Tab, 1 GM PO 0900,1700, (Reported) Entered as Reported by: JAZIEL HUNT on 11/17/21 1230 Last Action: Held Sodium Chloride (Saline Nasal [place]) 0.65 % [place], 1 SPRAY NS Q2H PRN for CONGESTION, (Reported) Entered as Reported by: JAZIEL HUNT on 11/17/21 1234 Last Action: Continued Discontinued Medications Prednisone (Prednisone) 20 Mg Tab, 40 MG PO DAILY@0700 Discontinued Reason: No Longer Taking Prescribed by: JAZ ZACARIAS on 11/23/21 1305 Last Action: Discontinued Sulfamethoxazole/Trimethoprim (Bactrim Ds Tablet) 1 Each Tablet, 1 EA PO BID WITH MEALS Discontinued Reason: No Longer Taking Prescribed by: JAZ ZACARIAS on 11/23/21 1305 Last Action: Discontinued Vancomycin/0.9 % Sod Chloride (Vanco 1 Gram/250 ml-0.9% NaCl) 1 Gram/250 Ml Plast..bag, 1 GM IV Q12HR Discontinued Reason: No Longer Taking Prescribed by: MIL SCHULTZ on 11/27/21 1423 Last Action: Discontinued Review of Systems Review of Systems Constitutional: see HPI EENTM: no symptoms reported Respiratory: see HPI Cardiovascular: no symptoms reported Gastrointestinal: no symptoms reported Genitourinary: no symptoms reported Musculoskeletal: no symptoms reported Skin: no symptoms reported Psychiatric/Neurological: No Symptoms Reported Hematologic/Lymphatic: No Symptoms Reported Immunological/Allergic: no symptoms reported Past Izyofmd-Gclllh-Dpnsco Hx Patient Social History Tobacco Use?: Yes Tobacco type used: Cigarettes Smoking Status: Former Smoker Alcohol Use?: No Immunizations Up To Date Tetanus Booster (TDap): Unknown First/Initial COVID19 Vaccinat: SEPTEMBER 2020 Second COVID19 Vaccination Alexey: OCTOBER 2020 Third COVID19 Vaccination Date: MARCH 2021 Past Medical History Surgery/Hospitalization HX: HTN, COPD, HERNIA REPAIR, RIGHT LUNG MASS, Surgeries: Yes Abdominal, Eye Surgery Respiratory: Yes (METASTATIC LUNG CANCER-BRAIN AND SPINAL METS; CHRONIC RESP. 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) HEENT: Yes (DECREASED HEARING RIGHT EAR) Cataract Loss of Vision: Denies Cancer: Yes Brain, Bone, Lung Did You Recieve Any Treatments: Yes What Type of Treatment Did You: Chemotherapy Psychosocial: Yes Sleep Difficulties Integumentary: No Blood Disorders: No Family Medical History Heart Disease, Cancer, Diabetes SOCIAL HISTORY: -SMOKES 1 1/2 PPD--CLAIMS HE JUST QUIT, PER PT 10/15/21 -ETOH--"30 PACK EVERY 3 DAYS"--CLAIMS HE JUST QUIT, PER PT 10/15/21 -DRUGS--DENIES USE PAST SURGICAL HISTORY: -CHEST TUBE FOR PNEUMOTHORAX 06/17/21 -CT GUIDED LUNG BIOPSY -PORT LEFT CHEST 07/2021 -BILATERAL INGUINAL HERNIA REPAIRS -BILATERAL CATARACT SURGERY Physical Exam-Suspected Sepsis Physical Exam Vital Signs Vital Signs - First Documented 12/13/21 12:14 Temp 37.9 Pulse 120 Resp 22 B/P (MAP) 124/79 (94) Pulse Ox 98 O2 Delivery Nasal Cannula O2 Flow Rate 2.00 Capillary Refill : Less Than 3 Seconds Blood Pressure Mean: 94 Height, Weight, BMI Height: 6'0" Weight: 169lbs. oz. 76.832789er; 28.00 BMI Method:Stated General Appearance: No Apparent Distress, WD/WN HEENT: PERRL/EOMI, Normal ENT Inspection Neck: Normal Inspection Respiratory: No Respiratory Distress, Accessory Muscle Use (Increased effort with expiratory phase), Crackles (Faint basilar crackles), Wheezing Cardiovascular: No Murmur, Tachycardia (Regular) Gastrointestinal: Normal Bowel Sounds, Non Tender, Soft Extremity: Normal Inspection, Pedal Edema, Swelling Neurologic/Psychiatric: Alert, Oriented x3, No Motor/Sensory Deficits, Normal Mood/Affect, technical mgr II-XII Norm as Tested Skin: normal color, warm/dry Focused Exam Lactate Level Lactic Acid Level Progress/Results/Core Measures Suspected Sepsis SIRS Temperature: Pulse: 120 Respiratory Rate: 22 Blood Pressure 124 /79 Mean: 94 Results/Orders Lab Results My Orders Medications Given in ED Vital Signs/I&O Capillary Refill : Less Than 3 Seconds Blood Pressure Mean: 94 Progress Note : Time: 15:06 Progress Note Septic work-up was pursued. Blood cultures and lactic acid were obtained. After thorough review of his recent history and culture results, meropenem was ordered for initial therapy with intention to proceed with vancomycin during admission as well. Patient did have a history of MRSA positive blood culture on November 17. Patient received albuterol inhaler treatments which did not improve his breathing much. This was followed by a DuoNeb treatment which was more effective. He maintained his oxygen saturations well on nasal cannula 1 to 2 L/min. He was not notably in distress although he did have increased work of breathing and accessory muscle movement for expiration. Although labs were not convincing for sepsis, his recent history and reported history of fever of 102.2 at the retirement today raises concern for persistent or recurrent sepsis. Patient received Solu-Medrol 125 mg in addition to his breathing treatments. A liter of IV fluid is infusing along with the meropenem. Recent systolic blood pressures have been low normotensive in the 90s. Diagnostic Imaging Diagonstic Imaging: Xray Plain Films/CT/US/NM/MRI: chest Comments Chest x-ray viewed by me and report reviewed. See report below: NAME: GULSHAN LEACH [facility] REC#: [id number] PT STATUS: REG ER : 1960 PHYSICIAN: ROSIE KHAN MD ADMIT DATE: 12/13/21/ER Signed Date of Exam:12/13/21 CHEST 1 VIEW, AP/PA ONLY EXAMINATION: Chest 1 view HISTORY: Cough. Fever. COMPARISON: 11/27/2021. FINDINGS: Increased opacities are seen in the right costophrenic angle. The remainder of the lungs is clear. No large pneumothorax. Stable cardiac silhouette. Stable left-sided port. No acute osseous abnormalities. IMPRESSION: 1. Increased opacities in the right costophrenic angle which may represent increasing pleural effusion and/or focal opacities. Recommend continued followup as indicated. Dictated by: Dictated on workstation # [id number] Dict: 12/13/21 1322 Trans: 12/13/21 1324 [facility] [id number] Interpreted by: KYREE DIMAS DO Electronically signed by: KYREE DIMAS DO 12/13/21 1324 Departure Communication (Admissions) Time/Spoke to Admitting Phy: 15:05 Dr. Galvez Impression Primary Impression: COPD exacerbation Additional Impressions: Right lower lobe pulmonary infiltrate Metastatic primary lung cancer Qualified Codes: C34.90 - Malignant neoplasm of unspecified part of unspecified bronchus or lung Fever Qualified Codes: R50.9 - Fever, unspecified Disposition: ADMITTED INPATIENT Condition: Improved Admissions Decision to Admit Reason: Admit from ER (General) Decision to Admit/Date: Dec 13, 2021 Time/Decision to Admit Time: 15:05 Departure-Patient Inst. Referrals: NO,LOCAL PHYSICIAN (PCP) Primary Care Physician MIRIAN PATEL (Family) Primary Care Physician Scripts Prednisone (Prednisone) 10 Mg Tab.ds.pk 10 MG PO DAILY, #21 EA Take 6 tabs(60mg)daily,decrease by 1 tab(10MG)daily. Prov: JESSICA GALVEZ DO 12/15/21 Linezolid (Zyvox) 600 Mg Tablet 600 MG PO BID, #10 TAB Prov: JESSICA GALVEZ DO 12/15/21 Cefdinir (Cefdinir) 300 Mg Capsule 300 MG PO BID, #10 CAP Prov: JESSICA GALVEZ DO 12/15/21 Montelukast Sodium (Montelukast Sodium) 10 Mg Tablet 10 MG PO HS, #30 TAB Prov: JESSICA GALVEZ DO 12/15/21 Copy Copies To 1: ANTOINETTE ROMERO MD Copies To 2: JANIS TAVERAS JOSHUA T MD Dec 13, 2021 14:51
[2021-12-13] MEDS ORDERED: MEROPENEM 1,000 MG in NS (IVPB) 100 ML IV ONE (15:00)
[2021-12-13] MEDS ORDERED: NS IV 1000 ML 1,000 ML ONE (15:08)
[2021-12-13] MEDS ORDERED: NS IV 1000 ML 1,000 ML IV SCH (15:15)
[2021-12-13] MEDS ORDERED: polyethylene glycoL POWDER 17 GM (MIRALAX) PACK PO PRN (16:00)
[2021-12-13] MEDS ORDERED: ONDANSETRON 4 MG/2 ML (SDV) Z0FRAN IV PRN (16:00)
[2021-12-13] MEDS ORDERED: BISACODYL 10 MG SUPP (DULCOLAX) PR PRN (16:00)
[2021-12-13] MEDS ORDERED: VANCOMYCIN INJECTION 0.1 MG in NS (IVPB) 250 ML IV SCH (16:00)
[2021-12-13] MEDS ORDERED: diphenhydrAMINE 50 MG/ML INJ (BENADRYL) IVP PRN (16:00)
[2021-12-13] MEDS ORDERED: CALCIUM CARBONATE 500 MG (TUMS) TAB.CHEW PO PRN (16:00)
[2021-12-13] MEDS ORDERED: diphenhydrAMINE 25 MG TAB (BENADRYL) PO PRN (16:00)
[2021-12-13] MEDS ORDERED: MILK OF MAGNESIA 400 MG/5 ML 30 ML UDC PO PRN (16:00)
[2021-12-13] MEDS ORDERED: MEROPENEM 1,000 MG in NS (IVPB) 100 ML IV SCH (16:00)
[2021-12-13] MEDS ORDERED: morphine INJ 4 MG/ML 1 ML (VIAL/SYRINGE) IV PRN (16:00)
[2021-12-13] MEDS ORDERED: LACTULOSE SYRUP 10GM/15ML (ENULOSE) 30ML UDC PO PRN (16:00)
[2021-12-13] MEDS ORDERED: ANTACID SUSP 30 ML UDC (MYLANTA) PO PRN (16:00)
[2021-12-13] MEDS ORDERED: ONDANSETRON 4 MG (ZOFRAN) ORAL DISSOLVE TAB PO PRN (16:00)
[2021-12-13] MEDS ORDERED: VANCOMYCIN 1,750 MG/NS 500 ML IVPB IV NR ×2 (16:30)
[2021-12-13 16:46] VITALS: BP 110/71
--- NOTE | 2021-12-13 16:54 | History & Physical-Hospitalist ---
History of Present Illness HPI/Chief Complaint CC: AECOPD with fever HPI: This is a 61yoWM known to me from prior hospital stays who has a h/o lung cancer with mets on chemotherapy and radiation who presents to the ER with complaints of fever of 102. Antibiotics initiated empirically of broad spectrum due to recent completion of Vanc and Levaquin. Patient continues his chemotherapy with Dr Taveras. Source: patient, RN/MD, old records Exam Limitations: no limitations Date Seen 12/13/21 Time Seen by a Provider: 16:30 Attending Physician No,Local Physician PCP Admitting Physician: April Goncalves DO Attending Physician: April Goncalves DO Referring Physician Date of Admission Dec 13, 2021 at 15:06 Home Medications & Allergies Home Medications Reviewed patient Home Medication Reconciliation performed by pharmacy medication reconciliations highway traffic control technician and/or nursing. Patients Allergies have been reviewed. Allergies Allergies Coded Allergies Penicillins (Verified Allergy, Unknown, 07/26/21) melatonin (Verified Allergy, Unknown, 07/26/21) Past Zdhcmub-Woqgyz-Ipoooq Hx Patient Social History Marrital Status: single Employed/Student: unemployed Tobacco Use?: No Tobacco type used: Cigarettes Smoking Status: Former Smoker Use of E-Cig and/or Vaping dev: No Substance use?: No Alcohol Use?: No Additional alcohol type: former drinker Pt feels they are or have been: No Immunizations Up To Date Date of Influenza Vaccine: May 24, 2022 First/Initial COVID19 Vaccinat: SEPTEMBER 2020 Second COVID19 Vaccination Alexey: OCTOBER 2020 Tetanus Booster (TDap): Unknown Hepatitis A: No Hepatitis B: No Current Status Advance Directives: No Communicates: Verbally Primary Language: Tongan Preferred Spoken Language: Tongan Is interpretation needed?: No Implanted or Applied Medical D: Port-a-cath Past Medical History Surgeries: Abdominal, Eye Surgery COPD, Emphysema Currently Using CPAP: No Currently Using BIPAP: No Chronic Edema/Swelling, Hypertension Abdominal Hernia Cataract Loss of Vision: Denies Brain, Bone, Lung Did You Recieve Any Treatments: Yes What Type of Treatment Did You: Chemotherapy Sleep Difficulties Blood Disorders: No Family Medical History Heart Disease, Cancer, Diabetes SOCIAL HISTORY: -SMOKES 1 1/2 PPD--CLAIMS HE JUST QUIT, PER PT 10/15/21 -ETOH--"30 PACK EVERY 3 DAYS"--CLAIMS HE JUST QUIT, PER PT 10/15/21 -DRUGS--DENIES USE PAST SURGICAL HISTORY: -CHEST TUBE FOR PNEUMOTHORAX 06/17/21 -CT GUIDED LUNG BIOPSY -PORT LEFT CHEST 07/2021 -BILATERAL INGUINAL HERNIA REPAIRS -BILATERAL CATARACT SURGERY Review of Systems Constitutional: see HPI, malaise, weakness EENTM: no symptoms reported Respiratory: dyspnea on exertion, short of breath, wheezing Cardiovascular: no symptoms reported Gastrointestinal: no symptoms reported Genitourinary: no symptoms reported Musculoskeletal: no symptoms reported Skin: no symptoms reported Psychiatric/Neurological: No Symptoms Reported All Other Systems Reviewed Negative Unless Noted: Yes Physical Exam Physical Exam Vital Signs Vital Signs - First Documented 12/13/21 12:14 Temp 37.9 Pulse 120 Resp 22 B/P (MAP) 124/79 (94) Pulse Ox 98 O2 Delivery Nasal Cannula O2 Flow Rate 2.00 Capillary Refill : Less Than 3 Seconds Height, Weight, BMI Height: 6'0" Weight: 169lbs. oz. 76.703994sx; 28.04 BMI Method:Stated General Appearance: No Apparent Distress, Chronically ill Eyes: Right Eye Normal Inspection, Right Eye PERRL HEENT: PERRL/EOMI, Normal ENT Inspection, Pharynx Normal, Moist Mucous Mem branes Neck: Full Range of Motion, Normal Inspection, Non Tender Respiratory: Chest Non Tender, No Accessory Muscle Use, No Respiratory Distress, Decreased Breath Sounds, Wheezing Cardiovascular: Regular Rate, Rhythm, No Edema, No Gallop, No JVD, No Murmur, Normal Peripheral Pulses Gastrointestinal: Normal Bowel Sounds, No Organomegaly, No Pulsatile Mass, Non Tender, Soft Back: Normal Inspection, No CVA Tenderness, No Vertebral Tenderness Extremity: Normal Capillary Refill, Normal Inspection, Normal Range of Motion, Non Tender, No Calf Tenderness, No Pedal Edema Neurologic/Psychiatric: Alert, Oriented x3, No Motor/Sensory Deficits, Normal Mood/Affect Skin: Normal Color, Warm/Dry Lymphatic: No Adenopathy Results Results/Procedures Labs Laboratory Tests 12/13/21 12:40 Patient resulted labs reviewed. Assessment/Plan Admission Diagnosis Assessment: PNA RLL AECOPD Lung cancer with mets Hyponatremia HTN HLP Plan: IV abx IV steroids O2 Admission Status: Inpatient Order (span 2 midnights) Reason for Inpatient Admission: pna Diagnosis/Problems Diagnosis/Problems (1) Sepsis (2) Right lower lobe pulmonary infiltrate Status: Acute (3) Metastatic primary lung cancer Status: Acute Qualifiers: Laterality: unspecified laterality Qualified Codes: C34.90 - Malignant neoplasm of unspecified part of unspecified bronchus or lung (4) COPD exacerbation Status: Acute APRIL GONCALVES DO Dec 13, 2021 16:54
[2021-12-13] MEDS: methylPREDNISolone 40 MG/ML (Solu-MEDROL) VIAL IV SCH ×2 (17:29→23:15)
[2021-12-13] MEDS: ENOXAPARIN 40 MG/0.4 ML (LOVENOX) SYR SC SCH (17:29)
[2021-12-13 19:30] VITALS: BP 112/75
[2021-12-13] MEDS: NS IV 1000 ML 1,000 ML IV SCH ×2 (19:44→23:15)
[2021-12-13] MEDS: DOCUSATE SODIUM 100 MG (COLACE) CAP PO SCH (20:21)
[2021-12-13] MEDS: SENNOSIDES 8.6 MG (SENOKOT) TAB PO SCH (20:21)
[2021-12-13] MEDS: ACETAMINOPHEN 325 MG TABLET PO PRN (20:21)
[2021-12-13] MEDS: SODIUM CHLORIDE 1 GM TABLET PO SCH (20:27)
[2021-12-13] MEDS: MEROPENEM 500 MG/NS 100 ML IVPB IV SCH ×2 (23:15)
[2021-12-13 23:16] VITALS: BP 100/64
[2021-12-14 03:03] VITALS: BP 107/70
[2021-12-14] MEDS: MEROPENEM 500 MG/NS 100 ML IVPB IV SCH ×8 (05:37→22:16)
--- NOTE | 2021-12-14 05:53 | Progress Note - Hospitalist ---
Subjective HPI/CC On Admission Date Seen by Provider: Dec 14, 2021 Time Seen by Provider: 11:00 CC: AECOPD with fever HPI: This is a 61yoWM known to me from prior hospital stays who has a h/o lung cancer with mets on chemotherapy and radiation who presents to the ER with complaints of fever of 102. Antibiotics initiated empirically of broad spectrum due to recent completion of Vanc and Levaquin. Patient continues his c hemotherapy with Dr Taveras. Subjective/Events-last exam Pt is doing better Sodium is 131 Hemoglobin is 7.6 Meropenem and Vanc maintained IV steroids are helping Hep locking IV fluids and ambulating today Pt asked if he was getting chemotherapy today Review of Systems General: Fatigue, Malaise Pulmonary: Dyspnea Focused Exam Lactate Level 12/13/21 12:40: Lactic Acid Level 1.22 Objective Exam Vital Signs Vital Signs Date Time Temp Pulse Resp B/P (MAP) Pulse Ox O2 Delivery O2 Flow Rate FiO2 12/14/21 19:58 36.1 102 18 115/80 (92) 97 Room Air 12/13/21 12:15 2.00 2.00 Capillary Refill : Less Than 3 Seconds General Appearance: No Apparent Distress, WD/WN Respiratory: Lungs Clear, Normal Breath Sounds, Decreased Breath Sounds Cardiovascular: Regular Rate, Rhythm Neurologic/Psychiatric: Alert, Oriented x3, No Motor/Sensory Deficits, Normal Mood/Affect Results/Procedures Lab Laboratory Tests 12/14/21 04:55 Patient resulted labs reviewed. Assessment/Plan Assessment and Plan Assess & Plan/Chief Complaint Assessment: PNA RLL AECOPD Lung cancer with mets Hyponatremia HTN HLP Anemia Plan: IV abx IV steroids O2 HLIVF Diagnosis/Problems Diagnosis/Problems (1) Sepsis (2) Right lower lobe pulmonary infiltrate Status: Acute (3) Metastatic primary lung cancer Status: Acute Qualifiers: Laterality: unspecified laterality Qualified Codes: C34.90 - Malignant neoplasm of unspecified part of unspecified bronchus or lung (4) COPD exacerbation Status: Acute JESSICA GALVEZ DO Dec 14, 2021 05:53
[2021-12-14] MEDS: methylPREDNISolone 40 MG/ML (Solu-MEDROL) VIAL IV SCH ×4 (05:56→22:14)
[2021-12-14] MEDS: VANCOMYCIN 1500 MG/NS 500 ML IVPB IV SCH ×4 (05:56→16:40)
[2021-12-14 06:05] LABS: BASOPHILS % (AUTO) 0 % (0-10); EOSINOPHILS % (AUTO) 0 % (0-10); HEMATOCRIT 24 % (40-54); HEMOGLOBIN 7.6 g/dL (13.3-17.7); LYMPHOCYTES # (AUTO) 0.5 10^3/uL (1.0-4.0); LYMPHOCYTES % (AUTO) 15 % (12-44); MEAN CORPUSCULAR HEMOGLOBIN 29 pg (25-34); MEAN CORPUSCULAR HGB CONC 32 g/dL (32-36); MEAN CORPUSCULAR VOLUME 91 fL (80-99); MEAN PLATELET VOLUME 9.9 fL (9.0-12.2); MONOCYTES # (AUTO) 0.1 10^3/uL (0.0-1.0); MONOCYTES % (AUTO) 3 % (0-12); NEUTROPHILS # (AUTO) 2.3 10^3/uL (1.8-7.8); NEUTROPHILS % (AUTO) 75 % (42-75); PLATELET COUNT 241 10^3/uL (130-400); WHITE BLOOD COUNT 3.1 10^3/uL (4.3-11.0)
[2021-12-14 06:16] LABS: ALBUMIN 2.6 GM/DL (3.2-4.5); POTASSIUM 4.6 MMOL/L (3.6-5.0)
[2021-12-14 06:17] LABS: CALCIUM 8.6 MG/DL (8.5-10.1)
[2021-12-14 06:18] LABS: TOTAL PROTEIN 5.9 GM/DL (6.4-8.2)
[2021-12-14 06:20] LABS: BILIRUBIN,TOTAL 0.5 MG/DL (0.1-1.0)
[2021-12-14 06:22] LABS: CREATININE SERUM 0.91 MG/DL (0.60-1.30)
[2021-12-14 07:28] VITALS: BP 122/87
[2021-12-14] MEDS: DOCUSATE SODIUM 100 MG (COLACE) CAP PO SCH ×2 (08:32→19:29)
[2021-12-14] MEDS: SENNOSIDES 8.6 MG (SENOKOT) TAB PO SCH ×2 (08:32→19:30)
[2021-12-14] MEDS: SODIUM CHLORIDE 1 GM TABLET PO SCH ×2 (08:38→22:15)
[2021-12-14] MEDS: NS IV 1000 ML 1,000 ML IV SCH (08:56)
[2021-12-14] MEDS: ACETAMINOPHEN 325 MG TABLET PO PRN (11:06)
[2021-12-14] MEDS ORDERED: PANT40TA52 PO (11:16)
[2021-12-14 11:22] VITALS: BP 121/81
[2021-12-14 15:50] VITALS: BP 126/80
[2021-12-14] MEDS: ENOXAPARIN 40 MG/0.4 ML (LOVENOX) SYR SC SCH (16:40)
[2021-12-14 19:58] VITALS: BP 115/80
[2021-12-14] MEDS ORDERED: SALINE NASAL SPRAY (OCEAN) 45 ML BTL NS PRN (20:30)
[2021-12-14] MEDS ORDERED: HYDROcodone/APAP 5 MG/325 MG (LORTAB) TAB PO PRN (20:30)
[2021-12-14] MEDS ORDERED: guaiFENesin SYRUP 100 MG/5 ML 10 ML (ROBITUSSIN SF) PO PRN (20:30)
[2021-12-14] MEDS ORDERED: SENNOSIDES 8.6 MG (SENOKOT) TAB PO PRN (20:30)
[2021-12-14] MEDS ORDERED: RT-ALBUTEROL/IPRATROPIUM 3 ML (DUONEB) VIAL IH PRN (20:30)
[2021-12-14] MEDS ORDERED: FUROSEMIDE 40 MG/4 ML INJ (LASIX) IVP ONE (21:00)
[2021-12-14] MEDS ORDERED: MONTELUKAST 10 MG (SINGULAIR) TAB PO SCH (21:00)
[2021-12-14] MEDS ORDERED: ONDANSETRON 4 MG (ZOFRAN) ORAL DISSOLVE TAB PO PRN (22:00)
[2021-12-14] MEDS ORDERED: CYCLOBENZAPRINE 10 MG (FLEXERIL) TAB PO PRN (22:00)
[2021-12-14] MEDS: FLUTICASONE NASAL SPRAY (FLONASE) 16 GM BTL NS SCH (22:15)
[2021-12-14 23:30] VITALS: BP 166/95
[2021-12-15] MEDS ORDERED: TROUGH ORDER-PHARMACY XX NR (04:00)
[2021-12-15 04:28] LABS: BASOPHILS % (AUTO) 0 % (0-10); EOSINOPHILS % (AUTO) 0 % (0-10); HEMATOCRIT 25 % (40-54); HEMOGLOBIN 8.2 g/dL (13.3-17.7); LYMPHOCYTES # (AUTO) 0.4 10^3/uL (1.0-4.0); LYMPHOCYTES % (AUTO) 5 % (12-44); MEAN CORPUSCULAR HEMOGLOBIN 30 pg (25-34); MEAN CORPUSCULAR HGB CONC 33 g/dL (32-36); MEAN CORPUSCULAR VOLUME 92 fL (80-99); MEAN PLATELET VOLUME 9.7 fL (9.0-12.2); MONOCYTES # (AUTO) 0.3 10^3/uL (0.0-1.0); MONOCYTES % (AUTO) 3 % (0-12); NEUTROPHILS # (AUTO) 7.8 10^3/uL (1.8-7.8); NEUTROPHILS % (AUTO) 86 % (42-75); PLATELET COUNT 319 10^3/uL (130-400); WHITE BLOOD COUNT 9.1 10^3/uL (4.3-11.0)
[2021-12-15 04:35] LABS: ALBUMIN 2.8 GM/DL (3.2-4.5)
[2021-12-15 04:37] LABS: CALCIUM 8.9 MG/DL (8.5-10.1)
[2021-12-15 04:40] LABS: BILIRUBIN,TOTAL 0.5 MG/DL (0.1-1.0)
[2021-12-15 04:42] LABS: CREATININE SERUM 0.89 MG/DL (0.60-1.30)
[2021-12-15] MEDS: MEROPENEM 500 MG/NS 100 ML IVPB IV SCH ×4 (04:50→11:35)
[2021-12-15] MEDS: VANCOMYCIN 1500 MG/NS 500 ML IVPB IV SCH ×2 (04:57)
[2021-12-15 05:12] LABS: ANISOCYTOSIS SLIGHT; ATYPICAL LYMPHOCYTES 3 %; BAND NEUTROPHILS 3 %; HYPERSEGMENTED NEUT SLIGHT; LYMPHOCYTES % (MANUAL) 5 %; METAMYELOCYTES % 1 %; MICROCYTOSIS SLIGHT; MONOCYTES % (MANUAL) 3 %; NEUTROPHILS % (MANUAL) 85 %; PLATELET ESTIMATE GIANTS SEEN; POIKILOCYTOSIS SLIGHT; POLYCHROMASIA SLIGHT
--- NOTE | 2021-12-15 06:03 | Progress Note - Hospitalist ---
Subjective HPI/CC On Admission Date Seen by Provider: Dec 15, 2021 Time Seen by Provider: 10:30 CC: AECOPD with fever HPI: This is a 61yoWM known to me from prior hospital stays who has a h/o lung cancer with mets on chemotherapy and radiation who presents to the ER with complaints of fever of 102. Antibiotics initiated empirically of broad spectrum due to recent completion of Vanc and Levaquin. Patient continues his ch emotherapy with Dr Taveras. Focused Exam Lactate Level 12/13/21 12:40: Lactic Acid Level 1.22 Objective Exam Vital Signs Vital Signs Date Time Temp Pulse Resp B/P (MAP) Pulse Ox O2 Delivery O2 Flow Rate FiO2 12/15/21 08:31 36.9 108 17 135/78 (97) 96 Room Air 12/13/21 12:15 2.00 2.00 Capillary Refill : Less Than 3 Seconds Results/Procedures Lab Laboratory Tests 12/15/21 04:15 Patient resulted labs reviewed. Assessment/Plan Assessment and Plan Assess & Plan/Chief Complaint Assessment: PNA RLL AECOPD Lung cancer with mets Hyponatremia HTN HLP Anemia Plan: IV abx IV steroids O2 HLIVF Diagnosis/Problems Diagnosis/Problems (1) Sepsis (2) Right lower lobe pulmonary infiltrate Status: Acute (3) Metastatic primary lung cancer Status: Acute Qualifiers: Laterality: unspecified laterality Qualified Codes: C34.90 - Malignant neoplasm of unspecified part of unspecified bronchus or lung (4) COPD exacerbation Status: Acute JESSICA GALVEZ DO Dec 15, 2021 06:03
[2021-12-15] MEDS: methylPREDNISolone 40 MG/ML (Solu-MEDROL) VIAL IV SCH ×2 (06:06→11:36)
[2021-12-15] MEDS ORDERED: VANCOMYCIN 1250 MG/NS 250 ML IVPB IV SCH ×2 (08:00)
[2021-12-15] MEDS ORDERED: CEPACOL SORE THROAT-COUGH LOZENGE PO PRN (08:00)
[2021-12-15] MEDS: SENNOSIDES 8.6 MG (SENOKOT) TAB PO SCH (08:04)
[2021-12-15] MEDS: BENZONATATE 100 MG (TESSALON) CAPSULE PO SCH ×2 (08:04→13:32)
[2021-12-15] MEDS: DOCUSATE SODIUM 100 MG (COLACE) CAP PO SCH (08:04)
[2021-12-15] MEDS: FLUTICASONE NASAL SPRAY (FLONASE) 16 GM BTL NS SCH (08:06)
[2021-12-15] MEDS: SODIUM CHLORIDE 1 GM TABLET PO SCH (08:06)
[2021-12-15 08:31] VITALS: BP 135/78
[2021-12-15] MEDS ORDERED: PANTOPRAZOLE 40 MG (PROTONIX) TAB PO SCH (09:00)
[2021-12-15] MEDS ORDERED: FUROSEMIDE 40 MG (LASIX) TAB PO SCH (09:00)
[2021-12-15] MEDS ORDERED: KCL 20 MEQ TAB (K-DUR) PO SCH (09:00)
[2021-12-15] MEDS ORDERED: lisINopril 10 MG (PRINIVIL) TABLET PO SCH (09:00)
[2021-12-15] MEDS ORDERED: LORATADINE (CLARITIN) 10 MG TAB PO SCH (09:00)
[2021-12-15] MEDS ORDERED: CEFD300C3 PO (10:36)
[2021-12-15] MEDS ORDERED: MONT-40 PO (10:36)
[2021-12-15] MEDS ORDERED: LINE600T12 PO (10:36)
[2021-12-15] MEDS ORDERED: PRED10TA22 PO (10:36)
--- NOTE | 2021-12-15 10:38 | Discharge Inst-Skilled Nursing ---
Discharge Inst-Skilled NF Reconcile Patient Problems Problems Reviewed?: Yes Chief Complaint CC: AECOPD with fever HPI: This is a 61yoWM known to me from prior hospital stays who has a h/o lung cancer with mets on chemotherapy and radiation who presents to the ER with complaints of fever of 102. Antibiotics initiated empirically of broad spectrum due to recent completion of Vanc and Levaquin. Patient continues his chemotherapy with Dr Taveras. Patient Instructions Patient Problems: PNA AECOPD Goal: [place] Consult/Follow Up/Orders Follow Up Appt.: PCP 1 week Skilled NF Admit to: [facility] Certification ([facility]) I certify that SNF services are required to be given on an inpatient basis because of the above named patient's need for fpc care on a continuing basis for the conditions(s) for which he/she was receiving inpatient hospital services prior to his/her transfer to the [facility]. [facility] Facility Order: Nursing Services, Laundry Sorter-Evaluate & Treat, Physical Therapy-Evaluate & Treat Oxygen Delivery Method: Room Air Discharge Diet: No Restrictions New & Resume Previous Orders New Medications: Cefdinir (Cefdinir) 300 Mg Capsule 300 MG PO BID, #10 CAP Linezolid (Zyvox) 600 Mg Tablet 600 MG PO BID, #10 TAB Prednisone (Prednisone) 10 Mg Tab.ds.pk 10 MG PO DAILY, #21 EA Take 6 tabs(60mg)daily,decrease by 1 tab(10MG)daily. Montelukast Sodium (Montelukast Sodium) 10 Mg Tablet 10 MG PO HS, #30 TAB Continued Medications: Acetaminophen (Tylenol) 325 Mg Tablet 650 MG PO Q4 -6H PRN for PAIN-MILD (1-4) OR TEMPATURE, TAB TAKES 2 (325MG) TABS Albuterol Sulfate (Ventolin Hfa) 1 Puff Puff 2 PUFF INH Q6H PRN for SHORTNESS OF BREATH, EA Benzonatate (Tessalon Perles) 100 Mg Capsule 200 MG PO 0900,1300,1700, CAP Cetirizine HCl (Cetirizine HCl) 10 Mg Tablet 10 MG PO DAILY, TAB Cyclobenzaprine HCl (Cyclobenzaprine HCl) 10 Mg Tablet 10 MG PO Q12H PRN for MUSCLE SPASMS, TAB Fluticasone Propionate (Fluticasone Propionate) 16 Gm [place].susp 1 SPRAY NSEACH BID, EA Furosemide (Furosemide) 40 Mg Tablet 40 MG PO DAILY, TAB Guaifenesin (Guaifenesin) 100 Mg/5 Ml Liquid 10 ML PO Q4H PRN for COUGH, EA Hydrocodone/Acetaminophen (Hydrocodone-Acetamin 5-325 mg) 1 Each Tablet 1 EA PO Q6H PRN for PAIN-MODERATE (5-7), TAB Ipratropium/Albuterol Sulfate (Iprat-Albut 0.5-3(2.5) mg/3 ml) 3 Ml Ampul.neb 3 ML IH Q6H PRN for SHORTNESS OF BREATH, EACH Lisinopril (Lisinopril) 10 Mg Tablet 10 MG PO DAILY, TAB HOLD FOR SBP <100 OR PULSE <60- NOTIFY PCP IF HELD FOR 3 CONSECUTIVE DAYS Menthol (Cough Drops) 5.8 Mg Lozenge 5.8 MG MM Q2H PRN for COUGH, LOZENGE Ondansetron HCl (Ondansetron HCl) 8 Mg Tablet 8 MG PO Q8H PRN for NAUSEA/VOMITING, TAB Pantoprazole Sodium (Pantoprazole Sodium) 40 Mg Tablet.dr 40 MG PO DAILY, TAB Potassium Chloride (Potassium Chloride) 20 Meq Tablet.er 20 MEQ PO DAILY, TAB Sennosides (Senna) 8.6 Mg Tablet 8.6 MG PO DAILY PRN for CONSTIPATION-5TH LINE, TAB Sodium Chloride (Sodium Chloride) 1 Gram Tab 1 GM PO 0900,1700, TAB Sodium Chloride (Saline Nasal [place]) 0.65 % [place] 1 SPRAY NS Q2H PRN for CONGESTION, EA April Goncalves Dec 15, 2021 10:36 APRIL GONCALVES DO Dec 15, 2021 10:37
--- NOTE | 2021-12-15 10:38 | Discharge Summary ---
Discharge Summary Hospital Course Was the Problem List Reviewed?: Yes Problems/Dx: (1) Sepsis (2) Right lower lobe pulmonary infiltrate Status: Acute (3) Metastatic primary lung cancer Status: Acute Qualifiers: Qualified Codes: C34.90 - Malignant neoplasm of unspecified part of unspecified bronchus or lung (4) COPD exacerbation Status: Acute Hospital Course Date of Admission: Dec 13, 2021 at 15:06 Admission Diagnosis : Family Physician/Provider: Mirian Louis Date of Discharge: 12/15/21 Discharge Diagnosis: [ ] Hospital Course: Pt had an uneventful 3 day hospital course after he was admitted for pneumonia a nd fever. Given the fact that he is on chemotherapy for lung cancer with metastasis. IV steroids required. Wheezing resolved. Lasix restarted. He was discharged in improved condition to [facility]. Overall prognosis is poor and he remains DNR. Labs and Pending Lab Test: Laboratory Tests 12/15/21 04:15: White Blood Count 9.1, Red Blood Count 2.74L, Hemoglobin 8.2L, Hematocrit 25L, Mean Corpuscular Volume 92, Mean Corpuscular Hemoglobin 30, Mean Corpuscular Hemoglobin Concent 33, Red Cell Distribution Width 17.0H, Platelet Count 319, Mean Platelet Volume 9.7, Immature Granulocyte % (Auto) 6, Neutrophils (%) (Auto) 86H, Lymphocytes (%) (Auto) 5L, Monocytes (%) (Auto) 3, Eosinophils (%) (Auto) 0, Basophils (%) (Auto) 0, Neutrophils # (Auto) 7.8, Lymphocytes # (Auto) 0.4L, Monocytes # (Auto) 0.3, Eosinophils # (Auto) 0.0, Basophils # (Auto) 0.0, Immature Granulocyte # (Auto) 0.6H, Neutrophils % (Manual) 85, Lymphocytes % (Manual) 5, Monocytes % (Manual) 3, Metamyelocytes % 1, Band Neutrophils 3, Hypersegmented Neutrophils SLIGHT, Atypical Lymphocytes 3, Platelet Estimate GIANTS SEEN, Polychromasia SLIGHT, Poikilocytosis SLIGHT, Basophilic Stippling SLIGHT, Anisocytosis SLIGHT, Microcytosis SLIGHT, Sodium Level 132L, Potassium Level 4.0, Chloride Level 101, Carbon Dioxide Level 20L, Anion Gap 11, Blood Urea Nitrogen 22H, Creatinine 0.89, Estimat Glomerular Filtration Rate 97, BUN/Creatinine Ratio 25, Glucose Level 137H, Calcium Level 8.9, Corrected Calcium 9.9, Total Bilirubin 0.5, Aspartate Amino Transf (AST/SGOT) 18, Alanine Aminotransferase (ALT/SGPT) 33, Alkaline Phosphatase 85, Total Protein 6.0L, Albumin 2.8L, Vancomycin Level Trough 25.9*H Microbiology 12/13/21 Blood Culture - Preliminary, Resulted No growth 12/13/21 Urine Culture - Preliminary, Resulted Gram Pos Mixed Bacterial Earline Proteus species Home Meds Active Prednisone 10 Mg Tab.ds.pk 10 Mg PO DAILY Take 6 tabs(60mg)daily,decrease by 1 tab(10MG)daily. Zyvox (Linezolid) 600 Mg Tablet 600 Mg PO BID Cefdinir 300 Mg Capsule 300 Mg PO BID Montelukast Sodium 10 Mg Tablet 10 Mg PO HS Reported Pantoprazole Sodium 40 Mg Tablet.dr 40 Mg PO DAILY Saline Nasal [place] (Sodium Chloride) 0.65 % [place] 1 [place] NS Q2H PRN Ondansetron HCl 8 Mg Tablet 8 Mg PO Q8H PRN Cough Drops (Menthol) 5.8 Mg Lozenge 5.8 Mg MM Q2H PRN Tessalon Perles (Benzonatate) 100 Mg Capsule 200 Mg PO 0900,1300,1700 Sodium Chloride 1 Gram Tab 1 Gm PO 0900,1700 Potassium Chloride 20 Meq Tablet.er 20 Meq PO DAILY Furosemide 40 Mg Tablet 40 Mg PO DAILY Tylenol (Acetaminophen) 325 Mg Tablet 650 Mg PO Q4 -6H PRN TAKES 2 (325MG) TABS Ventolin Hfa (Albuterol Sulfate) 1 Puff Puff 2 Puff INH Q6H PRN Senna (Sennosides) 8.6 Mg Tablet 8.6 Mg PO DAILY PRN Hydrocodone-Acetamin 5-325 mg (Hydrocodone/Acetaminophen) 1 Each Tablet 1 Ea PO Q6H PRN Cyclobenzaprine HCl 10 Mg Tablet 10 Mg PO Q12H PRN Guaifenesin 100 Mg/5 Ml Liquid 10 Ml PO Q4H PRN Fluticasone Propionate 16 Gm [place].susp 1 [place] NSEACH BID Lisinopril 10 Mg Tablet 10 Mg PO DAILY HOLD FOR SBP <100 OR PULSE <60- NOTIFY PCP IF HELD FOR 3 CONSECUTIVE DAYS Cetirizine HCl 10 Mg Tablet 10 Mg PO DAILY Iprat-Albut 0.5-3(2.5) mg/3 ml (Ipratropium/Albuterol Sulfate) 3 Ml Ampul.neb 3 Ml IH Q6H PRN Assessment/Pt Instructions pcp 1 week Discharge Planning: <30 minutes discharge planning Discharge Instructions Discharge Diet: No Restrictions Discharge Physical Examination Vital Signs Vital Signs Date Time Temp Pulse Resp B/P (MAP) Pulse Ox O2 Delivery O2 Flow Rate FiO2 12/15/21 08:31 36.9 108 17 135/78 (97) 96 Room Air 12/13/21 12:15 2.00 2.00 General Appearance: No Apparent Distress, WD/WN, Chronically ill Respiratory: Lungs Clear, Normal Breath Sounds Allergies: Coded Allergies: Penicillins (Verified Allergy, Unknown, 07/26/21) melatonin (Verified Allergy, Unknown, 07/26/21) Discharge Summary Date of Admission Dec 13, 2021 at 15:06 Date of Discharge Discharge Date: Dec 15, 2021 Admission Diagnosis Assessment: PNA RLL AECOPD Lung cancer with mets Hyponatremia HTN HLP Plan: IV abx IV steroids O2 Discharge Diagnosis Assessment: PNA RLL AECOPD Lung cancer with mets Hyponatremia HTN HLP Anemia Plan: IV abx IV steroids O2 HLIVF (1) Sepsis (2) Right lower lobe pulmonary infiltrate Status: Acute (3) Metastatic primary lung cancer Status: Acute Qualifiers: Qualified Codes: C34.90 - Malignant neoplasm of unspecified part of unspecified bronchus or lung (4) COPD exacerbation Status: Acute JESSICA GALVEZ DO Dec 15, 2021 10:38
[2021-12-15 15:03] VITALS: BP 135/78
[2021-12-16] MEDS ORDERED: TROUGH ORDER-PHARMACY XX ONE (07:00)
== END 2021-12-15 15:05 | DRG 194 ==
LOC: EDUNIT# 11:56 → ER 11:58 → 4TH 15:06
PROVIDERS: ADMIT Internal Medicine; ATTEND Internal Medicine
DX: J18.9 Pneumonia, unspecified organism (principal); C34.90 Malignant neoplasm of unspecified part of unspecified bronchus or lung; C79.31 Secondary malignant neoplasm of brain; E87.1 Hypo-osmolality and hyponatremia; J43.9 Emphysema, unspecified; Z87.891 Personal history of nicotine dependence; I10 Essential (primary) hypertension; Z92.21 Personal history of antineoplastic chemotherapy; E78.5 Hyperlipidemia, unspecified; D64.9 Anemia, unspecified; Z66 Do not resuscitate; Z20.822 Contact with and (suspected) exposure to COVID-19
CPT/HCPCS: 36415; 71045; 80053; 80202; 81000; 83605; 83880; 84145; 85007; 85025; 85027; 85610; 85730; 86141; 87040; 87088; 87636

== ENCOUNTER 2021-12-21 08:58 | Outpatient (RCR) | payer MEDICARE, MEDICAID ==
[2022-01-05] MEDS ORDERED: APIX5TAB PO (11:26)
== END 2022-01-14 | disposition home or self-care (01) ==
LOC: ONC 08:58
PROVIDERS: ATTEND Radiology Radiation Oncology
DX: C34.90 Malignant neoplasm of unspecified part of unspecified bronchus or lung (principal); C79.31 Secondary malignant neoplasm of brain; I25.10 Atherosclerotic heart disease of native coronary artery without angina pectoris; I10 Essential (primary) hypertension; Z87.891 Personal history of nicotine dependence
CPT/HCPCS: 99213

== ENCOUNTER 2022-01-04 02:30 | Observation (INO) | payer MEDICARE, MEDICAID ==
[~2022-01-04] VITALS: Ht 172.7 cm; Wt 98.4 kg
--- NOTE | 2022-01-04 02:43 | ED General ---
General Stated Complaint: RT SIDE PAIN History of Present Illness Date Seen by Provider: Jan 04, 2022 Time Seen by Provider: 02:35 Initial Comments 61-year-old male with PMH of brain and lung cancer, brought in by EMS is sent [place] [facility] with complaints of chronic pain. Patient lives in a [place] [facility], and normally takes hydrocodone every 6 hours for pain. Tonight the patient started having pain again after 2 hours of taking hydrocodone so the [place] [facility] sent him to the ER to get pain medication. Pt states he has SOB, but it is not abnormal since his cancer diagnosis. Staff from facility called and gave a different story from the initial story, which is right sided chest discomfort and recent pneumonia and, and appears a little SOB. Denies fever, abdominal pain, dysuria, diarrhea,hematuria, known sick contacts of COVID. (JD GUTIÉRREZ MD) Allergies and Home Medications Allergies Coded Allergies: Penicillins (Verified Allergy, Unknown, 07/26/21) melatonin (Verified Allergy, Unknown, 07/26/21) Patient Home Medication List Home Medication List Reviewed: Yes (JD GUTIÉRREZ MD) Acetaminophen (Tylenol) 325 Mg Tablet, 650 MG PO Q4 -6H PRN for PAIN-MILD (1-4) OR TEMPATURE, (Reported) Entered as Reported by: JAZIEL HUNT on 11/17/21 1222 Albuterol Sulfate (Ventolin Hfa) 1 Puff Puff, 2 PUFF INH Q6H PRN for SHORTNESS OF BREATH, (Reported) Entered as Reported by: ALEXANDRA CAMPOS on 07/14/21 1147 Benzonatate (Tessalon Perles) 100 Mg Capsule, 200 MG PO 0900,1300,1700, (Reported) Entered as Reported by: JAZIEL HUNT on 11/17/21 1230 Cefdinir (Cefdinir) 300 Mg Capsule, 300 MG PO BID Prescribed by: JESSICA GALVEZ on 12/15/21 1036 Cetirizine HCl (Cetirizine HCl) 10 Mg Tablet, 10 MG PO DAILY, (Reported) Entered as Reported by: ALEXANDRA CAMPOS on 07/14/21 1147 Cyclobenzaprine HCl (Cyclobenzaprine HCl) 10 Mg Tablet, 10 MG PO Q12H PRN for MUSCLE SPASMS, (Reported) Entered as Reported by: ALEXANDRA CAMPOS on 07/14/21 1147 Fluticasone Propionate (Fluticasone Propionate) 16 Gm [place].susp, 1 SPRAY NSEACH BID, (Reported) Entered as Reported by: ALEXANDRA CAMPOS on 07/14/21 1147 Furosemide (Furosemide) 40 Mg Tablet, 40 MG PO DAILY, (Reported) Entered as Reported by: JAZIEL HUNT on 11/17/21 1225 Guaifenesin (Guaifenesin) 100 Mg/5 Ml Liquid, 10 ML PO Q4H PRN for COUGH, (Reported) Entered as Reported by: ALEXANDRA CAMPOS on 07/14/21 1147 Hydrocodone/Acetaminophen (Hydrocodone-Acetamin 5-325 mg) 1 Each Tablet, 1 EA PO Q6H PRN for PAIN-MODERATE (5-7), (Reported) Entered as Reported by: ALEXANDRA CAMPOS on 07/14/21 1147 Ipratropium/Albuterol Sulfate (Iprat-Albut 0.5-3(2.5) mg/3 ml) 3 Ml Ampul.neb, 3 ML IH Q6H PRN for SHORTNESS OF BREATH, (Reported) Entered as Reported by: ALEXANDRA CAMPOS on 07/14/21 1147 Linezolid (Zyvox) 600 Mg Tablet, 600 MG PO BID Prescribed by: JESSICA GALVEZ on 12/15/21 1036 Lisinopril (Lisinopril) 10 Mg Tablet, 10 MG PO DAILY, (Reported) Entered as Reported by: ALEXANDRA CAMPOS on 07/14/21 1147 Menthol (Cough Drops) 5.8 Mg Lozenge, 5.8 MG MM Q2H PRN for COUGH, (Reported) Entered as Reported by: JAZIEL HUNT on 11/17/21 1232 Montelukast Sodium (Montelukast Sodium) 10 Mg Tablet, 10 MG PO HS Prescribed by: JESSICA GALVEZ on 12/15/21 1036 Ondansetron HCl (Ondansetron HCl) 8 Mg Tablet, 8 MG PO Q8H PRN for NAUSEA/VOMITING, (Reported) Entered as Reported by: JAZIEL HUNT on 11/17/21 1233 Pantoprazole Sodium (Pantoprazole Sodium) 40 Mg Tablet.dr, 40 MG PO DAILY, (Reported) Entered as Reported by: ALEXANDRA CAMPOS on 12/14/21 1116 Potassium Chloride (Potassium Chloride) 20 Meq Tablet.er, 20 MEQ PO DAILY, (Reported) Entered as Reported by: JAZIEL HUNT on 11/17/21 1226 Prednisone (Prednisone) 10 Mg Tab.ds.pk, 10 MG PO DAILY Prescribed by: JESSICA GALVEZ on 12/15/21 1036 Sennosides (Senna) 8.6 Mg Tablet, 8.6 MG PO DAILY PRN for CONSTIPATION-5TH LINE, (Reported) Entered as Reported by: ALEXANDRA CAMPOS on 07/14/21 1147 Sodium Chloride (Sodium Chloride) 1 Gram Tab, 1 GM PO 0900,1700, (Reported) Entered as Reported by: JAZIEL HUNT on 11/17/21 1230 Sodium Chloride (Saline Nasal [place]) 0.65 % [place], 1 SPRAY NS Q2H PRN for CONGESTION, (Reported) Entered as Reported by: JAZIEL HUNT on 11/17/21 1234 Review of Systems Review of Systems Constitutional: other (generalized pain) EENTM: no symptoms reported Respiratory: no symptoms reported Cardiovascular: no symptoms reported Gastrointestinal: no symptoms reported Genitourinary: no symptoms reported Musculoskeletal: no symptoms reported Skin: no symptoms reported Psychiatric/Neurological: No Symptoms Reported Hematologic/Lymphatic: No Symptoms Reported Immunological/Allergic: no symptoms reported (JD GUTIÉRREZ MD) Past Efwahhg-Mqvliq-Gckyif Hx Immunizations Up To Date Tetanus Booster (TDap): Unknown First/Initial COVID19 Vaccinat: SEPTEMBER 2020 Second COVID19 Vaccination Alexey: OCTOBER 2020 Third COVID19 Vaccination Date: MARCH 2021 (JD GUTIÉRREZ MD) Past Medical History Surgery/Hospitalization HX: HTN, COPD, HERNIA REPAIR, RIGHT LUNG MASS,DIFFICULTY WALKING Surgeries: Yes Abdominal, Eye Surgery Respiratory: Yes (METASTATIC LUNG CANCER-BRAIN AND SPINAL METS; CHRONIC RESP. 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) HEENT: Yes (DECREASED HEARING RIGHT EAR) Cataract Loss of Vision: Denies Cancer: Yes Brain, Bone, Lung Did You Recieve Any Treatments: Yes What Type of Treatment Did You: Chemotherapy Psychosocial: Yes Sleep Difficulties Integumentary: No Blood Disorders: No (JD GUTIÉRREZ MD) Family Medical History Heart Disease, Cancer, Diabetes SOCIAL HISTORY: -SMOKES 1 1/2 PPD--CLAIMS HE JUST QUIT, PER PT 10/15/21 -ETOH--"30 PACK EVERY 3 DAYS"--CLAIMS HE JUST QUIT, PER PT 10/15/21 -DRUGS--DENIES USE PAST SURGICAL HISTORY: -CHEST TUBE FOR PNEUMOTHORAX 06/17/21 -CT GUIDED LUNG BIOPSY -PORT LEFT CHEST 07/2021 -BILATERAL INGUINAL HERNIA REPAIRS -BILATERAL CATARACT SURGERY (JD GUTIÉRREZ MD) Physical Exam Vital Signs Vital Signs - First Documented 01/04/22 02:45 Temp 36.8 Pulse 112 Resp 24 B/P (MAP) 119/92 (101) Pulse Ox 95 O2 Delivery Room Air (BHAVYA ALEMAN MD) Vital Signs Capillary Refill : (JD GUTIÉRREZ MD) Height, Weight, BMI Height: 6'0" Weight: 169lbs. oz. 76.675397rt; 28.04 BMI Method:Stated General Appearance: No Apparent Distress, WD/WN HEENT: PERRL/EOMI Neck: Full Range of Motion, Normal Inspection, Non Tender Respiratory: Chest Non Tender, Lungs Clear, Normal Breath Sounds, No Accessory Muscle Use, No Respiratory Distress, Rhonci (mild) Cardiovascular: Regular Rate, Rhythm, No Gallop Gastrointestinal: Normal Bowel Sounds, No Organomegaly, No Pulsatile Mass, Non Tender, Soft Back: No CVA Tenderness Neurologic/Psychiatric: Alert, Oriented x3 Skin: Normal Color (JD GUTIÉRREZ MD) Focused Exam Lactate Level 01/04/22 03:29: Lactic Acid Level 1.45 01/04/22 06:23: (BHAVYA ALEMAN MD) Lactic Acid Level Laboratory Tests Test 01/04/22 03:29 01/04/22 06:23 Lactic Acid Level 1.45 MMOL/L (0.50-2.00) (BHAVYA ALEMAN MD) Progress/Results/Core Measures Suspected Sepsis SIRS Temperature: Pulse: Respiratory Rate: Laboratory Tests 01/04/22 03:29: White Blood Count 6.7 Blood Pressure / Mean: 01/04/22 03:29: Lactic Acid Level 1.45 Laboratory Tests 01/04/22 03:29: Creatinine 1.16, INR Comment 0.9, Platelet Count 352, Total Bilirubin 0.7 (JD GUTIÉRREZ MD) Results/Orders Lab Results Laboratory Tests Test 01/04/22 03:20 01/04/22 03:29 01/04/22 03:47 01/04/22 06:23 Range/Units Urine Color YELLOW Urine Clarity CLEAR Urine pH 6.0 5-9 Urine Specific [place] 1.025 H 1.016-1.022 Urine Protein 2+ H NEGATIVE Urine Glucose (UA) NEGATIVE NEGATIVE Urine Ketones NEGATIVE NEGATIVE Urine Nitrite NEGATIVE NEGATIVE Urine Bilirubin NEGATIVE NEGATIVE Urine Urobilinogen 1.0 < = 1.0 MG/DL Urine Leukocyte Esterase NEGATIVE NEGATIVE Urine RBC (Auto) TRACE-I H NEGATIVE Urine RBC RARE /HPF Urine WBC NONE /HPF Urine Squamous Epithelial Cells 2-5 /HPF Urine Crystals NONE /LPF Urine Bacteria NEGATIVE /HPF Urine Casts PRESENT /LPF Urine Hyaline Casts 5-10 H /LPF Urine Mucus MODERATE H /LPF Urine Culture Indicated NO White Blood Count 6.7 4.3-11.0 10^3/uL Red Blood Count 3.05 L 4.30-5.52 10^6/uL Hemoglobin 8.6 L 13.3-17.7 g/dL Hematocrit 27 L 40-54 % Mean Corpuscular Volume 88 80-99 fL Mean Corpuscular Hemoglobin 28 25-34 pg Mean Corpuscular Hemoglobin Concent 32 32-36 g/dL Red Cell Distribution Width 18.2 H 10.0-14.5 % Platelet Count 352 130-400 10^3/uL Mean Platelet Volume 9.6 9.0-12.2 fL Immature Granulocyte % (Auto) 2 % Neutrophils (%) (Auto) 68 42-75 % Lymphocytes (%) (Auto) 11 L 12-44 % Monocytes (%) (Auto) 15 H 0-12 % Eosinophils (%) (Auto) 3 0-10 % Basophils (%) (Auto) 1 0-10 % Neutrophils # (Auto) 4.5 1.8-7.8 10^3/uL Lymphocytes # (Auto) 0.8 L 1.0-4.0 10^3/uL Monocytes # (Auto) 1.0 0.0-1.0 10^3/uL Eosinophils # (Auto) 0.2 0.0-0.3 10^3/uL Basophils # (Auto) 0.1 0.0-0.1 10^3/uL Immature Granulocyte # (Auto) 0.2 H 0.0-0.1 10^3/uL Prothrombin Time 12.9 12.2-14.7 SEC INR Comment 0.9 0.8-1.4 Activated Partial Thromboplast Time 36 H 24-35 SEC D-Dimer 3.24 H 0.00-0.49 UG/ML Sodium Level 129 L 135-145 MMOL/L Potassium Level 4.9 3.6-5.0 MMOL/L Chloride Level 98 98-107 MMOL/L Carbon Dioxide Level 20 L 21-32 MMOL/L Anion Gap 11 5-14 MMOL/L Blood Urea Nitrogen 24 H 7-18 MG/DL Creatinine 1.16 0.60-1.30 MG/DL Estimat Glomerular Filtration Rate 72 BUN/Creatinine Ratio 21 Glucose Level 100 70-105 MG/DL Lactic Acid Level 1.45 0.50-2.00 MMOL/L Calcium Level 9.4 8.5-10.1 MG/DL Corrected Calcium 10.1 8.5-10.1 MG/DL Total Bilirubin 0.7 0.1-1.0 MG/DL Aspartate Amino Transf (AST/SGOT) 32 5-34 U/L Alanine Aminotransferase (ALT/SGPT) 23 0-55 U/L Alkaline Phosphatase 137 H 40-136 U/L Troponin I 0.039 H <0.028 NG/ML B-Type Natriuretic Peptide 42.6 <100.0 PG/ML Total Protein 6.9 6.4-8.2 GM/DL Albumin 3.1 L 3.2-4.5 GM/DL Procalcitonin 0.90 H <0.10 NG/ML Influenza Type A (RT-PCR) Not Detected Not Detecte Influenza Type B (RT-PCR) Not Detected Not Detecte SARS-CoV-2 RNA (RT-PCR) Not Detected Not Detecte (BHAVYA ALEMAN MD) Medications Given in ED Current Medications Medications Dose Ordered Sig/Milo Route Start Time Stop Time Status Last Admin Dose Admin Aspirin 324 mg ONCE ONCE PO 01/04/22 05:45 01/04/22 05:46 DC 01/04/22 05:47 324 MG Iohexol 100 ml ONCE ONCE IV 01/04/22 05:00 01/04/22 05:01 DC 01/04/22 04:57 85 ML Sodium Chloride 10 ml NEEDED PRN IV 01/04/22 05:00 01/04/22 04:57 10 ML Sodium Chloride 100 ml ONCE ONCE IV 01/04/22 05:00 01/04/22 05:01 DC 01/04/22 04:57 80 ML (BHAVYA ALEMAN MD) Vital Signs/I&O 01/04/22 02:45 Temp 36.8 Pulse 112 Resp 24 B/P (MAP) 119/92 (101) Pulse Ox 95 O2 Delivery Room Air (BHAVYA ALEMAN MD) Vital Signs/I&O Capillary Refill : (JD GUTIÉRREZ MD) Progress Note : Progress Note 1. CHEST PAIN: - Aspirin 324mg given - Dilaudid 0.5mg im for pain - Troponin: 0.039, will recheck second troponin. Troponin may also be elevated due to demand ischemia - EKG - Will plan to admit pt once labs and imaging are back - Sign out to Dr Aleman for follow up of labs and imaging 2. ELEVATED D-DIMER: - CTA CHEST: - D-dimer is 3.24 - Pt has a high probability for PE 3. HYPONATREMIA: - s. Na is 129 4. ANEMIA OF CHRONIC DISEASE: - Hb is 8.6 and will need to be trended - Procalcitonin is 0.90 (JD GUTIÉRREZ MD) ECG Initial ECG Impression Date: Jan 04, 2022 Initial ECG Impression Time: 05:51 Initial ECG Rate: 127 Initial ECG Rhythm: S.Tach Comment narrow QRS, normal axis, no significant ST or T wave changes (BHAVYA ALEMAN MD) Departure Impression Primary Impression: Elevated d-dimer Additional Impressions: Hyponatremia Chest pain Qualified Codes: R07.9 - Chest pain, unspecified Elevated troponin SVC obstruction Disposition: 30 STILL A PATIENT Condition: Improved Admissions Decision to Admit Reason: Admit from ER (General) (JD GUTIÉRREZ MD) Departure-Patient Inst. Referrals: NO,LOCAL PHYSICIAN (PCP) Primary Care Physician NIKHIL PATEL (Family) Primary Care Physician Patient Instructions: CHRONIC PAIN, Urinary Tract Infection, Adult (DC) JD GUTIÉRREZ MD Jan 04, 2022 02:43 BHAVYA ALEMAN MD Jan 04, 2022 06:17
[2022-01-04] MEDS ORDERED: HYDROmorphone 2 MG/ML VIAL (DILAUDID) IM STA (02:48)
[2022-01-04 03:26] LABS: BILIRUBIN,URINE NEGATIVE (NEGATIVE); CLARITY,URINE CLEAR; COLOR,URINE YELLOW; GLUCOSE, URINE (UA) NEGATIVE (NEGATIVE); KETONES,URINE NEGATIVE (NEGATIVE); LEUKOCYTE ESTERASE ,URINE NEGATIVE (NEGATIVE); NITRITE,URINE NEGATIVE (NEGATIVE); PROTEIN,URINE 2+ (NEGATIVE)
[2022-01-04 03:33] LABS: BACTERIA,URINE NEGATIVE /HPF; RBC,URINE RARE /HPF
[2022-01-04 03:39] LABS: BASOPHILS # (AUTO) 0.1 10^3/uL (0.0-0.1); BASOPHILS % (AUTO) 1 % (0-10); EOSINOPHILS # (AUTO) 0.2 10^3/uL (0.0-0.3); EOSINOPHILS % (AUTO) 3 % (0-10); HEMATOCRIT 27 % (40-54); HEMOGLOBIN 8.6 g/dL (13.3-17.7); LYMPHOCYTES # (AUTO) 0.8 10^3/uL (1.0-4.0); LYMPHOCYTES % (AUTO) 11 % (12-44); MEAN CORPUSCULAR HEMOGLOBIN 28 pg (25-34); MEAN CORPUSCULAR HGB CONC 32 g/dL (32-36); MEAN CORPUSCULAR VOLUME 88 fL (80-99); MEAN PLATELET VOLUME 9.6 fL (9.0-12.2); MONOCYTES % (AUTO) 15 % (0-12); NEUTROPHILS # (AUTO) 4.5 10^3/uL (1.8-7.8); NEUTROPHILS % (AUTO) 68 % (42-75); PLATELET COUNT 352 10^3/uL (130-400); WHITE BLOOD COUNT 6.7 10^3/uL (4.3-11.0)
[2022-01-04 03:48] LABS: ALBUMIN 3.1 GM/DL (3.2-4.5); POTASSIUM 4.9 MMOL/L (3.6-5.0)
[2022-01-04 03:50] LABS: CALCIUM 9.4 MG/DL (8.5-10.1)
[2022-01-04 03:51] LABS: TOTAL PROTEIN 6.9 GM/DL (6.4-8.2)
[2022-01-04 03:53] LABS: BILIRUBIN,TOTAL 0.7 MG/DL (0.1-1.0)
[2022-01-04 03:54] LABS: CREATININE SERUM 1.16 MG/DL (0.60-1.30)
[2022-01-04 04:01] LABS: FIBRIN DEGRADATION PRODUCTS 3.24 UG/ML (0.00-0.49); INR 0.9 (0.8-1.4); PROTHROMBIN TIME PATIENT 12.9 SEC (12.2-14.7)
[2022-01-04] MEDS ORDERED: IOHEXOL 350 MG/ML 100 ML (OMNIPAQUE 350) VIAL IV ONE (05:00)
[2022-01-04] MEDS ORDERED: NS 100 ML (IVPB) BAG IV ONE (05:00)
[2022-01-04] MEDS ORDERED: CATHETER FLUSH 10 ML SYR IV PRN ×2 (05:00→08:30)
[2022-01-04] MEDS ORDERED: ASPIRIN 81 MG CHEW (CHILDREN'S ASA) PO ONE (05:45)
[2022-01-04] MEDS ORDERED: ASPIRIN 81 MG CHEW (CHILDREN'S ASA) ONE (05:45)
[2022-01-04] MEDS ORDERED: cefTRIAXone 1 GM PRE-MIX 50 ML IV STA (06:05)
--- NOTE | 2022-01-04 06:17 | Diagnostic Imaging Report ---
PROCEDURE: CT angiography of the chest with contrast. TECHNIQUE: Multiple contiguous axial images were obtained through the chest after uneventful bolus administration of intravenous contrast. 3D reconstructed CTA MIP acquisitions were also performed. Auto Exposure Controls were utilized during the CT exam to meet ALARA standards for radiation dose reduction. INDICATION: Right-sided chest pain. History of lung and brain cancer. COMPARISON: 10/12/2021 FINDINGS: No abnormal intraluminal filling defect is seen within the pulmonary arteries to the 1st subsegmental division. Thoracic aorta shows mild scattered atherosclerotic disease. By NASCET criteria, there is no focal significant stenosis. There is no evidence of dissection or aneurysm. Heart size is within normal limits. There is mild pericardial effusion. Pericardial effusion measures approximately 1.4 cm in depth. Multiple collateral veins of the chest, mediastinum, and paraspinous region are noted. There is suboptimal opacification of the superior vena cava. Indwelling left subclavian Port-A-Cath is noted. There does appear to be some thrombus extending from the left subclavian vein into the innominate vein and SVC. SVC appears to potentially completely occluded. Evaluation of lung arrieta demonstrates moderate right-sided effusion. There is redemonstration masslike opacity of the right upper lobe extending to the right superior hilar region. No large effusion is seen on the left. There is no pneumothorax on either side. Osseous structures show age-related degenerative changes. No acute bony abnormalities are identified. Included portions of the upper abdomen show innumerable hypoenhancing masses scattered throughout the liver. IMPRESSION: 1. No evidence of pulmonary embolus. 2. Probable complete occlusion of the SVC with partially occlusive thrombus extending into the left innominate and left subclavian veins. 3. Small pericardial effusion. 4. Moderate right-sided pleural effusion. 5. Redemonstration right upper lobe mass extending towards the right suprahilar region. 6. Multiple hepatic masses. These are new compared to prior exam and are presumed to represent metastatic disease. Dictated by: Dictated on workstation # [id number]
[2022-01-04] MEDS ORDERED: ENOXAPARIN 100 MG/1 ML (LOVENOX) SYR SC ONE (07:15)
[2022-01-04] MEDS ORDERED: HYDROcodone/APAP 7.5 MG/325 MG (LORTAB, LORCET PLUS) TABLET PO ONE (07:15)
[2022-01-04] MEDS ORDERED: HYDROcodone/APAP 7.5 MG/325 MG (LORTAB, LORCET PLUS) TABLET PO PRN (08:30)
[2022-01-04] MEDS ORDERED: ONDANSETRON 4 MG/2 ML (SDV) Z0FRAN IVP PRN (08:30)
[2022-01-04 09:05] VITALS: BP 112/79
[2022-01-04] MEDS ORDERED: RT-ALBUTEROL/IPRATROPIUM 3 ML (DUONEB) VIAL INH PRN (09:15)
[2022-01-04 11:55] VITALS: BP 93/52
--- NOTE | 2022-01-04 13:14 | Occupational Therapy Eval ---
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 He states he receives assistance with bathing, but able to complete all other adls without assist. He uses a walker at baseline. Pt is currently receiving Palliative care services. Reviewed History: Yes Social History Home: Senior Living Entry Into Home: Level Entry ADL-Prior Level of Function SCALE: Activities may be completed with or without assistive devices. 9-Mfypejansb-egnkljj completes the activity by him/herself with no assistance from a helper. 5-Set-up or Clean-up Assistance-helper sets up or cleans up; patient completes activity. [place] assists only prior to or following the activity. 4-Supervision or Touching Assistance-helper provides verbal cues and/or touching/steadying and/or contact guard assistance as patient completes activity. Assistance may be provided throughout the activity or intermittently. 3-Partial/Moderate Assistance-helper does LESS THAN HALF the effort. [place] lifts, holds or supports trunk or limbs, but provides less than half the effort. 2-Substantial/Maximal Assistance-helper does MORE THAN HALF the effort. [place] lifts or holds trunk or limbs and provides more than half the effort. 3-Zatdvijlt-xdyfsx does ALL the effort. Patient does none of the effort to complete the activity. Or, the assistance of 2 or more helpers is required for the patient to complete the activity. If activity was not attempted, code reason: 7-Patient Refused. 9-Not Applicable-not attempted and the patient did not perform the activity before the current illness, exacerbation or injury. 10-Not Attempted due to Environmental Limitations-(lack of equipment, weather restraints, etc.). 88-Not Attempted due to Medical Conditions or Safety Concerns. Self Care: Needed Some Help Functional Cognition: Unknown DME/Equipment: Bath Bench, Grab Bars, Shower Drive Self: No OT Current Status Subjective Pt denies pain, requests to use toilet. Appearance Pt returned to supine in bed, PHONE TRIAGE SPECIALIST in room at OT departure. Mental Status/Objective Patient Orientation: Person, Place, Situation Attachments: IV Current Hand Dominance: Right ADL-Treatment On/Off Footwear (QC): 4 Toileting Hygiene (QC): 4 Supine>sit: SBA. Poor safety awareness as pt attempting to squeeze through bed rail despite having opposite bed rail (side closer to bathroom) already down. Sit<>stand: SBA-CGA. Impulsive movements. He ambulated to/from bathroom with CGA-min a and use of walker. Cues for safety and slowing speed. 1 lateral LOB needing min-mod a to recover. He sat on toilet to void. Steadying assist required when pulling brief over hips. He returned to sitting on EOB and able to demonstrate donning/doffing of his socks with SBA and extra time. Swelling notable in RUE. Pt frequently stating that this therapist needed to wipe water off the floor but no water was found. Despite receiving palliative services at custodial, pt requests to continue with OT services while in the hospital in order to maintain his strength and endurance for functional tasks. Education OT Patient Education: Correct positioning, Energy conservation, Modified ADL techniques, Purpose of tx/functional activities, Safety issues, Transfer techniques Teaching Recipient: Patient Teaching Methods: Demonstration, Discussion Response to Teaching: Verbalize Understanding, Return Demonstration, Reinforcement Needed OT Batch Heat Treat Operator Goals Alf Goals Time Frame: Jan 18, 2022 Eating (QC): 5 Oral Hygiene (QC): 5 Toileting Hygiene (QC): 6 Shower/Bathe Self (QC): 3 Upper Body Dressing (QC): 4 Lower Body Dressing (QC): 4 On/Off Footwear (QC): 5 1=Demonstrate adherence to instructed precautions during ADL tasks. 2=Patient will verbalize/demonstrate understanding of assistive devices/modifications for ADL. 3=Patient will improve strength/tolerance for activity to enable patient to perform ADL's. OT Education/Plan Problem List/Assessment Assessment: Decreased Activ Tolerance, Decreased Safety Aware, Impaired Cognition, Impaired Funct Balance, Impaired Self-Care Skills Discharge Recommendations Plan/Recommendations: Continue POC Target Placement Anticipate return to custodial with continued support from staff Treatment Plan/Plan of Care Treatment,Training & Education: Yes Patient would benefit from OT for education, treatment and training to promote independence in ADL's, mobility, safety and/or upper extremity function for ADL's. Plan of Care: ADL Retraining, Caregiver Training, Functional Mobility, Group Exercise/Act as Ind, UE Funct Exercise/Act, W/C Management Training Treatment Duration: Jan 18, 2022 Frequency: 3 times per week (3-5x/week) Estimated Hrs Per Day: .25 hour per day Agreement: Yes Rehab Potential: Poor Time/GCodes Start Time: 12:49 Stop Time: 13:03 Total Time Billed (hr/min): 14 Billed Treatment Time 1 visit Nela Mcintosh OT Jan 04, 2022 13:14
--- NOTE | 2022-01-04 14:09 | Physical Therapy Evaluation ---
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 9-Xnekmfqozi-hribcic completes the activity by him/herself with no assistance from a helper. 5-Set-up or Clean-up Assistance-helper sets up or cleans up; patient completes activity. [place] assists only prior to or following the activity. 4-Supervision or Touching Assistance-helper provides verbal cues and/or touching/steadying and/or contact guard assistance as patient completes activity. Assistance may be provided throughout the activity or intermittently. 3-Partial/Moderate Assistance-helper does LESS THAN HALF the effort. [place] lifts, holds or supports trunk or limbs, but provides less than half the effort. 2-Substantial/Maximal Assistance-helper does MORE THAN HALF the effort. [place] lifts or holds trunk or limbs and provides more than half the effort. 0-Lvpkganbd-jzvblt does ALL the effort. Patient does none of the effort to complete the activity. Or, the assistance of 2 or more helpers is required for the patient to complete the activity. If activity was not attempted, code reason: 7-Patient Refused. 9-Not Applicable-not attempted and the patient did not perform the activity before the current illness, exacerbation or injury. 10-Not Attempted due to Environmental Limitations-(lack of equipment, weather restraints, etc.). 88-Not Attempted due to Medical Conditions or Safety Concerns. Bed Mobility: 6 Transfers (B,C,W/C): 6 Gait: 6 Indoor Mobility (Ambulation): Independent Stairs: Not Applicalbe Prior Devices Use: Walker PT Evaluation-Current Subjective Patient agrees to PT. Objective Patient Orientation: Person ROM/Strength ROM Lower Extremities bilateral LE WFL Strength Lower Extremities 4-/5 grossly bilateral LE Integumentary/Posture Bowel Incontinence: Yes Bladder Incontinence: Yes Posture WFL Neuromuscular (Tone, Coordination, Reflexes) grossly intact Sensory Vision: Functional Hearing: Functional Hand Dominance: Right Transfers Lying to Sitting/Side of Bed(Q: 6 Sit to Stand (QC): 4 Chair/Gfy-la-Drlch Xfer(QC): 4 Gait Does the Patient Walk?: Yes Mode of Locomotion: Both Anticipated Mode of Locomotion: Both Walk 10 feet (QC): 4 Walk 50 ft with 2 Turns(QC): 4 Walk 150 ft (QC): 4 Distance: 150' Gait Assistive Device: FWW Comments/Gait Description safe and functional Balance Sitting Static: Normal Sitting Dynamic: Normal Standing Static: Fair Standing Dynamic: Fair Assessment/Needs Patient will be seen short term by skilled PT to address functional mobility to ensure safe return to NH at maximum LOF. Rehab Potential: Guarded PT Signal Worker Helper Goals Signal Worker Helper Goals PT Penitentiary Goals Time Frame: Jan 13, 2022 Roll Left & Right (QC): 6 Sit to Lying (QC): 6 Lying-Sitting on Side/Bed(QC): 6 Sit to Stand (QC): 6 Chair/Bnn-ab-Ndnnf Xfer(QC): 6 Toilet Transfer (QC): 6 Walk 10 feet (QC): 6 Walk 50ft with 2 Turns (QC): 6 Walk 150 ft (QC): 6 PT Plan Problem List Problem List: Activity Tolerance, Functional Strength, Safety, Balance, Gait, Transfer Treatment/Plan Treatment Plan: Continue Plan of Care Treatment Plan: Education, Functional Activity Yulissa, Functional Strength, Gait, Safety, Therapeutic Exercise, Transfers Treatment Duration: Jan 13, 2022 Frequency: 6 times per week Estimated Hrs Per Day: .25 hour per day Time/GCodes Time In: 1330 Time Out: 1344 Total Billed Treatment Time: 14 [facility] LEAN[facility]O PHILLIPS PT Jan 04, 2022 14:09
[2022-01-04] MEDS: CATHETER FLUSH 10 ML SYR IV SCH ×2 (14:11→20:34)
[2022-01-04 15:15] VITALS: BP 113/65
--- NOTE | 2022-01-04 16:21 | History & Physical-Hospitalist ---
History of Present Illness HPI/Chief Complaint Chinmay Del Rio is a 61 year old male with PMH metastatic lung cancer to the brain, bone, and liver, SVC syndrome, HTN, COPD, who presented with pain. He is a [facility] patient. 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 He denies shortness of breath. He denies cough. He reports abdominal pain. He denies nausea and vomiting. He has had two bowel movements today. He last got chemotherapy a week or two ago. Source: patient Exam Limitations: no limitations Date Seen 01/04/22 Time Seen by a Provider: 11:30 Attending Physician No,Local Physician PCP Admitting Physician: Melissa Feldman MD Attending Physician: Melissa Feldman MD Referring Physician Date of Admission Jan 04, 2022 at 07:13 Home Medications & Allergies Home Medications Reviewed patient Home Medication Reconciliation performed by pharmacy medication reconciliations mechanical manufacturing technician and/or nursing. Patients Allergies have been reviewed. Allergies Allergies Coded Allergies Penicillins (Verified Allergy, Unknown, 07/26/21) melatonin (Verified Allergy, Unknown, 07/26/21) Past Ximtces-Erdubl-Quiezn Hx Patient Social History Tobacco Use?: Yes Smoking Status: Former Smoker Use of E-Cig and/or Vaping dev: No Substance use?: No Alcohol Use?: No Pt feels they are or have been: No Immunizations Up To Date Date of Influenza Vaccine: May 24, 2022 First/Initial COVID19 Vaccinat: SEPTEMBER 2020 Second COVID19 Vaccination Alexey: OCTOBER 2020 Tetanus Booster (TDap): Less Than 5 Years Hepatitis A: No Hepatitis B: No Current Status Advance Directives: No Communicates: Verbally Primary Language: Dutch Preferred Spoken Language: Dutch Implanted or Applied Medical D: Stents Past Medical History Surgeries: Abdominal, Eye Surgery COPD, Emphysema Currently Using CPAP: No Currently Using BIPAP: No Chronic Edema/Swelling, Hypertension Abdominal Hernia Cataract Loss of Vision: Denies Brain, Bone, Lung Did You Recieve Any Treatments: Yes What Type of Treatment Did You: Chemotherapy Sleep Difficulties Blood Disorders: No Family Medical History Heart Disease, Cancer, Diabetes SOCIAL HISTORY: -SMOKES 1 1/2 PPD--CLAIMS HE JUST QUIT, PER PT 10/15/21 -ETOH--"30 PACK EVERY 3 DAYS"--CLAIMS HE JUST QUIT, PER PT 10/15/21 -DRUGS--DENIES USE PAST SURGICAL HISTORY: -CHEST TUBE FOR PNEUMOTHORAX 06/17/21 -CT GUIDED LUNG BIOPSY -PORT LEFT CHEST 07/2021 -BILATERAL INGUINAL HERNIA REPAIRS -BILATERAL CATARACT SURGERY Review of Systems Constitutional: no symptoms reported EENTM: no symptoms reported Respiratory: no symptoms reported Cardiovascular: no symptoms reported Gastrointestinal: abdominal pain Genitourinary: no symptoms reported Musculoskeletal: no symptoms reported Physical Exam Physical Exam Vital Signs Vital Signs - First Documented 01/04/22 01/04/22 02:45 09:05 Temp 36.8 Pulse 112 Resp 24 B/P (MAP) 119/92 (101) Pulse Ox 95 O2 Delivery Room Air FiO2 21 Capillary Refill : Less Than 3 Seconds Height, Weight, BMI Height: 6'0" Weight: 169lbs. oz. 76.349906ow; 32.99 BMI Method:Stated General Appearance: No Apparent Distress, Obese HEENT: PERRL/EOMI, Pharynx Normal Neck: Normal Inspection, Supple Respiratory: No Respiratory Distress, Decreased Breath Sounds Cardiovascular: Regular Rate, Rhythm, No Murmur Gastrointestinal: Normal Bowel Sounds, Soft, Tenderness Extremity: Normal Inspection, Non Tender, Pedal Edema Neurologic/Psychiatric: Alert, Normal Mood/Affect Skin: Normal Color, Warm/Dry Results Results/Procedures Labs Laboratory Tests 01/04/22 03:29 Patient resulted labs reviewed. Imaging: Reviewed Imaging Report Assessment/Plan Admission Diagnosis SVC thrombus Admission Status: Observation Assessment and Plan SVC thrombosis SVC syndrome Metastatic lung cancer to multiple sites (brain, bone, liver) Pain of metastatic malignancy Goals of care discussion CT with SVC thrombosis Given Lovenox Begin Eliquis Continue Hydrocodone Add Fentanyl patch Discussed palliative care and hospice, reports already on bridge program with Jewel Figueroa Diagnosis/Problems Diagnosis/Problems (1) Thrombosis of superior vena cava Status: Acute (2) Superior vena cava syndrome Status: Acute (3) Metastatic lung cancer (metastasis from lung to other site) Status: Acute (4) Pain of metastatic malignancy Status: Acute MELISSA FELDMAN MD Jan 04, 2022 16:21
[2022-01-04] MEDS ORDERED: fentaNYL PATCH 25 MCG (DURAGESIC) TD SCH (16:30)
[2022-01-04 19:22] VITALS: BP 107/72
[2022-01-04] MEDS: RT-ALBUTEROL/IPRATROPIUM 3 ML (DUONEB) VIAL INH SCH (19:56)
[2022-01-04] MEDS: APIXABAN 5 MG (ELIQUIS) TABLET PO SCH (20:34)
[2022-01-05] VITALS: BP 99/54
[2022-01-05 03:58] VITALS: BP 116/71
[2022-01-05] MEDS: CATHETER FLUSH 10 ML SYR IV SCH ×2 (05:47→13:19)
[2022-01-05] MEDS: RT-ALBUTEROL/IPRATROPIUM 3 ML (DUONEB) VIAL INH SCH (07:35)
[2022-01-05 07:39] VITALS: BP 121/79
[2022-01-05] MEDS: APIXABAN 5 MG (ELIQUIS) TABLET PO SCH (08:23)
[2022-01-05 09:20] LABS: BASOPHILS # (AUTO) 0.1 10^3/uL (0.0-0.1); BASOPHILS % (AUTO) 1 % (0-10); EOSINOPHILS # (AUTO) 0.1 10^3/uL (0.0-0.3); EOSINOPHILS % (AUTO) 1 % (0-10); HEMATOCRIT 27 % (40-54); HEMOGLOBIN 8.7 g/dL (13.3-17.7); LYMPHOCYTES # (AUTO) 0.6 10^3/uL (1.0-4.0); LYMPHOCYTES % (AUTO) 9 % (12-44); MEAN CORPUSCULAR HEMOGLOBIN 28 pg (25-34); MEAN CORPUSCULAR HGB CONC 32 g/dL (32-36); MEAN CORPUSCULAR VOLUME 87 fL (80-99); MEAN PLATELET VOLUME 9.4 fL (9.0-12.2); MONOCYTES # (AUTO) 0.8 10^3/uL (0.0-1.0); MONOCYTES % (AUTO) 13 % (0-12); NEUTROPHILS # (AUTO) 4.5 10^3/uL (1.8-7.8); NEUTROPHILS % (AUTO) 72 % (42-75); PLATELET COUNT 381 10^3/uL (130-400); WHITE BLOOD COUNT 6.3 10^3/uL (4.3-11.0)
[2022-01-05 09:29] LABS: ALBUMIN 3.1 GM/DL (3.2-4.5); BILIRUBIN,TOTAL 0.9 MG/DL (0.1-1.0); CALCIUM 9.5 MG/DL (8.5-10.1); POTASSIUM 4.2 MMOL/L (3.6-5.0); TOTAL PROTEIN 6.8 GM/DL (6.4-8.2)
--- NOTE | 2022-01-05 11:01 | Physical Therapy Daily Note ---
PT Daily Note-Current Subjective Patient agrees to PT. No c/o at this time. Transfers SCALE: Activities may be completed with or without assistive devices. 2-Nqxhdjikaa-vbnkesg completes the activity by him/herself with no assistance from a helper. 5-Set-up or Clean-up Assistance-helper sets up or cleans up; patient completes activity. [place] assists only prior to or following the activity. 4-Supervision or Touching Assistance-helper provides verbal cues and/or touching/steadying and/or contact guard assistance as patient completes activity. Assistance may be provided throughout the activity or intermittently. 3-Partial/Moderate Assistance-helper does LESS THAN HALF the effort. [place] lifts, holds or supports trunk or limbs, but provides less than half the effort. 2-Substantial/Maximal Assistance-helper does MORE THAN HALF the effort. [place] lifts or holds trunk or limbs and provides more than half the effort. 3-Oszulirke-fjqpiz does ALL the effort. Patient does none of the effort to complete the activity. Or, the assistance of 2 or more helpers is required for the patient to complete the activity. If activity was not attempted, code reason: 7-Patient Refused. 9-Not Applicable-not attempted and the patient did not perform the activity before the current illness, exacerbation or injury. 10-Not Attempted due to Environmental Limitations-(lack of equipment, weather restraints, etc.). 88-Not Attempted due to Medical Conditions or Safety Concerns. Sit to Stand (QC): 4 Chair/Nug-xg-Vbbjq Xfer(QC): 4 Gait Training Distance: 225' Walk 10 feet (QC): 4 Walk 50 ft with 2 Turns(QC): 4 Walk 150 ft (QC): 4 Gait Assistive Device: FWW 1 episode of mild LOB with self correct Assessment Patient toileted independently. Ambulated in hallway 225' with 1 episode of slight LOB with self correct. Patient in recliner with need met. PT Insurance Risk Manager Goals Intermediate Goals PT Insurance Risk Manager Goals Time Frame: Jan 13, 2022 Roll Left & Right (QC): 6 Sit to Lying (QC): 6 Lying-Sitting on Side/Bed(QC): 6 Sit to Stand (QC): 6 Chair/Lkc-on-Lebhz Xfer(QC): 6 Toilet Transfer (QC): 6 Walk 10 feet (QC): 6 Walk 50ft with 2 Turns (QC): 6 Walk 150 ft (QC): 6 PT Plan Treatment/Plan Treatment Plan: Continue Plan of Care Treatment Plan: Education, Functional Activity Yulissa, Functional Strength, Gait, Safety, Therapeutic Exercise, Transfers Treatment Duration: Jan 13, 2022 Frequency: 6 times per week Estimated Hrs Per Day: .25 hour per day Time/GCodes Time In: 1030 Time Out: 1040 Total Billed Treatment Time: 10 Total Billed Treatment 1 visit FA 10 min LEANDRO PHILLIPS PT Jan 05, 2022 11:01
--- NOTE | 2022-01-05 11:16 | Occupational Ther Daily Note ---
OT Current Status-Daily Note Subjective Pt alert, sitting in recliner. Pt agrees to therapy. No c/o pain. Mental Status/Objective Patient Orientation: Person, Place, Time, Situation Attachments: IV ADL-Treatment Pt agrees to sponge bath. Sitting at sink, pt completed bathing independently using counter to stabilize self when standing to cleanse buttock/rafy area. After set up, pt able to complete footwear and lower body dressing by self. Pt fatigues quickly and requires recovery breaks. After session, pt sitting in re cliner with call light/phone in reach. All needs met in room. Therapy Code Descriptions/Definitions Functional [place] Measure: 0=Not Assessed/NA 4=Minimal Assistance 1=Total Assistance 5=Supervision or Setup 2=Maximal Assistance 6=Modified [place] 3=Moderate Assistance 7=Complete IndependenceSCALE: Activities may be completed with or without assistive devices. 0-Gnbwchfewd-qesfqjs completes the activity by him/herself with no assistance from a helper. 5-Set-up or Clean-up Assistance-helper sets up or cleans up; patient completes activity. [place] assists only prior to or following the activity. 4-Supervision or Touching Assistance-helper provides verbal cues and/or touching/steadying and/or contact guard assistance as patient completes activity. Assistance may be provided throughout the activity or intermittently. 3-Partial/Moderate Assistance-helper does LESS THAN HALF the effort. [place] lifts, holds or supports trunk or limbs, but provides less than half the effort. 2-Substantial/Maximal Assistance-helper does MORE THAN HALF the effort. [place] lifts or holds trunk or limbs and provides more than half the effort. 8-Boigaqfos-jbpgcy does ALL the effort. Patient does none of the effort to complete the activity. Or, the assistance of 2 or more helpers is required for the patient to complete the activity. If activity was not attempted, code reason: 7-Patient Refused. 9-Not Applicable-not attempted and the patient did not perform the activity before the current illness, exacerbation or injury. 10-Not Attempted due to Environmental Limitations-(lack of equipment, weather restraints, etc.). 88-Not Attempted due to Medical Conditions or Safety Concerns. Shower/Bathe Self (QC): 6 Lower Body Dressing (QC): 5 On/Off Footwear: 5 Toileting Hygiene (QC): 6 Toilet Transfer (QC): 6 (Using w/c and grabbars) OT Railroad Baggage Porter Goals Long-Term Goals Time Frame: Jan 18, 2022 Eating (QC): 5 Oral Hygiene (QC): 5 Toileting Hygiene (QC): 6 Shower/Bathe Self (QC): 3 Upper Body Dressing (QC): 4 Lower Body Dressing (QC): 4 On/Off Footwear (QC): 5 1=Demonstrate adherence to instructed precautions during ADL tasks. 2=Patient will verbalize/demonstrate understanding of assistive devices/modifications for ADL. 3=Patient will improve strength/tolerance for activity to enable patient to perform ADL's. OT Education/Plan Problem List/Assessment Assessment: Decreased Activ Tolerance Discharge Recommendations Plan/Recommendations: Continue POC Treatment Plan/Plan of Care Patient would benefit from OT for education, treatment and training to promote independence in ADL's, mobility, safety and/or upper extremity function for ADL's. Plan of Care: ADL Retraining, Caregiver Training, Functional Mobility, Group Exercise/Act as Ind, UE Funct Exercise/Act, W/C Management Training Treatment Duration: Jan 18, 2022 Frequency: 3 times per week (3-5x/week) Estimated Hrs Per Day: .25 hour per day Agreement: Yes Rehab Potential: Guarded Time/GCodes Start Time: 10:45 Stop Time: 11:20 Total Time Billed (hr/min): 35 Billed Treatment Time 1 visit-ADL 2 (35 min) MARE BANKS Jan 05, 2022 11:16
[2022-01-05] MEDS ORDERED: APIX5TAB PO (11:26)
--- NOTE | 2022-01-05 11:27 | Discharge Summary ---
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 He is a [facility] patient. 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 Last ch emo was 1 wk ago.Pt was admitted d/t NH concerns of SOA, right sided chest pain and recent pneumonia. Chest CTA revealed SVC thrombus and new metastatic disease to the liver. Pt was found to have elevated d-dimer as well. Eliquis was started. Pt's pain was managed with lortab and fentanyl patch. Pts vitals remained stable throughout hospital course. Pt is from [facility] and is familiar with [facility]. Plan is to d/c pt back to [facility] on Eliquis. KARIN MAHMOOD STUDENT Labs and Pending Lab Test: Laboratory Tests 01/05/22 09:03: White Blood Count 6.3, Red Blood Count 3.09L, Hemoglobin 8.7L, Hematocrit 27L, Mean Corpuscular Volume 87, Mean Corpuscular Hemoglobin 28, Mean Corpuscular Hemoglobin Concent 32, Red Cell Distribution Width 18.6H, Platelet Count 381, Mean Platelet Volume 9.4, Immature Granulocyte % (Auto) 4, Neutrophils (%) (Auto) 72, Lymphocytes (%) (Auto) 9L, Monocytes (%) (Auto) 13H, Eosinophils (%) (Auto) 1, Basophils (%) (Auto) 1, Neutrophils # (Auto) 4.5, Lymphocytes # (Auto) 0.6L, Monocytes # (Auto) 0.8, Eosinophils # (Auto) 0.1, Basophils # (Auto) 0.1, Immature Granulocyte # (Auto) 0.2H, Sodium Level 133L, Potassium Level 4.2, Chloride Level 99, Carbon Dioxide Level 19L, Anion Gap 15H, Blood Urea Nitrogen 19H, Creatinine 1.00, Estimat Glomerular Filtration Rate 86, BUN/Creatinine Ratio 19, Glucose Level 125H, Calcium Level 9.5, Corrected Calcium 10.2H, Total Bilirubin 0.9, Aspartate Amino Transf (AST/SGOT) 25, Alanine Aminotransferase (ALT/SGPT) 21, Alkaline Phosphatase 146H, Total Protein 6.8, Albumin 3.1L Home Meds Active Prednisone 10 Mg Tab.ds.pk 10 Mg PO DAILY Take 6 tabs(60mg)daily,decrease by 1 tab(10MG)daily. Montelukast Sodium 10 Mg Tablet 10 Mg PO HS Reported Pantoprazole Sodium 40 Mg Tablet.dr 40 Mg PO DAILY Saline Nasal [place] (Sodium Chloride) 0.65 % [place] 1 [place] NS Q2H PRN Ondansetron HCl 8 Mg Tablet 8 Mg PO Q8H PRN Cough Drops (Menthol) 5.8 Mg Lozenge 5.8 Mg MM Q2H PRN Sodium Chloride 1 Gram Tab 1 Gm PO 0900,1700 Potassium Chloride 20 Meq Tablet.er 20 Meq PO DAILY Furosemide 40 Mg Tablet 40 Mg PO DAILY Tylenol (Acetaminophen) 325 Mg Tablet 650 Mg PO Q4 -6H PRN TAKES 2 (325MG) TABS Ventolin Hfa (Albuterol Sulfate) 1 Puff Puff 2 Puff INH Q6H PRN Senna (Sennosides) 8.6 Mg Tablet 8.6 Mg PO DAILY PRN Hydrocodone-Acetamin 5-325 mg (Hydrocodone/Acetaminophen) 1 Each Tablet 1 Ea PO Q6H PRN Cyclobenzaprine HCl 10 Mg Tablet 10 Mg PO Q12H PRN Fluticasone Propionate 16 Gm [place].susp 1 [place] NSEACH BID Lisinopril 10 Mg Tablet 10 Mg PO DAILY HOLD FOR SBP <100 OR PULSE <60- NOTIFY PCP IF HELD FOR 3 CONSECUTIVE DAYS Cetirizine HCl 10 Mg Tablet 10 Mg PO DAILY Iprat-Albut 0.5-3(2.5) mg/3 ml (Ipratropium/Albuterol Sulfate) 3 Ml Ampul.neb 3 Ml IH Q6H PRN Assessment/Pt Instructions 1 week Discharge Planning: <30 minutes discharge planning Discharge Instructions Discharge Diet: No Restrictions Activity as Tolerated: Yes Discharge Physical Examination Vital Signs Vital Signs Date Time Temp Pulse Resp B/P (MAP) Pulse Ox O2 Delivery O2 Flow Rate FiO2 01/05/22 08:00 Room Air 01/05/22 07:39 38.0 118 20 121/79 (93) 92 01/04/22 09:05 21 General Appearance: No Apparent Distress, WD/WN, Chronically ill Respiratory: Lungs Clear Cardiovascular: Regular Rate, Rhythm Allergies: Coded Allergies: Penicillins (Verified Allergy, Unknown, 07/26/21) melatonin (Verified Allergy, Unknown, 07/26/21) Discharge Summary Date of Admission Jan 04, 2022 at 07:13 Date of Discharge Discharge Date: Jan 05, 2022 Admission Diagnosis SVC thrombus Comfort Measures/ End of Life Care: Hospice Care (Home) Discharge Diagnosis (1) 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
[2022-01-05 11:43] VITALS: BP 111/69
--- NOTE | 2022-01-05 12:29 | Progress Note ---
KARIN MAHMOOD MED STUDENT 01/05/22 1229: Progress Note Chinmay Del Rio is a 61 year old male with PMH metastatic lung cancer to the brain, bone, and liver, SVC syndrome, HTN, COPD, who presented with pain. He is a [facility] patient. 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 Last chemo was 1 wk ago.Pt was admitted d/t NH concerns of SOA, right sided chest pain and recent pneumonia. Chest CTA revealed SVC thrombus and new metastatic disease to the liver. Pt was found to have elevated d-dimer as well. Eliquis was started. Pt's pain was managed with lortab and fentanyl patch. Pts vitals rem ained stable throughout hospital course. Pt is from [facility] and is familiar with [facility]. Plan is to d/c pt back to [facility] on Eliquis. APRIL GALVEZ DO 01/05/222047: Supervisory-Addendum Brief Verification & Attestation Participated in pt care: history, MDM, physical Personally performed: exam, history, MDM, supervision of care Care discussed with: Medical Student Procedures: n/a Results interpretation: Verified all documentation Verification and Attestation of Medical Student E/M Service A medical student performed and documented this service in my presence. I reviewed and verified all information documented by the medical student and made modifications to such information, when appropriate. I personally performed the physical exam and medical decision making. April Galvez Jan 05, 2022,20:48 KARIN MAHMOOD MED STUDENT Jan 05, 2022 12:29 APRIL GALVEZ DO Jan 05, 2022 20:48
[2022-01-05 17:30] VITALS: BP 111/69
[2022-01-07] MEDS ORDERED: FENTANYL PATCH REMOVAL TP SCH (16:29)
[2022-01-11] MEDS ORDERED: APIXABAN 5 MG (ELIQUIS) TABLET PO SCH (21:00)
== END 2022-01-05 11:20 ==
LOC: EDUNIT# 02:30 → ER 02:32 → 4TH 07:13 → UNDOADMOB 07:13 → 4TH 08:10 → UNDODISOB 01-05 17:30
PROVIDERS: ADMIT Family Medicine; ATTEND Internal Medicine
DX: I82.210 Acute embolism and thrombosis of superior vena cava (principal); I87.1 Compression of vein; C34.90 Malignant neoplasm of unspecified part of unspecified bronchus or lung; G89.3 Neoplasm related pain (acute) (chronic); Z87.891 Personal history of nicotine dependence; Z92.21 Personal history of antineoplastic chemotherapy; E87.1 Hypo-osmolality and hyponatremia; R77.8 Other specified abnormalities of plasma proteins
CPT/HCPCS: 36415; 71275; 80053; 81000; 83605; 83880; 84145; 84484; 85025; 85379; 85610; 85730; 87040; 87636; 93005; 94640; G0378